=== PATIENT | female | born 1975 | race African-American/Black ===

== ENCOUNTER 2016-04-24 01:30 | Inpatient (IN) | payer MEDICARE, MEDICAID ==
[~2016-04-24] VITALS: Ht 160 cm; Wt 53.8 kg
[~2016-04-24 01:30] MED LIST: 1-ME1LIQ PO; ASPI81TA82 PO; ATOR10TA PO; ELIP667T PO; EPZITAB4 PO; LABE300T PO; LAMI150 PO; LISI-363 PO; METH750T2 PO; PROT40TA PO; RENACAP2 PO; TUMS500C PO; [UNRECOGNIZED DRUG - CODE] PO
[2016-04-24 01:33] VITALS: BP 138/81; PULSE 84; RESP 16; TEMP 99.2; O2SAT 98
[2016-04-24] MEDS ORDERED: SODIUM CHLORIDE 0.9% FLUSH 5 ML FLUSH IVF PRN (09:45)
--- NOTE | 2016-04-24 09:50 | PD ---
HPI Chief Complaint: Abdominal Pain Time Seen by Provider: 09:37 Travel History International Travel<30 days: No Contact w/Intl Traveler<30days: No Traveled to known affect area: No History of Present Illness HPI Patient seen in triage. Is a 40-year-old woman with end-stage renal disease, on peritoneal dialysis at home, as well as HIV, on medications, last viral load undetectable, who presents with 3 days of abdominal pain, copious watery diarrhea, and feeling generally poorly. Her dialysate fluid has been dark in color. She she's been weak and barely able to perform her dialysis which he has been doing it. No blood. No vomiting. No definite fevers. History Past Medical History Narrative Medical HIV End-stage renal disease, on home peritoneal dialysis Hypertension Tetanus Vaccination: < 5 Years Influenza Vaccination: Yes : 1 Para: 1 Social History Alcohol Use: No Tobacco Use: No Allergies-Medications (Allergen,Severity, Reaction): Coded Allergies: Iron Dextran (Verified Allergy, Severe, IRON INJECTIONS, 04/24/16) PT STATES THEY HAVE NOW CHANGED BRANDS OF IRON & SHE IS ABLE TO TAKE THE NEW BRAND OF IRON Reported Meds & Prescriptions Reported Meds & Active Scripts Active Robaxin (Methocarbamol) 750 Mg Tab 750 Mg PO Q8HR Reported Epzicom 600/300 (Abacavir/Lamivudine) Tab 1 Tab PO HS Tums (Calcium Carbonate) 500 Mg Chew 500 Mg PO DAILY Lisinopril 20 mg (Lisinopril) 20 Mg Tab 1 Tab PO BID Atorvastatin 10 mg (Atorvastatin Calcium) 10 Mg Tab 1 Tab PO 3 DAYS/WEEK 30 Days Renal (B-Complex W/ C & Folic Acid) Softgel Cap 1 Cap PO DAILY Protonix (Pantoprazole Sodium) 40 Mg Tabdr 40 Mg PO DAILY Aspir-81 (Aspirin) 81 Mg Tab 81 Mg PO DAILY Amlodipine Besylate 10 mg (Amlodipine Besylate) 10 Mg Tab 10 Mg PO DAILY Labetalol Hcl (Labetalol HCl) 300 Mg Tab 300 Mg PO TID Sustiva (Efavirenz) 200 Mg Cap 600 Mg PO HS Epivir (Lamivudine) 150 Mg Tab 0 PO HS Phoslo (Calcium Acetate) 667 Mg Cap 2,001 Mg PO TID Review of Systems Except as stated in HPI: all other systems reviewed are Neg Physical Exam Narrative GENERAL: Somewhat ill-appearing 40-year-old woman, looks uncomfortable and nontoxic. SKIN: Warm and dry. Decreased skin turgor. HEAD: Atraumatic. Normocephalic. CARDIOVASCULAR: Regular rate and rhythm. No murmur appreciated. RESPIRATORY: No accessory muscle use. Clear to auscultation. Breath sounds equal bilaterally. GASTROINTESTINAL: Abdomen soft, non-tender, nondistended. Hepatic and splenic margins not palpable. MUSCULOSKELETAL: No obvious deformities. No edema. NEUROLOGICAL: Awake and alert. No obvious cranial nerve deficits. Motor grossly within normal limits. Normal speech. PSYCHIATRIC: Appropriate mood and affect; insight and judgment normal. Data Data Last Documented VS Vital Signs Date Time Temp Pulse Resp B/P Pulse Ox O2 Delivery O2 Flow Rate FiO2 04/24/16 01:33 99.2 84 16 138/81 98 Orders Complete Blood Count With Diff (04/24/16 09:43) Comprehensive Metabolic Panel (04/24/16 09:43) Lipase (04/24/16 09:43) Lactic Acid (04/24/16 09:43) Prothrombin Time / Inr (Pt) (04/24/16 09:43) Act Partial Throm Time (Ptt) (04/24/16 09:43) Iv Access Insert/Monitor (04/24/16 09:43) Ecg Monitoring (04/24/16 09:43) Oximetry (04/24/16 09:43) NPO (04/24/16 09:43) Sodium Chloride 0.9% Flush (Ns Flush) (04/24/16 09:45) Blood Culture (04/24/16 09:43) Stool Ova And Parasite Screen (04/24/16 09:43) Stool Culture With E.Coli 0157 (04/24/16 09:43) C Diff Toxin Pcr (04/24/16 09:43) MDM Medical Decision Making Medical Screen Exam Complete: Yes Emergency Medical Condition: Yes Differential Diagnosis Bacterial peritonitis, infectious diarrhea, opportunistic infection, diverticulitis, sepsis, other Narrative Course Medical decision making 40-year-old woman, appears somewhat unwell, presents with abdominal pain and diarrhea feeling poorly in the setting of end-stage renal disease or peritoneal dialysis, dark fluid, as well as HIV. Labs will be sent. Patient may need abdominal imaging. May need further evaluation for bacterial peritonitis. Patient will be sent for medical bed, with care assumed by provider in the back. Luisito Moreno MD Apr 24, 2016 09:50
[2016-04-24 10:19] LABS: AUTOMATED NEUTROPHIL # 10.5 TH/MM3 (1.8-7.7); BASOPHIL % 0.2 % (0.0-2.0); HEMATOCRIT 35.8 % (35.0-46.0); HEMO FLAGS DIFF FINAL; LYMPH % 3.8 % (9.0-44.0); LYMPHOCYTE # 0.4 TH/MM3 (1.0-4.8); MEAN CORPUSCULAR HEMOGLOBIN 33.9 PG (27.0-34.0); MEAN CORPUSCULAR HGB CONC 33.6 % (32.0-36.0); MONO % 4.2 % (0.0-8.0); NEUT % 91.8 % (16.0-70.0); PLATELET COUNT 236 TH/MM3 (150-450); RED BLOOD COUNT 3.54 MIL/MM3 (4.00-5.30); RED CELL DISTRIBUTION WIDTH 14.5 % (11.6-17.2); WHITE BLOOD COUNT 11.4 TH/MM3 (4.0-11.0)
[2016-04-24 10:25] LABS: APTT (PATIENT) 33.6 SEC (24.3-30.1); INTERNATIONAL NORMALIZED RATIO 1.1 RATIO; PROTHROMBIN TIME - PATIENT 11.9 SEC (9.8-11.6)
[2016-04-24 10:35] LABS: ALT (GPT) 36 U/L (10-53); ANION GAP 17 MEQ/L (5-15); AST (GOT) 43 U/L (15-37); BICARBONATE 22.9 MEQ/L (21.0-32.0); BLOOD UREA NITROGEN 77 MG/DL (7-18); CHLORIDE 93 MEQ/L (98-107); GLOMERULAR FILTRATION RATE 3 ML/MIN (>89); POTASSIUM 3.7 MEQ/L (3.5-5.1); SODIUM (NA) 133 MEQ/L (136-145)
[2016-04-24 10:37] LABS: ALKALINE PHOSPHATASE 66 U/L (45-117); TOTAL BILIRUBIN ADULT 0.7 MG/DL (0.2-1.0)
[2016-04-24 15:30] VITALS: BP 154/93; PULSE 89; RESP 18; RESP 20; TEMP 98.9; O2SAT 96
--- NOTE | 2016-04-24 16:06 | RADRPT ---
EXAM DATE/TIME: 04/24/2016 15:39 [facility] COMPARISON: No previous studies available for comparison. INDICATIONS : Abdomen pain with diarrhea for 3 days. Peritoneal dialysis patient ORAL CONTRAST: No oral contrast ingested. RADIATION DOSE: 9.96 CTDIvol (mGy) MEDICAL HISTORY : Renal failure, chronic. Gastroesophageal reflux disease. Hypertension. SURGICAL HISTORY : Hysterectomy. ENCOUNTER: Initial ACUITY: 3 days PAIN SCALE: 10/10 LOCATION: diffuse abdomen TECHNIQUE: Volumetric scanning of the abdomen and pelvis was performed. Using automated exposure control and ad justment of the mA and/or kV according to patient size, radiation dose was kept as low as reasonably achievable to obtain optimal diagnostic quality images. FINDINGS: LOWER LUNGS: The visualized lower lungs are clear. LIVER: Homogeneous density without lesion. There is no dilation of the biliary tree. No calcified gallston es. Large abdominal ascites. SPLEEN: Normal size without lesion. PANCREAS: Within normal limits. KIDNEYS: Small atrophic kidneys containing numerous bilateral calcifications. Bilateral renal cysts. There is a dialysis catheter present with tip in the right upper quadrant. Small cyst involving the right mid kidney is partially calcified. ADRENAL GLANDS: Within normal limits. VASCULAR: There is no aortic aneurysm. BOWEL/MESENTERY: There is no free intraperitoneal air or fluid. Small hiatal hernia. Multiple fluid-filled bowel loops . ABDOMINAL WALL: Within normal limits. RETROPERITONEUM: There is no lymphadenopathy. BLADDER: No wall thickening or mass. REPRODUCTIVE: Within normal limits. INGUINAL: There is no lymphadenopathy or hernia. MUSCULOSKELETAL: Within normal limits for patient age. CONCLUSION: 1. Multiple fluid-filled bowel loops. No obstruction. 2. Large amount of abdominal ascites. 3. Atrophic bilateral kidneys with numerous calcifications and cysts. Brandon Romero MD on April 24, 2016 at 16:02 Board Certified Radiologist. This report was verified electronically.
[2016-04-24] MEDS ORDERED: SODIUM CHLORIDE 0.9% FLUSH 5 ML FLUSH FLUSH PRN (16:45)
[2016-04-24] MEDS ORDERED: ACETAMINOPHEN 325 MG TAB PO PRN (16:45)
[2016-04-24] MEDS ORDERED: ONDANSETRON HCL 4 MG/2 ML VIAL IVP PRN (16:45)
[2016-04-24] MEDS ORDERED: NALOXONE HCL 0.4 MG/ML AMP IV PRN (16:45)
--- NOTE | 2016-04-24 16:50 | HHI.HP ---
[facility] Service Family Medicine Primary Care Physician Jarod Tian MD Admission Diagnosis diarrhea Diagnoses: International Travel<30 Days: No Contact w/Intl Traveler<30days: No Known Affected Area: No History of Present Illness This is a 40-year-old -Central [place] female with past history significant for end-stage renal disease, hypertension, and HIV for over 10 years. She is presenting today [facility] [facility] due to severe abdominal pain and diarrhea. About 3- 4 days ago she had a cold and the cold began to worsen and her abdominal pain started 3 days ago. She started having diarrhea 3 days ago as well. She says the diarrhea occurs every time she coughs. She denies any nausea or vomiting during this timeframe. Abdominal pain progressively worsened throughout the last few days and she's been feeling feverish and chills. She reports getting peritoneal dialysis every day 3 times a day however her last round of dialysis was Friday04/23/16 and she only did it one time that day, because she was feeling too sick to perform the dialysis. Prior to seeing the patient case of been discussed between the ED doctor and the biomass production manager who will be evaluating for possible SBP and need for antibiotics. Patient reports that the abdominal pain is diffuse throughout her entire body, and she feels like her belly is slightly swollen. She thinks the swelling is due to the fact that she has not had her dialysis. (Rj Lovelace MD R2) Review of Systems Constitutional: COMPLAINS OF: Fatigue, Fever, Chills, Change in appetite ( decreased), DENIES: Weight gain, Weight loss, Dizziness Eyes: DENIES: Blurred vision, Vision loss, Double Vision Ears, nose, mouth, throat: COMPLAINS OF: Running Nose, DENIES: Tinnitus, Nasal discharge, Throat pain, Hoarseness, Sinus Pain, Toothache Respiratory: COMPLAINS OF: Cough, Shortness of breath, DENIES: Sputum production Cardiovascular: DENIES: Chest pain, Syncope, Orthopnea Gastrointestinal: COMPLAINS OF: Diarrhea, DENIES: Black stools, Bloody stools , Nausea, Vomiting, Difficulty Swallowing Musculoskeletal: COMPLAINS OF: Joint pain, Muscle aches, DENIES: Joint Swelling, Back pain Integumentary: DENIES: Pruritus, Rash Hematologic/lymphatic: DENIES: Bruising Neurologic: DENIES: Abnormal gait, Headache, Seizures, Tremor, Poor Balance Psychiatric: DENIES: Anxiety, Depression (Rj Lovelace MD R2) Past Family Social History Past Medical History ESRD HIV stable HTN Past Surgical History suprapubic catheter Reported Medications Reported Meds & Active Scripts Active Labetalol 300mg TID Lisinopril 20mg BID Amlodipine 10mg Daily Awaiting friend to bring in medications (Rj Lovelace MD R2) Allergies: Coded Allergies: Iron Dextran (Verified Allergy, Severe, IRON INJECTIONS, 04/24/16) PT STATES THEY HAVE NOW CHANGED BRANDS OF IRON & SHE IS ABLE TO TAKE THE NEW BRAND OF IRON Family History noncontributory Social History Lives with Mom and daughter Going to school for HVAC Denies smoking denies drinking Smokes marijuana on disability (Rj Lovelace MD R2) Physical Exam Vital Signs Vital Signs Date Time Temp Pulse Resp B/P Pulse Ox O2 Delivery O2 Flow Rate FiO2 04/24/16 15:30 98.9 89 20 154/93 96 Room Air 04/24/16 15:30 98.9 89 18 154/93 96 Room Air 04/24/16 01:33 99.2 84 16 138/81 98 Physical Exam CONSTITUTIONAL/GEN: normally nourished, in significant distress with abdominal pain and frequent watery stools. EYES: conjunctiva normal, PERRLA, EOMI. ENT: Mouth and pharynx normal. NECK: No lymphadenopathy LUNGS: clear A-P, respiratory effort is normal. CARDIOVASCULAR: RR without murmur or gallop. No significant edema. GI/ABD: Protuberant, tender to palpation overall, and + bowel sounds.. : no CVA tenderness NEURO: No focal deficits. SKIN: color normal, no rashes noted. HEME/LYMPH: no bruising, petechia or significant adenopathy MUSC: back is normal in appearance. Extremities are normal in appearance. PSYCH/MENTAL STATUS: Alert and oriented x 3. Laboratory Laboratory Tests Test 04/24/16 09:55 White Blood Count 11.4 Red Blood Count 3.54 Hemoglobin 12.0 Hematocrit 35.8 Mean Corpuscular Volume 101.0 Mean Corpuscular Hemoglobin 33.9 Mean Corpuscular Hemoglobin 33.6 Concent Red Cell Distribution Width 14.5 Platelet Count 236 Mean Platelet Volume 9.3 Neutrophils (%) (Auto) 91.8 Lymphocytes (%) (Auto) 3.8 Monocytes (%) (Auto) 4.2 Eosinophils (%) (Auto) 0.0 Basophils (%) (Auto) 0.2 Neutrophils # (Auto) 10.5 Lymphocytes # (Auto) 0.4 Monocytes # (Auto) 0.5 Eosinophils # (Auto) 0.0 Basophils # (Auto) 0.0 CBC Comment DIFF FINAL Differential Comment Prothrombin Time 11.9 Prothromb Time International 1.1 Ratio Activated Partial 33.6 Thromboplast Time Sodium Level 133 Potassium Level 3.7 Chloride Level 93 Carbon Dioxide Level 22.9 Anion Gap 17 Blood Urea Nitrogen 77 Creatinine 18.69 Estimat Glomerular Filtration 3 Rate Random Glucose 93 Lactic Acid Level 1.2 Calcium Level 7.5 Total Bilirubin 0.7 Aspartate Amino Transf 43 (AST/SGOT) Alanine Aminotransferase 36 (ALT/SGPT) Alkaline Phosphatase 66 Total Protein 7.5 Albumin 2.5 Lipase 76 Date/Time Procedure Status Source Growth 04/24/16 09:55 Aerobic Blood Culture Received Blood Peripheral Pending 04/24/16 09:55 Anaerobic Blood Culture Received Blood Peripheral Pending (Rj Lovelace MD R2) Result Diagram: 04/24/16 0955 04/24/16 0955 Imaging Last Impressions Abdomen/Pelvis CT 04/24/16 0000 Signed Impressions: Service Date/Time: Sunday, April 24, 2016 15:39 - CONCLUSION: 1. Multiple fluid-filled bowel loops. No obstruction. 2. Large amount of abdominal ascites. 3. Atrophic bilateral kidneys with numerous calcifications and cysts. Brandon Romero MD (Rj Lovelace MD R2) Assessment and Plan Assessment and Plan 40-year-old -[place] female with past history significant for end-stage renal disease, hypertension, and HIV for over 10 years. Being admitted for diarrhea and abdominal pain, differential includes gastritis versus SBP versus electrolyte imbalance Code Status Full code Discussed Condition With SDW: Dr. Nicole (Rj Lovelace MD R2) Attending Attestation Patient seen and examined. Case reviewed and discussed with the resident team. Agree with plan of care as discussed with me and documented in the resident note. (Mary Alice Nicole MD) Problem List: (1) Abdominal pain Status: Acute Plan: The patient has severe abdominal pain and multiple bouts of diarrhea. Differential gastritis versus SBP versus diverticulitis versus infectious diarrhea. Concern for dehydration, however patient has ascites seen on CT of the abdomen. Also patient is missing peritoneal dialysis. Christianson for patient to obtain dialysis today 04/24/16 with fluid rehydration to be performed during that dialysis, also awaiting nephrology recommendations. We'll start half maintenance and readjust in the morning * Admit to inpatient * Consult to nephrology for dialysis and SBP recommendations (patient biomass production manager does not come to this hospital, working to obtain recs from covering biomass production manager) * Zofran 4 mg IV every 6 hours when necessary nausea or vomiting * Protonix 20 mg by mouth daily * Tylenol 650 mg by mouth every 4 hours * Ceftriaxone 2 g IV every 24 hours * Penn Laird 5/325 mg by mouth every 4 hours when necessary pain scale 1-5 * Penn Laird 10/325 mg by mouth every 4 hours when necessary pain scale 6-10 * Morphine 1 mg IV every 3 hours when necessary breakthrough pain * Plan for patient to receive peritoneal dialysis * Blood cultures pending * Stool cultures pending * Peritoneal cell count ordered: Results pending * CBC, CMP ordered for the a.m. (2) End stage kidney disease Status: Acute Plan: Patient history of end-stage renal disease. She gets dialysis 3 times a day via peritoneal dialysis. Patient has missed several of her doses of dialysis between the last 2 days due to her illness. * Consult the nephrology for dialysis recommendations and SBP recommendations (3) HIV (human immunodeficiency virus infection) Status: Acute Plan: HIV medications recently adjusted. She does not know the medication. Her friend is bringing them up and she will be restarted once the information is obtained. Most recent has nondetectable viral count (4) Hypertension Status: Acute Plan: Patient has a long-standing history of hypertension. * Holding patient's lisinopril * Continue labetalol 30 mg by mouth every 12 hours * Continue amlodipine 10 mg by mouth daily * Hydralazine IV when necessary elevated blood pressure (5) Nutrition, metabolism, and development symptoms Status: Acute Plan: Renal diet as tolerated Monitor electrolytes and replace accordingly Titrate oxygen Vitals every 4 DVT prophylaxis with heparin and SCDs CODE STATUS: Full code Disposition: Pending improvement of abdominal pain and nephrology recommendations (Rj Lovelace MD R2) Physician Certification 2 Midnight Certification Type: Admission for Inpatient Services Order for Inpatient Services The services are ordered in accordance with Medicare regulations or non- Medicare payer requirements, as applicable. In the case of services not specified as inpatient-only, they are appropriately provided as inpatient services in accordance with the 2-midnight benchmark. Estimated LOS (days): 3 days is the estimated time the patient will need to remain in the hospital, assuming treatment plan goals are met and no additional complications. Post-Hospital Plan: Home (Rj Lovelace MD R2) Rj Lovelace MD R2 Apr 24, 2016 16:50 Mary Alice Nicole MD Apr 25, 2016 12:18
--- NOTE | 2016-04-24 17:07 | HHI.FPPN ---
Subjective Remarks Pt. seen, examined and discussed with the medicine team. This is a 40 yo AA female with known ESRD and HIV (undetectable viral load) with 3 day history of cough, fever chills and abdominal pain accompanied by frequent watery stools. No vomiting. She was only able to dialyze peritoneally X1 yesterday, none today, she usually dialyzes 3 times daily for approx. 20 min [address] She sees Dr. Reese for her ESRD and Dr. Sukumar Ojeda for her HIV. Chronic problems include HTN for which she takes labetolol, lisinopril and amlodipine. Has a new HIV med, cannot recall name. Lives with Mom and daughter, takes some classes but unable to work (on disability). Uses occasional weed but no other tobacco, etoh or illicits. See H&P for this hospitalization for additional historical details. ROS only pertinent to HPI, all other systems asked and are negative. Objective Vitals Vital Signs Date Time Temp Pulse Resp B/P Pulse Ox O2 Delivery O2 Flow Rate FiO2 04/24/16 15:30 98.9 89 20 154/93 96 Room Air 04/24/16 15:30 98.9 89 18 154/93 96 Room Air 04/24/16 01:33 99.2 84 16 138/81 98 Result Diagram: 04/24/16 0955 04/24/16 0955 Imaging Last Impressions Abdomen/Pelvis CT 04/24/16 0000 Signed Impressions: Service Date/Time: Sunday, April 24, 2016 15:39 - CONCLUSION: 1. Multiple fluid-filled bowel loops. No obstruction. 2. Large amount of abdominal ascites. 3. Atrophic bilateral kidneys with numerous calcifications and cysts. Brandon Romero MD Objective Remarks O. CONSTITUTIONAL/GEN: normally nourished, in significant distress with abdominal pain and frequent watery stools. EYES: conjunctiva normal, PERRLA, EOMI. ENT: Mouth and pharynx normal. NECK: No lymphadenopathy LUNGS: clear A-P, respiratory effort is normal. CARDIOVASCULAR: RR without murmur or gallop. No significant edema. GI/ABD: Protuberant, tender to palpation overall, and + bowel sounds.. : no CVA tenderness NEURO: No focal deficits. SKIN: color normal, no rashes noted. HEME/LYMPH: no bruising, petechia or significant adenopathy MUSC: back is normal in appearance. Extremities are normal in appearance. PSYCH/MENTAL STATUS: Alert and oriented x 3. A/P Assessment and Plan ESRD with abdominal pain and diarrhea, stable HIV and HTN. Attending Attestation Patient seen and examined. Case reviewed and discussed with the resident team. Agree with plan of care as discussed with me and documented in the resident note. Mary Alice Nicole MD Apr 24, 2016 17:07
[2016-04-24 17:25] VITALS: BP 145/86; PULSE 84; RESP 20; O2SAT 98
[2016-04-24] MEDS ORDERED: AMLO10TA2 PO (18:16)
[2016-04-24] MEDS ORDERED: PANT40TA3 PO (18:16)
[2016-04-24] MEDS ORDERED: PHOS667C5 PO (18:16)
[2016-04-24] MEDS ORDERED: TUMS1000 CHEW (18:16)
[2016-04-24] MEDS ORDERED: LABE300T PO (18:16)
[2016-04-24] MEDS ORDERED: ASPI81TA19 PO (18:16)
[2016-04-24] MEDS ORDERED: RENATAB5 PO (18:16)
[2016-04-24] MEDS ORDERED: LISI-515 PO (18:16)
[2016-04-24] MEDS ORDERED: hydrALAZINE HCL 20 MG/ML VIAL IV PRN (18:30)
[2016-04-24] MEDS: HEPARIN SODIUM - SQ 10,000 UNITS/ML VIAL SQ SCH (18:30)
[2016-04-24] MEDS ORDERED: ACETAMINOPHEN/HYDROcodone 325 MG/5 MG TAB PO PRN (18:30)
[2016-04-24] MEDS ORDERED: ACETAMINOPHEN/HYDROcodone 325 MG/10 MG TAB PO PRN (18:30)
[2016-04-24] MEDS ORDERED: MORPHINE SULFATE 4 MG/ML INJ IV PUSH PRN (18:30)
[2016-04-24 18:38] LABS: C. DIFF EPI 027 PRESUMPTIVE NEGATIVE (NEGATIVE)
[2016-04-24 18:57] LABS: C. DIFF TOXIN PCR POSITIVE (NEGATIVE)
[2016-04-24 20:00] VITALS: BP 137/79; PULSE 88; RESP 18; TEMP 100.5; O2SAT 96
[2016-04-24] MEDS ORDERED: SODIUM CHLORID 0.9% 500 ML INJ 500 ML IV SCH (20:15)
[2016-04-24 20:16] VITALS: PULSE 91
[2016-04-24] MEDS ORDERED: HEPARIN SODIUM - SQ 10,000 UNITS/ML VIAL SQ SCH (22:00)
[2016-04-24] MEDS: cefTRIAXone INJ 2,000 MG in SODIUM CHLORIDE 0.9% INJ 100 ML IV SCH (22:02)
[2016-04-24] MEDS: PANTOPRAZOLE SOD 20 MG DELAYED RELEASE TAB PO SCH (22:03)
[2016-04-24] MEDS: LABETALOL HCL 300 MG TAB PO SCH (22:04)
[2016-04-24] MEDS: SODIUM CHLORIDE 0.9% FLUSH 5 ML FLUSH FLUSH SCH (22:11)
[2016-04-25] VITALS (9 sets, daily range): BP systolic 102–138; BP diastolic 60–85; PULSE 77–89; RESP 16–18; TEMP 96–100.2; O2SAT 94–99
[2016-04-25] MEDS: HEPARIN SODIUM - SQ 10,000 UNITS/ML VIAL SQ SCH ×3 (03:13→17:58)
[2016-04-25 05:19] LABS: AUTOMATED NEUTROPHIL # 10.9 TH/MM3 (1.8-7.7); BASOPHIL % 0.3 % (0.0-2.0); HEMATOCRIT 32.7 % (35.0-46.0); HEMO FLAGS DIFF FINAL; LYMPH % 5.8 % (9.0-44.0); LYMPHOCYTE # 0.7 TH/MM3 (1.0-4.8); MEAN CELL VOLUME 100.7 FL (80.0-100.0); MEAN CORPUSCULAR HEMOGLOBIN 34.2 PG (27.0-34.0); MONO % 4.3 % (0.0-8.0); NEUT % 89.6 % (16.0-70.0); PLATELET COUNT 203 TH/MM3 (150-450); RED BLOOD COUNT 3.25 MIL/MM3 (4.00-5.30); RED CELL DISTRIBUTION WIDTH 14.4 % (11.6-17.2); WHITE BLOOD COUNT 12.2 TH/MM3 (4.0-11.0)
[2016-04-25 05:52] LABS: BICARBONATE 20.5 MEQ/L (21.0-32.0); POTASSIUM 4.1 MEQ/L (3.5-5.1)
[2016-04-25 07:05] LABS: CALCIUM-PROTEIN CORRECTED 6.8 MG/DL (8.5-10.1)
[2016-04-25] MEDS: SODIUM CHLORIDE 0.9% FLUSH 5 ML FLUSH FLUSH SCH ×2 (09:00→21:10)
[2016-04-25] MEDS ORDERED: SODIUM CHLORIDE 0.9% FLUSH 5 ML FLUSH IVF PRN (09:15)
[2016-04-25] MEDS: LABETALOL HCL 300 MG TAB PO SCH ×2 (09:50→21:10)
[2016-04-25] MEDS: PANTOPRAZOLE SOD 20 MG DELAYED RELEASE TAB PO SCH (09:50)
[2016-04-25] MEDS: metroNIDAZOLE 500 MG INJ 100 ML IV SCH ×2 (09:52→17:58)
--- NOTE | 2016-04-25 10:16 | PD.CONS ---
HPI Service Nephrology Consult Requested By Dr. Anderson Reason for Consult ESRD on peritoneal dialysis Primary Care Physician Jarod Tian MD History of Present Illness Patient is a 40-year-old female with history of end-stage renal disease on peritoneal dialysis, HIV disease, hypertension she follows with Dr. Tian who has seen her last month, patient is having abdominal pain and severe diarrhea abdominal distention over past 3 days she denies taking recent antibiotics, her stools are positive for C. difficile and she has been admitted for further treatment. She has not done her peritoneal dialysis for the past 3 days due to her medical condition. Review of Systems Constitutional: COMPLAINS OF: Fatigue Gastrointestinal: COMPLAINS OF: Abdominal pain, Diarrhea, Nausea Musculoskeletal: COMPLAINS OF: Joint pain Past Family Social History Allergies: Coded Allergies: Iron Dextran (Verified Allergy, Severe, IRON INJECTIONS, 04/24/16) PT STATES THEY HAVE NOW CHANGED BRANDS OF IRON & SHE IS ABLE TO TAKE THE NEW BRAND OF IRON Past Medical History HIV disease Hypertension ESRD Peritoneal dialysis Anemia Secondary hyperparathyroidism GI bleed GERD CVA Past Surgical History Tenckhoff catheter placement Cataract surgery History of parathyroidectomy Reported Medications Reported Meds & Active Scripts Active Reported Pantoprazole (Pantoprazole Sodium) 40 Mg Tab 40 Mg PO DAILY Lisinopril 20 Mg Tab 20 Mg PO BID Labetalol (Labetalol HCl) 300 Mg Tab 300 Mg PO TID Tums Ultra 1000 (Calcium Carbonate (Antacid)) 1,000 Mg Chew 4,000 Mg CHEW DAILY Phoslo (Calcium Acetate (Phosphate Binder)) 667 Mg Cap 2,001 Mg PO TID Cynthia-Yaquelin (B-Complex W/ C & Folic Acid) 1 Tab 1 Tab PO DAILY Aspir-Low (Aspirin) 81 Mg Tabdr 81 Mg PO DAILY Amlodipine (Amlodipine Besylate) 10 Mg Tab 10 Mg PO DAILY Active Ordered Medications Current Medications Medications (Trade) Dose Ordered Sig/Chinmay Route Start Time Stop Time Status Last Admin (NS Flush) 2 ml UNSCH PRN FLUSH 04/24/16 16:45 (NS Flush) 2 ml BID FLUSH 04/24/16 21:00 04/25/16 09:00 (Tylenol) 650 mg Q4H PRN PO 04/24/16 16:45 (Zofran Inj) 4 mg Q6H PRN IVP 04/24/16 16:45 (Heparin Inj) 5,000 units Q8H SQ 04/24/16 17:00 04/25/16 09:51 (Narcan Inj) 0.4 mg UNSCH PRN IV 04/24/16 16:45 Pantoprazole Sodium 20 mg 20 mg DAILY PO 04/24/16 18:30 04/25/16 09:50 (Rocephin Inj/NS Inj) 100 ml @ 200 mls/hr Q24H IV 04/24/16 20:00 04/24/16 22:02 ([place] 5-325 Mg) 1 tab Q4H PRN PO 04/24/16 18:30 ([place] 10-325 Mg) 1 tab Q4H PRN PO 04/24/16 18:30 04/24/16 22:04 (Morphine Inj) 1 mg Q3H PRN IV PUSH 04/24/16 18:30 04/25/16 03:17 (Trandate) 300 mg Q12HR PO 04/24/16 21:00 04/25/16 09:50 (Norvasc) 10 mg DAILY PO 04/25/16 09:00 04/25/16 09:51 Hydralazine HCl 10 mg 10 mg Q6H PRN IV 04/24/16 18:30 (Flagyl 500 Mg Inj) 100 ml @ 100 mls/hr Q8H IV 04/25/16 10:00 04/25/16 09:52 (NS Flush) 10 ml UNSCH PRN IVF 04/25/16 09:15 Family History Noncontributory Social History Denies smoking or alcohol use to smoke marijuana Physical Exam Vital Signs Vital Signs Date Time Temp Pulse Resp B/P Pulse Ox O2 Delivery O2 Flow Rate FiO2 04/25/16 08:00 99.5 87 18 126/74 96 04/25/16 04:00 100.2 87 16 129/79 99 04/25/16 00:00 99.5 89 18 138/85 97 04/24/16 20:30 Room Air 04/24/16 20:16 91 04/24/16 20:00 100.5 88 18 137/79 96 04/24/16 17:25 84 20 145/86 98 Room Air 04/24/16 15:30 98.9 89 20 154/93 96 Room Air 04/24/16 15:30 98.9 89 18 154/93 96 Room Air Physical Exam GENERAL: Well-nourished, well-developed patient. SKIN: Warm and dry. HEAD: Normocephalic. EYES: No scleral icterus. No injection or drainage. NECK: Supple, trachea midline. No JVD or lymphadenopathy. CARDIOVASCULAR: Tachycardia RESPIRATORY: Breath sounds equal bilaterally. No accessory muscle use. GASTROINTESTINAL: Abdomen tenderness present distended. EXTREMITIES: No cyanosis, or edema. NEUROLOGICAL: Awake, alert, and oriented x 3. Non-focal. Laboratory Laboratory Tests Test 04/24/16 04/25/16 16:10 04:52 Stool C. difficile Toxin (PCR) POSITIVE Stl C. difficile Toxin PRESUMPTIVE Epiderm 027 NEGATIVE White Blood Count 12.2 Red Blood Count 3.25 Hemoglobin 11.1 Hematocrit 32.7 Mean Corpuscular Volume 100.7 Mean Corpuscular Hemoglobin 34.2 Mean Corpuscular Hemoglobin 34.0 Concent Red Cell Distribution Width 14.4 Platelet Count 203 Mean Platelet Volume 9.5 Neutrophils (%) (Auto) 89.6 Lymphocytes (%) (Auto) 5.8 Monocytes (%) (Auto) 4.3 Eosinophils (%) (Auto) 0.0 Basophils (%) (Auto) 0.3 Neutrophils # (Auto) 10.9 Lymphocytes # (Auto) 0.7 Monocytes # (Auto) 0.5 Eosinophils # (Auto) 0.0 Basophils # (Auto) 0.0 CBC Comment DIFF FINAL Differential Comment Sodium Level 133 Potassium Level 4.1 Chloride Level 94 Carbon Dioxide Level 20.5 Anion Gap 19 Blood Urea Nitrogen 98 Creatinine 20.73 Estimat Glomerular Filtration 2 Rate Random Glucose 83 Calcium Level 6.5 Protein Corrected Calcium 6.8 Total Protein 6.6 Date/Time Procedure Status Source Growth 04/24/16 16:10 Cryptosporidium Exam Received Stool Stool Pending 04/24/16 16:10 Giardia Antigen (JAELYN) Received Stool Stool Pending 04/24/16 09:55 Aerobic Blood Culture Received Blood Peripheral Pending 04/24/16 09:55 Anaerobic Blood Culture Received Blood Peripheral Pending Result Diagram: 04/25/16 0452 04/25/16 0452 Imaging Last Impressions Abdomen/Pelvis CT 04/24/16 0000 Signed Impressions: Service Date/Time: Sunday, April 24, 2016 15:39 - CONCLUSION: 1. Multiple fluid-filled bowel loops. No obstruction. 2. Large amount of abdominal ascites. 3. Atrophic bilateral kidneys with numerous calcifications and cysts. Brandon Romero MD Assessment and Plan Problem List: (1) End stage kidney disease Plan: Patient is positive for C. difficile and is on metronidazole, she will be restarted on peritoneal dialysis level checked the cell count and cultures most likely she has a colitis caused by C. difficile and the level continues to direct antibiotics and minimize other antibiotics, she may need oral vancomycin , she is on metronidazole. (2) Abdominal pain Plan: Likely due to C. difficile colitis (3) Clostridium difficile colitis Plan: Positive PCR (4) H/O parathyroidectomy Plan: Need to give her calcium supplement and continue with phosphorus binders with Victor Manuel Farrar MD Apr 25, 2016 10:16
[2016-04-25] MEDS: CALCIUM ACETATE 667 MG CAP PO SCH ×2 (11:56→18:00)
[2016-04-25] MEDS: CALCIUM CARBONATE 500 MG CHEWABLE TAB CHEW SCH ×3 (11:56→20:00)
--- NOTE | 2016-04-25 12:09 | HHI.FPPN ---
Subjective Remarks Patient seen and examined this morning. Did not receive dialysis overnight. Reports continued diarrhea this morning. C diff positive. Some abdominal pain. Denies any fever/chills, chest pain, SOB, leg pain. (Killian Mckeon MD R1) Objective Vitals Vital Signs Date Time Temp Pulse Resp B/P Pulse Ox O2 Delivery O2 Flow Rate FiO2 04/25/16 11:13 86 04/25/16 08:00 99.5 87 18 126/74 96 04/25/16 08:00 Room Air 04/25/16 04:00 100.2 87 16 129/79 99 04/25/16 00:00 99.5 89 18 138/85 97 04/24/16 20:30 Room Air 04/24/16 20:16 91 04/24/16 20:00 100.5 88 18 137/79 96 04/24/16 17:25 84 20 145/86 98 Room Air 04/24/16 15:30 98.9 89 20 154/93 96 Room Air 04/24/16 15:30 98.9 89 18 154/93 96 Room Air (Killian Mckeon MD R1) Result Diagram: 04/25/16 0452 04/25/16 0452 Objective Remarks O. CONSTITUTIONAL/GEN: normally nourished, laying in bed LUNGS: clear A-P, respiratory effort is normal. CARDIOVASCULAR: RR without murmur or gallop. No significant edema. GI/ABD: Protuberant, tender to palpation overall, and + bowel sounds.. : no CVA tenderness NEURO: No focal deficits. SKIN: color normal, no rashes noted. HEME/LYMPH: no bruising, petechia or significant adenopathy MUSC: back is normal in appearance. Extremities are normal in appearance. PSYCH/MENTAL STATUS: Alert and oriented x 3. (Killian Mckeon MD R1) A/P Assessment and Plan 40-year-old -[place]i female with past history significant for end-stage renal disease, hypertension, and HIV for over 10 years. Being admitted for diarrhea and abdominal pain, differential includes gastritis versus SBP versus electrolyte imbalance Discharge Planning Pending nephrology recs (Killian Mckeon MD R1) Attending Attestation Patient seen and examined. Case reviewed and discussed with the resident team. Agree with plan of care as discussed with me and documented in the resident note. (Mary Alice Nicole MD) Problem List: (1) Clostridium difficile colitis Status: Acute Plan: C diff positive PCR * Flagyl 500mg IV q8H * Zofran 4 mg IV every 6 hours when necessary nausea or vomiting * Protonix 20 mg by mouth daily * Tylenol 650 mg by mouth every 4 hours Pain * [place] 5/325 mg by mouth every 4 hours when necessary pain scale 1-5 * [place] 10/325 mg by mouth every 4 hours when necessary pain scale 6-10 * Morphine 1 mg IV every 3 hours when necessary breakthrough pain (2) End stage kidney disease Status: Chronic Plan: Patient history of end-stage renal disease. She gets dialysis 3 times a day via peritoneal dialysis. Patient has missed several of her doses of dialysis between the last 2 days due to her illness. * Nephrology consulted-appreciate recs * Continue Rocephin 2g daily IV for SBP coverage * Calcium supplementation, per nephro * Peritoneal cell count ordered: Results pending (3) HIV (human immunodeficiency virus infection) Status: Chronic Plan: HIV medications recently adjusted. She does not know the medication. Her friend is bringing them up and she will be restarted once the information is obtained. Most recent has nondetectable viral count (4) Hypertension Status: Chronic Plan: Patient has a long-standing history of hypertension. * Holding patient's lisinopril * Continue labetalol 30 mg by mouth every 12 hours * Continue amlodipine 10 mg by mouth daily * Hydralazine IV when necessary elevated blood pressure (5) Nutrition, metabolism, and development symptoms Status: Acute Plan: Renal diet as tolerated Monitor electrolytes and replace accordingly Titrate oxygen Vitals every 4 DVT prophylaxis with heparin and SCDs CODE STATUS: Full code Disposition: Pending improvement of abdominal pain and nephrology recommendations (Killian Mckeon MD R1) Problem List: (1) Clostridium difficile colitis Status: Acute Plan: C diff positive PCR * Flagyl 500mg IV q8H * Zofran 4 mg IV every 6 hours when necessary nausea or vomiting * Protonix 20 mg by mouth daily * Tylenol 650 mg by mouth every 4 hours Pain * [place] 5/325 mg by mouth every 4 hours when necessary pain scale 1-5 * [place] 10/325 mg by mouth every 4 hours when necessary pain scale 6-10 * Morphine 1 mg IV every 3 hours when necessary breakthrough pain (2) End stage kidney disease Status: Chronic Plan: Patient history of end-stage renal disease. She gets dialysis 3 times a day via peritoneal dialysis. Patient has missed several of her doses of dialysis between the last 2 days due to her illness. * Nephrology consulted-appreciate recs * Continue Rocephin 2g daily IV for SBP coverage * Calcium supplementation, per nephro * Peritoneal cell count ordered: Results pending (3) HIV (human immunodeficiency virus infection) Status: Chronic Plan: HIV medications recently adjusted. She does not know the medication. Her friend is bringing them up and she will be restarted once the information is obtained. Most recent has nondetectable viral count (4) Hypertension Status: Chronic Plan: Patient has a long-standing history of hypertension. * Holding patient's lisinopril * Continue labetalol 30 mg by mouth every 12 hours * Continue amlodipine 10 mg by mouth daily * Hydralazine IV when necessary elevated blood pressure (5) Nutrition, metabolism, and development symptoms Status: Acute Plan: Renal diet as tolerated Monitor electrolytes and replace accordingly Titrate oxygen Vitals every 4 DVT prophylaxis with heparin and SCDs CODE STATUS: Full code Disposition: Pending improvement of abdominal pain and nephrology recommendations (Mary Alice Nicole MD) Problem Qualifiers (1) Hypertension: Qualified Code: I15.1 - Hypertension secondary to other renal disorders Killian Mckeon MD R1 Apr 25, 2016 12:08 Mary Alice Nicole MD Apr 25, 2016 14:14
[2016-04-25 14:26] LABS: PERITONEAL BASO 1 %; PERITONEAL EOS 1 %; PERITONEAL LYMPHS 2 %; PERITONEAL MONOS 3 %; PERITONEAL POLYS(SEGS) 93 %; PERITONEAL WBC 2735 /MM3 (0-10)
[2016-04-25] MEDS: MORPHINE SULFATE 4 MG/ML INJ IV PRN (15:54)
[2016-04-25] MEDS: cefTRIAXone INJ 2,000 MG in SODIUM CHLORIDE 0.9% INJ 100 ML IV SCH (21:10)
[2016-04-26] VITALS (9 sets, daily range): BP systolic 106–124; BP diastolic 66–80; PULSE 70–84; RESP 16–18; TEMP 97.2–98.5; O2SAT 93–95
[2016-04-26] MEDS: HEPARIN SODIUM - SQ 10,000 UNITS/ML VIAL SQ SCH ×3 (01:16→16:17)
[2016-04-26] MEDS: metroNIDAZOLE 500 MG INJ 100 ML IV SCH ×2 (01:16→08:34)
[2016-04-26] MEDS: MORPHINE SULFATE 4 MG/ML INJ IV PRN (01:25)
[2016-04-26] MEDS: CALCIUM CARBONATE 500 MG CHEWABLE TAB CHEW SCH ×6 (03:55→20:00)
[2016-04-26] MEDS: SODIUM CHLORIDE 0.9% FLUSH 5 ML FLUSH FLUSH SCH ×2 (08:34→22:53)
[2016-04-26] MEDS: LABETALOL HCL 300 MG TAB PO SCH ×2 (08:34→22:51)
[2016-04-26] MEDS: PANTOPRAZOLE SOD 20 MG DELAYED RELEASE TAB PO SCH (08:34)
[2016-04-26] MEDS: CALCIUM ACETATE 667 MG CAP PO SCH ×3 (08:41→16:17)
[2016-04-26 08:45] LABS: AUTOMATED NEUTROPHIL # 8.2 TH/MM3 (1.8-7.7); BASOPHIL % 0.5 % (0.0-2.0); HEMATOCRIT 36.1 % (35.0-46.0); HEMO FLAGS DIFF FINAL; LYMPH % 4.1 % (9.0-44.0); LYMPHOCYTE # 0.4 TH/MM3 (1.0-4.8); MEAN CELL VOLUME 101.3 FL (80.0-100.0); MEAN CORPUSCULAR HEMOGLOBIN 33.7 PG (27.0-34.0); MEAN CORPUSCULAR HGB CONC 33.3 % (32.0-36.0); MONO % 6.9 % (0.0-8.0); NEUT % 88.5 % (16.0-70.0); PLATELET COUNT 216 TH/MM3 (150-450); RED BLOOD COUNT 3.57 MIL/MM3 (4.00-5.30); RED CELL DISTRIBUTION WIDTH 14.5 % (11.6-17.2); WHITE BLOOD COUNT 9.3 TH/MM3 (4.0-11.0)
[2016-04-26 09:06] LABS: BICARBONATE 19.8 MEQ/L (21.0-32.0)
[2016-04-26 09:24] LABS: CALCIUM-PROTEIN CORRECTED 6.2 MG/DL (8.5-10.1)
[2016-04-26] MEDS ORDERED: PILL SPLITTER OTHER PRN (10:15)
--- NOTE | 2016-04-26 12:16 | HHI.FPPN ---
Subjective Remarks Pt seen and examined this morning. Pt still having constant abdominal, states she vomited up the norco and the morphine makes her too drowsy. Having fewer bowel movements. Otherwise, no complaints. No chest pain, SOB, leg pain. (Killian Mckeon MD R1) Objective Vitals Vital Signs Date Time Temp Pulse Resp B/P Pulse Ox O2 Delivery O2 Flow Rate FiO2 04/26/16 10:28 70 04/26/16 08:00 Room Air 04/26/16 08:00 97.2 73 16 106/66 93 04/26/16 04:00 98.0 74 18 107/72 94 04/26/16 00:00 98.5 75 16 112/74 94 04/25/16 20:51 81 04/25/16 20:00 95 Room Air 04/25/16 20:00 99.5 81 16 102/60 95 04/25/16 16:00 99.2 77 16 109/63 94 04/25/16 12:47 96 21 I/O 04/25/16 04/25/16 04/25/16 04/26/16 04/26/16 04/26/16 07:00 15:00 23:00 07:00 15:00 23:00 Intake Total 240 ml 120 ml Output Total 0 ml 1866 ml Balance 240 ml 120 ml -1866 ml Intake Oral 240 ml 120 ml Output Urine Total 0 ml Peritoneal Fluid 1866 ml # Voids 0 # Bowel Movements 2 0 (Killian Mckeon MD R1) Result Diagram: 04/26/16 0747 04/26/16 0747 Objective Remarks O. CONSTITUTIONAL/GEN: normally nourished, laying in bed LUNGS: clear A-P, respiratory effort is normal. CARDIOVASCULAR: RR without murmur or gallop. No significant edema. GI/ABD: Protuberant, tender to palpation overall, and + bowel sounds.. : no CVA tenderness NEURO: No focal deficits. SKIN: color normal, no rashes noted. HEME/LYMPH: no bruising, petechia or significant adenopathy MUSC: back is normal in appearance. Extremities are normal in appearance. PSYCH/MENTAL STATUS: Alert and oriented x 3. (Killian Mckeon MD R1) A/P Assessment and Plan 40-year-old -[place] female with past history significant for end-stage renal disease, hypertension, and HIV for over 10 years. Being admitted for diarrhea and abdominal pain, differential includes gastritis versus SBP versus electrolyte imbalance Discharge Planning Pending nephrology recs (Killian Mckeon MD R1) Attending Attestation Patient seen and examined. Case reviewed and discussed with the resident team. Agree with plan of care as discussed with me and documented in the resident note. (Mary Alice Nicole MD) Problem List: (1) Clostridium difficile colitis Status: Acute Plan: C diff positive PCR * Flagyl 500mg IV q8H * Zofran 4 mg IV every 6 hours when necessary nausea or vomiting * Protonix 20 mg by mouth daily * Tylenol 650 mg PO q4H * Dilaudid 1mg q4H pain (2) End stage kidney disease Status: Chronic Plan: Patient history of end-stage renal disease. She gets dialysis 3 times a day via peritoneal dialysis. Patient has missed several of her doses of dialysis between the last 2 days due to her illness. Peritoneal WBC 2735, RBC 163, PMN 93 Fluid culture: GNR * Nephrology consulted-appreciate recs * Continue Rocephin 2g daily IV for SBP coverage * Calcium supplementation, per nephro (3) HIV (human immunodeficiency virus infection) Status: Chronic Plan: HIV medications recently adjusted. She does not know the medication. Her friend is bringing them up and she will be restarted once the information is obtained. Most recent has nondetectable viral count (4) Hypertension Status: Chronic Plan: Patient has a long-standing history of hypertension. * Holding patient's lisinopril * Continue labetalol 30 mg by mouth every 12 hours * Continue amlodipine 10 mg by mouth daily * Hydralazine IV when necessary elevated blood pressure (5) Nutrition, metabolism, and development symptoms Status: Acute Plan: Renal diet as tolerated Monitor electrolytes and replace accordingly Titrate oxygen Vitals every 4 DVT prophylaxis with heparin and SCDs CODE STATUS: Full code (Killian Mckeon MD R1) Problem Qualifiers (1) Hypertension: Qualified Code: I15.1 - Hypertension secondary to other renal disorders Killian Mckeon MD R1 Apr 26, 2016 12:16 Mary Alice Nicole MD Apr 26, 2016 12:46
--- NOTE | 2016-04-26 12:32 | HHI.NPPN ---
Subjective History of Present Illness 40 year old female with ESRD C dif colitis gr neg peritonitis Review of Systems General Constitutional: Fatigue Gastrointestinal Gastrointestinal: Abdominal Pain Objective Data Data 04/25/16 04/26/16 19:00 07:00 Intake Total 240 ml 120 ml Output Total 0 ml Balance 240 ml 120 ml Intake Oral 240 ml 120 ml Output Urine Total 0 ml # Voids 0 # Bowel Movements 2 0 Vital Signs Date Time Temp Pulse Resp B/P Pulse Ox O2 Delivery O2 Flow Rate FiO2 04/26/16 10:28 70 04/26/16 08:00 Room Air 04/26/16 08:00 97.2 73 16 106/66 93 04/26/16 04:00 98.0 74 18 107/72 94 04/26/16 00:00 98.5 75 16 112/74 94 04/25/16 20:51 81 04/25/16 20:00 95 Room Air 04/25/16 20:00 99.5 81 16 102/60 95 04/25/16 16:00 99.2 77 16 109/63 94 04/25/16 12:47 96 21 -: 04/26/16 0747 04/26/16 0747 Microbiology 04/25/16 Gram Stain - Final, Resulted 04/25/16 Body Fluid Culture - Preliminary, Resulted Gram Negative Sergei Physical Exam General Appearance: Well Developed Neck Neck Exam: Neck Supple Pulmonary Resp Exam: Clear Bilaterally Cardiology CV Exam: Regular Gastrointestinal/Abdomen GI Exam: Distended GI Remarks tender Neurologic Neuro Exam: Alert Assessment/Plan Problem List: (1) End stage kidney disease Plan: Patient is positive for C. difficile and is on metronidazole, complex situation now gr Neg in PD fluid need Ceftazidime IP FOLLOW c/s consider ID Consult (2) Abdominal pain Plan: Likely due to C. difficile colitis Peritonitis gram neg (3) Clostridium difficile colitis Plan: Positive PCR (4) H/O parathyroidectomy Plan: Need to give her calcium supplement and continue with phosphorus binders with Victor Manuel Farrar MD Apr 26, 2016 12:31
[2016-04-26] MEDS ORDERED: CALCIUM GLUCONATE INJ 1 GM in DEXTROSE 5% IN WATER 100ML INJ 100 ML IV ONE ×2 (14:00)
--- NOTE | 2016-04-26 15:14 | PD.CONS ---
History of Present Illness Service Infectious disease Consult Requested By Dr Bethel Castelan Reason for Consult Evaluate patient with peritonitis, C. difficile colitis, and HIV Primary Care Physician Jarod Tian MD Diagnoses: History of Present Illness Patient seen and examined. Records reviewed. Patient is a 40-year-old female with end-stage renal disease, on peritoneal dialysis, presented to the hospital complaining of abdominal pain. She also started having some loose stool but she would only go 1-2 times a day. Her pain was worsening so she presented to the hospital for further evaluation and management. Patient states that the diarrhea has worsened since she's been in the hospital. She has some subjective fevers. Patient has been on peritoneal dialysis for the last 10 years. However she has been doing it manually, and does it at least 4 exchanges per day. She has no prior history of PD related peritonitis. Patient has had low-grade fevers. She has not had any bowel movement today, but had to yesterday. She's complaining of significant abdominal pain. Denies any nausea or vomiting. PD fluid analysis shows evidence of peritonitis, and culture is growing gram-negative sergei. Stool for C. difficile also came back positive. Her WBC is normal. Blood cultures are negative. Patient has known HIV, and follows up with Dr. Ojeda. She does not know her exact CD4 count, but she was told it was good. She is on a new regimen of anti-retroviral treatment in the last month. CT of the abdomen and pelvis showed fluid-filled bowel loops with no obstruction, there is no mention of any wall thickening, and there is presence of ascites. Infectious disease consultation has been requested to evaluate the patient. Review of Systems Constitutional: COMPLAINS OF: Fever, Chills Eyes: DENIES: Eye pain Ears, nose, mouth, throat: DENIES: Nasal discharge, Oral lesions, Throat pain, Ear Pain, Sinus Pain, Toothache Respiratory: DENIES: Cough, Shortness of breath Cardiovascular: DENIES: Chest pain, Palpitations Gastrointestinal: COMPLAINS OF: Abdominal pain, Diarrhea, DENIES: Nausea, Vomiting, Difficulty Swallowing Musculoskeletal: DENIES: Joint pain, Muscle aches, Joint Swelling Integumentary: DENIES: Rash Hematologic/lymphatic: DENIES: Lymphadenopathy Immunologic/allergic: DENIES: Urticaria Neurologic: DENIES: Headache Psychiatric: DENIES: Anxiety, Hallucinations Past Family Social History Allergies: Coded Allergies: Iron Dextran (Verified Allergy, Severe, IRON INJECTIONS, 04/24/16) PT STATES THEY HAVE NOW CHANGED BRANDS OF IRON & SHE IS ABLE TO TAKE THE NEW BRAND OF IRON Past Medical History ESRD HIV stable HTN Past Surgical History PD cath placement Active Ordered Medications Tylenol Norvasc PhosLo Tums Fortaz IP Rocephin Flagyl Heparin Hydralazine Dilaudid Labetalol Zofran Protonix Social History Lives with Mom and daughter Denies smoking denies drinking Smokes marijuana Physical Exam Vital Signs Vital Signs Date Time Temp Pulse Resp B/P Pulse Ox O2 Delivery O2 Flow Rate FiO2 04/26/16 10:28 70 04/26/16 08:00 Room Air 04/26/16 08:00 97.2 73 16 106/66 93 04/26/16 04:00 98.0 74 18 107/72 94 04/26/16 00:00 98.5 75 16 112/74 94 04/25/16 20:51 81 04/25/16 20:00 95 Room Air 04/25/16 20:00 99.5 81 16 102/60 95 04/25/16 16:00 99.2 77 16 109/63 94 Physical Exam GENERAL: This is a well-nourished, well-developed female, awake and alert, in no apparent distress. SKIN: Warm and dry. No rashes, ecchymoses or embolic lesions. HEAD: Atraumatic. Normocephalic. No temporal or scalp tenderness. EYES: [place] conjunctivae. Pupils equal round and reactive. Extraocular motions intact. No scleral icterus. No injection or drainage. ENT: Nose without bleeding, or purulent drainage. Moist oral mucosa. Throat without erythema, or exudate. Uvula midline. Airway patent. NECK: Trachea midline. No JVD or lymphadenopathy. Supple, nontender, no meningeal signs. CARDIOVASCULAR: Regular rate and rhythm without murmurs, gallops, or rubs. RESPIRATORY: Clear to auscultation. Breath sounds equal bilaterally. No wheezes , rales, or rhonchi. GASTROINTESTINAL: Abdomen distended, hypoactive bowel sounds, with diffuse tenderness, has some guarding. PD cath site with no evidence of infection MUSCULOSKELETAL: Extremities without clubbing, cyanosis, or edema. No joint tenderness, or effusion. No calf tenderness. Negative Homans sign bilaterally. NEUROLOGICAL: Awake and alert. Cranial nerves II through XII intact. Motor and sensory grossly within normal limits. Five out of 5 muscle strength in all muscle groups. Normal speech. PSYCH: Normal affect, calm and cooperative Laboratory Laboratory Tests Test 04/26/16 07:47 White Blood Count 9.3 Red Blood Count 3.57 Hemoglobin 12.0 Hematocrit 36.1 Mean Corpuscular Volume 101.3 Mean Corpuscular Hemoglobin 33.7 Mean Corpuscular Hemoglobin 33.3 Concent Red Cell Distribution Width 14.5 Platelet Count 216 Mean Platelet Volume 9.9 Neutrophils (%) (Auto) 88.5 Lymphocytes (%) (Auto) 4.1 Monocytes (%) (Auto) 6.9 Eosinophils (%) (Auto) 0.0 Basophils (%) (Auto) 0.5 Neutrophils # (Auto) 8.2 Lymphocytes # (Auto) 0.4 Monocytes # (Auto) 0.6 Eosinophils # (Auto) 0.0 Basophils # (Auto) 0.0 CBC Comment DIFF FINAL Differential Comment Sodium Level 131 Potassium Level 4.0 Chloride Level 91 Carbon Dioxide Level 19.8 Anion Gap 20 Blood Urea Nitrogen 93 Creatinine 18.74 Estimat Glomerular Filtration 2 Rate Random Glucose 105 Calcium Level 6.4 Protein Corrected Calcium 6.2 Total Protein 7.7 Date/Time Procedure Status Source Growth 04/25/16 12:45 Gram Stain - Final Resulted Fluid Peritoneal Fluid 04/25/16 12:45 Body Fluid Culture - Preliminary Resulted Gram Negative Sergei 04/24/16 16:10 Cryptosporidium Exam - Final Complete Stool Stool NEGATIVE - NO CRYPTOSPORIDIUM ANTIGEN... 04/24/16 16:10 Giardia Antigen (JAELYN) - Final Complete Stool Stool NEGATIVE - NO GIARDIA ANTIGEN DETECTE... 04/24/16 09:55 Aerobic Blood Culture - Preliminary Resulted Blood Peripheral NO GROWTH IN 2 DAYS 04/24/16 09:55 Anaerobic Blood Culture - Preliminary Resulted Blood Peripheral NO GROWTH IN 2 DAYS Result Diagram: 04/26/16 0747 04/26/16 0747 Imaging RADIOLOGY STUDIES/FILMS REVIEWED Abdomen/Pelvis CT 04/24/16 0000 Signed Impressions: Service Date/Time: Sunday, April 24, 2016 15:39 - CONCLUSION: 1. Multiple fluid-filled bowel loops. No obstruction. 2. Large amount of abdominal ascites. 3. Atrophic bilateral kidneys with numerous calcifications and cysts. Brandon Romero MD Assessment and Plan Assessment and Plan IMPRESSION Peritonitis with GNR, PD related C difficile colitis, seems mild HIV, on HAART ESRD on PD RECOMMENDATION Give Flagyl po for C diff colitis Continue IP Fortaz Stop other systemic Abx Follow C/S and adjust Abx if needed Get list of HAART and restart in hospital Monitor progress I will follow Thank you for this consultation Discussed Condition With Explained plan to the patient Avani Blackwell MD Apr 26, 2016 15:14
[2016-04-26] MEDS: LACTOBACILLUS ACIDOPHILUS TAB PO SCH (16:17)
[2016-04-26] MEDS: metroNIDAZOLE 500 MG TAB PO SCH ×2 (16:17→22:51)
[2016-04-26] MEDS: HYDROmorphone HCL 2 MG TAB PO PRN ×2 (16:22→23:00)
[2016-04-27] VITALS (9 sets, daily range): BP systolic 100–134; BP diastolic 67–94; PULSE 76–80; RESP 16–20; TEMP 97.3–98.2; O2SAT 93–96
[2016-04-27] MEDS: HEPARIN SODIUM - SQ 10,000 UNITS/ML VIAL SQ SCH ×4 (02:33→23:49)
[2016-04-27] MEDS: CALCIUM CARBONATE 500 MG CHEWABLE TAB CHEW SCH ×8 (03:31→23:50)
[2016-04-27] MEDS: HYDROmorphone HCL 2 MG TAB PO PRN ×4 (05:04→23:49)
[2016-04-27] MEDS: metroNIDAZOLE 500 MG TAB PO SCH ×3 (05:04→21:38)
[2016-04-27 07:37] LABS: BASOPHIL % 0.3 % (0.0-2.0); HEMO FLAGS DIFF FINAL; LYMPHOCYTE # 0.5 TH/MM3 (1.0-4.8); MEAN CELL VOLUME 101.3 FL (80.0-100.0); MEAN CORPUSCULAR HEMOGLOBIN 33.9 PG (27.0-34.0); MEAN CORPUSCULAR HGB CONC 33.5 % (32.0-36.0); MONO % 10.9 % (0.0-8.0); NEUT % 80.8 % (16.0-70.0); PLATELET COUNT 214 TH/MM3 (150-450); RED BLOOD COUNT 3.45 MIL/MM3 (4.00-5.30); RED CELL DISTRIBUTION WIDTH 14.5 % (11.6-17.2); WHITE BLOOD COUNT 6.2 TH/MM3 (4.0-11.0)
[2016-04-27 08:14] LABS: BICARBONATE 24.6 MEQ/L (21.0-32.0); POTASSIUM 3.2 MEQ/L (3.5-5.1)
[2016-04-27 08:50] LABS: CALCIUM-PROTEIN CORRECTED 6.2 MG/DL (8.5-10.1)
[2016-04-27] MEDS: CALCIUM ACETATE 667 MG CAP PO SCH ×3 (09:00→17:19)
--- NOTE | 2016-04-27 09:29 | HHI.FPPN ---
Subjective Remarks Patient seen and examined this morning. Afebrile vital signs stable. Patient is in distress due to abdominal pain. She is due for her next dose of Dilaudid. Have agreed to slightly increase the Dilaudid dose in hopes to help control her pain. Her by mouth medications were recently stopped due to nausea and vomiting. We'll consider restarting them with improvement of her nausea and vomiting. Patient says that her HIV medications were brought to the hospital by a friend, spoke with the nurse she is unaware of this but will work to ensure that patient gets her HIV medications. Endorses: Abdominal pain Denies: Fever, chills, nausea, vomiting, shortness of breath, chest pain, headache, calf pain (Rj Lovelace MD R2) Objective Vitals Vital Signs Date Time Temp Pulse Resp B/P Pulse Ox O2 Delivery O2 Flow Rate FiO2 04/27/16 08:00 98.1 79 20 126/76 95 04/27/16 04:00 97.3 78 16 108/69 93 04/27/16 00:00 97.4 76 16 115/72 96 04/26/16 21:00 Room Air 04/26/16 20:18 84 04/26/16 20:00 98.5 80 18 122/80 95 04/26/16 18:22 95 21 04/26/16 16:00 98.2 80 16 123/78 95 04/26/16 14:00 97.9 81 18 124/74 95 04/26/16 10:28 70 I/O 04/26/16 04/26/16 04/26/16 04/27/16 04/27/16 04/27/16 07:00 15:00 23:00 07:00 15:00 23:00 Intake Total 120 ml 580 ml 75 ml 120 ml Output Total 0 ml 1866 ml 0 ml 221 ml Balance 120 ml -1286 ml 75 ml 120 ml -221 ml Intake Oral 120 ml 480 ml 75 ml 120 ml IV Total 100 ml Output Urine Total 0 ml 0 ml 0 ml Peritoneal Fluid 1866 ml 221 ml # Voids 0 # Bowel Movements 0 0 0 0 (Rj Lovelace MD R2) Result Diagram: 04/27/16 0630 04/27/16 0630 Imaging Last Impressions Abdomen/Pelvis CT 04/24/16 0000 Signed Impressions: Service Date/Time: Sunday, April 24, 2016 15:39 - CONCLUSION: 1. Multiple fluid-filled bowel loops. No obstruction. 2. Large amount of abdominal ascites. 3. Atrophic bilateral kidneys with numerous calcifications and cysts. Brandon Romero MD Objective Remarks O. CONSTITUTIONAL/GEN: normally nourished, laying in bed LUNGS: clear A-P, respiratory effort is normal. CARDIOVASCULAR: RR without murmur or gallop. No significant edema. GI/ABD: Protuberant, tender to palpation overall, and + bowel sounds.. : no CVA tenderness NEURO: No focal deficits. SKIN: color normal, no rashes noted. HEME/LYMPH: no bruising, petechia or significant adenopathy MUSC: back is normal in appearance. Extremities are normal in appearance. PSYCH/MENTAL STATUS: Alert and oriented x 3. Medications and IVs Current Medications Medications (Trade) Dose Ordered Sig/Chinmay Route Start Time Stop Time Status Last Admin (NS Flush) 2 ml UNSCH PRN FLUSH 04/24/16 16:45 (NS Flush) 2 ml BID FLUSH 04/24/16 21:00 04/26/16 22:53 (Tylenol) 650 mg Q4H PRN PO 04/24/16 16:45 (Zofran Inj) 4 mg Q6H PRN IVP 04/24/16 16:45 (Heparin Inj) 5,000 units Q8H SQ 04/24/16 17:00 04/27/16 02:33 (Narcan Inj) 0.4 mg UNSCH PRN IV 04/24/16 16:45 (Protonix) 20 mg DAILY PO 04/24/16 18:30 04/26/16 08:34 (Trandate) 300 mg Q12HR PO 04/24/16 21:00 04/26/16 22:51 (Norvasc) 10 mg DAILY PO 04/25/16 09:00 04/26/16 08:34 (Apresoline Inj) 10 mg Q6H PRN IV 04/24/16 18:30 (NS Flush) 10 ml UNSCH PRN IVF 04/25/16 09:15 (Phoslo) 2,668 mg TID PO 04/25/16 13:00 (Tums Chew) 500 mg Q4HR CHEW 04/25/16 12:00 (Dilaudid) 1 mg Q4H PRN PO 04/26/16 10:00 04/27/16 05:04 (Pill Splitter) 1 ea UNSCH PRN OTHER 04/26/16 10:15 (Fortaz Inj) 1,000 mg DAILY IP 04/26/16 13:30 04/26/16 13:30 (Flagyl) 500 mg Q8HR PO 04/26/16 15:15 04/27/16 05:04 (Lactinex) 1 tab TID PO 04/26/16 18:00 04/26/16 16:17 (Rj Lovelace MD R2) A/P Assessment and Plan 40-year-old -Citizen Of [place] female with past history significant for end-stage renal disease, hypertension, and HIV for over 10 years. Being admitted for diarrhea and abdominal pain, differential includes gastritis versus SBP versus electrolyte imbalance Discharge Planning Pending improvement of clinical condition. (Rj Lovelace MD R2) Attending Attestation Patient seen and examined. Case reviewed and discussed with the resident team. Agree with plan of care as discussed with me and documented in the resident note. (Mary Alice Nicole MD) Problem List: (1) Peritonitis Status: Acute Plan: Patient found to have peritonitis with Enterobacter cloacae sensitive to ceftazidime. * Infectious disease consulted recommendations appreciated * Continue ceftazidime 1 g daily IP (04/26- ) (2) Clostridium difficile colitis Status: Acute Plan: C diff positive PCR * Flagyl 500mg IV q8H * Zofran 4 mg IV every 6 hours when necessary nausea or vomiting * Protonix 20 mg by mouth daily * Tylenol 650 mg PO q4H * Dilaudid 2mg q4H pain (3) End stage kidney disease Status: Chronic Plan: Patient history of end-stage renal disease. Currently receiving dialysis here in the hospital per nephrology recommendations Peritoneal WBC 2735, RBC 163, PMN 93 Fluid culture: Enterobacter cloacae, sensitive to ceftazidime * Nephrology consulted-appreciate recs * See peritonitis plan above * Calcium supplementation, per nephro (4) HIV (human immunodeficiency virus infection) Status: Chronic Plan: HIV medications recently adjusted. She does not know the medication. Her friend is bringing them up and she will be restarted once the information is obtained. Most recent has nondetectable viral count. * Discussed with nurse will work to obtain accurate HAART medications and that she receives them appropriately during this hospitalization (5) Hypertension Status: Chronic Plan: Patient has a long-standing history of hypertension. * Holding patient's lisinopril * Continue labetalol 30 mg by mouth every 12 hours * Continue amlodipine 10 mg by mouth daily * Hydralazine IV when necessary elevated blood pressure (6) Nutrition, metabolism, and development symptoms Status: Acute Plan: Renal diet as tolerated Monitor electrolytes and replace accordingly Titrate oxygen Vitals every 4 DVT prophylaxis with heparin and SCDs CODE STATUS: Full code (Rj Lovelace MD R2) Problem Qualifiers (1) Hypertension: Qualified Code: I15.1 - Hypertension secondary to other renal disorders Rj Lovelace MD R2 Apr 27, 2016 09:29 Mary Alice Nicole MD Apr 27, 2016 13:05
[2016-04-27] MEDS: LACTOBACILLUS ACIDOPHILUS TAB PO SCH ×3 (09:59→17:19)
[2016-04-27] MEDS: SODIUM CHLORIDE 0.9% FLUSH 5 ML FLUSH FLUSH SCH ×2 (09:59→19:44)
[2016-04-27] MEDS: PANTOPRAZOLE SOD 20 MG DELAYED RELEASE TAB PO SCH (10:00)
[2016-04-27] MEDS: LABETALOL HCL 300 MG TAB PO SCH ×2 (10:00→21:38)
[2016-04-27] MEDS: HYDROmorphone HCL PF 1 MG/ML VIAL IV PUSH PRN ×2 (13:10→19:44)
--- NOTE | 2016-04-27 14:35 | HHI.NPPN ---
Subjective History of Present Illness 40 year old female with ESRD C dif colitis gr neg peritonitis Review of Systems General Constitutional: Fatigue Gastrointestinal Gastrointestinal: Abdominal Pain Objective Data Data 04/26/16 04/27/16 19:00 07:00 Intake Total 580 ml 195 ml Output Total 1866 ml 0 ml Balance -1286 ml 195 ml Intake Oral 480 ml 195 ml IV Total 100 ml Output Urine Total 0 ml 0 ml Peritoneal Fluid 1866 ml # Voids 0 # Bowel Movements 0 0 Vital Signs Date Time Temp Pulse Resp B/P Pulse Ox O2 Delivery O2 Flow Rate FiO2 04/27/16 12:00 98.1 78 16 134/94 94 04/27/16 11:24 18 04/27/16 09:05 96 21 04/27/16 08:00 98.1 79 20 126/76 95 04/27/16 04:00 97.3 78 16 108/69 93 04/27/16 00:00 97.4 76 16 115/72 96 04/26/16 21:00 Room Air 04/26/16 20:18 84 04/26/16 20:00 98.5 80 18 122/80 95 04/26/16 18:22 95 21 04/26/16 16:00 98.2 80 16 123/78 95 -: 04/27/16 0630 04/27/16 0630 Physical Exam General Appearance: Well Developed Neck Neck Exam: Neck Supple Pulmonary Resp Exam: Clear Bilaterally Cardiology CV Exam: Regular Gastrointestinal/Abdomen GI Exam: Distended GI Remarks tender Neurologic Neuro Exam: Alert Assessment/Plan Problem List: (1) End stage kidney disease Plan: Patient is positive for C. difficile and is on metronidazole, gr Neg in PD fluid On Ceftazidime IP Enterobacter appreciate ID Consult replace K/Ca (2) Abdominal pain Plan: Likely due to C. difficile colitis Peritonitis gram neg (3) Clostridium difficile colitis Plan: Positive PCR (4) H/O parathyroidectomy Plan: Need to give her calcium supplement and continue with phosphorus binders with Victor Manuel Farrar MD Apr 27, 2016 14:34
[2016-04-27] MEDS: POTASSIUM CHLORIDE 20 MEQ CONTROLLED RELEASE TAB PO SCH ×2 (15:00→21:38)
[2016-04-27] MEDS ORDERED: CALCIUM GLUCONATE INJ 2 GM in DEXTROSE 5% IN WATER 100ML INJ 100 ML IV ONE ×2 (15:00)
[2016-04-27] MEDS: HEPARIN SODIUM - IV 10,000 UNITS/10 ML VIAL XX PRN (15:49)
[2016-04-28] VITALS (9 sets, daily range): BP systolic 98–113; BP diastolic 64–74; PULSE 74–95; RESP 12–20; TEMP 97.7–98.9; O2SAT 90–99
[2016-04-28] MEDS: HYDROmorphone HCL PF 1 MG/ML VIAL IV PUSH PRN ×2 (03:51→22:21)
[2016-04-28] MEDS: CALCIUM CARBONATE 500 MG CHEWABLE TAB CHEW SCH ×6 (03:54→23:40)
[2016-04-28] MEDS: metroNIDAZOLE 500 MG TAB PO SCH ×3 (05:56→22:09)
[2016-04-28] MEDS: HYDROmorphone HCL 2 MG TAB PO PRN (05:56)
--- NOTE | 2016-04-28 08:34 | HHI.FPPN ---
Subjective Remarks No acute events overnight. Vital signs unremarkable. This morning patient reports that she continues to have severe abdominal pain has not changed since admission. She is also complaining of SOB that started yesterday evening and has progressed until this morning. Breathing is improved with sitting up. Continues to have a limited appetite due to pain. Denies chest pain or lower extremity edema. Has not had a bowel movement. Patient reports obtaining HAART medications however they are dated for February. Reports her HIV doctor is Dr. Sukumar Ojeda who she sees every 6 months. (Ariela Regan MD R2) Objective Vitals Vital Signs Date Time Temp Pulse Resp B/P Pulse Ox O2 Delivery O2 Flow Rate FiO2 04/28/16 04:00 98.0 80 20 104/68 94 04/28/16 00:00 98.6 80 20 109/74 96 04/27/16 20:00 98.0 80 20 103/67 93 04/27/16 19:56 80 04/27/16 19:30 Room Air 04/27/16 18:49 20 04/27/16 16:00 98.2 79 16 100/70 94 04/27/16 15:05 79 04/27/16 14:10 18 04/27/16 12:00 98.1 78 16 134/94 94 04/27/16 09:05 96 21 I/O 04/27/16 04/27/16 04/27/16 04/28/16 04/28/16 04/28/16 07:00 15:00 23:00 07:00 15:00 23:00 Intake Total 120 ml 10 ml 220 ml 50 ml Output Total 0 ml 221 ml 324 ml Balance 120 ml -211 ml 220 ml 50 ml -324 ml Intake Oral 120 ml 10 ml 120 ml 50 ml IV Total 100 ml Output Urine Total 0 ml 0 ml Peritoneal Fluid 221 ml 324 ml # Voids 0 # Bowel Movements 0 0 0 (Ariela Regan MD R2) Result Diagram: 04/27/1662904/27/16629 Objective Remarks GEN: Thin female in obvious distress. Sitting up in bed. CV: Regular rate and rhythm without obvious murmurs LUNGS: Clear to auscultation bilaterally with good air movement bilaterally. GI: Protuberant, tender to palpation diffusely. Voluntary guarding. EXT: No edema. No calf tenderness. NEURO/PSYCH: Awake, alert. Appropriate insight and judgment. Normal speech ( Ariela Regan MD R2) A/P Assessment and Plan 40-year-old -[place] female with PMH of ESRD, HTN, HIV. Was admitted for C. difficile and peritonitis. Discharge Planning Timeline unknown at this time. Pending clinical improvement. sdw Dr. Gaines (Ariela Regan MD R2) Attending Attestation Patient seen and examined. Case reviewed and discussed with the resident team. Agree with plan of care as discussed with me and documented in the resident note. (Mary Alice Nicole MD) Problem List: (1) SBP (spontaneous bacterial peritonitis) Status: Acute Plan: Found to have SBP with Enterobacter cloacae sensitive to ceftazidime. Despite treatment patient continues to have severe abdominal pain. Pt also found to have C diff, positive PCR. -Leukocytosis resolved on 04/26, repeat CBC today -Peritoneal fluids diagnostic of SBP with elevated absolute PMN >250 and positive culture -Repeat CT abdomen 04/28 Infectious disease consulted recommendations appreciated * Peritonitis related to peritoneal dialysis * Continue Flagyl by mouth for C. difficile colitis (04/25-, will discuss/ consider need for PO vancomycin due to lack of improvement * Continue ceftazidime 1 g daily IP (04/26- ) Imaging: * CT abdomen/pelvis 04/24: Multiple fluid-filled bowel loops. No obstruction. Large amount of abdominal ascites. Meds: * Flagyl 500mg PO q8H (04/25- * ceftazidime 1 g daily IP (04/26- * Switched Protonix due Zantac 75mg daily due to C.diff * Dilaudid 2mg PO q4H pain, IV 1mg for breakthrough (2) Clostridium difficile colitis Status: Acute Plan: -See above (peritonitis) (3) SOB (shortness of breath) Status: Acute Plan: New-onset SOB that started on the evening of 04/27. Patient denies any cardiac history. Patient high risk for pneumonia. Nurse reports desaturations when off O2 -Incentive spirometry and acapella -Titrate O2 -CXR ordered -If x-rays clear, consider echo (4) End stage kidney disease Status: Chronic Plan: Patient history of end-stage renal disease. Currently receiving peritoneal dialysis daily Nephrology consulted: Appreciate recommendations * Continue to replace potassium, and calcium * Continue with phosphorus binders (5) HIV (human immunodeficiency virus infection) Status: Chronic Plan: HIV medications recently adjusted, medications that she has brought in are dated from February 2016. HIV physician is Dr Sukumar Ojeda ([phone]) . Will attempt to contact office to get most up-to-date medications. -continue with current home HIV medications at this time. (6) Hypertension Status: Chronic Plan: Patient has a long-standing history of hypertension. * Holding patient's lisinopril * Continue labetalol 30 mg by mouth every 12 hours * Continue amlodipine 10 mg by mouth daily * Hydralazine IV when necessary elevated blood pressure (7) Nutrition, metabolism, and development symptoms Status: Acute Plan: Diet: Renal diet as tolerated Fluids: None Electrolytes: KCl 20 daily, Tums, PhosLo DVT PPX: Heparin and SCDs GI PPX: Pepcid (Ariela Regan MD R2) Problem Qualifiers (1) Hypertension: Qualified Code: I15.1 - Hypertension secondary to other renal disorders Ariela Regan MD R2 Apr 28, 2016 08:34 Mary Alice Nicole MD Apr 28, 2016 15:43
--- NOTE | 2016-04-28 08:40 | RADRPT ---
EXAM DATE/TIME: 04/28/2016 08:13 [facility] COMPARISON: No previous studies available for comparison. INDICATIONS : Shortness of breath. MEDICAL HISTORY : Renal failure, chronic. Gastroesophageal reflux disease. Hypertension. SURGICAL HISTORY : Hysterectomy. ENCOUNTER: Subsequent ACUITY: 4 - 6 days PAIN SCORE: 0/10 LOCATION: Bilateral chest FINDINGS: Single AP view of the chest. The lungs are clear. Cardiomediastinal silhouette within normal limits. No evidence of pleural effusion or pneumothorax. CONCLUSION: No acute cardiopulmonary disease identified. Sterling Krishnamurthy MD on April 28, 2016 at 8:39 Board Certified Radiologist. This report was verified electronically.
[2016-04-28] MEDS: LACTOBACILLUS ACIDOPHILUS TAB PO SCH ×3 (09:00→16:48)
[2016-04-28] MEDS: CALCIUM ACETATE 667 MG CAP PO SCH ×3 (09:00→16:48)
[2016-04-28] MEDS: LABETALOL HCL 300 MG TAB PO SCH ×2 (09:00→22:10)
[2016-04-28] MEDS: FAMOTIDINE 20 MG TAB PO SCH (09:00)
[2016-04-28 10:08] LABS: AUTOMATED NEUTROPHIL # 5.8 TH/MM3 (1.8-7.7); BASOPHIL % 0.3 % (0.0-2.0); HEMATOCRIT 35.6 % (35.0-46.0); HEMO FLAGS DIFF FINAL; LYMPHOCYTE # 0.4 TH/MM3 (1.0-4.8); MEAN CELL VOLUME 101.3 FL (80.0-100.0); MEAN CORPUSCULAR HEMOGLOBIN 33.6 PG (27.0-34.0); MEAN CORPUSCULAR HGB CONC 33.2 % (32.0-36.0); MONO % 11.7 % (0.0-8.0); PLATELET COUNT 228 TH/MM3 (150-450); RED BLOOD COUNT 3.52 MIL/MM3 (4.00-5.30); RED CELL DISTRIBUTION WIDTH 14.7 % (11.6-17.2)
[2016-04-28] MEDS: POTASSIUM CHLORIDE 20 MEQ CONTROLLED RELEASE TAB PO SCH ×2 (10:36→22:11)
[2016-04-28] MEDS: SODIUM CHLORIDE 0.9% FLUSH 5 ML FLUSH FLUSH SCH ×2 (10:36→22:13)
[2016-04-28] MEDS: HEPARIN SODIUM - SQ 10,000 UNITS/ML VIAL SQ SCH ×2 (10:37→16:48)
[2016-04-28 10:41] LABS: BICARBONATE 26.3 MEQ/L (21.0-32.0); MAGNESIUM 1.8 MG/DL (1.5-2.5); POTASSIUM 3.6 MEQ/L (3.5-5.1)
[2016-04-28 10:59] LABS: CALCIUM-PROTEIN CORRECTED 6.5 MG/DL (8.5-10.1)
[2016-04-28] MEDS: HEPARIN SODIUM - IV 10,000 UNITS/10 ML VIAL XX PRN (11:04)
--- NOTE | 2016-04-28 16:42 | HHI.NPPN ---
Subjective History of Present Illness 40 year old female with ESRD C dif colitis gr neg peritonitis Review of Systems General Constitutional: Fatigue Gastrointestinal Gastrointestinal: Abdominal Pain Objective Data Data 04/27/16 04/28/16 19:00 07:00 Intake Total 110 ml 170 ml Output Total 221 ml Balance -111 ml 170 ml Intake Oral 10 ml 170 ml IV Total 100 ml Output Urine Total 0 ml Peritoneal Fluid 221 ml # Voids 0 # Bowel Movements 0 0 Vital Signs Date Time Temp Pulse Resp B/P Pulse Ox O2 Delivery O2 Flow Rate FiO2 04/28/16 16:17 95 Nasal Cannula 2.00 04/28/16 13:15 91 Room Air 04/28/16 13:10 74 04/28/16 12:00 98.2 87 12 101/64 92 04/28/16 08:00 97.9 78 16 98/69 91 04/28/16 04:00 98.0 80 20 104/68 94 04/28/16 00:00 98.6 80 20 109/74 96 04/27/16 20:00 98.0 80 20 103/67 93 04/27/16 19:56 80 04/27/16 19:30 Room Air 04/27/16 18:49 20 -: 04/28/16 0835 04/28/16 0900 Physical Exam General Appearance: Well Developed Neck Neck Exam: Neck Supple Pulmonary Resp Exam: Clear Bilaterally Cardiology CV Exam: Regular Gastrointestinal/Abdomen GI Exam: Distended GI Remarks tender Neurologic Neuro Exam: Alert Assessment/Plan Problem List: (1) End stage kidney disease Plan: Patient is positive for C. difficile and is on metronidazole, gr Neg in PD fluid On Ceftazidime IP Enterobacter Ca low replace (2) Abdominal pain Plan: Likely due to C. difficile colitis Peritonitis gram neg (3) Clostridium difficile colitis Plan: Positive PCR (4) H/O parathyroidectomy Plan: on calcium supplement and continue with phosphorus binders with Victor Manuel Farrar MD Apr 28, 2016 16:42
[2016-04-28] MEDS ORDERED: CALCIUM GLUCONATE INJ 2 GM in DEXTROSE 5% IN WATER 100ML INJ 100 ML IV ONE ×2 (17:00)
[2016-04-28] MEDS: ATORVASTATIN 10 MG TAB PO SCH (22:11)
[2016-04-28] MEDS: DOLUTEGRAVIR SODIUM 50 MG TAB PO SCH (22:11)
[2016-04-28] MEDS: RILPIVIRINE 25 MG TAB PO SCH (22:12)
[2016-04-29] VITALS (10 sets, daily range): BP systolic 97–125; BP diastolic 64–78; PULSE 79–107; RESP 17–20; TEMP 97–99; O2SAT 91–99
[2016-04-29] MEDS: HEPARIN SODIUM - SQ 10,000 UNITS/ML VIAL SQ SCH ×3 (00:08→17:51)
[2016-04-29] MEDS: HYDROmorphone HCL 2 MG TAB PO PRN ×4 (00:09→17:51)
[2016-04-29] MEDS: HYDROmorphone HCL PF 1 MG/ML VIAL IV PUSH PRN ×3 (03:52→20:58)
[2016-04-29] MEDS: CALCIUM CARBONATE 500 MG CHEWABLE TAB CHEW SCH ×5 (03:55→20:56)
[2016-04-29] MEDS: metroNIDAZOLE 500 MG TAB PO SCH ×3 (05:40→20:57)
--- NOTE | 2016-04-29 08:04 | RADRPT ---
EXAM DATE/TIME: 04/29/2016 07:48 [facility] COMPARISON: CT ABDOMEN & PELVIS W/O CONTRAST, April 24, 2016, 15:39. INDICATIONS: Diffuse severe abdominal pain for 1 week ORAL CONTRAST: No oral contrast ingested. RADIATION DOSE: 4.57 CTDIvol (mGy) MEDICAL HISTORY: Hypertension. Renal failure, acute. Gastroesophageal reflux disease. SURGICAL HISTORY: Hysterectomy. section. ENCOUNTER: Initial ACUITY: 1 week PAIN SCALE: 10/10 LOCATION: Diffuse abdomen TECHNIQUE: Volumetric scanning of the abdomen and pelvis was performed. Using automated exposure control and ad justment of the mA and/or kV according to patient size, radiation dose was kept as low as reasonably achievable to obtain optimal diagnostic quality images. FINDINGS: There are new parenchymal changes present in the left lung base nonspecific. Fluid is seen in the ab domen. There is no free air. Peritoneal dialysis catheter is in good position. Free fluid identifi ed in the pelvis. Retroperitoneum is unremarkable. Extensive vascular calcifications are noted. Bones are osteoporotic consistent with history of renal failure. CONCLUSION: I do not see an etiology for the patient's diffuse abdominal pain. Fluid is present in the abdomen w ith a peritoneal dialysis catheter. Bert Mejia MD FACR on April 29, 2016 at 7:55 Board Certified Radiologist. This report was verified electronically.
[2016-04-29] MEDS: FAMOTIDINE 20 MG TAB PO SCH (08:47)
[2016-04-29] MEDS: LACTOBACILLUS ACIDOPHILUS TAB PO SCH ×3 (08:47→17:51)
[2016-04-29] MEDS: POTASSIUM CHLORIDE 20 MEQ CONTROLLED RELEASE TAB PO SCH ×2 (08:48→20:56)
[2016-04-29] MEDS: SODIUM CHLORIDE 0.9% FLUSH 5 ML FLUSH FLUSH SCH ×2 (08:48→20:57)
[2016-04-29] MEDS: LABETALOL HCL 300 MG TAB PO SCH ×2 (08:48→20:57)
[2016-04-29] MEDS: CALCIUM ACETATE 667 MG CAP PO SCH ×3 (08:53→17:51)
[2016-04-29 09:20] LABS: BICARBONATE 25.7 MEQ/L (21.0-32.0); POTASSIUM 3.6 MEQ/L (3.5-5.1)
[2016-04-29] MEDS ORDERED: RILP25 PO (11:29)
[2016-04-29] MEDS ORDERED: DOLU1TAB PO (11:29)
[2016-04-29] MEDS ORDERED: LAMI150 PO (11:29)
--- NOTE | 2016-04-29 13:10 | HHI.NPPN ---
Subjective History of Present Illness 40 year old female with ESRD C dif colitis gr neg peritonitis Review of Systems General Constitutional: Fatigue Gastrointestinal Gastrointestinal: Abdominal Pain Objective Data Data 04/28/16 04/29/16 19:00 07:00 Intake Total 50 ml 240 ml Output Total 324 ml Balance -274 ml 240 ml Intake Oral 50 ml 240 ml Peritoneal Fluid 324 ml # Voids 0 # Bowel Movements 0 0 Vital Signs Date Time Temp Pulse Resp B/P Pulse Ox O2 Delivery O2 Flow Rate FiO2 04/29/16 12:00 98.2 92 20 110/68 92 04/29/16 10:38 99 Nasal Cannula 2.00 04/29/16 09:02 Nasal Cannula 3.00 04/29/16 09:02 96 04/29/16 08:00 97.5 79 20 97/64 97 04/29/16 04:00 97.0 82 20 119/78 93 04/29/16 00:00 97.4 87 20 124/75 97 04/28/16 21:00 Room Air 04/28/16 20:31 84 04/28/16 20:00 97.7 95 20 113/71 99 04/28/16 16:17 95 Nasal Cannula 2.00 04/28/16 16:00 98.9 85 20 105/73 90 04/28/16 13:15 91 Room Air 04/28/16 13:10 74 -: 04/28/16 0835 04/29/16 0815 Physical Exam General Appearance: Well Developed Neck Neck Exam: Neck Supple Pulmonary Resp Exam: Clear Bilaterally Cardiology CV Exam: Regular Gastrointestinal/Abdomen GI Exam: Distended GI Remarks tender Neurologic Neuro Exam: Alert Assessment/Plan Problem List: (1) End stage kidney disease Plan: Patient is positive for C. difficile and is on metronidazole, gr Neg in PD fluid On Ceftazidime IP Enterobacter Ca improved (2) Abdominal pain Plan: Likely due to C. difficile colitis Peritonitis gram neg (3) Clostridium difficile colitis Plan: Positive PCR (4) H/O parathyroidectomy Plan: on calcium supplement and continue with phosphorus binders with Victor Manuel Farrar MD Apr 29, 2016 13:10
--- NOTE | 2016-04-29 14:03 | HHI.FPPN ---
Subjective Remarks Patient seen and examined by medical team. No acute events overnight with stable vital signs. Patient's parents currently at the bedside for interview. Medical team thoroughly explain patient's condition with all questions answered. She continues to complain of lower back and abdominal pain with minimal response to current pain management. This a heating pad to assist with her pain. Otherwise she has no complaints and denies any fevers, chills, shortness of breath, chest pain, or calf tenderness. She has not had a solid bowel movement since 04/26/16; team will continue to monitor as she is positive for C. diff. Objective Vitals Vital Signs Date Time Temp Pulse Resp B/P Pulse Ox O2 Delivery O2 Flow Rate FiO2 04/29/16 12:00 98.2 92 20 110/68 92 04/29/16 10:38 99 Nasal Cannula 2.00 04/29/16 09:02 Nasal Cannula 3.00 04/29/16 09:02 96 04/29/16 08:00 97.5 79 20 97/64 97 04/29/16 04:00 97.0 82 20 119/78 93 04/29/16 00:00 97.4 87 20 124/75 97 04/28/16 21:00 Room Air 04/28/16 20:31 84 04/28/16 20:00 97.7 95 20 113/71 99 04/28/16 16:17 95 Nasal Cannula 2.00 04/28/16 16:00 98.9 85 20 105/73 90 I/O 04/28/16 04/28/16 04/28/16 04/29/16 04/29/16 04/29/16 07:00 15:00 23:00 07:00 15:00 23:00 Intake Total 50 ml 50 ml 120 ml 120 ml Output Total 324 ml 771 ml Balance 50 ml -274 ml 120 ml 120 ml -771 ml Intake Oral 50 ml 50 ml 120 ml 120 ml Peritoneal Fluid 324 ml 771 ml # Voids 0 0 0 # Bowel Movements 0 0 0 0 Result Diagram: 04/28/16 0835 04/29/16 0815 Imaging Last 72 hours Impressions Chest X-Ray 04/28/16 0000 Signed Impressions: Service Date/Time: Thursday, April 28, 2016 08:13 - CONCLUSION: No acute cardiopulmonary disease identified. Sterling Krishnamurthy MD Objective Remarks GEN: Thin AAF in obvious distress lying down in bed. CV: Regular rate and rhythm without obvious murmurs LUNGS: Clear to auscultation bilaterally with good air movement bilaterally. GI: Protuberant, tender to palpation diffusely. Voluntary guarding. Positive bowel sounds. EXT: No edema. No calf tenderness. NEURO/PSYCH: Awake, alert. Appropriate insight and judgment. Normal speech A/P Assessment and Plan 40-year-old -Citizen Of [place] female with PMH of ESRD, HTN, HIV. Was admitted for C. difficile and peritonitis. Discharge Planning Timeline unknown at this time. Pending clinical improvement. sdw Dr. Gaines Problem List: (1) SBP (spontaneous bacterial peritonitis) Status: Acute Plan: Found to have SBP with Enterobacter cloacae sensitive to ceftazidime. Despite treatment patient continues to have severe abdominal pain. Pt also found to have C diff, positive PCR. -Leukocytosis resolved on 04/26, repeat CBC today -Peritoneal fluids diagnostic of SBP with elevated absolute PMN >250 and positive culture Infectious disease consulted recommendations appreciated * Peritonitis related to peritoneal dialysis * Continue Flagyl by mouth for C. difficile colitis (04/25-, will discuss/ consider need for PO vancomycin due to lack of improvement) * Continue ceftazidime 1 g daily IP (04/26- ) Imaging: * CT abdomen/pelvis 04/24: Multiple fluid-filled bowel loops. No obstruction. Large amount of abdominal ascites. * CT abdomen/pelvis 04/29:Equal changes and left lung base. Fluid and an abnormal with no free air.Dialysis catheter in good position. Retroperitoneum unremarkable. Extensive vascular calcifications noted. Osteoporotic bone with history of renal failure. No obvious etiology for patient's diffuse abdominal pain. Meds: * Flagyl 500mg PO q8H (04/25- * ceftazidime 1 g daily IP (04/26- * Switched Protonix due Zantac 75mg daily due to C.diff * Dilaudid 2mg PO q4H pain, IV 1mg for breakthrough * K thermia pad ordered for pain relief (2) Clostridium difficile colitis Status: Acute Plan: -See above (peritonitis) (3) SOB (shortness of breath) Status: Acute Plan: New-onset SOB that started on the evening of 04/27. Patient denies any cardiac history. Patient high risk for pneumonia. Nurse reports desaturations when off O2 -Incentive spirometry and acapella -Titrate O2 -CXR ordered -If x-rays clear, consider echo (4) End stage kidney disease Status: Chronic Plan: Patient history of end-stage renal disease. Currently receiving peritoneal dialysis daily Nephrology consulted: Appreciate recommendations * Continue to replace potassium, and calcium * Continue with phosphorus binders (5) HIV (human immunodeficiency virus infection) Status: Chronic Plan: HIV medications recently adjusted, medications that she has brought in are dated from February 2016. HIV physician is Dr Sukumar Ojeda ([phone]) . Will attempt to contact office to get most up-to-date medications. -continue with current home HIV medications at this time. (6) Hypertension Status: Chronic Plan: Patient has a long-standing history of hypertension. * Holding patient's lisinopril * Continue labetalol 30 mg by mouth every 12 hours * Continue amlodipine 10 mg by mouth daily * Hydralazine IV when necessary elevated blood pressure (7) Nutrition, metabolism, and development symptoms Status: Acute Plan: Diet: Renal diet as tolerated Fluids: None Electrolytes: KCl 20 daily, Tums, PhosLo DVT PPX: Heparin and SCDs GI PPX: Pepcid Problem Qualifiers (1) Hypertension: Qualified Code: I15.1 - Hypertension secondary to other renal disorders Candelario Gaines MD R1 Apr 29, 2016 14:03
--- NOTE | 2016-04-29 16:02 | HHI.IDPN ---
Subjective Subjective Remarks Notes reviewed Temps ok Still with abdominal pain Repeat CT A/P no change; no mention of any bowel wall thickening; no oral contrast was given No BM last 2-3 days Fluid C/S Enterobacter Antibiotics IP Fortaz Flagyl Lines PIV Past Medical History ESRD HIV stable HTN Past Surgical History PD cath placement Allergies: Coded Allergies: Iron Dextran (Verified Allergy, Severe, IRON INJECTIONS, 04/24/16) PT STATES THEY HAVE NOW CHANGED BRANDS OF IRON & SHE IS ABLE TO TAKE THE NEW BRAND OF IRON Objective . Vital Signs Date Time Temp Pulse Resp B/P Pulse Ox O2 Delivery O2 Flow Rate FiO2 04/29/16 12:00 98.2 92 20 110/68 92 04/29/16 10:38 99 Nasal Cannula 2.00 04/29/16 09:02 Nasal Cannula 3.00 04/29/16 09:02 96 04/29/16 08:00 97.5 79 20 97/64 97 04/29/16 04:00 97.0 82 20 119/78 93 04/29/16 00:00 97.4 87 20 124/75 97 04/28/16 21:00 Room Air 04/28/16 20:31 84 04/28/16 20:00 97.7 95 20 113/71 99 04/28/16 16:17 95 Nasal Cannula 2.00 04/28/16 16:00 98.9 85 20 105/73 90 04/28/16 04/28/16 04/29/16 15:00 23:00 07:00 Intake Total 50 ml 120 ml 120 ml Output Total 324 ml Balance -274 ml 120 ml 120 ml Intake Oral 50 ml 120 ml 120 ml Peritoneal Fluid 324 ml # Voids 0 0 # Bowel Movements 0 0 0 . Laboratory Tests Test 04/28/16 08:35 White Blood Count 7.0 TH/MM3 Red Blood Count 3.52 MIL/MM3 Hemoglobin 11.8 GM/DL Hematocrit 35.6 % Mean Corpuscular Volume 101.3 FL Mean Corpuscular Hemoglobin 33.6 PG Mean Corpuscular Hemoglobin 33.2 % Concent Red Cell Distribution Width 14.7 % Platelet Count 228 TH/MM3 Mean Platelet Volume 9.3 FL Neutrophils (%) (Auto) 83.0 % Lymphocytes (%) (Auto) 5.0 % Monocytes (%) (Auto) 11.7 % Eosinophils (%) (Auto) 0.0 % Basophils (%) (Auto) 0.3 % Neutrophils # (Auto) 5.8 TH/MM3 Lymphocytes # (Auto) 0.4 TH/MM3 Monocytes # (Auto) 0.8 TH/MM3 Eosinophils # (Auto) 0.0 TH/MM3 Basophils # (Auto) 0.0 TH/MM3 CBC Comment DIFF FINAL Differential Comment Laboratory Tests Test 04/28/16 04/29/16 09:00 08:15 Sodium Level 130 MEQ/L 131 MEQ/L Potassium Level 3.6 MEQ/L 3.6 MEQ/L Chloride Level 90 MEQ/L 91 MEQ/L Carbon Dioxide Level 26.3 MEQ/L 25.7 MEQ/L Anion Gap 14 MEQ/L 14 MEQ/L Blood Urea Nitrogen 70 MG/DL 64 MG/DL Creatinine 15.18 MG/DL 13.35 MG/DL Estimat Glomerular Filtration 3 ML/MIN 4 ML/MIN Rate Random Glucose 129 MG/DL 118 MG/DL Calcium Level 6.8 MG/DL 7.7 MG/DL Protein Corrected Calcium 6.5 MG/DL Magnesium Level 1.8 MG/DL Total Protein 7.9 GM/DL Imaging Chest X-Ray 04/28/16 0000 Signed Impressions: Service Date/Time: Thursday, April 28, 2016 08:13 - CONCLUSION: No acute cardiopulmonary disease identified. Sterling Krishnamurthy MD Abdomen/Pelvis CT 04/24/16 0000 Signed Impressions: Service Date/Time: Sunday, April 24, 2016 15:39 - CONCLUSION: 1. Multiple fluid-filled bowel loops. No obstruction. 2. Large amount of abdominal ascites. 3. Atrophic bilateral kidneys with numerous calcifications and cysts. Brandon Romero MD Physical Exam GENERAL: awake and alert, in no apparent distress. SKIN: Warm and dry. No rashes, ecchymoses or embolic lesions. HEENT: [place] conjunctivae. No scleral icterus. No injection or drainage. Moist oral mucosa. NECK: Trachea midline. No JVD or lymphadenopathy. Supple, nontender, no meningeal signs. CARDIOVASCULAR: Regular rate and rhythm without murmurs, gallops, or rubs. RESPIRATORY: Clear to auscultation. Breath sounds equal bilaterally. No wheezes , rales, or rhonchi. GASTROINTESTINAL: Abdomen distended, hypoactive bowel sounds, with diffuse tenderness, has some guarding. PD cath site with no evidence of infection MUSCULOSKELETAL: Extremities without clubbing, cyanosis, or edema. No joint tenderness, or effusion. No calf tenderness. Negative Homans sign bilaterally. NEUROLOGICAL: Non-focal PSYCH: Normal affect, calm and cooperative LINE: PIV with no evidence of infection Assessment & Plan Remarks IMPRESSION Peritonitis with Enterobacter, PD related C difficile colitis, seems mild Persistent abdominal pain HIV, on HAART ESRD on PD RECOMMENDATION Give Flagyl po for C diff colitis Continue IP Fortaz Consider repeat PD fluid analysis to reevaluate status of her peritonitis Don't think C diff causing abdominal pain, but more her peritonitis Monitor progress Avani Blackwell MD Apr 29, 2016 16:02
[2016-04-29 19:43] LABS: PERITONEAL WBC 8585 /MM3 (0-10)
[2016-04-29 19:44] LABS: PERITONEAL LYMPHS 8 %; PERITONEAL POLYS(SEGS) 92 %
[2016-04-29] MEDS: DOLUTEGRAVIR SODIUM 50 MG TAB PO SCH (20:56)
[2016-04-29] MEDS: ATORVASTATIN 10 MG TAB PO SCH (20:57)
[2016-04-29] MEDS: RILPIVIRINE 25 MG TAB PO SCH (20:57)
[2016-04-30] VITALS (9 sets, daily range): BP systolic 100–121; BP diastolic 64–78; PULSE 76–103; RESP 16–20; TEMP 97.2–98.6; O2SAT 91–95
[2016-04-30] MEDS: HYDROmorphone HCL 2 MG TAB PO PRN ×4 (01:00→21:30)
[2016-04-30] MEDS: HEPARIN SODIUM - SQ 10,000 UNITS/ML VIAL SQ SCH ×2 (01:01→08:37)
[2016-04-30] MEDS: HYDROmorphone HCL PF 1 MG/ML VIAL IV PUSH PRN ×2 (02:50→12:07)
[2016-04-30] MEDS: CALCIUM CARBONATE 500 MG CHEWABLE TAB CHEW SCH ×7 (04:00→23:18)
[2016-04-30] MEDS: metroNIDAZOLE 500 MG TAB PO SCH ×3 (05:38→21:30)
[2016-04-30 07:14] LABS: AUTOMATED NEUTROPHIL # 6.9 TH/MM3 (1.8-7.7); BASOPHIL % 0.3 % (0.0-2.0); EOSINOPHIL % 0.1 % (0.0-4.0); HEMATOCRIT 33.2 % (35.0-46.0); HEMO FLAGS DIFF FINAL; LYMPH % 6.6 % (9.0-44.0); LYMPHOCYTE # 0.6 TH/MM3 (1.0-4.8); MEAN CELL VOLUME 99.9 FL (80.0-100.0); MEAN CORPUSCULAR HEMOGLOBIN 33.1 PG (27.0-34.0); MEAN CORPUSCULAR HGB CONC 33.1 % (32.0-36.0); MONO % 12.8 % (0.0-8.0); NEUT % 80.2 % (16.0-70.0); PLATELET COUNT 290 TH/MM3 (150-450); RED BLOOD COUNT 3.32 MIL/MM3 (4.00-5.30); RED CELL DISTRIBUTION WIDTH 14.1 % (11.6-17.2); WHITE BLOOD COUNT 8.6 TH/MM3 (4.0-11.0)
[2016-04-30 08:01] LABS: BICARBONATE 27.4 MEQ/L (21.0-32.0); POTASSIUM 3.4 MEQ/L (3.5-5.1); TOTAL BILIRUBIN ADULT 0.6 MG/DL (0.2-1.0)
[2016-04-30 08:18] LABS: CALCIUM-PROTEIN CORRECTED 7.1 MG/DL (8.5-10.1)
[2016-04-30] MEDS: FAMOTIDINE 20 MG TAB PO SCH (08:36)
[2016-04-30] MEDS: LACTOBACILLUS ACIDOPHILUS TAB PO SCH ×3 (08:36→16:38)
[2016-04-30] MEDS: POTASSIUM CHLORIDE 20 MEQ CONTROLLED RELEASE TAB PO SCH ×2 (08:37→08:49)
[2016-04-30] MEDS: SODIUM CHLORIDE 0.9% FLUSH 5 ML FLUSH FLUSH SCH ×2 (08:37→21:31)
[2016-04-30] MEDS: CALCIUM ACETATE 667 MG CAP PO SCH ×3 (08:43→16:39)
--- NOTE | 2016-04-30 10:05 | HHI.FPPN ---
Subjective Remarks Patient seen and examined this morning. No acute events overnight with stable vital signs. Her only complaint this morning is continued ABD pain. She states that the K-Thermia pad has helped her pain overall, but it is still causing her great distress. She also had a short episode of SOB when off her nasal cannula, however has returned to saturating 95% while on 3L NC. Nursing staff reports that patient has not urinated in 4 days, however patient states this is her baseline as she is hemodialysis dependent. She refused her Potassium supplement overnight as the tablets were too large to swallow; medical team will order Potassium liquid supplement. Otherwise she has no complaints and denies any fevers, chills, chest pain, or calf tenderness. (Candelario Gaines MD R1) Objective Vitals Vital Signs Date Time Temp Pulse Resp B/P Pulse Ox O2 Delivery O2 Flow Rate FiO2 04/30/16 08:57 95 Nasal Cannula 3.00 04/30/16 08:00 97.7 86 20 109/71 95 04/30/16 04:48 97.2 76 16 100/64 92 04/30/16 00:00 98.0 86 18 108/70 92 04/29/16 23:28 98 04/29/16 23:28 Nasal Cannula 3.00 04/29/16 23:13 95 Nasal Cannula 2.00 04/29/16 20:00 98.3 107 17 125/73 99 04/29/16 16:00 99.0 98 20 120/78 91 04/29/16 12:00 98.2 92 20 110/68 92 04/29/16 10:38 99 Nasal Cannula 2.00 I/O 04/29/16 04/29/16 04/29/16 04/30/16 04/30/16 04/30/16 07:00 15:00 23:00 07:00 15:00 23:00 Intake Total 120 ml 50 ml 240 ml Output Total 771 ml 0 ml Balance 120 ml -721 ml 240 ml Intake Oral 120 ml 50 ml 240 ml Output Urine Total 0 ml 0 ml Peritoneal Fluid 771 ml # Voids 0 # Bowel Movements 0 0 0 (Candelario Gaines MD R1) Result Diagram: 04/30/1615 04/30/16 0615 Objective Remarks GEN: Thin AAF in obvious distress lying down in bed. CV: Regular rate and rhythm without obvious murmurs LUNGS: Clear to auscultation bilaterally with good air movement bilaterally. GI: Protuberant, tender to palpation diffusely. Voluntary guarding. Positive bowel sounds. ABD bandage CDI. EXT: No edema. No calf tenderness. NEURO/PSYCH: Awake, alert. Appropriate insight and judgment. Normal speech ( Candelario Gaines MD R1) A/P Assessment and Plan 40-year-old -English female with PMH of ESRD, HTN, HIV. Was admitted for C. difficile and peritonitis. Discharge Planning Timeline unknown at this time. Pending clinical improvement. (Candelario Gaines MD R1) Attending Attestation Patient seen and examined. Case reviewed and discussed with the resident team. Agree with plan of care as discussed with me and documented in the resident note. (Mary Alice Nicole MD) Problem List: (1) SBP (spontaneous bacterial peritonitis) Status: Acute Plan: Found to have SBP with Enterobacter cloacae sensitive to ceftazidime. Despite treatment patient continues to have severe abdominal pain. Pt also found to have C diff, positive PCR. -Leukocytosis resolved on 04/26, repeat CBC today -Peritoneal fluids diagnostic of SBP with elevated absolute PMN >250 and positive culture Infectious disease consulted recommendations appreciated * Peritonitis related to peritoneal dialysis (Enterobacter - bush sensitive) * Continue Flagyl by mouth for C. difficile colitis (04/25-, will discuss/ consider need for PO vancomycin due to lack of improvement) * Continue ceftazidime 1 g daily IP (04/26- ) * Repeat PD fluid analysis 04/30: WBC 8585 up from 2738, RBC 3824 up from 163, Neutrophils 92, Lymphocytes 8, Culture pending Imaging: * CT abdomen/pelvis 04/24: Multiple fluid-filled bowel loops. No obstruction. Large amount of abdominal ascites. * CT abdomen/pelvis 04/29:Equal changes and left lung base. Fluid and an abnormal with no free air.Dialysis catheter in good position. Retroperitoneum unremarkable. Extensive vascular calcifications noted. Osteoporotic bone with history of renal failure. No obvious etiology for patient's diffuse abdominal pain. Meds: * Flagyl 500mg PO q8H (04/25- * ceftazidime 1 g daily IP (04/26- * Switched Protonix due Zantac 75mg daily due to C.diff * Dilaudid 2mg PO q4H pain, IV 1mg for breakthrough * K thermia pad ordered for pain relief (2) Clostridium difficile colitis Status: Acute Plan: -See above (peritonitis) (3) SOB (shortness of breath) Status: Acute Plan: New-onset SOB that started on the evening of 04/27. Patient denies any cardiac history. Patient high risk for pneumonia. Nurse reports desaturations when off O2. -Incentive spirometry and acapella -Titrate O2 -CXR ordered -If x-rays clear, consider echo with worsening symptoms (4) End stage kidney disease Status: Chronic Plan: Patient history of end-stage renal disease. Currently receiving peritoneal dialysis daily Nephrology consulted: Appreciate recommendations * Continue to replace potassium, and calcium * Continue with phosphorus binders (5) HIV (human immunodeficiency virus infection) Status: Chronic Plan: HIV medications recently adjusted, medications that she has brought in are dated from February 2016. HIV physician is Dr Sukumar Ojeda ([phone]) . Reconciled medications indicated home HIV medication therapy, except for Lamivudine as she takes this daily, not BID. -Continue with current home HIV medications at this time. (6) Hypertension Status: Chronic Plan: Patient has a long-standing history of hypertension. * Holding patient's lisinopril * Continue labetalol 30 mg by mouth every 12 hours * Continue amlodipine 10 mg by mouth daily * Hydralazine IV when necessary elevated blood pressure (7) Nutrition, metabolism, and development symptoms Status: Acute Plan: Diet: Renal diet as tolerated Fluids: None Electrolytes: KCl 20 daily liquid, Tums, PhosLo DVT PPX: Heparin and SCDs GI PPX: Pepcid (Candelario Gaines MD R1) Problem Qualifiers (1) Hypertension: Qualified Code: I15.1 - Hypertension secondary to other renal disorders Candelario Gaines MD R1 Apr 30, 2016 10:05 Mary Alice Nicole MD Apr 30, 2016 15:20
[2016-04-30] MEDS ORDERED: SODIUM CHLOR 0.9% 1000 ML INJ 1,000 ML IV PRN ×3 (10:19)
--- NOTE | 2016-04-30 10:19 | HHI.NPPN ---
Subjective History of Present Illness 40 year old female with ESRD C dif colitis gr neg peritonitis Review of Systems General Constitutional: Fatigue Gastrointestinal Gastrointestinal: Abdominal Pain Objective Data Data 04/29/16 04/30/16 19:00 07:00 Intake Total 50 ml 240 ml Output Total 771 ml 0 ml Balance -721 ml 240 ml Intake Oral 50 ml 240 ml Output Urine Total 0 ml 0 ml Peritoneal Fluid 771 ml # Bowel Movements 0 0 Vital Signs Date Time Temp Pulse Resp B/P Pulse Ox O2 Delivery O2 Flow Rate FiO2 04/30/16 08:57 95 Nasal Cannula 3.00 04/30/16 08:00 97.7 86 20 109/71 95 04/30/16 04:48 97.2 76 16 100/64 92 04/30/16 00:00 98.0 86 18 108/70 92 04/29/16 23:28 98 04/29/16 23:28 Nasal Cannula 3.00 04/29/16 23:13 95 Nasal Cannula 2.00 04/29/16 20:00 98.3 107 17 125/73 99 04/29/16 16:00 99.0 98 20 120/78 91 04/29/16 12:00 98.2 92 20 110/68 92 04/29/16 10:38 99 Nasal Cannula 2.00 -: 04/30/16 0615 04/30/16 0615 Microbiology 04/29/16 Gram Stain - Final, Resulted 04/29/16 Body Fluid Culture, Resulted Pending Physical Exam General Appearance: Well Developed Neck Neck Exam: Neck Supple Pulmonary Resp Exam: Clear Bilaterally Cardiology CV Exam: Regular Gastrointestinal/Abdomen GI Exam: Distended GI Remarks tender Neurologic Neuro Exam: Alert Assessment/Plan Problem List: (1) End stage kidney disease Plan: Patient is positive for C. difficile and is on metronidazole, gr Neg in PD fluid On Ceftazidime IP Enterobacter Repeat Cell count high c/o abdominal pain discussed Peritonitis not improved, need to get Tenkhoff catheter out place PermCath and do Hemodialysis, may have to wait and see if she resolved infection then PD may be re considered later she agreed to proceed will request PermCath consult GS for removal of Tenkhoff (2) Abdominal pain Plan: Likely due to C. difficile colitis Peritonitis gram neg (3) Clostridium difficile colitis Plan: Positive PCR (4) H/O parathyroidectomy Plan: on calcium supplement and continue with phosphorus binders with PhosLo Annelise,Sajid MD Apr 30, 2016 10:19
[2016-04-30] MEDS ORDERED: HEPARIN SODIUM - IV 10,000 UNITS/10 ML VIAL PRN (10:30)
[2016-04-30] MEDS ORDERED: NITROGLYCERIN 0.4 MG SL 25 TABS/BTL SL PRN (10:30)
[2016-04-30] MEDS ORDERED: SODIUM CHLORIDE 0.9% FLUSH 5 ML FLUSH IVF PRN (10:30)
[2016-04-30] MEDS ORDERED: MANNITOL 12.5 GM/50 ML VIAL IV PRN (10:30)
[2016-04-30] MEDS ORDERED: ACETAMINOPHEN 325 MG TAB PO PRN (10:30)
[2016-04-30] MEDS ORDERED: HEPARIN SODIUM - IV 10,000 UNITS/10 ML VIAL IVF PRN (10:30)
[2016-04-30] MEDS ORDERED: GELATIN 12 MM/7 MM FOAM TOP PRN (10:30)
[2016-04-30] MEDS ORDERED: cloNIDine HCL 0.1 MG TAB PO PRN (10:30)
[2016-04-30] MEDS ORDERED: diphenhydrAMINE HCL 25 MG CAP PO PRN (10:30)
[2016-04-30] MEDS ORDERED: ALBUMIN HUMAN 25% 25 GM/100 ML BAGP IV PRN (10:30)
[2016-04-30] MEDS ORDERED: ONDANSETRON HCL 4 MG/2 ML VIAL IV PRN (10:30)
--- NOTE | 2016-04-30 10:36 | HHI.IDPN ---
Subjective Subjective Remarks Notes reviewed Temps ok Still with significant abdominal pain Repeat PD fluid analysis worsening Repeat CT A/P no change; no mention of any bowel wall thickening; no oral contrast was given No BM last 2-3 days Fluid C/S Enterobacter Antibiotics IP Fortaz Flagyl Lines PIV Past Medical History ESRD HIV stable HTN Past Surgical History PD cath placement Allergies: Coded Allergies: Iron Dextran (Verified Allergy, Severe, IRON INJECTIONS, 04/24/16) PT STATES THEY HAVE NOW CHANGED BRANDS OF IRON & SHE IS ABLE TO TAKE THE NEW BRAND OF IRON Objective . Vital Signs Date Time Temp Pulse Resp B/P Pulse Ox O2 Delivery O2 Flow Rate FiO2 04/30/16 08:57 95 Nasal Cannula 3.00 04/30/16 08:00 97.7 86 20 109/71 95 04/30/16 04:48 97.2 76 16 100/64 92 04/30/16 00:00 98.0 86 18 108/70 92 04/29/16 23:28 98 04/29/16 23:28 Nasal Cannula 3.00 04/29/16 23:13 95 Nasal Cannula 2.00 04/29/16 20:00 98.3 107 17 125/73 99 04/29/16 16:00 99.0 98 20 120/78 91 04/29/16 12:00 98.2 92 20 110/68 92 04/29/16 10:38 99 Nasal Cannula 2.00 04/29/16 04/29/16 04/30/16 15:00 23:00 07:00 Intake Total 50 ml 240 ml Output Total 771 ml 0 ml Balance -721 ml 240 ml Intake Oral 50 ml 240 ml Output Urine Total 0 ml 0 ml Peritoneal Fluid 771 ml # Bowel Movements 0 0 . Laboratory Tests Test 04/30/16 06:15 White Blood Count 8.6 TH/MM3 Red Blood Count 3.32 MIL/MM3 Hemoglobin 11.0 GM/DL Hematocrit 33.2 % Mean Corpuscular Volume 99.9 FL Mean Corpuscular Hemoglobin 33.1 PG Mean Corpuscular Hemoglobin 33.1 % Concent Red Cell Distribution Width 14.1 % Platelet Count 290 TH/MM3 Mean Platelet Volume 9.9 FL Neutrophils (%) (Auto) 80.2 % Lymphocytes (%) (Auto) 6.6 % Monocytes (%) (Auto) 12.8 % Eosinophils (%) (Auto) 0.1 % Basophils (%) (Auto) 0.3 % Neutrophils # (Auto) 6.9 TH/MM3 Lymphocytes # (Auto) 0.6 TH/MM3 Monocytes # (Auto) 1.1 TH/MM3 Eosinophils # (Auto) 0.0 TH/MM3 Basophils # (Auto) 0.0 TH/MM3 CBC Comment DIFF FINAL Differential Comment Laboratory Tests Test 04/29/16 04/30/16 08:15 06:15 Sodium Level 131 MEQ/L 131 MEQ/L Potassium Level 3.6 MEQ/L 3.4 MEQ/L Chloride Level 91 MEQ/L 90 MEQ/L Carbon Dioxide Level 25.7 MEQ/L 27.4 MEQ/L Anion Gap 14 MEQ/L 14 MEQ/L Blood Urea Nitrogen 64 MG/DL 56 MG/DL Creatinine 13.35 MG/DL 12.35 MG/DL Estimat Glomerular Filtration 4 ML/MIN 4 ML/MIN Rate Random Glucose 118 MG/DL 138 MG/DL Calcium Level 7.7 MG/DL 7.3 MG/DL Protein Corrected Calcium 7.1 MG/DL Total Bilirubin 0.6 MG/DL Aspartate Amino Transf 17 U/L (AST/SGOT) Alanine Aminotransferase 15 U/L (ALT/SGPT) Alkaline Phosphatase 70 U/L Total Protein 7.7 GM/DL Albumin 1.6 GM/DL Microbiology Date/Time Procedure Status Source Growth 04/29/16 17:00 Gram Stain - Final Resulted Fluid Peritoneal Fluid 04/29/16 17:00 Body Fluid Culture Resulted Fluid Peritoneal Fluid Pending Imaging Chest X-Ray 04/28/16 0000 Signed Impressions: Service Date/Time: Thursday, April 28, 2016 08:13 - CONCLUSION: No acute cardiopulmonary disease identified. Sterling Krishnamurthy MD Abdomen/Pelvis CT 04/24/16 0000 Signed Impressions: Service Date/Time: Sunday, April 24, 2016 15:39 - CONCLUSION: 1. Multiple fluid-filled bowel loops. No obstruction. 2. Large amount of abdominal ascites. 3. Atrophic bilateral kidneys with numerous calcifications and cysts. Brandon Romero MD Physical Exam GENERAL: awake and alert, in no apparent distress. SKIN: Warm and dry. No rashes, ecchymoses or embolic lesions. HEENT: [place] conjunctivae. No scleral icterus. No injection or drainage. Moist oral mucosa. NECK: Supple, nontender, no meningeal signs. CARDIOVASCULAR: Regular rate and rhythm without murmurs, gallops, or rubs. RESPIRATORY: Clear to auscultation. Breath sounds equal bilaterally. No wheezes , rales, or rhonchi. GASTROINTESTINAL: Abdomen distended, hypoactive bowel sounds, with diffuse tenderness, has some guarding. PD cath site with no evidence of infection MUSCULOSKELETAL: Extremities without clubbing, cyanosis, or edema. No joint tenderness, or effusion. No calf tenderness. Negative Homans sign bilaterally. NEUROLOGICAL: Non-focal PSYCH: Normal affect, calm and cooperative LINE: PIV with no evidence of infection Assessment & Plan Remarks IMPRESSION Peritonitis with Enterobacter, PD related - worsening C difficile colitis, seems mild Persistent abdominal pain HIV, on HAART ESRD on PD RECOMMENDATION Give Flagyl po for C diff colitis Continue IP Fortaz Surgery to eval for removal of Tenckhoff cath Give IV Abx - Merem Monitor progress Avani Blackwell MD Apr 30, 2016 10:36
[2016-04-30] MEDS ORDERED: [UNRECOGNIZED DRUG - OTHER] XX PRN (10:45)
[2016-04-30] MEDS ORDERED: MISCELLANEOUS PHARMACY INFORMATION XX PRN (10:45)
[2016-04-30] MEDS: LABETALOL HCL 300 MG TAB PO SCH ×2 (10:58→21:30)
[2016-04-30] MEDS: POTASSIUM CHLORIDE 20 MEQ PWD PACKET PO SCH ×2 (12:03→21:00)
[2016-04-30] MEDS: MEROPENEM INJ 500 MG in SODIUM CHLORIDE 0.9% INJ 100 ML IV SCH (12:08)
[2016-04-30] MEDS: DOLUTEGRAVIR SODIUM 50 MG TAB PO SCH (21:30)
[2016-04-30] MEDS: RILPIVIRINE 25 MG TAB PO SCH (21:30)
[2016-04-30] MEDS: ATORVASTATIN 10 MG TAB PO SCH (21:30)
[2016-05-01] VITALS (8 sets, daily range): BP systolic 113–128; BP diastolic 73–83; PULSE 90–109; RESP 18–20; TEMP 98.8–99.8; O2SAT 92–98
[2016-05-01] MEDS: CALCIUM CARBONATE 500 MG CHEWABLE TAB CHEW SCH ×6 (04:00→23:59)
[2016-05-01] MEDS: metroNIDAZOLE 500 MG TAB PO SCH ×3 (06:26→20:43)
[2016-05-01] MEDS: HYDROmorphone HCL 2 MG TAB PO PRN ×2 (06:26→20:43)
[2016-05-01] MEDS: FAMOTIDINE 20 MG TAB PO SCH (08:55)
[2016-05-01] MEDS: LACTOBACILLUS ACIDOPHILUS TAB PO SCH ×3 (08:56→18:37)
[2016-05-01] MEDS ORDERED: VANCOMYCIN INJ 1,000 MG in SODIUM CHLOR 0.9% 250 ML INJ 250 ML IV SCH (09:00)
[2016-05-01] MEDS ORDERED: ceFAZolin 2 GM PREMIX 50 ML IV SCH (09:00)
[2016-05-01] MEDS: CALCIUM ACETATE 667 MG CAP PO SCH ×3 (09:00→17:39)
[2016-05-01] MEDS: POTASSIUM CHLORIDE 20 MEQ PWD PACKET PO SCH ×2 (09:00→20:43)
[2016-05-01] MEDS: LABETALOL HCL 300 MG TAB PO SCH ×2 (09:00→20:43)
[2016-05-01] MEDS: SODIUM CHLORIDE 0.9% FLUSH 5 ML FLUSH FLUSH SCH ×2 (09:06→20:43)
[2016-05-01 10:02] LABS: BICARBONATE 25.2 MEQ/L (21.0-32.0); POTASSIUM 3.9 MEQ/L (3.5-5.1); TOTAL BILIRUBIN ADULT 0.7 MG/DL (0.2-1.0)
[2016-05-01 10:11] LABS: CALCIUM-PROTEIN CORRECTED 6.7 MG/DL (8.5-10.1)
--- NOTE | 2016-05-01 10:28 | HHI.FPPN ---
Subjective Remarks No acute events overnight. Vital signs show a pulse in the 100s and elevated temp of 99.8. This morning patient was about to get her PermCath placed. She reports that she has had no improvement in her symptoms and continues to have severe abdominal pain that is worsened with deep breaths. Denies any worsening symptoms but just stagnant progress. (Ariela Regan MD R2) Objective Vitals Vital Signs Date Time Temp Pulse Resp B/P Pulse Ox O2 Delivery O2 Flow Rate FiO2 05/01/16 10:05 94 Nasal Cannula 3.00 05/01/16 08:00 98.8 94 18 127/81 95 05/01/16 04:00 99.8 90 20 120/78 95 05/01/16 00:00 99.2 100 20 128/79 98 04/30/16 21:38 Nasal Cannula 2.00 04/30/16 20:07 98 04/30/16 20:00 98.6 103 16 119/78 91 04/30/16 16:00 98.2 100 20 121/76 91 04/30/16 12:00 97.9 95 20 116/77 91 I/O 04/30/16 04/30/16 04/30/16 05/01/16 05/01/16 05/01/16 07:00 15:00 23:00 07:00 15:00 23:00 Intake Total 120 ml 240 ml 240 ml Output Total 0 ml 0 ml Balance 120 ml 240 ml 240 ml Intake Oral 120 ml 240 ml 240 ml Output Urine Total 0 ml 0 ml # Voids 0 # Bowel Movements 0 0 0 (Ariela Regan MD R2) Result Diagram: 04/30/16 0615 05/01/16 0825 Objective Remarks GEN: Thin AAF in obvious distress lying down in bed. CV: Regular rate and rhythm without obvious murmurs LUNGS: Clear to auscultation bilaterally with good air movement bilaterally. GI: Protuberant, tender to palpation diffusely. Voluntary guarding. EXT: No edema. No calf tenderness. NEURO/PSYCH: Awake, alert. Appropriate insight and judgment. Normal speech ( Ariela Regan MD R2) A/P Assessment and Plan 40-year-old -[place] female with PMH of ESRD, HTN, HIV. Was admitted for C. difficile and peritonitis. Discharge Planning Timeline unknown at this time. Pending clinical improvement. Will need PT consult once acute symptoms improve dw Dr. Gaines wdw Dr. Nicole [facility] Attending Attestation Patient seen and examined. Case reviewed and discussed with the resident team. Agree with plan of care as discussed with me and documented in the resident note. (Mary Alice Nicole MD) Problem List: (1) SBP (spontaneous bacterial peritonitis) Status: Acute Plan: Found to have SBP with Enterobacter cloacae sensitive to ceftazidime. Despite treatment patient continues to have severe abdominal pain. Pt also found to have C diff, positive PCR. -Leukocytosis resolved on 04/26 and patient remains afebrile. -Peritoneal fluids diagnostic of SBP with elevated absolute PMN >250 and positive culture. -Repeat peritoneal fluid analysis shows worsening WBC and RBC. Cultures showing gram-negative vcitor hugo, sensitivities and identification to follow. Infectious disease consulted recommendations appreciated * Peritonitis related to peritoneal dialysis (Enterobacter - bush sensitive) * Continue Flagyl and ceftazidime * Started meropenem * Surgery to evaluate for removal of Tenckhoff cath Imaging: * CT abdomen/pelvis 04/24: Multiple fluid-filled bowel loops. No obstruction. Large amount of abdominal ascites. * CT abdomen/pelvis 04/29:Equal changes and left lung base. Fluid and an abnormal with no free air.Dialysis catheter in good position. Retroperitoneum unremarkable. Extensive vascular calcifications noted. Osteoporotic bone with history of renal failure. No obvious etiology for patient's diffuse abdominal pain. Meds: * Flagyl 500mg PO q8H (04/25- * ceftazidime 1 g daily IP (04/26- * Meropenem 500mg daily (04/30- (2) End stage kidney disease Status: Chronic Plan: Patient history of end-stage renal disease. Currently receiving peritoneal dialysis daily Nephrology consulted: Appreciate recommendations * Continue to replace potassium, and calcium * Continue with phosphorus binders * Okay with removal of Tenkhoff cath * Place PermCath and do hemodialysis (3) Clostridium difficile colitis Status: Acute Plan: -See above (peritonitis) (4) SOB (shortness of breath) Status: Acute Plan: New-onset SOB that started on the evening of 04/27. Symptoms persist the likely due to peritonitis. Patient is at high risk of pneumonia antibiotics should also provide coverage. -Incentive spirometry and acapella -Titrate O2 -CXR unremarkable (5) HIV (human immunodeficiency virus infection) Status: Chronic Plan: HIV medications recently adjusted and verified. HIV physician is Dr Sukumar Ojeda ([phone]). -Continue with current home HIV medications at this time. (6) Hypertension Status: Chronic Plan: Patient has a long-standing history of hypertension. * Holding patient's lisinopril * Continue labetalol 30 mg by mouth every 12 hours * Continue amlodipine 10 mg by mouth daily * Hydralazine IV when necessary elevated blood pressure (7) Nutrition, metabolism, and development symptoms Status: Acute Plan: Diet: Renal diet as tolerated Fluids: None Electrolytes: KCl 20 daily liquid, Tums, PhosLo DVT PPX: Heparin and SCDs GI PPX: Pepcid (Ariela Regan MD R2) Problem Qualifiers (1) Hypertension: Qualified Code: I15.1 - Hypertension secondary to other renal disorders Ariela Regan MD R2 May 01, 2016 10:28 Mary Alice Nicole MD May 01, 2016 14:59
[2016-05-01] MEDS ORDERED: MIDAZOLAM HCL 5 MG/5 ML VIAL ONE (11:26)
[2016-05-01] MEDS ORDERED: fentaNYL CITRATE 250 MCG/5 ML AMP ONE (11:27)
[2016-05-01] MEDS ORDERED: LIDOCAINE 1%/EPINEPHrine 1:100,000 SOLN 20 ML VIAL ONE (11:29)
--- NOTE | 2016-05-01 12:07 | PD.RAD ---
Post Procedure Progress Note Pre Procedure Diagnosis: (1) End stage kidney disease (2) Peritonitis Post Procedure Diagnosis: (1) End stage kidney disease (2) Peritonitis Procedure Date: May 01, 2016 Supervising Radiologist: Rod Bojorquez JR Proceduralist/Assist: Peg Acosta, RT(R), Tamy Olson RT(R)(CV) Anesthesia: Conscious Sedation Plan of Activity Patient to Unit: ROPU Patient Condition: Good See PACS Report for procedural detail/treatment Central Venous Access Device Procedure 1 Right Internal Jugular Hemodialysis Catheter Tunneled Placement dual lumen [place]: 15 Findings: Permcath functions well and ready for use. Plan Remove sutures in 2-3 weeks Jr. [place],Rod Mitchell MD May 01, 2016 12:07
[2016-05-01] MEDS ORDERED: SODIUM CHLORIDE 0.9% FLUSH 5 ML FLUSH IVF PRN (12:15)
[2016-05-01] MEDS: GENTAMICIN SULFATE (DIALYSIS USE ONLY) 20 MG/2 ML VIAL IV PRN (12:54)
[2016-05-01] MEDS: EPOETIN ALFA 10,000 UNITS/ML VIAL IV PRN (12:55)
[2016-05-01] MEDS: HEPARIN SODIUM - IV 10,000 UNITS/10 ML VIAL IVF PRN (12:55)
--- NOTE | 2016-05-01 13:43 | RADRPT ---
EXAM DATE/TIME: 05/01/2016 11:20 [place] COMPARISON: No previous studies available for comparison. INDICATIONS : Patient with a history of end stage renal disease. MEDICAL HISTORY : HIV ESRD HTN SURGICAL HISTORY : Suprapubic catheter ENCOUNTER: Initial ACUITY: >1 year PAIN SCORE: 8/10 Abdomen FLUORO TIME: 0.9 minutes SEDATION TIME: 30 minutes ACCESS: Right internal jugular vein SEDATION: 1.) 1 mg midazolam (Versed) IV 2.) 100 mcg fentanyl (Sublimaze) IV Prophylactic antibiotics were administered with appropriate pre-procedure timing. Vancomycin within 2 hours of procedure, Ancef (or alternative) within 1 hour of procedure. DEVICE: 1. 15 [place] dual lumen 19 cm Permacath PROCEDURE : 1. Ultrasound-guided venipuncture. 2. PermaCath placement. 3. Conscious sedation with continuous EKG and oximetry monitoring. The risks, benefits and alternatives to the procedure were explained and verbal and written consent w as obtained. The site was prepped in sterile fashion. Full sterile technique was used, including ca p, mask, sterile gloves and gown and a large sterile sheet. Hand hygiene and 2% chlorhexidine and/or betadine/alcohol prep was utilized per protocol for cutaneous antisepsis. The skin and subcutaneous tissues were infiltrated with local anesthetic solution. With ultrasound and fluoroscopic guidance a dermatotomy was created over the prescribed vein. A micr opuncture set was used to access the targeted vein and serial dilatation was performed to accept the prescribed length catheter. A subcutaneous tunnel was created in a retrograde fashion the catheter w as pulled through the tunnel. The catheter was flushed and assembled and locked with heparin. The c atheter was sutured in place. Conscious sedation was performed with the prescribed dosages and duration as above. The patient tole rated the procedure well and there were no complications. EKG and oximetry remained stable throughou t the procedure. The patient was sent to post anesthesia recovery in stable condition. CONCLUSION: Uncomplicated PermaCath placement as above. Rod Bojorquez Jr., MD on May 01, 2016 at 13:41 Board Certified Radiologist. This report was verified electronically.
--- NOTE | 2016-05-01 14:27 | HHI.NPPN ---
Subjective History of Present Illness 40 year old female with ESRD C dif colitis gr neg peritonitis Review of Systems General Constitutional: Fatigue Gastrointestinal Gastrointestinal: Abdominal Pain Objective Data Data 04/30/16 05/01/16 19:00 07:00 Intake Total 120 ml 480 ml Output Total 0 ml Balance 120 ml 480 ml Intake Oral 120 ml 480 ml Output Urine Total 0 ml # Voids 0 # Bowel Movements 0 0 Vital Signs Date Time Temp Pulse Resp B/P Pulse Ox O2 Delivery O2 Flow Rate FiO2 05/01/16 10:05 94 Nasal Cannula 3.00 05/01/16 08:00 98.8 94 18 127/81 95 05/01/16 04:00 99.8 90 20 120/78 95 05/01/16 00:00 99.2 100 20 128/79 98 04/30/16 21:38 Nasal Cannula 2.00 04/30/16 20:07 98 04/30/16 20:00 98.6 103 16 119/78 91 04/30/16 16:00 98.2 100 20 121/76 91 -: 04/30/16 0615 05/01/16 0825 Physical Exam General Appearance: Well Developed Neck Neck Exam: Neck Supple Pulmonary Resp Exam: Clear Bilaterally Cardiology CV Exam: Regular Gastrointestinal/Abdomen GI Exam: Distended GI Remarks tender Neurologic Neuro Exam: Alert Assessment/Plan Problem List: (1) End stage kidney disease Plan: Patient is positive for C. difficile and is on metronidazole, gr Neg in PD fluid Enterobacter on Meropenem Repeat Cell count high c/o abdominal pain repeat culture going GN rods requested Tenkhoff removal possibly tomorrow seen during hemodialysis 2 L UF 3K bath (2) Abdominal pain Plan: Likely due to C. difficile colitis Peritonitis gram neg (3) Clostridium difficile colitis Plan: Positive PCR (4) H/O parathyroidectomy Plan: on calcium supplement and continue with phosphorus binders with Victor Manuel Farrar MD May 01, 2016 14:26
[2016-05-01] MEDS: MEROPENEM INJ 500 MG in SODIUM CHLORIDE 0.9% INJ 100 ML IV SCH (15:14)
[2016-05-01 17:41] LABS: AUTOMATED NEUTROPHIL # 14.5 TH/MM3 (1.8-7.7); BASOPHIL % 0.3 % (0.0-2.0); EOSINOPHIL % 0.3 % (0.0-4.0); HEMO FLAGS DIFF FINAL; LYMPH % 2.7 % (9.0-44.0); LYMPHOCYTE # 0.5 TH/MM3 (1.0-4.8); MEAN CELL VOLUME 98.3 FL (80.0-100.0); MEAN CORPUSCULAR HEMOGLOBIN 33.5 PG (27.0-34.0); MEAN CORPUSCULAR HGB CONC 34.1 % (32.0-36.0); MONO % 9.9 % (0.0-8.0); NEUT % 86.8 % (16.0-70.0); PLATELET COUNT 366 TH/MM3 (150-450); RED BLOOD COUNT 3.16 MIL/MM3 (4.00-5.30); RED CELL DISTRIBUTION WIDTH 14.5 % (11.6-17.2); WHITE BLOOD COUNT 16.7 TH/MM3 (4.0-11.0)
[2016-05-01] MEDS: RILPIVIRINE 25 MG TAB PO SCH (20:43)
[2016-05-01] MEDS: DOLUTEGRAVIR SODIUM 50 MG TAB PO SCH (20:43)
[2016-05-01] MEDS: ATORVASTATIN 10 MG TAB PO SCH (20:43)
[2016-05-01] MEDS: HYDROmorphone HCL PF 1 MG/ML VIAL IV PUSH PRN (22:56)
[2016-05-02] VITALS: BP 115/77; PULSE 99; RESP 17; TEMP 98.8; O2SAT 93
[2016-05-02] MEDS: HYDROmorphone HCL 2 MG TAB PO PRN ×4 (03:20→23:23)
[2016-05-02 04:00] VITALS: BP 121/71; PULSE 98; RESP 17; TEMP 98.1; O2SAT 97
[2016-05-02] MEDS: CALCIUM CARBONATE 500 MG CHEWABLE TAB CHEW SCH ×6 (04:00→23:22)
[2016-05-02] MEDS: metroNIDAZOLE 500 MG TAB PO SCH ×3 (06:39→21:03)
[2016-05-02] MEDS: HYDROmorphone HCL PF 1 MG/ML VIAL IV PUSH PRN ×3 (06:39→21:03)
--- NOTE | 2016-05-02 07:27 | HHI.FPPN ---
Subjective Remarks No acute events overnight. Vital signs this morning continue show mild tachycardia. Patient had PermCath placed yesterday. This morning she reports improvement in her abdominal pain that she believes is because she is keeping up with her pain medication. Patient does report an improvement in her SOB since hemodialysis. In relation to the removal of the Tenkhoff, she reports that she spoke with Dr. Barrios yesterday. (Ariela Regan MD R2) Objective Vitals Vital Signs Date Time Temp Pulse Resp B/P Pulse Ox O2 Delivery O2 Flow Rate FiO2 05/02/16 04:00 98.1 98 17 121/71 97 05/02/16 00:00 98.8 99 17 115/77 93 05/01/16 20:51 Nasal Cannula 2.00 05/01/16 20:00 99.5 109 18 113/73 94 05/01/16 19:04 102 05/01/16 16:00 99.6 102 20 121/83 92 05/01/16 10:05 94 Nasal Cannula 3.00 05/01/16 08:00 98.8 94 18 127/81 95 05/01/16 08:00 92 05/01/16 08:00 Nasal Cannula 3.00 I/O 05/01/16 05/01/16 05/01/16 05/02/16 05/02/16 05/02/16 07:00 15:00 23:00 07:00 15:00 23:00 Intake Total 240 ml Output Total 0 ml 2000 ml Balance 240 ml -2000 ml Intake Oral 240 ml Output Urine Total 0 ml Hemodialysis 2000 ml # Voids 1 1 # Bowel Movements 0 (Ariela Regan MD R2) Result Diagram: 05/01/16 1724 05/01/16 0825 Objective Remarks GEN: Thin AAF in obvious distress lying down in bed. CV: Regular rate and rhythm without obvious murmurs LUNGS: Clear to auscultation bilaterally with good air movement bilaterally. GI: Protuberant, improved tenderness to palpation. No voluntary guarding today. EXT: No edema. No calf tenderness. NEURO/PSYCH: Awake, alert. Appropriate insight and judgment. Normal speech ( Ariela Regan MD R2) A/P Assessment and Plan 40-year-old -[place] female with PMH of ESRD, HTN, HIV. Was admitted for C. difficile and peritonitis. Discharge Planning Timeline unknown at this time. Pending clinical improvement. Will need PT consult once acute symptoms improve dw Dr. Gaines wdw Dr. [facility] Attending Attestation Patient seen and examined. Case reviewed and discussed with the resident team. Agree with plan of care as discussed with me and documented in the resident note. (Mary Alice Nicole MD) Problem List: (1) SBP (spontaneous bacterial peritonitis) Status: Acute Plan: Found to have SBP with Enterobacter cloacae sensitive to ceftazidime. Despite treatment patient continues to have severe abdominal pain but has begun to slightly improve. Pt also found to have C diff, positive PCR. -Leukocytosis originally resolved on 04/26 but with a recent spike on 05/01, continue to monitor -Peritoneal fluids diagnostic of SBP with elevated absolute PMN >250 and positive culture. -Repeat peritoneal fluid analysis shows worsening WBC and RBC. Cultures showing gram-negative victor hugo, sensitivities and identification to follow. -Per Pt, Dr. Barrios may be removing Tenkhoff cath, with reach out to nephrology for clarification. Infectious disease consulted recommendations appreciated * Peritonitis related to peritoneal dialysis (Enterobacter - bush sensitive) * Continue Flagyl and ceftazidime * Started meropenem Imaging: * CT abdomen/pelvis 04/24: Multiple fluid-filled bowel loops. No obstruction. Large amount of abdominal ascites. * CT abdomen/pelvis 04/29:Equal changes and left lung base. Fluid and an abnormal with no free air.Dialysis catheter in good position. Retroperitoneum unremarkable. Extensive vascular calcifications noted. Osteoporotic bone with history of renal failure. No obvious etiology for patient's diffuse abdominal pain. Meds: * Flagyl 500mg PO q8H (04/25- * Cefazolin and Vanc started by IR, frequency unclear (05/01- * ceftazidime 1 g daily IP (04/26-05/01) * Meropenem 500mg daily (04/30- (2) End stage kidney disease Status: Chronic Plan: Patient history of end-stage renal disease. Now receiving hemodialysis Nephrology consulted: Appreciate recommendations * Continue to replace potassium, and calcium * Continue with phosphorus binders * Okay with removal of Tenkhoff cath * PermCath has been placed * Start hemodialysis (3) Clostridium difficile colitis Status: Acute Plan: -See above (peritonitis) (4) SOB (shortness of breath) Status: Resolved Plan: New-onset SOB that started on the evening of 04/27. Symptoms significantly improved since starting hemodialysis. -Incentive spirometry and acapella -Titrate O2 -CXR unremarkable (5) HIV (human immunodeficiency virus infection) Status: Chronic Plan: HIV medications recently adjusted and verified. HIV physician is Dr Sukumar Ojeda ([phone]). -Continue with current home HIV medications at this time. (6) Hypertension Status: Chronic Plan: Patient has a long-standing history of hypertension. * Holding patient's lisinopril * Continue labetalol 30 mg by mouth every 12 hours * Continue amlodipine 10 mg by mouth daily * Hydralazine IV when necessary elevated blood pressure (7) Nutrition, metabolism, and development symptoms Status: Acute Plan: Diet: Renal diet as tolerated Fluids: None Electrolytes: KCl 20 daily liquid, Tums, PhosLo DVT PPX: Heparin HELD 04/30 and SCDs GI PPX: Pepcid (Ariela Regan MD R2) Problem Qualifiers (1) Hypertension: Qualified Code: I15.1 - Hypertension secondary to other renal disorders Ariela Regan MD R2 May 02, 2016 07:27 Mary Alice Nicole MD May 02, 2016 14:52
[2016-05-02 08:00] VITALS: BP 133/85; PULSE 94; PULSE 98; RESP 18; TEMP 98.4; O2SAT 92
[2016-05-02 08:28] LABS: AUTOMATED NEUTROPHIL # 14.2 TH/MM3 (1.8-7.7); BASOPHIL # 0.1 TH/MM3 (0-0.2); BASOPHIL % 0.3 % (0.0-2.0); EOSINOPHIL # 0.1 TH/MM3 (0-0.4); EOSINOPHIL % 0.4 % (0.0-4.0); HEMATOCRIT 30.2 % (35.0-46.0); HEMO FLAGS DIFF FINAL; LYMPHOCYTE # 0.7 TH/MM3 (1.0-4.8); MEAN CELL VOLUME 99.1 FL (80.0-100.0); MEAN CORPUSCULAR HEMOGLOBIN 33.2 PG (27.0-34.0); MEAN CORPUSCULAR HGB CONC 33.5 % (32.0-36.0); MONO % 11.4 % (0.0-8.0); NEUT % 83.9 % (16.0-70.0); PLATELET COUNT 343 TH/MM3 (150-450); RED BLOOD COUNT 3.05 MIL/MM3 (4.00-5.30); RED CELL DISTRIBUTION WIDTH 14.9 % (11.6-17.2)
[2016-05-02] MEDS: CALCIUM ACETATE 667 MG CAP PO SCH ×3 (09:00→17:24)
[2016-05-02] MEDS: POTASSIUM CHLORIDE 20 MEQ PWD PACKET PO SCH ×2 (09:00→21:04)
[2016-05-02] MEDS: LABETALOL HCL 300 MG TAB PO SCH ×2 (09:00→21:03)
[2016-05-02] MEDS: LACTOBACILLUS ACIDOPHILUS TAB PO SCH ×3 (09:00→17:25)
[2016-05-02 09:15] LABS: BICARBONATE 26.1 MEQ/L (21.0-32.0); POTASSIUM 4.1 MEQ/L (3.5-5.1)
--- NOTE | 2016-05-02 09:26 | HHI.NPPN ---
Subjective History of Present Illness 40 year old female with ESRD C dif colitis gr neg peritonitis Review of Systems General Constitutional: Fatigue Gastrointestinal Gastrointestinal: Abdominal Pain Objective Data Data 05/01/16 05/02/16 19:00 07:00 Output Total 2000 ml Balance -2000 ml Hemodialysis 2000 ml # Voids 2 Vital Signs Date Time Temp Pulse Resp B/P Pulse Ox O2 Delivery O2 Flow Rate FiO2 05/02/16 08:00 98.4 98 18 133/85 92 05/02/16 04:00 98.1 98 17 121/71 97 05/02/16 00:00 98.8 99 17 115/77 93 05/01/16 20:51 Nasal Cannula 2.00 05/01/16 20:00 99.5 109 18 113/73 94 05/01/16 19:04 102 05/01/16 16:00 99.6 102 20 121/83 92 05/01/16 10:05 94 Nasal Cannula 3.00 -: 05/02/16 0702 05/01/16 0825 Physical Exam General Appearance: Well Developed Neck Neck Exam: Neck Supple Pulmonary Resp Exam: Clear Bilaterally Cardiology CV Exam: Regular Gastrointestinal/Abdomen GI Exam: Distended GI Remarks tender Neurologic Neuro Exam: Alert Assessment/Plan Problem List: (1) End stage kidney disease Plan: Patient is positive for C. difficile and is on metronidazole, gr Neg in PD fluid Enterobacter on Meropenem Repeat Cell count high c/o abdominal pain repeat culture going GN rods seen during HD 2 L UF Continue to wait for Tenkhoff removal reconsult Dr. Barrios (2) Abdominal pain Plan: Likely due to C. difficile colitis Peritonitis gram neg (3) Clostridium difficile colitis Plan: Positive PCR (4) H/O parathyroidectomy Plan: on calcium supplement and continue with phosphorus binders with Victor Manuel Farrar MD May 02, 2016 09:26
[2016-05-02 10:35] LABS: CALCIUM-PROTEIN CORRECTED 6.8 MG/DL (8.5-10.1)
[2016-05-02] MEDS: HEPARIN SODIUM - IV 10,000 UNITS/10 ML VIAL IVF PRN (11:54)
[2016-05-02] MEDS: GENTAMICIN SULFATE (DIALYSIS USE ONLY) 20 MG/2 ML VIAL IV PRN (11:54)
[2016-05-02] MEDS: SODIUM CHLORIDE 0.9% FLUSH 5 ML FLUSH FLUSH SCH ×2 (12:35→21:04)
[2016-05-02] MEDS: FAMOTIDINE 20 MG TAB PO SCH (12:35)
[2016-05-02] MEDS: MEROPENEM INJ 500 MG in SODIUM CHLORIDE 0.9% INJ 100 ML IV SCH (12:36)
--- NOTE | 2016-05-02 13:02 | HHI.IDPN ---
Subjective Subjective Remarks Notes reviewed Temps low grade Still with significant abdominal pain Started on HD yesterday Had HD again today PD cath removal for tomorrow PD fluid with Enterobacter again, now more resistant Repeat CT A/P no change; no mention of any bowel wall thickening; no oral contrast was given First Fluid C/S Enterobacter pansensitive No BM Antibiotics IP Fortaz Flagyl Meropenem Lines PIV Past Medical History ESRD HIV stable HTN Past Surgical History PD cath placement Allergies: Coded Allergies: Iron Dextran (Verified Allergy, Severe, IRON INJECTIONS, 04/24/16) PT STATES THEY HAVE NOW CHANGED BRANDS OF IRON & SHE IS ABLE TO TAKE THE NEW BRAND OF IRON Objective . Vital Signs Date Time Temp Pulse Resp B/P Pulse Ox O2 Delivery O2 Flow Rate FiO2 05/02/16 08:00 98.4 98 18 133/85 92 05/02/16 04:00 98.1 98 17 121/71 97 05/02/16 00:00 98.8 99 17 115/77 93 05/01/16 20:51 Nasal Cannula 2.00 05/01/16 20:00 99.5 109 18 113/73 94 05/01/16 19:04 102 05/01/16 16:00 99.6 102 20 121/83 92 05/01/16 05/01/16 05/02/16 15:00 23:00 07:00 Output Total 2000 ml Balance -2000 ml Hemodialysis 2000 ml # Voids 1 1 . Laboratory Tests Test 05/01/16 05/02/16 17:24 07:02 White Blood Count 16.7 TH/MM3 17.0 TH/MM3 Red Blood Count 3.16 MIL/MM3 3.05 MIL/MM3 Hemoglobin 10.6 GM/DL 10.1 GM/DL Hematocrit 31.0 % 30.2 % Mean Corpuscular Volume 98.3 FL 99.1 FL Mean Corpuscular Hemoglobin 33.5 PG 33.2 PG Mean Corpuscular Hemoglobin 34.1 % 33.5 % Concent Red Cell Distribution Width 14.5 % 14.9 % Platelet Count 366 TH/MM3 343 TH/MM3 Mean Platelet Volume 9.4 FL 9.4 FL Neutrophils (%) (Auto) 86.8 % 83.9 % Lymphocytes (%) (Auto) 2.7 % 4.0 % Monocytes (%) (Auto) 9.9 % 11.4 % Eosinophils (%) (Auto) 0.3 % 0.4 % Basophils (%) (Auto) 0.3 % 0.3 % Neutrophils # (Auto) 14.5 TH/MM3 14.2 TH/MM3 Lymphocytes # (Auto) 0.5 TH/MM3 0.7 TH/MM3 Monocytes # (Auto) 1.7 TH/MM3 1.9 TH/MM3 Eosinophils # (Auto) 0.0 TH/MM3 0.1 TH/MM3 Basophils # (Auto) 0.0 TH/MM3 0.1 TH/MM3 CBC Comment DIFF FINAL DIFF FINAL Differential Comment Laboratory Tests Test 05/01/16 05/02/16 08:25 07:02 Sodium Level 131 MEQ/L 134 MEQ/L Potassium Level 3.9 MEQ/L 4.1 MEQ/L Chloride Level 91 MEQ/L 92 MEQ/L Carbon Dioxide Level 25.2 MEQ/L 26.1 MEQ/L Anion Gap 15 MEQ/L 16 MEQ/L Blood Urea Nitrogen 75 MG/DL 77 MG/DL Creatinine 14.77 MG/DL 11.30 MG/DL Estimat Glomerular Filtration 3 ML/MIN 4 ML/MIN Rate Random Glucose 97 MG/DL 93 MG/DL Calcium Level 6.7 MG/DL 7.0 MG/DL Protein Corrected Calcium 6.7 MG/DL 6.8 MG/DL Total Bilirubin 0.7 MG/DL Aspartate Amino Transf 15 U/L (AST/SGOT) Alanine Aminotransferase 11 U/L (ALT/SGPT) Alkaline Phosphatase 75 U/L Total Protein 7.3 GM/DL 7.6 GM/DL Albumin 1.4 GM/DL Parathyroid Hormone (Intact) 137.5 PG/ML Microbiology Date/Time Procedure Status Source Growth 04/29/16 17:00 Gram Stain - Final Resulted Fluid Peritoneal Fluid 04/29/16 17:00 Body Fluid Culture - Preliminary Resulted Enterobacter Cloacae Imaging Chest X-Ray 04/28/16 0000 Signed Impressions: Service Date/Time: Thursday, April 28, 2016 08:13 - CONCLUSION: No acute cardiopulmonary disease identified. Sterling Krishnamurthy MD Abdomen/Pelvis CT 04/24/16 0000 Signed Impressions: Service Date/Time: Sunday, April 24, 2016 15:39 - CONCLUSION: 1. Multiple fluid-filled bowel loops. No obstruction. 2. Large amount of abdominal ascites. 3. Atrophic bilateral kidneys with numerous calcifications and cysts. Brandon Romero MD Physical Exam GENERAL: awake and alert, in no apparent distress. SKIN: Warm and dry. No rashes, ecchymoses or embolic lesions. HEENT: [place] conjunctivae. No scleral icterus. No injection or drainage. Moist oral mucosa. NECK: Supple, nontender, no meningeal signs. CARDIOVASCULAR: Regular rate and rhythm without murmurs, gallops, or rubs. RESPIRATORY: Clear to auscultation. Breath sounds equal bilaterally. No wheezes , rales, or rhonchi. GASTROINTESTINAL: Abdomen distended, hypoactive bowel sounds, with diffuse tenderness, has some guarding. PD cath site with no evidence of infection MUSCULOSKELETAL: Extremities without clubbing, cyanosis, or edema. No joint tenderness, or effusion. No calf tenderness. Negative Homans sign bilaterally. NEUROLOGICAL: Non-focal PSYCH: Normal affect, calm and cooperative LINE: PIV with no evidence of infection Assessment & Plan Remarks IMPRESSION Peritonitis with Enterobacter, PD related - worsening C difficile colitis, seems mild Persistent abdominal pain HIV, on HAART ESRD on PD RECOMMENDATION Continue Flagyl po for C diff colitis Stop IP Fortaz Change Merem to Avycaz - micro working up for possible [facility] Surgery sched tomorrow for removal of Tenckhoff cath Monitor progress D/W Avani Abarca MD May 02, 2016 13:02
[2016-05-02] MEDS: cefTAZidime/AVIBACTAM INJ 0.94 GM in SODIUM CHLORIDE 0.9% INJ 50 ML IV SCH (15:41)
[2016-05-02 16:00] VITALS: BP 115/67; PULSE 103; RESP 18; TEMP 98.4; O2SAT 93
[2016-05-02 20:00] VITALS: BP 103/68; PULSE 92; PULSE 97; RESP 16; TEMP 98.3; O2SAT 93
[2016-05-02] MEDS: DOLUTEGRAVIR SODIUM 50 MG TAB PO SCH (21:03)
[2016-05-02] MEDS: RILPIVIRINE 25 MG TAB PO SCH (21:04)
[2016-05-02] MEDS: ATORVASTATIN 10 MG TAB PO SCH (21:04)
[2016-05-03] VITALS (7 sets, daily range): BP systolic 99–120; BP diastolic 62–80; PULSE 88–103; RESP 16–20; TEMP 98.2–98.8; O2SAT 94–98
[2016-05-03] MEDS: cefTAZidime/AVIBACTAM INJ 0.94 GM in SODIUM CHLORIDE 0.9% INJ 50 ML IV SCH ×2 (02:12→15:36)
[2016-05-03] MEDS: HYDROmorphone HCL PF 1 MG/ML VIAL IV PUSH PRN ×4 (02:12→22:55)
[2016-05-03] MEDS: CALCIUM CARBONATE 500 MG CHEWABLE TAB CHEW SCH ×6 (02:13→22:56)
[2016-05-03] MEDS: HYDROmorphone HCL 2 MG TAB PO PRN ×3 (05:36→20:13)
[2016-05-03] MEDS: metroNIDAZOLE 500 MG TAB PO SCH ×3 (05:36→22:55)
[2016-05-03 07:49] LABS: AUTOMATED NEUTROPHIL # 18.9 TH/MM3 (1.8-7.7); BASOPHIL % 0.2 % (0.0-2.0); EOSINOPHIL # 0.1 TH/MM3 (0-0.4); EOSINOPHIL % 0.6 % (0.0-4.0); HEMATOCRIT 29.7 % (35.0-46.0); LYMPH % 3.1 % (9.0-44.0); LYMPHOCYTE # 0.7 TH/MM3 (1.0-4.8); MEAN CELL VOLUME 99.8 FL (80.0-100.0); MEAN CORPUSCULAR HEMOGLOBIN 32.5 PG (27.0-34.0); MEAN CORPUSCULAR HGB CONC 32.5 % (32.0-36.0); MONO % 11.5 % (0.0-8.0); NEUT % 84.6 % (16.0-70.0); PLATELET COUNT 334 TH/MM3 (150-450); RED BLOOD COUNT 2.98 MIL/MM3 (4.00-5.30); WHITE BLOOD COUNT 22.3 TH/MM3 (4.0-11.0)
[2016-05-03 07:59] LABS: HEMO FLAGS AUTO DIFF
[2016-05-03 08:11] LABS: POTASSIUM 3.9 MEQ/L (3.5-5.1)
[2016-05-03] MEDS: CALCIUM ACETATE 667 MG CAP PO SCH ×3 (08:35→15:36)
[2016-05-03] MEDS: SODIUM CHLORIDE 0.9% FLUSH 5 ML FLUSH FLUSH SCH ×2 (08:37→20:14)
[2016-05-03] MEDS: FAMOTIDINE 20 MG TAB PO SCH (08:37)
[2016-05-03] MEDS: LACTOBACILLUS ACIDOPHILUS TAB PO SCH ×3 (08:37→15:40)
[2016-05-03 08:56] LABS: EOSINOPHILS 1 % (0-4); NEUTROPHIL # MANUAL DIFF 20.1 TH/MM3 (1.8-7.7); POLYS (SEG NEUTROPHILS) 90 % (16-70); WBC DIFF SAMPLE 100
[2016-05-03 08:57] LABS: PLATELET ESTIMATE SMEAR NORMAL (NORMAL); PLATELET MORPHOLOGY NORMAL (NORMAL); SCAN/DIFF FINAL DIFF MANUAL; TARGET CELLS 1+ (NORMAL)
[2016-05-03] MEDS: LABETALOL HCL 300 MG TAB PO SCH ×2 (09:00→20:13)
[2016-05-03] MEDS: POTASSIUM CHLORIDE 20 MEQ PWD PACKET PO SCH ×2 (09:00→21:00)
[2016-05-03 09:17] LABS: CALCIUM-PROTEIN CORRECTED 6.9 MG/DL (8.5-10.1)
[2016-05-03] MEDS ORDERED: PROPOFOL 200 MG/20 ML AMP IV ONE (12:00)
--- NOTE | 2016-05-03 12:17 | HHI.FPPN ---
Subjective Remarks Patient seen and examined this morning. No acute events overnight with mild tachycardia. Patient sitting up in bed and states she is feeling much better today. She was NPO overnight in preparation for her removal of the Tenkhoff catheter. She has no new complaints and denies any fevers, cough, SOB, chest pain, NVD, or calf tenderness. (Candelario Gaines MD R1) Objective Vitals Vital Signs Date Time Temp Pulse Resp B/P Pulse Ox O2 Delivery O2 Flow Rate FiO2 05/03/16 09:10 18 05/03/16 08:00 98.3 88 20 102/65 96 05/03/16 04:00 98.3 92 18 101/65 94 05/03/16 00:00 98.2 96 16 99/62 95 05/02/16 20:00 98.3 92 16 103/68 93 05/02/16 20:00 Nasal Cannula 3.00 05/02/16 20:00 97 05/02/16 16:00 98.4 103 18 115/67 93 I/O 05/02/16 05/02/16 05/02/16 05/03/16 05/03/16 05/03/16 07:00 15:00 23:00 07:00 15:00 23:00 Intake Total 360 ml 120 ml 0 ml Output Total 1500 ml Balance -1140 ml 120 ml 0 ml Intake Oral 360 ml 120 ml 0 ml Hemodialysis 1500 ml # Voids 1 0 1 2 # Bowel Movements 0 0 1 (Candelario Gaines MD R1) Result Diagram: 05/03/16 0629 05/03/16 0629 Objective Remarks GEN: Thin AAF in obvious distress lying down in bed. CV: Regular rate and rhythm without obvious murmurs LUNGS: Clear to auscultation bilaterally with good air movement bilaterally. GI: Protuberant, improved tenderness to palpation. No voluntary guarding today. EXT: No edema. No calf tenderness. NEURO/PSYCH: Awake, alert. Appropriate insight and judgment. Normal speech ( Candelario Gaines MD R1) A/P Assessment and Plan 40-year-old -[place] female with PMH of ESRD, HTN, HIV. Was admitted for C. difficile and peritonitis. Discharge Planning Timeline unknown at this time. Pending clinical improvement. Will need PT consult once acute symptoms improve DW: Dr. Nicole and Dr. Wilson (Candelario Gaines MD R1) Attending Attestation Patient seen and examined. Case reviewed and discussed with the resident team. Agree with plan of care as discussed with me and documented in the resident note. (Mary Alice Nicole MD) Problem List: (1) SBP (spontaneous bacterial peritonitis) Status: Acute Plan: Found to have SBP with Enterobacter cloacae sensitive to ceftazidime. Despite treatment patient continues to have severe abdominal pain but has begun to slightly improve. Pt also found to have C diff, positive PCR. -Leukocytosis originally resolved on 04/26 but with a recent spike on 05/01, continue to monitor -Peritoneal fluids diagnostic of SBP with elevated absolute PMN >250 and positive culture. -Repeat peritoneal fluid analysis shows worsening WBC and RBC. Cultures showing Enterobacter cloacae with resistance to multiple ABX. -Per Pt, Dr. Barrios, removal of Tenkhoff catheter scheduled for today Infectious disease consulted recommendations appreciated * Peritonitis related to peritoneal dialysis (Enterobacter - bush sensitive) * Continue Flagyl and ceftazidime Imaging: * CT abdomen/pelvis 04/24: Multiple fluid-filled bowel loops. No obstruction. Large amount of abdominal ascites. * CT abdomen/pelvis 04/29:Equal changes and left lung base. Fluid and an abnormal with no free air.Dialysis catheter in good position. Retroperitoneum unremarkable. Extensive vascular calcifications noted. Osteoporotic bone with history of renal failure. No obvious etiology for patient's diffuse abdominal pain. Meds: * Flagyl 500mg PO q8H (04/25- * Ceftriaxone 2g (04/24-04/26) * Cefazolin and Vanc (05/01- * ceftazidime 1 g daily IP (04/26-05/01) * Meropenem 500mg daily (04/30-05/02) (2) End stage kidney disease Status: Chronic Plan: Patient history of end-stage renal disease. Now receiving hemodialysis Nephrology consulted: Appreciate recommendations * Continue to replace potassium, and calcium; patient currently refusing * Continue with phosphorus binders * Tenkhoff cath scheduled for today * PermCath has been placed * Start hemodialysis (3) Clostridium difficile colitis Status: Acute Plan: -See above (peritonitis) (4) SOB (shortness of breath) Status: Resolved Plan: New-onset SOB that started on the evening of 04/27. Symptoms significantly improved since starting hemodialysis. -Incentive spirometry and acapella -Titrate O2 -CXR unremarkable (5) HIV (human immunodeficiency virus infection) Status: Chronic Plan: HIV medications recently adjusted and verified. HIV physician is Dr Sukumar Ojeda ([phone]). -Continue with current home HIV medications at this time. (6) Hypertension Status: Chronic Plan: Patient has a long-standing history of hypertension. * Holding patient's lisinopril * Continue labetalol 30 mg by mouth every 12 hours * Continue amlodipine 10 mg by mouth daily * Hydralazine IV when necessary elevated blood pressure (7) Nutrition, metabolism, and development symptoms Status: Acute Plan: Diet: Renal diet as tolerated Fluids: None Electrolytes: KCl 20 daily liquid, Tums, PhosLo DVT PPX: Heparin HELD 04/30 and SCDs GI PPX: Pepcid (Candelario Gaines MD R1) Problem Qualifiers (1) Hypertension: Qualified Code: I15.1 - Hypertension secondary to other renal disorders Candelario Gaines MD R1 May 03, 2016 12:16 Mary Alice Nicole MD May 03, 2016 19:21
[2016-05-03] MEDS ORDERED: BUPIVACAINE/EPINEPHRINE 0.5% PF 30 ML VIAL ONE (12:30)
--- NOTE | 2016-05-03 13:46 | HHI.NPPN ---
Subjective History of Present Illness 40 year old female with ESRD C dif colitis gr neg peritonitis Review of Systems General Constitutional: Fatigue Gastrointestinal Gastrointestinal: Abdominal Pain Objective Data Data 05/02/16 05/03/16 19:00 07:00 Intake Total 360 ml 120 ml Output Total 1500 ml Balance -1140 ml 120 ml Intake Oral 360 ml 120 ml Hemodialysis 1500 ml # Voids 0 3 # Bowel Movements 0 1 Vital Signs Date Time Temp Pulse Resp B/P Pulse Ox O2 Delivery O2 Flow Rate FiO2 05/03/16 09:30 96 21 05/03/16 09:10 18 05/03/16 08:00 98.3 88 20 102/65 96 05/03/16 04:00 98.3 92 18 101/65 94 05/03/16 00:00 98.2 96 16 99/62 95 05/02/16 20:00 98.3 92 16 103/68 93 05/02/16 20:00 Nasal Cannula 3.00 05/02/16 20:00 97 05/02/16 16:00 98.4 103 18 115/67 93 -: 05/03/16 0629 05/03/16 0629 Physical Exam General Appearance: Well Developed Neck Neck Exam: Neck Supple Pulmonary Resp Exam: Clear Bilaterally Cardiology CV Exam: Regular Gastrointestinal/Abdomen GI Exam: Distended GI Remarks tender Neurologic Neuro Exam: Alert Assessment/Plan Problem List: (1) End stage kidney disease Plan: Patient is positive for C. difficile and is on metronidazole, gr Neg in PD fluid Enterobacter on Ceftazidime Repeat Cell count high c/o abdominal pain repeat culture positive Gr neg Enterobacter seen during HD 2 L UF Tenkhoff removal by Dr. Barrios (2) Abdominal pain Plan: Likely due to C. difficile colitis Peritonitis gram neg (3) Clostridium difficile colitis Plan: Positive PCR (4) H/O parathyroidectomy Plan: on calcium supplement and continue with phosphorus binders with Victor Manuel Farrar MD May 03, 2016 13:46
[2016-05-03] MEDS ORDERED: DO NOT ADM ANY ANTICOAGULANT DRUGS XX PRN (14:15)
[2016-05-03] MEDS ORDERED: KETAMINE HCL 500 MG/5 ML VIAL ONE (14:56)
[2016-05-03] MEDS ORDERED: MIDAZOLAM HCL 2 MG/2 ML VIAL ONE (14:56)
[2016-05-03] MEDS ORDERED: ACETAMINOPHEN 325 MG TAB PO PRN (15:15)
--- NOTE | 2016-05-03 15:22 | HHI.IDPN ---
Subjective Subjective Remarks Notes reviewed Temps low grade Had removal of Tenckhoff cath today Cough x 2 days, white phlegm C/O abdominal pain Started on HD yesterday Had HD again today PD cath removal for tomorrow PD fluid with Enterobacter again, now more resistant Repeat CT A/P no change; no mention of any bowel wall thickening; no oral contrast was given First Fluid C/S Enterobacter pansensitive No BM Antibiotics Flagyl Avycaz Lines PIV Past Medical History ESRD HIV stable HTN Past Surgical History PD cath placement Allergies: Coded Allergies: Iron Dextran (Verified Allergy, Severe, IRON INJECTIONS, 04/24/16) PT STATES THEY HAVE NOW CHANGED BRANDS OF IRON & SHE IS ABLE TO TAKE THE NEW BRAND OF IRON Objective . Vital Signs Date Time Temp Pulse Resp B/P Pulse Ox O2 Delivery O2 Flow Rate FiO2 05/03/16 14:45 98.7 88 18 110/73 97 Nasal Cannula 2 05/03/16 14:30 89 18 110/71 97 Nasal Cannula 2 05/03/16 14:15 98.7 92 20 104/72 98 Nasal Cannula 2 05/03/16 12:00 98.2 93 20 110/66 95 05/03/16 09:30 96 21 05/03/16 09:10 18 05/03/16 08:30 Nasal Cannula 3.00 21 05/03/16 08:00 98.3 88 20 102/65 96 05/03/16 04:00 98.3 92 18 101/65 94 05/03/16 00:00 98.2 96 16 99/62 95 05/02/16 20:00 98.3 92 16 103/68 93 05/02/16 20:00 Nasal Cannula 3.00 05/02/16 20:00 97 05/02/16 16:00 98.4 103 18 115/67 93 05/02/16 05/02/16 05/03/16 15:00 23:00 07:00 Intake Total 360 ml 120 ml 0 ml Output Total 1500 ml Balance -1140 ml 120 ml 0 ml Intake Oral 360 ml 120 ml 0 ml Hemodialysis 1500 ml # Voids 0 1 2 # Bowel Movements 0 0 1 . Laboratory Tests Test 05/01/16 05/02/16 05/03/16 17:24 07:02 06:29 White Blood Count 16.7 TH/MM3 17.0 TH/MM3 22.3 TH/MM3 Red Blood Count 3.16 MIL/MM3 3.05 MIL/MM3 2.98 MIL/MM3 Hemoglobin 10.6 GM/DL 10.1 GM/DL 9.7 GM/DL Hematocrit 31.0 % 30.2 % 29.7 % Mean Corpuscular Volume 98.3 FL 99.1 FL 99.8 FL Mean Corpuscular Hemoglobin 33.5 PG 33.2 PG 32.5 PG Mean Corpuscular Hemoglobin 34.1 % 33.5 % 32.5 % Concent Red Cell Distribution Width 14.5 % 14.9 % 15.0 % Platelet Count 366 TH/MM3 343 TH/MM3 334 TH/MM3 Mean Platelet Volume 9.4 FL 9.4 FL 8.9 FL Neutrophils (%) (Auto) 86.8 % 83.9 % 84.6 % Lymphocytes (%) (Auto) 2.7 % 4.0 % 3.1 % Monocytes (%) (Auto) 9.9 % 11.4 % 11.5 % Eosinophils (%) (Auto) 0.3 % 0.4 % 0.6 % Basophils (%) (Auto) 0.3 % 0.3 % 0.2 % Neutrophils # (Auto) 14.5 TH/MM3 14.2 TH/MM3 18.9 TH/MM3 Lymphocytes # (Auto) 0.5 TH/MM3 0.7 TH/MM3 0.7 TH/MM3 Monocytes # (Auto) 1.7 TH/MM3 1.9 TH/MM3 2.6 TH/MM3 Eosinophils # (Auto) 0.0 TH/MM3 0.1 TH/MM3 0.1 TH/MM3 Basophils # (Auto) 0.0 TH/MM3 0.1 TH/MM3 0.0 TH/MM3 CBC Comment DIFF FINAL DIFF FINAL AUTO DIFF Differential Comment FINAL DIFF MANUAL Differential Total Cells 100 Counted Neutrophils % (Manual) 90 % Lymphocytes % 1 % Monocytes % 8 % Eosinophils % 1 % Neutrophils # (Manual) 20.1 TH/MM3 Platelet Estimate NORMAL Platelet Morphology Comment NORMAL Target Cells 1+ Laboratory Tests Test 05/02/16 05/03/16 07:02 06:29 Sodium Level 134 MEQ/L 135 MEQ/L Potassium Level 4.1 MEQ/L 3.9 MEQ/L Chloride Level 92 MEQ/L 94 MEQ/L Carbon Dioxide Level 26.1 MEQ/L 27.0 MEQ/L Anion Gap 16 MEQ/L 14 MEQ/L Blood Urea Nitrogen 77 MG/DL 59 MG/DL Creatinine 11.30 MG/DL 8.57 MG/DL Estimat Glomerular Filtration 4 ML/MIN 6 ML/MIN Rate Random Glucose 93 MG/DL 94 MG/DL Calcium Level 7.0 MG/DL 7.2 MG/DL Protein Corrected Calcium 6.8 MG/DL 6.9 MG/DL Total Protein 7.6 GM/DL 7.9 GM/DL Imaging Chest X-Ray 04/28/16 0000 Signed Impressions: Service Date/Time: Thursday, April 28, 2016 08:13 - CONCLUSION: No acute cardiopulmonary disease identified. Sterling Krishnamurthy MD Abdomen/Pelvis CT 04/24/16 0000 Signed Impressions: Service Date/Time: Sunday, April 24, 2016 15:39 - CONCLUSION: 1. Multiple fluid-filled bowel loops. No obstruction. 2. Large amount of abdominal ascites. 3. Atrophic bilateral kidneys with numerous calcifications and cysts. Brandon Romero MD Physical Exam GENERAL: awake and alert, in no apparent distress. Has weak moist cough SKIN: Warm and dry. No rashes, ecchymoses or embolic lesions. HEENT: [place] conjunctivae. No scleral icterus. No injection or drainage. Moist oral mucosa. NECK: Supple, nontender, no meningeal signs. CARDIOVASCULAR: Regular rate and rhythm without murmurs, gallops, or rubs. RESPIRATORY: Clear to auscultation. Breath sounds equal bilaterally. No wheezes , rales, or rhonchi. GASTROINTESTINAL: Abdomen distended, hypoactive bowel sounds, with diffuse tenderness, has some guarding. Dry dressing in place. MUSCULOSKELETAL: Extremities without clubbing, cyanosis, or edema. No joint tenderness, or effusion. No calf tenderness. NEUROLOGICAL: Non-focal PSYCH: Normal affect, calm and cooperative [facility] Assessment & Plan Remarks IMPRESSION Peritonitis with Enterobacter, PD related - worsening - S/P removal of PD cath - Enterobacter becomng resistant C difficile colitis, seems mild Persistent abdominal pain HIV, on HAART ESRD on PD RECOMMENDATION Continue Flagyl po for C diff colitis Continue Avycaz - micro working up for possible KPC CXR to evaluate cough Monitor progress D/W RN Spoke with micro - they will do sensis on Avycaz Avani Blackwell MD May 03, 2016 15:22
--- NOTE | 2016-05-03 18:00 | RADRPT ---
EXAM DATE/TIME: 05/03/2016 17:40 [facility] COMPARISON: CHEST SINGLE AP, April 28, 2016, 8:13. INDICATIONS : Cough for 3 days MEDICAL HISTORY : Renal failure, chronic. Gastroesophageal reflux disease. Hypertension SURGICAL HISTORY : Hysterectomy. ENCOUNTER: Initial ACUITY: 3 days PAIN SCORE: 0/10 LOCATION: Bilateral chest FINDINGS: Dialysis catheter is present in good position. Lungs are stable in appearance with minimal parenchyma l opacity at the left base. Right lung is clear. No significant effusion. Cardiomediastinal contours are satisfactory. CONCLUSION: Mild left base infiltrate. Chet Chairez MD on May 03, 2016 at 17:57 Board Certified Radiologist. This report was verified electronically.
[2016-05-03] MEDS: ATORVASTATIN 10 MG TAB PO SCH (20:13)
[2016-05-03] MEDS: DOLUTEGRAVIR SODIUM 50 MG TAB PO SCH (20:13)
[2016-05-03] MEDS: RILPIVIRINE 25 MG TAB PO SCH (20:14)
[2016-05-04] VITALS: BP_SYST 102; BP_SYST 120; BP_DIAS 66; BP_DIAS 80; PULSE 105; PULSE 88; RESP 18; TEMP 97.8; TEMP 98.7; O2SAT 95; O2SAT 96
[2016-05-04 04:00] VITALS: BP 107/65; PULSE 87; RESP 18; TEMP 98.8; O2SAT 95
[2016-05-04] MEDS: CALCIUM CARBONATE 500 MG CHEWABLE TAB CHEW SCH ×5 (04:00→20:00)
[2016-05-04] MEDS: metroNIDAZOLE 500 MG TAB PO SCH ×3 (04:01→20:12)
[2016-05-04] MEDS: HYDROmorphone HCL 2 MG TAB PO PRN ×4 (04:01→23:02)
[2016-05-04] MEDS: cefTAZidime/AVIBACTAM INJ 0.94 GM in SODIUM CHLORIDE 0.9% INJ 50 ML IV SCH ×2 (04:02→14:52)
[2016-05-04 07:04] LABS: HEMATOCRIT 26.9 % (35.0-46.0); MEAN CELL VOLUME 98.4 FL (80.0-100.0); MEAN CORPUSCULAR HEMOGLOBIN 33.1 PG (27.0-34.0); MEAN CORPUSCULAR HGB CONC 33.6 % (32.0-36.0); PLATELET COUNT 323 TH/MM3 (150-450); RED BLOOD COUNT 2.74 MIL/MM3 (4.00-5.30); RED CELL DISTRIBUTION WIDTH 15.2 % (11.6-17.2); REVIEW FLAG FINAL; WHITE BLOOD COUNT 23.5 TH/MM3 (4.0-11.0)
[2016-05-04 07:34] LABS: POTASSIUM 4.3 MEQ/L (3.5-5.1)
[2016-05-04 08:00] VITALS: BP 104/69; PULSE 88; RESP 20; TEMP 98; O2SAT 96
[2016-05-04 08:19] LABS: CALCIUM-PROTEIN CORRECTED 6.8 MG/DL (8.5-10.1)
[2016-05-04] MEDS: LACTOBACILLUS ACIDOPHILUS TAB PO SCH ×3 (09:00→17:26)
[2016-05-04] MEDS: POTASSIUM CHLORIDE 20 MEQ PWD PACKET PO SCH ×2 (09:00→20:12)
[2016-05-04] MEDS: CALCIUM ACETATE 667 MG CAP PO SCH ×3 (09:00→17:27)
--- NOTE | 2016-05-04 10:28 | HHI.NPPN ---
Subjective History of Present Illness 40 year old female with ESRD C dif colitis gr neg peritonitis Additional Remarks Patient seen on HD, no SOB, no abd. pain. Review of Systems General Constitutional: Fatigue Gastrointestinal Gastrointestinal: Abdominal Pain Objective Data Data 05/03/16 05/04/16 19:00 07:00 Intake Total 255 ml 460 ml Output Total 20 ml Balance 235 ml 460 ml Intake Oral 0 ml 360 ml IV Total 5 ml 100 ml Other 250 ml Output Urine Total 0 ml Estimated Blood Loss 20 ml # Voids 0 # Bowel Movements 3 Vital Signs Date Time Temp Pulse Resp B/P Pulse Ox O2 Delivery O2 Flow Rate FiO2 05/04/16 04:00 98.8 87 18 107/65 95 05/04/16 00:08 Nasal Cannula 3.00 05/04/16 00:00 97.8 88 18 102/66 96 05/03/16 20:00 98.7 103 18 120/80 95 05/03/16 20:00 Nasal Cannula 3.00 05/03/16 16:14 18 05/03/16 16:00 98.8 94 20 114/73 98 05/03/16 14:45 98.7 88 18 110/73 97 Nasal Cannula 2 05/03/16 14:30 89 18 110/71 97 Nasal Cannula 2 05/03/16 14:15 98.7 92 20 104/72 98 Nasal Cannula 2 05/03/16 12:00 98.2 93 20 110/66 95 -: 05/04/16 0630 05/04/16 0630 Physical Exam General Appearance: No Acute Distress, Comfortable Neck Neck Exam: Neck Supple Pulmonary Resp Exam: Breath Sounds Equal, Decreased Bases Cardiology CV Exam: Regular Gastrointestinal/Abdomen GI Exam: Soft, Non-Tender, Distended Neurologic Neuro Exam: Alert, Awake Assessment/Plan Problem List: (1) End stage kidney disease Plan: Patient is positive for C. difficile and is on metronidazole, gr Neg in PD fluid Enterobacter on Ceftazidime Repeat Cell count high c/o abdominal pain repeat culture positive Gr neg Enterobacter now on HD, PD Catheter removed. Continue antibiotics as per ID. WBC still increasing. (2) Abdominal pain Plan: Likely due to C. difficile colitis Peritonitis gram neg (3) Clostridium difficile colitis Plan: Positive PCR (4) H/O parathyroidectomy Plan: on calcium supplement and continue with phosphorus binders with Christiano Ruiz MD May 04, 2016 10:28
[2016-05-04] MEDS: HEPARIN SODIUM - IV 10,000 UNITS/10 ML VIAL IVF PRN (11:23)
[2016-05-04] MEDS: EPOETIN ALFA 10,000 UNITS/ML VIAL IV PRN (11:23)
[2016-05-04] MEDS: GENTAMICIN SULFATE (DIALYSIS USE ONLY) 20 MG/2 ML VIAL IV PRN (11:23)
[2016-05-04] MEDS: FAMOTIDINE 20 MG TAB PO SCH (12:15)
[2016-05-04] MEDS: LABETALOL HCL 300 MG TAB PO SCH ×2 (12:15→20:12)
[2016-05-04] MEDS: SODIUM CHLORIDE 0.9% FLUSH 5 ML FLUSH FLUSH SCH ×2 (12:17→20:19)
--- NOTE | 2016-05-04 12:26 | HHI.IDPN ---
Subjective Subjective Remarks Notes reviewed Temps ok Had removal of Tenckhoff cath 05/03 Abdominal pain is better Had HD todat Cough same CXR with mild L base infiltrate WBC elevated Antibiotics Flagyl Avycaz Lines PIV Past Medical History ESRD HIV stable HTN Past Surgical History PD cath placement Allergies: Coded Allergies: Iron Dextran (Verified Allergy, Severe, IRON INJECTIONS, 04/24/16) PT STATES THEY HAVE NOW CHANGED BRANDS OF IRON & SHE IS ABLE TO TAKE THE NEW BRAND OF IRON Objective . Vital Signs Date Time Temp Pulse Resp B/P Pulse Ox O2 Delivery O2 Flow Rate FiO2 05/04/16 04:00 98.8 87 18 107/65 95 05/04/16 00:08 Nasal Cannula 3.00 05/04/16 00:00 97.8 88 18 102/66 96 05/03/16 20:00 98.7 103 18 120/80 95 05/03/16 20:00 Nasal Cannula 3.00 05/03/16 16:14 18 05/03/16 16:00 98.8 94 20 114/73 98 05/03/16 14:45 98.7 88 18 110/73 97 Nasal Cannula 2 05/03/16 14:30 89 18 110/71 97 Nasal Cannula 2 05/03/16 14:15 98.7 92 20 104/72 98 Nasal Cannula 2 05/03/16 05/03/16 05/04/16 15:00 23:00 07:00 Intake Total 255 ml 410 ml 50 ml Output Total 20 ml Balance 235 ml 410 ml 50 ml Intake Oral 0 ml 360 ml IV Total 5 ml 50 ml 50 ml Other 250 ml Output Urine Total 0 ml Estimated Blood Loss 20 ml # Voids 0 # Bowel Movements 3 . Laboratory Tests Test 05/03/16 05/04/16 06:29 06:30 White Blood Count 22.3 TH/MM3 23.5 TH/MM3 Red Blood Count 2.98 MIL/MM3 2.74 MIL/MM3 Hemoglobin 9.7 GM/DL 9.1 GM/DL Hematocrit 29.7 % 26.9 % Mean Corpuscular Volume 99.8 FL 98.4 FL Mean Corpuscular Hemoglobin 32.5 PG 33.1 PG Mean Corpuscular Hemoglobin 32.5 % 33.6 % Concent Red Cell Distribution Width 15.0 % 15.2 % Platelet Count 334 TH/MM3 323 TH/MM3 Mean Platelet Volume 8.9 FL 9.0 FL Neutrophils (%) (Auto) 84.6 % Lymphocytes (%) (Auto) 3.1 % Monocytes (%) (Auto) 11.5 % Eosinophils (%) (Auto) 0.6 % Basophils (%) (Auto) 0.2 % Neutrophils # (Auto) 18.9 TH/MM3 Lymphocytes # (Auto) 0.7 TH/MM3 Monocytes # (Auto) 2.6 TH/MM3 Eosinophils # (Auto) 0.1 TH/MM3 Basophils # (Auto) 0.0 TH/MM3 CBC Comment AUTO DIFF Differential Total Cells 100 Counted Neutrophils % (Manual) 90 % Lymphocytes % 1 % Monocytes % 8 % Eosinophils % 1 % Neutrophils # (Manual) 20.1 TH/MM3 Differential Comment FINAL DIFF MANUAL Platelet Estimate NORMAL Platelet Morphology Comment NORMAL Target Cells 1+ Laboratory Tests Test 05/03/16 05/04/16 06:29 06:30 Sodium Level 135 MEQ/L 137 MEQ/L Potassium Level 3.9 MEQ/L 4.3 MEQ/L Chloride Level 94 MEQ/L 97 MEQ/L Carbon Dioxide Level 27.0 MEQ/L 24.0 MEQ/L Anion Gap 14 MEQ/L 16 MEQ/L Blood Urea Nitrogen 59 MG/DL 89 MG/DL Creatinine 8.57 MG/DL 11.59 MG/DL Estimat Glomerular Filtration 6 ML/MIN 4 ML/MIN Rate Random Glucose 94 MG/DL 101 MG/DL Calcium Level 7.2 MG/DL 6.9 MG/DL Protein Corrected Calcium 6.9 MG/DL 6.8 MG/DL Total Protein 7.9 GM/DL 7.5 GM/DL Imaging Chest X-Ray 04/28/16 0000 Signed Impressions: Service Date/Time: Thursday, April 28, 2016 08:13 - CONCLUSION: No acute cardiopulmonary disease identified. Sterling Krishnamurthy MD Abdomen/Pelvis CT 04/24/16 0000 Signed Impressions: Service Date/Time: Sunday, April 24, 2016 15:39 - CONCLUSION: 1. Multiple fluid-filled bowel loops. No obstruction. 2. Large amount of abdominal ascites. 3. Atrophic bilateral kidneys with numerous calcifications and cysts. Brandon Romero MD Physical Exam GENERAL: awake and alert, NAD. Has weak moist cough SKIN: Warm and dry. No rashes, ecchymoses or embolic lesions. HEENT: [place] conjunctivae. No scleral icterus. No injection or drainage. Moist oral mucosa. NECK: Supple, nontender, no meningeal signs. CARDIOVASCULAR: Regular rate and rhythm without murmurs, gallops, or rubs. RESPIRATORY: Clear to auscultation. Breath sounds equal bilaterally. No wheezes , rales, or rhonchi. GASTROINTESTINAL: Abdomen distended, hypoactive bowel sounds, with mild tenderness. Dry dressing in place. MUSCULOSKELETAL: Extremities without clubbing, cyanosis, or edema. No calf tenderness. NEUROLOGICAL: Non-focal PSYCH: Normal affect, calm and cooperative LINE: Permacath site ok Assessment & Plan Remarks IMPRESSION Peritonitis with Enterobacter, PD related - worsening - S/P removal of PD cath - Enterobacter becomng resistant C difficile colitis, seems mild Leukocytosis Cough, has mild L base infiltrate HIV, on HAART ESRD on PD RECOMMENDATION Continue Flagyl po for C diff colitis Continue Avycaz - micro working up for possible KPC Add levaquin Sputum G/S C/S Follow CBC Monitor progress Avani Blackwell MD May 04, 2016 12:26
--- NOTE | 2016-05-04 12:28 | HHI.FPPN ---
Subjective Remarks `Saw Ms Wynn in dialysis. She reports feeling improved overall and has less pain and weakness. She reports eating a bit better as well and per Dr Guerrero Wilson she is clinically improving. Objective Vitals Vital Signs Date Time Temp Pulse Resp B/P Pulse Ox O2 Delivery O2 Flow Rate FiO2 05/04/16 04:00 98.8 87 18 107/65 95 05/04/16 00:08 Nasal Cannula 3.00 05/04/16 00:00 97.8 88 18 102/66 96 05/03/16 20:00 98.7 103 18 120/80 95 05/03/16 20:00 Nasal Cannula 3.00 05/03/16 16:14 18 05/03/16 16:00 98.8 94 20 114/73 98 05/03/16 14:45 98.7 88 18 110/73 97 Nasal Cannula 2 05/03/16 14:30 89 18 110/71 97 Nasal Cannula 2 05/03/16 14:15 98.7 92 20 104/72 98 Nasal Cannula 2 I/O 05/03/16 05/03/16 05/03/16 05/04/16 05/04/16 05/04/16 07:00 15:00 23:00 07:00 15:00 23:00 Intake Total 0 ml 255 ml 410 ml 50 ml Output Total 20 ml 2000 ml Balance 0 ml 235 ml 410 ml 50 ml -2000 ml Intake Oral 0 ml 0 ml 360 ml IV Total 5 ml 50 ml 50 ml Other 250 ml Output Urine Total 0 ml Hemodialysis 2000 ml Estimated Blood Loss 20 ml # Voids 2 0 # Bowel Movements 1 3 Result Diagram: 05/04/1630 05/04/1630 Objective Remarks GEN: Thin AAF in no obvious distress lying down in bed getting hemodialysis during her exam. CV: Regular rate and rhythm without obvious murmurs LUNGS: Clear to auscultation bilaterally with good air movement bilaterally. not able to listen posteriorly with her dialysis catheter in her right chest but no signs of respiratory distress. GI: Protuberant, no tenderness to palpation. No voluntary guarding today. soft EXT: No edema. No calf tenderness. NEURO/PSYCH: Awake, alert. Appropriate insight and judgment. Normal speech A/P Assessment and Plan 40-year-old -[place]er female with PMH of ESRD, HTN, HIV. Was admitted for C. difficile and peritonitis. Discharge Planning Timeline unknown at this time. Pending clinical improvement. Will need PT consult once acute symptoms improve. Problem List: (1) SBP (spontaneous bacterial peritonitis) Status: Acute Plan: Found to have SBP with Enterobacter cloacae sensitive to ceftazidime. Despite treatment patient continued to have severe abdominal pain but has begun to improve and has no big complaint today of abdominal pain. Pt also found to have C diff, positive PCR. -Leukocytosis originally resolved on 04/26 but with a recent spike on 05/01, continue to monitor. Unsure if elevated WBC possibly due to C diff as that can increase the WBC. Per Dr Wilson, she is clinically much improved and has no fevers today and less to no pain. -Peritoneal fluids diagnostic of SBP with elevated absolute PMN >250 and positive culture. -Repeat peritoneal fluid analysis shows worsening WBC and RBC. Cultures showing Enterobacter cloacae with resistance to multiple ABX. -Per Pt, Dr. Barrios, removal of Tenkhoff catheter done Infectious disease consulted recommendations appreciated * Peritonitis related to peritoneal dialysis (Enterobacter - bush sensitive) * Continue Flagyl and ceftazidime Imaging: * CT abdomen/pelvis 04/24: Multiple fluid-filled bowel loops. No obstruction. Large amount of abdominal ascites. * CT abdomen/pelvis 04/29:Equal changes and left lung base. Fluid with no free air.Dialysis catheter in good position. Retroperitoneum unremarkable. Extensive vascular calcifications noted. Osteoporotic bone with history of renal failure. No obvious etiology for patient's diffuse abdominal pain. Meds: * Flagyl 500mg PO q8H (04/25- * Ceftriaxone 2g (04/24-04/26) * Cefazolin and Vanc (05/01- * ceftazidime 1 g daily IP (04/26-05/01) * Meropenem 500mg daily (04/30-05/02) (2) End stage kidney disease Status: Chronic Plan: Patient history of end-stage renal disease. Now receiving hemodialysis Nephrology consulted: Appreciate recommendations * Continue to replace potassium, and calcium; patient currently refusing * Continue with phosphorus binders * Tenkhoff cath done * PermCath has been placed * Started hemodialysis (3) Clostridium difficile colitis Status: Acute Plan: -See above (peritonitis) (4) SOB (shortness of breath) Status: Resolved Plan: New-onset SOB that started on the evening of 04/27. Symptoms significantly improved since starting hemodialysis. likely related to fluid overload -Incentive spirometry and acapella -Titrate O2 -CXR unremarkable (5) HIV (human immunodeficiency virus infection) Status: Chronic Plan: HIV medications recently adjusted and verified. HIV physician is Dr Sukumar Ojeda ([phone]). -Continue with current home HIV medications at this time. (6) Hypertension Status: Chronic Plan: Patient has a long-standing history of hypertension. * Holding patient's lisinopril * Continue labetalol 30 mg by mouth every 12 hours * Continue amlodipine 10 mg by mouth daily * Hydralazine IV when necessary elevated blood pressure * appreciate help of Nephrology (7) Nutrition, metabolism, and development symptoms Status: Acute Plan: Diet: Renal diet as tolerated, eating better today per pt Fluids: None Electrolytes: KCl 20 daily liquid, Tums, PhosLo DVT PPX: Heparin HELD 04/30 and SCDs. she gets heparin with dialysis. unsure if she needs heparin sq to prevent clots. She never took heparin preventatively during this hospitalization. she just had her perma cath placed but will strongly consider restarting heparin sq tomorrow GI PPX: Pepcid Problem Qualifiers (1) Hypertension: Qualified Code: I15.1 - Hypertension secondary to other renal disorders Vero Paulson MD May 04, 2016 12:28
[2016-05-04] MEDS ORDERED: CALCIUM GLUCONATE INJ 1 GM in SODIUM CHLORIDE 0.9% INJ 100 ML IV ONE (13:15)
[2016-05-04] MEDS: HYDROmorphone HCL PF 1 MG/ML VIAL IV PUSH PRN ×2 (14:49→20:12)
[2016-05-04] MEDS: LEVOFLOXACIN 250 MG TAB PO SCH (14:55)
[2016-05-04 16:00] VITALS: BP 94/68; PULSE 97; RESP 20; TEMP 97.8; O2SAT 92
[2016-05-04 20:00] VITALS: BP 102/62; PULSE 88; RESP 18; TEMP 98.2; O2SAT 97
[2016-05-04] MEDS: DOLUTEGRAVIR SODIUM 50 MG TAB PO SCH (20:12)
[2016-05-04] MEDS: RILPIVIRINE 25 MG TAB PO SCH (20:12)
[2016-05-04] MEDS: ATORVASTATIN 10 MG TAB PO SCH (20:12)
[2016-05-05] VITALS (10 sets, daily range): BP systolic 72–125; BP diastolic 40–83; PULSE 77–91; RESP 18–20; TEMP 97.5–98.4; O2SAT 96–99
[2016-05-05] MEDS ORDERED: SODIUM CHLOR 0.9% IV ONE (02:15)
[2016-05-05] MEDS: cefTAZidime/AVIBACTAM INJ 0.94 GM in SODIUM CHLORIDE 0.9% INJ 50 ML IV SCH ×2 (03:00→14:03)
[2016-05-05] MEDS: CALCIUM CARBONATE 500 MG CHEWABLE TAB CHEW SCH ×7 (04:00→23:58)
[2016-05-05 04:06] LABS: BICARBONATE 25.5 MEQ/L (21.0-32.0); MAGNESIUM 2.1 MG/DL (1.5-2.5); POTASSIUM 4.2 MEQ/L (3.5-5.1); TOTAL BILIRUBIN ADULT 0.8 MG/DL (0.2-1.0)
[2016-05-05 04:09] LABS: AUTOMATED NEUTROPHIL # 18.8 TH/MM3 (1.8-7.7); BASOPHIL # 0.1 TH/MM3 (0-0.2); BASOPHIL % 0.3 % (0.0-2.0); EOSINOPHIL % 0.2 % (0.0-4.0); HEMATOCRIT 25.7 % (35.0-46.0); LYMPH % 3.2 % (9.0-44.0); LYMPHOCYTE # 0.7 TH/MM3 (1.0-4.8); MEAN CELL VOLUME 99.2 FL (80.0-100.0); MEAN CORPUSCULAR HEMOGLOBIN 32.7 PG (27.0-34.0); NEUT % 85.3 % (16.0-70.0); PLATELET COUNT 324 TH/MM3 (150-450); RED BLOOD COUNT 2.59 MIL/MM3 (4.00-5.30); RED CELL DISTRIBUTION WIDTH 15.2 % (11.6-17.2)
[2016-05-05 04:12] LABS: HEMO FLAGS AUTO DIFF
[2016-05-05 04:17] LABS: APTT (PATIENT) 29.9 SEC (24.3-30.1); INTERNATIONAL NORMALIZED RATIO 1.3 RATIO; PROTHROMBIN TIME - PATIENT 14.1 SEC (9.8-11.6)
[2016-05-05 04:28] LABS: CALCIUM-PROTEIN CORRECTED 7.2 MG/DL (8.5-10.1)
[2016-05-05] MEDS: metroNIDAZOLE 500 MG TAB PO SCH ×3 (05:08→23:58)
[2016-05-05] MEDS: HYDROmorphone HCL 2 MG TAB PO PRN ×4 (05:08→23:58)
[2016-05-05 05:21] LABS: SCAN/DIFF AUTO DIFF CONFIRMED; TARGET CELLS 1+ (NORMAL)
[2016-05-05] MEDS: LABETALOL HCL 300 MG TAB PO SCH ×2 (09:00→19:51)
[2016-05-05] MEDS: POTASSIUM CHLORIDE 20 MEQ PWD PACKET PO SCH ×2 (09:00→19:50)
[2016-05-05] MEDS: CALCIUM ACETATE 667 MG CAP PO SCH ×3 (09:00→17:52)
[2016-05-05] MEDS: LACTOBACILLUS ACIDOPHILUS TAB PO SCH ×3 (09:57→17:52)
[2016-05-05] MEDS: LEVOFLOXACIN 250 MG TAB PO SCH (09:57)
[2016-05-05] MEDS: FAMOTIDINE 20 MG TAB PO SCH (09:57)
[2016-05-05] MEDS: SODIUM CHLORIDE 0.9% FLUSH 5 ML FLUSH FLUSH SCH ×2 (09:58→19:52)
[2016-05-05] MEDS ORDERED: LABETALOL HCL 100 MG TAB PO PRN (11:00)
--- NOTE | 2016-05-05 11:17 | HHI.NPPN ---
Subjective History of Present Illness 40 year old female with ESRD C dif colitis gr neg peritonitis Additional Remarks Patient is alert, still has abd. pain, not in distress. Review of Systems General Constitutional: Fatigue Gastrointestinal Gastrointestinal: Abdominal Pain Objective Data Data 05/04/16 05/05/16 19:00 07:00 Intake Total 0 ml 340 ml Output Total 2000 ml Balance -2000 ml 340 ml Intake Oral 0 ml 340 ml IV Total 0 ml Hemodialysis 2000 ml # Voids 1 # Bowel Movements 3 1 Vital Signs Date Time Temp Pulse Resp B/P Pulse Ox O2 Delivery O2 Flow Rate FiO2 05/05/16 10:13 97 21 05/05/16 09:50 3.00 05/05/16 08:00 97.5 89 20 97/54 98 05/05/16 04:09 98.4 84 20 107/57 98 05/05/16 03:09 97/54 05/05/16 02:23 85/54 05/05/16 01:15 72/40 05/05/16 00:00 98.1 77 18 87/53 98 05/04/16 20:00 98.2 88 18 102/62 97 05/04/16 19:30 Room Air 05/04/16 16:00 97.8 97 20 94/68 92 -: 05/05/16 0300 05/05/16 0300 Microbiology 05/05/16 Aerobic Blood Culture, Received Pending 05/05/16 Anaerobic Blood Culture, Received Pending 05/05/16 Aerobic Blood Culture, Received Pending 05/05/16 Anaerobic Blood Culture, Received Pending Physical Exam General Appearance: No Acute Distress, Comfortable Neck Neck Exam: Neck Supple Pulmonary Resp Exam: Breath Sounds Equal, Decreased Bases Cardiology CV Exam: Regular Gastrointestinal/Abdomen GI Exam: Soft, Non-Tender, Distended Neurologic Neuro Exam: Alert, Awake Assessment/Plan Problem List: (1) End stage kidney disease Plan: Patient is positive for C. difficile and is on metronidazole, gr Neg in PD fluid Enterobacter on Ceftazidime Repeat Cell count high c/o abdominal pain repeat culture positive Gr neg Enterobacter now on HD, PD Catheter removed. Continue antibiotics as per ID. WBC slightly better. On Ceftazidime, Levaquin and Flagyl. Continue HD, TTS. (2) Abdominal pain Plan: Likely due to C. difficile colitis Peritonitis gram neg (3) Clostridium difficile colitis Plan: Positive PCR (4) H/O parathyroidectomy Plan: on calcium supplement and continue with phosphorus binders with Christiano Ruiz MD May 05, 2016 11:17
--- NOTE | 2016-05-05 13:27 | HHI.IDPN ---
Subjective Subjective Remarks Notes reviewed Temps ok Abdominal pain mild Had removal of Tenckhoff cath 05/03 CXR with mild L base infiltrate WBC still elevated Enterobacter KPC in fluid Antibiotics Flagyl Avycaz Levaquin Lines PIV Past Medical History ESRD HIV stable HTN Past Surgical History PD cath placement Allergies: Coded Allergies: Iron Dextran (Verified Allergy, Severe, IRON INJECTIONS, 04/24/16) PT STATES THEY HAVE NOW CHANGED BRANDS OF IRON & SHE IS ABLE TO TAKE THE NEW BRAND OF IRON Objective . Vital Signs Date Time Temp Pulse Resp B/P Pulse Ox O2 Delivery O2 Flow Rate FiO2 05/05/16 10:13 97 21 05/05/16 09:50 3.00 05/05/16 08:00 97.5 89 20 97/54 98 05/05/16 04:09 98.4 84 20 107/57 98 05/05/16 03:09 97/54 05/05/16 02:23 85/54 05/05/16 01:15 72/40 05/05/16 00:00 98.1 77 18 87/53 98 05/04/16 20:00 98.2 88 18 102/62 97 05/04/16 19:30 Room Air 05/04/16 16:00 97.8 97 20 94/68 92 05/04/16 05/04/16 05/05/16 15:00 23:00 07:00 Intake Total 0 ml 240 ml 100 ml Output Total 2000 ml Balance -2000 ml 240 ml 100 ml Intake Oral 0 ml 240 ml 100 ml IV Total 0 ml Hemodialysis 2000 ml # Voids 0 1 # Bowel Movements 3 0 1 . Laboratory Tests Test 05/04/16 05/05/16 06:30 03:00 White Blood Count 23.5 TH/MM3 22.0 TH/MM3 Red Blood Count 2.74 MIL/MM3 2.59 MIL/MM3 Hemoglobin 9.1 GM/DL 8.5 GM/DL Hematocrit 26.9 % 25.7 % Mean Corpuscular Volume 98.4 FL 99.2 FL Mean Corpuscular Hemoglobin 33.1 PG 32.7 PG Mean Corpuscular Hemoglobin 33.6 % 33.0 % Concent Red Cell Distribution Width 15.2 % 15.2 % Platelet Count 323 TH/MM3 324 TH/MM3 Mean Platelet Volume 9.0 FL 9.1 FL Neutrophils (%) (Auto) 85.3 % Lymphocytes (%) (Auto) 3.2 % Monocytes (%) (Auto) 11.0 % Eosinophils (%) (Auto) 0.2 % Basophils (%) (Auto) 0.3 % Neutrophils # (Auto) 18.8 TH/MM3 Lymphocytes # (Auto) 0.7 TH/MM3 Monocytes # (Auto) 2.4 TH/MM3 Eosinophils # (Auto) 0.0 TH/MM3 Basophils # (Auto) 0.1 TH/MM3 CBC Comment AUTO DIFF Differential Comment AUTO DIFF CONFIRMED Target Cells 1+ Laboratory Tests Test 05/04/16 05/05/16 06:30 03:00 Sodium Level 137 MEQ/L 139 MEQ/L Potassium Level 4.3 MEQ/L 4.2 MEQ/L Chloride Level 97 MEQ/L 99 MEQ/L Carbon Dioxide Level 24.0 MEQ/L 25.5 MEQ/L Anion Gap 16 MEQ/L 15 MEQ/L Blood Urea Nitrogen 89 MG/DL 54 MG/DL Creatinine 11.59 MG/DL 7.32 MG/DL Estimat Glomerular Filtration 4 ML/MIN 7 ML/MIN Rate Random Glucose 101 MG/DL 85 MG/DL Calcium Level 6.9 MG/DL 7.2 MG/DL Protein Corrected Calcium 6.8 MG/DL 7.2 MG/DL Total Protein 7.5 GM/DL 7.2 GM/DL Lactic Acid Level 0.9 mmol/L Magnesium Level 2.1 MG/DL Total Bilirubin 0.8 MG/DL Microbiology Date/Time Procedure Status Source Growth 05/05/16 03:00 Aerobic Blood Culture Received Blood Peripheral Pending 05/05/16 03:00 Anaerobic Blood Culture Received Blood Peripheral Pending 05/05/16 03:06 Aerobic Blood Culture Received Blood Peripheral Pending 05/05/16 03:06 Anaerobic Blood Culture Received Blood Peripheral Pending Imaging Chest X-Ray 04/28/16 0000 Signed Impressions: Service Date/Time: Thursday, April 28, 2016 08:13 - CONCLUSION: No acute cardiopulmonary disease identified. Sterling Krishnamurthy MD Abdomen/Pelvis CT 04/24/16 0000 Signed Impressions: Service Date/Time: Sunday, April 24, 2016 15:39 - CONCLUSION: 1. Multiple fluid-filled bowel loops. No obstruction. 2. Large amount of abdominal ascites. 3. Atrophic bilateral kidneys with numerous calcifications and cysts. Brandon Romero MD Physical Exam GENERAL: awake and alert, NAD. SKIN: Warm and dry. No rashes, ecchymoses or embolic lesions. HEENT: Elizabeth conjunctivae. No scleral icterus. No injection or drainage. Moist oral mucosa. NECK: Supple, nontender, no meningeal signs. CARDIOVASCULAR: Regular rate and rhythm without murmurs, gallops, or rubs. RESPIRATORY: Clear to auscultation. Breath sounds equal bilaterally. No wheezes , rales, or rhonchi. GASTROINTESTINAL: Abdomen distended, hypoactive bowel sounds, with mild tenderness. Dry dressing in place. MUSCULOSKELETAL: Extremities without clubbing, cyanosis, or edema. No calf tenderness. NEUROLOGICAL: Non-focal PSYCH: Normal affect, calm and cooperative LINE: Permacath site ok Assessment & Plan Remarks IMPRESSION Peritonitis with Enterobacter, PD related - worsening - S/P removal of PD cath - Enterobacter becoming resistant, now KPC C difficile colitis, seems mild Leukocytosis Cough, has mild L base infiltrate HIV, on HAART ESRD on PD RECOMMENDATION Continue Flagyl po for C diff colitis Continue Avycaz Continue levaquin Follow new C/S Follow CBC Monitor progress Avani Blackwell MD May 05, 2016 13:27
--- NOTE | 2016-05-05 15:06 | HHI.FPPN ---
Subjective Remarks Patient seen and examined by medical team this morning. No acute events overnight. Patient with multiple episodes of asymptomatic hypotension overnight and given normal saline bolus. We discussed her by mouth fluid intake and her diet early this morning. She is agreeable to start consuming protein enhanced liquid supplements as she cannot tolerate many solid foods. She has no complaints this morning and denies any fevers, chills, shortness of breath, chest pain, NVD, or calf tenderness. (Candelario Gaines MD R1) Objective Vitals Vital Signs Date Time Temp Pulse Resp B/P Pulse Ox O2 Delivery O2 Flow Rate FiO2 05/05/16 12:00 98.3 89 20 108/67 97 05/05/16 10:13 97 21 05/05/16 09:50 3.00 05/05/16 08:00 97.5 89 20 97/54 98 05/05/16 04:09 98.4 84 20 107/57 98 05/05/16 03:09 97/54 05/05/16 02:23 85/54 05/05/16 01:15 72/40 05/05/16 00:00 98.1 77 18 87/53 98 05/04/16 20:00 98.2 88 18 102/62 97 05/04/16 19:30 Room Air 05/04/16 16:00 97.8 97 20 94/68 92 I/O 05/04/16 05/04/16 05/04/16 05/05/16 05/05/16 05/05/16 07:00 15:00 23:00 07:00 15:00 23:00 Intake Total 50 ml 0 ml 240 ml 100 ml 0 ml Output Total 2000 ml Balance 50 ml -2000 ml 240 ml 100 ml 0 ml Intake Oral 0 ml 240 ml 100 ml IV Total 50 ml 0 ml 0 ml Hemodialysis 2000 ml # Voids 0 1 # Bowel Movements 3 0 1 (Candelario Gaines MD R1) Result Diagram: 05/05/16 0300 05/05/16 0300 Objective Remarks GEN: Thin AAF in no obvious distress lying down in bed. CV: Regular rate and rhythm without obvious murmurs LUNGS: Clear to auscultation bilaterally with good air movement bilaterally. No increased WOB. GI: Protuberant, no tenderness to palpation with +BS. No voluntary guarding today. +BS. EXT: No edema. No calf tenderness. NEURO/PSYCH: Awake, alert. Appropriate insight and judgment. Normal speech ( Candelario Gaines MD R1) A/P Assessment and Plan 40-year-old -German female with PMH of ESRD, HTN, HIV. Was admitted for C. difficile and peritonitis. Discharge Planning Timeline unknown at this time. Pending clinical improvement. Will need PT consult once acute symptoms improve. DW: Dr. Paulson (Candelario Gaines MD R1) Attending Attestation Patient seen and examined. Case reviewed and discussed with the resident team. Agree with plan of care as discussed with me and documented in the resident note. agree with decreasing BP meds if she is hypotensive, on hemodialysis the fluid shifts are much greater than peritoneal and BP can be lower (Vero Paulson MD) Problem List: (1) SBP (spontaneous bacterial peritonitis) Status: Acute Plan: Found to have SBP with Enterobacter cloacae sensitive to ceftazidime. Despite treatment patient continued to have severe abdominal pain but has begun to improve and has no big complaint today of abdominal pain. Pt also found to have C diff, positive PCR. -Leukocytosis originally resolved on 04/26 but with a recent spike on 05/01, continue to monitor. Unsure if elevated WBC possibly due to C diff as that can increase the WBC. Per Dr Wilson, she is clinically much improved and has no fevers today and less to no pain. -Peritoneal fluids diagnostic of SBP with elevated absolute PMN >250 and positive culture. -Repeat peritoneal fluid analysis shows worsening WBC and RBC. Cultures showing Enterobacter cloacae with resistance to multiple ABX. -Per Pt, Dr. Barrios, removal of Tenkhoff catheter done Infectious disease consulted recommendations appreciated * Peritonitis related to peritoneal dialysis (Enterobacter - bush sensitive) * Continue Flagyl and Ceftazidime/Avibactam * Added Levaquin for possible PNA coverage Imaging: * CT abdomen/pelvis 04/24: Multiple fluid-filled bowel loops. No obstruction. Large amount of abdominal ascites. * CT abdomen/pelvis 04/29:Equal changes and left lung base. Fluid with no free air.Dialysis catheter in good position. Retroperitoneum unremarkable. Extensive vascular calcifications noted. Osteoporotic bone with history of renal failure. No obvious etiology for patient's diffuse abdominal pain. Meds: * Flagyl 500mg PO q8H (04/25- ) * Ceftriaxone 2g (04/24-04/26) * Cefazolin and Vanc (05/01- 05/05) * ceftazidime 1 g daily IP (04/26-05/01) * Ceftazidime/Avibactam (05/02- ) * Meropenem 500mg daily (04/30-05/02) * Levaquin (05/04- ) (2) End stage kidney disease Status: Chronic Plan: Patient history of end-stage renal disease. Now receiving hemodialysis Nephrology consulted: Appreciate recommendations * Continue to replace potassium, and calcium; patient currently refusing * Continue with phosphorus binders * Tenkhoff cath done * PermCath has been placed * Started hemodialysis (3) Clostridium difficile colitis Status: Acute Plan: -See above (peritonitis) (4) SOB (shortness of breath) Status: Resolved Plan: New-onset SOB that started on the evening of 04/27. Symptoms significantly improved since starting hemodialysis. likely related to fluid overload -Incentive spirometry and acapella -Titrate O2 -CXR unremarkable (5) HIV (human immunodeficiency virus infection) Status: Chronic Plan: HIV medications recently adjusted and verified. HIV physician is Dr Sukumar Ojeda ([phone]). -Continue with current home HIV medications at this time. (6) Hypertension Status: Chronic Plan: Patient has a long-standing history of hypertension currently with multiple episodes of asymptomatic hypotension * Holding patient's lisinopril * Decreased labetalol to 150mg BID * Decreased amlodipine to 5mg daily * Labetalol 150mg when necessary BID to be used before hydralazine * Hydralazine IV when necessary elevated blood pressure * Appreciate nephrology recommendations (7) Nutrition, metabolism, and development symptoms Status: Acute Plan: Diet: Renal diet as tolerated, eating better today per pt, patient agrees to enhance diet with protein added liquid supplements Fluids: None Electrolytes: KCl 20 daily liquid, Tums, PhosLo DVT PPX: Heparin 5000 units BID GI PPX: Pepcid (Candelario Gaines MD R1) Problem Qualifiers (1) Hypertension: Qualified Code: I15.1 - Hypertension secondary to other renal disorders Candelario Gaines MD R1 May 05, 2016 15:06 Vero Paulson MD May 08, 2016 10:04
[2016-05-05] MEDS: DOLUTEGRAVIR SODIUM 50 MG TAB PO SCH (19:50)
[2016-05-05] MEDS: RILPIVIRINE 25 MG TAB PO SCH (19:50)
[2016-05-05] MEDS: ATORVASTATIN 10 MG TAB PO SCH (19:50)
[2016-05-05] MEDS: HYDROmorphone HCL PF 1 MG/ML VIAL IV PUSH PRN (19:51)
[2016-05-05] MEDS: HEPARIN SODIUM - SQ 10,000 UNITS/ML VIAL SQ SCH (19:51)
[2016-05-05] MEDS ORDERED: HEPARIN SODIUM - SQ 10,000 UNITS/ML VIAL SQ SCH (21:00)
[2016-05-06] VITALS (8 sets, daily range): BP systolic 107–136; BP diastolic 69–76; PULSE 85–94; RESP 18; TEMP 97.7–98.3; O2SAT 96–99
[2016-05-06] MEDS: cefTAZidime/AVIBACTAM INJ 0.94 GM in SODIUM CHLORIDE 0.9% INJ 50 ML IV SCH ×2 (03:36→15:00)
[2016-05-06] MEDS: CALCIUM CARBONATE 500 MG CHEWABLE TAB CHEW SCH ×5 (03:38→20:00)
[2016-05-06] MEDS: metroNIDAZOLE 500 MG TAB PO SCH ×3 (06:28→22:01)
[2016-05-06] MEDS: HYDROmorphone HCL PF 1 MG/ML VIAL IV PUSH PRN ×2 (06:28→19:33)
[2016-05-06 07:34] LABS: HEMATOCRIT 26.1 % (35.0-46.0); MEAN CELL VOLUME 100.4 FL (80.0-100.0); MEAN CORPUSCULAR HEMOGLOBIN 32.7 PG (27.0-34.0); MEAN CORPUSCULAR HGB CONC 32.5 % (32.0-36.0); PLATELET COUNT 325 TH/MM3 (150-450); RED CELL DISTRIBUTION WIDTH 15.4 % (11.6-17.2); REVIEW FLAG FINAL; WHITE BLOOD COUNT 19.3 TH/MM3 (4.0-11.0)
[2016-05-06 08:07] LABS: BICARBONATE 20.2 MEQ/L (21.0-32.0); POTASSIUM 4.1 MEQ/L (3.5-5.1)
[2016-05-06 08:30] LABS: CALCIUM-PROTEIN CORRECTED 6.8 MG/DL (8.5-10.1)
[2016-05-06] MEDS: LABETALOL HCL 300 MG TAB PO SCH ×2 (08:47→08:59)
[2016-05-06] MEDS: LEVOFLOXACIN 250 MG TAB PO SCH (08:48)
[2016-05-06] MEDS: LACTOBACILLUS ACIDOPHILUS TAB PO SCH ×3 (08:48→18:00)
[2016-05-06] MEDS: FAMOTIDINE 20 MG TAB PO SCH (08:48)
[2016-05-06] MEDS: POTASSIUM CHLORIDE 20 MEQ PWD PACKET PO SCH ×2 (08:50→22:06)
[2016-05-06] MEDS: CALCIUM ACETATE 667 MG CAP PO SCH ×3 (08:51→18:00)
[2016-05-06] MEDS: HEPARIN SODIUM - SQ 10,000 UNITS/ML VIAL SQ SCH ×2 (08:58→22:02)
[2016-05-06] MEDS: SODIUM CHLORIDE 0.9% FLUSH 5 ML FLUSH FLUSH SCH ×2 (09:00→22:05)
[2016-05-06] MEDS ORDERED: amLODIPine BESYLATE 5 MG TAB PO SCH (09:00)
--- NOTE | 2016-05-06 09:14 | HHI.FPPN ---
Subjective Remarks No acute events overnight. Blood pressures have improved this morning. This morning she states that her abdominal pain continues to improve but is slightly worse today as she did not take her pain medication. She does not want to take her pain medication as it decreases her appetite. She also complains of abdominal pressure that she feels is due to constipation but she was able to have a small bowel movement yesterday. Patient otherwise feels well. (Ariela Galaviz MD R2) Objective Vitals Vital Signs Date Time Temp Pulse Resp B/P Pulse Ox O2 Delivery O2 Flow Rate FiO2 05/06/16 08:25 98 21 05/06/16 04:00 98.3 86 18 107/69 98 05/06/16 00:00 98.2 89 18 107/76 98 05/05/16 20:02 Room Air 05/05/16 20:00 98.3 89 18 125/83 99 05/05/16 16:00 98.3 91 20 107/71 96 05/05/16 12:00 98.3 89 20 108/67 97 05/05/16 10:13 97 21 05/05/16 09:50 3.00 I/O 05/05/16 05/05/16 05/05/16 05/06/16 05/06/16 05/06/16 07:00 15:00 23:00 07:00 15:00 23:00 Intake Total 100 ml 60 ml 360 ml 240 ml Balance 100 ml 60 ml 360 ml 240 ml Intake Oral 100 ml 60 ml 360 ml 240 ml IV Total 0 ml # Voids 1 0 0 1 # Bowel Movements 1 1 0 0 (Ariela Regan MD R2) Result Diagram: 05/06/16 0620 05/06/16 0620 Objective Remarks GEN: Thin AAF in no obvious distress lying down in bed. CV: Regular rate and rhythm without obvious murmurs LUNGS: Clear to auscultation bilaterally with good air movement bilaterally. No increased WOB. EXT: No edema. No calf tenderness. NEURO/PSYCH: Awake, alert. Appropriate insight and judgment. Normal speech ( Ariela Regan MD R2) A/P Assessment and Plan 40-year-old -English female with PMH of ESRD, HTN, HIV. Was admitted for C. difficile and peritonitis. Discharge Planning Timeline unknown at this time. Pending clinical improvement. PT: will need rehab upon discharge DW: Dr. Paulson and Dr. Gaines ([facility] R[facility]) Attending Attestation Patient seen and examined. Case reviewed and discussed with the resident team. Agree with plan of care as discussed with me and documented in the resident note. slow but steady improvement (Vero Paulson MD) Problem List: (1) SBP (spontaneous bacterial peritonitis) Status: Acute Plan: Found to have SBP with Enterobacter cloacae sensitive to ceftazidime. Despite treatment patient continued to have severe abdominal pain but has begun to improve after removal of Tenkhoff on 05/03/16 and discontinuation of peritoneal dialysis. Pt also found to have C diff, positive PCR. -Leukocytosis now improving slightly -Peritoneal fluids diagnostic of SBP with elevated absolute PMN >250 and positive culture. Repeat fluid analysis continued to show elevated PMN. Infectious disease consulted recommendations appreciated * Peritonitis related to peritoneal dialysis * Continue Flagyl and ceftazidime/avibactam Imaging: * CT abdomen/pelvis 04/24: Multiple fluid-filled bowel loops. No obstruction. Large amount of abdominal ascites. * CT abdomen/pelvis 04/29:Equal changes and left lung base. Fluid with no free air.Dialysis catheter in good position. Retroperitoneum unremarkable. Extensive vascular calcifications noted. Osteoporotic bone with history of renal failure. No obvious etiology for patient's diffuse abdominal pain. Meds: * Ceftazidime/Avibactam (05/02- * Levaquin (05/04- * Flagyl 500mg PO q8H (04/25- * Ceftriaxone 2g (04/24-04/26) * ceftazidime 1 g daily IP (04/26-05/01) * Meropenem 500mg daily (04/30-05/02) (2) End stage kidney disease Status: Chronic Plan: Patient history of end-stage renal disease. Now receiving hemodialysis Nephrology consulted: Appreciate recommendations * Continue to replace potassium, and calcium; patient currently refusing * Continue with phosphorus binders * Started hemodialysis (3) Clostridium difficile colitis Status: Acute Plan: -See above (peritonitis) (4) HIV (human immunodeficiency virus infection) Status: Chronic Plan: HIV medications recently adjusted and verified. HIV physician is Dr Sukumar Ojeda ([phone]). -Continue with current home HIV medications at this time. (5) Hypertension Status: Chronic Plan: Patient has a long-standing history of hypertension currently with multiple episodes of asymptomatic hypotension * Holding patient's lisinopril * Decreased labetalol to 150mg BID * Decreased and now HOLDING amlodipine to 5mg daily * Labetalol 150mg when necessary BID to be used before hydralazine * Hydralazine IV when necessary elevated blood pressure (6) Nutrition, metabolism, and development symptoms Status: Acute Plan: Diet: Renal diet as tolerated, eating better today per pt, patient agrees to enhance diet with protein added liquid supplements Fluids: None Electrolytes: KCl 20 daily liquid, Tums, PhosLo DVT PPX: Heparin 5000 units Q12HR GI PPX: Pepcid Constipation: * lactulose 15ml daily (Ariela Regan MD R2) Problem Qualifiers (1) Hypertension: Qualified Code: I15.1 - Hypertension secondary to other renal disorders Ariela Regan MD R2 May 06, 2016 09:14 Vero Paulson MD May 08, 2016 10:05
[2016-05-06] MEDS: LACTULOSE SYRUP 20 GM/30 ML CUP PO SCH (10:00)
--- NOTE | 2016-05-06 13:15 | HHI.NPPN ---
Subjective History of Present Illness 40 year old female with ESRD C dif colitis gr neg peritonitis Additional Remarks Patient is alert, still has abd. pain, not in distress. Review of Systems General Constitutional: Fatigue Gastrointestinal Gastrointestinal: Abdominal Pain Objective Data Data 05/05/16 05/06/16 19:00 07:00 Intake Total 60 ml 600 ml Balance 60 ml 600 ml Intake Oral 60 ml 600 ml IV Total 0 ml # Voids 0 1 # Bowel Movements 1 0 Vital Signs Date Time Temp Pulse Resp B/P Pulse Ox O2 Delivery O2 Flow Rate FiO2 05/06/16 08:25 98 21 05/06/16 08:00 98 Room Air 05/06/16 08:00 97.9 87 18 136/74 97 05/06/16 04:00 98.3 86 18 107/69 98 05/06/16 00:00 98.2 89 18 107/76 98 05/05/16 20:02 Room Air 05/05/16 20:00 98.3 89 18 125/83 99 05/05/16 16:00 98.3 91 20 107/71 96 -: 05/06/16 0620 05/06/16 0620 Physical Exam General Appearance: No Acute Distress, Comfortable Neck Neck Exam: Neck Supple Pulmonary Resp Exam: Breath Sounds Equal, Decreased Bases Cardiology CV Exam: Regular Gastrointestinal/Abdomen GI Exam: Soft, Non-Tender, Distended GI Remarks tender Neurologic Neuro Exam: Alert, Awake Assessment/Plan Problem List: (1) End stage kidney disease Plan: Patient is positive for C. difficile and is on metronidazole, gr Neg in PD fluid Enterobacter on Ceftazidime Repeat Cell count high c/o abdominal pain repeat culture positive Gr neg Enterobacter now on HD, PD Catheter removed. Continue antibiotics as per ID. On Ceftazidime, Levaquin and Flagyl. Continue HD, TTS. (2) Abdominal pain Plan: Likely due to C. difficile colitis Peritonitis gram neg (3) Clostridium difficile colitis Plan: Positive PCR (4) H/O parathyroidectomy Plan: on calcium supplement and continue with phosphorus binders with Victor Manuel Farrar MD May 06, 2016 13:15
[2016-05-06] MEDS: ACETAMINOPHEN/HYDROcodone 325 MG/5 MG TAB PO PRN (19:32)
[2016-05-06] MEDS: DOLUTEGRAVIR SODIUM 50 MG TAB PO SCH (22:02)
[2016-05-06] MEDS: ATORVASTATIN 10 MG TAB PO SCH (22:02)
[2016-05-06] MEDS: RILPIVIRINE 25 MG TAB PO SCH (22:02)
[2016-05-07] VITALS (7 sets, daily range): BP systolic 106–126; BP diastolic 65–85; PULSE 81–97; RESP 16–20; TEMP 97.8–98.8; O2SAT 95–100
[2016-05-07] MEDS: CALCIUM CARBONATE 500 MG CHEWABLE TAB CHEW SCH ×7 (00:34→23:04)
[2016-05-07] MEDS: ACETAMINOPHEN/HYDROcodone 325 MG/5 MG TAB PO PRN ×3 (02:08→22:03)
[2016-05-07] MEDS: cefTAZidime/AVIBACTAM INJ 0.94 GM in SODIUM CHLORIDE 0.9% INJ 50 ML IV SCH ×2 (02:10→14:36)
[2016-05-07] MEDS: metroNIDAZOLE 500 MG TAB PO SCH ×3 (06:02→22:00)
[2016-05-07] MEDS: LABETALOL HCL 300 MG TAB PO SCH ×2 (09:00→22:00)
[2016-05-07] MEDS: SODIUM CHLORIDE 0.9% FLUSH 5 ML FLUSH FLUSH SCH ×2 (09:00→21:00)
[2016-05-07] MEDS: LACTOBACILLUS ACIDOPHILUS TAB PO SCH ×3 (09:00→18:00)
[2016-05-07] MEDS: POTASSIUM CHLORIDE 20 MEQ PWD PACKET PO SCH ×2 (09:00→21:00)
[2016-05-07 09:50] LABS: AUTOMATED NEUTROPHIL # 14.9 TH/MM3 (1.8-7.7); BASOPHIL # 0.1 TH/MM3 (0-0.2); BASOPHIL % 0.4 % (0.0-2.0); EOSINOPHIL # 0.1 TH/MM3 (0-0.4); EOSINOPHIL % 0.6 % (0.0-4.0); HEMATOCRIT 26.5 % (35.0-46.0); HEMO FLAGS DIFF FINAL; LYMPH % 2.5 % (9.0-44.0); LYMPHOCYTE # 0.4 TH/MM3 (1.0-4.8); MEAN CELL VOLUME 99.2 FL (80.0-100.0); MEAN CORPUSCULAR HEMOGLOBIN 32.9 PG (27.0-34.0); MEAN CORPUSCULAR HGB CONC 33.1 % (32.0-36.0); MONO % 6.7 % (0.0-8.0); NEUT % 89.8 % (16.0-70.0); PLATELET COUNT 376 TH/MM3 (150-450); RED BLOOD COUNT 2.67 MIL/MM3 (4.00-5.30); RED CELL DISTRIBUTION WIDTH 16.1 % (11.6-17.2); WHITE BLOOD COUNT 16.5 TH/MM3 (4.0-11.0)
[2016-05-07 10:24] LABS: BICARBONATE 26.2 MEQ/L (21.0-32.0); POTASSIUM 3.2 MEQ/L (3.5-5.1)
--- NOTE | 2016-05-07 11:09 | HHI.NPPN ---
Subjective History of Present Illness 40 year old female with ESRD C dif colitis gr neg peritonitis Additional Remarks Patient is alert, still has abd. pain, not in distress. Review of Systems General Constitutional: Fatigue Gastrointestinal Gastrointestinal: Abdominal Pain Objective Data Data 05/06/16 05/07/16 19:00 07:00 Intake Total 360 ml 240 ml Balance 360 ml 240 ml Intake Oral 360 ml 240 ml # Voids 0 2 # Bowel Movements 3 1 Vital Signs Date Time Temp Pulse Resp B/P Pulse Ox O2 Delivery O2 Flow Rate FiO2 05/07/16 08:00 97.8 84 20 106/65 98 05/07/16 07:22 98 21 05/07/16 04:00 98.0 81 18 108/68 98 05/07/16 00:00 97.9 94 18 125/71 95 05/06/16 22:09 97 21 05/06/16 20:00 Room Air 05/06/16 20:00 98.0 89 18 109/72 96 05/06/16 16:00 98.1 94 18 116/72 99 05/06/16 12:00 97.7 85 18 108/72 97 -: 05/07/16 0900 05/07/16 0900 Physical Exam General Appearance: No Acute Distress, Comfortable Neck Neck Exam: Neck Supple Pulmonary Resp Exam: Breath Sounds Equal, Decreased Bases Cardiology CV Exam: Regular Gastrointestinal/Abdomen GI Exam: Soft, Non-Tender, Distended GI Remarks tender Neurologic Neuro Exam: Alert, Awake Assessment/Plan Problem List: (1) End stage kidney disease Plan: Patient is positive for C. difficile and is on metronidazole, gr Neg in PD fluid Enterobacter on Ceftazidime seen during HD 2 L off need out pt HD in [place] orders given for out pt placement (2) Abdominal pain Plan: Likely due to C. difficile colitis Peritonitis gram neg (3) Clostridium difficile colitis Plan: Positive PCR (4) H/O parathyroidectomy Plan: on calcium supplement and continue with phosphorus binders with Victor Manuel Farrar MD May 07, 2016 11:09
[2016-05-07] MEDS: EPOETIN ALFA 10,000 UNITS/ML VIAL IV PRN (11:19)
[2016-05-07] MEDS: GENTAMICIN SULFATE (DIALYSIS USE ONLY) 20 MG/2 ML VIAL IV PRN (11:19)
[2016-05-07] MEDS: HEPARIN SODIUM - IV 10,000 UNITS/10 ML VIAL IVF PRN (11:19)
--- NOTE | 2016-05-07 11:19 | HHI.FPPN ---
Subjective Remarks No acute events overnight. Afebrile, vital signs stable. Patient states she is feeling well this morning. Continues to complain of abdominal pain. She is trying to eat more and is currently drinking boost. (Arlene Smith MD R3) Objective Vitals Vital Signs Date Time Temp Pulse Resp B/P Pulse Ox O2 Delivery O2 Flow Rate FiO2 05/07/16 08:00 97.8 84 20 106/65 98 05/07/16 07:22 98 21 05/07/16 04:00 98.0 81 18 108/68 98 05/07/16 00:00 97.9 94 18 125/71 95 05/06/16 22:09 97 21 05/06/16 20:00 Room Air 05/06/16 20:00 98.0 89 18 109/72 96 05/06/16 16:00 98.1 94 18 116/72 99 05/06/16 12:00 97.7 85 18 108/72 97 I/O 05/06/16 05/06/16 05/06/16 05/07/16 05/07/16 05/07/16 07:00 15:00 23:00 07:00 15:00 23:00 Intake Total 240 ml 360 ml 120 ml 120 ml Balance 240 ml 360 ml 120 ml 120 ml Intake Oral 240 ml 360 ml 120 ml 120 ml # Voids 1 0 1 1 # Bowel Movements 0 3 1 0 (Arlene Smith MD R3) Result Diagram: 05/07/16 0900 05/07/16 0900 Objective Remarks Gen.: No acute distress Head: Normocephalic. Atraumatic. EENT: Pupils equal round and reactive to light. Nose without drainage. Airway intact. Throat without injection. Cardiovascular: Regular rate and rhythm. No murmurs, rubs or gallops. Respiratory: Lungs clear to auscultation bilaterally. No wheezes or rhonchi. Abdomen: Soft, tender to palpation diffusely, nondistended. No peritoneal signs. Musculoskeletal: No gross deformities. No edema. Skin: No obvious rashes or erythema. Neuro: Sensory and motor grossly intact. Cranial nerves II through XII grossly intact. Psych: Appropriate mood and affect (Arlene Smith MD R3) A/P Assessment and Plan 40-year-old -[place]ux[place]bour[place] female with PMH of ESRD, HTN, HIV. Was admitted for C. difficile and peritonitis. Discharge Planning Timeline unknown at this time. Pending clinical improvement. PT: will need rehab upon discharge (Arlene Smith MD R3) Attending Attestation Patient seen and examined. Case reviewed and discussed with the resident team. Agree with plan of care as discussed with me and documented in the resident note. pt seen in dialysis and tolerating it well (Vero Paulson MD) Problem List: (1) SBP (spontaneous bacterial peritonitis) Status: Acute Plan: Found to have SBP with Enterobacter cloacae sensitive to ceftazidime. Despite treatment patient continued to have severe abdominal pain but has begun to improve after removal of Tenkhoff on 05/03/16 and discontinuation of peritoneal dialysis. Pt also found to have C diff, positive PCR. -Leukocytosis now improving slightly -Peritoneal fluids diagnostic of SBP with elevated absolute PMN >250 and positive culture. Repeat fluid analysis continued to show elevated PMN. Infectious disease consulted recommendations appreciated * Peritonitis related to peritoneal dialysis * Continue Flagyl and ceftazidime/avibactam Imaging: * CT abdomen/pelvis 04/24: Multiple fluid-filled bowel loops. No obstruction. Large amount of abdominal ascites. * CT abdomen/pelvis 04/29:Equal changes and left lung base. Fluid with no free air.Dialysis catheter in good position. Retroperitoneum unremarkable. Extensive vascular calcifications noted. Osteoporotic bone with history of renal failure. No obvious etiology for patient's diffuse abdominal pain. Meds: * Ceftazidime/Avibactam (05/02- * Levaquin (05/04- * Flagyl 500mg PO q8H (04/25- * Ceftriaxone 2g (04/24-04/26) * ceftazidime 1 g daily IP (04/26-05/01) * Meropenem 500mg daily (04/30-05/02) (2) End stage kidney disease Status: Chronic Plan: Patient history of end-stage renal disease. Now receiving hemodialysis Nephrology consulted: Appreciate recommendations * Continue to replace and calcium; patient currently refusing * Continue with phosphorus binders * Started hemodialysis (3) Clostridium difficile colitis Status: Acute Plan: -See above (peritonitis) (4) HIV (human immunodeficiency virus infection) Status: Chronic Plan: HIV medications recently adjusted and verified. HIV physician is Dr Sukumar Ojeda ([phone]). -Continue with current home HIV medications at this time. (5) Hypertension Status: Chronic Plan: Patient has a long-standing history of hypertension currently with multiple episodes of asymptomatic hypotension * Holding patient's lisinopril * Decreased labetalol to 150mg BID * Decreased and now HOLDING amlodipine to 5mg daily * Labetalol 150mg when necessary BID to be used before hydralazine * Hydralazine IV when necessary elevated blood pressure (6) Nutrition, metabolism, and development symptoms Status: Acute Plan: Diet: Renal diet as tolerated, patient agrees to enhance diet with protein added liquid supplements Fluids: None Electrolytes: KCl 20 daily liquid, Tums, PhosLo DVT PPX: Heparin 5000 units Q12HR GI PPX: Pepcid Constipation: * lactulose 15ml daily (Arlene Smith MD R3) Problem Qualifiers (1) Hypertension: Qualified Code: I15.1 - Hypertension secondary to other renal disorders Arlene Smith MD R3 May 07, 2016 11:19 Vero Paulson MD May 08, 2016 10:05
--- NOTE | 2016-05-07 12:37 | HHI.IDPN ---
Subjective Subjective Remarks Notes reviewed Temps ok Abdominal pain better Most painful part is where she had her cath Had removal of Tenckhoff cath 05/03 WBC down to 16 Enterobacter KPC in fluid Had HD today Antibiotics Flagyl Avycaz Levaquin Lines PIV Permacath Past Medical History ESRD HIV stable HTN Past Surgical History PD cath placement Allergies: Coded Allergies: Iron Dextran (Verified Allergy, Severe, IRON INJECTIONS, 04/24/16) PT STATES THEY HAVE NOW CHANGED BRANDS OF IRON & SHE IS ABLE TO TAKE THE NEW BRAND OF IRON *MDRO Multi-Drug Resistant Organism (Verified Adverse Reaction, Unknown, ) KPC - E. cloacae (peritoneal fluid) - 05/04/16 Objective . Vital Signs Date Time Temp Pulse Resp B/P Pulse Ox O2 Delivery O2 Flow Rate FiO2 05/07/16 08:00 97.8 84 20 106/65 98 05/07/16 08:00 94 Room Air 05/07/16 07:22 98 21 05/07/16 04:00 98.0 81 18 108/68 98 05/07/16 00:00 97.9 94 18 125/71 95 05/06/16 22:09 97 21 05/06/16 20:00 Room Air 05/06/16 20:00 98.0 89 18 109/72 96 05/06/16 16:00 98.1 94 18 116/72 99 05/06/16 05/06/16 05/07/16 15:00 23:00 07:00 Intake Total 360 ml 120 ml 120 ml Balance 360 ml 120 ml 120 ml Intake Oral 360 ml 120 ml 120 ml # Voids 0 1 1 # Bowel Movements 3 1 0 . Laboratory Tests Test 05/06/16 05/07/16 06:20 09:00 White Blood Count 19.3 TH/MM3 16.5 TH/MM3 Red Blood Count 2.60 MIL/MM3 2.67 MIL/MM3 Hemoglobin 8.5 GM/DL 8.8 GM/DL Hematocrit 26.1 % 26.5 % Mean Corpuscular Volume 100.4 FL 99.2 FL Mean Corpuscular Hemoglobin 32.7 PG 32.9 PG Mean Corpuscular Hemoglobin 32.5 % 33.1 % Concent Red Cell Distribution Width 15.4 % 16.1 % Platelet Count 325 TH/MM3 376 TH/MM3 Mean Platelet Volume 9.1 FL 9.0 FL Neutrophils (%) (Auto) 89.8 % Lymphocytes (%) (Auto) 2.5 % Monocytes (%) (Auto) 6.7 % Eosinophils (%) (Auto) 0.6 % Basophils (%) (Auto) 0.4 % Neutrophils # (Auto) 14.9 TH/MM3 Lymphocytes # (Auto) 0.4 TH/MM3 Monocytes # (Auto) 1.1 TH/MM3 Eosinophils # (Auto) 0.1 TH/MM3 Basophils # (Auto) 0.1 TH/MM3 CBC Comment DIFF FINAL Differential Comment Laboratory Tests Test 05/06/16 05/07/16 06:20 09:00 Sodium Level 136 MEQ/L 138 MEQ/L Potassium Level 4.1 MEQ/L 3.2 MEQ/L Chloride Level 98 MEQ/L 96 MEQ/L Carbon Dioxide Level 20.2 MEQ/L 26.2 MEQ/L Anion Gap 18 MEQ/L 16 MEQ/L Blood Urea Nitrogen 80 MG/DL 58 MG/DL Creatinine 10.17 MG/DL 7.56 MG/DL Estimat Glomerular Filtration 5 ML/MIN 7 ML/MIN Rate Random Glucose 88 MG/DL 97 MG/DL Calcium Level 6.9 MG/DL 7.6 MG/DL Protein Corrected Calcium 6.8 MG/DL Total Protein 7.4 GM/DL Microbiology Date/Time Procedure Status Source Growth 05/05/16 03:00 Aerobic Blood Culture - Preliminary Resulted Blood Peripheral NO GROWTH IN 2 DAYS 05/05/16 03:00 Anaerobic Blood Culture - Preliminary Resulted Blood Peripheral NO GROWTH IN 2 DAYS 05/05/16 03:06 Aerobic Blood Culture - Preliminary Resulted Blood Peripheral NO GROWTH IN 2 DAYS 05/05/16 03:06 Anaerobic Blood Culture - Preliminary Resulted Blood Peripheral NO GROWTH IN 2 DAYS Imaging Chest X-Ray 04/28/16 0000 Signed Impressions: Service Date/Time: Thursday, April 28, 2016 08:13 - CONCLUSION: No acute cardiopulmonary disease identified. Sterling Krishnamurthy MD Abdomen/Pelvis CT 04/24/16 0000 Signed Impressions: Service Date/Time: Sunday, April 24, 2016 15:39 - CONCLUSION: 1. Multiple fluid-filled bowel loops. No obstruction. 2. Large amount of abdominal ascites. 3. Atrophic bilateral kidneys with numerous calcifications and cysts. Brandon Romero MD Physical Exam GENERAL: awake and alert, NAD. SKIN: Warm and dry. No rashes, ecchymoses or embolic lesions. HEENT: [place] conjunctivae. No scleral icterus. No injection or drainage. Moist oral mucosa. NECK: Supple, nontender, no meningeal signs. CARDIOVASCULAR: Regular rate and rhythm without murmurs, gallops, or rubs. RESPIRATORY: Clear to auscultation. Breath sounds equal bilaterally. No wheezes , rales, or rhonchi. GASTROINTESTINAL: Abdomen less distended, softer, has tender induration where she had her previous cath. Has dry dressing in midline. EXTREMITIES: No pedal edema. NO calf tenderness NEUROLOGICAL: Non-focal PSYCH: Normal affect, calm and cooperative LINE: Permacath site ok Assessment & Plan Remarks IMPRESSION Peritonitis with Enterobacter, PD related - S/P removal of PD cath - Enterobacter becoming resistant, now KPC - S/P removal of PD cath C difficile colitis, seems mild Leukocytosis, better Cough, has mild L base infiltrate, symptoms better HIV, on HAART ESRD on PD RECOMMENDATION Continue Flagyl po for C diff colitis Continue Avycaz Continue levaquin If stable, possibly D/C Avycaz tomorrow Follow CBC Monitor progress Explained plan to patient Avani Blackwell MD May 07, 2016 12:37
[2016-05-07] MEDS: CALCIUM ACETATE 667 MG CAP PO SCH ×3 (13:00→18:00)
[2016-05-07] MEDS: LEVOFLOXACIN 250 MG TAB PO SCH (14:00)
[2016-05-07] MEDS: FAMOTIDINE 20 MG TAB PO SCH (14:00)
[2016-05-07] MEDS: LACTULOSE SYRUP 20 GM/30 ML CUP PO SCH (14:00)
[2016-05-07] MEDS: HEPARIN SODIUM - SQ 10,000 UNITS/ML VIAL SQ SCH ×2 (14:00→22:01)
[2016-05-07] MEDS: DOLUTEGRAVIR SODIUM 50 MG TAB PO SCH (22:00)
[2016-05-07] MEDS: RILPIVIRINE 25 MG TAB PO SCH (22:00)
[2016-05-07] MEDS: ATORVASTATIN 10 MG TAB PO SCH (22:00)
[2016-05-08] VITALS (7 sets, daily range): BP systolic 113–144; BP diastolic 78–90; PULSE 86–96; RESP 16–18; TEMP 97.9–99.2; O2SAT 98–100
[2016-05-08] MEDS: CALCIUM CARBONATE 500 MG CHEWABLE TAB CHEW SCH ×6 (04:00→23:35)
[2016-05-08] MEDS: cefTAZidime/AVIBACTAM INJ 0.94 GM in SODIUM CHLORIDE 0.9% INJ 50 ML IV SCH ×2 (04:08→14:05)
[2016-05-08] MEDS: ACETAMINOPHEN/HYDROcodone 325 MG/5 MG TAB PO PRN ×2 (04:08→23:34)
[2016-05-08] MEDS: metroNIDAZOLE 500 MG TAB PO SCH ×3 (05:37→21:15)
[2016-05-08 07:47] LABS: AUTOMATED NEUTROPHIL # 11.9 TH/MM3 (1.8-7.7); BASOPHIL # 0.1 TH/MM3 (0-0.2); BASOPHIL % 0.4 % (0.0-2.0); EOSINOPHIL # 0.1 TH/MM3 (0-0.4); EOSINOPHIL % 0.4 % (0.0-4.0); HEMATOCRIT 24.3 % (35.0-46.0); HEMO FLAGS DIFF FINAL; LYMPH % 6.1 % (9.0-44.0); LYMPHOCYTE # 0.9 TH/MM3 (1.0-4.8); MEAN CORPUSCULAR HGB CONC 32.9 % (32.0-36.0); MONO % 11.4 % (0.0-8.0); NEUT % 81.7 % (16.0-70.0); PLATELET COUNT 322 TH/MM3 (150-450); RED BLOOD COUNT 2.43 MIL/MM3 (4.00-5.30); RED CELL DISTRIBUTION WIDTH 16.1 % (11.6-17.2); WHITE BLOOD COUNT 14.5 TH/MM3 (4.0-11.0)
[2016-05-08 08:12] LABS: BICARBONATE 27.6 MEQ/L (21.0-32.0); POTASSIUM 4.2 MEQ/L (3.5-5.1)
[2016-05-08] MEDS: CALCIUM ACETATE 667 MG CAP PO SCH ×3 (08:42→17:33)
[2016-05-08] MEDS: LACTULOSE SYRUP 20 GM/30 ML CUP PO SCH (08:43)
[2016-05-08] MEDS: LACTOBACILLUS ACIDOPHILUS TAB PO SCH ×3 (08:44→17:33)
[2016-05-08] MEDS: LEVOFLOXACIN 250 MG TAB PO SCH (08:44)
[2016-05-08] MEDS: LABETALOL HCL 300 MG TAB PO SCH ×2 (08:44→21:14)
[2016-05-08] MEDS: HEPARIN SODIUM - SQ 10,000 UNITS/ML VIAL SQ SCH ×2 (08:44→21:17)
[2016-05-08] MEDS: FAMOTIDINE 20 MG TAB PO SCH (08:44)
[2016-05-08] MEDS: SODIUM CHLORIDE 0.9% FLUSH 5 ML FLUSH FLUSH SCH ×2 (08:44→21:17)
[2016-05-08] MEDS: POTASSIUM CHLORIDE 20 MEQ PWD PACKET PO SCH ×2 (08:49→21:00)
[2016-05-08] MEDS: POLYETHYLENE GLYCOL 17 GM PKG PO SCH ×2 (09:45→14:05)
--- NOTE | 2016-05-08 10:02 | HHI.NPPN ---
Subjective History of Present Illness 40 year old female with ESRD C dif colitis gr neg peritonitis Additional Remarks Patient is alert, still has abd. pain, not in distress. Review of Systems General Constitutional: Fatigue Gastrointestinal Gastrointestinal: Abdominal Pain Objective Data Data 05/07/16 05/08/16 19:00 07:00 Intake Total 440 ml 720 ml Output Total 2000 ml Balance -1560 ml 720 ml Intake Oral 440 ml 720 ml Hemodialysis 2000 ml # Voids 3 # Bowel Movements 0 1 Vital Signs Date Time Temp Pulse Resp B/P Pulse Ox O2 Delivery O2 Flow Rate FiO2 05/08/16 08:00 98.0 88 16 120/82 100 05/08/16 04:00 97.9 92 18 125/82 98 05/08/16 00:00 98.4 94 18 118/79 98 05/07/16 20:00 98.8 97 18 126/85 96 05/07/16 20:00 Room Air 05/07/16 16:00 98.6 88 16 117/77 100 05/07/16 12:00 97.8 88 18 109/76 98 -: 05/08/16 0730 05/08/16 0625 Physical Exam General Appearance: No Acute Distress, Comfortable Neck Neck Exam: Neck Supple Pulmonary Resp Exam: Breath Sounds Equal, Decreased Bases Cardiology CV Exam: Regular Gastrointestinal/Abdomen GI Exam: Soft, Non-Tender, Distended GI Remarks tender Neurologic Neuro Exam: Alert, Awake Assessment/Plan Problem List: (1) End stage kidney disease Plan: Patient is positive for C. difficile and is on metronidazole, gr Neg in PD fluid Enterobacter on Ceftazidime await out patient placement OK to discharge from Nephrology point of view Ceftazidime to be given with HD (2) Abdominal pain Plan: Likely due to C. difficile colitis Peritonitis gram neg (3) Clostridium difficile colitis Plan: Positive PCR (4) H/O parathyroidectomy Plan: on calcium supplement and continue with phosphorus binders with Victor Manuel Farrar MD May 08, 2016 10:02
[2016-05-08] MEDS ORDERED: POLYETHYLENE GLYCOL 17 GM PKG PO ONE (10:15)
--- NOTE | 2016-05-08 10:51 | HHI.IDPN ---
Subjective Subjective Remarks Notes reviewed Temps ok Abdominal pain continues to improve Had removal of Tenckhoff cath 05/03 WBC down to 16 Enterobacter KPC in fluid Had HD today Antibiotics Flagyl Avycaz Levaquin Lines PIV Permacath Past Medical History ESRD HIV stable HTN Past Surgical History PD cath placement Allergies: Coded Allergies: Iron Dextran (Verified Allergy, Severe, IRON INJECTIONS, 04/24/16) PT STATES THEY HAVE NOW CHANGED BRANDS OF IRON & SHE IS ABLE TO TAKE THE NEW BRAND OF IRON *MDRO Multi-Drug Resistant Organism (Verified Adverse Reaction, Unknown, ) KPC - E. cloacae (peritoneal fluid) - 05/04/16 Objective . Vital Signs Date Time Temp Pulse Resp B/P Pulse Ox O2 Delivery O2 Flow Rate FiO2 05/08/16 08:15 Room Air 05/08/16 08:00 98.0 88 16 120/82 100 05/08/16 04:00 97.9 92 18 125/82 98 05/08/16 00:00 98.4 94 18 118/79 98 05/07/16 20:00 98.8 97 18 126/85 96 05/07/16 20:00 Room Air 05/07/16 16:00 98.6 88 16 117/77 100 05/07/16 12:00 97.8 88 18 109/76 98 05/07/16 05/07/16 05/08/16 15:00 23:00 07:00 Intake Total 440 ml 480 ml 240 ml Output Total 2000 ml Balance -1560 ml 480 ml 240 ml Intake Oral 440 ml 480 ml 240 ml Hemodialysis 2000 ml # Voids 2 1 # Bowel Movements 0 0 1 . Laboratory Tests Test 05/07/16 05/08/16 09:00 07:30 White Blood Count 16.5 TH/MM3 14.5 TH/MM3 Red Blood Count 2.67 MIL/MM3 2.43 MIL/MM3 Hemoglobin 8.8 GM/DL 8.0 GM/DL Hematocrit 26.5 % 24.3 % Mean Corpuscular Volume 99.2 FL 100.0 FL Mean Corpuscular Hemoglobin 32.9 PG 33.0 PG Mean Corpuscular Hemoglobin 33.1 % 32.9 % Concent Red Cell Distribution Width 16.1 % 16.1 % Platelet Count 376 TH/MM3 322 TH/MM3 Mean Platelet Volume 9.0 FL 9.1 FL Neutrophils (%) (Auto) 89.8 % 81.7 % Lymphocytes (%) (Auto) 2.5 % 6.1 % Monocytes (%) (Auto) 6.7 % 11.4 % Eosinophils (%) (Auto) 0.6 % 0.4 % Basophils (%) (Auto) 0.4 % 0.4 % Neutrophils # (Auto) 14.9 TH/MM3 11.9 TH/MM3 Lymphocytes # (Auto) 0.4 TH/MM3 0.9 TH/MM3 Monocytes # (Auto) 1.1 TH/MM3 1.7 TH/MM3 Eosinophils # (Auto) 0.1 TH/MM3 0.1 TH/MM3 Basophils # (Auto) 0.1 TH/MM3 0.1 TH/MM3 CBC Comment DIFF FINAL DIFF FINAL Differential Comment Laboratory Tests Test 05/07/16 05/08/16 09:00 06:25 Sodium Level 138 MEQ/L 138 MEQ/L Potassium Level 3.2 MEQ/L 4.2 MEQ/L Chloride Level 96 MEQ/L 97 MEQ/L Carbon Dioxide Level 26.2 MEQ/L 27.6 MEQ/L Anion Gap 16 MEQ/L 13 MEQ/L Blood Urea Nitrogen 58 MG/DL 53 MG/DL Creatinine 7.56 MG/DL 8.47 MG/DL Estimat Glomerular Filtration 7 ML/MIN 6 ML/MIN Rate Random Glucose 97 MG/DL 86 MG/DL Calcium Level 7.6 MG/DL 7.5 MG/DL Imaging Chest X-Ray 04/28/16 0000 Signed Impressions: Service Date/Time: Thursday, April 28, 2016 08:13 - CONCLUSION: No acute cardiopulmonary disease identified. Sterling Krishnamurthy MD Abdomen/Pelvis CT 04/24/16 0000 Signed Impressions: Service Date/Time: Sunday, April 24, 2016 15:39 - CONCLUSION: 1. Multiple fluid-filled bowel loops. No obstruction. 2. Large amount of abdominal ascites. 3. Atrophic bilateral kidneys with numerous calcifications and cysts. Brandon Romero MD Physical Exam GENERAL: awake and alert, NAD. SKIN: Warm and dry. No rashes, ecchymoses or embolic lesions. HEENT: [place] conjunctivae. No scleral icterus. No injection or drainage. Moist oral mucosa. NECK: Supple, nontender, no meningeal signs. CARDIOVASCULAR: Regular rate and rhythm without murmurs, gallops, or rubs. RESPIRATORY: Clear to auscultation. Breath sounds equal bilaterally. No wheezes , rales, or rhonchi. GASTROINTESTINAL: Abdomen less distended, softer, has tender induration where she had her previous cath, this is stable. Has dry dressing in midline. EXTREMITIES: No pedal edema. NO calf tenderness NEUROLOGICAL: Non-focal PSYCH: Normal affect, calm and cooperative LINE: Permacath site ok Assessment & Plan Remarks IMPRESSION Peritonitis with Enterobacter, PD related - S/P removal of PD cath - Enterobacter becoming resistant, now KPC - S/P removal of PD cath C difficile colitis, seems mild Leukocytosis, better Cough, has mild L base infiltrate, symptoms better HIV, on HAART ESRD on PD RECOMMENDATION Continue Flagyl po for C diff colitis Continue Avycaz while in the hospital Continue levaquin When she gets D/C - give Levaquin and Flagyl x 14 more days Monitor progress Explained plan to patient Avani Blackwell MD May 08, 2016 10:51
--- NOTE | 2016-05-08 11:43 | HHI.FPPN ---
Subjective Remarks No acute events overnight. Vital signs grossly unremarkable. This morning she states that she continues to do better. Only has abdominal pain after excessive exertion but quickly recovers after resting and pain medication. She feels that she can go very soon. Of note she is complaining of continued constipation and does not want to take lactulose as this take did cause loose stools. (Ariela Regan MD R2) Objective Vitals Vital Signs Date Time Temp Pulse Resp B/P Pulse Ox O2 Delivery O2 Flow Rate FiO2 05/08/16 08:15 Room Air 05/08/16 08:00 98.0 88 16 120/82 100 05/08/16 04:00 97.9 92 18 125/82 98 05/08/16 00:00 98.4 94 18 118/79 98 05/07/16 20:00 98.8 97 18 126/85 96 05/07/16 20:00 Room Air 05/07/16 16:00 98.6 88 16 117/77 100 05/07/16 12:00 97.8 88 18 109/76 98 I/O 05/07/16 05/07/16 05/07/16 05/08/16 05/08/16 05/08/16 07:00 15:00 23:00 07:00 15:00 23:00 Intake Total 120 ml 440 ml 480 ml 240 ml Output Total 2000 ml Balance 120 ml -1560 ml 480 ml 240 ml Intake Oral 120 ml 440 ml 480 ml 240 ml Hemodialysis 2000 ml # Voids 1 2 1 # Bowel Movements 0 0 0 1 (Ariela Regan MD R2) Result Diagram: 05/08/16 0730 05/08/16 0625 Objective Remarks Gen.: No acute distress walking around in the room. Cardiovascular: Regular rate and rhythm. No murmurs, rubs or gallops. Respiratory: Lungs clear to auscultation bilaterally. No wheezes or rhonchi. Abdomen: Soft, minimally tender to palpation in the epigastric region. Nondistended. No peritoneal signs. Musculoskeletal: No gross deformities. No edema. Normal gait Psych: Appropriate mood and affect (Ariela Regan MD R2) A/P Assessment and Plan 40-year-old -Maldivian female with PMH of ESRD, HTN, HIV. Was admitted for C. difficile and peritonitis. Discharge Planning Likely tomorrow PT: Wheeled walker, home with no PT recommendations dw Dr. Paulson and Dr[facility]aines [facility] Attending Attestation Patient seen and examined. Case reviewed and discussed with the resident team. Agree with plan of care as discussed with me and documented in the resident note. she continues to improve clinically and is visiting with her daughter and sitting up and able to walk around her room very well. hope she can go home soon (Vero Paulson MD) Problem List: (1) SBP (spontaneous bacterial peritonitis) Status: Acute Plan: Found to have SBP with Enterobacter cloacae sensitive to ceftazidime. After initial failed treatment with antibiotics, patient has not had significant improvement in abdominal pain after removal of Tenkhoff on 05/03/16 and discontinuation of peritoneal dialysis. Pt also found to have C diff, positive PCR. -Leukocytosis continues to improve -Peritoneal fluids diagnostic of SBP with elevated absolute PMN >250 and positive culture. Repeat fluid analysis continued to show elevated PMN. Infectious disease consulted recommendations appreciated * Peritonitis related to peritoneal dialysis * Continue Flagyl, Levaquin and ceftazidime/avibactam while in hospital * When she gets discharged, we'll need Levaquin and Flagyl 14 more days Imaging: * CT abdomen/pelvis 04/24: Multiple fluid-filled bowel loops. No obstruction. Large amount of abdominal ascites. * CT abdomen/pelvis 04/29:Equal changes and left lung base. Fluid with no free air.Dialysis catheter in good position. Retroperitoneum unremarkable. Extensive vascular calcifications noted. Osteoporotic bone with history of renal failure. No obvious etiology for patient's diffuse abdominal pain. Meds: * Ceftazidime/Avibactam (05/02- * Levaquin (05/04- * Flagyl 500mg PO q8H (04/25- * Ceftriaxone 2g (04/24-04/26) * ceftazidime 1 g daily IP (04/26-05/01) * Meropenem 500mg daily (04/30-05/02) (2) End stage kidney disease Status: Chronic Plan: Patient history of end-stage renal disease. Now receiving hemodialysis Nephrology consulted: Appreciate recommendations * Continue to replace and calcium; patient currently refusing * Continue with phosphorus binders * hemodialysis * Okay to discharge (3) Clostridium difficile colitis Status: Acute Plan: -See above (peritonitis) (4) HIV (human immunodeficiency virus infection) Status: Chronic Plan: HIV medications recently adjusted and verified. HIV physician is Dr Sukumar Ojeda ([phone]). -Continue with current home HIV medications at this time. (5) Hypertension Status: Chronic Plan: Patient has a long-standing history of hypertension currently with multiple episodes of asymptomatic hypotension * Holding patient's lisinopril * labetalol to 150mg BID * HOLDING amlodipine 5mg daily * Labetalol 150mg when necessary BID to be used before hydralazine * Hydralazine when necessary elevated blood pressure (6) Nutrition, metabolism, and development symptoms Status: Acute Plan: Diet: Renal diet as tolerated, patient agrees to enhance diet with protein added liquid supplements Fluids: None Electrolytes: KCl 20 daily liquid, Tums, PhosLo DVT PPX: Heparin 5000 units Q12HR GI PPX: Pepcid Constipation: * Miralax daily (Ariela Regan MD R2) Problem Qualifiers (1) Hypertension: Qualified Code: I15.1 - Hypertension secondary to other renal disorders rAiela Reagn MD R2 May 08, 2016 11:43 Vero Paulson MD May 08, 2016 14:09
--- NOTE | 2016-05-08 13:14 | HHI.DCPOC ---
Discharge Care Plan Diagnosis: (1) SBP (spontaneous bacterial peritonitis) (2) Peritonitis (3) End stage kidney disease Goals to Promote Your Health * To prevent worsening of your condition and complications * To maintain your health at the optimal level Directions to Meet Your Goals Take your medications as prescribed Follow your dietary instruction Follow activity as directed Keep your appointments as scheduled Take your immunizations and boosters as scheduled If your symptoms worsen call your PCP, if no PCP go to Urgent Care Center or Emergency Room Smoking is Dangerous to Your Health. Avoid second hand smoke Call the 24-hour hour crisis hotline for domestic abuse at Ariela Regan MD R2 May 08, 2016 13:14
[2016-05-08] MEDS: ATORVASTATIN 10 MG TAB PO SCH (21:13)
[2016-05-08] MEDS: RILPIVIRINE 25 MG TAB PO SCH (21:14)
[2016-05-08] MEDS: DOLUTEGRAVIR SODIUM 50 MG TAB PO SCH (21:16)
[2016-05-09] VITALS: BP 109/65; PULSE 95; RESP 18; TEMP 98.6; O2SAT 99
[2016-05-09] MEDS: CALCIUM CARBONATE 500 MG CHEWABLE TAB CHEW SCH ×3 (04:00→12:00)
[2016-05-09] MEDS: cefTAZidime/AVIBACTAM INJ 0.94 GM in SODIUM CHLORIDE 0.9% INJ 50 ML IV SCH ×2 (04:02→14:59)
[2016-05-09 04:57] VITALS: BP 119/84; PULSE 88; RESP 20; TEMP 98; O2SAT 100
[2016-05-09] MEDS: metroNIDAZOLE 500 MG TAB PO SCH ×2 (05:44→15:03)
[2016-05-09 08:00] VITALS: BP 122/84; PULSE 88; RESP 20; TEMP 98.6; O2SAT 100
[2016-05-09 08:11] LABS: AUTOMATED NEUTROPHIL # 10.7 TH/MM3 (1.8-7.7); BASOPHIL # 0.1 TH/MM3 (0-0.2); BASOPHIL % 0.5 % (0.0-2.0); EOSINOPHIL # 0.1 TH/MM3 (0-0.4); EOSINOPHIL % 0.4 % (0.0-4.0); HEMO FLAGS DIFF FINAL; LYMPH % 5.1 % (9.0-44.0); LYMPHOCYTE # 0.7 TH/MM3 (1.0-4.8); MEAN CELL VOLUME 100.4 FL (80.0-100.0); MEAN CORPUSCULAR HGB CONC 33.8 % (32.0-36.0); MONO % 10.5 % (0.0-8.0); NEUT % 83.5 % (16.0-70.0); PLATELET COUNT 323 TH/MM3 (150-450); RED BLOOD COUNT 2.69 MIL/MM3 (4.00-5.30); RED CELL DISTRIBUTION WIDTH 17.7 % (11.6-17.2); WHITE BLOOD COUNT 12.8 TH/MM3 (4.0-11.0)
[2016-05-09 08:35] LABS: BICARBONATE 25.4 MEQ/L (21.0-32.0); POTASSIUM 4.3 MEQ/L (3.5-5.1)
[2016-05-09] MEDS: LABETALOL HCL 300 MG TAB PO SCH (09:00)
[2016-05-09] MEDS: POLYETHYLENE GLYCOL 17 GM PKG PO SCH (09:00)
[2016-05-09] MEDS: LACTOBACILLUS ACIDOPHILUS TAB PO SCH ×2 (09:00→15:03)
[2016-05-09] MEDS: CALCIUM ACETATE 667 MG CAP PO SCH ×2 (09:00→13:00)
[2016-05-09] MEDS ORDERED: LEVA250T PO ×2 (09:28→17:24)
[2016-05-09] MEDS ORDERED: LABE100T2 PO ×2 (09:28→17:24)
[2016-05-09] MEDS ORDERED: POTA10PO PO ×2 (09:28→17:24)
[2016-05-09] MEDS ORDERED: HYDR-3516 PO ×2 (09:28→17:23)
[2016-05-09] MEDS ORDERED: FAMO1TAB30 PO ×2 (09:28→17:24)
[2016-05-09] MEDS ORDERED: POLY17S PO ×2 (09:28→17:24)
[2016-05-09] MEDS ORDERED: METR-1 PO ×2 (09:28→17:24)
[2016-05-09] MEDS ORDERED: LIPI10TA PO (09:28)
[2016-05-09] MEDS ORDERED: BISACODYL 10 MG SUPP RECTAL ONE (09:30)
[2016-05-09 10:07] LABS: CALCIUM-PROTEIN CORRECTED 7.2 MG/DL (8.5-10.1)
--- NOTE | 2016-05-09 10:17 | HHI.NPPN ---
Subjective History of Present Illness 40 year old female with ESRD C dif colitis gr neg peritonitis Additional Remarks Patient is alert, still has abd. pain, not in distress. Review of Systems General Constitutional: Fatigue Gastrointestinal Gastrointestinal: Abdominal Pain Objective Data Data 05/08/16 05/09/16 19:00 07:00 Intake Total 772 ml 1400 ml Output Total 0 ml Balance 772 ml 1400 ml Intake Oral 720 ml 1400 ml IV Total 52 ml Output Urine Total 0 ml # Voids 1 # Bowel Movements 1 1 Vital Signs Date Time Temp Pulse Resp B/P Pulse Ox O2 Delivery O2 Flow Rate FiO2 05/09/16 08:00 98.6 88 20 122/84 100 05/09/16 04:57 98.0 88 20 119/84 100 05/09/16 00:00 98.6 95 18 109/65 99 05/08/16 23:30 Room Air 05/08/16 20:00 98.7 96 18 127/78 98 05/08/16 20:00 Room Air 05/08/16 16:00 99.2 86 18 144/90 100 05/08/16 12:00 98.0 92 16 113/83 98 05/08/16 10:26 100 21 -: 05/09/16 0655 05/09/16 0655 Physical Exam General Appearance: No Acute Distress, Comfortable Neck Neck Exam: Neck Supple Pulmonary Resp Exam: Breath Sounds Equal, Decreased Bases Cardiology CV Exam: Regular Gastrointestinal/Abdomen GI Exam: Soft, Non-Tender, Distended GI Remarks tender Neurologic Neuro Exam: Alert, Awake Assessment/Plan Problem List: (1) End stage kidney disease Plan: Patient is positive for C. difficile and is on metronidazole, gr Neg in PD fluid constipation Sorbitol ordered Enterobacter on Ceftazidime await out patient placement OK to discharge from Nephrology point of view Ceftazidime to be given with HD next HD today [id number] seen during HD 2 L UF tolerating it well (2) Abdominal pain Plan: Likely due to C. difficile colitis Peritonitis gram neg (3) Clostridium difficile colitis Plan: Positive PCR (4) H/O parathyroidectomy Plan: on calcium supplement and continue with phosphorus binders with Victor Manuel Farrar MD May 09, 2016 10:17
--- NOTE | 2016-05-09 10:55 | HHI.FPPN ---
Subjective Remarks Patient seen and examined this morning. No acute events overnight with VSS. Patient states that she feels much better and is ready to go home once her hemodialysis is set up. Her only complaint today is constipation. She last had a BM on 05/06 per patient (yesterday per chart review). She cannot remember the medications she takes daily, but was reminded that she received a suppository and started on Miralax to assist her BMs. Otherwise she has no complaints and denies any fevers, SOB, chest pain, NVD, or calf tenderness. (Candelario Gaines MD R1) Objective Vitals Vital Signs Date Time Temp Pulse Resp B/P Pulse Ox O2 Delivery O2 Flow Rate FiO2 05/09/16 08:00 98.6 88 20 122/84 100 05/09/16 04:57 98.0 88 20 119/84 100 05/09/16 00:00 98.6 95 18 109/65 99 05/08/16 23:30 Room Air 05/08/16 20:00 98.7 96 18 127/78 98 05/08/16 20:00 Room Air 05/08/16 16:00 99.2 86 18 144/90 100 05/08/16 12:00 98.0 92 16 113/83 98 I/O 05/08/16 05/08/16 05/08/16 05/09/16 05/09/16 05/09/16 07:00 15:00 23:00 07:00 15:00 23:00 Intake Total 240 ml 772 ml 800 ml 600 ml Output Total 0 ml Balance 240 ml 772 ml 800 ml 600 ml Intake Oral 240 ml 720 ml 800 ml 600 ml IV Total 52 ml Output Urine Total 0 ml # Voids 1 1 # Bowel Movements 1 1 1 0 (Candelario Gaines MD R1) Result Diagram: 05/09/16 0655 05/09/16 0655 Objective Remarks Gen.: Thin AAF lying in bed in NAD. Cardiovascular: Regular rate and rhythm. No murmurs, rubs or gallops. Respiratory: Lungs clear to auscultation bilaterally. No wheezes or rhonchi. Abdomen: Soft, minimally tender to palpation in the epigastric region. Nondistended. No peritoneal signs.+BS. Musculoskeletal: No gross deformities. No edema. Normal gait Psych: Appropriate mood and affect (Candelario Gaines MD R1) A/P Assessment and Plan Ms. Wynn is a 40-year-old -Dominican female with PMH of ESRD, HTN, HIV admitted for C. difficile and peritonitis. Discharge Planning Likely tomorrow pending outpatient hemodialysis orders/schedule for TTS PT: Wheeled walker, home with no PT recommendations DW: Dr. Wilson WDW: Dr. Paulson (Candelario Gaines MD R1) Attending Attestation Patient seen and examined. Case reviewed and discussed with the resident team. Agree with plan of care as discussed with me and documented in the resident note. she feels very well and is eager to go home (Vero Paulson MD) Problem List: (1) SBP (spontaneous bacterial peritonitis) Status: Acute Plan: Found to have SBP with Enterobacter cloacae sensitive to ceftazidime. After initial failed treatment with antibiotics, patient has not had significant improvement in abdominal pain after removal of Tenkhoff on 05/03/16 and discontinuation of peritoneal dialysis. Pt also found to have C diff, positive PCR. -Leukocytosis continues to improve -Peritoneal fluids diagnostic of SBP with elevated absolute PMN >250 and positive culture. Repeat fluid analysis continued to show elevated PMN. Infectious disease consulted recommendations appreciated * Peritonitis related to peritoneal dialysis * Continue Flagyl, Levaquin and ceftazidime/avibactam while in hospital * When she gets discharged, she will need Levaquin and Flagyl 14 more days Imaging: * CT abdomen/pelvis 04/24: Multiple fluid-filled bowel loops. No obstruction. Large amount of abdominal ascites. * CT abdomen/pelvis 04/29:Equal changes and left lung base. Fluid with no free air.Dialysis catheter in good position. Retroperitoneum unremarkable. Extensive vascular calcifications noted. Osteoporotic bone with history of renal failure. No obvious etiology for patient's diffuse abdominal pain. Meds: * Ceftazidime/Avibactam (05/02- * Levaquin (05/04- * Flagyl 500mg PO q8H (04/25- * Ceftriaxone 2g (04/24-04/26) * ceftazidime 1 g daily IP (04/26-05/01) * Meropenem 500mg daily (04/30-05/02) (2) End stage kidney disease Status: Chronic Plan: Patient history of end-stage renal disease. Now receiving hemodialysis Nephrology consulted: Appreciate recommendations * Continue to replace and calcium; patient currently refusing * Continue with phosphorus binders * Hemodialysis * Okay to discharge (3) Clostridium difficile colitis Status: Acute Plan: -See above (peritonitis) (4) HIV (human immunodeficiency virus infection) Status: Chronic Plan: HIV medications recently adjusted and verified. HIV physician is Dr Sukumar Ojeda ([phone]). -Continue with current home HIV medications at this time. (5) Hypertension Status: Chronic Plan: Patient has a long-standing history of hypertension currently with multiple episodes of asymptomatic hypotension * Holding patient's lisinopril * labetalol to 150mg BID * HOLDING amlodipine 5mg daily * Labetalol 150mg when necessary BID to be used before hydralazine * Hydralazine when necessary elevated blood pressure (6) Nutrition, metabolism, and development symptoms Status: Acute Plan: Diet: Renal diet as tolerated, patient agrees to enhance diet with protein added liquid supplements Fluids: None Electrolytes: KCl 20 daily liquid, Tums, PhosLo DVT PPX: Heparin 5000 units Q12HR GI PPX: Pepcid Constipation: * Miralax daily * Ducolax suppository x1 today * Sorbitol daily per Nephrology (Candelario Gaines MD R1) Problem Qualifiers (1) Hypertension: Qualified Code: I15.1 - Hypertension secondary to other renal disorders Candelario Gaines MD R1 May 09, 2016 10:54 Vero Paulson MD May 16, 2016 15:35
--- NOTE | 2016-05-09 13:11 | HHI.IDPN ---
Subjective Subjective Remarks Notes reviewed D/W RN Having HD Temps ok Abdominal pain continues to improve Had removal of Tenckhoff cath 05/03 WBC down to 12 Enterobacter KPC in fluid Antibiotics Flagyl Avycaz Levaquin Lines PIV Permacath Past Medical History ESRD HIV stable HTN Past Surgical History PD cath placement Allergies: Coded Allergies: Iron Dextran (Verified Allergy, Severe, IRON INJECTIONS, 04/24/16) PT STATES THEY HAVE NOW CHANGED BRANDS OF IRON & SHE IS ABLE TO TAKE THE NEW BRAND OF IRON *MDRO Multi-Drug Resistant Organism (Verified Adverse Reaction, Unknown, ) KPC - E. cloacae (peritoneal fluid) - 05/04/16 Objective . Vital Signs Date Time Temp Pulse Resp B/P Pulse Ox O2 Delivery O2 Flow Rate FiO2 05/09/16 08:00 98.6 88 20 122/84 100 05/09/16 07:15 Room Air 05/09/16 04:57 98.0 88 20 119/84 100 05/09/16 00:00 98.6 95 18 109/65 99 05/08/16 23:30 Room Air 05/08/16 20:00 98.7 96 18 127/78 98 05/08/16 20:00 Room Air 05/08/16 16:00 99.2 86 18 144/90 100 05/08/16 05/08/16 05/09/16 15:00 23:00 07:00 Intake Total 772 ml 800 ml 600 ml Output Total 0 ml Balance 772 ml 800 ml 600 ml Intake Oral 720 ml 800 ml 600 ml IV Total 52 ml Output Urine Total 0 ml # Voids 1 # Bowel Movements 1 1 0 . Laboratory Tests Test 05/08/16 05/09/16 07:30 06:55 White Blood Count 14.5 TH/MM3 12.8 TH/MM3 Red Blood Count 2.43 MIL/MM3 2.69 MIL/MM3 Hemoglobin 8.0 GM/DL 9.2 GM/DL Hematocrit 24.3 % 27.0 % Mean Corpuscular Volume 100.0 FL 100.4 FL Mean Corpuscular Hemoglobin 33.0 PG 34.0 PG Mean Corpuscular Hemoglobin 32.9 % 33.8 % Concent Red Cell Distribution Width 16.1 % 17.7 % Platelet Count 322 TH/MM3 323 TH/MM3 Mean Platelet Volume 9.1 FL 9.2 FL Neutrophils (%) (Auto) 81.7 % 83.5 % Lymphocytes (%) (Auto) 6.1 % 5.1 % Monocytes (%) (Auto) 11.4 % 10.5 % Eosinophils (%) (Auto) 0.4 % 0.4 % Basophils (%) (Auto) 0.4 % 0.5 % Neutrophils # (Auto) 11.9 TH/MM3 10.7 TH/MM3 Lymphocytes # (Auto) 0.9 TH/MM3 0.7 TH/MM3 Monocytes # (Auto) 1.7 TH/MM3 1.3 TH/MM3 Eosinophils # (Auto) 0.1 TH/MM3 0.1 TH/MM3 Basophils # (Auto) 0.1 TH/MM3 0.1 TH/MM3 CBC Comment DIFF FINAL DIFF FINAL Differential Comment Laboratory Tests Test 05/08/16 05/09/16 06:25 06:55 Sodium Level 138 MEQ/L 134 MEQ/L Potassium Level 4.2 MEQ/L 4.3 MEQ/L Chloride Level 97 MEQ/L 95 MEQ/L Carbon Dioxide Level 27.6 MEQ/L 25.4 MEQ/L Anion Gap 13 MEQ/L 14 MEQ/L Blood Urea Nitrogen 53 MG/DL 65 MG/DL Creatinine 8.47 MG/DL 11.23 MG/DL Estimat Glomerular Filtration 6 ML/MIN 5 ML/MIN Rate Random Glucose 86 MG/DL 107 MG/DL Calcium Level 7.5 MG/DL 7.4 MG/DL Protein Corrected Calcium 7.2 MG/DL Total Protein 7.7 GM/DL Imaging Chest X-Ray 04/28/16 0000 Signed Impressions: Service Date/Time: Thursday, April 28, 2016 08:13 - CONCLUSION: No acute cardiopulmonary disease identified. Sterling Krishnamurthy MD Abdomen/Pelvis CT 04/24/16 0000 Signed Impressions: Service Date/Time: Sunday, April 24, 2016 15:39 - CONCLUSION: 1. Multiple fluid-filled bowel loops. No obstruction. 2. Large amount of abdominal ascites. 3. Atrophic bilateral kidneys with numerous calcifications and cysts. Brandon Romero MD Physical Exam GENERAL: awake and alert, NAD. SKIN: Warm and dry. No rashes, ecchymoses or embolic lesions. HEENT: [place] conjunctivae. No scleral icterus. No injection or drainage. Moist oral mucosa. NECK: Supple, nontender, no meningeal signs. CARDIOVASCULAR: Regular rate and rhythm without murmurs, gallops, or rubs. RESPIRATORY: Clear to auscultation. Breath sounds equal bilaterally. No wheezes , rales, or rhonchi. GASTROINTESTINAL: Abdomen less distended, softer, has tender induration where she had her previous cath, this is stable. Has dry dressing in midline. EXTREMITIES: No pedal edema. NO calf tenderness NEUROLOGICAL: Non-focal PSYCH: Normal affect, calm and cooperative LINE: Permacath site ok Assessment & Plan Remarks IMPRESSION Peritonitis with Enterobacter, PD related - S/P removal of PD cath - Enterobacter becoming resistant, now KPC - S/P removal of PD cath C difficile colitis, seems mild Leukocytosis, better Cough, has mild L base infiltrate, symptoms better HIV, on HAART ESRD on PD RECOMMENDATION Continue Flagyl po for C diff colitis Continue Avycaz while in the hospital Continue levaquin When she gets D/C - give Levaquin and Flagyl x 14 more days D/C plans soon D/W Avani Abarca MD May 09, 2016 13:11
[2016-05-09] MEDS ORDERED: SORBITOL 70% SOLN 30 ML CUP PO ONE (14:30)
[2016-05-09] MEDS: POTASSIUM CHLORIDE 20 MEQ PWD PACKET PO SCH (14:59)
[2016-05-09] MEDS: FAMOTIDINE 20 MG TAB PO SCH (15:02)
[2016-05-09] MEDS: HEPARIN SODIUM - SQ 10,000 UNITS/ML VIAL SQ SCH (15:02)
[2016-05-09] MEDS: LEVOFLOXACIN 250 MG TAB PO SCH (15:04)
[2016-05-09] MEDS: ACETAMINOPHEN/HYDROcodone 325 MG/5 MG TAB PO PRN (15:11)
[2016-05-09] MEDS ORDERED: School Note (15:34)
[2016-05-09 16:00] VITALS: BP 109/74; PULSE 97; RESP 20; TEMP 98.3; O2SAT 100
[2016-05-10] MEDS ORDERED: SORBITOL 70% SOLN 30 ML CUP PO SCH (09:00)
--- NOTE | 2016-06-03 07:47 | MP ---
cc: JORI BARRIOS DATE OF SURGERY: 05/06/2016 PREOPERATIVE DIAGNOSIS Infected peritoneal dialysis catheter. POSTOPERATIVE DIAGNOSIS Infected peritoneal dialysis catheter. OPERATIVE PROCEDURE Removal of peritoneal dialysis catheter. SURGEON Trell Barrios ANESTHESIA Local MAC. DESCRIPTION OF OPERATIVE PROCEDURE With the patient in the supine position and under IV sedation the abdomen was prepped with Betadine and draped in a sterile fashion. Skin and subcutaneous tissue surrounding the peritoneal dialysis catheter placement scar was infiltrated with 0.5% Marcaine with epinephrine. The old scar was re-incised, dissection continued sharply through the underlying sclerotic tissue. The intramuscular and subcutaneous catheter cuffs were completely mobilized free. The intraperitoneal and subcutaneous portions of the catheter were removed entirely. The wound was irrigated with saline and the incision was secured with continuous subcuticular 5-0 Monocryl, reinforced with Steri-Strips and covered with sterile gauze. Instrument, needle, sponge count correct x2. There were no operative complications. The patient returned to the recovery room in stable condition having tolerated the procedure well. Jori Barrios MD JDIRK/MARY /3:29 PM /7:44 AM
--- NOTE | 2016-06-20 18:45 | HHI.DS ---
Discharge Summary Admission Date Apr 24, 2016 at 16:44 Discharge Date: May 09, 2016 Admitting Diagnosis diarrhea (1) SBP (spontaneous bacterial peritonitis) Diagnosis: Principal Plan: Found to have SBP with Enterobacter cloacae sensitive to ceftazidime. After initial failed treatment with antibiotics, patient has not had significant improvement in abdominal pain after removal of Tenkhoff on 05/03/16 and discontinuation of peritoneal dialysis. Pt also found to have C diff, positive PCR. -Leukocytosis continues to improve -Peritoneal fluids diagnostic of SBP with elevated absolute PMN >250 and positive culture. Repeat fluid analysis continued to show elevated PMN. Infectious disease consulted recommendations appreciated * Peritonitis related to peritoneal dialysis * Continue Flagyl, Levaquin and ceftazidime/avibactam while in hospital * When she gets discharged, she will need Levaquin and Flagyl 14 more days Imaging: * CT abdomen/pelvis 04/24: Multiple fluid-filled bowel loops. No obstruction. Large amount of abdominal ascites. * CT abdomen/pelvis 04/29:Equal changes and left lung base. Fluid with no free air.Dialysis catheter in good position. Retroperitoneum unremarkable. Extensive vascular calcifications noted. Osteoporotic bone with history of renal failure. No obvious etiology for patient's diffuse abdominal pain. Meds: * Ceftazidime/Avibactam (05/02- * Levaquin (05/04- * Flagyl 500mg PO q8H (04/25- * Ceftriaxone 2g (04/24-04/26) * ceftazidime 1 g daily IP (04/26-05/01) * Meropenem 500mg daily (04/30-05/02) (2) End stage kidney disease Diagnosis: Secondary Plan: Patient history of end-stage renal disease. Now receiving hemodialysis Nephrology consulted: Appreciate recommendations * Continue to replace and calcium; patient currently refusing * Continue with phosphorus binders * Hemodialysis * Okay to discharge (3) Clostridium difficile colitis Diagnosis: Principal Plan: -See above (peritonitis) (4) HIV (human immunodeficiency virus infection) Diagnosis: Secondary Plan: HIV medications recently adjusted and verified. HIV physician is Dr Sukumar Ojeda ([phone]). -Continue with current home HIV medications at this time. (5) Hypertension Diagnosis: Secondary Plan: Patient has a long-standing history of hypertension currently with multiple episodes of asymptomatic hypotension * Holding patient's lisinopril * labetalol to 150mg BID * HOLDING amlodipine 5mg daily * Labetalol 150mg when necessary BID to be used before hydralazine * Hydralazine when necessary elevated blood pressure (6) Nutrition, metabolism, and development symptoms Diagnosis: Principal Plan: Diet: Renal diet as tolerated, patient agrees to enhance diet with protein added liquid supplements Fluids: None Electrolytes: KCl 20 daily liquid, Tums, PhosLo DVT PPX: Heparin 5000 units Q12HR GI PPX: Pepcid Constipation: * Miralax daily * Ducolax suppository x1 today * Sorbitol daily per Nephrology Brief History This is a 40-year-old -Thai female with past history significant for end-stage renal disease, hypertension, and HIV for over 10 years. She is presenting today [facility] due to severe abdominal pain and diarrhea. About 3- 4 days ago she had a cold and the cold began to worsen and her abdominal pain started 3 days ago. She started having diarrhea 3 days ago as well. She says the diarrhea occurs every time she coughs. She denies any nausea or vomiting during this timeframe. Abdominal pain progressively worsened throughout the last few days and she's been feeling feverish and chills. She reports getting peritoneal dialysis every day 3 times a day however her last round of dialysis was Friday04/23/16 and she only did it one time that day, because she was feeling too sick to perform the dialysis. Prior to seeing the patient case of been discussed between the ED doctor and the director china who will be evaluating for possible SBP and need for antibiotics. Patient reports that the abdominal pain is diffuse throughout her entire body, and she feels like her belly is slightly swollen. She thinks the swelling is due to the fact that she has not had her dialysis. PE at Discharge Gen.: Thin AAF lying in bed in NAD. Cardiovascular: Regular rate and rhythm. No murmurs, rubs or gallops. Respiratory: Lungs clear to auscultation bilaterally. No wheezes or rhonchi. Abdomen: Soft, minimally tender to palpation in the epigastric region. Nondistended. No peritoneal signs.+BS. Musculoskeletal: No gross deformities. No edema. Normal gait Psych: Appropriate mood and affect Hospital Course Patient admitted to medicine service for C. difficile colitis. She was then started on Flagyl and Dilaudid for abdominal pain. Nephrology was consulted for peritoneal dialysis. Peritoneal fluid collection showed Enterobacter on culture sensitive to ceftazidime. Infectious disease was consulted continue the ceftazidime and transitioned her to by mouth Flagyl for C. difficile colitis. Her peritoneal dialysis catheter was removed and a Tenckhoff catheter was placed as this was likely infectious source for her peritonitis. She then developed a mild cough with a left lung base infiltrate on x-ray. She was started on Levaquin for possible pneumonia per infectious disease. She was then discharged home on 05/09/16 with Levaquin and Flagyl for 14 more days to cover for her pneumonia and C. difficile colitis respectively. At the time of her discharge, her blood pressure medications were changed to labetalol 150 mg twice a day and her amlodipine as well as lisinopril were canceled. Her HAART medications were continued throughout the hospitalization. She was then instructed to follow-up with her PCP in 1 week as well as nephrology. Pt Condition on Discharge: Stable Discharge Disposition: Discharge Home Discharge Instructions DIET: Follow Instructions for: Renal Failure Diet Activities you can perform: Regular-No Restrictions Follow up Referrals: Appointment for Follow Up - 1 Week Nephrology - 1 Week New Medications: Famotidine (Famotidine) 10 Mg Tab 10 MG PO DAILY #30 TAB Labetalol (Labetalol) 100 Mg Tab 150 MG PO BID Blood Pressure Management #90 TAB ([School Note]) Hydrocodone-Acetaminophen (Hydrocodone-Acetaminophen) 5-325 mg Tab 1 TAB PO Q4H PRN PAIN SCALE 4 TO 10 #21 Ref 0 TAB Levofloxacin (Levaquin) 250 Mg Tab 250 MG PO DAILY #14 Ref 0 TAB Metronidazole (Flagyl) 500 Mg Tab 500 MG PO Q8HR #42 Ref 0 TAB Polyethylene Glycol 3350 Powder (Polyethylene Glycol 3350 Powder) 17 Gm Pow 17 GM PO DAILY #1 Ref 0 BOTTLE Potassium Chloride Powder (Potassium Chloride Powder) 20 Meq Powderpack 20 MEQ PO DAILY #30 Ref 0 UNITS Continued Medications: Atorvastatin (Lipitor) 10 Mg Tab 10 MG PO HS Cholesterol Management #30 Ref 0 TAB B-Complex W/ C & Folic Acid (Cynthia-Yaquelin) 1 Tab 1 TAB PO DAILY TAB Calcium Acetate (Phosphate Binder) (Phoslo) 667 Mg Cap 2001 MG PO TID Hyperphosphatemia #270 Ref 0 CAP Calcium Carbonate (Antacid) (Tums Ultra 1000) 1,000 Mg Chew 4000 MG CHEW DAILY TAB Dolutegravir (Tivicay) 50 Mg Tab 50 MG PO DAILY Mgmt Viral Infection #30 Ref 0 TAB Lamivudine (Epivir) 150 Mg Tab 150 MG PO BID Mgmt Viral Infection #60 Ref 0 TAB Rilpivirine (Edurant) 25 Mg Tab 25 MG PO DAILY Mgmt Viral Infection #30 Ref 0 TAB Discontinued Medications: Amlodipine (Amlodipine) 10 Mg Tab 10 MG PO DAILY Blood Pressure Management #[address] Ref [address] (Aspir-Low) 81 Mg Tabdr 81 MG PO DAILY Labetalol (Labetalol) 300 Mg Tab 300 MG PO TID Blood Pressure Management Ref 0 TAB Lisinopril (Lisinopril) 20 Mg Tab 20 MG PO BID #30 Ref 0 TAB Pantoprazole (Pantoprazole) 40 Mg Tab 40 MG PO DAILY Reflux #30 Ref 0 TAB Candelario Gaines MD R1 Jun 20, 2016 18:45
== END 2016-05-09 18:03 | disposition home or self-care (01) | DRG 981 ==
LOC: NEPE 01:30 → NEDA 16:44 → N04A 18:53
PROVIDERS: ADMIT Family Medicine; ATTEND Family Medicine
PROC: 3E1M39Z Irrigation of Peritoneal Cavity using Dialysate, Percutaneous Approach (ICD-10-PCS; 2016-04-25)
PROC: 5A1D60Z (ICD-10-PCS; 2016-05-01)
PROC: 05HM33Z Insertion of Infusion Device into Right Internal Jugular Vein, Percutaneous Approach (ICD-10-PCS; 2016-05-01)
PROC: 0WPG33Z Removal of Infusion Device from Peritoneal Cavity, Percutaneous Approach (ICD-10-PCS; principal; 2016-05-03 13:06)
DX: T85.71XA Infection and inflammatory reaction due to peritoneal dialysis catheter, initial encounter (principal); K65.2 Spontaneous bacterial peritonitis; B20 Human immunodeficiency virus [HIV] disease; N18.6 End stage renal disease; A04.7 Enterocolitis due to Clostridium difficile; N25.81 Secondary hyperparathyroidism of renal origin; I12.0 Hypertensive chronic kidney disease with stage 5 chronic kidney disease or end stage renal disease; E87.70 Fluid overload, unspecified; R18.8 Other ascites; K21.9 Gastro-esophageal reflux disease without esophagitis; K59.00 Constipation, unspecified; B96.89 Other specified bacterial agents as the cause of diseases classified elsewhere; Z99.2 Dependence on renal dialysis; Z79.899 Other long term (current) drug therapy; Z86.73 Personal history of transient ischemic attack (TIA), and cerebral infarction without residual deficits
CPT/HCPCS: 36558; 71010; 71020; 74176; 76937; 77001; 80048; 80053; 80074; 82247; 83605; 83690; 83735; 83970; 84100; 84155; 85007; 85025; 85027; 85610; 85730; 87040; 87070; 87077; 87186; 87205; 87328; 87329; 87493; 89051; 90935; 94150; 94667; 94668; 96374; 96375; C1750; C1769; J0610; J0690; J0696; J0713; J0714; J1170; J1580; J1644; J2185; J2250; J2270; J3010; J3370; J7030; J7040; J7050; Q4081

== ENCOUNTER 2016-09-07 07:42 | Inpatient (IN) | payer MEDICARE, MEDICAID ==
[~2016-09-07] VITALS: Ht 160 cm; Wt 61.9 kg
[~2016-09-07 07:42] MED LIST changes: -1-ME1LIQ PO; -ASPI81TA82 PO; -ATOR10TA PO; +DOLU1TAB PO; -ELIP667T PO; -EPZITAB4 PO; +FAMO1TAB30 PO; +HYDR-3516 PO; +LABE100T2 PO; -LABE300T PO; +LEVA250T PO; +LIPI10TA PO; -LISI-363 PO; -METH750T2 PO; +METR-1 PO; +PHOS667C5 PO; +POLY17S PO; +POTA10PO PO; -PROT40TA PO; -RENACAP2 PO; +RENATAB5 PO; +RILP25 PO; +School Note; +TUMS1000 CHEW; -TUMS500C PO; -[UNRECOGNIZED DRUG - CODE] PO
[2016-09-07 07:45] VITALS: BP 166/85; PULSE 80; RESP 28; TEMP 98.3; O2SAT 95
[2016-09-07 08:13] VITALS: O2SAT 96
[2016-09-07] MEDS ORDERED: RESP: ALBUTEROL 2.5 MG/3 ML NEB (SCH) INH ONE (08:15)
[2016-09-07] MEDS ORDERED: SODIUM CHLORIDE 0.9% FLUSH 10 ML FLUSH IVF PRN (08:15)
--- NOTE | 2016-09-07 08:28 | PD ---
HPI Chief Complaint: Respiratory Symptoms Time Seen by Provider: 07:55 Travel History International Travel<30 days: No Contact w/Intl Traveler<30days: No Traveled to known affect area: No History of Present Illness HPI The patient's 41 years old and arrives due to shortness of breath. She has ESRD and is dialyzed through a right anterior chest wall to catheter. She follows with Dr. Rangel and she was dialyzed yesterday as she is every Friday. Evidently she was volume overloaded yesterday however dialysis was completed as normal. She went home however in the middle of last night she woke up with severe dyspnea. She has no chest pain. She has a chronic cough. She denies fever. PFSH Past Medical History Hx Anticoagulant Therapy: No Anemia: Yes Arthritis: No Asthma: Yes Autoimmune Disease: Yes (HIV) Blood Disorders: No Anxiety: No Depression: No Heart Rhythm Problems: No Cancer: No Cardiovascular Problems: Yes (HTN ) High Cholesterol: No Chemotherapy: No Chest Pain: No Congestive Heart Failure: No COPD: No Cerebrovascular Accident: Yes Diabetes: No Dialysis: Yes Diminished Hearing: No Endocrine: No Gastrointestinal Disorders: Yes (HX GI BLEED; ACID REFLUX) GERD: No Glaucoma: No Genitourinary: Yes (KIDNEY FAILURE) Headaches: No Hepatitis: No Hiatal Hernia: Yes Hypertension: Yes Immune Disorder: No Kidney Stones: No Medical other: Yes (HIV+) Musculoskeletal: Yes (JOINTS ACHE - ESPECIALLY LOWER EXTREMITIES ) Neurologic: Yes (STROKE 2010 NO RESIDUAL EFFECTS) Psychiatric: No Reproductive: No Respiratory: No Immunizations Current: Yes Migraines: No Myocardial Infarction: No Radiation Therapy: No Renal Failure: Yes Seizures: No Sickle Cell Disease: No Sleep Apnea: No Thyroid Disease: Yes (PARATHYROID) Ulcer: No Tetanus Vaccination: < 5 Years ?: Not LMP: 08/31/16 : 1 Para: 1 Past Surgical History Abdominal Surgery: No AICD: No Appendectomy: No Body Medical Devices: TENCKHOFF TUBE FOR PERITONEAL DIALYSIS Cardiac Surgery: No Section: Yes Cholecystectomy: No Ear Surgery: No Endocrine Surgery: No Eye Surgery: Yes (CATARACTS OSCAR FROM BOTH EYES IN 1999) Genitourinary Surgery: Yes (TENKOFF CATHETER IN 2004 FOR PERITONEAL DIAYLSIS) Gynecologic Surgery: No Hysterectomy: Yes Joint Replacement: No Neurologic Surgery: No Oral Surgery: No Pacemaker: No Thoracic Surgery: No Other Surgery: Yes Social History Alcohol Use: No Tobacco Use: No Substance Use: No Allergies-Medications (Allergen,Severity, Reaction): Coded Allergies: Iron Dextran (Verified Allergy, Severe, IRON INJECTIONS, 09/07/16) PT STATES THEY HAVE NOW CHANGED BRANDS OF IRON & SHE IS ABLE TO TAKE THE NEW BRAND OF IRON *MDRO Multi-Drug Resistant Organism (Verified Adverse Reaction, Unknown, ) [facility] - E. cloacae (peritoneal fluid) - 05/04/16 Reported Meds & Prescriptions Reported Meds & Active Scripts Active Labetalol (Labetalol HCl) 100 Mg Tab 150 Mg PO BID Famotidine 10 Mg Tab 10 Mg PO DAILY Hydrocodone-Acetaminophen 5-325 mg Tab 1 Tab PO Q4H PRN [School Note] Reported Lipitor (Atorvastatin Calcium) 10 Mg Tab 10 Mg PO HS Tivicay (Dolutegravir Sodium) 50 Mg Tab 50 Mg PO DAILY Epivir (Lamivudine) 150 Mg Tab 150 Mg PO BID Edurant (Rilpivirine) 25 Mg Tab 25 Mg PO DAILY Tums Ultra 1000 (Calcium Carbonate (Antacid)) 1,000 Mg Chew 4,000 Mg CHEW DAILY Cynthia-Yaquelin (B-Complex W/ C & Folic Acid) 1 Tab 1 Tab PO DAILY Review of Systems Except as stated in HPI: all other systems reviewed are Neg Physical Exam Narrative GENERAL: 41 yo F, WNWD, mild to moderate distress 2/2 dyspnea SKIN: Warm and dry. HEAD: Atraumatic. Normocephalic. EYES: Pupils equal and round. No scleral icterus. No injection or drainage. ENT: No nasal bleeding or discharge. Mucous membranes pink and moist. NECK: Trachea midline. No JVD. CARDIOVASCULAR: Regular rate and rhythm. RESPIRATORY: Tachypnea. Increased breath sounds at the bases. GASTROINTESTINAL: Abdomen soft, non-tender, nondistended. Hepatic and splenic margins not palpable. MUSCULOSKELETAL: Extremities without clubbing, cyanosis, or edema. No obvious deformities. NEUROLOGICAL: Awake and alert. No obvious cranial nerve deficits. Motor grossly within normal limits. Five out of 5 muscle strength in the arms and legs. Normal speech. PSYCHIATRIC: Appropriate mood and affect; insight and judgment normal. Data Data Last Documented VS Vital Signs Date Time Temp Pulse Resp B/P Pulse Ox O2 Delivery O2 Flow Rate FiO2 09/07/16 09:04 23 93 Nasal Cannula 2 09/07/16 07:45 98.3 80 166/85 Vital signs reviewed Orders Complete Blood Count With Diff (09/07/16 08:06) Basic Metabolic Panel (Bmp) (09/07/16 08:06) Magnesium (Mg) (09/07/16 08:06) Iv Access Insert/Monitor (09/07/16 08:06) Electrocardiogram (09/07/16 08:06) Ecg Monitoring (09/07/16 08:06) Oximetry (09/07/16 08:06) Oxygen Administration (09/07/16 08:06) Chest, Single Ap (09/07/16 08:06) Sodium Chloride 0.9% Flush (Ns Flush) (09/07/16 08:15) Albuterol Neb (Albuterol Neb) (09/07/16 08:15) Phosphorus (Po4) (09/07/16 08:17) Blood Culture (09/07/16 08:59) Ceftriaxone Inj (Rocephin Inj) (09/07/16 09:00) Azithromycin Inj (Zithromax Inj) (09/07/16 09:00) Albuterol-Ipratropium Neb (Duoneb Neb) (09/07/16 09:00) Calcium Gluconate Inj (Calcium Gluconate (09/07/16 09:15) Insulin Human Regular Inj (Novolin R Inj (09/07/16 09:30) Dextrose 50% In Timothy (Vial) Inj (D50w (Vi (09/07/16 09:15) Sodium Bicarbonate 8.4% Inj (Sodium Bica (09/07/16 09:15) Sodium Polysty Sulfate Liq (Kayexalate L (09/07/16 09:15) Dextrose 50% In Timothy (Syr) Inj (D50w (Syr (09/07/16 10:00) Labs Laboratory Tests Test 09/07/16 08:17 White Blood Count 7.7 TH/MM3 Red Blood Count 3.22 MIL/MM3 Hemoglobin 10.8 GM/DL Hematocrit 32.7 % Mean Corpuscular Volume 101.8 FL Mean Corpuscular Hemoglobin 33.4 PG Mean Corpuscular Hemoglobin 32.9 % Concent Red Cell Distribution Width 16.9 % Platelet Count 175 TH/MM3 Mean Platelet Volume 9.4 FL Neutrophils (%) (Auto) 59.8 % Lymphocytes (%) (Auto) 21.6 % Monocytes (%) (Auto) 8.4 % Eosinophils (%) (Auto) 9.4 % Basophils (%) (Auto) 0.8 % Neutrophils # (Auto) 4.6 TH/MM3 Lymphocytes # (Auto) 1.7 TH/MM3 Monocytes # (Auto) 0.7 TH/MM3 Eosinophils # (Auto) 0.7 TH/MM3 Basophils # (Auto) 0.1 TH/MM3 CBC Comment DIFF FINAL Differential Comment Sodium Level 137 MEQ/L Potassium Level 6.8 MEQ/L Chloride Level 104 MEQ/L Carbon Dioxide Level 25.2 MEQ/L Anion Gap 8 MEQ/L Blood Urea Nitrogen 59 MG/DL Creatinine 7.49 MG/DL Estimat Glomerular Filtration 7 ML/MIN Rate Random Glucose 76 MG/DL Calcium Level 7.9 MG/DL Phosphorus Level 5.6 MG/DL Magnesium Level 2.0 MG/DL MDM Medical Decision Making Medical Screen Exam Complete: Yes Emergency Medical Condition: Yes Differential Diagnosis Electrolyte imbalance, volume overload, infection, arrhythmia Narrative Course EKG reveals sinus rhythm with T wave morphology concerning for hyperkalemia, rate 78 CBC & BMP Diagram 09/07/16 08:17 Last 24 hours Impressions Chest X-Ray 09/07/16 0806 Signed Impressions: Service Date/Time: Wednesday, September 07, 2016 08:24 - CONCLUSION: Patchy basilar airspace disease. Mu Dan MD Patient has pneumonia. Rocephin and blood cultures started. She also has a potassium of 6.8 with slight hemolysis. Calcium insulin dextrose and bicarbonate albuterol given. Patient also received Kayexalate. Her rhythm has remained stable. There is no gross volume overload on plain film of the chest. She'll be admitted for continuous monitoring and treatment of hyperkalemia. Case discussed with Dr. Pryor for FMR. Case d/w Dr Link Michelle for nephrology who will arrange for HD today. [facility] admission for now considered most appropriate. Critical Care Narrative Aggregate critical care time was 35 minutes. Time to perform other separately billable procedures was not included in the critical care time. My time did not include minutes spent treating any other patients simultaneously or on activities that did not directly contribute to the patient's treatment. The services I provided to this patient were to treat and/or prevent clinically significant deterioration that could result in: Arrhythmia, cardiac pulmonary arrest, hypoxia I provided critical care services requiring my management, as noted below: Chart data review, documentation time, medication orders and management, vital sign assessments/reviewing monitor data, ordering and reviewing lab tests, ordering and interpreting/reviewing x-rays and diagnostic studies, care of the patient and discussion of the patient with the admitting physicians. Diagnosis Primary Impression: Pneumonia Qualified Code: J18.1 - Pneumonia of right lower lobe due to infectious organism Additional Impressions: Hyperkalemia Shortness of breath Renal failure Qualified Code: N18.6 - Stage 5 chronic kidney disease on chronic dialysis Admitting Information Admitting Physician Requests: Observation Sukumar Laughlin MD Sep 07, 2016 08:28
[2016-09-07 08:39] LABS: AUTOMATED NEUTROPHIL # 4.6 TH/MM3 (1.8-7.7); BASOPHIL # 0.1 TH/MM3 (0-0.2); BASOPHIL % 0.8 % (0.0-2.0); EOSINOPHIL # 0.7 TH/MM3 (0-0.4); EOSINOPHIL % 9.4 % (0.0-4.0); HEMATOCRIT 32.7 % (35.0-46.0); HEMO FLAGS DIFF FINAL; LYMPH % 21.6 % (9.0-44.0); LYMPHOCYTE # 1.7 TH/MM3 (1.0-4.8); MEAN CELL VOLUME 101.8 FL (80.0-100.0); MEAN CORPUSCULAR HEMOGLOBIN 33.4 PG (27.0-34.0); MEAN CORPUSCULAR HGB CONC 32.9 % (32.0-36.0); MONO % 8.4 % (0.0-8.0); NEUT % 59.8 % (16.0-70.0); PLATELET COUNT 175 TH/MM3 (150-450); RED BLOOD COUNT 3.22 MIL/MM3 (4.00-5.30); RED CELL DISTRIBUTION WIDTH 16.9 % (11.6-17.2); WHITE BLOOD COUNT 7.7 TH/MM3 (4.0-11.0)
--- NOTE | 2016-09-07 08:39 | RADRPT ---
EXAM DATE/TIME: 09/07/2016 08:24 [facility] COMPARISON: CHEST SINGLE AP, April 28, 2016, 8:13. INDICATIONS : Shortness of breath. MEDICAL HISTORY : Renal failure, chronic. Gastroesophageal reflux disease. Hypertension SURGICAL HISTORY : Hysterectomy. Vas-cath. ENCOUNTER: Initial ACUITY: 1 day PAIN SCORE: 0/10 LOCATION: Bilateral chest FINDINGS: A vas catheter is noted from a right sided approach with distal tip overlying expected location of th e right atrium. There is patchy basilar airspace disease. Cardiac silhouette mildly enlarged. Osseous structures are intact. CONCLUSION: Patchy basilar airspace disease. Mu Dan MD on September 07, 2016 at 8:35 Board Certified Radiologist. This report was verified electronically.
[2016-09-07] MEDS ORDERED: RESP: ALBUTEROL 2.5 MG/IPRATROPIUM 0.5 MG NEB (SCH) INH ONE (09:00)
[2016-09-07] MEDS ORDERED: AZITHROMYCIN INJ 500 MG in SODIUM CHLOR 0.9% 250 ML INJ 250 ML IV ONE (09:00)
[2016-09-07] MEDS ORDERED: cefTRIAXone INJ 1,000 MG in SODIUM CHLORIDE 0.9% INJ 100 ML IV ONE (09:00)
[2016-09-07 09:03] LABS: BICARBONATE 25.2 MEQ/L (21.0-32.0)
[2016-09-07 09:04] VITALS: RESP 23; O2SAT 93
[2016-09-07 09:13] LABS: POTASSIUM 6.8 MEQ/L (3.5-5.1)
[2016-09-07] MEDS ORDERED: DEXTROSE 50% IN WATER 50 ML VIAL(D50) IV PUSH ONE (09:15)
[2016-09-07] MEDS ORDERED: CALCIUM GLUCONATE 10% 1 GM/10 ML VIAL SLOW IVP ONE (09:15)
[2016-09-07] MEDS ORDERED: SODIUM POLYSTYRENE SULFONATE SUSP 15 GM/60 ML CUP PO ONE (09:15)
[2016-09-07] MEDS ORDERED: SODIUM BICARBONATE 8.4% SOLN 50 MEQ/50 ML VIAL SLOW IVP ONE (09:15)
[2016-09-07] MEDS ORDERED: INSULIN HUMAN REGULAR 1,000 UNITS/10 ML VIAL IV PUSH ONE (09:30)
[2016-09-07] MEDS ORDERED: SODIUM CHLOR 0.9% 1000 ML INJ 1,000 ML IV PRN ×3 (09:55)
[2016-09-07] MEDS ORDERED: GENTAMICIN SULFATE (DIALYSIS USE ONLY) 20 MG/2 ML VIAL IV PRN (10:00)
[2016-09-07] MEDS ORDERED: MANNITOL 12.5 GM/50 ML VIAL IV PRN (10:00)
[2016-09-07] MEDS ORDERED: HEPARIN SODIUM - IV 10,000 UNITS/10 ML VIAL PRN (10:00)
[2016-09-07] MEDS ORDERED: ONDANSETRON HCL 4 MG/2 ML VIAL IV PRN (10:00)
[2016-09-07] MEDS ORDERED: DEXTROSE 50% IN WATER 50 ML SYRINGE IV PUSH ONE (10:00)
[2016-09-07] MEDS ORDERED: HEPARIN SODIUM - IV 10,000 UNITS/10 ML VIAL IVF PRN (10:00)
[2016-09-07] MEDS ORDERED: SODIUM CHLORIDE 0.9% FLUSH 10 ML FLUSH IV FLUSH PRN ×2 (10:00→10:15)
[2016-09-07] MEDS ORDERED: ALBUMIN HUMAN 25% 25 GM/100 ML BAGP IV PRN (10:00)
[2016-09-07] MEDS ORDERED: NITROGLYCERIN 0.4 MG SL 25 TABS/BTL SL PRN (10:00)
[2016-09-07] MEDS ORDERED: GELATIN 12 MM/7 MM FOAM TOP PRN (10:00)
[2016-09-07] MEDS ORDERED: diphenhydrAMINE HCL 25 MG CAP PO PRN (10:00)
--- NOTE | 2016-09-07 10:13 | HHI.HP ---
[facility] Service Family Medicine Primary Care Physician Jarod Tian MD Admission Diagnosis Dyspnea, ESRD, HyperK, Bibasilar Densities Diagnoses: Chief Complaint: Shortness of Breath International Travel<30 Days: No Contact w/Intl Traveler<30days: No Known Affected Area: No History of Present Illness 41 y/o F w/PMH of HIV, ESRD, and HTN who presents with shortness of breath that suddenly started last night after dialysis. She has a right anterior chest wall catheter in place, receives dialysis MWF. She follows with Dr. Rangel. She states that she felt volume overloaded yesterday after dialysis, weighing herself and noticing that she was 56 kg (from 58 kg) after dialysis when she usually is down to 51 kg. Has a dry cough that began 3 days ago. Denies chest pain, sore throat, N/V, diarrhea, palpitations, abdominal pain, dizziness, or fever. Has had contact with her children who have had colds in the last week and live at home. Patient states that she drank alot of fluids yesterday, over the 32 oz threshold required for her to remain below for her ESRD. Last viral load was undetectable. (Chiquis Griffin MD R1) Review of Systems Constitutional: COMPLAINS OF: Weight gain, Change in appetite, DENIES: Fever Endocrine: DENIES: Heat/cold intolerance, Polydipsia, Polyuria, Polyphagia Eyes: DENIES: Blurred vision, Eye pain, Vision loss Ears, nose, mouth, throat: DENIES: Hearing loss, Vertigo, Nasal discharge, Oral lesions, Throat pain, Epistaxis, Sinus Pain Respiratory: DENIES: Cough, Sputum production Cardiovascular: DENIES: Chest pain, Palpitations, Syncope, Dyspnea on Exertion Gastrointestinal: DENIES: Abdominal pain, Diarrhea, Nausea, Vomiting Musculoskeletal: DENIES: Joint pain, Muscle aches, Stiffness Integumentary: DENIES: Abnormal pigmentation, Pruritus, Rash Hematologic/lymphatic: DENIES: Bruising, Lymphadenopathy Neurologic: DENIES: Headache, Paresthesias, Seizures Psychiatric: DENIES: Anxiety, Confusion, Mood changes, Depression (Chiquis Griffin MD R1) Past Family Social History Past Medical History ESRD HIV stable HTN Past Surgical History 08/2016 AV fistula placed 07/2016 removal of PD catheter due to infection 05/2016 placement of right anterior chest catheter (Chiquis Griffin MD R1) Allergies: Coded Allergies: Iron Dextran (Verified Allergy, Severe, IRON INJECTIONS, 09/07/16) PT STATES THEY HAVE NOW CHANGED BRANDS OF IRON & SHE IS ABLE TO TAKE THE NEW BRAND OF IRON *MDRO Multi-Drug Resistant Organism (Verified Adverse Reaction, Unknown, ) [facility] - E. cloacae (peritoneal fluid) - 05/04/16 Family History Dad: HTN Mom: glaucoma Social History Does not smoke or drink. Last used marijuana 6 months ago. (Chiquis Griffin MD R1 ) Physical Exam Vital Signs Vital Signs Date Time Temp Pulse Resp B/P Pulse Ox O2 Delivery O2 Flow Rate FiO2 09/07/16 09:04 23 93 Nasal Cannula 2 09/07/16 09:04 93 Nasal Cannula 2 09/07/16 08:13 96 Room Air 09/07/16 08:13 96 Room Air 09/07/16 07:45 98.3 80 28 166/85 95 Room Air Physical Exam GENERAL: This is a well-nourished, well-developed patient, in no apparent distress. SKIN: No rashes, ecchymoses or lesions. Cool and dry. HEAD: Atraumatic. Normocephalic. EYES: Pupils equal round and reactive. Extraocular motions intact. No scleral icterus. Clear eye drainage visible. ENT: Nose without bleeding, purulent drainage. Throat without erythema, tonsillar hypertrophy or exudate. Uvula midline. Airway patent. NECK: Trachea midline. No JVD or lymphadenopathy. Supple, nontender, no meningeal signs. CARDIOVASCULAR: Regular rate and rhythm without murmurs, gallops, or rubs. RESPIRATORY: Coarse lung sounds bilaterally. Breath sounds equal bilaterally. GASTROINTESTINAL: Abdomen soft, non-tender, distension noted in the upper quadrants. No hepato-splenomegaly, or palpable masses. No guarding. MUSCULOSKELETAL: Extremities without clubbing, cyanosis, or edema. No joint tenderness, effusion, or edema noted. No calf tenderness. NEUROLOGICAL: Awake and alert. Normal speech. Laboratory Laboratory Tests Test 09/07/16 08:17 White Blood Count 7.7 Red Blood Count 3.22 Hemoglobin 10.8 Hematocrit 32.7 Mean Corpuscular Volume 101.8 Mean Corpuscular Hemoglobin 33.4 Mean Corpuscular Hemoglobin 32.9 Concent Red Cell Distribution Width 16.9 Platelet Count 175 Mean Platelet Volume 9.4 Neutrophils (%) (Auto) 59.8 Lymphocytes (%) (Auto) 21.6 Monocytes (%) (Auto) 8.4 Eosinophils (%) (Auto) 9.4 Basophils (%) (Auto) 0.8 Neutrophils # (Auto) 4.6 Lymphocytes # (Auto) 1.7 Monocytes # (Auto) 0.7 Eosinophils # (Auto) 0.7 Basophils # (Auto) 0.1 CBC Comment DIFF FINAL Differential Comment Sodium Level 137 Potassium Level 6.8 Chloride Level 104 Carbon Dioxide Level 25.2 Anion Gap 8 Blood Urea Nitrogen 59 Creatinine 7.49 Estimat Glomerular Filtration 7 Rate Random Glucose 76 Calcium Level 7.9 Phosphorus Level 5.6 Magnesium Level 2.0 (Chiquis Griffin MD R1) Result Diagram: 09/07/1681609/07/16816 Imaging Last Impressions Chest X-Ray 09/07/16805 Signed Impressions: Service Date/Time: Wednesday, September 07, 2016 08:24 - CONCLUSION: Patchy basilar airspace disease. Mu Dan MD (Chiquis Griffin MD R1) Assessment and Plan Assessment and Plan 41 y/o F w/HTN, HIV, and ESRD admitted for dyspnea. //Dyspnea - Diff: likely fluid overload in the context of patient non-compliant with fluid restriction - RR>20, Sattting well. CXR shows patchy basilar airspace. Concerning for pneumonia, will repeat tomorrow. - Received Rocephin in the ED, will avoid Abx for now due to recent hx of C.diff - Consulted Nephro. Patient to receive dialysis today - Will order blood CXR - Duonebs PRN - Will monitor for improvement after dialysis //Hyperkalemia - 6.8 on admission, some hemolysis noted - Received duonebs in the ED - Repeat K+ 5.8 - Plan to correct with dialysis - Repeat BMP in the morning //Macrocytic Anemia in the setting of ESRD - Hgb 10.8 (baseline 10-11) - Will monitor //HTN - 166/85 in the ED, did not take meds this morning - Labetalol 150 mg PO BID - Will resume home meds after dialysis //HIV - more than 10 yr hx, last viral load undetectable - follows with infectious disease - will continue HIV meds and daily CBC //FEN: Renal diet w/1L fluid restriction //Code status: FULL //Dispo: Overnight for monitoring, d/c likely tomorrow Chiquis Griffin MD R1 Code Status FULL (Chiquis Griffin MD R1) Attending Attestation Patient seen and examined. Case reviewed and discussed with the resident team. Agree with plan of care as discussed with me and documented in the resident note. participated in her history and physical exam with the admitting residents ( Vero Paulson MD) Problem List: (1) HIV (human immunodeficiency virus infection) Status: Chronic (Chiquis Griffin MD R1) Physician Certification 2 Midnight Certification Type: Admission for Inpatient Services Order for Inpatient Services The services are ordered in accordance with Medicare regulations or non- Medicare payer requirements, as applicable. In the case of services not specified as inpatient-only, they are appropriately provided as inpatient services in accordance with the 2-midnight benchmark. Estimated LOS (days): 2 2 days is the estimated time the patient will need to remain in the hospital, assuming treatment plan goals are met and no additional complications. Post-Hospital Plan: Home (Chiquis Griffin MD R1) Chiquis Griffin MD R1 Sep 07, 2016 10:13 Vero Paulson MD Sep 08, 2016 14:54
[2016-09-07] MEDS ORDERED: SENNOSIDES 8.6 MG TAB PO PRN (10:15)
[2016-09-07] MEDS ORDERED: MAGNESIUM HYDROXIDE SUSP 30 ML CUP PO PRN (10:15)
[2016-09-07] MEDS ORDERED: LACTULOSE SYRUP 20 GM/30 ML CUP PO PRN (10:15)
[2016-09-07] MEDS ORDERED: ACETAMINOPHEN 325 MG TAB PO PRN (10:15)
[2016-09-07] MEDS ORDERED: NALOXONE HCL 0.4 MG/ML AMP IV PRN (10:15)
[2016-09-07] MEDS ORDERED: BISACODYL 10 MG SUPP RECTAL PRN (10:15)
[2016-09-07] MEDS ORDERED: ACETAMINOPHEN/HYDROcodone 325 MG/5 MG TAB PO PRN (10:15)
[2016-09-07] MEDS ORDERED: ONDANSETRON HCL 4 MG/2 ML VIAL IVP PRN (10:15)
[2016-09-07] MEDS ORDERED: RESP: ALBUTEROL 2.5 MG/3 ML NEB (PRN) NEB (10:45)
[2016-09-07] MEDS ORDERED: RESP: ALBUTEROL 2.5 MG/IPRATROPIUM 0.5 MG NEB (PRN) NEB (10:45)
[2016-09-07] MEDS ORDERED: PILL SPLITTER OTHER PRN (10:45)
[2016-09-07] MEDS: HEPARIN SODIUM - SQ 10,000 UNITS/ML VIAL SQ SCH ×2 (11:15→20:26)
[2016-09-07 11:21] LABS: BICARBONATE 27.5 MEQ/L (21.0-32.0); POTASSIUM 5.8 MEQ/L (3.5-5.1)
--- NOTE | 2016-09-07 11:50 | EKG ---
Date Performed: 09/07/2016 Time Performed: 08:15:42 PTAGE: 41 years EKG: Sinus rhythm PROLONGED QT INTERVAL ABNORMAL ECG No significant change from prior electrocardiogram. PREVIOUS TRACING : 06/23/2013 08.18 DOCTOR: Asaf Marcum Interpretating Date/Time 09/07/2016 11:49:04
[2016-09-07 11:55] VITALS: BP 150/64; PULSE 78; RESP 30; TEMP 98.3; O2SAT 97
[2016-09-07] MEDS ORDERED: cloNIDine HCL 0.1 MG TAB PO PRN (12:30)
[2016-09-07] MEDS ORDERED: hydrALAZINE HCL 10 MG TAB PO PRN (12:30)
[2016-09-07] MEDS: cloNIDine HCL 0.1 MG TAB PO PRN ×2 (14:37→18:05)
--- NOTE | 2016-09-07 14:44 | MB ---
cc: SUKUMAR MICHELLE MD DATE OF CONSULTATION: 09/07/2016 DICTATING PHYSICIAN: Sukumar Michelle MD. REASON FOR CONSULTATION His end-stage renal disease management. HISTORY OF PRESENT ILLNESS This is a 41-year-old female with a history of HIV as well as ESRD on hemodialysis Friday, Friday and Friday. The patient is followed up as an outpatient with Dr. Tian. The patient presented with shortness of breath which started after her dialysis treatment on Friday. The patient apparently was noncompliant with fluid intake and she reports drinking a lot of water. Her dry weight is apparently 51 kg and she went to dialysis with a weight of 58 kg. Apparently there were only able to take 2-3 liters of fluid off at dialysis and the patient had ongoing dyspnea and shortness of breath. She came here for further evaluation. Her respiratory status is stable on room air at this point. However, the patient was found to have a potassium level of 6.8. Nephrology was consulted and dialysis was initiated. At this point the patient is being observed while on dialysis. She is tolerating dialysis well via a right IJ tunnel catheter. She reports that she was feeling hot and was admittedly noncompliant with her fluid intake and diet intake and this likely contributed to her volume overload symptoms. She reports she is feeling better at this time and dialysis being performed without any issues at this time. The patient denies any fevers or chills. However, she did feel somewhat warm yesterday. The patient was admitted with a primary team. A chest x-ray reveals possible bibasilar opacities, she has received Rocephin in the ER x1, given a recent history of C diff further antibiotic treatment has been avoided. REVIEW OF SYSTEMS The patient denies any fevers or chills. Did feel somewhat warm the other day. No cough, no sputum. No nausea, no vomiting, no diarrhea. No chest pains. No dizziness or loss of consciousness otherwise review of systems negative. PAST MEDICAL HISTORY: Past medical history includes ESRD on hemodialysis Friday, Friday, Friday followed up with Dr. Armstrong. Also history of HIV and hypertension. PAST SURGICAL HISTORY Includes left upper arm AV fistula first. First stage Basilic vein fistula treated with Dr. Barrios August 08. Plan is for second stage surgery later in October. Previous PD catheter removed for infection. The patient has a right anterior chest catheter for dialysis access. ALLERGIES Include Iron Dextran, however is able to tolerate other forms of iron. FAMILY HISTORY: Father with hypertension. Mother with glaucoma. SOCIAL HISTORY No alcohol, tobacco use. The patient used marijuana 6 months ago. PHYSICAL EXAMINATION VITAL SIGNS: At time of evaluation temperature 98.3, pulse 78, respiratory 30, blood pressure 150/64, pulse ox 97%. IN GENERAL: Awake, alert, oriented, no apparent distress. HEAD, EYES, EARS, NOSE, AND THROAT/NECK: Neck soft supple. No lymphadenopathy. CARDIOVASCULAR SYSTEM: Regular rate and rhythm. No murmurs, rubs, gallops. PULMONARY: Lungs clear auscultation bilaterally. ABDOMEN: The abdomen is soft, nontender, nondistended. EXTREMITIES: No edema. LABORATORY FINDINGS White count 7.7, hemoglobin 10.8, hematocrit 32.7 with platelet count of 175, sodium 140, potassium 5.8, chloride 103, bicarb 27, BUN 61, creatinine 7.69 with glucose of 83. BMP was 2325. ASSESSMENT/PLAN 1. ESRD. The patient had a is on dialysis Friday, Friday and Friday and is followed up as an outpatient with Dr. Tian. Apparently she had presented to dialysis yesterday with 7 kg over her dry weight and had been noncompliant with fluid restriction, apparently they were only able to take off two to three liters of fluid. The patient had ongoing dyspnea and shortness of breath subsequently. The patient was advised to maintain strict compliance with fluid as well as potassium intake. She admittedly has been taking any more fluids as she was feeling hot yesterday. At this point she is on dialysis and is tolerating well via her right IJ tunneled catheter. The goals for over 5 liters of fluid removal today with dialysis. She also presented with hyperkalemia with potassium 6.8, this should improve after dialysis. Continue monitor electrolytes in the morning. Should her electrolytes and volume status be stable tomorrow as she may be considered for discharge and continue with her regular outpatient dialysis on Friday. I suspect this is all secondary to noncompliance with fluid and diet restriction. The patient was counseled on the maintaining a strict renal diet. 3. Hyperkalemia. The patient had potassium of 6.8 on presentation, which was slightly hemolyzed. A repeat potassium was 5.8. She is on a one K bath for the first hour and then a two K bath here with dialysis. This should improve potassium and she can conitinue with further dialysis on Friday if she is inpatient. Otherwise she can get outpatient dialysis on Friday. The patient was advised to maintain strict dietary compliance and potassium intake. 4. Questionable pneumonia, questionable infiltrate seen on x-ray. The patient is afebrile at this point. Was given one dose of Rocephin in the ER, however, further antibiotics were held. To continue to monitor her symptoms in the morning. Appears stable without any signs of infection at this stage. Continue to monitor. 5. Anemia, the patients hemoglobin is stable at 10.8, continue to monitor, and treat with dialysis. 6. Hypertension, blood pressure is stable at this point. Continue to monitor. 7. HIV apparently nondetectable levels in the past. Continue with antiretrovirals. MD ROMULO Lemus/helene /2:20 PM /2:31 PM PB
[2016-09-07] MEDS: ACETAMINOPHEN 325 MG TAB PO PRN ×2 (17:55→21:30)
[2016-09-07 20:00] VITALS: BP 165/75; PULSE 78; RESP 23; TEMP 100.4; O2SAT 94
[2016-09-07] MEDS: DOCUSATE SODIUM 50 MG/SENNA 8.6 MG TAB PO SCH (20:27)
[2016-09-07] MEDS: LABETALOL HCL 100 MG TAB PO SCH (20:27)
[2016-09-07] MEDS: SODIUM CHLORIDE 0.9% FLUSH 10 ML FLUSH IV FLUSH SCH (20:27)
[2016-09-07] MEDS ORDERED: ATORVASTATIN 10 MG TAB PO SCH (21:00)
[2016-09-07] MEDS ORDERED: DOLUTEGRAVIR SODIUM 50 MG TAB PO SCH (21:00)
[2016-09-07] MEDS ORDERED: ZOLPIDEM TARTRATE 5 MG TAB PO PRN (21:00)
[2016-09-07] MEDS ORDERED: RILPIVIRINE 25 MG TAB PO SCH (21:00)
[2016-09-08] VITALS (7 sets, daily range): BP systolic 145–169; BP diastolic 64–85; PULSE 70–74; RESP 21–25; TEMP 99–99.5; O2SAT 98–100
[2016-09-08] MEDS: HEPARIN SODIUM - SQ 10,000 UNITS/ML VIAL SQ SCH ×2 (03:09→10:39)
--- NOTE | 2016-09-08 05:39 | RADRPT ---
EXAM DATE/TIME: 09/08/2016 04:24 [facility] COMPARISON: CHEST SINGLE AP, September 07, 2016, 8:24. INDICATIONS : Shortness of breath MEDICAL HISTORY : Renal failure, chronic. Gastroesophageal reflux disease. Hypertension SURGICAL HISTORY : Hysterectomy. Vas-cath. ENCOUNTER: Subsequent ACUITY: 2 days PAIN SCORE: 7/10 LOCATION: Bilateral chest FINDINGS: A single view of the chest demonstrates interval opacification behind the heart could be developing i nfiltrate. Better aeration the right lung base The cardiomediastinal contours are unremarkable. Osse ous structures are intact. Multilumen central catheter in stable position CONCLUSION: Questionable developing infiltrate in the left lower lobe with now opacification left hemidiaphragm a nd some increased density behind the heart Luisito Myers MD on September 08, 2016 at 5:37 Board Certified Radiologist. This report was verified electronically.
[2016-09-08 05:58] LABS: AUTOMATED NEUTROPHIL # 2.5 TH/MM3 (1.8-7.7); BASOPHIL % 0.8 % (0.0-2.0); EOSINOPHIL # 0.7 TH/MM3 (0-0.4); HEMO FLAGS DIFF FINAL; LYMPHOCYTE # 1.9 TH/MM3 (1.0-4.8); MEAN CELL VOLUME 100.7 FL (80.0-100.0); MEAN CORPUSCULAR HEMOGLOBIN 34.1 PG (27.0-34.0); MEAN CORPUSCULAR HGB CONC 33.9 % (32.0-36.0); MONO % 10.7 % (0.0-8.0); NEUT % 43.5 % (16.0-70.0); PLATELET COUNT 153 TH/MM3 (150-450); RED BLOOD COUNT 2.88 MIL/MM3 (4.00-5.30); RED CELL DISTRIBUTION WIDTH 16.7 % (11.6-17.2); WHITE BLOOD COUNT 5.8 TH/MM3 (4.0-11.0)
[2016-09-08 06:28] LABS: BICARBONATE 26.9 MEQ/L (21.0-32.0); POTASSIUM 4.5 MEQ/L (3.5-5.1)
[2016-09-08] MEDS: LABETALOL HCL 100 MG TAB PO SCH (07:58)
[2016-09-08] MEDS: DOCUSATE SODIUM 50 MG/SENNA 8.6 MG TAB PO SCH (07:58)
[2016-09-08] MEDS: SODIUM CHLORIDE 0.9% FLUSH 10 ML FLUSH IV FLUSH SCH (08:06)
--- NOTE | 2016-09-08 08:07 | HHI.DCPOC ---
Discharge Care Plan Diagnosis: (1) HIV (human immunodeficiency virus infection) (2) HTN (hypertension) (3) Shortness of breath Goals to Promote Your Health * To prevent worsening of your condition and complications * To maintain your health at the optimal level Directions to Meet Your Goals Take your medications as prescribed Follow your dietary instruction Follow activity as directed Keep your appointments as scheduled Take your immunizations and boosters as scheduled If your symptoms worsen call your PCP, if no PCP go to Urgent Care Center or Emergency Room Smoking is Dangerous to Your Health. Avoid second hand smoke Call the 24-hour hour crisis hotline for domestic abuse at Ariela Regan MD R2 Sep 08, 2016 08:07
[2016-09-08] MEDS ORDERED: FAMOTIDINE 20 MG TAB PO SCH (09:00)
[2016-09-08] MEDS ORDERED: MULTIVITAMIN HEMATINIC THERAPEUTIC TAB PO SCH (09:00)
[2016-09-08] MEDS: cloNIDine HCL 0.1 MG TAB PO PRN (09:05)
[2016-09-08] MEDS ORDERED: amLODIPine BESYLATE 5 MG TAB PO SCH (09:15)
[2016-09-08] MEDS ORDERED: amLODIPine BESYLATE 5 MG TAB PO ONE (09:30)
[2016-09-08] MEDS ORDERED: LISINOPRIL 20 MG TAB PO SCH (09:30)
[2016-09-08] MEDS: ACETAMINOPHEN 325 MG TAB PO PRN (09:41)
[2016-09-08] MEDS ORDERED: LABETALOL HCL 100 MG TAB PO ONE (09:45)
[2016-09-08] MEDS ORDERED: PILL SPLITTER OTHER PRN (10:15)
--- NOTE | 2016-09-08 10:18 | RADRPT ---
EXAM DATE/TIME: 09/08/2016 10:06 [facility] COMPARISON: No previous studies available for comparison. INDICATIONS : Shortness of breath. MEDICAL HISTORY : Renal failure, chronic. Gastroesophageal reflux disease. Hypertension. SURGICAL HISTORY : Vas-cath ENCOUNTER: Subsequent ACUITY: 2 days PAIN SCORE: 0/10 LOCATION: Bilateral chest FINDINGS: PA and lateral views of the chest demonstrate the lungs to be symmetrically aerated without evidence of mass, infiltrate or effusion. The cardiomediastinal contours are unremarkable. Osseous structure s are intact. Dialysis catheter right subclavian approach. The tips overlie the expected location of the right atri um. CONCLUSION: No acute disease. Mu Dan MD on September 08, 2016 at 10:14 Board Certified Radiologist. This report was verified electronically.
[2016-09-08] MEDS ORDERED: LISI-515 PO (10:50)
[2016-09-08] MEDS ORDERED: LABE300T PO (10:50)
[2016-09-08] MEDS ORDERED: AMLO10TA2 PO (10:50)
--- NOTE | 2016-09-08 11:31 | HHI.HP ---
[facility] Service Family Medicine Primary Care Physician Jarod Tian MD Admission Diagnosis Dyspnea, ESRD, HyperK, Bibasilar Densities Diagnoses: (1) ESRD (end stage renal disease) on dialysis (2) Dyspnea Diagnosis: Principal (3) Hypertension Diagnosis: Principal (4) HIV (human immunodeficiency virus infection) Diagnosis: Principal International Travel<30 Days: No Contact w/Intl Traveler<30days: No Known Affected Area: No History of Present Illness Ms Wynn is a 41 y/o F w/PMH of HIV, ESRD, and HTN who presented with shortness of breath that suddenly started last night after dialysis. She has a right anterior chest wall catheter in place, receives dialysis MWF. She follows with Dr. Rangel. She states that she felt volume overloaded yesterday after dialysis, weighing herself and noticing that she was 56 kg (from 58 kg) after dialysis when she usually is down to 51 kg. Has a dry cough that began 3 days ago. Denies chest pain, sore throat, N/V, diarrhea, palpitations, abdominal pain , dizziness, or fever. Has had contact with children who have had colds in the last week. Patient states that she drank a lot of fluids yesterday, over the 32 oz threshold required for her to remain below for her ESRD. Last viral load was undetectable for HIV. Her initial SOB all resolved after dialysis plus her K which was as high as 6.8 is back to normal today. She wants to go home today. Her only new complaint was pain in her right arm where she had blood draws and iv insertion attempted. She complained of pain there. She normally walks miles per day and wants to go back to that now. Her BPs are elevated and she states she normally takes 300 mg of labetolol TID plus Norvasc 10 mg a day plus 20 mg of lisinopril. She stated she gets some abx twice a week with dialysis and will have this tomorrow. She was not sure which abx this was but it is being given because of infection with her line in the past. Review of Systems Other Constitutional: COMPLAINS OF: Weight gain, Change in appetite, DENIES: Fever Endocrine: DENIES: Heat/cold intolerance, Polydipsia, Polyuria, Polyphagia Eyes: DENIES: Blurred vision, Eye pain, Vision loss Ears, nose, mouth, throat: DENIES: Hearing loss, Vertigo, Nasal discharge, Oral lesions, Throat pain, Epistaxis, Sinus Pain Respiratory: DENIES: Cough, Sputum production Cardiovascular: DENIES: Chest pain, Palpitations, Syncope, Dyspnea on Exertion Gastrointestinal: DENIES: Abdominal pain, Diarrhea, Nausea, Vomiting Musculoskeletal: DENIES: Joint pain, Muscle aches, Stiffness Integumentary: DENIES: Abnormal pigmentation, Pruritus, Rash Hematologic/lymphatic: DENIES: Bruising, Lymphadenopathy Neurologic: DENIES: Headache, Paresthesias, Seizures Psychiatric: DENIES: Anxiety, Confusion, Mood changes, Depression Past Family Social History Past Medical History ESRD HIV stable HTN Past Surgical History 08/2016 AV fistula placed 07/2016 removal of PD catheter due to infection 05/2016 placement of right anterior chest catheter Allergies: Coded Allergies: Iron Dextran (Verified Allergy, Severe, IRON INJECTIONS, 09/07/16) PT STATES THEY HAVE NOW CHANGED BRANDS OF IRON & SHE IS ABLE TO TAKE THE NEW BRAND OF IRON *MDRO Multi-Drug Resistant Organism (Verified Adverse Reaction, Unknown, ) KPC - E. cloacae (peritoneal fluid) - 05/04/16 Family History Dad: HTN Mom: glaucoma Social History Does not smoke or drink. Last used marijuana 6 months ago. Physical Exam Vital Signs Vital Signs Date Time Temp Pulse Resp B/P Pulse Ox O2 Delivery O2 Flow Rate FiO2 09/08/16 09:14 100 09/08/16 09:00 99.0 71 23 169/66 100 09/08/16 07:00 99 Room Air 09/08/16 06:00 70 09/08/16 04:00 73 09/08/16 04:00 99.0 73 25 165/85 100 09/08/16 02:00 74 09/08/16 00:00 74 09/08/16 00:00 99.4 74 21 145/64 98 09/07/16 20:00 100.4 78 23 165/75 94 09/07/16 20:00 94 Room Air 09/07/16 11:55 98.3 78 30 150/64 97 Physical Exam GENERAL: This is a well-nourished, well-developed patient, in some respiratory distress on admission with retractions and tachypnea. 09/08 she has clear lungs and is breathing comfortably SKIN: No rashes, ecchymoses or lesions. Cool and dry. HEAD: Atraumatic. Normocephalic. EYES: Pupils equal round and reactive. Extraocular motions intact. No scleral icterus. Clear eye drainage visible. ENT: Nose without bleeding, purulent drainage. Airway patent. NECK: Trachea midline. No JVD or lymphadenopathy. Supple, nontender, no meningeal signs. CARDIOVASCULAR: Regular rate and rhythm without murmurs, gallops, or rubs. RESPIRATORY: Coarse lung sounds bilaterally. Breath sounds equal bilaterally. GASTROINTESTINAL: Abdomen soft, non-tender, distension noted in the upper quadrants. No hepato-splenomegaly, or palpable masses. No guarding. well healed scars with some palpable areas where her procedures were done MUSCULOSKELETAL: Extremities without clubbing, cyanosis, or edema. No joint tenderness, effusion, or edema noted. No calf tenderness. NEUROLOGICAL: Awake and alert. Normal speech. Laboratory Laboratory Tests Test 09/07/16 09/07/16 09/08/16 16:50 19:08 05:20 Nasal Screen MRSA (PCR) MRSA DETECTED Potassium Level 4.4 4.5 White Blood Count 5.8 Red Blood Count 2.88 Hemoglobin 9.8 Hematocrit 29.0 Mean Corpuscular Volume 100.7 Mean Corpuscular Hemoglobin 34.1 Mean Corpuscular Hemoglobin 33.9 Concent Red Cell Distribution Width 16.7 Platelet Count 153 Mean Platelet Volume 9.8 Neutrophils (%) (Auto) 43.5 Lymphocytes (%) (Auto) 33.0 Monocytes (%) (Auto) 10.7 Eosinophils (%) (Auto) 12.0 Basophils (%) (Auto) 0.8 Neutrophils # (Auto) 2.5 Lymphocytes # (Auto) 1.9 Monocytes # (Auto) 0.6 Eosinophils # (Auto) 0.7 Basophils # (Auto) 0.0 CBC Comment DIFF FINAL Differential Comment Sodium Level 136 Chloride Level 98 Carbon Dioxide Level 26.9 Anion Gap 11 Blood Urea Nitrogen 55 Creatinine 6.48 Estimat Glomerular Filtration 8 Rate Random Glucose 94 Calcium Level 7.9 B-Type Natriuretic Peptide 2689 Date/Time Procedure Status Source Growth 09/07/16 09:50 Aerobic Blood Culture - Preliminary Resulted Blood Peripheral NO GROWTH IN 1 DAY 09/07/16 09:50 Anaerobic Blood Culture - Preliminary Resulted Blood Peripheral NO GROWTH IN 1 DAY Result Diagram: 09/08/16 0509/08/16 0520 Imaging Last Impressions Chest X-Ray 09/07/16 0806 Signed Impressions: Service Date/Time: Wednesday, September 07, 2016 08:24 - CONCLUSION: Patchy basilar airspace disease. Mu Dan MD Assessment and Plan Assessment and Plan 41 y/o F w/HTN, HIV, and ESRD admitted for dyspnea. //Dyspnea - fluid overload in the context of patient non-compliant with fluid restriction. high BNP - RR>20, Satting well. CXR shows patchy basilar airspace. Concerning for pneumonia, had PA and lateral and does not have pneumonia - Received Rocephin in the ED, will avoid Abx for now due to recent hx of C.diff - Consulted Nephro. Patient had dialysis yesterday with resolution of her SOB - Will order blood CXR - Duonebs PRN - great improvement after dialysis, ready for D/C home today //Hyperkalemia - 6.8 on admission, some hemolysis noted - Received duonebs in the ED plus Kayexalate - Repeat K+ 5.8 - Plan to correct with dialysis - Repeated BMP in the morning and it's fine //Macrocytic Anemia in the setting of ESRD probably anemia of chronic disease - Hgb 10.8 (baseline 10-11) - Will monitor //HTN - 166/85 in the ED, did not take meds this morning - Labetalol 150 mg PO BID given initially however she gave revised doses of meds including labetolol 300 mg TID Norvasc 10 mg daily lisinopril 20 mg daily - she will take her meds as directed by Nephrology as she is well enough to go home today //HIV - more than 10 yr hx, last viral load undetectable - follows with Dr Ojeda - will continue HIV meds and daily CBC //FEN: Renal diet w/1L fluid restriction //Code status: FULL //Dispo: Overnight for monitoring, d/c today she will follow up with Nephrology and has dialysis tomorrow. she knows she needs to restrict her fluids and states she will do better in future she has no DVT with her right arm and no pneumonia fortunately she improved very quickly and is able to leave today Problem List: (1) HIV (human immunodeficiency virus infection) Status: Chronic Physician Certification 2 Midnight Certification Type: Admission for Inpatient Services Order for Inpatient Services The services are ordered in accordance with Medicare regulations or non- Medicare payer requirements, as applicable. In the case of services not specified as inpatient-only, they are appropriately provided as inpatient services in accordance with the 2-midnight benchmark. Estimated LOS (days): 2 2 days is the estimated time the patient will need to remain in the hospital, assuming treatment plan goals are met and no additional complications. Post-Hospital Plan: Home Problem Qualifiers (1) Dyspnea: Qualified Code: R06.02 - Shortness of breath (2) Hypertension: Qualified Code: I15.1 - Hypertension secondary to other renal disorders Vero Paulson MD Sep 08, 2016 11:30
--- NOTE | 2016-09-08 11:36 | RADRPT ---
EXAM DATE/TIME: 09/08/2016 11:04 [facility] COMPARISON: No previous studies available for comparison. INDICATIONS : Right arm swelling. MEDICAL HISTORY : Hernia, hiatal. Hyperparathyroidism HIV. Parathyroid disease. Stroke. Numbness. HTN. Asthma. Dyspnea. GI Bleed. GERD. Renal disease and failure. Anemia. Cdiff. MRSA. SURGICAL HISTORY : Hysterectomy. section. Bilateral cataract extraction wiht lens implants. Periotneal dialys is. Thyroid surgery. Blood transfusions. ENCOUNTER: Initial ACUITY: 2 day PAIN SCORE: 6/10 LOCATION: Right arm. FINDINGS: There is spontaneous flow documented in the brachial, basilic, cephalic, axillary, and subclavian vei ns. The vessels are compressible and augmentation response is documented. No filling defects are se en. The flow is phasic with respiration. Direction of flow in the jugular vein is caudal. CONCLUSION: Normal examination. Mu Dan MD on September 08, 2016 at 11:33 Board Certified Radiologist. This report was verified electronically.
[2016-09-08] MEDS ORDERED: CHLORHEXIDINE GLUCONATE 2 % 1 PACK (2 CLOTHS)(extra cloths) TOPICAL PRN (12:00)
[2016-09-08] MEDS ORDERED: CALCIUM CARBONATE 500 MG CHEWABLE TAB CHEW SCH (12:00)
[2016-09-08] MEDS ORDERED: LABETALOL HCL 300 MG TAB PO SCH (14:00)
[2016-09-08] MEDS ORDERED: MUPIROCIN 2% OINT 1 APPLIC/GM SYR NASAL SCH (21:00)
[2016-09-09] MEDS ORDERED: CHLORHEXIDINE GLUCONATE 2 % 1 PACK (2 CLOTHS)(taper/protocol) TOPICAL SCH (04:00)
--- NOTE | 2016-09-09 14:58 | EKG ---
Date Performed: 09/08/2016 Time Performed: 11:37:16 PTAGE: 41 years EKG: Sinus rhythm POSSIBLE LEFT ATRIAL ENLARGEMENT PROLONGED QT INTERVAL Since previous tracing, no significant change noted ABNORMAL ECG PREVIOUS TRACING : 09/07/2016 08.15 DOCTOR: Dean Boyle Interpretating Date/Time 09/09/2016 14:57:26
== END 2016-09-08 12:35 | disposition home or self-care (01) | DRG 640 ==
LOC: NEPC 07:42 → NEDA 09:34 → N03A 11:45
PROVIDERS: ADMIT Family Medicine; ATTEND Family Medicine
PROC: 5A1D00Z (ICD-10-PCS; principal; 2016-09-07)
DX: E87.70 Fluid overload, unspecified (principal); B20 Human immunodeficiency virus [HIV] disease; I12.0 Hypertensive chronic kidney disease with stage 5 chronic kidney disease or end stage renal disease; N18.6 End stage renal disease; Z91.19 Patient's noncompliance with other medical treatment and regimen; E87.5 Hyperkalemia; D63.1 Anemia in chronic kidney disease; Z99.2 Dependence on renal dialysis
CPT/HCPCS: 71010; 71020; 76937; 80048; 83735; 83880; 84100; 84132; 85025; 87040; 87641; 93005; 93971; 94150; 94640; 94664; J0610; J0696; J1580; J1644; J1815; J7030; J7613

== ENCOUNTER 2016-09-22 02:27 | Emergency (ER) | payer MEDICARE, MEDICAID ==
[~2016-09-22 02:27] MED LIST changes: +AMLO10TA2 PO; -LABE100T2 PO; +LABE300T PO; -LEVA250T PO; +LISI-515 PO; -METR-1 PO; -PHOS667C5 PO; -POLY17S PO; -POTA10PO PO; -School Note
[2016-09-22 02:29] VITALS: BP 170/85; PULSE 78; RESP 18; TEMP 98.7; O2SAT 96
[2016-09-22] MEDS ORDERED: ACETAMINOPHEN/HYDROcodone 325 MG/5 MG TAB PO ONE (03:30)
[2016-09-22] MEDS ORDERED: DEXAMETHASONE SOD PHOS 4 MG/ML VIAL IM ONE (03:30)
--- NOTE | 2016-09-22 03:30 | PD ---
HPI Chief Complaint: Pain: Acute or Chronic Time Seen by Provider: 03:28 Travel History International Travel<30 days: No Contact w/Intl Traveler<30days: No Traveled to known affect area: No History of Present Illness HPI Patient comes in complaining of left hip pain that she awoke with yesterday. Patient denies any known injury. Patient describes pain is throbbing like in nature is progressively gotten worse. Pain is worse with movement. Pain improves with rest. Denies any numbness or tingling. Denies any loss or change in bowel or bladder or fevers. PFSH Past Medical History Hx Anticoagulant Therapy: No Anemia: Yes Arthritis: No Asthma: Yes Autoimmune Disease: Yes (HIV) Blood Disorders: No Anxiety: No Depression: No Heart Rhythm Problems: No Cancer: No High Cholesterol: No Chemotherapy: No Chest Pain: No Congestive Heart Failure: No COPD: No Cerebrovascular Accident: Yes Diabetes: No Dialysis: Yes (Fri ) Diminished Hearing: No Endocrine: No Gastrointestinal Disorders: Yes (HX GI BLEED) GERD: Yes Glaucoma: No Headaches: No Hepatitis: No Hiatal Hernia: Yes Hypertension: Yes Immune Disorder: No Kidney Stones: No Medical other: Yes (AV FISTULA LEFT ARM/VASCATH RIGHT CHEST) Musculoskeletal: Yes (JOINTS ACHE - ESPECIALLY LOWER EXTREMITIES ) Psychiatric: No Reproductive: No Respiratory: No Immunizations Current: Yes Migraines: No Myocardial Infarction: No Radiation Therapy: No Renal Failure: Yes Seizures: No Sickle Cell Disease: No Sleep Apnea: No Thyroid Disease: Yes (PARATHYROID) Ulcer: No Tetanus Vaccination: < 5 Years Influenza Vaccination: Yes ?: Not : 1 Para: 1 Past Surgical History Abdominal Surgery: No AICD: No Appendectomy: No Cardiac Surgery: No Section: Yes Cholecystectomy: No Ear Surgery: No Endocrine Surgery: No Eye Surgery: Yes (CATARACTS OSCAR FROM BOTH EYES IN 1999) Gynecologic Surgery: No Hysterectomy: Yes Joint Replacement: No Neurologic Surgery: No Oral Surgery: No Pacemaker: No Thoracic Surgery: No Other Surgery: Yes Social History Alcohol Use: No Tobacco Use: No Substance Use: No Allergies-Medications (Allergen,Severity, Reaction): Coded Allergies: Iron Dextran (Verified Allergy, Severe, IRON INJECTIONS, 09/22/16) PT STATES THEY HAVE NOW CHANGED BRANDS OF IRON & SHE IS ABLE TO TAKE THE NEW BRAND OF IRON *MDRO Multi-Drug Resistant Organism (Verified Adverse Reaction, Unknown, ) MRSA PCR 09/07/16 Positive KPC - E. cloacae (peritoneal fluid) - 05/04/16 Reported Meds & Prescriptions Reported Meds & Active Scripts Active Famotidine 10 Mg Tab 10 Mg PO DAILY Hydrocodone-Acetaminophen 5-325 mg Tab 1 Tab PO Q4H PRN Reported Lisinopril 20 Mg Tab 20 Mg PO DAILY Amlodipine (Amlodipine Besylate) 10 Mg Tab 10 Mg PO DAILY Labetalol (Labetalol HCl) 300 Mg Tab 300 Mg PO Q8HR Lipitor (Atorvastatin Calcium) 10 Mg Tab 10 Mg PO HS Tivicay (Dolutegravir Sodium) 50 Mg Tab 50 Mg PO DAILY Epivir (Lamivudine) 150 Mg Tab 150 Mg PO BID Edurant (Rilpivirine) 25 Mg Tab 25 Mg PO DAILY Tums Ultra 1000 (Calcium Carbonate (Antacid)) 1,000 Mg Chew 4,000 Mg CHEW DAILY Cynthia-Yaquelin (B-Complex W/ C & Folic Acid) 1 Tab 1 Tab PO DAILY Review of Systems Except as stated in HPI: all other systems reviewed are Neg Physical Exam Narrative GENERAL: Well-developed, well nourished, in no acute distress, and non-ill appearing. SKIN: Focused skin assessment warm and dry. HEAD: Atraumatic. Normocephalic. EYES: Pupils equal and round. EOMI. No scleral icterus. No injection or drainage. ENT: No nasal bleeding or discharge. Mucous membranes pink and moist. NECK: Trachea midline. Supple. No nuclear rigidity. CARDIOVASCULAR: Dorsal pulses 2+, intact, and equal bilaterally. RESPIRATORY: No accessory muscle use. No respiratory distress. MUSCULOSKELETAL: No obvious deformities. No clubbing. No cyanosis. No edema. Decreased range of motion left hip secondary to pain. Hip: FROM and equal BL with passive flexion, extension, Abduction, Adduction, and internal/external rotation. Pulses equal BL distal to injury. Capillary refill less than 2 seconds distal to injury and equal BL. FROM distal to injury and equal BL. Strength distal to injury equal BL. NV intact distal to injury and equal BL. Plantar flexion and dorsal flexion equal BL. Dorsal pulses equal BL. Sensation equal BL 1st web space. Patient reports pain over lateral aspect of left hip is worse with passive internal/external rotation. NEUROLOGICAL: Awake and alert. No obvious cranial nerve deficits. Motor grossly within normal limits. Normal speech. PSYCHIATRIC: Appropriate mood and affect; insight and judgment normal. Data Data Last Documented VS Vital Signs Date Time Temp Pulse Resp B/P Pulse Ox O2 Delivery O2 Flow Rate FiO2 09/22/16 02:29 98.7 78 18 170/85 96 Room Air Orders Hip, Uni(Ap&Lat) W Ap Pelvis (09/22/16 ) Dexamethasone Inj (Decadron Inj) (09/22/16 03:30) Acetamin-Hydrocod 325-5 Mg ([place] 5-325 (09/22/16 03:30) MDM Medical Decision Making Medical Screen Exam Complete: Yes Emergency Medical Condition: Yes Interpretation(s) Hip x-ray read by the radiologist shows: Vascular calcifications are noted. Differential Diagnosis Fracture, strain, contusion, arthritis, avascular necrosis, other Narrative Course There is no clinical evidence for fracture. There is no clinical evidence to suspect bony injury by exam. Radiographic examination revealed no fracture seen at this time. No obvious ligamental injury or internal derangement is noted at this time. The distal extremity appears neurovascularly intact, without evidence of neurovascular injury nor compartment syndrome. Tendon exam also was intact. The patient was discharged and given warnings for vascular compromise. The patient is to follow up with Orthopedics. The patient agrees with plan. Patient in no obvious distress upon re-evaluation. All pertinent Radiology result(s) discussed with patient. Any questions/concerns in reference to patient diagnosis/condition discussed and clarified prior to patient's discharge. Reinforced sheer importance of close follow up with patient's primary physician or primary care clinic and/or orthopedics. Instructed patient to return to ED immediately, if symptoms return/worsen. Pt showed understanding of above instructions. Further instructions and recommendations were detailed in discharge paperwork. Pt ambulated without difficulty out of ED at discharge. Diagnosis Primary Impression: Left hip pain Patient Instructions: General Instructions, Hip Pain (ED) Additional Instructions: Follow-up with your primary care physician and/or orthopedics in 3-5 days for reevaluation. Return to the emergency department if symptoms get worse. Disposition: 01 DISCHARGE HOME Condition: Stable Mark Shaw Sep 22, 2016 03:30
--- NOTE | 2016-09-22 03:49 | RADRPT ---
EXAM DATE/TIME: 09/22/2016 03:46 [facility] COMPARISON: No previous studies available for comparison. INDICATIONS : Increasing nontraumatic hip for two days. MEDICAL HISTORY : HIV Hiatal hernia. Stroke. Asthma GERD Renal failure SURGICAL HISTORY : Hysterectomy. section. ENCOUNTER: Initial ACUITY: 2 days PAIN SCORE: 10/10 LOCATION: Left hip FINDINGS: RR iliac artery calcifications identified. Examination of the left hip was performed with AP Pelvis. The primary and secondary trabecular patte rn of the femoral neck is intact. The hip joint is of normal width without significant sclerosis or bony hypertrophy. The acetabulum is grossly intact. CONCLUSION: Vascular calcifications are noted. Mu Dan MD on September 22, 2016 at 3:47 Board Certified Radiologist. This report was verified electronically.
== END 2016-09-22 04:59 | disposition home or self-care (01) ==
LOC: NEPD 02:27
DX: M25.552 Pain in left hip (principal); D64.9 Anemia, unspecified; J45.909 Unspecified asthma, uncomplicated; K21.9 Gastro-esophageal reflux disease without esophagitis; I10 Essential (primary) hypertension; Z21 Asymptomatic human immunodeficiency virus [HIV] infection status; Z79.899 Other long term (current) drug therapy; Z86.73 Personal history of transient ischemic attack (TIA), and cerebral infarction without residual deficits
CPT/HCPCS: 73502; 96372; 99284; J1100

== ENCOUNTER 2016-10-12 15:57 | Inpatient (IN) | payer MEDICARE, MEDICAID ==
[2016-10-12] VITALS (7 sets, daily range): BP systolic 104–122; BP diastolic 65–75; PULSE 100–116; RESP 14–20; TEMP 99.3–101.6; O2SAT 98–100
[~2016-10-12] VITALS: Ht 160 cm; Wt 49.0 kg
--- NOTE | 2016-10-12 16:08 | PD ---
Physical Exam Date Seen by Provider: Oct 12, 2016 Time Seen by Provider: 16:04 Data Data Last Documented VS Vital Signs Date Time Temp Pulse Resp B/P Pulse Ox O2 Delivery O2 Flow Rate FiO2 10/12/16 15:59 101.6 116 17 115/66 98 MDM Supervised Visit with KEYANNA: No Narrative Course 41 YO F with complaint of chills, left sided chest pain with inspiration, malaise, cold symptoms x 3 days. Endorses decreased appetite, nonproductive cough. History of ESRD, right sided vasc cath, on dialysis M, W,F. Followed by Dr. Tian. Vitals reviewed. Patient seen in triage, awaiting priority bed placement. Osiris Bolden Oct 12, 2016 16:08
--- NOTE | 2016-10-12 16:47 | RADRPT ---
EXAM DATE/TIME: 10/12/2016 16:14 [facility] COMPARISON: CHEST PA & LAT, September 08, 2016, 10:06. INDICATIONS : Chest pain. MEDICAL HISTORY : Renal failure, chronic. Gastroesophageal reflux disease. Hypertension. SURGICAL HISTORY : Vas-cath ENCOUNTER: Initial ACUITY: 1 week PAIN SCORE: 8/10 LOCATION: Left chest FINDINGS: No infiltrate, effusion or pneumothorax. Heart size normal. There is a tunneled right internal jugular double lumen dialysis catheter with distal tip in the rig ht atrium. CONCLUSION: No evidence of acute cardiopulmonary disease. Chet Pang MD on October 12, 2016 at 16:42 Board Certified Radiologist. This report was verified electronically.
[2016-10-12] MEDS ORDERED: ACETAMINOPHEN 500 MG CPLT PO ONE (17:00)
--- NOTE | 2016-10-12 17:13 | PD ---
HPI Chief Complaint: Fever Time Seen by Provider: 16:18 Travel History International Travel<30 days: No Contact w/Intl Traveler<30days: No Traveled to known affect area: No History of Present Illness HPI Is a 40 year-old woman presents emergency department complaining of chills and sweats for the past 3 days. Said decreased appetite. She also had pain on the left side of her chest. She's had a little bit a dry cough and a lot of myalgias and body aches. She is a history of HIV with an undetectable viral load, end-stage renal disease on hemodialysis, and hypertension. She does have a Vas-Cath in the right chest that she's had for several months. She has a left AV fistula but still maturing. She had dialysis on Friday without incident. Patient came in today because she was feeling worse. History Past Medical History Narrative Medical HIV, follows with Dr. Ojeda, on meds, last viral load was reportedly undetectable End-stage renal disease, follows with Dr. Tian, on Friday hemodialysis Hypertension Tetanus Vaccination: < 5 Years Influenza Vaccination: Yes : 1 Para: 1 Social History Alcohol Use: No Tobacco Use: No Allergies-Medications (Allergen,Severity, Reaction): Coded Allergies: Iron Dextran (Verified Allergy, Severe, IRON INJECTIONS, 09/22/16) PT STATES THEY HAVE NOW CHANGED BRANDS OF IRON & SHE IS ABLE TO TAKE THE NEW BRAND OF IRON *MDRO Multi-Drug Resistant Organism (Verified Adverse Reaction, Unknown, ) MRSA PCR 09/07/16 Positive KPC - E. cloacae (peritoneal fluid) - 05/04/16 Reported Meds & Prescriptions Reported Meds & Active Scripts Active Famotidine 10 Mg Tab 10 Mg PO DAILY Hydrocodone-Acetaminophen 5-325 mg Tab 1 Tab PO Q4H PRN Reported Lisinopril 20 Mg Tab 20 Mg PO DAILY Amlodipine (Amlodipine Besylate) 10 Mg Tab 10 Mg PO DAILY Labetalol (Labetalol HCl) 300 Mg Tab 300 Mg PO Q8HR Lipitor (Atorvastatin Calcium) 10 Mg Tab 10 Mg PO HS Tivicay (Dolutegravir Sodium) 50 Mg Tab 50 Mg PO DAILY Epivir (Lamivudine) 150 Mg Tab 150 Mg PO BID Edurant (Rilpivirine) 25 Mg Tab 25 Mg PO DAILY Tums Ultra 1000 (Calcium Carbonate (Antacid)) 1,000 Mg Chew 4,000 Mg CHEW DAILY Cynthia-Yaquelin (B-Complex W/ C & Folic Acid) 1 Tab 1 Tab PO DAILY Review of Systems Except as stated in HPI: all other systems reviewed are Neg Physical Exam Narrative GENERAL: 40 year-old woman, little bit tachypneic, nontoxic. SKIN: Focused skin assessment warm/dry. She has a Vas-Cath in the right chest. There is no drainage erythema redness or tenderness. NECK: Trachea midline. No JVD. CARDIOVASCULAR: Regular rate and rhythm. No murmur appreciated. RESPIRATORY: No accessory muscle use. Clear to auscultation. Breath sounds equal bilaterally. GASTROINTESTINAL: Abdomen soft, non-tender, nondistended. Hepatic and splenic margins not palpable. MUSCULOSKELETAL: No obvious deformities. No clubbing. No cyanosis. No edema. NEUROLOGICAL: Awake and alert. No obvious cranial nerve deficits. Motor grossly within normal limits. Normal speech. PSYCHIATRIC: Appropriate mood and affect; insight and judgment normal. Data Data Last Documented VS Vital Signs Date Time Temp Pulse Resp B/P Pulse Ox O2 Delivery O2 Flow Rate FiO2 10/12/16 16:35 20 99 Room Air 10/12/16 15:59 101.6 116 115/66 Orders Complete Blood Count With Diff (10/12/16 16:18) Comprehensive Metabolic Panel (10/12/16 16:18) Lactic Acid Sepsis Protocol (10/12/16 16:18) Magnesium (Mg) (10/12/16 16:18) Troponin I (10/12/16 16:18) Urinalysis - C+S If Indicated (10/12/16 16:18) Influenzae A/B Antigen (10/12/16 16:18) Blood Culture (10/12/16 16:18) Chest, Single Ap (10/12/16 16:18) Blood Glucose (10/12/16 16:18) Ecg Monitoring (10/12/16 16:18) Iv Access Insert/Monitor (10/12/16 16:18) Oximetry (10/12/16 16:18) Oxygen Administration (10/12/16 16:18) Acetaminophen (Tylenol) (10/12/16 17:00) Labs Laboratory Tests Test 10/12/16 16:30 Lactic Acid Level 1.2 mmol/L MDM Medical Decision Making Medical Screen Exam Complete: Yes Emergency Medical Condition: Yes Differential Diagnosis Sepsis, influenza, URI, pneumonia, other Narrative Course Medical decision-making 40 year-old woman presents to the emergency department complaining of fevers chills left-sided chest pain myalgias and decreased appetite suggestive of sepsis or infection. She looks generally well. She does of wood. She will manage HIV, as well as end-stage renal disease. She has a Vas-Cath. She be high risk for bacteremia and sepsis. We'll check labs, x-ray, cultures, IV fluid bolus, she had C. difficile in April would like to avoid broad- spectrum antibiotics for possible. If she develops severe sepsis or and oriented dysfunction will need empiric antibiotics. Luisito Moreno MD Oct 12, 2016 17:13
[2016-10-12] MEDS ORDERED: CHOL1CAP34 PO (18:18)
[2016-10-12] MEDS ORDERED: ASPI1TAB91 PO (18:18)
[2016-10-12] MEDS ORDERED: VALA1TAB PO (18:18)
[2016-10-12] MEDS ORDERED: RANI150T PO (18:18)
[2016-10-12] MEDS ORDERED: RENACAP2 PO (18:20)
[2016-10-12 18:26] LABS: AUTOMATED NEUTROPHIL # 14.7 TH/MM3 (1.8-7.7); BASOPHIL # 0.1 TH/MM3 (0-0.2); BASOPHIL % 0.4 % (0.0-2.0); EOSINOPHIL # 0.1 TH/MM3 (0-0.4); EOSINOPHIL % 0.7 % (0.0-4.0); HEMATOCRIT 33.6 % (35.0-46.0); LYMPH % 3.9 % (9.0-44.0); LYMPHOCYTE # 0.6 TH/MM3 (1.0-4.8); MEAN CELL VOLUME 101.5 FL (80.0-100.0); MEAN CORPUSCULAR HEMOGLOBIN 34.1 PG (27.0-34.0); MEAN CORPUSCULAR HGB CONC 33.6 % (32.0-36.0); MONO % 5.9 % (0.0-8.0); NEUT % 89.1 % (16.0-70.0); PLATELET COUNT 116 TH/MM3 (150-450); RED BLOOD COUNT 3.31 MIL/MM3 (4.00-5.30); RED CELL DISTRIBUTION WIDTH 15.6 % (11.6-17.2); WHITE BLOOD COUNT 16.5 TH/MM3 (4.0-11.0)
[2016-10-12 18:28] LABS: ALKALINE PHOSPHATASE 158 U/L (45-117); TOTAL BILIRUBIN ADULT 1.5 MG/DL (0.2-1.0)
[2016-10-12 18:29] LABS: ALT (GPT) 45 U/L (10-53); ANION GAP 17 MEQ/L (5-15); AST (GOT) 46 U/L (15-37); BICARBONATE 22.3 MEQ/L (21.0-32.0); BLOOD UREA NITROGEN 53 MG/DL (7-18); CHLORIDE 92 MEQ/L (98-107); GLOMERULAR FILTRATION RATE 5 ML/MIN (>89); MAGNESIUM 1.6 MG/DL (1.5-2.5); POTASSIUM 4.8 MEQ/L (3.5-5.1); SODIUM (NA) 131 MEQ/L (136-145)
[2016-10-12 18:34] LABS: HEMO FLAGS AUTO DIFF
[2016-10-12] MEDS ORDERED: CEFEPIME INJ 1,000 MG in SODIUM CHLORIDE 0.9% INJ 100 ML IV ONE (18:45)
[2016-10-12] MEDS ORDERED: VANCOMYCIN INJ 1,000 MG in SODIUM CHLOR 0.9% 250 ML INJ 250 ML IV ONE (18:45)
[2016-10-12] MEDS ORDERED: SODIUM CHLOR 0.9% 1000 ML INJ 1,000 ML IV ONE (19:15)
[2016-10-12 19:20] LABS: BANDS 15 % (0-6); EOSINOPHILS 2 % (0-4); POLYS (SEG NEUTROPHILS) 76 % (16-70); TOXIC VACUOLATION PRESENT (NONE SEEN); WBC DIFF SAMPLE 100
[2016-10-12 19:21] LABS: PLATELET ESTIMATE SMEAR LOW (NORMAL); PLATELET MORPHOLOGY ENLARGED (NORMAL); SCAN/DIFF FINAL DIFF MANUAL
[2016-10-12 19:22] LABS: KERATOCYTES OCC (NORMAL)
--- NOTE | 2016-10-12 19:25 | HHI.HP ---
HPI Service [facility] Primary Care Physician Jarod Tian MD Admission Diagnosis sepsis Diagnoses: (1) Sepsis Diagnosis: Principal (2) ESRD (end stage renal disease) on dialysis Diagnosis: Principal (3) HIV (human immunodeficiency virus infection) Diagnosis: Principal (4) HTN (hypertension) Diagnosis: Principal (5) Thrombocytopenia Diagnosis: Principal Travel History International Travel<30 Days: No Contact w/Intl Traveler <30 Da: No Traveled to Known Affected Are: No History of Present Illness This is a 41-year-old female with a PMH of HTN, ESRD on HD M/W/F and HIV (CD4 35 on 06/24/13, HIV RNA undetectable) on HAART who presented to the ER w/ complaints of generalized malaise, fever and chills x3 days. Denies cough, SOB , nausea, vomiting, diarrhea or sick contacts. +Right Chest Vas-Cath for HD, had HD on Friday w/ no complications. On arrival, BP 150/66, HR 116, O2 sat 98 % on RA, Temp 101.6. WBC 16.5. Platelets 116, previously 153 on 09/08/16, + bandemia. Creatinine 9.77, previously 6.48 on 09/08/16. Lactic Acid 1.2. CXR with no acute findings. S/p Blood Cultures, Vanc/Cefepime in ER. Review of Systems Except as stated in HPI: all other systems reviewed are Neg ROS: 14 point review of systems otherwise negative. Past Family Social History Past Medical History PMH: HTN, ESRD on HD /W/ and HIV (CD4 35 on 06/24/13, HIV RNA undetectable) on HAART Past Surgical History PAST SURGICAL HISTORY: Vas-Cath, AV Fistula, Bilateral Cataracts Allergies: Coded Allergies: Iron Dextran (Verified Allergy, Severe, IRON INJECTIONS, 09/22/16) PT STATES THEY HAVE NOW CHANGED BRANDS OF IRON & SHE IS ABLE TO TAKE THE NEW BRAND OF IRON *MDRO Multi-Drug Resistant Organism (Verified Adverse Reaction, Unknown, ) MRSA PCR 09/07/16 Positive [facility] - E. cloacae (peritoneal fluid) - 05/04/16 Family History PAST FAMILY HISTORY: Reviewed. No h/o DM or CAD Social History PAST SOCIAL HISTORY: Negative for alcohol, tobacco or drugs. Physical Exam Vital Signs Vital Signs Date Time Temp Pulse Resp B/P Pulse Ox O2 Delivery O2 Flow Rate FiO2 10/12/16 18:39 100.3 108 14 115/65 99 Room Air 10/12/16 17:00 101.4 102 16 122/75 99 Room Air 10/12/16 16:35 20 99 Room Air 10/12/16 15:59 101.6 116 17 115/66 98 Physical Exam PE: GENERAL: Middle-aged white female in no acute distress. HEENT: PERRLA, EOMI. No scleral icterus or conjunctival pallor. No lid lag or facial droop. CARDIOVASCULAR: Regular rate and rhythm. No obvious murmurs to auscultation. No chest tenderness to palpation. Right chest HD Cath, no signs of infection RESPIRATORY: No obvious rhonchi or wheezing. Clear to auscultation. Breath sounds equal bilaterally. GASTROINTESTINAL: Abdomen soft, non-tender, nondistended. BS normal. MUSCULOSKELETAL: Extremities without clubbing, cyanosis, or edema. No obvious deformities. NEUROLOGICAL: Awake, alert and oriented x4. No focal neurologic deficits. Moving both upper and lower extremities spontaneously. Laboratory Laboratory Tests Test 10/12/16 16:30 White Blood Count 16.5 Red Blood Count 3.31 Hemoglobin 11.3 Hematocrit 33.6 Mean Corpuscular Volume 101.5 Mean Corpuscular Hemoglobin 34.1 Mean Corpuscular Hemoglobin 33.6 Concent Red Cell Distribution Width 15.6 Platelet Count 116 Mean Platelet Volume 11.7 Neutrophils (%) (Auto) 89.1 Lymphocytes (%) (Auto) 3.9 Monocytes (%) (Auto) 5.9 Eosinophils (%) (Auto) 0.7 Basophils (%) (Auto) 0.4 Neutrophils # (Auto) 14.7 Lymphocytes # (Auto) 0.6 Monocytes # (Auto) 1.0 Eosinophils # (Auto) 0.1 Basophils # (Auto) 0.1 CBC Comment AUTO DIFF Differential Total Cells 100 Counted Neutrophils % (Manual) 76 Band Neutrophils % 15 Lymphocytes % 2 Monocytes % 5 Eosinophils % 2 Neutrophils # (Manual) 15.0 Differential Comment FINAL DIFF MANUAL Toxic Vacuolation PRESENT Platelet Estimate LOW Platelet Morphology Comment ENLARGED Keratocytes OCC Sodium Level 131 Potassium Level 4.8 Chloride Level 92 Carbon Dioxide Level 22.3 Anion Gap 17 Blood Urea Nitrogen 53 Creatinine 9.77 Estimat Glomerular Filtration 5 Rate Random Glucose 84 Lactic Acid Level 1.2 Calcium Level 8.9 Magnesium Level 1.6 Total Bilirubin 1.5 Aspartate Amino Transf 46 (AST/SGOT) Alanine Aminotransferase 45 (ALT/SGPT) Alkaline Phosphatase 158 Troponin I LESS THAN 0.02 Total Protein 9.5 Albumin 2.9 Date/Time Procedure Status Source Growth 10/12/16 17:35 Influenza Types A,B Antigen (JAELYN) - Final Complete Nasal Washing NEGATIVE FOR FLU A AND B ANTIGEN.... 10/12/16 16:30 Aerobic Blood Culture Received Blood Peripheral Pending 10/12/16 16:30 Anaerobic Blood Culture Received Blood Peripheral Pending Result Diagram: 10/12/16 1630 10/12/16 1630 Assessment and Plan Problem List: (1) Sepsis ICD Code: A41.9 Status: Acute (2) HIV (human immunodeficiency virus infection) ICD Code: Z21 Status: Chronic (3) ESRD (end stage renal disease) on dialysis ICD Code: N18.6 Status: Acute (4) Thrombocytopenia ICD Code: D69.6 Status: Acute (5) HTN (hypertension) ICD Code: I10 Status: Acute Assessment and Plan A/P: 1. Sepsis: Temp 101.6, HR 116, WBC 16.5, Source-Unclear. +Immunocompromised, h/o HIV on HAART. +Right Chest HD Cath. S/p Blood Cultures, Vanc/Cefepime in ER. Will follow up cultures, continue IV Abx, s/p IVF in ER, hold further IVF in light of ESRD. 2. HIV: Undetectable. Currently on HAART, resume home medications. 3. ESRD on HD: M/W/F. Follows w/ Dr. Rangel. Last HD on Friday with no complications. Consult Nephrology to resume HD. 4. HTN: Controlled. Resume home medications, monitor BP in light of sepsis 5. Thrombocytopenia: Platelets 116, previously 153 on 09/08/16, no active bleeding. Monitor. Repeat labs in am. 6. DVT Prophylaxis: Heparin sq 7. Social work for d/c planning as needed. 8. Case discussed w/ ER physician at length. Physician Certification 2 Midnight Certification Type: Admission for Inpatient Services Order for Inpatient Services The services are ordered in accordance with Medicare regulations or non- Medicare payer requirements, as applicable. In the case of services not specified as inpatient-only, they are appropriately provided as inpatient services in accordance with the 2-midnight benchmark. Estimated LOS (days): 2 days is the estimated time the patient will need to remain in the hospital, assuming treatment plan goals are met and no additional complications. Post-Hospital Plan: Not yet determined Ange Sinha MD Oct 12, 2016 19:25
[2016-10-12] MEDS ORDERED: SENNOSIDES 8.6 MG TAB PO PRN (19:30)
[2016-10-12] MEDS ORDERED: LACTULOSE SYRUP 20 GM/30 ML CUP PO PRN (19:30)
[2016-10-12] MEDS ORDERED: ONDANSETRON HCL 4 MG/2 ML VIAL IVP PRN (19:30)
[2016-10-12] MEDS ORDERED: BISACODYL 10 MG SUPP RECTAL PRN (19:30)
[2016-10-12] MEDS ORDERED: ACETAMINOPHEN/HYDROcodone 325 MG/5 MG TAB PO PRN (19:30)
[2016-10-12] MEDS ORDERED: MAGNESIUM HYDROXIDE SUSP 30 ML CUP PO PRN (19:30)
[2016-10-12] MEDS: LISINOPRIL 20 MG TAB PO SCH (21:00)
[2016-10-12] MEDS: DOCUSATE SODIUM 50 MG/SENNA 8.6 MG TAB PO SCH (23:03)
[2016-10-12] MEDS: SODIUM CHLORIDE 0.9% FLUSH 10 ML FLUSH IV FLUSH SCH (23:04)
[2016-10-12] MEDS: MORPHINE SULFATE 4 MG/ML INJ IV PRN (23:30)
[2016-10-13] VITALS (7 sets, daily range): BP systolic 93–109; BP diastolic 52–62; PULSE 88–102; RESP 16–18; TEMP 98.3–99.6; O2SAT 96–100
[2016-10-13] MEDS: CEFEPIME INJ 1,000 MG in SODIUM CHLORIDE 0.9% INJ 100 ML IV SCH (08:43)
[2016-10-13] MEDS: HEPARIN SODIUM - SQ 10,000 UNITS/ML VIAL SQ SCH ×2 (08:43→20:11)
[2016-10-13] MEDS: SODIUM CHLORIDE 0.9% FLUSH 10 ML FLUSH IV FLUSH SCH ×2 (08:45→20:11)
[2016-10-13] MEDS: MORPHINE SULFATE 4 MG/ML INJ IV PRN (08:45)
[2016-10-13] MEDS: VITAMIN B CMPLX/VITC/FOLIC AC CAP PO SCH (08:46)
[2016-10-13] MEDS: DOCUSATE SODIUM 50 MG/SENNA 8.6 MG TAB PO SCH ×2 (08:46→20:10)
[2016-10-13] MEDS: valACYclovir HCL 500 MG TAB PO SCH (08:48)
[2016-10-13] MEDS: ASPIRIN EC 81 MG TABEC PO SCH (08:48)
[2016-10-13] MEDS ORDERED: RILPIVIRINE 25 MG TAB PO SCH (09:00)
[2016-10-13] MEDS ORDERED: DOLUTEGRAVIR SODIUM 50 MG TAB PO SCH (09:00)
[2016-10-13] MEDS ORDERED: CEFEPIME INJ 1,000 MG in SODIUM CHLORIDE 0.9% INJ 100 ML IV SCH (09:00)
[2016-10-13] MEDS: LISINOPRIL 20 MG TAB PO SCH (09:00)
[2016-10-13] MEDS: LABETALOL HCL 300 MG TAB PO SCH (09:00)
--- NOTE | 2016-10-13 09:43 | PD.CONS ---
HPI Service Nephrology Consult Requested By Reason for Consult ESRD Primary Care Physician Jarod Tian MD History of Present Illness This is a 41 year old lady with history of ESRD on hemodialysis MWF. Underwent dialysis on Friday. Admitted with fever, temperature was as high as 101.4. Received Vancomycin and Cefepime in the ER. Cefepime being continued. Low grade fevers continue. Has right sided PermCath for dialysis. History of HIV, apparently viral load is undetectable. Review of Systems Constitutional: COMPLAINS OF: Fatigue, Fever, Chills Eyes: DENIES: Diplopia Cardiovascular: DENIES: Chest pain, Palpitations Gastrointestinal: DENIES: Abdominal pain, Black stools Genitourinary: DENIES: Abnormal vaginal bleeding Musculoskeletal: COMPLAINS OF: Muscle aches, DENIES: Joint pain Hematologic/lymphatic: DENIES: Bruising, Lymphadenopathy Neurologic: DENIES: Abnormal gait, Headache Past Family Social History Allergies: Coded Allergies: Iron Dextran (Verified Allergy, Severe, IRON INJECTIONS, 09/22/16) PT STATES THEY HAVE NOW CHANGED BRANDS OF IRON & SHE IS ABLE TO TAKE THE NEW BRAND OF IRON *MDRO Multi-Drug Resistant Organism (Verified Adverse Reaction, Unknown, ) MRSA PCR 09/07/16 Positive [facility] - E. cloacae (peritoneal fluid) - 05/04/16 Past Medical History HIV ESRD Anemia Hypertension Reported Medications Reported Meds & Active Scripts Active Famotidine 10 Mg Tab 10 Mg PO DAILY Hydrocodone-Acetaminophen 5-325 mg Tab 1 Tab PO Q4H PRN Reported Lisinopril 20 Mg Tab 20 Mg PO DAILY Amlodipine (Amlodipine Besylate) 10 Mg Tab 10 Mg PO DAILY Labetalol (Labetalol HCl) 300 Mg Tab 300 Mg PO Q8HR Lipitor (Atorvastatin Calcium) 10 Mg Tab 10 Mg PO HS Tivicay (Dolutegravir Sodium) 50 Mg Tab 50 Mg PO DAILY Epivir (Lamivudine) 150 Mg Tab 150 Mg PO BID Edurant (Rilpivirine) 25 Mg Tab 25 Mg PO DAILY Tums Ultra 1000 (Calcium Carbonate (Antacid)) 1,000 Mg Chew 4,000 Mg CHEW DAILY Cynthia-Yaquelin (B-Complex W/ C & Folic Acid) 1 Tab 1 Tab PO DAILY Active Ordered Medications Current Medications Medications (Trade) Dose Ordered Sig/Chinmay Route Start Time Stop Time Status Last Admin (NS Flush) 2 ml UNSCH PRN IV FLUSH 10/12/16 19:30 (NS Flush) 2 ml BID IV FLUSH 10/12/16 21:00 10/12/16 23:04 (Zofran Inj) 4 mg Q6H PRN IVP 10/12/16 19:30 10/12/16 23:31 (Heparin Inj) 5,000 units Q12H SQ 10/13/16 09:00 10/13/16 08:43 (Tylenol) 650 mg Q6H PRN PO 10/12/16 19:30 ([place]brook 5-325 Mg) 1 tab Q4H PRN PO 10/12/16 19:30 (Morphine Inj) 2 mg Q3H PRN IV 10/12/16 19:30 10/13/16 08:45 (Cass-Colace) 1 tab BID PO 10/12/16 21:00 10/13/16 08:46 (Milk Of Magnesia Liq) 30 ml Q12H PRN PO 10/12/16 19:30 (Senokot) 17.2 mg Q12H PRN PO 10/12/16 19:30 (Dulcolax Supp) 10 mg DAILY PRN RECTAL 10/12/16 19:30 (Lactulose Liq) 30 ml DAILY PRN PO 10/12/16 19:30 (Norvasc) 10 mg DAILY PO 10/13/16 09:00 (Ecotrin Ec) 81 mg DAILY PO 10/13/16 09:00 10/13/16 08:48 (Lipitor) 10 mg MOWEFR PO 10/14/16 20:00 (Nephrocaps) 1 cap DAILY PO 10/13/16 09:00 10/13/16 08:46 (Trandate) 300 mg TID PO 10/13/16 09:00 (Epivir) 150 mg DAILY PO 10/13/16 09:00 10/13/16 08:47 (Prinivil) 20 mg BID PO 10/12/16 21:00 (Edurant) 25 mg DAILY PO 10/13/16 09:00 Valacyclovir HCl 1000 mg 1,000 mg DAILY PO 10/13/16 09:00 10/13/16 08:48 (Maxipime Inj/NS Inj) 100 ml @ 200 mls/hr Q24H IV 10/13/16 09:00 10/13/16 08:43 Family History reviewed, non contributory Social History no tobacco, no ETOH Physical Exam Vital Signs Vital Signs Date Time Temp Pulse Resp B/P Pulse Ox O2 Delivery O2 Flow Rate FiO2 10/13/16 08:01 99.0 92 17 103/59 96 10/13/16 05:03 99.6 102 16 93/52 100 10/13/16 05:03 Room Air 10/12/16 23:35 20 10/12/16 23:10 99.3 116 16 117/67 100 10/12/16 22:30 114 10/12/16 21:10 99.5 100 16 104/65 100 10/12/16 18:39 100.3 108 14 115/65 99 Room Air 10/12/16 17:00 101.4 102 16 122/75 99 Room Air 10/12/16 16:35 20 99 Room Air 10/12/16 15:59 101.6 116 17 115/66 98 Laboratory Laboratory Tests Test 10/12/16 16:30 White Blood Count 16.5 Red Blood Count 3.31 Hemoglobin 11.3 Hematocrit 33.6 Mean Corpuscular Volume 101.5 Mean Corpuscular Hemoglobin 34.1 Mean Corpuscular Hemoglobin 33.6 Concent Red Cell Distribution Width 15.6 Platelet Count 116 Mean Platelet Volume 11.7 Neutrophils (%) (Auto) 89.1 Lymphocytes (%) (Auto) 3.9 Monocytes (%) (Auto) 5.9 Eosinophils (%) (Auto) 0.7 Basophils (%) (Auto) 0.4 Neutrophils # (Auto) 14.7 Lymphocytes # (Auto) 0.6 Monocytes # (Auto) 1.0 Eosinophils # (Auto) 0.1 Basophils # (Auto) 0.1 CBC Comment AUTO DIFF Differential Total Cells 100 Counted Neutrophils % (Manual) 76 Band Neutrophils % 15 Lymphocytes % 2 Monocytes % 5 Eosinophils % 2 Neutrophils # (Manual) 15.0 Differential Comment FINAL DIFF MANUAL Toxic Vacuolation PRESENT Platelet Estimate LOW Platelet Morphology Comment ENLARGED Keratocytes OCC Sodium Level 131 Potassium Level 4.8 Chloride Level 92 Carbon Dioxide Level 22.3 Anion Gap 17 Blood Urea Nitrogen 53 Creatinine 9.77 Estimat Glomerular Filtration 5 Rate Random Glucose 84 Lactic Acid Level 1.2 Calcium Level 8.9 Magnesium Level 1.6 Total Bilirubin 1.5 Aspartate Amino Transf 46 (AST/SGOT) Alanine Aminotransferase 45 (ALT/SGPT) Alkaline Phosphatase 158 Troponin I LESS THAN 0.02 Total Protein 9.5 Albumin 2.9 Date/Time Procedure Status Source Growth 10/12/16 17:35 Influenza Types A,B Antigen (JAELYN) - Final Complete Nasal Washing NEGATIVE FOR FLU A AND B ANTIGEN.... 10/12/16 16:30 Aerobic Blood Culture Received Blood Peripheral Pending 10/12/16 16:30 Anaerobic Blood Culture Received Blood Peripheral Pending Result Diagram: 10/12/16 1630 10/12/16 1630 Assessment and Plan Problem List: (1) ESRD (end stage renal disease) on dialysis Plan: continue dialysis MWF. Orders entered. Monitor fluid and electrolytes. Avoid IVF. (2) Sepsis Plan: May have catheter related sepsis. Agree with antibiotics. May need removal and exchange of dialysis catheter. Await culture results. (3) Anemia Plan: Hemoglobin is acceptable. Epogen with dialysis. (4) HIV (human immunodeficiency virus infection) Plan: Continue HAART therapy. (5) Hypertension Plan: BP is low to low normal. Suspend Amlodipine and Lisinopril for the time being. Assessment and Plan Thanks for the consult. Diego Paige MD Oct 13, 2016 09:43
[2016-10-13] MEDS ORDERED: SODIUM CHLOR 0.9% 1000 ML INJ 1,000 ML IV PRN ×2 (10:04)
[2016-10-13] MEDS ORDERED: cloNIDine HCL 0.1 MG TAB PO PRN (10:15)
[2016-10-13] MEDS ORDERED: MANNITOL 12.5 GM/50 ML VIAL IV PRN (10:15)
[2016-10-13] MEDS ORDERED: NITROGLYCERIN 0.4 MG SL 25 TABS/BTL SL PRN (10:15)
[2016-10-13] MEDS ORDERED: ACETAMINOPHEN 325 MG TAB PO PRN (10:15)
[2016-10-13] MEDS ORDERED: ONDANSETRON HCL 4 MG/2 ML VIAL IV PRN (10:15)
[2016-10-13] MEDS ORDERED: SODIUM CHLORIDE 0.9% FLUSH 10 ML FLUSH IV FLUSH PRN (10:15)
[2016-10-13] MEDS ORDERED: ALBUMIN HUMAN 25% 25 GM/100 ML BAGP IV PRN (10:15)
[2016-10-13] MEDS ORDERED: GELATIN 12 MM/7 MM FOAM TOP PRN (10:15)
[2016-10-13] MEDS ORDERED: HEPARIN SODIUM - IV 10,000 UNITS/10 ML VIAL IVF PRN (10:15)
--- NOTE | 2016-10-13 11:59 | HHI.PR ---
Subjective Remarks Patient tachycardic overnight to 116. Hypotensive this morning to 93/52. Endorses subjective fever/chills this morning, since resolved. States she is feeling better than she did yesterday. Objective Vitals Vital Signs Date Time Temp Pulse Resp B/P Pulse Ox O2 Delivery O2 Flow Rate FiO2 10/13/16 08:01 99.0 92 17 103/59 96 10/13/16 05:03 99.6 102 16 93/52 100 10/13/16 05:03 Room Air 10/12/16 23:35 20 10/12/16 23:10 99.3 116 16 117/67 100 10/12/16 22:30 114 10/12/16 21:10 99.5 100 16 104/65 100 10/12/16 18:39 100.3 108 14 115/65 99 Room Air 10/12/16 17:00 101.4 102 16 122/75 99 Room Air 10/12/16 16:35 20 99 Room Air 10/12/16 15:59 101.6 116 17 115/66 98 I/O 10/12/16 10/12/16 10/12/16 10/13/16 10/13/16 10/13/16 07:00 15:00 23:00 07:00 15:00 23:00 Intake Total 407 ml Balance 407 ml Intake IV Total 407 ml Result Diagram: 10/12/16 1630 10/12/16 1630 Objective Remarks GENERAL: no acute distress. HEENT: PERRLA, EOMI. No scleral icterus or conjunctival pallor. No lid lag or facial droop. CARDIOVASCULAR: Regular rate and rhythm. No obvious murmurs to auscultation. No chest tenderness to palpation. Right chest HD Cath, no signs of infection RESPIRATORY: No obvious rhonchi or wheezing. Clear to auscultation. Breath sounds equal bilaterally. GASTROINTESTINAL: Abdomen soft, non-tender, nondistended. BS normal. MUSCULOSKELETAL: Extremities without clubbing, cyanosis, or edema. No obvious deformities. NEUROLOGICAL: Awake, alert and oriented x4. No focal neurologic deficits. Moving both upper and lower extremities spontaneously. A/P Problem List: (1) Sepsis ICD Code: A41.9 Status: Acute (2) HIV (human immunodeficiency virus infection) ICD Code: Z21 Status: Chronic (3) ESRD (end stage renal disease) on dialysis ICD Code: N18.6 Status: Acute (4) Thrombocytopenia ICD Code: D69.6 Status: Acute (5) HTN (hypertension) ICD Code: I10 Status: Acute Assessment and Plan 1. Sepsis: Remains tachycardic and hypotensive. +Immunocompromised, h/o HIV on HAART. +Right Chest HD Cath. S/p Blood Cultures positive for gram + cocci in pairs and clusters, Vanc/Cefepime in ER. Continue IV Abx - will need Vanc with dialysis, s/p IVF in ER, hold further IVF in light of ESRD. ID consulted, appreciate recommendations. 2. HIV: Undetectable. Currently on HAART, resume home medications. 3. ESRD on HD: M/W/F. Follows w/ Dr. Rangel. Last HD on Friday with no complications. Consult Nephrology to resume HD. 4. HTN: Holding BP meds 2/2 hypotension in setting of sepsis 5. Thrombocytopenia: Platelets 116, previously 153 on 09/08/16, no active bleeding. Monitor. Repeat labs in am. 6. DVT Prophylaxis: Heparin sq 7. Social work for d/c planning as needed. Arlene Smith MD R3 Oct 13, 2016 11:59
--- NOTE | 2016-10-13 15:43 | MB ---
cc: VALERIE RIGGINS MD DATE OF CONSULTATION: 10/13/2016. REASON FOR CONSULTATION: Positive blood cultures in an HIV positive patient with end-stage renal disease. The patient is on hemodialysis. REQUESTING PHYSICIAN: Dr. Smith. HISTORY OF PRESENT ILLNESS: This is a 41-year-old black female who presented to the emergency department on 10/12 with fever. The patient also developed chills and sweats. She notes that this began on the day after she received hemodialysis two days ago. She also noted having pain in the left lateral chest wall area and also a dry cough. On presentation, she had temperature of 101.6 degrees and heart rate of 116. Chest x-ray was performed and did not show any evidence of pneumonia. The patient had blood cultures taken and she was started on antibiotics. Blood culture has gram-positive cocci in all four bottles obtained on 10/12. The patient currently is in no acute distress. She has itching of the skin. She notes that she had some vomiting earlier today, it was mostly bilious liquid. She states that she has not eaten any food in the past couple of days. The dialysis catheter has been present for six months. Prior to that, she had infection of her prior catheter which was removed and a new one inserted. PAST MEDICAL HISTORY: 1. End-stage renal disease. 2. HIV disease managed by the outpatient physician and the patient noted undetectable viral load. 3. Hypertension. 4. AV fistula for hemodialysis placed in August of 2016 (not yet ready for use). 5. Bilateral cataracts. ALLERGIES: IRON DEXTRAN. MEDICATIONS: 1. Lipitor. 2. Epivir. 3. Edurant. 4. Vancomycin intravenous with dialysis. 5. Aspirin. 6. Nephrocaps. 7. Valtrex. 8. Cefepime. 9. Cass-Colace. 10. Milk of magnesia. 11. Vancomycin 1 gram IV dose was given yesterday evening. SOCIAL HISTORY: No tobacco, no alcohol. No illicit drug FAMILY HISTORY: Noncontributory. REVIEW OF SYSTEMS: Positives include fever, chills and generalized weakness, nausea, decreased appetite and itching of the skin. Otherwise negative. PHYSICAL EXAMINATION: GENERAL: On physical exam, this is a well-developed slender female in no acute distress. She is awake and alert and oriented. VITAL SIGNS Include temperature 98.3, blood pressure 93/52, respirations 16, heart rate 88. HEAD, EYES, EARS, NOSE, THROAT: The head is atraumatic. Extraocular movements grossly intact, pupils reactive to light. No icterus. Oropharynx moist mucosa. No lesions. Dentition is fair. NECK: The neck is supple without adenopathy. No swelling. LUNGS: Clear breath sounds which are diminished at the left base. HEART: Regular S1 and S2 without murmurs, rubs or gallops. ABDOMEN: Bowel sounds present, soft, no tenderness appreciated. RECTAL: Not performed. EXTREMITIES: No clubbing, cyanosis or edema. SKIN: No rash. NEUROLOGIC: Nonfocal. PSYCHIATRIC: The patient is calm and cooperative. LABORATORY DATA: WBCs 16.5, platelets 116,000, hemoglobin 11.3, 15% bands, 76% neutrophils. Creatinine 9.77, BUN 53, sodium 131. IMPRESSION: 1. Sepsis in a patient with fever, tachycardia and positive blood cultures with gram-positive cocci in four bottles. The patient on hemodialysis and has vascular catheter being used for hemodialysis. 2. Catheter-related sepsis. 3. End-stage renal disease. 4. HIV disease, which appears stable on current HAART therapy. RECOMMENDATIONS: 1. Continue to give the vancomycin with dialysis. 2. Remove the current vascular catheter. 3. Placement of new vascular catheter prior to the next dialysis. 4. Monitor blood cultures. Thank you for this consultation. The patient's progress will be monitored and her cultures will be followed and further recommendations will be given upon follow up. Valerie Riggins MD FD/SHANNAN /2:22 PM /3:28 PM PB
[2016-10-13] MEDS: RILPIVIRINE 25 MG TAB PO SCH (20:11)
[2016-10-13] MEDS: DOLUTEGRAVIR SODIUM 50 MG TAB PO SCH (20:11)
[2016-10-13 21:51] LABS: AUTOMATED NEUTROPHIL # 10.8 TH/MM3 (1.8-7.7); BASOPHIL % 0.3 % (0.0-2.0); EOSINOPHIL # 0.7 TH/MM3 (0-0.4); EOSINOPHIL % 5.2 % (0.0-4.0); HEMATOCRIT 28.8 % (35.0-46.0); HEMO FLAGS DIFF FINAL; LYMPH % 6.8 % (9.0-44.0); LYMPHOCYTE # 0.9 TH/MM3 (1.0-4.8); MEAN CELL VOLUME 101.7 FL (80.0-100.0); MEAN CORPUSCULAR HEMOGLOBIN 33.6 PG (27.0-34.0); MONO % 7.5 % (0.0-8.0); NEUT % 80.2 % (16.0-70.0); PLATELET COUNT 143 TH/MM3 (150-450); RED BLOOD COUNT 2.83 MIL/MM3 (4.00-5.30); RED CELL DISTRIBUTION WIDTH 15.7 % (11.6-17.2); WHITE BLOOD COUNT 13.4 TH/MM3 (4.0-11.0)
[2016-10-13 22:12] LABS: ALKALINE PHOSPHATASE 169 U/L (45-117); ALT (GPT) 45 U/L (10-53); ANION GAP 17 MEQ/L (5-15); AST (GOT) 60 U/L (15-37); BICARBONATE 19.5 MEQ/L (21.0-32.0); BLOOD UREA NITROGEN 88 MG/DL (7-18); CHLORIDE 93 MEQ/L (98-107); GLOMERULAR FILTRATION RATE 4 ML/MIN (>89); POTASSIUM 5.3 MEQ/L (3.5-5.1); SODIUM (NA) 129 MEQ/L (136-145); TOTAL BILIRUBIN ADULT 1.9 MG/DL (0.2-1.0)
[2016-10-13] MEDS: diphenhydrAMINE HCL 25 MG CAP PO PRN (22:50)
[2016-10-14] VITALS (8 sets, daily range): BP systolic 101–129; BP diastolic 57–79; PULSE 84–111; RESP 16–20; TEMP 98.4–99.4; O2SAT 93–100
[2016-10-14] MEDS: MORPHINE SULFATE 4 MG/ML INJ IV PRN (06:22)
[2016-10-14] MEDS: CEFEPIME INJ 1,000 MG in SODIUM CHLORIDE 0.9% INJ 100 ML IV SCH (07:53)
[2016-10-14] MEDS: ASPIRIN EC 81 MG TABEC PO SCH (07:57)
[2016-10-14] MEDS: valACYclovir HCL 500 MG TAB PO SCH (07:57)
[2016-10-14] MEDS: VITAMIN B CMPLX/VITC/FOLIC AC CAP PO SCH (07:57)
[2016-10-14] MEDS: DOCUSATE SODIUM 50 MG/SENNA 8.6 MG TAB PO SCH ×2 (07:57→21:08)
[2016-10-14] MEDS: SODIUM CHLORIDE 0.9% FLUSH 10 ML FLUSH IV FLUSH SCH ×2 (07:58→22:46)
[2016-10-14] MEDS: HEPARIN SODIUM - SQ 10,000 UNITS/ML VIAL SQ SCH ×2 (07:58→21:11)
--- NOTE | 2016-10-14 10:50 | HHI.NPPN ---
Subjective Renal Failure: Chronic, End Stage Renal Disease Interval History Awaiting Permcath removal/vascath placement. Coag studies in progress. She has low grade fevers overnight. (Vero Ocampo) Review of Systems General Constitutional: Fever, Chills, Fatigue (Vero Ocampo) Objective Data Data 10/13/16 10/14/16 19:00 07:00 Intake Total 480 ml 724 ml Output Total 0 ml Balance 480 ml 724 ml Intake Oral 480 ml 720 ml IV Total 4 ml Output Urine Total 0 ml # Voids 0 1 # Bowel Movements 0 0 Vital Signs Date Time Temp Pulse Resp B/P Pulse Ox O2 Delivery O2 Flow Rate FiO2 10/14/16 08:00 99.0 90 18 112/63 99 10/14/16 08:00 Room Air 10/14/16 04:00 Room Air 10/14/16 04:00 98.6 87 18 101/62 98 10/14/16 00:00 98.4 84 17 101/57 97 10/14/16 00:00 Room Air 10/13/16 21:26 18 10/13/16 20:15 Room Air 10/13/16 20:00 99.2 93 17 109/62 98 10/13/16 20:00 94 10/13/16 17:41 99 21 10/13/16 16:01 99.1 90 18 101/56 99 10/13/16 16:00 Room Air 10/13/16 12:22 98.3 88 17 93/52 97 10/13/16 12:00 Room Air (Vero Ocampo) -: 10/13/16202310/13/162023 Imaging Last 72 hours Impressions Chest X-Ray 10/12/16 1618 Signed Impressions: Service Date/Time: Wednesday, October 12, 2016 16:14 - CONCLUSION: No evidence of acute cardiopulmonary disease. Chet Pang MD Tubes & Lines: Perma-Cath (Vero Ocampo) Physical Exam General Appearance: Well Developed, No Acute Distress, Comfortable (Vero Ocampo) Ears & Nose Ears & Nose Exam: Nasal Mucosa [place] (Vero Ocampo) Throat Throat Exam: Oral Mucosa [place] & Moist (Vero Ocampo) Neck Neck Exam: Neck Supple (Vero Ocampo) Pulmonary Resp Exam: Clear Bilaterally, Breath Sounds Equal (Vero Ocampo) Cardiology CV Exam: Regular, Normal Sinus Rhythm (Vero Ocampo) Gastrointestinal/Abdomen GI Exam: Soft, Non-Tender (Vero Ocampo) Musculoskeletal MS Exam: Joints Intact, Normal Gait, Normal Tone, Good Strength (Vero Ocampo) Integumentary Skin Exam: Clear, Warm, Dry, Intact (Vero Ocampo) Extremeties Extremities Exam: No Edema, Pedal Pulses Palpable (Vero Ocampo) Neurologic Neuro Exam: Alert, Awake, Oriented, Speech Clear, Moving All Extremities ( Vero Ocampo) Psychiatric Psych Exam: Appropriate Responses (Vero Ocampo) Assessment/Plan Discussed Condition With: Patient Assessment Summary: Anemia of CKD, End Stage Renal Disease Problem List: (1) ESRD (end stage renal disease) on dialysis Plan: continue dialysis MWF. She is due today Monitor fluid and electrolytes status renal panel has been ordered Avoid IVF. Gadolinium is contraindicated no dietary protein restriction required; supplement added for nutritional support (2) Sepsis Plan: suspected catheter related sepsis. She is to have catheter exchanged today once coagulation studies have resulted ID following, on vancomycin with HD and cefepime Await dinal culture results. (3) Anemia Plan: Hemoglobin is acceptable. continue Epogen with dialysis. (4) HIV (human immunodeficiency virus infection) Plan: Continue HAART therapy. (5) Hypertension Plan: BP is low to low normal. Antihypertensives have been temporarily Suspended; this includes Amlodipine and Lisinopril follow blood pressure, resume when appropriate with hold parameters (Vero Ocampo) Plan patient was seen and examined. Agree with above assessment and plan. (Diego Paige MD) Vero Ocampo Oct 14, 2016 10:50 Diego Paige MD Oct 15, 2016 12:18
[2016-10-14] MEDS ORDERED: MAGNESIUM HYDROXIDE SUSP 30 ML CUP PO ONE (11:00)
--- NOTE | 2016-10-14 11:04 | HHI.PR ---
Subjective Remarks Follow up for sepsis, bacteremia. The patient reports overall feeling much better compared to yesterday. She reports pain at the right upper chest and neck at site of vascath. She reports subjective fevers and sweats overnight. She reports nonproductive cough overnight but improved today. She also complains of diffuse pruritus secondary to dry skin, denies noticing any specific rash. Denies any headache, shortness of breath, abdominal pain, nausea /vomiting. She has not had a BM since Wednesday 10/11. She has been taking Cass- Colace in the hospital with no relief. Objective Vitals Vital Signs Date Time Temp Pulse Resp B/P Pulse Ox O2 Delivery O2 Flow Rate FiO2 10/14/16 08:00 99.0 90 18 112/63 99 10/14/16 08:00 Room Air 10/14/16 04:00 Room Air 10/14/16 04:00 98.6 87 18 101/62 98 10/14/16 00:00 98.4 84 17 101/57 97 10/14/16 00:00 Room Air 10/13/16 21:26 18 10/13/16 20:15 Room Air 10/13/16 20:00 99.2 93 17 109/62 98 10/13/16 20:00 94 10/13/16 17:41 99 21 10/13/16 16:01 99.1 90 18 101/56 99 10/13/16 16:00 Room Air 10/13/16 12:22 98.3 88 17 93/52 97 10/13/16 12:00 Room Air I/O 10/13/16 10/13/16 10/13/16 10/14/16 10/14/16 10/14/16 07:00 15:00 23:00 07:00 15:00 23:00 Intake Total 407 ml 480 ml 480 ml 244 ml Output Total 0 ml Balance 407 ml 480 ml 480 ml 244 ml Intake Oral 480 ml 480 ml 240 ml IV Total 407 ml 4 ml Output Urine Total 0 ml # Voids 0 1 # Bowel Movements 0 0 0 Result Diagram: 10/13/16202310/13/162023 Imaging Last Impressions Chest X-Ray 10/12/16 1618 Signed Impressions: Service Date/Time: Wednesday, October 12, 2016 16:14 - CONCLUSION: No evidence of acute cardiopulmonary disease. Chet Pang MD Objective Remarks GENERAL: Well-nourished, well-developed pleasant middle aged AA female patient in NAD. SKIN: Warm and dry. Diffuse dry eczematous skin throughout extremities. HEENT: Normocephalic. Atraumatic.Pupils equal and round. Mucous membranes pink and moist. NECK: Supple. Trachea midline. CARDIOVASCULAR: Regular rate and rhythm. S1, S2 noted. No murmur appreciated. Vas cath at right upper chest. RESPIRATORY: No accessory muscle use. Clear to auscultation. Breath sounds equal bilaterally. GASTROINTESTINAL: Abdomen soft, non-tender, mildly distended. Normoactive bowel sounds x4. MUSCULOSKELETAL: No obvious deformities. Extremities without clubbing, cyanosis , or edema. NEUROLOGICAL: Awake and alert. No obvious cranial nerve deficits. Motor grossly within normal limits. Normal speech. PSYCHIATRIC: Appropriate mood and affect; insight and judgment normal. Medications and IVs Current Medications Medications (Trade) Dose Ordered Sig/Chinmay Route Start Time Stop Time Status Last Admin (NS Flush) 2 ml UNSCH PRN IV FLUSH 10/12/16 19:30 (NS Flush) 2 ml BID IV FLUSH 10/12/16 21:00 10/14/16 07:58 (Zofran Inj) 4 mg Q6H PRN IVP 10/12/16 19:30 10/12/16 23:31 (Heparin Inj) 5,000 units Q12H SQ 10/13/16 09:00 10/14/16 07:58 (Tylenol) 650 mg Q6H PRN PO 10/12/16 19:30 ([place] 5-325 Mg) 1 tab Q4H PRN PO 10/12/16 19:30 10/13/16 20:10 (Morphine Inj) 2 mg Q3H PRN IV 10/12/16 19:30 10/14/16 06:22 (Cass-Colace) 1 tab BID PO 10/12/16 21:00 10/14/16 07:57 (Milk Of Magnesia Liq) 30 ml Q12H PRN PO 10/12/16 19:30 (Senokot) 17.2 mg Q12H PRN PO 10/12/16 19:30 (Dulcolax Supp) 10 mg DAILY PRN RECTAL 10/12/16 19:30 (Lactulose Liq) 30 ml DAILY PRN PO 10/12/16 19:30 (Norvasc) 10 mg DAILY PO 10/13/16 09:00 Hold (Ecotrin Ec) 81 mg DAILY PO 10/13/16 09:00 10/14/16 07:57 (Lipitor) 10 mg MOWEFR PO 10/14/16 20:00 (Nephrocaps) 1 cap DAILY PO 10/13/16 09:00 10/14/16 07:57 (Trandate) 300 mg TID PO 10/13/16 09:00 Hold (Prinivil) 20 mg BID PO 10/12/16 21:00 Hold Valacyclovir HCl 1000 mg 1,000 mg DAILY PO 10/13/16 09:00 10/14/16 07:57 Cefepime HCl 1000 mg/Sodium Chloride 100 ml @ 200 mls/hr Q24H IV 10/13/16 09:00 10/14/16 07:53 (NS 1000 ml Inj) 1,000 ml @ 0 mls/hr Q0M PRN IV 10/13/16 10:04 Heparin Sodium (Porcine) 8000 units 8,000 units UNSCH PRN IVF 10/13/16 10:15 Sodium Chloride 1,000 ml @ 200 mls/hr Q5H PRN IV 10/13/16 10:04 (NS 1000 ml Inj) 1,000 ml @ 0 mls/hr Q0M PRN IV 10/13/16 10:04 (Mannitol Inj) 12.5 gm UNSCH PRN IV 10/13/16 10:15 (Albumin 25% Inj) 25 gm UNSCH PRN IV 10/13/16 10:15 (NS Flush) 5 ml UNSCH PRN IV FLUSH 10/13/16 10:15 (Heparin Inj) UNSCH PRN .XX 10/13/16 10:15 (Gentamicin (Dialysis) Inj) 20 mg UNSCH PRN IV 10/13/16 10:15 (Zofran Inj) 4 mg UNSCH PRN IV 10/13/16 10:15 (Tylenol) 650 mg UNSCH PRN PO 10/13/16 10:15 (Benadryl) 25 mg UNSCH PRN PO 10/13/16 10:15 10/13/16 22:50 (Nitrostat Sl) 0.4 mg UNSCH PRN SL 10/13/16 10:15 (Catapres) 0.1 mg UNSCH PRN PO 10/13/16 10:15 (Epogen Inj) 5,000 units UNSCH PRN IV 10/13/16 10:15 (Gelfoam 12 Mm/7 Mm Top) 1 foam UNSCH PRN TOP 10/13/16 10:15 (Epivir) 150 mg HS PO 10/13/16 21:00 10/13/16 20:11 (Edurant) 25 mg HS PO 10/13/16 21:00 10/13/16 20:11 A/P Problem List: (1) Sepsis ICD Code: A41.9 Status: Acute (2) HIV (human immunodeficiency virus infection) ICD Code: Z21 Status: Chronic (3) ESRD (end stage renal disease) on dialysis ICD Code: N18.6 Status: Acute (4) Thrombocytopenia ICD Code: D69.6 Status: Acute (5) HTN (hypertension) ICD Code: I10 Status: Acute Assessment and Plan 41-year-old female with a PMH of HTN, ESRD on HD M/W/ and HIV (CD4 35 on , HIV RNA undetectable) on HAART who presented to the ER w/ complaints of generalized malaise, fever and chills x3 days. Sepsis secondary to Catheter Associated Bacteremia with MRSA: Meets sepsis criteria with Tmax 101.6, tachycardia HR 116, source-bacteremia. + Immunocompromised, h/o HIV on HAART. +Right Chest HD Cath. -Given IVF for episodes of hypotension, however hold for now in light of ESRD. -Blood Cultures 10/12 positive for MRSA -Continue IV antibiotics with Cefepime and IV Vanco with dialysis -Consult infectious disease, appreciate recommendations -Need right chest Vas Cath replaced, IR consulted -Pain control with Calumet prn and IV morphine prn HIV: Undetectable. Currently on HAART, resume home medications. Continue outpatient f/up with ID. ESRD on HD: //. Follows w/ Dr. Rangel. Last HD on Friday with no complications. Consult Nephrology to resume HD. HTN: Holding BP meds secondary to hypotension in setting of sepsis. Restart meds if BP improves. Continue to monitor. Thrombocytopenia: Platelets 116, previously 153 on 09/08/16, no active bleeding. Monitor. Repeat labs show improvement, PLT 143K. DVT Prophylaxis: Heparin sq Discharge Planning Not yet ready for discharge. Pending further clinical improvement. Will likely need to arrange IV Vanco with dialysis as outpatient. Leigh Turner PA-C Oct 14, 2016 11:04 am
[2016-10-14 11:05] LABS: APTT (PATIENT) 43.9 SEC (24.3-30.1); PROTHROMBIN TIME - PATIENT 10.7 SEC (9.8-11.6)
--- NOTE | 2016-10-14 12:27 | HHI.IDPN ---
Note Infectious Disease Note Patient is about to go down for removal of the dialysis catheter. Continues to have itching of the skin. No chills. No vomiting. Blood culture identified as MRSA. PAST MEDICAL HISTORY: 1. End-stage renal disease. 2. HIV disease managed by the outpatient physician and the patient noted undetectable viral load. 3. Hypertension. 4. AV fistula for hemodialysis placed in August of 2016 (not yet ready for use). 5. Bilateral cataracts. ALLERGIES: IRON DEXTRAN. Current Medications Medications (Trade) Dose Ordered Sig/Chinmay Route PRN Reason Start Time Stop Time Status Last Admin Dose Admin Sodium Chloride (NS Flush) 2 ml UNSCH PRN IV FLUSH FLUSH AFTER USING IV ACCESS 10/12/16 19:30 Sodium Chloride (NS Flush) 2 ml BID IV FLUSH 10/12/16 21:00 10/14/16 07:58 Ondansetron HCl (Zofran Inj) 4 mg Q6H PRN IVP NAUSEA OR VOMITING 10/12/16 19:30 10/12/16 23:31 Heparin Sodium (Porcine) (Heparin Inj) 5,000 units Q12H SQ 10/13/16 09:00 10/14/16 07:58 Acetaminophen (Tylenol) 650 mg Q6H PRN PO FEVER/PAIN SCALE 1 TO 2 10/12/16 19:30 Acetaminophen/ Hydrocodone Bitart ([place] 5-325 Mg) 1 tab Q4H PRN PO PAIN SCALE 3 TO 5 10/12/16 19:30 10/13/16 20:10 Morphine Sulfate (Morphine Inj) 2 mg Q3H PRN IV breakthrough pain 10/12/16 19:30 10/14/16 06:22 Senna/Docusate Sodium (Cass-Colace) 1 tab BID PO 10/12/16 21:00 10/14/16 07:57 Magnesium Hydroxide (Milk Of Magnesia Liq) 30 ml Q12H PRN PO SEE LABEL COMMENTS 10/12/16 19:30 Sennosides (Senokot) 17.2 mg Q12H PRN PO SEE LABEL COMMENTS 10/12/16 19:30 Bisacodyl (Dulcolax Supp) 10 mg DAILY PRN RECTAL SEE 10/12/16 19:30 Lactulose (Lactulose Liq) 30 ml DAILY PRN PO SEE LABEL COMMENTS 10/12/16 19:30 Amlodipine Besylate (Norvasc) 10 mg DAILY PO 10/13/16 09:00 Hold Aspirin (Ecotrin Ec) 81 mg DAILY PO 10/13/16 09:00 10/14/16 07:57 Atorvastatin Calcium (Lipitor) 10 mg MOWEFR PO 10/14/16 20:00 Vitamin B Complex/ Vit C/Folic Acid (Nephrocaps) 1 cap DAILY PO 10/13/16 09:00 10/14/16 07:57 Labetalol HCl (Trandate) 300 mg TID PO 10/13/16 09:00 Hold Lisinopril (Prinivil) 20 mg BID PO 10/12/16 21:00 Hold Valacyclovir HCl 1000 mg 1,000 mg DAILY PO 10/13/16 09:00 10/14/16 07:57 Cefepime HCl 1000 mg/Sodium Chloride 100 ml @ 200 mls/hr Q24H IV 10/13/16 09:00 10/14/16 07:53 Sodium Chloride (NS 1000 ml Inj) 1,000 ml @ 0 mls/hr Q0M PRN IV For Prime & Rinse Back 10/13/16 10:04 Heparin Sodium (Porcine) 8000 units 8,000 units UNSCH PRN IVF WITH DIALYSIS 10/13/16 10:15 Sodium Chloride 1,000 ml @ 200 mls/hr Q5H PRN IV WITH DIALYSIS 10/13/16 10:04 Sodium Chloride (NS 1000 ml Inj) 1,000 ml @ 0 mls/hr Q0M PRN IV WITH DIALYSIS 10/13/16 10:04 Mannitol (Mannitol Inj) 12.5 gm UNSCH PRN IV WITH DIALYSIS 10/13/16 10:15 Albumin Human (Albumin 25% Inj) 25 gm UNSCH PRN IV WITH DIALYSIS 10/13/16 10:15 Sodium Chloride (NS Flush) 5 ml UNSCH PRN IV FLUSH WITH DIALYSIS 10/13/16 10:15 Heparin Sodium (Porcine) (Heparin Inj) UNSCH PRN .XX WITH DIALYSIS 10/13/16 10:15 Gentamicin Sulfate (Gentamicin (Dialysis) Inj) 20 mg UNSCH PRN IV WITH DIALYSIS 10/13/16 10:15 Ondansetron HCl (Zofran Inj) 4 mg UNSCH PRN IV WITH DIALYSIS 10/13/16 10:15 Acetaminophen (Tylenol) 650 mg UNSCH PRN PO for headach, pain, temp > 101F 10/13/16 10:15 Diphenhydramine HCl (Benadryl) 25 mg UNSCH PRN PO for hives/itching/anaphylaxis 10/13/16 10:15 10/13/16 22:50 Nitroglycerin (Nitrostat Sl) 0.4 mg UNSCH PRN SL CHEST PAIN 10/13/16 10:15 Clonidine (Catapres) 0.1 mg UNSCH PRN PO for BP > 180/100 X 2 readings 10/13/16 10:15 Epoetin Gilberto (Epogen Inj) 5,000 units UNSCH PRN IV WITH DIALYSIS 10/13/16 10:15 Gelatin (Gelfoam 12 Mm/7 Mm Top) 1 foam UNSCH PRN TOP SEE LABEL COMMENTS 10/13/16 10:15 Lamivudine (Epivir) 150 mg HS PO 10/13/16 21:00 10/13/16 20:11 Rilpivirine (Edurant) 25 mg HS PO 10/13/16 21:00 10/13/16 20:11 Lactic Acid (Lac-Hydrin 12% Lotion) 1 applic BID TOPICAL 10/14/16 12:00 Acetaminophen/ Hydrocodone Bitart ([place] 10-325 Mg) 1 tab Q4H PRN PO pain scale 6-10 10/14/16 11:00 OBJECTIVE: Vital Signs Date Time Temp Pulse Resp B/P Pulse Ox O2 Delivery O2 Flow Rate FiO2 10/14/16 08:00 99.0 90 18 112/63 99 10/14/16 08:00 Room Air 10/14/16 04:00 Room Air 10/14/16 04:00 98.6 87 18 101/62 98 10/14/16 00:00 98.4 84 17 101/57 97 10/14/16 00:00 Room Air 10/13/16 21:26 18 10/13/16 20:15 Room Air 10/13/16 20:00 99.2 93 17 109/62 98 10/13/16 20:00 94 10/13/16 17:41 99 21 10/13/16 16:01 99.1 90 18 101/56 99 10/13/16 16:00 Room Air Laboratory Tests Test 10/12/16 10/13/16 16:30 20:24 White Blood Count 16.5 TH/MM3 13.4 TH/MM3 Red Blood Count 3.31 MIL/MM3 2.83 MIL/MM3 Hemoglobin 11.3 GM/DL 9.5 GM/DL Hematocrit 33.6 % 28.8 % Mean Corpuscular Volume 101.5 FL 101.7 FL Mean Corpuscular Hemoglobin 34.1 PG 33.6 PG Mean Corpuscular Hemoglobin 33.6 % 33.0 % Concent Red Cell Distribution Width 15.6 % 15.7 % Platelet Count 116 TH/MM3 143 TH/MM3 Mean Platelet Volume 11.7 FL 11.4 FL Neutrophils (%) (Auto) 89.1 % 80.2 % Lymphocytes (%) (Auto) 3.9 % 6.8 % Monocytes (%) (Auto) 5.9 % 7.5 % Eosinophils (%) (Auto) 0.7 % 5.2 % Basophils (%) (Auto) 0.4 % 0.3 % Neutrophils # (Auto) 14.7 TH/MM3 10.8 TH/MM3 Lymphocytes # (Auto) 0.6 TH/MM3 0.9 TH/MM3 Monocytes # (Auto) 1.0 TH/MM3 1.0 TH/MM3 Eosinophils # (Auto) 0.1 TH/MM3 0.7 TH/MM3 Basophils # (Auto) 0.1 TH/MM3 0.0 TH/MM3 CBC Comment AUTO DIFF DIFF FINAL Differential Total Cells 100 Counted Neutrophils % (Manual) 76 % Band Neutrophils % 15 % Lymphocytes % 2 % Monocytes % 5 % Eosinophils % 2 % Neutrophils # (Manual) 15.0 TH/MM3 Differential Comment FINAL DIFF MANUAL Toxic Vacuolation PRESENT Platelet Estimate LOW Platelet Morphology Comment ENLARGED Keratocytes OCC Laboratory Tests Test 10/12/16 10/13/16 16:30 20:24 Sodium Level 131 MEQ/L 129 MEQ/L Potassium Level 4.8 MEQ/L 5.3 MEQ/L Chloride Level 92 MEQ/L 93 MEQ/L Carbon Dioxide Level 22.3 MEQ/L 19.5 MEQ/L Anion Gap 17 MEQ/L 17 MEQ/L Blood Urea Nitrogen 53 MG/DL 88 MG/DL Creatinine 9.77 MG/DL 11.84 MG/DL Estimat Glomerular Filtration 5 ML/MIN 4 ML/MIN Rate Random Glucose 84 MG/DL 95 MG/DL Lactic Acid Level 1.2 mmol/L Calcium Level 8.9 MG/DL 7.7 MG/DL Magnesium Level 1.6 MG/DL Total Bilirubin 1.5 MG/DL 1.9 MG/DL Aspartate Amino Transf 46 U/L 60 U/L (AST/SGOT) Alanine Aminotransferase 45 U/L 45 U/L (ALT/SGPT) Alkaline Phosphatase 158 U/L 169 U/L Troponin I LESS THAN 0.02 NG/ML Total Protein 9.5 GM/DL 8.1 GM/DL Albumin 2.9 GM/DL 2.5 GM/DL Microbiology Date/Time Procedure Status Source Growth 10/12/16 16:20 Aerobic Blood Culture - Preliminary Resulted Blood Peripheral S. Aureus Mrsa Group D Enterococcus 10/12/16 16:20 Anaerobic Blood Culture - Preliminary Resulted S. Aureus Mrsa 10/12/16 16:30 Aerobic Blood Culture - Preliminary Resulted Blood Peripheral S. Aureus Mrsa 10/12/16 16:30 Anaerobic Blood Culture - Preliminary Resulted S. Aureus Mrsa Group D Enterococcus 10/12/16 17:35 Influenza Types A,B Antigen (JAELYN) - Final Complete Nasal Washing NEGATIVE FOR FLU A AND B ANTIGEN.... PHYSICAL EXAMINATION: GENERAL: No acute distress. She is awake and alert and oriented. HEAD, EYES, EARS, NOSE, THROAT: Pupils reactive to light. No icterus. Oropharynx moist mucosa. No lesions. NECK: Supple without adenopathy. No swelling. LUNGS: Clear breath sounds. HEART: Regular S1 and S2 without murmurs, rubs or gallops. ABDOMEN: Bowel sounds present, soft, no tenderness appreciated. EXTREMITIES: No clubbing, cyanosis or edema. SKIN: No rash. NEUROLOGIC: Nonfocal. PSYCHIATRIC: Calm and cooperative. IMPRESSION: 1. Sepsis due to MRSA. 2. Catheter-related sepsis. 3. End-stage renal disease. 4. HIV disease, which appears stable on current HAART therapy. RECOMMENDATIONS: 1. Continue to give the vancomycin with dialysis. 2. Dialysis catheter removal. 3. D/C cefepime. Could be causing the itching. 4. Monitor clinical status. Red Gayle MD Oct 14, 2016 12:27
[2016-10-14] MEDS ORDERED: HEPARIN SODIUM - IV 2,000 UNITS/2 ML VIAL IV FLUSH PRN (14:15)
[2016-10-14] MEDS ORDERED: SODIUM CHLORIDE 0.9% FLUSH 10 ML FLUSH IVF PRN (14:15)
--- NOTE | 2016-10-14 14:15 | PD.RAD ---
Post Procedure Progress Note Pre Procedure Diagnosis: (1) ESRD (end stage renal disease) on dialysis (2) Sepsis Post Procedure Diagnosis: (1) ESRD (end stage renal disease) on dialysis (2) Sepsis Procedure Date: Oct 14, 2016 Supervising Radiologist: Mason Moore Proceduralist/Assist: Leigh Carlton, RT(R), Stu Hernandez RT(R)() Anesthesia: Local Plan of Activity Patient to Unit: Nursing Unit Patient Condition: Good See PACS Report for procedural detail/treatment Central Venous Access Device Procedure 1 Right Internal Jugular Hemodialysis Catheter Tunneled Removal dual lumen Croatian: 14 Procedure 2 Right Internal Jugular Hemodialysis Catheter Non-Tunneled Placement dual lumen Croatian: 14 Mason Moore MD Oct 14, 2016 14:15
[2016-10-14] MEDS: VANCOMYCIN INJ 1,000 MG in SODIUM CHLOR 0.9% 250 ML INJ 250 ML IV SCH (16:50)
[2016-10-14] MEDS: HEPARIN SODIUM - IV 10,000 UNITS/10 ML VIAL PRN (16:51)
[2016-10-14] MEDS: EPOETIN ALFA 10,000 UNITS/ML VIAL IV PRN (16:51)
[2016-10-14] MEDS: SODIUM CHLOR 0.9% 1000 ML INJ 1,000 ML IV PRN (16:51)
[2016-10-14] MEDS: GENTAMICIN SULFATE (DIALYSIS USE ONLY) 20 MG/2 ML VIAL IV PRN (16:51)
[2016-10-14] MEDS: LACTIC ACID (AMMONIUM LACTATE) 12% LOTION 225 GM BTL TOPICAL SCH (21:00)
[2016-10-14] MEDS: DOLUTEGRAVIR SODIUM 50 MG TAB PO SCH (21:07)
[2016-10-14] MEDS: ATORVASTATIN 10 MG TAB PO SCH (21:08)
[2016-10-14] MEDS: RILPIVIRINE 25 MG TAB PO SCH (21:08)
[2016-10-14] MEDS: ACETAMINOPHEN/HYDROcodone 325 MG/10 MG TAB PO PRN (22:46)
[2016-10-15 05:50] VITALS: BP 108/65; PULSE 87; RESP 16; TEMP 97.8; O2SAT 98
[2016-10-15] MEDS: diphenhydrAMINE HCL 25 MG CAP PO PRN (06:08)
[2016-10-15 07:25] LABS: AUTOMATED NEUTROPHIL # 5.7 TH/MM3 (1.8-7.7); BASOPHIL % 0.5 % (0.0-2.0); EOSINOPHIL # 0.7 TH/MM3 (0-0.4); EOSINOPHIL % 8.3 % (0.0-4.0); HEMO FLAGS DIFF FINAL; LYMPH % 14.1 % (9.0-44.0); LYMPHOCYTE # 1.3 TH/MM3 (1.0-4.8); MEAN CELL VOLUME 100.6 FL (80.0-100.0); MEAN CORPUSCULAR HEMOGLOBIN 34.2 PG (27.0-34.0); MEAN CORPUSCULAR HGB CONC 33.9 % (32.0-36.0); MONO % 13.5 % (0.0-8.0); NEUT % 63.6 % (16.0-70.0); PLATELET COUNT 151 TH/MM3 (150-450); RED BLOOD COUNT 2.78 MIL/MM3 (4.00-5.30); RED CELL DISTRIBUTION WIDTH 15.9 % (11.6-17.2); WHITE BLOOD COUNT 8.9 TH/MM3 (4.0-11.0)
[2016-10-15 07:48] LABS: BICARBONATE 29.2 MEQ/L (21.0-32.0); POTASSIUM 4.6 MEQ/L (3.5-5.1)
[2016-10-15 08:00] VITALS: BP 109/61; PULSE 90; RESP 18; TEMP 98.2; O2SAT 97
[2016-10-15] MEDS: ASPIRIN EC 81 MG TABEC PO SCH (09:07)
[2016-10-15] MEDS: VITAMIN B CMPLX/VITC/FOLIC AC CAP PO SCH (09:07)
[2016-10-15] MEDS: DOCUSATE SODIUM 50 MG/SENNA 8.6 MG TAB PO SCH ×2 (09:07→22:45)
[2016-10-15] MEDS: valACYclovir HCL 500 MG TAB PO SCH (09:07)
[2016-10-15] MEDS: SODIUM CHLORIDE 0.9% FLUSH 10 ML FLUSH IV FLUSH SCH ×2 (09:08→22:50)
[2016-10-15] MEDS: HEPARIN SODIUM - SQ 10,000 UNITS/ML VIAL SQ SCH ×2 (09:08→22:45)
[2016-10-15] MEDS: LACTIC ACID (AMMONIUM LACTATE) 12% LOTION 225 GM BTL TOPICAL SCH ×2 (09:08→22:47)
--- NOTE | 2016-10-15 09:29 | RADRPT ---
EXAM DATE/TIME: 10/14/2016 00:00 [facility] COMPARISON: No previous studies available for comparison. INDICATIONS : Patient with history of end stage renal disease in need of permcath removal. MEDICAL HISTORY : HTN ESRD HIV SURGICAL HISTORY : Vas-Cath AV Fistula Bilateral Cataracts ENCOUNTER: Initial ACUITY: > 1 year PAIN SCORE: 0/10 IMAGE SERIES: None TECH NOTE: Permcath catheter tip sent to laboratory.ROXANNE ALVARADO MR#:[id number] Exam Dt/Desc: A ugust 2016CENTRAL VENOUS CATHETER REMOVAL, TUNNELED RIGHT PROCEDURE : 1. PermaCath removal. The risks, benefits and alternatives to the procedure were explained and verbal and written consent w as obtained. The site was prepped in sterile fashion. Full sterile technique was used, including ca p, mask, sterile gloves and gown and a large sterile sheet. Hand hygiene and 2% chlorhexidine and/or betadine/alcohol prep was utilized per protocol for cutaneous antisepsis. The skin and subcutaneous tissues were infiltrated with local anesthetic solution. The tract was anesthetized with 1% Lidocaine using. The Permcath was dissected from the subcutaneous tissues and easily removed in one piece. Manual pressure was applied to the venotomy site until hem ostasis was obtained. Sterile dressing was applied. The patient tolerated the procedure well and there were no complications. CONCLUSION: Uncomplicated Permcath removal. Mason Moore MD on October 15, 2016 at 9:27 Board Certified Radiologist. This report was verified electronically.
--- NOTE | 2016-10-15 09:30 | RADRPT ---
EXAM DATE/TIME: 10/14/2016 13:51 [facility] COMPARISON: No previous studies available for comparison. INDICATIONS : Patient with history of end stage renal disease in need of vascath placemnet for dialysis. MEDICAL HISTORY : HTN ESRD HIV SURGICAL HISTORY : Vas-Cath AV Fistula Bilateral Cataracts ENCOUNTER: Initial ACUITY: > 1 year PAIN SCORE: 0/10 FLUORO TIME: minutes IMAGE SERIES: ACCESS: Right internal jugular vein MEDICATION(S): 1.) 2200 units Heparin IV DEVICE(S): 1.) 14 Mong[place]ian dual lumen 15 cm Schon catheter PROCEDURE : 1. Ultrasound guided venipuncture. 2. Fluoroscopic guidance. 3. Central line placement. The risks, benefits and alternatives to the procedure were explained and verbal and written consent w as obtained. The site was prepped in sterile fashion. Full sterile technique was used, including ca p, mask, sterile gloves and gown and a large sterile sheet. Hand hygiene and 2% chlorhexidine prep w as utilized per protocol for cutaneous antisepsis with appropriate dry time for site. The skin and subcutaneous tissues were infiltrated with local anesthetic solution. A suitable site a nelida the vein was selected with ultrasound and fluoroscopic guidance. A small incision was made. Th e vein was accessed under direct ultrasound visualization using the micropuncture technique. The chastity ropuncture set was exchanged for a 0.035 wire. The tract was dilated. The catheter was advanced int o position under direct fluoroscopic visualization. The catheter was fixed in place with suture and a sterile dressing was applied. The patient tolerated the procedure well and there were no complications. CONCLUSION: Uncomplicated line placement as above. Mason Moore MD on October 15, 2016 at 9:28 Board Certified Radiologist. This report was verified electronically.
--- NOTE | 2016-10-15 11:10 | HHI.NPPN ---
Subjective Renal Failure: Chronic, End Stage Renal Disease Interval History Successful catheter exchange yesterday. Dialysis went well. (Vero Ocampo) Review of Systems General Constitutional: Fever, Chills, Fatigue (Vero Ocampo) Objective Data Data 10/14/16 10/15/16 19:00 07:00 Intake Total 960 ml Output Total 3000 ml 0 ml Balance -3000 ml 960 ml Intake Oral 960 ml Output Urine Total 0 ml Hemodialysis 3000 ml # Bowel Movements 0 Vital Signs Date Time Temp Pulse Resp B/P Pulse Ox O2 Delivery O2 Flow Rate FiO2 10/15/16 08:00 98.2 90 18 109/61 97 10/15/16 07:00 Room Air 10/15/16 05:50 97.8 87 16 108/65 98 10/14/16 23:40 99.4 98 16 107/60 100 10/14/16 23:40 Room Air 10/14/16 21:46 99.2 111 16 129/79 97 10/14/16 21:46 Room Air 10/14/16 21:00 Room Air 10/14/16 20:26 100 10/14/16 12:00 98.6 95 20 119/72 93 (Vero Ocampo) -: 10/15/16 0642 10/15/16 0642 Microbiology 10/14/16 Wound Culture, Received Pending Imaging Last 72 hours Impressions Catheter Placement X-Ray 10/14/16 1029 Signed Impressions: Service Date/Time: Friday, October 14, 2016 13:51 - CONCLUSION: Uncomplicated line placement as above. Mason Moore MD Central Venous Line 10/14/16 0000 Signed Impressions: Service Date/Time: Friday, October 14, 2016 00:00 - CONCLUSION: Uncomplicated Permcath removal. Mason Moore MD Chest X-Ray 10/12/16 1618 Signed Impressions: Service Date/Time: Wednesday, October 12, 2016 16:14 - CONCLUSION: No evidence of acute cardiopulmonary disease. Chet Pang MD Tubes & Lines: Perma-Cath (Vero Ocampo) Physical Exam General Appearance: Well Developed, No Acute Distress, Comfortable (Vero Ocampo) Ears & Nose Ears & Nose Exam: Nasal Mucosa [place] (Vero OcampoP) Throat Throat Exam: Oral Mucosa [place] & Moist (Vero Ocampo) Neck Neck Exam: Neck Supple (Vero Ocampo) Pulmonary Resp Exam: Clear Bilaterally, Breath Sounds Equal (Vero Ocampo) Cardiology CV Exam: Regular, Normal Sinus Rhythm (Vero Ocampo) Gastrointestinal/Abdomen GI Exam: Soft, Non-Tender (Vero Ocampo) Musculoskeletal MS Exam: Joints Intact, Normal Gait, Normal Tone, Good Strength (Vero Ocampo) Integumentary Skin Exam: Clear, Warm, Dry, Intact (Vero Ocampo) Extremeties Extremities Exam: No Edema, Pedal Pulses Palpable (Vero Ocampo) Neurologic Neuro Exam: Alert, Awake, Oriented, Speech Clear, Moving All Extremities ( Vero Ocampo) Psychiatric Psych Exam: Appropriate Responses (Vero Ocampo) Assessment/Plan Discussed Condition With: Patient Assessment Summary: Anemia of CKD, End Stage Renal Disease Problem List: (1) ESRD (end stage renal disease) on dialysis Plan: continue dialysis MWF. 3L UF yesterday Monitor fluid and electrolytes status vascath placed left IJ yesterday, functions well has immature AVF in left arm Avoid IVF. Gadolinium is contraindicated no dietary protein restriction required; supplement added for nutritional support check phosphorus level, start binder therapy if needed (2) Sepsis Plan: suspected catheter related sepsis. permcath removed yesterday ID following, on vancomycin with HD cefepime stopped due to itching Await final culture results. (3) Anemia Plan: Hemoglobin is acceptable. continue Epogen with dialysis. (4) HIV (human immunodeficiency virus infection) Plan: Continue HAART therapy. (5) Hypertension Plan: BP is low to low normal. Antihypertensives have been temporarily Suspended; this includes Amlodipine and Lisinopril follow blood pressure, resume when appropriate with hold parameters (Vero Ocampo) Problem List: (1) ESRD (end stage renal disease) on dialysis Plan: continue dialysis MWF. 3L UF yesterday Monitor fluid and electrolytes status vascath placed left IJ yesterday, functions well has immature AVF in left arm Avoid IVF. Gadolinium is contraindicated no dietary protein restriction required; supplement added for nutritional support check phosphorus level, start binder therapy if needed (2) Sepsis Plan: suspected catheter related sepsis. permcath removed yesterday ID following, on vancomycin with HD cefepime stopped due to itching Await final culture results. (3) Anemia Plan: Hemoglobin is acceptable. continue Epogen with dialysis. (4) HIV (human immunodeficiency virus infection) Plan: Continue HAART therapy. (5) Hypertension Plan: BP is low to low normal. Antihypertensives have been temporarily Suspended; this includes Amlodipine and Lisinopril follow blood pressure, resume when appropriate with hold parameters Plan patient was seen and examined. Agree with above assessment and plan. (Diego Paige MD) Vero Ocampo [employer] Oct 15, 2016 11:10 Diego Paige MD Oct 15, 2016 12:19
[2016-10-15 12:00] VITALS: BP 126/80; PULSE 89; RESP 20; TEMP 98.2; O2SAT 96
--- NOTE | 2016-10-15 14:00 | HHI.PR ---
Subjective Remarks Follow up visit sepsis, bacteremia catheter associated, end-stage renal disease on hemodialysis. Patient seen and examined today. Reports her catheter has been changed and is doing fine. States that she is doing well. Reports constipation. Denies pain and discomfort. Denies SOB/ dyspnea. Denies chest pain, palpitations, headaches, dizziness. Denies fevers, chills, n/v/d. Objective Vitals Vital Signs Date Time Temp Pulse Resp B/P Pulse Ox O2 Delivery O2 Flow Rate FiO2 10/15/16 08:00 98.2 90 18 109/61 97 10/15/16 07:00 Room Air 10/15/16 05:50 97.8 87 16 108/65 98 10/14/16 23:40 99.4 98 16 107/60 100 10/14/16 23:40 Room Air 10/14/16 21:46 99.2 111 16 129/79 97 10/14/16 21:46 Room Air 10/14/16 21:00 Room Air 10/14/16 20:26 100 I/O 10/14/16 10/14/16 10/14/16 10/15/16 10/15/16 10/15/16 07:00 15:00 23:00 07:00 15:00 23:00 Intake Total 244 ml 480 ml 480 ml Output Total 3000 ml 0 ml 0 ml Balance 244 ml -2520 ml 480 ml 0 ml Intake Oral 240 ml 480 ml 480 ml IV Total 4 ml Output Urine Total 0 ml 0 ml 0 ml Hemodialysis 3000 ml # Voids 1 # Bowel Movements 0 0 0 0 Result Diagram: 10/15/16 0642 10/15/16 0642 Imaging Last Impressions Catheter Placement X-Ray 10/14/16 1029 Signed Impressions: Service Date/Time: Friday, October 14, 2016 13:51 - CONCLUSION: Uncomplicated line placement as above. Mason Moore MD Central Venous Line 10/14/16 0000 Signed Impressions: Service Date/Time: Friday, October 14, 2016 00:00 - CONCLUSION: Uncomplicated Permcath removal. Mason Moore MD Chest X-Ray 10/12/16 1618 Signed Impressions: Service Date/Time: Wednesday, October 12, 2016 16:14 - CONCLUSION: No evidence of acute cardiopulmonary disease. Chet Pang MD Objective Remarks GENERAL: This is a thinly appearing, well-developed patient, in no apparent distress. SKIN: Warm and dry. HEENT: Normocephalic. Pupils equal round and reactive. Nose without bleeding. Airway patent. NECK: Trachea midline. No JVD. Supple. Vascular catheter in the right IJ. CARDIOVASCULAR: Regular rate and rhythm without murmurs, gallops, or rubs. RESPIRATORY: Clear to auscultation. Breath sounds equal bilaterally. No wheezes , rales, or rhonchi. GASTROINTESTINAL: Abdomen soft, non-tender, nondistended. Bowel Sounds hypoactive. MUSCULOSKELETAL: Extremities without clubbing, cyanosis, or edema. NEUROLOGICAL: Awake and alert. No focal neuro deficit. Moves all extremities. Normal speech. A/P Problem List: (1) Sepsis ICD Code: A41.9 Status: Acute (2) HIV (human immunodeficiency virus infection) ICD Code: Z21 Status: Chronic (3) ESRD (end stage renal disease) on dialysis ICD Code: N18.6 Status: Acute (4) Thrombocytopenia ICD Code: D69.6 Status: Acute (5) HTN (hypertension) ICD Code: I10 Status: Acute Assessment and Plan Patient is a 41-year-old female with a PMH of HTN, ESRD on HD M/W/ and HIV ( CD4 35 on 06/24/13, HIV RNA undetectable) on HAART who presented to the ER w/ complaints of generalized malaise, fever and chills x3 days. Sepsis secondary to Catheter Associated Bacteremia with MRSA: Meets sepsis criteria with Tmax 101.6, tachycardia HR 116, source-bacteremia. + Immunocompromised, h/o HIV on HAART. +Right Chest HD Cath. - Given IVF for episodes of hypotension, however hold for now in light of ESRD. - Blood Cultures 10/12 positive for MRSA - Continue IV Vanco with dialysis. Cefepime discontinued secondary to pruritus. - Consult infectious disease, appreciate recommendations - Pain control with Ulen prn and IV morphine prn - Successful vas catheter placement 10/14/16 - Catheter tip culture MRSA - Improved leukocytosis WBC 8.9 HIV: Undetectable. Currently on HAART, resume home medications. Continue outpatient f/up with ID. ESRD on HD: M/W/F. Follows w/ Dr. Rangel. Last HD on Friday with no complications. - Nephrology following to resume HD. - AV fistula placed in August 2016. Not yet ready for use. HTN: Holding BP meds secondary to hypotension in setting of sepsis. - Restart meds if BP improves. - Continue to monitor. Thrombocytopenia: Platelets 116, previously 153 on 09/08/16, no active bleeding. - Monitor. Repeat labs show improvement, PLT 143K. Anemia, macrocytic - Possibly related to chronic disease, end-stage renal disease. - Monitor trend Constipation - Miralax daily - MOM PRN DVT Prophylaxis: Heparin sq Full code. Discussed with patient, nursing, Dr. Fermin Discharge Planning Plan for discharge tomorrow or the next day pending ID approval and recommendation as to management of bacteremia. We will need to arrange IV vancomycin with dialysis as an outpatient. Krishan Guerra [facility] Oct 15, 2016 13:59
[2016-10-15] MEDS: POLYETHYLENE GLYCOL 17 GM PKG PO SCH (15:30)
[2016-10-15 16:00] VITALS: BP 125/67; PULSE 94; RESP 18; TEMP 99.9; O2SAT 98
[2016-10-15 20:00] VITALS: BP 134/81; PULSE 95; RESP 16; TEMP 99.1; O2SAT 100
[2016-10-15 20:08] VITALS: PULSE 90
[2016-10-15] MEDS: RILPIVIRINE 25 MG TAB PO SCH (22:45)
[2016-10-15] MEDS: DOLUTEGRAVIR SODIUM 50 MG TAB PO SCH (22:45)
[2016-10-15] MEDS: ACETAMINOPHEN/HYDROcodone 325 MG/10 MG TAB PO PRN (22:46)
[2016-10-16] VITALS (7 sets, daily range): BP systolic 116–137; BP diastolic 68–92; PULSE 84–104; RESP 16–18; TEMP 98.3–102; O2SAT 96–99
--- NOTE | 2016-10-16 08:51 | HHI.PR ---
Subjective Remarks The patient was resting comfortably in bed. She said she would like to use an incentive spirometer. She says she was constipated. She said she has some pain at the catheter site. She also mentions some back pain. Discussed with nursing. Objective Vitals Vital Signs Date Time Temp Pulse Resp B/P Pulse Ox O2 Delivery O2 Flow Rate FiO2 10/16/16 04:00 99.0 87 16 137/92 98 10/16/16 00:00 Room Air 10/16/16 00:00 98.3 88 16 125/69 98 10/15/16 20:08 90 10/15/16 20:00 99.1 95 16 134/81 100 10/15/16 20:00 Room Air 10/15/16 16:00 99.9 94 18 125/67 98 10/15/16 12:00 98.2 89 20 126/80 96 I/O 10/15/16 10/15/16 10/15/16 10/16/16 10/16/16 10/16/16 06:59 14:59 22:59 06:59 14:59 22:59 Intake Total 480 ml 480 ml 240 ml 240 ml Output Total 0 ml 0 ml 0 ml Balance 480 ml 480 ml 240 ml 240 ml Intake Oral 480 ml 480 ml 240 ml 240 ml Output Urine Total 0 ml 0 ml 0 ml # Voids 0 # Bowel Movements 0 0 0 0 Result Diagram: 10/15/16 0642 10/15/16 0642 Imaging Last Impressions Catheter Placement X-Ray 10/14/16 1029 Signed Impressions: Service Date/Time: Friday, October 14, 2016 13:51 - CONCLUSION: Uncomplicated line placement as above. Mason Moore MD Central Venous Line 10/14/16 0000 Signed Impressions: Service Date/Time: Friday, October 14, 2016 00:00 - CONCLUSION: Uncomplicated Permcath removal. Mason Moore MD Chest X-Ray 10/12/16 1618 Signed Impressions: Service Date/Time: Wednesday, October 12, 2016 16:14 - CONCLUSION: No evidence of acute cardiopulmonary disease. Chet Pang MD Objective Remarks GENERAL: This is a thinly appearing, well-developed patient, in no apparent distress. SKIN: Warm and dry. HEENT: Normocephalic. Pupils equal round and reactive. Nose without bleeding. Airway patent. NECK: Trachea midline. No JVD. Supple. Vascular catheter in the right IJ. CARDIOVASCULAR: Regular rate and rhythm without murmurs, gallops, or rubs. RESPIRATORY: Clear to auscultation. Breath sounds equal bilaterally. No wheezes , rales, or rhonchi. GASTROINTESTINAL: Abdomen soft, non-tender, nondistended. Bowel Sounds hypoactive. MUSCULOSKELETAL: Extremities without clubbing, cyanosis, or edema. NEUROLOGICAL: Awake and alert. No focal neuro deficit. Moves all extremities. Normal speech. PSYCH: Mood and affect appropriate. Medications and IVs Current Medications Medications (Trade) Dose Ordered Sig/Chinmay Route Start Time Stop Time Status Last Admin (NS Flush) 2 ml UNSCH PRN IV FLUSH 10/12/16 19:30 (NS Flush) 2 ml BID IV FLUSH 10/12/16 21:00 10/15/16 22:50 (Zofran Inj) 4 mg Q6H PRN IVP 10/12/16 19:30 10/12/16 23:31 (Heparin Inj) 5,000 units Q12H SQ 10/13/16 09:00 10/15/16 22:45 (Tylenol) 650 mg Q6H PRN PO 10/12/16 19:30 ([place]enix 5-325 Mg) 1 tab Q4H PRN PO 10/12/16 19:30 10/13/16 20:10 (Morphine Inj) 2 mg Q3H PRN IV 10/12/16 19:30 10/14/16 06:22 (Cass-Colace) 1 tab BID PO 10/12/16 21:00 10/15/16 22:45 (Milk Of Magnesia Liq) 30 ml Q12H PRN PO 10/12/16 19:30 10/14/16 21:08 (Senokot) 17.2 mg Q12H PRN PO 10/12/16 19:30 (Dulcolax Supp) 10 mg DAILY PRN RECTAL 10/12/16 19:30 (Lactulose Liq) 30 ml DAILY PRN PO 10/12/16 19:30 (Norvasc) 10 mg DAILY PO 10/13/16 09:00 Hold (Ecotrin Ec) 81 mg DAILY PO 10/13/16 09:00 10/15/16 09:07 (Lipitor) 10 mg MOWEFR PO 10/14/16 20:00 10/14/16 21:08 (Nephrocaps) 1 cap DAILY PO 10/13/16 09:00 10/15/16 09:07 (Trandate) 300 mg TID PO 10/13/16 09:00 Hold (Prinivil) 20 mg BID PO 10/12/16 21:00 Hold Valacyclovir HCl 1000 mg 1,000 mg DAILY PO 10/13/16 09:00 10/15/16 09:07 (NS 1000 ml Inj) 1,000 ml @ 0 mls/hr Q0M PRN IV 10/13/16 10:04 10/14/16 16:51 Heparin Sodium (Porcine) 8000 units 8,000 units UNSCH PRN IVF 10/13/16 10:15 Sodium Chloride 1,000 ml @ 200 mls/hr Q5H PRN IV 10/13/16 10:04 (NS 1000 ml Inj) 1,000 ml @ 0 mls/hr Q0M PRN IV 10/13/16 10:04 (Mannitol Inj) 12.5 gm UNSCH PRN IV 10/13/16 10:15 (Albumin 25% Inj) 25 gm UNSCH PRN IV 10/13/16 10:15 (NS Flush) 5 ml UNSCH PRN IV FLUSH 10/13/16 10:15 (Heparin Inj) UNSCH PRN .XX 10/13/16 10:15 10/14/16 16:51 (Gentamicin (Dialysis) Inj) 20 mg UNSCH PRN IV 10/13/16 10:15 10/14/16 16:51 (Zofran Inj) 4 mg UNSCH PRN IV 10/13/16 10:15 (Tylenol) 650 mg UNSCH PRN PO 10/13/16 10:15 (Benadryl) 25 mg UNSCH PRN PO 10/13/16 10:15 10/15/16 06:08 (Nitrostat Sl) 0.4 mg UNSCH PRN SL 10/13/16 10:15 (Catapres) 0.1 mg UNSCH PRN PO 10/13/16 10:15 (Epogen Inj) 5,000 units UNSCH PRN IV 10/13/16 10:15 10/14/16 16:51 (Gelfoam 12 Mm/7 Mm Top) 1 foam UNSCH PRN TOP 10/13/16 10:15 (Epivir) 150 mg HS PO 10/13/16 21:00 10/15/16 22:45 (Edurant) 25 mg HS PO 10/13/16 21:00 10/15/16 22:45 (Lac-Hydrin 12% Lotion) 1 applic BID TOPICAL 10/14/16 12:00 10/15/16 22:47 (P[place]enix 10-325 Mg) 1 tab Q4H PRN PO 10/14/16 11:00 10/15/16 22:46 (NS Flush) UNSCH PRN IVF 10/14/16 14:15 (Heparin Inj) UNSCH PRN IV FLUSH 10/14/16 14:15 (Miralax) 17 gm DAILY PO 10/15/16 15:30 10/15/16 15:30 A/P Problem List: (1) Sepsis ICD Code: A41.9 Status: Acute (2) HIV (human immunodeficiency virus infection) ICD Code: Z21 Status: Chronic (3) ESRD (end stage renal disease) on dialysis ICD Code: N18.6 Status: Acute (4) Thrombocytopenia ICD Code: D69.6 Status: Acute (5) HTN (hypertension) ICD Code: I10 Status: Acute Assessment and Plan Patient is a 41-year-old female with a PMH of HTN, ESRD on HD M/W/ and HIV ( CD4 35 on 06/24/13, HIV RNA undetectable) on HAART who presented to the ER w/ complaints of generalized malaise, fever and chills x3 days. Sepsis secondary to Catheter Associated Bacteremia with MRSA: Met sepsis criteria with Tmax 101.6, tachycardia HR 116, source-bacteremia. + Immunocompromised, h/o HIV on HAART. +Right Chest HD Cath. S/p IVFs. - Blood Cultures 10/12 positive for MRSA - Continue IV Vanco with dialysis. Cefepime discontinued secondary to pruritus. - Consulted infectious disease, appreciate recommendations - Pain control with [place] prn and IV morphine prn - Successful vas catheter placement 10/14/16 - Catheter tip culture MRSA - incentive spirometry HIV: Undetectable. Currently on HAART, resume home medications. Continue outpatient f/up with ID. ESRD on HD: M/W/F. Follows w/ Dr. Rangel. - Nephrology following to resume HD. - AV fistula placed in August 2016. Not yet ready for use. - Vancomycin with dialysis per ID. HTN: Held BP meds secondary to hypotension in setting of sepsis. - Restart meds if BP elevated. Currently normotensive. - Continue to monitor. Anemia, macrocytic - Possibly related to chronic disease, end-stage renal disease. - Monitor trend Constipation - Miralax daily - MOM PRN - add lactulose. DVT Prophylaxis: Heparin sq Discharge Planning Awaiting ID and nephrology clearance Cristóbal Fermin DO Oct 16, 2016 08:51
[2016-10-16] MEDS: POLYETHYLENE GLYCOL 17 GM PKG PO SCH (09:23)
[2016-10-16] MEDS: LACTULOSE SYRUP 20 GM/30 ML CUP PO SCH (09:24)
[2016-10-16] MEDS: VITAMIN B CMPLX/VITC/FOLIC AC CAP PO SCH (09:26)
[2016-10-16] MEDS: LISINOPRIL 20 MG TAB PO SCH ×2 (09:27→20:04)
[2016-10-16] MEDS: ASPIRIN EC 81 MG TABEC PO SCH (09:28)
[2016-10-16] MEDS: valACYclovir HCL 500 MG TAB PO SCH (09:28)
[2016-10-16] MEDS: HEPARIN SODIUM - SQ 10,000 UNITS/ML VIAL SQ SCH ×2 (09:33→20:04)
[2016-10-16] MEDS: LACTIC ACID (AMMONIUM LACTATE) 12% LOTION 225 GM BTL TOPICAL SCH ×2 (09:33→20:08)
[2016-10-16] MEDS: DOCUSATE SODIUM 50 MG/SENNA 8.6 MG TAB PO SCH ×2 (09:36→20:04)
[2016-10-16] MEDS: SODIUM CHLORIDE 0.9% FLUSH 10 ML FLUSH IV FLUSH SCH ×2 (09:36→20:05)
--- NOTE | 2016-10-16 10:09 | HHI.NPPN ---
Subjective Renal Failure: Chronic, End Stage Renal Disease Interval History Intermittent low grade fevers. Dialysis due today. (Vero Ocampo) Review of Systems General Constitutional: Fever, Chills, Fatigue (Vero Ocampo) Objective Data Data 10/15/16 10/16/16 18:59 06:59 Intake Total 480 ml 480 ml Output Total 0 ml 0 ml Balance 480 ml 480 ml Intake Oral 480 ml 480 ml Output Urine Total 0 ml 0 ml # Voids 0 # Bowel Movements 0 0 Vital Signs Date Time Temp Pulse Resp B/P Pulse Ox O2 Delivery O2 Flow Rate FiO2 10/16/16 08:00 98.5 88 18 134/88 99 10/16/16 04:00 99.0 87 16 137/92 98 10/16/16 00:00 Room Air 10/16/16 00:00 98.3 88 16 125/69 98 10/15/16 20:08 90 10/15/16 20:00 99.1 95 16 134/81 100 10/15/16 20:00 Room Air 10/15/16 16:00 99.9 94 18 125/67 98 10/15/16 12:00 98.2 89 20 126/80 96 (Vero Ocampo) -: 10/15/16 0642 10/15/16 0642 Imaging Last 72 hours Impressions Catheter Placement X-Ray 10/14/16 1029 Signed Impressions: Service Date/Time: Friday, October 14, 2016 13:51 - CONCLUSION: Uncomplicated line placement as above. Mason Moore MD Central Venous Line 10/14/16 0000 Signed Impressions: Service Date/Time: Friday, October 14, 2016 00:00 - CONCLUSION: Uncomplicated Permcath removal. Mason Moore MD Tubes & Lines: Perma-Cath (Vero Ocampo) Physical Exam General Appearance: Well Developed, No Acute Distress, Comfortable (Vero Ocampo) Ears & Nose Ears & Nose Exam: Nasal Mucosa [place] (Vero Ocampo) Throat Throat Exam: Oral Mucosa [place] & Moist (Vero Ocampo) Neck Neck Exam: Neck Supple (Vero Ocampo) Pulmonary Resp Exam: Clear Bilaterally, Breath Sounds Equal (Vero Ocampo) Cardiology CV Exam: Regular, Normal Sinus Rhythm (Vero Ocampo) Gastrointestinal/Abdomen GI Exam: Soft, Non-Tender (Vero Ocampo) Musculoskeletal MS Exam: Joints Intact, Normal Gait, Normal Tone, Good Strength (Vero Ocampo) Integumentary Skin Exam: Clear, Warm, Dry, Intact (Vero Ocampo) Extremeties Extremities Exam: No Edema, Pedal Pulses Palpable (Vero Ocampo) Neurologic Neuro Exam: Alert, Awake, Oriented, Speech Clear, Moving All Extremities ( Vero Ocampo) Psychiatric Psych Exam: Appropriate Responses (Vero Ocampo) Assessment/Plan Discussed Condition With: Patient Assessment Summary: Anemia of CKD, End Stage Renal Disease Problem List: (1) ESRD (end stage renal disease) on dialysis Plan: continue dialysis MWF., she is due today Monitor fluid and electrolytes status vascath placed left IJ , , functions well has immature AVF in left arm Avoid IVF. Gadolinium is contraindicated no dietary protein restriction required; supplement added for nutritional support phosphorus level is acceptable not on binder therapy (2) Sepsis Plan: suspected catheter related sepsis. permcath has been removed; cultures positive ID following, on vancomycin with HD will need PermCath placed prior to discharge once negative blood cultures are obtained (3) Anemia Plan: Hemoglobin is acceptable. continue Epogen with dialysis. (4) HIV (human immunodeficiency virus infection) Plan: Continue HAART therapy. (5) Hypertension Plan: BP improved Antihypertensives have been resumed (Vero Ocampo) Plan patient was seen and examined. Repeat blood culture is pending. Continue Vancomycin. Preferable to place PermCath before discharge. (Diego Paige MD) Vero Ocampo Oct 16, 2016 10:09 Diego Paige MD Oct 17, 2016 09:10
[2016-10-16] MEDS: ACETAMINOPHEN 325 MG TAB PO PRN (12:20)
[2016-10-16] MEDS: VANCOMYCIN INJ 1,000 MG in SODIUM CHLOR 0.9% 250 ML INJ 250 ML IV SCH (16:13)
[2016-10-16] MEDS: EPOETIN ALFA 10,000 UNITS/ML VIAL IV PRN (16:14)
[2016-10-16] MEDS: GENTAMICIN SULFATE (DIALYSIS USE ONLY) 20 MG/2 ML VIAL IV PRN (16:14)
[2016-10-16] MEDS: HEPARIN SODIUM - IV 10,000 UNITS/10 ML VIAL PRN (16:14)
[2016-10-16] MEDS: DOLUTEGRAVIR SODIUM 50 MG TAB PO SCH (20:04)
[2016-10-16] MEDS: RILPIVIRINE 25 MG TAB PO SCH (20:04)
[2016-10-16] MEDS: ATORVASTATIN 10 MG TAB PO SCH (20:07)
[2016-10-17] VITALS: BP 123/70; PULSE 99; RESP 16; TEMP 98.9; O2SAT 98
[2016-10-17 04:00] VITALS: BP 130/74; PULSE 95; RESP 16; TEMP 99.2; O2SAT 98
[2016-10-17] MEDS: ACETAMINOPHEN 325 MG TAB PO PRN (05:58)
[2016-10-17 08:00] VITALS: BP 135/76; PULSE 100; RESP 20; TEMP 98.4; O2SAT 97
[2016-10-17] MEDS: ASPIRIN EC 81 MG TABEC PO SCH (10:27)
[2016-10-17] MEDS: LACTULOSE SYRUP 20 GM/30 ML CUP PO SCH (10:27)
--- NOTE | 2016-10-17 10:27 | HHI.NPPN ---
Subjective Renal Failure: Chronic, End Stage Renal Disease Interval History Had dialysis yesterday. No new concerns. Low grade fevers overnight. (Vero Ocampo) Review of Systems General Constitutional: Fever, Chills, Fatigue (Vero Ocampo) Objective Data Data 10/16/16 10/17/16 18:59 06:59 Intake Total 240 ml 480 ml Output Total 2500 ml Balance -2260 ml 480 ml Intake Oral 240 ml 480 ml Hemodialysis 2500 ml # Voids 0 0 # Bowel Movements 0 2 Vital Signs Date Time Temp Pulse Resp B/P Pulse Ox O2 Delivery O2 Flow Rate FiO2 10/17/16 08:00 98.4 100 20 135/76 97 10/17/16 04:00 99.2 95 16 130/74 98 10/17/16 00:00 98.9 99 16 123/70 98 10/16/16 20:00 99.6 97 16 129/68 98 10/16/16 18:28 84 10/16/16 16:20 99.5 104 18 116/71 96 10/16/16 16:00 Room Air 10/16/16 12:00 102.0 100 16 135/81 97 10/16/16 12:00 Room Air (Vero Ocampo) -: 10/15/16 0642 10/15/16 0642 Microbiology 10/16/16 Aerobic Blood Culture, Received Pending 10/16/16 Anaerobic Blood Culture, Received Pending 10/16/16 Aerobic Blood Culture, Received Pending 10/16/16 Anaerobic Blood Culture, Received Pending Tubes & Lines: Perma-Cath (Vero Ocampo) Physical Exam General Appearance: Well Developed, No Acute Distress, Comfortable (Vero Ocampo) Ears & Nose Ears & Nose Exam: Nasal Mucosa [place] (Vero Ocampo) Throat Throat Exam: Oral Mucosa [place] & Moist (Vero Ocampo) Neck Neck Exam: Neck Supple (Vero Ocampo) Pulmonary Resp Exam: Clear Bilaterally, Breath Sounds Equal (Vero Ocampo) Cardiology CV Exam: Regular, Normal Sinus Rhythm (Vero Ocampo) Gastrointestinal/Abdomen GI Exam: Soft, Non-Tender (Vero Ocampo) Musculoskeletal MS Exam: Joints Intact, Normal Gait, Normal Tone, Good Strength (Vero Ocampo) Integumentary Skin Exam: Clear, Warm, Dry, Intact (Vero Ocampo) Extremeties Extremities Exam: No Edema, Pedal Pulses Palpable (Vero Ocampo) Neurologic Neuro Exam: Alert, Awake, Oriented, Speech Clear, Moving All Extremities ( Vero Ocampo) Psychiatric Psych Exam: Appropriate Responses (Vero Ocampo) Assessment/Plan Discussed Condition With: Patient Assessment Summary: Anemia of CKD, Proteinuria, Hypertension, End Stage Renal Disease Problem List: (1) ESRD (end stage renal disease) on dialysis Plan: continue dialysis MWF, 2500 ml UF yesterday Monitor fluid and electrolytes status vascath in left IJ , functions well has immature AVF in left arm Avoid IVF. Gadolinium is contraindicated no dietary protein restriction required; supplement added for nutritional support phosphorus level has been acceptable not on binder therapy (2) Sepsis Plan: suspected catheter related sepsis. PermCath has been removed; cultures positive ID following, on vancomycin with HD will need PermCath placed for outpatient dialysis; one option is to keep her admitted over the weekend to monitor blood culture results, have HD friday with catheter exchange and then discharge the other option is to remove vascath after HD tomorrow; potential discharge with catheter holiday over the weekend; she could go to vascular center Friday AM for PermCath placement and to HD center Friday afternoon; someone would then be required to follow the culture results over the weekend and advise the patient of how to proceed on Friday if the culture came back positive D/W ID, he will be OOT over the weekend until Friday (3) Anemia Plan: Hemoglobin is acceptable. continue Epogen with dialysis. (4) HIV (human immunodeficiency virus infection) Plan: Continue HAART therapy. (5) Hypertension Plan: BP improved continue Antihypertensive medications as ordered; labetalol resumed today (Vero Ocampo) Plan patient was seen and examined. Repeat blood cultures pending. On Vancomycin. If negative, will get PermCath before discharge. (Diego Paige MD) Vero Ocampo Oct 17, 2016 10:27 Diego Paige MD Oct 18, 2016 15:28
[2016-10-17] MEDS: SODIUM CHLORIDE 0.9% FLUSH 10 ML FLUSH IV FLUSH SCH ×2 (10:29→19:52)
[2016-10-17] MEDS: DOCUSATE SODIUM 50 MG/SENNA 8.6 MG TAB PO SCH ×2 (10:29→19:52)
[2016-10-17] MEDS: HEPARIN SODIUM - SQ 10,000 UNITS/ML VIAL SQ SCH ×2 (10:30→19:52)
[2016-10-17] MEDS: LISINOPRIL 20 MG TAB PO SCH ×2 (10:30→19:52)
[2016-10-17] MEDS: valACYclovir HCL 500 MG TAB PO SCH (10:30)
[2016-10-17] MEDS: VITAMIN B CMPLX/VITC/FOLIC AC CAP PO SCH (10:31)
[2016-10-17] MEDS: POLYETHYLENE GLYCOL 17 GM PKG PO SCH (10:31)
[2016-10-17] MEDS: LACTIC ACID (AMMONIUM LACTATE) 12% LOTION 225 GM BTL TOPICAL SCH ×2 (10:31→19:56)
--- NOTE | 2016-10-17 11:08 | HHI.PR ---
Subjective Remarks The patient had no acute complaints. She was resting in bed comfortably. She said she was having her menstrual cramps so she wasn't eating that much. She said she was planning on resting in bed and watching TV. Objective Vitals Vital Signs Date Time Temp Pulse Resp B/P Pulse Ox O2 Delivery O2 Flow Rate FiO2 10/17/16 08:00 98.4 100 20 135/76 97 10/17/16 04:00 99.2 95 16 130/74 98 10/17/16 00:00 98.9 99 16 123/70 98 10/16/16 20:00 99.6 97 16 129/68 98 10/16/16 18:28 84 10/16/16 16:20 99.5 104 18 116/71 96 10/16/16 16:00 Room Air 10/16/16 12:00 102.0 100 16 135/81 97 10/16/16 12:00 Room Air I/O 10/16/16 10/16/16 10/16/16 10/17/16 10/17/16 10/17/16 06:59 14:59 22:59 06:59 14:59 22:59 Intake Total 240 ml 240 ml 240 ml 240 ml Output Total 2500 ml Balance 240 ml 240 ml -2260 ml 240 ml Intake Oral 240 ml 240 ml 240 ml 240 ml Hemodialysis 2500 ml # Voids 0 0 0 0 # Bowel Movements 0 0 0 2 Result Diagram: 10/15/16 0642 10/15/16 0642 Imaging Last Impressions Catheter Placement X-Ray 10/14/16 1029 Signed Impressions: Service Date/Time: Friday, October 14, 2016 13:51 - CONCLUSION: Uncomplicated line placement as above. Mason Moore MD Central Venous Line 10/14/16 0000 Signed Impressions: Service Date/Time: Friday, October 14, 2016 00:00 - CONCLUSION: Uncomplicated Permcath removal. Mason Moore MD Chest X-Ray 10/12/16 1618 Signed Impressions: Service Date/Time: Wednesday, October 12, 2016 16:14 - CONCLUSION: No evidence of acute cardiopulmonary disease. Chet Pnag MD Objective Remarks GENERAL: This is a thinly appearing, well-developed patient, in no apparent distress. SKIN: Warm and dry. HEENT: Normocephalic. Pupils equal round and reactive. Nose without bleeding. Airway patent. NECK: Trachea midline. No JVD. Supple. Vascular catheter in the right IJ. CARDIOVASCULAR: Regular rate and rhythm without murmurs, gallops, or rubs. RESPIRATORY: Clear to auscultation. Breath sounds equal bilaterally. No wheezes , rales, or rhonchi. GASTROINTESTINAL: Abdomen soft, non-tender, nondistended. Bowel Sounds hypoactive. MUSCULOSKELETAL: Extremities without clubbing, cyanosis, or edema. NEUROLOGICAL: Awake and alert. No focal neuro deficit. Moves all extremities. Normal speech. PSYCH: Mood and affect appropriate. Medications and IVs Current Medications Medications (Trade) Dose Ordered Sig/Chinmay Route Start Time Stop Time Status Last Admin (NS Flush) 2 ml UNSCH PRN IV FLUSH 10/12/16 19:30 (NS Flush) 2 ml BID IV FLUSH 10/12/16 21:00 10/17/16 10:29 (Zofran Inj) 4 mg Q6H PRN IVP 10/12/16 19:30 10/12/16 23:31 (Heparin Inj) 5,000 units Q12H SQ 10/13/16 09:00 10/17/16 10:30 (Tylenol) 650 mg Q6H PRN PO 10/12/16 19:30 10/17/16 05:58 ([place] 5-325 Mg) 1 tab Q4H PRN PO 10/12/16 19:30 10/13/16 20:10 (Morphine Inj) 2 mg Q3H PRN IV 10/12/16 19:30 10/14/16 06:22 (Cass-Colace) 1 tab BID PO 10/12/16 21:00 10/17/16 10:29 (Milk Of Magnesia Liq) 30 ml Q12H PRN PO 10/12/16 19:30 10/14/16 21:08 (Senokot) 17.2 mg Q12H PRN PO 10/12/16 19:30 (Dulcolax Supp) 10 mg DAILY PRN RECTAL 10/12/16 19:30 (Lactulose Liq) 30 ml DAILY PRN PO 10/12/16 19:30 (Norvasc) 10 mg DAILY PO 10/13/16 09:00 10/17/16 10:31 (Ecotrin Ec) 81 mg DAILY PO 10/13/16 09:00 10/17/16 10:27 (Lipitor) 10 mg MOWEFR PO 10/14/16 20:00 10/16/16 20:07 (Nephrocaps) 1 cap DAILY PO 10/13/16 09:00 10/17/16 10:31 (Trandate) 300 mg TID PO 10/13/16 09:00 (Prinivil) 20 mg BID PO 10/12/16 21:00 10/17/16 10:30 Valacyclovir HCl 1000 mg 1,000 mg DAILY PO 10/13/16 09:00 10/17/16 10:30 (NS 1000 ml Inj) 1,000 ml @ 0 mls/hr Q0M PRN IV 10/13/16 10:04 10/14/16 16:51 Heparin Sodium (Porcine) 8000 units 8,000 units UNSCH PRN IVF 10/13/16 10:15 Sodium Chloride 1,000 ml @ 200 mls/hr Q5H PRN IV 10/13/16 10:04 (NS 1000 ml Inj) 1,000 ml @ 0 mls/hr Q0M PRN IV 10/13/16 10:04 (Mannitol Inj) 12.5 gm UNSCH PRN IV 10/13/16 10:15 (Albumin 25% Inj) 25 gm UNSCH PRN IV 10/13/16 10:15 (NS Flush) 5 ml UNSCH PRN IV FLUSH 10/13/16 10:15 (Heparin Inj) UNSCH PRN .XX 10/13/16 10:15 10/16/16 16:14 (Gentamicin (Dialysis) Inj) 20 mg UNSCH PRN IV 10/13/16 10:15 10/16/16 16:14 (Zofran Inj) 4 mg UNSCH PRN IV 10/13/16 10:15 (Tylenol) 650 mg UNSCH PRN PO 10/13/16 10:15 (Benadryl) 25 mg UNSCH PRN PO 10/13/16 10:15 10/15/16 06:08 (Nitrostat Sl) 0.4 mg UNSCH PRN SL 10/13/16 10:15 (Catapres) 0.1 mg UNSCH PRN PO 10/13/16 10:15 (Epogen Inj) 5,000 units UNSCH PRN IV 10/13/16 10:15 10/16/16 16:14 (Gelfoam 12 Mm/7 Mm Top) 1 foam UNSCH PRN TOP 10/13/16 10:15 (Epivir) 150 mg HS PO 10/13/16 21:00 10/16/16 20:04 ([place]ant) 25 mg HS PO 10/13/16 21:00 10/16/16 20:04 (Lac-Hydrin 12% Lotion) 1 applic BID TOPICAL 10/14/16 12:00 10/17/16 10:31 ([place] 10-325 Mg) 1 tab Q4H PRN PO 10/14/16 11:00 10/15/16 22:46 (NS Flush) UNSCH PRN IVF 10/14/16 14:15 (Heparin Inj) UNSCH PRN IV FLUSH 10/14/16 14:15 (Miralax) 17 gm DAILY PO 10/15/16 15:30 10/17/16 10:31 (Lactulose Liq) 30 ml DAILY PO 10/16/16 09:15 10/17/16 10:27 A/P Problem List: (1) Sepsis ICD Code: A41.9 Status: Acute (2) HIV (human immunodeficiency virus infection) ICD Code: Z21 Status: Chronic (3) ESRD (end stage renal disease) on dialysis ICD Code: N18.6 Status: Acute (4) Thrombocytopenia ICD Code: D69.6 Status: Acute (5) HTN (hypertension) ICD Code: I10 Status: Acute Assessment and Plan Patient is a 41-year-old female with a PMH of HTN, ESRD on HD M/W/F and HIV ( CD4 35 on 06/24/13, HIV RNA undetectable) on HAART who presented to the ER w/ complaints of generalized malaise, fever and chills x3 days. Sepsis secondary to Catheter Associated Bacteremia with MRSA: Met sepsis criteria with Tmax 101.6, tachycardia HR 116, source-bacteremia. + Immunocompromised, h/o HIV on HAART. +Right Chest HD Cath. S/p IVFs. - Blood Cultures 10/12 positive for MRSA - Continue IV Vanco with dialysis. Cefepime discontinued secondary to pruritus. - Consulted infectious disease, appreciate recommendations - Pain control with [place] prn and IV morphine prn - Successful vas catheter placement 10/14/16 - Catheter tip culture MRSA - incentive spirometry HIV: Undetectable. Currently on HAART, resume home medications. Continue outpatient f/up with ID. ESRD on HD: M/W/F. Follows w/ Dr. Rangel. - Nephrology following to resume HD. Will need PermCath placed for outpatient dialysis. Awaiting negative cultures. Possibly on Friday. - AV fistula placed in August 2016. Not yet ready for use. - Vancomycin with dialysis per ID. HTN: Held BP meds secondary to hypotension in setting of sepsis. - Restart meds if BP elevated. Currently normotensive. - Continue to monitor. Anemia, macrocytic - Possibly related to chronic disease, end-stage renal disease. - Monitor trend - Epo as needed per nephrology. Constipation - Miralax daily - MOM PRN - add lactulose. DVT Prophylaxis: Heparin sq Discharge Planning Awaiting ID and nephrology clearance Cristóbal Fermin DO Oct 17, 2016 11:08
[2016-10-17 12:00] VITALS: BP 137/84; PULSE 92; RESP 20; TEMP 97.6; O2SAT 98
[2016-10-17] MEDS: LABETALOL HCL 300 MG TAB PO SCH ×2 (13:40→17:53)
[2016-10-17 16:00] VITALS: BP 104/63; PULSE 77; RESP 20; TEMP 98.5; O2SAT 98
--- NOTE | 2016-10-17 16:33 | HHI.IDPN ---
Note Infectious Disease Note Patient had temp of 102 yesterday. No chills. No nausea or vomiting. Repeat blood culture has gram positive cocci. PAST MEDICAL HISTORY: 1. End-stage renal disease. 2. HIV disease managed by the outpatient physician and the patient noted undetectable viral load. 3. Hypertension. 4. AV fistula for hemodialysis placed in August of 2016 (not yet ready for use). 5. Bilateral cataracts. ALLERGIES: IRON DEXTRAN. OBJECTIVE: Vital Signs Date Time Temp Pulse Resp B/P Pulse Ox O2 Delivery O2 Flow Rate FiO2 10/17/16 12:00 97.6 92 20 137/84 98 10/17/16 08:00 98.4 100 20 135/76 97 10/17/16 04:00 99.2 95 16 130/74 98 10/17/16 00:00 98.9 99 16 123/70 98 10/16/16 20:00 99.6 97 16 129/68 98 10/16/16 18:28 84 10/16/16 16:20 99.5 104 18 116/71 96 Microbiology Date/Time Procedure Status Source Growth 10/12/16 16:20 Aerobic Blood Culture - Preliminary Resulted Blood Peripheral S. Aureus Mrsa Group D Enterococcus 10/12/16 16:20 Anaerobic Blood Culture - Preliminary Resulted S. Aureus Mrsa 10/12/16 16:30 Aerobic Blood Culture - Preliminary Resulted Blood Peripheral S. Aureus Mrsa 10/12/16 16:30 Anaerobic Blood Culture - Preliminary Resulted S. Aureus Mrsa Group D Enterococcus 10/12/16 17:35 Influenza Types A,B Antigen (JAELYN) - Final Complete Nasal Washing NEGATIVE FOR FLU A AND B ANTIGEN.... PHYSICAL EXAMINATION: GENERAL: No acute distress. HEAD, EYES, EARS, NOSE, THROAT: Pupils reactive to light. No icterus. Oropharynx moist mucosa. No lesions. NECK: Supple without adenopathy. No swelling. LUNGS: Clear to auscultation. HEART: Regular S1 and S2 without murmurs, rubs or gallops. ABDOMEN: Bowel sounds present, soft, no tenderness appreciated. EXTREMITIES: No clubbing, cyanosis or edema. SKIN: No rash. NEUROLOGIC: Nonfocal. PSYCHIATRIC: Calm and cooperative. IMPRESSION: 1. Sepsis due to MRSA. Enterococcus. 2. Catheter-related sepsis. Catheter culture had MRSA and enterococcus. Dialysis catheter removed. 3. End-stage renal disease. 4. HIV disease, which appears stable on current HAART therapy. 5. Repeat blood culture has gram positive cocci. RECOMMENDATIONS: 1. Continue to give the vancomycin with dialysis. 2. Add Ampicillin. 3. Monitor clinical status. 4. Repeat blood culture again with dialysis tomorrow. 5. No permacath until blood culture is clear. I will be off 10/18 - 10/21. Other ID MD covering. Red Gayle MD Oct 17, 2016 16:33
[2016-10-17] MEDS: AMPICILLIN INJ 2,000 MG in SODIUM CHLORIDE 0.9% INJ 100 ML IV SCH (17:54)
[2016-10-17] MEDS: SODIUM CHLORIDE 0.9% FLUSH 10 ML FLUSH IV FLUSH PRN (17:55)
[2016-10-17] MEDS: DOLUTEGRAVIR SODIUM 50 MG TAB PO SCH (19:51)
[2016-10-17] MEDS: RILPIVIRINE 25 MG TAB PO SCH (19:51)
[2016-10-17 20:00] VITALS: BP 106/67; PULSE 71; RESP 20; TEMP 98.4; O2SAT 98
[2016-10-18] VITALS: BP 95/55; PULSE 70; RESP 20; TEMP 98; O2SAT 99
[2016-10-18 04:00] VITALS: BP 118/70; PULSE 77; RESP 20; TEMP 98.2; O2SAT 100
[2016-10-18] MEDS: AMPICILLIN INJ 2,000 MG in SODIUM CHLORIDE 0.9% INJ 100 ML IV SCH ×2 (04:32→18:40)
[2016-10-18 08:00] VITALS: BP 130/73; PULSE 77; RESP 18; TEMP 98; O2SAT 99
[2016-10-18] MEDS: POLYETHYLENE GLYCOL 17 GM PKG PO SCH (08:23)
[2016-10-18] MEDS: LACTULOSE SYRUP 20 GM/30 ML CUP PO SCH (08:23)
[2016-10-18] MEDS: HEPARIN SODIUM - SQ 10,000 UNITS/ML VIAL SQ SCH ×2 (08:24→20:27)
[2016-10-18] MEDS: SODIUM CHLORIDE 0.9% FLUSH 10 ML FLUSH IV FLUSH SCH ×2 (08:24→20:26)
[2016-10-18] MEDS: ASPIRIN EC 81 MG TABEC PO SCH (08:24)
[2016-10-18] MEDS: LABETALOL HCL 300 MG TAB PO SCH ×3 (08:24→18:45)
[2016-10-18] MEDS: LISINOPRIL 20 MG TAB PO SCH ×2 (08:24→20:34)
[2016-10-18] MEDS: VITAMIN B CMPLX/VITC/FOLIC AC CAP PO SCH (08:24)
[2016-10-18] MEDS: valACYclovir HCL 500 MG TAB PO SCH (08:24)
[2016-10-18] MEDS: DOCUSATE SODIUM 50 MG/SENNA 8.6 MG TAB PO SCH ×2 (08:24→20:26)
[2016-10-18] MEDS: LACTIC ACID (AMMONIUM LACTATE) 12% LOTION 225 GM BTL TOPICAL SCH ×2 (08:25→20:28)
[2016-10-18 09:55] LABS: AUTOMATED NEUTROPHIL # 11.2 TH/MM3 (1.8-7.7); BASOPHIL # 0.1 TH/MM3 (0-0.2); BASOPHIL % 0.6 % (0.0-2.0); EOSINOPHIL # 0.5 TH/MM3 (0-0.4); EOSINOPHIL % 3.3 % (0.0-4.0); HEMATOCRIT 26.3 % (35.0-46.0); HEMO FLAGS DIFF FINAL; LYMPH % 17.7 % (9.0-44.0); LYMPHOCYTE # 2.8 TH/MM3 (1.0-4.8); MEAN CELL VOLUME 99.6 FL (80.0-100.0); MEAN CORPUSCULAR HGB CONC 34.2 % (32.0-36.0); MONO % 7.7 % (0.0-8.0); NEUT % 70.7 % (16.0-70.0); PLATELET COUNT 266 TH/MM3 (150-450); RED BLOOD COUNT 2.64 MIL/MM3 (4.00-5.30); RED CELL DISTRIBUTION WIDTH 15.9 % (11.6-17.2); WHITE BLOOD COUNT 15.9 TH/MM3 (4.0-11.0)
--- NOTE | 2016-10-18 10:19 | HHI.NPPN ---
Subjective Renal Failure: Chronic, End Stage Renal Disease Interval History Seen during dialysis. Her blood cultures drawn yesterday are positive. ( Vero Ocampo) Review of Systems General Constitutional: Fever, Chills, Fatigue (Vero Ocampo) Objective Data Data 10/17/16 10/18/16 19:00 07:00 Intake Total 480 ml 720 ml Balance 480 ml 720 ml Intake Oral 480 ml 720 ml # Voids 0 # Bowel Movements 0 Vital Signs Date Time Temp Pulse Resp B/P Pulse Ox O2 Delivery O2 Flow Rate FiO2 10/18/16 10:01 Room Air 21 10/18/16 08:00 98.0 77 18 130/73 99 10/18/16 04:00 98.2 77 20 118/70 100 10/18/16 00:00 98.0 70 20 95/55 99 10/17/16 20:00 98.4 71 20 106/67 98 10/17/16 16:00 98.5 77 20 104/63 98 10/17/16 12:00 97.6 92 20 137/84 98 (Vero Ocampo) -: 10/18/16 0805 10/15/16 0642 Tubes & Lines: Perma-Cath (Vero Ocampo) Physical Exam General Appearance: Well Developed, No Acute Distress, Comfortable (Vero Ocampo) Ears & Nose Ears & Nose Exam: Nasal Mucosa [place] (Vero Ocampo) Throat Throat Exam: Oral Mucosa [place] & Moist (Vero Ocampo) Neck Neck Exam: Neck Supple (Vero Ocampo) Pulmonary Resp Exam: Clear Bilaterally, Breath Sounds Equal, No Distress (Vero Ocampo) Cardiology CV Exam: Regular, Normal Sinus Rhythm (Vero Ocampo) Gastrointestinal/Abdomen GI Exam: Soft, Non-Tender, Bowel Sounds Present (Vero Ocampo) Musculoskeletal MS Exam: Joints Intact, Normal Gait, Normal Tone, Good Strength (Vero Ocampo) Integumentary Skin Exam: Clear, Warm, Dry, Intact (Vero Ocampo) Extremeties Extremities Exam: No Edema, Pedal Pulses Palpable (Vero Ocampo) Neurologic Neuro Exam: Alert, Awake, Oriented, Speech Clear, Moving All Extremities ( Vero Ocampo) Psychiatric Psych Exam: Appropriate Responses (Vero Ocampo) Assessment/Plan Discussed Condition With: Patient Assessment Summary: Anemia of CKD, Proteinuria, Hypertension, End Stage Renal Disease Problem List: (1) ESRD (end stage renal disease) on dialysis Plan: seen during dialysis today on a a 2K, 400 BFR, goal 2L continue dialysis MWF Monitor fluid and electrolytes status vascath in left IJ , functions well, has immature AVF in left arm Avoid IVF. Gadolinium is contraindicated no dietary protein restriction required; supplement added for nutritional support phosphorus level has been acceptable not on binder therapy (2) Sepsis Plan: catheter related sepsis. PermCath has been removed; cultures from 10/16 were positive ID following, on vancomycin with HD ; ampicillin added will need PermCath placed for outpatient dialysis after negative blood cultures have resulted (3) Anemia Plan: Hemoglobin is acceptable. continue Epogen with dialysis. (4) HIV (human immunodeficiency virus infection) Plan: Continue HAART therapy. (5) Hypertension Plan: BP improved continue Antihypertensive as ordered (Vero Ocampo) Plan patient was seen and examined. Repeat blood cultures positive for MRSA. Now on Vancomycin and Ampicillin. Consider echocardiogram to rule out vegetations. PermCath placement postponed. (Diego Paige MD) Vero Ocampo Oct 18, 2016 10:19 Diego Paige MD Oct 18, 2016 15:42
[2016-10-18 10:27] LABS: BICARBONATE 25.6 MEQ/L (21.0-32.0); POTASSIUM 4.9 MEQ/L (3.5-5.1)
[2016-10-18] MEDS: SODIUM CHLOR 0.9% 1000 ML INJ 1,000 ML IV PRN (12:49)
[2016-10-18] MEDS: EPOETIN ALFA 10,000 UNITS/ML VIAL IV PRN (12:50)
[2016-10-18] MEDS: VANCOMYCIN INJ 1,000 MG in SODIUM CHLOR 0.9% 250 ML INJ 250 ML IV SCH (12:50)
[2016-10-18] MEDS: HEPARIN SODIUM - IV 10,000 UNITS/10 ML VIAL PRN (12:50)
[2016-10-18] MEDS: GENTAMICIN SULFATE (DIALYSIS USE ONLY) 20 MG/2 ML VIAL IV PRN (12:50)
--- NOTE | 2016-10-18 15:42 | HHI.PR ---
Subjective Remarks The patient was on the phone. She had dialysis earlier. She had no acute complaints or concerns. Objective Vitals Vital Signs Date Time Temp Pulse Resp B/P Pulse Ox O2 Delivery O2 Flow Rate FiO2 10/18/16 10:01 Room Air 21 10/18/16 08:00 98.0 77 18 130/73 99 10/18/16 04:00 98.2 77 20 118/70 100 10/18/16 00:00 98.0 70 20 95/55 99 10/17/16 20:00 98.4 71 20 106/67 98 10/17/16 16:00 98.5 77 20 104/63 98 I/O 10/17/16 10/17/16 10/17/16 10/18/16 10/18/16 10/18/16 06:59 14:59 22:59 06:59 14:59 22:59 Intake Total 240 ml 480 ml 600 ml 120 ml Output Total 2000 ml Balance 240 ml 480 ml 600 ml 120 ml -2000 ml Intake Oral 240 ml 480 ml 600 ml 120 ml Hemodialysis 2000 ml # Voids 0 0 0 # Bowel Movements 2 0 0 Result Diagram: 10/18/16 0805 10/18/16 0805 Imaging Last Impressions Catheter Placement X-Ray 10/14/16 1029 Signed Impressions: Service Date/Time: Friday, October 14, 2016 13:51 - CONCLUSION: Uncomplicated line placement as above. Mason Moore MD Central Venous Line 10/14/16 0000 Signed Impressions: Service Date/Time: Friday, October 14, 2016 00:00 - CONCLUSION: Uncomplicated Permcath removal. Mason Moore MD Chest X-Ray 10/12/16 1618 Signed Impressions: Service Date/Time: Wednesday, October 12, 2016 16:14 - CONCLUSION: No evidence of acute cardiopulmonary disease. Chet Pang MD Objective Remarks GENERAL: This is a thinly appearing, well-developed patient, in no apparent distress. SKIN: Warm and dry. HEENT: Normocephalic. Pupils equal round and reactive. Nose without bleeding. Airway patent. NECK: Trachea midline. No JVD. Supple. Vascular catheter in the right IJ. CARDIOVASCULAR: Regular rate and rhythm without murmurs, gallops, or rubs. RESPIRATORY: Clear to auscultation. Breath sounds equal bilaterally. No wheezes , rales, or rhonchi. GASTROINTESTINAL: Abdomen soft, non-tender, nondistended. Bowel Sounds hypoactive. MUSCULOSKELETAL: Extremities without clubbing, cyanosis, or edema. NEUROLOGICAL: Awake and alert. No focal neuro deficit. Moves all extremities. Normal speech. PSYCH: Mood and affect appropriate. Medications and IVs Current Medications Medications (Trade) Dose Ordered Sig/Chinmay Route Start Time Stop Time Status Last Admin (NS Flush) 2 ml UNSCH PRN IV FLUSH 10/12/16 19:30 10/17/16 17:55 (NS Flush) 2 ml BID IV FLUSH 10/12/16 21:00 10/18/16 08:24 (Zofran Inj) 4 mg Q6H PRN IVP 10/12/16 19:30 10/12/16 23:31 (Heparin Inj) 5,000 units Q12H SQ 10/13/16 09:00 10/18/16 08:24 (Tylenol) 650 mg Q6H PRN PO 10/12/16 19:30 10/17/16 05:58 ([place] 5-325 Mg) 1 tab Q4H PRN PO 10/12/16 19:30 10/13/16 20:10 (Morphine Inj) 2 mg Q3H PRN IV 10/12/16 19:30 10/14/16 06:22 (Cass-Colace) 1 tab BID PO 10/12/16 21:00 10/18/16 08:24 (Milk Of Magnesia Liq) 30 ml Q12H PRN PO 10/12/16 19:30 10/14/16 21:08 (Senokot) 17.2 mg Q12H PRN PO 10/12/16 19:30 (Dulcolax Supp) 10 mg DAILY PRN RECTAL 10/12/16 19:30 (Lactulose Liq) 30 ml DAILY PRN PO 10/12/16 19:30 (Norvasc) 10 mg DAILY PO 10/13/16 09:00 10/18/16 08:24 (Ecotrin Ec) 81 mg DAILY PO 10/13/16 09:00 10/18/16 08:24 (Lipitor) 10 mg MOWEFR PO 10/14/16 20:00 10/16/16 20:07 (Nephrocaps) 1 cap DAILY PO 10/13/16 09:00 10/18/16 08:24 (Trandate) 300 mg TID PO 10/13/16 09:00 10/18/16 08:24 (Prinivil) 20 mg BID PO 10/12/16 21:00 10/18/16 08:24 Valacyclovir HCl 1000 mg 1,000 mg DAILY PO 10/13/16 09:00 10/18/16 08:24 (NS 1000 ml Inj) 1,000 ml @ 0 mls/hr Q0M PRN IV 10/13/16 10:04 10/18/16 12:49 Heparin Sodium (Porcine) 8000 units 8,000 units UNSCH PRN IVF 10/13/16 10:15 Sodium Chloride 1,000 ml @ 200 mls/hr Q5H PRN IV 10/13/16 10:04 (NS 1000 ml Inj) 1,000 ml @ 0 mls/hr Q0M PRN IV 10/13/16 10:04 (Mannitol Inj) 12.5 gm UNSCH PRN IV 10/13/16 10:15 (Albumin 25% Inj) 25 gm UNSCH PRN IV 10/13/16 10:15 (NS Flush) 5 ml UNSCH PRN IV FLUSH 10/13/16 10:15 (Heparin Inj) UNSCH PRN .XX 10/13/16 10:15 10/18/16 12:50 (Gentamicin (Dialysis) Inj) 20 mg UNSCH PRN IV 10/13/16 10:15 10/18/16 12:50 (Zofran Inj) 4 mg UNSCH PRN IV 10/13/16 10:15 (Tylenol) 650 mg UNSCH PRN PO 10/13/16 10:15 (Benadryl) 25 mg UNSCH PRN PO 10/13/16 10:15 10/15/16 06:08 (Nitrostat Sl) 0.4 mg UNSCH PRN SL 10/13/16 10:15 (Catapres) 0.1 mg UNSCH PRN PO 10/13/16 10:15 (Epogen Inj) 5,000 units UNSCH PRN IV 10/13/16 10:15 10/18/16 12:50 (Gelfoam 12 Mm/7 Mm Top) 1 foam UNSCH PRN TOP 10/13/16 10:15 (Epivir) 150 mg HS PO 10/13/16 21:00 10/17/16 19:51 ([place]) 25 mg HS PO 10/13/16 21:00 10/17/16 19:51 (Lac-Hydrin 12% Lotion) 1 applic BID TOPICAL 10/14/16 12:00 10/18/16 08:25 ([place] 10-325 Mg) 1 tab Q4H PRN PO 10/14/16 11:00 10/15/16 22:46 (NS Flush) UNSCH PRN IVF 10/14/16 14:15 (Heparin Inj) UNSCH PRN IV FLUSH 10/14/16 14:15 (Miralax) 17 gm DAILY PO 10/15/16 15:30 10/18/16 08:23 Lactulose 30 ml 30 ml DAILY PO 10/16/16 09:15 10/18/16 08:23 (Ampicillin Inj/ NS Inj) 100 ml @ 400 mls/hr Q12H IV 10/17/16 18:00 10/18/16 04:32 A/P Problem List: (1) Sepsis ICD Code: A41.9 Status: Acute (2) HIV (human immunodeficiency virus infection) ICD Code: Z21 Status: Chronic (3) ESRD (end stage renal disease) on dialysis ICD Code: N18.6 Status: Acute (4) Thrombocytopenia ICD Code: D69.6 Status: Acute (5) HTN (hypertension) ICD Code: I10 Status: Acute Assessment and Plan Patient is a 41-year-old female with a PMH of HTN, ESRD on HD M/W/F and HIV ( CD4 35 on 06/24/13, HIV RNA undetectable) on HAART who presented to the ER w/ complaints of generalized malaise, fever and chills x3 days. Sepsis secondary to Catheter Associated Bacteremia with MRSA: Met sepsis criteria with Tmax 101.6, tachycardia HR 116, source-bacteremia. + Immunocompromised, h/o HIV on HAART. +Right Chest HD Cath. S/p IVFs. - Blood Cultures 10/12 positive for MRSA. Review blood cultures from 10/16 also growing MRSA. - Consulted infectious disease, appreciate recommendations. Continue IV Vanco with dialysis. Ampicillin added 10/18/16. - Pain control with [place] prn and IV morphine prn - Successful vas catheter placement 10/14/16 - Catheter tip culture MRSA - incentive spirometry HIV: Undetectable. Currently on HAART, resume home medications. Continue outpatient f/up with ID. ESRD on HD: M/W/F. Follows w/ Dr. Rangel. - Nephrology following to resume HD. Will need PermCath placed for outpatient dialysis. Awaiting negative cultures. - AV fistula placed in August 2016. Not yet ready for use. - Vancomycin with dialysis per ID. HTN: Held BP meds secondary to hypotension in setting of sepsis. - Restart meds if BP elevated. Currently normotensive. - Continue to monitor. Anemia, macrocytic - Possibly related to chronic disease, end-stage renal disease. - Monitor trend - Epo as needed per nephrology. Constipation - Miralax daily - MOM PRN - add lactulose. DVT Prophylaxis: Heparin sq Discharge Planning Awaiting ID and nephrology clearance Cristóbal Fermin DO Oct 18, 2016 15:41
[2016-10-18 16:00] VITALS: BP 130/76; PULSE 102; RESP 18; TEMP 102.1; O2SAT 98
[2016-10-18] MEDS ORDERED: Custom Consult Pharmacy 1 EA OTHER SCH (16:30)
--- NOTE | 2016-10-18 16:45 | HHI.IDPN ---
Note Infectious Disease Note ID Xcover for . Ms Tianna is a 41 y/o AAF with PMHx of HIV on HAART, ESRD on HD using Right permacath (now removed), s/p line replacement using ? same tunnel. Also has a Left UE AV fistula site which is not mature. Persistent bacteremia despite cath removal and adjustment of antibiotics. Concern for endocarditis or septic thrombophlebitis. Overnight events reviewed. Tcurrent per RN 100.8 Repeat BCX positive No rash No diarrhea No chest pain or SOB. No N/V tolerating HIV meds. HD Mon, Wed, Fri. Recd vanco in HD. PAST MEDICAL HISTORY: 1. End-stage renal disease. 2. HIV disease managed by the outpatient physician and the patient noted undetectable viral load. 3. Hypertension. 4. AV fistula for hemodialysis placed in August of 2016 (not yet ready for use). 5. Bilateral cataracts. ALLERGIES: IRON DEXTRAN. OBJECTIVE: Vital Signs Date Time Temp Pulse Resp B/P Pulse Ox O2 Delivery O2 Flow Rate FiO2 10/18/16 10:01 Room Air 21 10/18/16 08:00 98.0 77 18 130/73 99 10/18/16 04:00 98.2 77 20 118/70 100 10/18/16 00:00 98.0 70 20 95/55 99 10/17/16 20:00 98.4 71 20 106/67 98 Microbiology Date/Time Procedure Status Source Growth 10/18/16 12:00 Aerobic Blood Culture Received Blood Other Pending 10/18/16 12:00 Anaerobic Blood Culture Received Blood Other Pending 10/16/16 13:30 Aerobic Blood Culture - Final Resulted Blood Other S. Aureus Mrsa 10/16/16 13:30 Anaerobic Blood Culture - Preliminary Resulted Blood Other NO GROWTH IN 2 DAYS 10/14/16 13:23 Wound Culture - Final Complete Catheter Tip Other S. Aureus Mrsa Enterococcus Faecalis Date/Time Procedure Status Source Growth 10/12/16 16:20 Aerobic Blood Culture - Preliminary Resulted Blood Peripheral S. Aureus Mrsa Group D Enterococcus 10/12/16 16:20 Anaerobic Blood Culture - Preliminary Resulted S. Aureus Mrsa 10/12/16 16:30 Aerobic Blood Culture - Preliminary Resulted Blood Peripheral S. Aureus Mrsa 10/12/16 16:30 Anaerobic Blood Culture - Preliminary Resulted S. Aureus Mrsa Group D Enterococcus 10/12/16 17:35 Influenza Types A,B Antigen (JAELYN) - Final Complete Nasal Washing NEGATIVE FOR FLU A AND B ANTIGEN.... PHYSICAL EXAMINATION: GENERAL: No acute distress. Thin built, cachectic appearing female with temporal wasting. HEAD, EYES, EARS, NOSE, THROAT: Pupils reactive to light. No icterus. Oropharynx moist mucosa. No lesions. NECK: Supple without adenopathy. No swelling. LUNGS: Clear to auscultation. HEART: Regular S1 and S2 without murmurs, rubs or gallops. ABDOMEN: Bowel sounds present, soft, no tenderness appreciated. EXTREMITIES: No clubbing, cyanosis or edema. SKIN: No rash. NEUROLOGIC: Nonfocal. PSYCHIATRIC: Calm and cooperative. Right HD cath with no e.o infection. Left UE AV fistula site with no e.o infection IMPRESSION: 1. Sepsis due to MRSA. Enterococcus bacteremia. Appears persistent despite cath removal. ? Septic thrombophlebitis, ? Endocarditis ? seeding of AV fistula. 2. Catheter-related sepsis. Catheter culture had MRSA and enterococcus. Dialysis catheter removed. 3. End-stage renal disease on HD Fri,Fri, Fri. 4. HIV disease, which appears stable on current HAART therapy. (Sees ) RECOMMENDATIONS: Continue to give vancomycin IV with dialysis. Random vanco level. Continue Ampicillin IV. Start Rifampin oral for synergy given concern for fistula site infection ? Foreign body. Follow repeat blood cultures. Follow clinically. Doppler UE bilaterally r/o septic thrombophlebitis. 2D ECHO r/o endocarditis. No permacath until blood culture is clear. Case dw pt, RN and . If bacteremia persists and also prior to new Permacath insertion recommend catheter holiday. Pharmacy custom consult: HIV meds and Rifampin drug interactions and dosing to be adjusted. Time > 40 mins. Critical thinking and decision making. covers this weekend. Please call her if persistent fevers or change in clinical condition. Gabrielle Green MD Oct 18, 2016 16:45
--- NOTE | 2016-10-18 18:50 | RADRPT ---
EXAM DATE/TIME: 10/18/2016 16:53 [place] COMPARISON: No previous studies available for comparison. INDICATIONS : Bilateral arm swelling. MEDICAL HISTORY : Stroke. Hypertension. Gastroesophageal reflux disease. Parathyroid disease. Numbness. Asthma. Dyspnea . Renal failure. Dialysis. Fractures. Hyperthyroidism. Claustrophobia. HIV. Anemia. Eczema. SURGICAL HISTORY : Hysterectomy. section. Bilateral cataract surgery. ENCOUNTER: Initial ACUITY: 1 day PAIN SCORE: 0/10 LOCATION: Bilateral arms. FINDINGS: RIGHT UPPER EXTREMITY: There is spontaneous flow documented in the brachial, basilic, cephalic, axillary, and subclavian vei ns. The vessels are compressible and augmentation response is documented. No filling defects are se en. The flow is phasic with respiration. Direction of flow in the jugular vein is caudal. LEFT UPPER EXTREMITY: There is spontaneous flow documented in the brachial, basilic, axillary, and subclavian veins. The v essels are compressible and augmentation response is documented. No filling defects are seen. The f low is phasic with respiration. Direction of flow in the jugular vein is caudal. CONCLUSION: 1. No deep venous thrombosis identified. Left cephalic vein not clearly visualized. Fistula at the le ft between basilic vein and brachial artery. Doc Langley MD on October 18, 2016 at 18:47 Board Certified Radiologist. This report was verified electronically.
[2016-10-18 20:00] VITALS: BP 99/57; PULSE 80; PULSE 81; RESP 20; TEMP 99.6; O2SAT 97
[2016-10-18] MEDS: RILPIVIRINE 25 MG TAB PO SCH (20:26)
[2016-10-18] MEDS: DOLUTEGRAVIR SODIUM 50 MG TAB PO SCH (20:27)
[2016-10-18] MEDS: ATORVASTATIN 10 MG TAB PO SCH (20:34)
[2016-10-18] MEDS: RIFAMPIN 150 MG CAP PO SCH (20:34)
[2016-10-19] VITALS: BP 94/57; PULSE 76; RESP 20; TEMP 98.3; O2SAT 100
[2016-10-19] MEDS: AMPICILLIN INJ 2,000 MG in SODIUM CHLORIDE 0.9% INJ 100 ML IV SCH ×2 (05:47→17:44)
[2016-10-19 07:09] LABS: HEMATOCRIT 25.6 % (35.0-46.0); MEAN CELL VOLUME 99.4 FL (80.0-100.0); MEAN CORPUSCULAR HEMOGLOBIN 34.3 PG (27.0-34.0); MEAN CORPUSCULAR HGB CONC 34.5 % (32.0-36.0); PLATELET COUNT 275 TH/MM3 (150-450); RED BLOOD COUNT 2.58 MIL/MM3 (4.00-5.30); REVIEW FLAG FINAL; WHITE BLOOD COUNT 15.5 TH/MM3 (4.0-11.0)
[2016-10-19 07:32] LABS: BICARBONATE 28.3 MEQ/L (21.0-32.0); MAGNESIUM 2.6 MG/DL (1.5-2.5); POTASSIUM 4.2 MEQ/L (3.5-5.1)
[2016-10-19 08:00] VITALS: BP 111/70; PULSE 79; RESP 16; TEMP 98.5; O2SAT 99
[2016-10-19] MEDS: SODIUM CHLORIDE 0.9% FLUSH 10 ML FLUSH IV FLUSH SCH ×2 (08:24→19:57)
[2016-10-19] MEDS: valACYclovir HCL 500 MG TAB PO SCH (08:48)
[2016-10-19] MEDS: ASPIRIN EC 81 MG TABEC PO SCH (08:49)
[2016-10-19] MEDS: HEPARIN SODIUM - SQ 10,000 UNITS/ML VIAL SQ SCH ×2 (08:49→19:55)
[2016-10-19] MEDS: LISINOPRIL 20 MG TAB PO SCH ×2 (08:49→19:57)
[2016-10-19] MEDS: POLYETHYLENE GLYCOL 17 GM PKG PO SCH (08:50)
[2016-10-19] MEDS: VITAMIN B CMPLX/VITC/FOLIC AC CAP PO SCH (08:50)
[2016-10-19] MEDS: DOCUSATE SODIUM 50 MG/SENNA 8.6 MG TAB PO SCH ×2 (08:50→19:56)
[2016-10-19] MEDS: LACTULOSE SYRUP 20 GM/30 ML CUP PO SCH (08:50)
[2016-10-19] MEDS: LACTIC ACID (AMMONIUM LACTATE) 12% LOTION 225 GM BTL TOPICAL SCH ×2 (08:51→19:56)
[2016-10-19] MEDS: LABETALOL HCL 300 MG TAB PO SCH ×3 (08:51→17:45)
--- NOTE | 2016-10-19 08:56 | HHI.PR ---
Subjective Remarks This is a pleasant 41 y/o who came to ER 10/12 with fever, as per patient started after receiving Hemodialysis, having pain in the left lateral chest wall area and also dry cough , cultured Gram Positive cocci on four bottles, as we know she has ESRD on HD, has Right Permanent Catheter now removed, status post line replacement, Left UE AV fistula, HD on M/W/F, MRSA Enterococcus Bacteremia, Persistent despite cath removal, septic thrombophlebitis ? by ID specialist, Endocarditis? Cath related Sepsis, recommended to continue Vancomycin, Ampicillin, [id number] on Rifampin oral for synergy Doppler UE bilaterally r/o septic thrombophlebitis, echocardiogram, Seen in her bedroom no nausea, vomit or diarrhea. Objective Vital Signs Date Time Temp Pulse Resp B/P Pulse Ox O2 Delivery O2 Flow Rate FiO2 10/19/16 00:00 Room Air 10/19/16 00:00 98.3 76 20 94/57 100 10/18/16 20:00 80 10/18/16 20:00 Room Air 10/18/16 20:00 99.6 81 20 99/57 97 10/18/16 16:00 102.1 102 18 130/76 98 10/18/16 10:01 Room Air 21 I/O 10/18/16 10/18/16 10/18/16 10/19/16 10/19/16 10/19/16 07:00 15:00 23:00 07:00 15:00 23:00 Intake Total 120 ml 480 ml 720 ml 720 ml Output Total 2000 ml Balance 120 ml -1520 ml 720 ml 720 ml Intake Oral 120 ml 480 ml 720 ml 720 ml Hemodialysis 2000 ml # Voids 0 0 0 0 # Bowel Movements 0 0 0 0 Result Diagram: 10/19/16 0500 10/19/16 0500 Imaging Last Impressions Upper Extremity Ultrasound 10/18/16 0000 Signed Impressions: Service Date/Time: Tuesday, October 18, 2016 16:53 - CONCLUSION: 1. No deep venous thrombosis identified. Left cephalic vein not clearly visualized. Fistula at the left between basilic vein and brachial artery. Doc Langley MD Catheter Placement X-Ray 10/14/16 1029 Signed Impressions: Service Date/Time: Friday, October 14, 2016 13:51 - CONCLUSION: Uncomplicated line placement as above. Mason Moore MD Central Venous Line 10/14/16 0000 Signed Impressions: Service Date/Time: Friday, October 14, 2016 00:00 - CONCLUSION: Uncomplicated Permcath removal. Mason Moore MD Chest X-Ray 10/12/16 1618 Signed Impressions: Service Date/Time: Wednesday, October 12, 2016 16:14 - CONCLUSION: No evidence of acute cardiopulmonary disease. Chet Pang MD Other Results Laboratory Tests Test 10/18/16 10/18/16 10/19/16 08:05 18:44 05:00 Neutrophils (%) (Auto) 70.7 % Lymphocytes (%) (Auto) 17.7 % Monocytes (%) (Auto) 7.7 % Eosinophils (%) (Auto) 3.3 % Basophils (%) (Auto) 0.6 % Neutrophils # (Auto) 11.2 TH/MM3 Lymphocytes # (Auto) 2.8 TH/MM3 Monocytes # (Auto) 1.2 TH/MM3 Eosinophils # (Auto) 0.5 TH/MM3 Basophils # (Auto) 0.1 TH/MM3 CBC Comment DIFF FINAL Differential Comment Phosphorus Level 7.4 MG/DL Albumin 2.2 GM/DL Random Vancomycin Level 37.7 COMMENT White Blood Count 15.5 TH/MM3 Red Blood Count 2.58 MIL/MM3 Hemoglobin 8.8 GM/DL Hematocrit 25.6 % Mean Corpuscular Volume 99.4 FL Mean Corpuscular Hemoglobin 34.3 PG Mean Corpuscular Hemoglobin 34.5 % Concent Red Cell Distribution Width 16.0 % Platelet Count 275 TH/MM3 Mean Platelet Volume 9.5 FL Sodium Level 133 MEQ/L Potassium Level 4.2 MEQ/L Chloride Level 90 MEQ/L Carbon Dioxide Level 28.3 MEQ/L Anion Gap 15 MEQ/L Blood Urea Nitrogen 41 MG/DL Creatinine 6.54 MG/DL Estimat Glomerular Filtration 8 ML/MIN Rate Random Glucose 87 MG/DL Calcium Level 8.9 MG/DL Magnesium Level 2.6 MG/DL Objective Remarks GENERAL: This is a thinly appearing, well-developed patient, in no apparent distress. SKIN: Warm and dry. HEENT: Normocephalic. Pupils equal round and reactive. Nose without bleeding. Airway patent. NECK: Trachea midline. No JVD. Supple. Vascular catheter in the right IJ. CARDIOVASCULAR: Regular rate and rhythm without murmurs, gallops, or rubs. RESPIRATORY: Clear to auscultation. Breath sounds equal bilaterally. No wheezes , rales, or rhonchi. GASTROINTESTINAL: Abdomen soft, non-tender, nondistended. Bowel Sounds hypoactive. MUSCULOSKELETAL: Extremities without clubbing, cyanosis, or edema. NEUROLOGICAL: Awake and alert. No focal neuro deficit. Moves all extremities. Normal speech. PSYCH: Mood and affect appropriate. Medications and IVs Current Medications Medications (Trade) Dose Ordered Sig/Chin[place] Route Start Time Stop Time Status Last Admin (NS Flush) 2 ml UNSCH PRN IV FLUSH 10/12/16 19:30 10/17/16 17:55 (NS Flush) 2 ml BID IV FLUSH 10/12/16 21:00 10/19/16 08:24 (Zofran Inj) 4 mg Q6H PRN IVP 10/12/16 19:30 10/12/16 23:31 (Heparin Inj) 5,000 units Q12H SQ 10/13/16 09:00 10/19/16 08:49 (Tylenol) 650 mg Q6H PRN PO 10/12/16 19:30 10/17/16 05:58 ([place] 5-325 Mg) 1 tab Q4H PRN PO 10/12/16 19:30 10/13/16 20:10 (Morphine Inj) 2 mg Q3H PRN IV 10/12/16 19:30 10/14/16 06:22 (Cass-Colace) 1 tab BID PO 10/12/16 21:00 10/19/16 08:50 (Milk Of Magnesia Liq) 30 ml Q12H PRN PO 10/12/16 19:30 10/14/16 21:08 (Senokot) 17.2 mg Q12H PRN PO 10/12/16 19:30 (Dulcolax Supp) 10 mg DAILY PRN RECTAL 10/12/16 19:30 (Lactulose Liq) 30 ml DAILY PRN PO 10/12/16 19:30 (Norvasc) 10 mg DAILY PO 10/13/16 09:00 10/19/16 08:49 (Ecotrin Ec) 81 mg DAILY PO 10/13/16 09:00 10/19/16 08:49 (Lipitor) 10 mg MOWEFR PO 10/14/16 20:00 10/18/16 20:34 (Nephrocaps) 1 cap DAILY PO 10/13/16 09:00 10/19/16 08:50 (Trandate) 300 mg TID PO 10/13/16 09:00 10/19/16 08:51 (Prinivil) 20 mg BID PO 10/12/16 21:00 10/19/16 08:49 Valacyclovir HCl 1000 mg 1,000 mg DAILY PO 10/13/16 09:00 10/19/16 08:48 (NS 1000 ml Inj) 1,000 ml @ 0 mls/hr Q0M PRN IV 10/13/16 10:04 10/18/16 12:49 Heparin Sodium (Porcine) 8000 units 8,000 units UNSCH PRN IVF 10/13/16 10:15 Sodium Chloride 1,000 ml @ 200 mls/hr Q5H PRN IV 10/13/16 10:04 (NS 1000 ml Inj) 1,000 ml @ 0 mls/hr Q0M PRN IV 10/13/16 10:04 (Mannitol Inj) 12.5 gm UNSCH PRN IV 10/13/16 10:15 (Albumin 25% Inj) 25 gm UNSCH PRN IV 10/13/16 10:15 (NS Flush) 5 ml UNSCH PRN IV FLUSH 10/13/16 10:15 (Heparin Inj) UNSCH PRN .XX 10/13/16 10:15 10/18/16 12:50 (Gentamicin (Dialysis) Inj) 20 mg UNSCH PRN IV 10/13/16 10:15 10/18/16 12:50 (Zofran Inj) 4 mg UNSCH PRN IV 10/13/16 10:15 (Tylenol) 650 mg UNSCH PRN PO 10/13/16 10:15 10/18/16 16:13 (Benadryl) 25 mg UNSCH PRN PO 10/13/16 10:15 10/15/16 06:08 (Nitrostat Sl) 0.4 mg UNSCH PRN SL 10/13/16 10:15 (Catapres) 0.1 mg UNSCH PRN PO 10/13/16 10:15 (Epogen Inj) 5,000 units UNSCH PRN IV 10/13/16 10:15 10/18/16 12:50 (Gelfoam 12 Mm/7 Mm Top) 1 foam UNSCH PRN TOP 10/13/16 10:15 (Epivir) 150 mg HS PO 10/13/16 21:00 10/18/16 20:26 (Edurant) 25 mg HS PO 10/13/16 21:00 10/18/16 20:26 (Lac-Hydrin 12% Lotion) 1 applic BID TOPICAL 10/14/16 12:00 10/19/16 08:51 ([place] 10-325 Mg) 1 tab Q4H PRN PO 10/14/16 11:00 10/15/16 22:46 (NS Flush) UNSCH PRN IVF 10/14/16 14:15 (Heparin Inj) UNSCH PRN IV FLUSH 10/14/16 14:15 (Miralax) 17 gm DAILY PO 10/15/16 15:30 10/19/16 08:50 Lactulose 30 ml 30 ml DAILY PO 10/16/16 09:15 10/18/16 08:23 (Ampicillin Inj/ NS Inj) 100 ml @ 400 mls/hr Q12H IV 10/17/16 18:00 10/19/16 05:47 Rifampin 600 mg 600 mg HS PO 10/18/16 21:00 10/18/16 20:34 ([facility]) 0 ml @ 0 mls/hr UNSCH OTHER 10/18/16 16:30 A/P Assessment and Plan Patient is a 41-year-old female with a PMH of HTN, ESRD on HD M/W/F and HIV ( CD4 35 on 06/24/13, HIV RNA undetectable) on HAART who presented to the ER w/ complaints of generalized malaise, fever and chills x3 days. Sepsis secondary to Catheter Associated Bacteremia with MRSA: Met sepsis criteria with Tmax 101.6, tachycardia HR 116, source-bacteremia. + Immunocompromised, h/o HIV on HAART. +Right Chest HD Cath. S/p IVFs. - Blood Cultures 10/12 positive for MRSA, Enterococcus Bacteremia. Review blood cultures from 10/16 also growing MRSA. - Consulted infectious disease, appreciate recommendations. Continue IV Vanco with dialysis. Ampicillin added 10/18/16. - Pain control with [place] prn and IV morphine prn - Successful vas catheter placement 10/14/16 - Catheter tip culture MRSA, as per ID specialist Persistent MRSA, Enterococcus Bacteremia Persistent despite cath removal, septic thrombophlebitis ? by ID specialist, Endocarditis Cath related Sepsis, recommended to continue Vancomycin, Ampicillin, Started on Rifampin oral for synergy Doppler UE bilaterally r/o septic thrombophlebitis, echocardiogram, HIV: Undetectable. Currently on HAART, resume home medications. Continue outpatient f/up with ID. ESRD on HD: M/W/F. Follows w/ Dr. Rangel. - Nephrology following to resume HD. Will need PermCath placed for outpatient dialysis. Awaiting negative cultures. - AV fistula placed in August 2016. Not yet ready for use. - Vancomycin with dialysis per ID. HTN: Held BP meds secondary to hypotension in setting of sepsis. - Restart meds if BP elevated. Currently normotensive. - Continue to monitor. Anemia, macrocytic - Possibly related to chronic disease, end-stage renal disease. - Monitor trend - Epo as needed per nephrology. Constipation - Miralax daily - MOM PRN - add lactulose. DVT Prophylaxis: Heparin sq Discussed with Patient and nurse Miss Mark. Discharge Planning Awaiting ID and nephrology clearance Papo Dunham MD Oct 19, 2016 08:55
[2016-10-19 12:00] VITALS: BP 92/57; PULSE 71; RESP 16; TEMP 97.4; O2SAT 100
--- NOTE | 2016-10-19 13:23 | HHI.NPPN ---
Subjective Renal Failure: Chronic, End Stage Renal Disease Additional Remarks Patient is alert, not eating well, no nausea. Review of Systems General Constitutional: Fever, Chills, Fatigue Objective Data Data 10/18/16 10/19/16 19:00 07:00 Intake Total 480 ml 1440 ml Output Total 2000 ml Balance -1520 ml 1440 ml Intake Oral 480 ml 1440 ml Hemodialysis 2000 ml # Voids 0 0 # Bowel Movements 0 0 Vital Signs Date Time Temp Pulse Resp B/P Pulse Ox O2 Delivery O2 Flow Rate FiO2 10/19/16 12:00 97.4 71 16 92/57 100 10/19/16 09:31 Room Air 21 10/19/16 08:00 98.5 79 16 111/70 99 10/19/16 00:00 Room Air 10/19/16 00:00 98.3 76 20 94/57 100 10/18/16 20:00 80 10/18/16 20:00 Room Air 10/18/16 20:00 99.6 81 20 99/57 97 10/18/16 16:00 102.1 102 18 130/76 98 -: 10/19/16 0500 10/19/16 0500 Tubes & Lines: Perma-Cath Physical Exam General Appearance: No Acute Distress, Comfortable, Malnourished Ears & Nose Ears & Nose Exam: Nasal Mucosa [place] Throat Throat Exam: Oral Mucosa [place] & Moist Neck Neck Exam: Neck Supple Pulmonary Resp Exam: Clear Bilaterally, Breath Sounds Equal, No Distress Cardiology CV Exam: Regular, Normal Sinus Rhythm Gastrointestinal/Abdomen GI Exam: Soft, Non-Tender, Bowel Sounds Present Musculoskeletal MS Exam: Joints Intact, Normal Gait, Normal Tone, Good Strength Integumentary Skin Exam: Clear, Warm, Dry, Intact Extremeties Extremities Exam: Trace Edema Neurologic Neuro Exam: Alert, Awake, Oriented Psychiatric Psych Exam: Appropriate Responses Assessment/Plan Discussed Condition With: Patient Assessment Summary: Anemia of CKD, Proteinuria, Hypertension, End Stage Renal Disease Problem List: (1) ESRD (end stage renal disease) on dialysis Plan: continue dialysis MWF Monitor fluid and electrolytes status vascath in left IJ , functions well, has immature AVF in left arm Avoid IVF. Gadolinium is contraindicated no dietary protein restriction required; supplement added for nutritional support phosphorus level has been acceptable not on binder therapy. HD done yesterday. (2) Sepsis Plan: catheter related sepsis. PermCath has been removed; cultures from 10/16 were positive ID following, on vancomycin with HD ; ampicillin added will need PermCath placed for outpatient dialysis after negative blood cultures have resulted (3) Anemia Plan: Hemoglobin is acceptable. continue Epogen with dialysis. (4) HIV (human immunodeficiency virus infection) Plan: Continue HAART therapy. (5) Hypertension Plan: BP improved continue Antihypertensive as ordered Plan Repeat blood cultures 10/18 are PND. Now on Vancomycin and Ampicillin. Consider echocardiogram to rule out vegetations. PermCath placement postponed. Christiano Denise MD Oct 19, 2016 13:23
[2016-10-19 16:00] VITALS: BP 106/63; PULSE 75; RESP 16; TEMP 98.5; O2SAT 100
[2016-10-19] MEDS: RIFAMPIN 150 MG CAP PO SCH (19:55)
[2016-10-19] MEDS: DOLUTEGRAVIR SODIUM 50 MG TAB PO SCH (19:56)
[2016-10-19] MEDS: RILPIVIRINE 25 MG TAB PO SCH (19:56)
[2016-10-19 20:00] VITALS: BP 84/51; PULSE 77; PULSE 84; RESP 18; TEMP 98.6; O2SAT 98
[2016-10-20] VITALS: BP 88/55; PULSE 73; RESP 16; TEMP 98.3; O2SAT 100
[2016-10-20 04:00] VITALS: BP 118/57; PULSE 82; RESP 18; TEMP 97.9; O2SAT 99
[2016-10-20] MEDS: AMPICILLIN INJ 2,000 MG in SODIUM CHLORIDE 0.9% INJ 100 ML IV SCH ×2 (06:08→18:00)
[2016-10-20 08:00] VITALS: BP 109/62; PULSE 77; RESP 18; TEMP 98.3; O2SAT 96
[2016-10-20] MEDS: LACTULOSE SYRUP 20 GM/30 ML CUP PO SCH (09:00)
[2016-10-20] MEDS: VITAMIN B CMPLX/VITC/FOLIC AC CAP PO SCH (09:00)
[2016-10-20] MEDS: SODIUM CHLORIDE 0.9% FLUSH 10 ML FLUSH IV FLUSH SCH ×2 (09:00→20:37)
[2016-10-20] MEDS: LACTIC ACID (AMMONIUM LACTATE) 12% LOTION 225 GM BTL TOPICAL SCH ×2 (09:00→20:38)
[2016-10-20] MEDS: LISINOPRIL 20 MG TAB PO SCH ×2 (09:00→20:35)
[2016-10-20] MEDS: POLYETHYLENE GLYCOL 17 GM PKG PO SCH (09:00)
[2016-10-20] MEDS: LABETALOL HCL 300 MG TAB PO SCH ×3 (09:00→18:00)
[2016-10-20] MEDS: valACYclovir HCL 500 MG TAB PO SCH (09:21)
[2016-10-20] MEDS: DOCUSATE SODIUM 50 MG/SENNA 8.6 MG TAB PO SCH ×2 (09:22→20:36)
[2016-10-20] MEDS: HEPARIN SODIUM - SQ 10,000 UNITS/ML VIAL SQ SCH ×2 (09:23→20:37)
[2016-10-20] MEDS: ASPIRIN EC 81 MG TABEC PO SCH (09:23)
--- NOTE | 2016-10-20 11:19 | HHI.NPPN ---
Subjective Renal Failure: Chronic, End Stage Renal Disease Additional Remarks Patient is alert, not eating well, no nausea, no abd. pain, has decrease appetite. Review of Systems General Constitutional: Fever, Chills, Fatigue Objective Data Data 10/19/16 10/20/16 19:00 07:00 Intake Total 320 ml 690 ml Output Total 0 ml Balance 320 ml 690 ml Intake Oral 320 ml 480 ml IV Total 210 ml Output Urine Total 0 ml # Bowel Movements 0 Vital Signs Date Time Temp Pulse Resp B/P Pulse Ox O2 Delivery O2 Flow Rate FiO2 10/20/16 08:00 98.3 77 18 109/62 96 10/20/16 04:00 97.9 82 18 118/57 99 10/20/16 04:00 Room Air 10/20/16 00:00 98.3 73 16 88/55 100 10/20/16 00:00 Room Air 10/19/16 20:00 84 10/19/16 20:00 Room Air 10/19/16 20:00 98.6 77 18 84/51 98 10/19/16 16:00 98.5 75 16 106/63 100 10/19/16 12:00 97.4 71 16 92/57 100 -: 10/19/16 0500 10/19/16 0500 Tubes & Lines: Perma-Cath Physical Exam General Appearance: No Acute Distress, Comfortable, Malnourished Ears & Nose Ears & Nose Exam: Nasal Mucosa [place] Throat Throat Exam: Oral Mucosa [place] & Moist Neck Neck Exam: Neck Supple Pulmonary Resp Exam: Clear Bilaterally, Breath Sounds Equal, No Distress Cardiology CV Exam: Regular, Normal Sinus Rhythm Gastrointestinal/Abdomen GI Exam: Soft, Non-Tender, Bowel Sounds Present Musculoskeletal MS Exam: Joints Intact, Normal Gait, Normal Tone, Good Strength Integumentary Skin Exam: Clear, Warm, Dry, Intact Extremeties Extremities Exam: Trace Edema Neurologic Neuro Exam: Alert, Awake, Oriented Psychiatric Psych Exam: Appropriate Responses Assessment/Plan Discussed Condition With: Patient Assessment Summary: Anemia of CKD, Proteinuria, Hypertension, End Stage Renal Disease Problem List: (1) ESRD (end stage renal disease) on dialysis Plan: continue dialysis MWF Monitor fluid and electrolytes status vascath in left IJ , functions well, has immature AVF in left arm Avoid IVF. Gadolinium is contraindicated no dietary protein restriction required; phosphorus level has been acceptable not on binder therapy. Add Nepro with diet. HD to continue MWF. (2) Sepsis Plan: catheter related sepsis. PermCath has been removed; cultures from 10/16 were positive ID following, on vancomycin with HD ; ampicillin added will need PermCath placed for outpatient dialysis after negative blood cultures have resulted. BC from 10/18 negative. (3) Anemia Plan: Hemoglobin is acceptable. continue Epogen with dialysis. (4) HIV (human immunodeficiency virus infection) Plan: Continue HAART therapy. (5) Hypertension Plan: BP improved continue Antihypertensive as ordered Plan Now on Vancomycin and Ampicillin. Consider echocardiogram to rule out vegetations. PermCath placement postponed. Christiano Denise MD Oct 20, 2016 11:19
[2016-10-20 12:00] VITALS: BP 146/91; PULSE 98; RESP 18; TEMP 98; O2SAT 96
--- NOTE | 2016-10-20 12:19 | HHI.PR ---
Subjective Remarks This is a pleasant 41 y/o who came to ER 10/12 with fever, as per patient started after receiving Hemodialysis, having pain in the left lateral chest wall area and also dry cough , cultured Gram Positive cocci on four bottles, as we know she has ESRD on HD, has Right Permanent Catheter now removed, status post line replacement, Left UE AV fistula, HD on M/W/F, MRSA Enterococcus Bacteremia, Persistent despite cath removal, septic thrombophlebitis ? by ID specialist, Endocarditis? Cath related Sepsis, recommended to continue Vancomycin, Ampicillin, [id number] on Rifampin oral for synergy Doppler UE bilaterally r/o septic thrombophlebitis, echocardiogram, 10/20: Seen in her bedroom no nausea, vomit or diarrhea continue present care. Objective Vital Signs Date Time Temp Pulse Resp B/P Pulse Ox O2 Delivery O2 Flow Rate FiO2 10/20/16 12:00 98.0 98 18 146/91 96 10/20/16 08:00 77 10/20/16 08:00 98.3 77 18 109/62 96 10/20/16 07:15 Room Air 10/20/16 04:00 97.9 82 18 118/57 99 10/20/16 04:00 Room Air 10/20/16 00:00 98.3 73 16 88/55 100 10/20/16 00:00 Room Air 10/19/16 20:00 84 10/19/16 20:00 Room Air 10/19/16 20:00 98.6 77 18 84/51 98 10/19/16 16:00 98.5 75 16 106/63 100 I/O 10/19/16 10/19/16 10/19/16 10/20/16 10/20/16 10/20/16 07:00 15:00 23:00 07:00 15:00 23:00 Intake Total 720 ml 320 ml 345 ml 345 ml Output Total 0 ml 0 ml Balance 720 ml 320 ml 345 ml 345 ml Intake Oral 720 ml 320 ml 240 ml 240 ml IV Total 105 ml 105 ml Output Urine Total 0 ml 0 ml # Voids 0 # Bowel Movements 0 0 0 Result Diagram: 10/19/16 0500 10/19/16 0500 Imaging Last Impressions Upper Extremity Ultrasound 10/18/16 0000 Signed Impressions: Service Date/Time: Tuesday, October 18, 2016 16:53 - CONCLUSION: 1. No deep venous thrombosis identified. Left cephalic vein not clearly visualized. Fistula at the left between basilic vein and brachial artery. Doc Langley MD Catheter Placement X-Ray 10/14/16 1029 Signed Impressions: Service Date/Time: Friday, October 14, 2016 13:51 - CONCLUSION: Uncomplicated line placement as above. Mason Moore MD Central Venous Line 10/14/16 0000 Signed Impressions: Service Date/Time: Friday, October 14, 2016 00:00 - CONCLUSION: Uncomplicated Permcath removal. Mason Moore MD Chest X-Ray 10/12/16 1618 Signed Impressions: Service Date/Time: Wednesday, October 12, 2016 16:14 - CONCLUSION: No evidence of acute cardiopulmonary disease. Chet Pang MD Procedures None Other Results Laboratory Tests Test 10/18/16 10/18/16 10/19/16 08:05 18:44 05:00 Neutrophils (%) (Auto) 70.7 % Lymphocytes (%) (Auto) 17.7 % Monocytes (%) (Auto) 7.7 % Eosinophils (%) (Auto) 3.3 % Basophils (%) (Auto) 0.6 % Neutrophils # (Auto) 11.2 TH/MM3 Lymphocytes # (Auto) 2.8 TH/MM3 Monocytes # (Auto) 1.2 TH/MM3 Eosinophils # (Auto) 0.5 TH/MM3 Basophils # (Auto) 0.1 TH/MM3 CBC Comment DIFF FINAL Differential Comment Phosphorus Level 7.4 MG/DL Albumin 2.2 GM/DL Random Vancomycin Level 37.7 COMMENT White Blood Count 15.5 TH/MM3 Red Blood Count 2.58 MIL/MM3 Hemoglobin 8.8 GM/DL Hematocrit 25.6 % Mean Corpuscular Volume 99.4 FL Mean Corpuscular Hemoglobin 34.3 PG Mean Corpuscular Hemoglobin 34.5 % Concent Red Cell Distribution Width 16.0 % Platelet Count 275 TH/MM3 Mean Platelet Volume 9.5 FL Sodium Level 133 MEQ/L Potassium Level 4.2 MEQ/L Chloride Level 90 MEQ/L Carbon Dioxide Level 28.3 MEQ/L Anion Gap 15 MEQ/L Blood Urea Nitrogen 41 MG/DL Creatinine 6.54 MG/DL Estimat Glomerular Filtration 8 ML/MIN Rate Random Glucose 87 MG/DL Calcium Level 8.9 MG/DL Magnesium Level 2.6 MG/DL Objective Remarks GENERAL: This is a thinly appearing, well-developed patient, in no apparent distress. SKIN: Warm and dry. HEENT: Normocephalic. Pupils equal round and reactive. Nose without bleeding. Airway patent. NECK: Trachea midline. No JVD. Supple. Vascular catheter in the right IJ. CARDIOVASCULAR: Regular rate and rhythm without murmurs, gallops, or rubs. RESPIRATORY: Clear to auscultation. Breath sounds equal bilaterally. No wheezes , rales, or rhonchi. GASTROINTESTINAL: Abdomen soft, non-tender, nondistended. Bowel Sounds hypoactive. MUSCULOSKELETAL: Extremities without clubbing, cyanosis, or edema. NEUROLOGICAL: Awake and alert. No focal neuro deficit. Moves all extremities. Normal speech. PSYCH: Mood and affect appropriate. Medications and IVs Current Medications Medications (Trade) Dose Ordered Sig/Chinmay Route Start Time Stop Time Status Last Admin (NS Flush) 2 ml UNSCH PRN IV FLUSH 10/12/16 19:30 10/17/16 17:55 (NS Flush) 2 ml BID IV FLUSH 10/12/16 21:00 10/20/16 09:00 (Zofran Inj) 4 mg Q6H PRN IVP 10/12/16 19:30 10/12/16 23:31 (Heparin Inj) 5,000 units Q12H SQ 10/13/16 09:00 10/20/16 09:23 (Tylenol) 650 mg Q6H PRN PO 10/12/16 19:30 10/17/16 05:58 ([place] 5-325 Mg) 1 tab Q4H PRN PO 10/12/16 19:30 10/13/16 20:10 (Morphine Inj) 2 mg Q3H PRN IV 10/12/16 19:30 10/14/16 06:22 (Cass-Colace) 1 tab BID PO 10/12/16 21:00 10/20/16 09:22 (Milk Of Magnesia Liq) 30 ml Q12H PRN PO 10/12/16 19:30 10/14/16 21:08 (Senokot) 17.2 mg Q12H PRN PO 10/12/16 19:30 (Dulcolax Supp) 10 mg DAILY PRN RECTAL 10/12/16 19:30 (Lactulose Liq) 30 ml DAILY PRN PO 10/12/16 19:30 (Norvasc) 10 mg DAILY PO 10/13/16 09:00 10/19/16 08:49 (Ecotrin Ec) 81 mg DAILY PO 10/13/16 09:00 10/20/16 09:23 (Lipitor) 10 mg MOWEFR PO 10/14/16 20:00 10/18/16 20:34 (Nephrocaps) 1 cap DAILY PO 10/13/16 09:00 10/20/16 09:00 (Trandate) 300 mg TID PO 10/13/16 09:00 10/19/16 17:45 (Prinivil) 20 mg BID PO 10/12/16 21:00 10/19/16 08:49 Valacyclovir HCl 1000 mg 1,000 mg DAILY PO 10/13/16 09:00 10/20/16 09:21 (NS 1000 ml Inj) 1,000 ml @ 0 mls/hr Q0M PRN IV 10/13/16 10:04 10/18/16 12:49 Heparin Sodium (Porcine) 8000 units 8,000 units UNSCH PRN IVF 10/13/16 10:15 Sodium Chloride 1,000 ml @ 200 mls/hr Q5H PRN IV 10/13/16 10:04 (NS 1000 ml Inj) 1,000 ml @ 0 mls/hr Q0M PRN IV 10/13/16 10:04 (Mannitol Inj) 12.5 gm UNSCH PRN IV 10/13/16 10:15 (Albumin 25% Inj) 25 gm UNSCH PRN IV 10/13/16 10:15 (NS Flush) 5 ml UNSCH PRN IV FLUSH 10/13/16 10:15 (Heparin Inj) UNSCH PRN .XX 10/13/16 10:15 10/18/16 12:50 (Gentamicin (Dialysis) Inj) 20 mg UNSCH PRN IV 10/13/16 10:15 10/18/16 12:50 (Zofran Inj) 4 mg UNSCH PRN IV 10/13/16 10:15 (Tylenol) 650 mg UNSCH PRN PO 10/13/16 10:15 10/18/16 16:13 (Benadryl) 25 mg UNSCH PRN PO 10/13/16 10:15 10/15/16 06:08 (Nitrostat Sl) 0.4 mg UNSCH PRN SL 10/13/16 10:15 (Catapres) 0.1 mg UNSCH PRN PO 10/13/16 10:15 (Epogen Inj) 5,000 units UNSCH PRN IV 10/13/16 10:15 10/18/16 12:50 (Gelfoam 12 Mm/7 Mm Top) 1 foam UNSCH PRN TOP 10/13/16 10:15 (Epivir) 150 mg HS PO 10/13/16 21:00 10/19/16 19:55 (Edurant) 25 mg HS PO 10/13/16 21:00 10/19/16 19:56 (Lac-Hydrin 12% Lotion) 1 applic BID TOPICAL 10/14/16 12:00 10/20/16 09:00 ([place] 10-325 Mg) 1 tab Q4H PRN PO 10/14/16 11:00 10/15/16 22:46 (NS Flush) UNSCH PRN IVF 10/14/16 14:15 (Heparin Inj) UNSCH PRN IV FLUSH 10/14/16 14:15 (Miralax) 17 gm DAILY PO 10/15/16 15:30 10/19/16 08:50 Lactulose 30 ml 30 ml DAILY PO 10/16/16 09:15 10/18/16 08:23 (Ampicillin Inj/ NS Inj) 100 ml @ 400 mls/hr Q12H IV 10/17/16 18:00 10/20/16 06:08 Rifampin 600 mg 600 mg HS PO 10/18/16 21:00 10/19/16 19:55 (Custom Consult Pharmacy) 0 ml @ 0 mls/hr UNSCH OTHER 10/18/16 16:30 A/P Assessment and Plan Patient is a 41-year-old female with a PMH of HTN, ESRD on HD M/W/F and HIV ( CD4 35 on 06/24/13, HIV RNA undetectable) on HAART who presented to the ER w/ complaints of generalized malaise, fever and chills x3 days. Sepsis secondary to Catheter Associated Bacteremia with MRSA: Met sepsis criteria with Tmax 101.6, tachycardia HR 116, source-bacteremia. + Immunocompromised, h/o HIV on HAART. +Right Chest HD Cath. S/p IVFs. - Blood Cultures 10/12 positive for MRSA, Enterococcus Bacteremia. Review blood cultures from 10/16 also growing MRSA. - Consulted infectious disease, appreciate recommendations. Continue IV Vanco with dialysis. Ampicillin added 10/18/16. - Pain control with Mathews prn and IV morphine prn - Successful vas catheter placement 10/14/16 - Catheter tip culture MRSA, as per ID specialist Persistent MRSA, Enterococcus Bacteremia Persistent despite cath removal, septic thrombophlebitis ? by ID specialist, Endocarditis Cath related Sepsis, recommended to continue Vancomycin, Ampicillin, Started on Rifampin oral for synergy Doppler UE bilaterally r/o septic thrombophlebitis, echocardiogram, HIV: Undetectable. Currently on HAART, resume home medications. Continue outpatient f/up with ID. ESRD on HD: M/W/F. Follows w/ Dr. Rangel. - Nephrology following to resume HD. Will need PermCath placed for outpatient dialysis. Awaiting negative cultures. - AV fistula placed in August 2016. Not yet ready for use. - Vancomycin with dialysis per ID. HTN: Held BP meds secondary to hypotension in setting of sepsis. - Restart meds if BP elevated. Currently normotensive. - Continue to monitor. Anemia, macrocytic - Possibly related to chronic disease, end-stage renal disease. - Monitor trend - Epo as needed per nephrology. Constipation - Miralax daily - MOM PRN - add lactulose. DVT Prophylaxis: Heparin sq Discussed with Patient No changes to anterior assessment. Discharge Planning Awaiting ID and nephrology clearance Papo Dunham MD Oct 20, 2016 12:18
[2016-10-20 16:00] VITALS: BP 106/67; PULSE 81; RESP 18; TEMP 98.9; O2SAT 96
[2016-10-20 20:00] VITALS: BP 116/58; PULSE 70; PULSE 73; RESP 18; TEMP 97.5; O2SAT 100
[2016-10-20] MEDS: DOLUTEGRAVIR SODIUM 50 MG TAB PO SCH (20:34)
[2016-10-20] MEDS: RIFAMPIN 150 MG CAP PO SCH (20:34)
[2016-10-20] MEDS: RILPIVIRINE 25 MG TAB PO SCH (20:34)
[2016-10-21] VITALS: BP 115/63; PULSE 75; RESP 16; TEMP 97.7; O2SAT 99
[2016-10-21 04:00] VITALS: BP 113/62; PULSE 78; RESP 16; TEMP 97.6; O2SAT 99
[2016-10-21] MEDS: AMPICILLIN INJ 2,000 MG in SODIUM CHLORIDE 0.9% INJ 100 ML IV SCH ×2 (05:06→18:06)
[2016-10-21 08:00] VITALS: BP 148/70; PULSE 78; PULSE 85; RESP 18; TEMP 98.7; O2SAT 98
[2016-10-21] MEDS: LABETALOL HCL 300 MG TAB PO SCH ×3 (09:00→18:12)
[2016-10-21] MEDS: LACTIC ACID (AMMONIUM LACTATE) 12% LOTION 225 GM BTL TOPICAL SCH ×2 (09:00→20:08)
[2016-10-21] MEDS: LISINOPRIL 20 MG TAB PO SCH ×2 (09:00→20:08)
[2016-10-21] MEDS: HEPARIN SODIUM - SQ 10,000 UNITS/ML VIAL SQ SCH ×2 (09:00→20:08)
[2016-10-21] MEDS: POLYETHYLENE GLYCOL 17 GM PKG PO SCH (09:00)
[2016-10-21] MEDS: VITAMIN B CMPLX/VITC/FOLIC AC CAP PO SCH (09:00)
--- NOTE | 2016-10-21 09:54 | HHI.NPPN ---
Subjective Renal Failure: Chronic, End Stage Renal Disease Interval History Seen during dialysis. She is afebrile. Most recent blood cultures are negative. (Vero Ocampo) Review of Systems Gastrointestinal Gastrointestinal: Constipation GI Remarks resolving constipation (Vero Ocampo) Objective Data Data 10/20/16 10/21/16 19:00 07:00 Intake Total 480 ml 720 ml Output Total 0 ml Balance 480 ml 720 ml Intake Oral 480 ml 720 ml Output Urine Total 0 ml # Voids 3 # Bowel Movements 1 0 Vital Signs Date Time Temp Pulse Resp B/P Pulse Ox O2 Delivery O2 Flow Rate FiO2 10/21/16 08:00 98.7 78 18 148/70 98 10/21/16 04:00 97.6 78 16 113/62 99 10/21/16 00:00 97.7 75 16 115/63 99 10/20/16 20:00 97.5 73 18 116/58 100 10/20/16 20:00 70 10/20/16 19:00 Room Air 10/20/16 16:00 98.9 81 18 106/67 96 10/20/16 12:00 98.0 98 18 146/91 96 (Vero Ocampo) -: 10/19/16 0500 10/19/16 0500 Tubes & Lines: Perma-Cath (Vero Ocampo) Physical Exam General Appearance: No Acute Distress, Comfortable, Malnourished (Vero Ocampo) Ears & Nose Ears & Nose Exam: Nasal Mucosa [place]den (Vero Ocampo) Throat Throat Exam: Oral Mucosa [place] & Moist (Vero Ocampo) Neck Neck Exam: Neck Supple (Vero Ocampo) Pulmonary Resp Exam: Clear Bilaterally, Breath Sounds Equal, No Distress (Vero Ocampo) Cardiology CV Exam: Regular, Normal Sinus Rhythm (Vero Ocampo) Gastrointestinal/Abdomen GI Exam: Soft, Non-Tender, Bowel Sounds Present, Positive Bowel Movement ( Vero Ocampo) Musculoskeletal MS Exam: Joints Intact, Normal Gait, Normal Tone, Good Strength (Vero Ocampo) Integumentary Skin Exam: Clear, Warm, Dry, Intact (Vero Ocampo) Extremeties Extremities Exam: No Edema, Pedal Pulses Palpable (Vero Ocampo) Neurologic Neuro Exam: Alert, Awake, Oriented, Speech Clear, Moving All Extremities ( Vero Ocampo) Psychiatric Psych Exam: Appropriate Responses (Vero Ocampo) Assessment/Plan Discussed Condition With: Patient Assessment Summary: Anemia of CKD, Proteinuria, Hypertension, End Stage Renal Disease Problem List: (1) ESRD (end stage renal disease) on dialysis Plan: seen during dialysis today on a 2K, 300 BFR, goal 3L UF continue dialysis MWF Monitor fluid and electrolytes status vascath in left IJ , functions well, has immature AVF in left arm Avoid IVF. Gadolinium is contraindicated no dietary protein restriction required; oral supplement started phosphorus level now elevated, Renvela started (2) Sepsis Plan: catheter related sepsis. s/p PermCath removal on admission; most recent cultures from 10/18 are negative to date ID following, on vancomycin with HD ; also ampicillin and now rifampin will need PermCath placed for outpatient dialysis after negative blood cultures x 72 hrs 2D echo ordered to rule out endocarditis (3) Anemia Plan: increase epogen to 10,000 units with dialysis Hb is lower (4) HIV (human immunodeficiency virus infection) Plan: Continue HAART therapy. (5) Hypertension Plan: BP improved continue Antihypertensive as ordered (Vero Ocampo) Problem List: (1) ESRD (end stage renal disease) on dialysis Plan: seen during dialysis today on a 2K, 300 BFR, goal 3L UF continue dialysis MWF Monitor fluid and electrolytes status vascath in left IJ , functions well, has immature AVF in left arm Avoid IVF. Gadolinium is contraindicated no dietary protein restriction required; oral supplement started phosphorus level now elevated, Renvela started (2) Sepsis Plan: catheter related sepsis. s/p PermCath removal on admission; most recent cultures from 10/18 are negative to date ID following, on vancomycin with HD ; also ampicillin and now rifampin will need PermCath placed for outpatient dialysis after negative blood cultures x 72 hrs 2D echo ordered to rule out endocarditis (3) Anemia Plan: increase epogen to 10,000 units with dialysis Hb is lower (4) HIV (human immunodeficiency virus infection) Plan: Continue HAART therapy. (5) Hypertension Plan: BP improved continue Antihypertensive as ordered Plan Patient was seen and examined during dialysis. Afebrile, blood culture from negative. If ID clears, get PermCath placed before discharge. (Diego Paige MD) Vero Ocampo Oct 21, 2016 09:54 Diego Paige MD Oct 21, 2016 11:38
[2016-10-21] MEDS: VANCOMYCIN INJ 1,000 MG in SODIUM CHLOR 0.9% 250 ML INJ 250 ML IV SCH (10:34)
[2016-10-21] MEDS: EPOETIN ALFA 10,000 UNITS/ML VIAL IV PRN (11:50)
[2016-10-21] MEDS: HEPARIN SODIUM - IV 10,000 UNITS/10 ML VIAL PRN (11:50)
[2016-10-21] MEDS: GENTAMICIN SULFATE (DIALYSIS USE ONLY) 20 MG/2 ML VIAL IV PRN (11:50)
[2016-10-21] MEDS: SODIUM CHLOR 0.9% 1000 ML INJ 1,000 ML IV PRN (11:50)
--- NOTE | 2016-10-21 12:49 | HHI.PR ---
Subjective Remarks This is a pleasant 41 y/o who came to ER 10/12 with fever, as per patient started after receiving Hemodialysis, having pain in the left lateral chest wall area and also dry cough , cultured Gram Positive cocci on four bottles, as we know she has ESRD on HD, has Right Permanent Catheter now removed, status post line replacement, Left UE AV fistula, HD on M/W/F, MRSA Enterococcus Bacteremia, Persistent despite cath removal, septic thrombophlebitis ? by ID specialist, Endocarditis? Cath related Sepsis, recommended to continue Vancomycin, Ampicillin, [id number] on Rifampin oral for synergy Doppler UE bilaterally r/o septic thrombophlebitis, echocardiogram, 10/21: Seen in her bedroom, discussed with nurse miss Rucker and with ID specialist Doctor Gabrielle Green recommended today to continue Vancomycin with Dialysis, continue Ampicillin, Discontinued Rifampin due to multiple drug interactions with HIV medicines, no Perm-cath until blood culture is clear for five days, No nausea, vomit or diarrhea, talking through the phone when I came in. Objective Vital Signs Date Time Temp Pulse Resp B/P Pulse Ox O2 Delivery O2 Flow Rate FiO2 10/21/16 08:00 85 10/21/16 08:00 98.7 78 18 148/70 98 10/21/16 08:00 96 Room Air 21 10/21/16 04:00 97.6 78 16 113/62 99 10/21/16 00:00 97.7 75 16 115/63 99 10/20/16 20:00 97.5 73 18 116/58 100 10/20/16 20:00 70 10/20/16 19:00 Room Air 10/20/16 16:00 98.9 81 18 106/67 96 I/O 10/20/16 10/20/16 10/20/16 10/21/16 10/21/16 10/21/16 07:00 15:00 23:00 07:00 15:00 23:00 Intake Total 345 ml 480 ml 480 ml 240 ml Output Total 0 ml 0 ml 0 ml 3500 ml Balance 345 ml 480 ml 480 ml 240 ml -3500 ml Intake Oral 240 ml 480 ml 480 ml 240 ml IV Total 105 ml Output Urine Total 0 ml 0 ml 0 ml Hemodialysis 3500 ml # Voids 3 # Bowel Movements 0 1 0 0 Result Diagram: 10/19/16 0500 10/19/16 0500 Imaging Last Impressions Upper Extremity Ultrasound 10/18/16 0000 Signed Impressions: Service Date/Time: Tuesday, October 18, 2016 16:53 - CONCLUSION: 1. No deep venous thrombosis identified. Left cephalic vein not clearly visualized. Fistula at the left between basilic vein and brachial artery. Doc Langley MD Catheter Placement X-Ray 10/14/16 1029 Signed Impressions: Service Date/Time: Friday, October 14, 2016 13:51 - CONCLUSION: Uncomplicated line placement as above. Mason Moore MD Central Venous Line 10/14/16 0000 Signed Impressions: Service Date/Time: Friday, October 14, 2016 00:00 - CONCLUSION: Uncomplicated Permcath removal. Mason Moore MD Chest X-Ray 10/12/16 1618 Signed Impressions: Service Date/Time: Wednesday, October 12, 2016 16:14 - CONCLUSION: No evidence of acute cardiopulmonary disease. Chet Pang MD Procedures None Other Results Laboratory Tests Test 10/18/16 10/18/16 10/19/16 08:05 18:44 05:00 Neutrophils (%) (Auto) 70.7 % Lymphocytes (%) (Auto) 17.7 % Monocytes (%) (Auto) 7.7 % Eosinophils (%) (Auto) 3.3 % Basophils (%) (Auto) 0.6 % Neutrophils # (Auto) 11.2 TH/MM3 Lymphocytes # (Auto) 2.8 TH/MM3 Monocytes # (Auto) 1.2 TH/MM3 Eosinophils # (Auto) 0.5 TH/MM3 Basophils # (Auto) 0.1 TH/MM3 CBC Comment DIFF FINAL Differential Comment Phosphorus Level 7.4 MG/DL Albumin 2.2 GM/DL Random Vancomycin Level 37.7 COMMENT White Blood Count 15.5 TH/MM3 Red Blood Count 2.58 MIL/MM3 Hemoglobin 8.8 GM/DL Hematocrit 25.6 % Mean Corpuscular Volume 99.4 FL Mean Corpuscular Hemoglobin 34.3 PG Mean Corpuscular Hemoglobin 34.5 % Concent Red Cell Distribution Width 16.0 % Platelet Count 275 TH/MM3 Mean Platelet Volume 9.5 FL Sodium Level 133 MEQ/L Potassium Level 4.2 MEQ/L Chloride Level 90 MEQ/L Carbon Dioxide Level 28.3 MEQ/L Anion Gap 15 MEQ/L Blood Urea Nitrogen 41 MG/DL Creatinine 6.54 MG/DL Estimat Glomerular Filtration 8 ML/MIN Rate Random Glucose 87 MG/DL Calcium Level 8.9 MG/DL Magnesium Level 2.6 MG/DL Objective Remarks GENERAL: This is a thinly appearing, well-developed patient, in no apparent distress. SKIN: Warm and dry. HEENT: Normocephalic. Pupils equal round and reactive. Nose without bleeding. Airway patent. NECK: Trachea midline. No JVD. Supple. Vascular catheter in the right IJ. CARDIOVASCULAR: Regular rate and rhythm without murmurs, gallops, or rubs. RESPIRATORY: Clear to auscultation. Breath sounds equal bilaterally. No wheezes , rales, or rhonchi. GASTROINTESTINAL: Abdomen soft, non-tender, nondistended. Bowel Sounds hypoactive. MUSCULOSKELETAL: Extremities without clubbing, cyanosis, or edema. NEUROLOGICAL: Awake and alert. No focal neuro deficit. Moves all extremities. Normal speech. PSYCH: Mood and affect appropriate. Medications and IVs Current Medications Medications (Trade) Dose Ordered Sig/Chinmay Route Start Time Stop Time Status Last Admin (NS Flush) 2 ml UNSCH PRN IV FLUSH 10/12/16 19:30 10/17/16 17:55 (NS Flush) 2 ml BID IV FLUSH 10/12/16 21:00 10/20/16 20:37 (Zofran Inj) 4 mg Q6H PRN IVP 10/12/16 19:30 10/12/16 23:31 (Heparin Inj) 5,000 units Q12H SQ 10/13/16 09:00 10/20/16 20:37 (Tylenol) 650 mg Q6H PRN PO 10/12/16 19:30 10/17/16 05:58 ([place] 5-325 Mg) 1 tab Q4H PRN PO 10/12/16 19:30 10/13/16 20:10 (Morphine Inj) 2 mg Q3H PRN IV 10/12/16 19:30 10/14/16 06:22 (Cass-Colace) 1 tab BID PO 10/12/16 21:00 10/20/16 09:22 (Milk Of Magnesia Liq) 30 ml Q12H PRN PO 10/12/16 19:30 10/14/16 21:08 (Senokot) 17.2 mg Q12H PRN PO 10/12/16 19:30 (Dulcolax Supp) 10 mg DAILY PRN RECTAL 10/12/16 19:30 (Lactulose Liq) 30 ml DAILY PRN PO 10/12/16 19:30 (Norvasc) 10 mg DAILY PO 10/13/16 09:00 10/19/16 08:49 (Ecotrin Ec) 81 mg DAILY PO 10/13/16 09:00 10/20/16 09:23 (Lipitor) 10 mg MOWEFR PO 10/14/16 20:00 10/18/16 20:34 (Nephrocaps) 1 cap DAILY PO 10/13/16 09:00 10/20/16 09:00 (Trandate) 300 mg TID PO 10/13/16 09:00 10/20/16 15:44 (Prinivil) 20 mg BID PO 10/12/16 21:00 10/20/16 20:35 Valacyclovir HCl 1000 mg 1,000 mg DAILY PO 10/13/16 09:00 10/20/16 09:21 (NS 1000 ml Inj) 1,000 ml @ 0 mls/hr Q0M PRN IV 10/13/16 10:04 10/21/16 11:50 Heparin Sodium (Porcine) 8000 units 8,000 units UNSCH PRN IVF 10/13/16 10:15 Sodium Chloride 1,000 ml @ 200 mls/hr Q5H PRN IV 10/13/16 10:04 (NS 1000 ml Inj) 1,000 ml @ 0 mls/hr Q0M PRN IV 10/13/16 10:04 (Mannitol Inj) 12.5 gm UNSCH PRN IV 10/13/16 10:15 (Albumin 25% Inj) 25 gm UNSCH PRN IV 10/13/16 10:15 (NS Flush) 5 ml UNSCH PRN IV FLUSH 10/13/16 10:15 (Heparin Inj) UNSCH PRN .XX 10/13/16 10:15 10/21/16 11:50 (Gentamicin (Dialysis) Inj) 20 mg UNSCH PRN IV 10/13/16 10:15 10/21/16 11:50 (Zofran Inj) 4 mg UNSCH PRN IV 10/13/16 10:15 (Tylenol) 650 mg UNSCH PRN PO 10/13/16 10:15 10/18/16 16:13 (Benadryl) 25 mg UNSCH PRN PO 10/13/16 10:15 10/15/16 06:08 (Nitrostat Sl) 0.4 mg UNSCH PRN SL 10/13/16 10:15 (Catapres) 0.1 mg UNSCH PRN PO 10/13/16 10:15 (Gelfoam 12 Mm/7 Mm Top) 1 foam UNSCH PRN TOP 10/13/16 10:15 (Epivir) 150 mg HS PO 10/13/16 21:00 10/20/16 20:35 (Edurant) 25 mg HS PO 10/13/16 21:00 10/20/16 20:34 (Lac-Hydrin 12% Lotion) 1 applic BID TOPICAL 10/14/16 12:00 10/20/16 20:38 ([place] 10-325 Mg) 1 tab Q4H PRN PO 10/14/16 11:00 10/15/16 22:46 (NS Flush) UNSCH PRN IVF 10/14/16 14:15 (Heparin Inj) UNSCH PRN IV FLUSH 10/14/16 14:15 (Miralax) 17 gm DAILY PO 10/15/16 15:30 10/19/16 08:50 Lactulose 30 ml 30 ml DAILY PO 10/16/16 09:15 10/18/16 08:23 (Ampicillin Inj/ NS Inj) 100 ml @ 400 mls/hr Q12H IV 10/17/16 18:00 10/21/16 05:06 Rifampin 600 mg 600 mg HS PO 10/18/16 21:00 10/20/16 20:34 (Custom Consult Pharmacy) 0 ml @ 0 mls/hr UNSCH OTHER 10/18/16 16:30 (Epogen Inj) 10,000 units UNSCH PRN IV 10/21/16 09:15 10/21/16 11:50 (Renvela) 800 mg TIDAC PO 10/21/16 12:00 A/P Assessment and Plan Patient is a 41-year-old female with a PMH of HTN, ESRD on HD M/W/F and HIV ( CD4 35 on 06/24/13, HIV RNA undetectable) on HAART who presented to the ER w/ complaints of generalized malaise, fever and chills x3 days. Sepsis secondary to Catheter Associated Bacteremia with MRSA: Met sepsis criteria with Tmax 101.6, tachycardia HR 116, source-bacteremia. + Immunocompromised, h/o HIV on HAART. +Right Chest HD Cath. S/p IVFs. - Blood Cultures 10/12 positive for MRSA, Enterococcus Bacteremia. Review blood cultures from 10/16 also growing MRSA. - Consulted infectious disease, appreciate recommendations. Continue IV Vanco with dialysis. Ampicillin added 10/18/16. Discontinued Rifampin - Successful vas catheter placement 10/14/16 - Catheter tip culture MRSA, as per ID specialist Persistent MRSA, Enterococcus Bacteremia Persistent despite cath removal, septic thrombophlebitis ? by ID specialist, Endocarditis Cath related Sepsis, recommended to continue Vancomycin, Ampicillin, Started on Rifampin oral for synergy Doppler UE bilaterally r/o septic thrombophlebitis, echocardiogram, HIV: Undetectable. Currently on HAART, resume home medications. Continue outpatient f/up with ID. ESRD on HD: M/W/F. Follows w/ Dr. Rangel. - Nephrology following to resume HD. Will need PermCath placed for outpatient dialysis. Awaiting negative cultures. - AV fistula placed in August 2016. Not yet ready for use. - Vancomycin with dialysis per ID. and No Perm cath until blood cultures negative for five days. HTN: Held BP meds secondary to hypotension in setting of sepsis. - Controlled. Anemia, macrocytic - Possibly related to chronic disease, end-stage renal disease. - Monitor trend - Epo as needed per nephrology. Constipation Improved. DVT Prophylaxis: Heparin sq Discussed with Patient, all questions answered to the best of my abilities. Discussed with Doctor Gabrielle Green ID specialist appreciated input and recommendations. Discharge Planning Awaiting ID and nephrology clearance Papo Dunham MD Oct 21, 2016 12:48
[2016-10-21] MEDS: LACTULOSE SYRUP 20 GM/30 ML CUP PO SCH (13:43)
[2016-10-21] MEDS: SEVELAMER CARBONATE 800 MG TAB PO SCH ×2 (13:45→18:12)
[2016-10-21] MEDS: ASPIRIN EC 81 MG TABEC PO SCH (13:45)
[2016-10-21] MEDS: DOCUSATE SODIUM 50 MG/SENNA 8.6 MG TAB PO SCH ×2 (13:45→20:07)
[2016-10-21] MEDS: SODIUM CHLORIDE 0.9% FLUSH 10 ML FLUSH IV FLUSH SCH ×3 (13:47→20:16)
--- NOTE | 2016-10-21 14:47 | HHI.IDPN ---
Subjective Subjective Remarks Ms Wynn is a 41 y/o AAF with PMHx of HIV on HAART, ESRD on HD using Right permacath (now removed), s/p line replacement using ? same tunnel. Also has a Left UE AV fistula site which is not mature. Persistent bacteremia despite cath removal and adjustment of antibiotics. Concern for endocarditis or septic thrombophlebitis. Overnight events reviewed. Repeat BCX positive No rash No diarrhea No chest pain or SOB. No N/V tolerating HIV meds. HD Mon, Wed, Fri. Recd vanco in HD. PAST MEDICAL HISTORY: 1. End-stage renal disease. 2. HIV disease managed by the outpatient physician and the patient noted undetectable viral load. 3. Hypertension. 4. AV fistula for hemodialysis placed in August of 2016 (not yet ready for use). 5. Bilateral cataracts. Antibiotics Vanco IV in HD Rifampin oral HAART Lines Line sites with no e.o infection. Past Medical History reviewed. Allergies: Coded Allergies: Iron Dextran (Verified Allergy, Severe, IRON INJECTIONS, 09/22/16) PT STATES THEY HAVE NOW CHANGED BRANDS OF IRON & SHE IS ABLE TO TAKE THE NEW BRAND OF IRON *MDRO Multi-Drug Resistant Organism (Verified Adverse Reaction, Unknown, ) MRSA PCR 09/07/16 Positive [facility] - E. cloacae (peritoneal fluid) - 05/04/16 MRSA (blood) 10/12/16, (cath tip) 10/14/16 Objective . Vital Signs Date Time Temp Pulse Resp B/P Pulse Ox O2 Delivery O2 Flow Rate FiO2 10/21/16 08:00 85 10/21/16 08:00 98.7 78 18 148/70 98 10/21/16 08:00 96 Room Air 21 10/21/16 04:00 97.6 78 16 113/62 99 10/21/16 00:00 97.7 75 16 115/63 99 10/20/16 20:00 97.5 73 18 116/58 100 10/20/16 20:00 70 10/20/16 19:00 Room Air 10/20/16 16:00 98.9 81 18 106/67 96 10/20/16 10/20/16 10/21/16 14:59 22:59 06:59 Intake Total 480 ml 480 ml 240 ml Output Total 0 ml 0 ml Balance 480 ml 480 ml 240 ml Intake Oral 480 ml 480 ml 240 ml Output Urine Total 0 ml 0 ml # Voids 3 # Bowel Movements 1 0 0 Imaging Last Impressions Upper Extremity Ultrasound 10/18/16 0000 Signed Impressions: Service Date/Time: Tuesday, October 18, 2016 16:53 - CONCLUSION: 1. No deep venous thrombosis identified. Left cephalic vein not clearly visualized. Fistula at the left between basilic vein and brachial artery. Doc Langley MD Catheter Placement X-Ray 10/14/16 1029 Signed Impressions: Service Date/Time: Friday, October 14, 2016 13:51 - CONCLUSION: Uncomplicated line placement as above. Mason Moore MD Central Venous Line 10/14/16 0000 Signed Impressions: Service Date/Time: Friday, October 14, 2016 00:00 - CONCLUSION: Uncomplicated Permcath removal. Mason Moore MD Chest X-Ray 10/12/16 1618 Signed Impressions: Service Date/Time: Wednesday, October 12, 2016 16:14 - CONCLUSION: No evidence of acute cardiopulmonary disease. Chet Pang MD Physical Exam GENERAL: No acute distress. Thin built, cachectic appearing female with temporal wasting. HEAD, EYES, EARS, NOSE, THROAT: Pupils reactive to light. No icterus. Oropharynx moist mucosa. No lesions. NECK: Supple without adenopathy. No swelling. LUNGS: Clear to auscultation. HEART: Regular S1 and S2 without murmurs, rubs or gallops. ABDOMEN: Bowel sounds present, soft, no tenderness appreciated. EXTREMITIES: No clubbing, cyanosis or edema. SKIN: No rash. NEUROLOGIC: Nonfocal. PSYCHIATRIC: Calm and cooperative. Right HD cath with no e.o infection. Left UE AV fistula site with no e.o infection Assessment & Plan Remarks 1. Sepsis due to MRSA. Enterococcus bacteremia. Appears persistent despite cath removal. ? Septic thrombophlebitis, ? Endocarditis ? seeding of AV fistula. 2. Catheter-related sepsis. Catheter culture had MRSA and enterococcus. Dialysis catheter removed. 3. End-stage renal disease on HD Fri,Fri, Fri. 4. HIV disease, which appears stable on current HAART therapy. (Sees ) RECOMMENDATIONS: Continue to give vancomycin IV with dialysis. Continue Ampicillin IV. Discontinue Rifampin due to multiple drug interactions with HIV medications. Follow repeat blood cultures. Follow clinically. Doppler UE bilaterally r/o septic thrombophlebitis. 2D ECHO r/o endocarditis. No permacath until blood culture is clear for 5 days. May have delayed positive cultures at this point as is partially treated. will resume care in am. Gabrielle Green MD Oct 21, 2016 14:47
[2016-10-21 16:00] VITALS: BP 138/80; PULSE 92; RESP 18; TEMP 98.9; O2SAT 99
[2016-10-21] MEDS: valACYclovir HCL 500 MG TAB PO SCH (18:06)
[2016-10-21 20:00] VITALS: BP 138/69; PULSE 95; PULSE 97; RESP 20; TEMP 98.8; O2SAT 94
[2016-10-21] MEDS: DOLUTEGRAVIR SODIUM 50 MG TAB PO SCH (20:07)
[2016-10-21] MEDS: RILPIVIRINE 25 MG TAB PO SCH (20:07)
[2016-10-22 04:00] VITALS: BP 141/72; PULSE 97; RESP 18; TEMP 98.3; O2SAT 99
[2016-10-22] MEDS: AMPICILLIN INJ 2,000 MG in SODIUM CHLORIDE 0.9% INJ 100 ML IV SCH ×2 (05:55→18:38)
[2016-10-22 08:00] VITALS: BP 134/77; PULSE 86; PULSE 93; RESP 18; TEMP 98.9; O2SAT 99
[2016-10-22] MEDS: HEPARIN SODIUM - SQ 10,000 UNITS/ML VIAL SQ SCH ×2 (09:00→20:57)
[2016-10-22] MEDS: LACTULOSE SYRUP 20 GM/30 ML CUP PO SCH (09:00)
[2016-10-22] MEDS: POLYETHYLENE GLYCOL 17 GM PKG PO SCH (09:00)
[2016-10-22] MEDS: LABETALOL HCL 300 MG TAB PO SCH ×3 (09:00→18:38)
[2016-10-22] MEDS: LACTIC ACID (AMMONIUM LACTATE) 12% LOTION 225 GM BTL TOPICAL SCH ×2 (09:00→20:57)
[2016-10-22] MEDS: DOCUSATE SODIUM 50 MG/SENNA 8.6 MG TAB PO SCH ×2 (09:00→20:57)
[2016-10-22] MEDS: VITAMIN B CMPLX/VITC/FOLIC AC CAP PO SCH (09:00)
[2016-10-22] MEDS ORDERED: DEXT 5%-NACL 0.9% 1000 ML INJ 1,000 ML IV SCH (11:45)
[2016-10-22 12:00] VITALS: BP 134/82; PULSE 89; RESP 18; TEMP 98.2; O2SAT 100
[2016-10-22] MEDS: SEVELAMER CARBONATE 800 MG TAB PO SCH ×3 (12:00→18:38)
--- NOTE | 2016-10-22 12:07 | HHI.NPPN ---
Subjective Renal Failure: Chronic, End Stage Renal Disease Interval History She is afebrile. Recent blood cultures are still negative. dialyzed yesterday. (Vero Ocampo) Review of Systems Gastrointestinal Gastrointestinal: Constipation GI Remarks resolving constipation (Vero Ocampo) Objective Data Data 10/21/16 10/22/16 19:00 07:00 Intake Total 240 ml 480 ml Output Total 3500 ml Balance -3260 ml 480 ml Intake Oral 240 ml 480 ml Stool Total 0 ml Hemodialysis 3500 ml # Voids 0 2 # Bowel Movements 0 Vital Signs Date Time Temp Pulse Resp B/P Pulse Ox O2 Delivery O2 Flow Rate FiO2 10/22/16 08:00 98.9 93 18 134/77 99 10/22/16 04:00 98.3 97 18 141/72 99 10/22/16 04:00 Room Air 10/22/16 00:00 Room Air 10/21/16 20:00 98.8 97 20 138/69 94 10/21/16 20:00 95 10/21/16 20:00 Room Air 10/21/16 16:00 98.9 92 18 138/80 99 (Vero Ocampo) -: 10/19/16 0500 10/19/16 0500 Imaging Last Impressions Upper Extremity Ultrasound 10/18/16 0000 Signed Impressions: Service Date/Time: Tuesday, October 18, 2016 16:53 - CONCLUSION: 1. No deep venous thrombosis identified. Left cephalic vein not clearly visualized. Fistula at the left between basilic vein and brachial artery. Doc Langley MD Catheter Placement X-Ray 10/14/16 1029 Signed Impressions: Service Date/Time: Friday, October 14, 2016 13:51 - CONCLUSION: Uncomplicated line placement as above. Mason Moore MD Central Venous Line 10/14/16 0000 Signed Impressions: Service Date/Time: Friday, October 14, 2016 00:00 - CONCLUSION: Uncomplicated Permcath removal. Mason Moore MD Chest X-Ray 10/12/16 1618 Signed Impressions: Service Date/Time: Wednesday, October 12, 2016 16:14 - CONCLUSION: No evidence of acute cardiopulmonary disease. Chet Pang MD Tubes & Lines: Perma-Cath (Vero cOampo) Physical Exam General Appearance: No Acute Distress, Comfortable, Malnourished (Vero Ocampo) Ears & Nose Ears & Nose Exam: Nasal Mucosa Talty (Vero Ocampo) Throat Throat Exam: Oral Mucosa Talty & Moist (Vero Ocampo) Neck Neck Exam: Neck Supple (Vero Ocampo) Pulmonary Resp Exam: Clear Bilaterally, Breath Sounds Equal, No Distress (Vero Ocampo) Cardiology CV Exam: Regular, Normal Sinus Rhythm (Vero Ocampo) Gastrointestinal/Abdomen GI Exam: Soft, Non-Tender, Bowel Sounds Present, Positive Bowel Movement ( Vero Ocampo) Musculoskeletal MS Exam: Joints Intact, Normal Gait, Normal Tone, Good Strength (Vero Ocampo) Integumentary Skin Exam: Clear, Warm, Dry, Intact (Vero Ocampo) Extremeties Extremities Exam: No Edema, Pedal Pulses Palpable (Vero Ocampo) Neurologic Neuro Exam: Alert, Awake, Oriented, Speech Clear, Moving All Extremities ( Vero Ocampo) Psychiatric Psych Exam: Appropriate Responses (Vero Ocampo) Assessment/Plan Discussed Condition With: Patient Assessment Summary: Anemia of CKD, Proteinuria, Hypertension, End Stage Renal Disease Problem List: (1) ESRD (end stage renal disease) on dialysis Plan: Continue dialysis MWF, 3500 ml UF Monitor fluid and electrolytes status check renal panel tomorrow vascath in left IJ , functions well, has immature AVF in left arm Avoid IVF. Gadolinium is contraindicated no dietary protein restriction required; oral supplement started phosphorus level was elevated, continue Renvela (2) Sepsis Plan: catheter related sepsis. s/p PermCath removal on admission; most recent cultures from 10/18 are negative to date; exchange catheter on (with potential discharge) if cultures continue to be negative ID following, on vancomycin with HD ; also ampicillin ; rifampin was stopped 2D echo ordered to rule out endocarditis (3) Anemia Plan: continue epogen (4) HIV (human immunodeficiency virus infection) Plan: Continue HAART therapy. (5) Hypertension Plan: BP improved continue Antihypertensive as ordered (Vero Ocampo) Plan patient was seen and examined. Discussed with ID. Repeat culture results are so far negative. PermCath placement when cleared by ID. Had echo. (Diego Paige MD) Vero Ocampo Oct 22, 2016 12:07 Diego Paige MD Oct 22, 2016 17:35
--- NOTE | 2016-10-22 13:18 | HHI.IDPN ---
Note Infectious Disease Note Notes reviewed. Patient feel okay. Denies chills, sweats, nausea or vomiting. Blood culture 10/18 - no growth 4 days. PAST MEDICAL HISTORY: 1. End-stage renal disease. 2. HIV disease managed by the outpatient physician and the patient noted undetectable viral load. 3. Hypertension. 4. AV fistula for hemodialysis placed in August of 2016 (not yet ready for use). 5. Bilateral cataracts. ALLERGIES: IRON DEXTRAN. OBJECTIVE: Vital Signs Date Time Temp Pulse Resp B/P Pulse Ox O2 Delivery O2 Flow Rate FiO2 10/22/16 12:00 98.2 89 18 134/82 100 10/22/16 08:00 98.9 93 18 134/77 99 10/22/16 04:00 98.3 97 18 141/72 99 10/22/16 04:00 Room Air 10/22/16 00:00 Room Air 10/21/16 20:00 98.8 97 20 138/69 94 10/21/16 20:00 95 10/21/16 20:00 Room Air 10/21/16 16:00 98.9 92 18 138/80 99 10/21/16 10/21/16 10/22/16 14:59 22:59 06:59 Intake Total 240 ml 120 ml 360 ml Output Total 3500 ml Balance -3260 ml 120 ml 360 ml Intake Oral 240 ml 120 ml 360 ml Stool Total 0 ml Hemodialysis 3500 ml # Voids 0 1 1 # Bowel Movements 0 0 Microbiology Date/Time Procedure Status Source Growth 10/12/16 16:20 Aerobic Blood Culture - Preliminary Resulted Blood Peripheral S. Aureus Mrsa Group D Enterococcus 10/12/16 16:20 Anaerobic Blood Culture - Preliminary Resulted S. Aureus Mrsa 10/12/16 16:30 Aerobic Blood Culture - Preliminary Resulted Blood Peripheral S. Aureus Mrsa 10/12/16 16:30 Anaerobic Blood Culture - Preliminary Resulted S. Aureus Mrsa Group D Enterococcus 10/12/16 17:35 Influenza Types A,B Antigen (JAELYN) - Final Complete Nasal Washing NEGATIVE FOR FLU A AND B ANTIGEN.... PHYSICAL EXAMINATION: GENERAL: No acute distress. HEENT: Pupils reactive to light. No icterus. Oropharynx moist mucosa. No lesions. NECK: Supple without adenopathy. LUNGS: Clear to auscultation. HEART: Regular S1 and S2 without murmurs, rubs or gallops. ABDOMEN: Bowel sounds present, soft, no tenderness. EXTREMITIES: No clubbing, cyanosis or edema. SKIN: No rash. Warm and dry. NEUROLOGIC: Nonfocal. PSYCHIATRIC: Calm and cooperative. IMPRESSION: 1. Sepsis due to MRSA. Enterococcus. Persistent positive culture. R?O endocarditis. 2D ECHO result pending. 2. Catheter-related sepsis. Catheter culture had MRSA and enterococcus. Dialysis catheter removed. Repeat culture in progress. 3. End-stage renal disease. 4. HIV disease, which appears stable on current HAART therapy. RECOMMENDATIONS: 1. Continue to give the vancomycin with dialysis. 2. Continue Ampicillin. 3. Monitor clinical status. 4. Follow repeat blood culture until completion. 5. No permacath until blood culture is negative 5 days and echo negative. Discussed with DR. Paige. Red Gayle MD Oct 22, 2016 13:17
[2016-10-22] MEDS: valACYclovir HCL 500 MG TAB PO SCH (13:37)
[2016-10-22] MEDS: ASPIRIN EC 81 MG TABEC PO SCH (13:38)
[2016-10-22] MEDS: LISINOPRIL 20 MG TAB PO SCH ×2 (13:38→20:57)
[2016-10-22] MEDS: SODIUM CHLORIDE 0.9% FLUSH 10 ML FLUSH IV FLUSH SCH ×2 (13:41→20:57)
[2016-10-22 16:00] VITALS: BP 134/80; PULSE 94; RESP 18; TEMP 98.8; O2SAT 98
--- NOTE | 2016-10-22 16:15 | HHI.PR ---
Subjective Remarks This is a pleasant 41 y/o who came to ER 10/12 with fever, as per patient started after receiving Hemodialysis, having pain in the left lateral chest wall area and also dry cough , cultured Gram Positive cocci on four bottles, as we know she has ESRD on HD, has Right Permanent Catheter now removed, status post line replacement, Left UE AV fistula, HD on M/W/F, MRSA Enterococcus Bacteremia, Persistent despite cath removal, septic thrombophlebitis ? by ID specialist, Endocarditis? Cath related Sepsis, recommended to continue Vancomycin, Ampicillin, [id number] on Rifampin oral for synergy Doppler UE bilaterally r/o septic thrombophlebitis, echocardiogram, 10/21: Seen in her bedroom, discussed with nurse miss Rucker and with ID specialist Doctor Gabrielle Green recommended today to continue Vancomycin with Dialysis, continue Ampicillin, Discontinued Rifampin due to multiple drug interactions with HIV medicines, no Perm-cath until blood culture is clear for five days, 10/22: Stable in her bedroom again today talking through her phone when I came in but smiling no complaint, no nausea, vomit or diarrhea Nephrology specialist saw her today. Echocardiogram to rule out Endocarditis asked by ID specialist yesterday, Objective Vital Signs Date Time Temp Pulse Resp B/P Pulse Ox O2 Delivery O2 Flow Rate FiO2 10/22/16 12:00 98.2 89 18 134/82 100 10/22/16 08:00 96 Room Air 21 10/22/16 08:00 98.9 93 18 134/77 99 10/22/16 08:00 86 10/22/16 04:00 98.3 97 18 141/72 99 10/22/16 04:00 Room Air 10/22/16 00:00 Room Air 10/21/16 20:00 98.8 97 20 138/69 94 10/21/16 20:00 95 10/21/16 20:00 Room Air I/O 10/21/16 10/21/16 10/21/16 10/22/16 10/22/16 10/22/16 07:00 15:00 23:00 07:00 15:00 23:00 Intake Total 240 ml 240 ml 120 ml 360 ml Output Total 0 ml 3500 ml Balance 240 ml -3260 ml 120 ml 360 ml Intake Oral 240 ml 240 ml 120 ml 360 ml Output Urine Total 0 ml Stool Total 0 ml Hemodialysis 3500 ml # Voids 0 1 1 # Bowel Movements 0 0 0 Result Diagram: 10/19/16 0500 10/19/16 0500 Imaging Last Impressions Upper Extremity Ultrasound 10/18/16 0000 Signed Impressions: Service Date/Time: Tuesday, October 18, 2016 16:53 - CONCLUSION: 1. No deep venous thrombosis identified. Left cephalic vein not clearly visualized. Fistula at the left between basilic vein and brachial artery. Doc Langley MD Catheter Placement X-Ray 10/14/16 1029 Signed Impressions: Service Date/Time: Friday, October 14, 2016 13:51 - CONCLUSION: Uncomplicated line placement as above. Mason Moore MD Central Venous Line 10/14/16 0000 Signed Impressions: Service Date/Time: Friday, October 14, 2016 00:00 - CONCLUSION: Uncomplicated Permcath removal. Mason Moore MD Chest X-Ray 10/12/16 1618 Signed Impressions: Service Date/Time: Wednesday, October 12, 2016 16:14 - CONCLUSION: No evidence of acute cardiopulmonary disease. Chet Pang MD Procedures None Other Results Laboratory Tests Test 10/18/16 10/18/16 10/19/16 08:05 18:44 05:00 Neutrophils (%) (Auto) 70.7 % Lymphocytes (%) (Auto) 17.7 % Monocytes (%) (Auto) 7.7 % Eosinophils (%) (Auto) 3.3 % Basophils (%) (Auto) 0.6 % Neutrophils # (Auto) 11.2 TH/MM3 Lymphocytes # (Auto) 2.8 TH/MM3 Monocytes # (Auto) 1.2 TH/MM3 Eosinophils # (Auto) 0.5 TH/MM3 Basophils # (Auto) 0.1 TH/MM3 CBC Comment DIFF FINAL Differential Comment Phosphorus Level 7.4 MG/DL Albumin 2.2 GM/DL Random Vancomycin Level 37.7 COMMENT White Blood Count 15.5 TH/MM3 Red Blood Count 2.58 MIL/MM3 Hemoglobin 8.8 GM/DL Hematocrit 25.6 % Mean Corpuscular Volume 99.4 FL Mean Corpuscular Hemoglobin 34.3 PG Mean Corpuscular Hemoglobin 34.5 % Concent Red Cell Distribution Width 16.0 % Platelet Count 275 TH/MM3 Mean Platelet Volume 9.5 FL Sodium Level 133 MEQ/L Potassium Level 4.2 MEQ/L Chloride Level 90 MEQ/L Carbon Dioxide Level 28.3 MEQ/L Anion Gap 15 MEQ/L Blood Urea Nitrogen 41 MG/DL Creatinine 6.54 MG/DL Estimat Glomerular Filtration 8 ML/MIN Rate Random Glucose 87 MG/DL Calcium Level 8.9 MG/DL Magnesium Level 2.6 MG/DL Objective Remarks GENERAL: This is a thinly appearing, well-developed patient, in no apparent distress. SKIN: Warm and dry. HEENT: Normocephalic. Pupils equal round and reactive. Nose without bleeding. Airway patent. NECK: Trachea midline. No JVD. Supple. Vascular catheter in the right IJ. CARDIOVASCULAR: Regular rate and rhythm without murmurs, gallops, or rubs. RESPIRATORY: Clear to auscultation. Breath sounds equal bilaterally. No wheezes , rales, or rhonchi. GASTROINTESTINAL: Abdomen soft, non-tender, nondistended. Bowel Sounds hypoactive. MUSCULOSKELETAL: Extremities without clubbing, cyanosis, or edema. NEUROLOGICAL: Awake and alert. No focal neuro deficit. Moves all extremities. Normal speech. PSYCH: Mood and affect appropriate. Medications and IVs Current Medications Medications (Trade) Dose Ordered Sig/Chinmay Route Start Time Stop Time Status Last Admin (NS Flush) 2 ml UNSCH PRN IV FLUSH 10/12/16 19:30 10/17/16 17:55 (NS Flush) 2 ml BID IV FLUSH 10/12/16 21:00 10/22/16 13:41 (Zofran Inj) 4 mg Q6H PRN IVP 10/12/16 19:30 10/12/16 23:31 (Heparin Inj) 5,000 units Q12H SQ 10/13/16 09:00 10/22/16 09:00 (Tylenol) 650 mg Q6H PRN PO 10/12/16 19:30 10/17/16 05:58 ([place] 5-325 Mg) 1 tab Q4H PRN PO 10/12/16 19:30 10/13/16 20:10 (Morphine Inj) 2 mg Q3H PRN IV 10/12/16 19:30 10/14/16 06:22 (Cass-Colace) 1 tab BID PO 10/12/16 21:00 10/21/16 20:07 (Milk Of Magnesia Liq) 30 ml Q12H PRN PO 10/12/16 19:30 10/14/16 21:08 (Senokot) 17.2 mg Q12H PRN PO 10/12/16 19:30 (Dulcolax Supp) 10 mg DAILY PRN RECTAL 10/12/16 19:30 (Lactulose Liq) 30 ml DAILY PRN PO 10/12/16 19:30 (Norvasc) 10 mg DAILY PO 10/13/16 09:00 10/22/16 13:37 (Ecotrin Ec) 81 mg DAILY PO 10/13/16 09:00 10/22/16 13:38 (Lipitor) 10 mg MOWEFR PO 10/14/16 20:00 10/18/16 20:34 (Nephrocaps) 1 cap DAILY PO 10/13/16 09:00 10/22/16 09:00 (Trandate) 300 mg TID PO 10/13/16 09:00 10/22/16 13:37 (Prinivil) 20 mg BID PO 10/12/16 21:00 10/22/16 13:38 (Valtrex) 1,000 mg DAILY PO 10/13/16 09:00 10/22/16 13:37 (Heparin Inj) 8,000 units UNSCH PRN IVF 10/13/16 10:15 (Mannitol Inj) 12.5 gm UNSCH PRN IV 10/13/16 10:15 (Albumin 25% Inj) 25 gm UNSCH PRN IV 10/13/16 10:15 (NS Flush) 5 ml UNSCH PRN IV FLUSH 10/13/16 10:15 (Heparin Inj) UNSCH PRN .XX 10/13/16 10:15 10/21/16 11:50 (Gentamicin (Dialysis) Inj) 20 mg UNSCH PRN IV 10/13/16 10:15 10/21/16 11:50 (Zofran Inj) 4 mg UNSCH PRN IV 10/13/16 10:15 (Tylenol) 650 mg UNSCH PRN PO 10/13/16 10:15 10/18/16 16:13 (Benadryl) 25 mg UNSCH PRN PO 10/13/16 10:15 10/15/16 06:08 (Nitrostat Sl) 0.4 mg UNSCH PRN SL 10/13/16 10:15 (Catapres) 0.1 mg UNSCH PRN PO 10/13/16 10:15 (Gelfoam 12 Mm/7 Mm Top) 1 foam UNSCH PRN TOP 10/13/16 10:15 (Epivir) 150 mg HS PO 10/13/16 21:00 10/21/16 20:07 ([place]) 25 mg HS PO 10/13/16 21:00 10/21/16 20:07 (Lac-Hydrin 12% Lotion) 1 applic BID TOPICAL 10/14/16 12:00 10/22/16 09:00 ([place] 10-325 Mg) 1 tab Q4H PRN PO 10/14/16 11:00 10/15/16 22:46 (NS Flush) UNSCH PRN IVF 10/14/16 14:15 (Heparin Inj) UNSCH PRN IV FLUSH 10/14/16 14:15 (Miralax) 17 gm DAILY PO 10/15/16 15:30 10/19/16 08:50 Lactulose 30 ml 30 ml DAILY PO 10/16/16 09:15 10/21/16 13:43 Ampicillin Sodium 2000 mg/Sodium Chloride 100 ml @ 400 mls/hr Q12H IV 10/17/16 18:00 10/22/16 05:55 ([facility]) 0 ml @ 0 mls/hr UNSCH OTHER 10/18/16 16:30 (Epogen Inj) 10,000 units UNSCH PRN IV 10/21/16 09:15 10/21/16 11:50 (Renvela) 800 mg TIDAC PO 10/21/16 12:00 10/22/16 13:41 A/P Assessment and Plan Patient is a 41-year-old female with a PMH of HTN, ESRD on HD M/W/F and HIV ( CD4 35 on 06/24/13, HIV RNA undetectable) on HAART who presented to the ER w/ complaints of generalized malaise, fever and chills x3 days. Sepsis secondary to Catheter Associated Bacteremia with MRSA: Met sepsis criteria with Tmax 101.6, tachycardia HR 116, source-bacteremia. + Immunocompromised, h/o HIV on HAART. +Right Chest HD Cath. S/p IVFs. - Blood Cultures 10/12 positive for MRSA, Enterococcus Bacteremia. Review blood cultures from 10/16 also growing MRSA. - Consulted infectious disease, appreciate recommendations. Continue IV Vanco with dialysis. Ampicillin added 10/18/16. Discontinued Rifampin - Successful vas catheter placement 10/14/16 - Catheter tip culture MRSA, as per ID specialist Persistent MRSA, Enterococcus Bacteremia Persistent despite cath removal, septic thrombophlebitis ? by ID specialist, Endocarditis Cath related Sepsis, recommended to continue Vancomycin, Ampicillin, Doppler UE bilaterally r/o septic thrombophlebitis, echocardiogram pending. HIV: Undetectable. Currently on HAART, resume home medications. Continue outpatient f/up with ID. ESRD on HD: M/W/F. Follows w/ Dr. Rangel. - Nephrology following to resume HD. Will need PermCath placed for outpatient dialysis. Awaiting negative cultures. - AV fistula placed in August 2016. Not yet ready for use. - Vancomycin with dialysis per ID. and No Perm cath until blood cultures negative for five days. HTN: - Controlled. Anemia, macrocytic - Possibly related to chronic disease, end-stage renal disease. - Monitor trend - Epo as needed per nephrology. Constipation Improved. DVT Prophylaxis: Heparin sq Discussed with Patient, all questions answered to the best of my abilities. Discharge Planning Awaiting ID and nephrology clearance Papo Dunham MD Oct 22, 2016 16:15
--- NOTE | 2016-10-22 18:12 | ECHRPT ---
Indication: SEPSIS , R/O ENDOCARDITIS CONCLUSIONS The left ventricular systolic function is low normal with an estimated ejection fraction in the rang e of 50- 55%. Mild mitral valve regurgitation. Anterior leaflet appears to have a vegetation on it, possible portion of the leaflet may be flail. There is a moderate anterior jet of tricuspid regurgitation. BP: 146 / 91 HR: 98 Rhythm: Sinus MEASUREMENTS (Male / Female) Normal Values Technical Quality:Good 2D ECHO LV Diastolic Diameter PLAX 4.4 cm 4.2 - 5.9 / 3.9 - 5.3 cm LV Systolic Diameter PLAX 3.5 cm IVS Diastolic Thickness 0.9 cm 0.6 - 1.0 / 0.6 - 0.9 cm LVPW Diastolic Thickness 0.9 cm 0.6 - 1.0 / 0.6 - 0.9 cm LV Relative Wall Thickness 0.4 LVOT Diameter 2.0 cm Aortic Root Diameter 2.8 cm LA Systolic Diameter LX 3.7 cm 3.0 - 4.0 / 2.7 - 3.8 cm M-MODE AV Cusp Separation MM 1.9 cm DOPPLER AV Peak Velocity 199.0 cm/s AV Peak Gradient 15.8 mmHg AV Mean Gradient 7.0 mmHg AV Velocity Time Integral 26.7 cm LVOT Peak Velocity 111.0 cm/s LVOT Peak Gradient 4.9 mmHg LVOT Velocity Time Integral 16.8 cm LVOT Cardiac Index 3464.6 cm/minm AV Area Cont Eq vti 2.0 cm AV Area Cont Eq pk 1.8 cm Mitral E Point Velocity 80.0 cm/s Mitral A Point Velocity 86.4 cm/s Mitral E to A Ratio 0.9 LV E' Lateral Velocity 8.0 cm/s Mitral E to LV E' Lateral Ratio 10.0 LV E' Septal Velocity 5.4 cm/s Mitral E to LV E' Septal Ratio 14.9 TR Peak Velocity 242.0 cm/s TR Peak Gradient 23.4 mmHg PV Peak Velocity 70.7 cm/s PV Peak Gradient 2.0 mmHg FINDINGS LEFT VENTRICLE Normal left ventricular size. Wall thickness is normal. The left ventricular systolic function is low normal with an estimated ejection fraction in the rang e of 50- 55%. No regional wall motion abnormalities are present. Left ventricular diastolic function parameters are normal. RIGHT VENTRICLE Normal right ventricular size and systolic function. LEFT ATRIUM The left atrial size is moderately dilated. RIGHT ATRIUM The right atrial size is moderately dilated. ATRIAL SEPTUM The interatrial septum not well visualized. AORTA The aortic root and proximal ascending aorta are normal in size on limited imaging. MITRAL VALVE Mild thickening of the mitral valve leaflets. Mild mitral valve regurgitation. No mitral valve stenosis. AORTIC VALVE Trileaflet aortic valve. No aortic valve regurgitation. No aortic valve stenosis. TRICUSPID VALVE Anterior leaflet appears to have a vegetation on it, possible portion of the leaflet may be flail. There is a moderate anterior jet of tricuspid regurgitation. Normal estimated pulmonary pressures. PULMONARY VALVE Normal pulmonary valve without insufficiency or stenosis. VESSELS The inferior vena cava (IVC) is normal in size. There is greater than 50% respiratory change in dimension of the inferior vena cava (normal). PERICARDIUM No pericardial effusion. Rubens Laughlin DO (Electronically Signed) Final Date:22 October 2016 18:11
[2016-10-22 20:00] VITALS: BP 96/58; PULSE 77; RESP 16; TEMP 98.7; O2SAT 99
[2016-10-22] MEDS: DOLUTEGRAVIR SODIUM 50 MG TAB PO SCH (20:56)
[2016-10-22] MEDS: RILPIVIRINE 25 MG TAB PO SCH (20:56)
[2016-10-23] VITALS (7 sets, daily range): BP systolic 86–134; BP diastolic 54–75; PULSE 79–100; RESP 14–20; TEMP 98.1–98.9; O2SAT 98–100
[2016-10-23] MEDS: AMPICILLIN INJ 2,000 MG in SODIUM CHLORIDE 0.9% INJ 100 ML IV SCH ×2 (05:11→17:34)
[2016-10-23] MEDS: SEVELAMER CARBONATE 800 MG TAB PO SCH ×3 (08:00→15:49)
[2016-10-23] MEDS: LACTIC ACID (AMMONIUM LACTATE) 12% LOTION 225 GM BTL TOPICAL SCH ×2 (09:00→21:00)
[2016-10-23] MEDS: POLYETHYLENE GLYCOL 17 GM PKG PO SCH (09:00)
[2016-10-23] MEDS: LACTULOSE SYRUP 20 GM/30 ML CUP PO SCH (09:00)
[2016-10-23] MEDS: DOCUSATE SODIUM 50 MG/SENNA 8.6 MG TAB PO SCH ×2 (09:00→21:00)
[2016-10-23] MEDS: LABETALOL HCL 300 MG TAB PO SCH ×3 (09:00→16:11)
[2016-10-23] MEDS: GENTAMICIN SULFATE (DIALYSIS USE ONLY) 20 MG/2 ML VIAL IV PRN (10:51)
[2016-10-23] MEDS: VANCOMYCIN INJ 1,000 MG in SODIUM CHLOR 0.9% 250 ML INJ 250 ML IV SCH (10:51)
[2016-10-23] MEDS: EPOETIN ALFA 10,000 UNITS/ML VIAL IV PRN (10:52)
--- NOTE | 2016-10-23 12:49 | HHI.PR ---
Subjective Remarks This is a pleasant 41 y/o who came to ER 10/12 with fever, as per patient started after receiving Hemodialysis, having pain in the left lateral chest wall area and also dry cough , cultured Gram Positive cocci on four bottles, as we know she has ESRD on HD, has Right Permanent Catheter now removed, status post line replacement, Left UE AV fistula, HD on M/W/F, MRSA Enterococcus Bacteremia, Persistent despite cath removal, septic thrombophlebitis ? by ID specialist, Endocarditis? Cath related Sepsis, recommended to continue Vancomycin, Ampicillin, [id number] on Rifampin oral for synergy Doppler UE bilaterally r/o septic thrombophlebitis, echocardiogram, 10/21: Seen in her bedroom, discussed with nurse miss Rucker and with ID specialist Doctor Gabrielle Green recommended today to continue Vancomycin with Dialysis, continue Ampicillin, Discontinued Rifampin due to multiple drug interactions with HIV medicines, no Perm-cath until blood culture is clear for five days, 10/22: Echocardiogram to rule out Endocarditis asked by ID specialist yesterday , 10/23: Seen in her bedroom, as per ID specialist recommended to continue Vancomycin with Dialysis, Continue Ampicillin REN requested to further evaluate the Tricuspid vegetation and valve function, Echo with TV lesion, will likely need antibiotics for six weeks, if REN shows compromised valve she will need CV Surgery eval, her blood culture negative in five days. No nausea, vomit or diarrhea. Objective Vital Signs Date Time Temp Pulse Resp B/P Pulse Ox O2 Delivery O2 Flow Rate FiO2 10/23/16 08:00 Room Air 10/23/16 08:00 98.5 79 20 133/75 98 10/23/16 08:00 79 10/23/16 04:00 Room Air 10/23/16 04:00 98.1 83 18 134/72 100 10/23/16 00:00 Room Air 10/23/16 00:00 98.3 81 14 122/75 100 10/22/16 20:00 98.7 77 16 96/58 99 10/22/16 20:00 Room Air 10/22/16 16:00 98.8 94 18 134/80 98 I/O 10/22/16 10/22/16 10/22/16 10/23/16 10/23/16 10/23/16 07:00 15:00 23:00 07:00 15:00 23:00 Intake Total 360 ml 480 ml 240 ml 240 ml Output Total 0 ml 0 ml 3000 ml Balance 360 ml 480 ml 240 ml 240 ml -3000 ml Intake Oral 360 ml 480 ml 240 ml 240 ml Output Urine Total 0 ml 0 ml Hemodialysis 3000 ml # Voids 1 0 # Bowel Movements 0 0 0 0 Result Diagram: 10/19/16 0500 10/19/16 0500 Imaging Last Impressions Upper Extremity Ultrasound 10/18/16 0000 Signed Impressions: Service Date/Time: Tuesday, October 18, 2016 16:53 - CONCLUSION: 1. No deep venous thrombosis identified. Left cephalic vein not clearly visualized. Fistula at the left between basilic vein and brachial artery. Doc Langley MD Catheter Placement X-Ray 10/14/16 1029 Signed Impressions: Service Date/Time: Friday, October 14, 2016 13:51 - CONCLUSION: Uncomplicated line placement as above. Mason Moore MD Central Venous Line 10/14/16 0000 Signed Impressions: Service Date/Time: Friday, October 14, 2016 00:00 - CONCLUSION: Uncomplicated Permcath removal. Mason Moore MD Chest X-Ray 10/12/16 1618 Signed Impressions: Service Date/Time: Wednesday, October 12, 2016 16:14 - CONCLUSION: No evidence of acute cardiopulmonary disease. Chet Pang MD Procedures None Other Results Laboratory Tests Test 10/19/16 05:00 White Blood Count 15.5 TH/MM3 Red Blood Count 2.58 MIL/MM3 Hemoglobin 8.8 GM/DL Hematocrit 25.6 % Mean Corpuscular Volume 99.4 FL Mean Corpuscular Hemoglobin 34.3 PG Mean Corpuscular Hemoglobin 34.5 % Concent Red Cell Distribution Width 16.0 % Platelet Count 275 TH/MM3 Mean Platelet Volume 9.5 FL Sodium Level 133 MEQ/L Potassium Level 4.2 MEQ/L Chloride Level 90 MEQ/L Carbon Dioxide Level 28.3 MEQ/L Anion Gap 15 MEQ/L Blood Urea Nitrogen 41 MG/DL Creatinine 6.54 MG/DL Estimat Glomerular Filtration 8 ML/MIN Rate Random Glucose 87 MG/DL Calcium Level 8.9 MG/DL Magnesium Level 2.6 MG/DL Objective Remarks GENERAL: This is a thinly appearing, well-developed patient, in no apparent distress. SKIN: Warm and dry. HEENT: Normocephalic. Pupils equal round and reactive. Nose without bleeding. Airway patent. NECK: Trachea midline. No JVD. Supple. Vascular catheter in the right IJ. CARDIOVASCULAR: Regular rate and rhythm without murmurs, gallops, or rubs. RESPIRATORY: Clear to auscultation. Breath sounds equal bilaterally. No wheezes , rales, or rhonchi. GASTROINTESTINAL: Abdomen soft, non-tender, nondistended. Bowel Sounds hypoactive. MUSCULOSKELETAL: Extremities without clubbing, cyanosis, or edema. NEUROLOGICAL: Awake and alert. No focal neuro deficit. Moves all extremities. Normal speech. PSYCH: Mood and affect appropriate. Medications and IVs Current Medications Medications (Trade) Dose Ordered Sig/Chinmay Route Start Time Stop Time Status Last Admin (NS Flush) 2 ml UNSCH PRN IV FLUSH 10/12/16 19:30 10/17/16 17:55 (NS Flush) 2 ml BID IV FLUSH 10/12/16 21:00 10/22/16 20:57 (Zofran Inj) 4 mg Q6H PRN IVP 10/12/16 19:30 10/12/16 23:31 (Heparin Inj) 5,000 units Q12H SQ 10/13/16 09:00 10/22/16 20:57 (Tylenol) 650 mg Q6H PRN PO 10/12/16 19:30 10/17/16 05:58 ([place] 5-325 Mg) 1 tab Q4H PRN PO 10/12/16 19:30 10/13/16 20:10 (Morphine Inj) 2 mg Q3H PRN IV 10/12/16 19:30 10/14/16 06:22 (Cass-Colace) 1 tab BID PO 10/12/16 21:00 10/21/16 20:07 (Milk Of Magnesia Liq) 30 ml Q12H PRN PO 10/12/16 19:30 10/14/16 21:08 (Senokot) 17.2 mg Q12H PRN PO 10/12/16 19:30 (Dulcolax Supp) 10 mg DAILY PRN RECTAL 10/12/16 19:30 (Lactulose Liq) 30 ml DAILY PRN PO 10/12/16 19:30 (Norvasc) 10 mg DAILY PO 10/13/16 09:00 10/22/16 13:37 (Ecotrin Ec) 81 mg DAILY PO 10/13/16 09:00 10/22/16 13:38 (Lipitor) 10 mg MOWEFR PO 10/14/16 20:00 10/18/16 20:34 (Nephrocaps) 1 cap DAILY PO 10/13/16 09:00 10/22/16 09:00 (Trandate) 300 mg TID PO 10/13/16 09:00 10/22/16 18:38 (Prinivil) 20 mg BID PO 10/12/16 21:00 10/22/16 20:57 (Valtrex) 1,000 mg DAILY PO 10/13/16 09:00 10/22/16 13:37 (Heparin Inj) 8,000 units UNSCH PRN IVF 10/13/16 10:15 (Mannitol Inj) 12.5 gm UNSCH PRN IV 10/13/16 10:15 (Albumin 25% Inj) 25 gm UNSCH PRN IV 10/13/16 10:15 (NS Flush) 5 ml UNSCH PRN IV FLUSH 10/13/16 10:15 (Heparin Inj) UNSCH PRN .XX 10/13/16 10:15 10/21/16 11:50 (Gentamicin (Dialysis) Inj) 20 mg UNSCH PRN IV 10/13/16 10:15 10/23/16 10:51 (Zofran Inj) 4 mg UNSCH PRN IV 10/13/16 10:15 (Tylenol) 650 mg UNSCH PRN PO 10/13/16 10:15 10/18/16 16:13 (Benadryl) 25 mg UNSCH PRN PO 10/13/16 10:15 10/15/16 06:08 (Nitrostat Sl) 0.4 mg UNSCH PRN SL 10/13/16 10:15 (Catapres) 0.1 mg UNSCH PRN PO 10/13/16 10:15 (Gelfoam 12 Mm/7 Mm Top) 1 foam UNSCH PRN TOP 10/13/16 10:15 (Epivir) 150 mg HS PO 10/13/16 21:00 10/22/16 20:57 (Edurant) 25 mg HS PO 10/13/16 21:00 10/22/16 20:56 (Lac-Hydrin 12% Lotion) 1 applic BID TOPICAL 10/14/16 12:00 10/22/16 09:00 ([place] 10-325 Mg) 1 tab Q4H PRN PO 10/14/16 11:00 10/15/16 22:46 (NS Flush) UNSCH PRN IVF 10/14/16 14:15 (Heparin Inj) UNSCH PRN IV FLUSH 10/14/16 14:15 (Miralax) 17 gm DAILY PO 10/15/16 15:30 10/19/16 08:50 Lactulose 30 ml 30 ml DAILY PO 10/16/16 09:15 10/21/16 13:43 Ampicillin Sodium 2000 mg/Sodium Chloride 100 ml @ 400 mls/hr Q12H IV 10/17/16 18:00 10/23/16 05:11 ([facility]) 0 ml @ 0 mls/hr UNSCH OTHER 10/18/16 16:30 (Epogen Inj) 10,000 units UNSCH PRN IV 10/21/16 09:15 10/23/16 10:52 (Renvela) 800 mg TIDAC PO 10/21/16 12:00 10/22/16 18:38 A/P Assessment and Plan Patient is a 41-year-old female with a PMH of HTN, ESRD on HD M/W/F and HIV ( CD4 35 on 06/24/13, HIV RNA undetectable) on HAART who presented to the ER w/ complaints of generalized malaise, fever and chills x3 days. Sepsis secondary to Catheter Associated Bacteremia with MRSA: Met sepsis criteria with Tmax 101.6, tachycardia HR 116, source-bacteremia. + Immunocompromised, h/o HIV on HAART. +Right Chest HD Cath. S/p IVFs. - Blood Cultures 10/12 positive for MRSA, Enterococcus Bacteremia. Review blood cultures from 10/16 also growing MRSA. - Consulted infectious disease, appreciate recommendations. Continue IV Vanco with dialysis. Ampicillin added 10/18/16. Discontinued Rifampin - Successful vas catheter placement 10/14/16 - Catheter tip culture MRSA, as per ID specialist Persistent MRSA, Enterococcus Bacteremia Persistent despite cath removal, septic thrombophlebitis ? by ID specialist, Endocarditis Cath related Sepsis, recommended to continue Vancomycin, Ampicillin, Doppler UE bilaterally r/o septic thrombophlebitis, echocardiogram showed EF 50-55%, Tricuspid anterior leaflet vegetation asked for REN HIV: Undetectable. Currently on HAART, resume home medications. Continue outpatient f/up with ID. ESRD on HD: M/W/F. Follows w/ Dr. Rangel. - Nephrology following to resume HD. Will need PermCath placed for outpatient dialysis. Awaiting negative cultures. - AV fistula placed in August 2016. Not yet ready for use. - Vancomycin with dialysis per ID. and No Perm cath until blood cultures negative for five days. HTN: - Controlled. Anemia, macrocytic - Possibly related to chronic disease, end-stage renal disease. - Monitor trend - Epo as needed per nephrology. Constipation Improved. DVT Prophylaxis: Heparin sq Discussed with Patient, all questions answered to the best of my abilities. REN asked by ID specialist. Discharge Planning Awaiting ID and nephrology clearance Papo Dunham MD Oct 23, 2016 12:49
--- NOTE | 2016-10-23 14:25 | HHI.NPPN ---
Subjective Renal Failure: Chronic, End Stage Renal Disease Interval History Seen during dialysis. She is afebrile. No new concerns. (Vero Ocampo) Review of Systems Gastrointestinal Gastrointestinal: Constipation GI Remarks resolving constipation (Vero Ocampo) Objective Data Data 10/22/16 10/23/16 19:00 07:00 Intake Total 480 ml 480 ml Output Total 0 ml Balance 480 ml 480 ml Intake Oral 480 ml 480 ml Output Urine Total 0 ml # Voids 0 # Bowel Movements 0 0 Vital Signs Date Time Temp Pulse Resp B/P Pulse Ox O2 Delivery O2 Flow Rate FiO2 10/23/16 08:00 Room Air 10/23/16 08:00 98.5 79 20 133/75 98 10/23/16 08:00 79 10/23/16 04:00 Room Air 10/23/16 04:00 98.1 83 18 134/72 100 10/23/16 00:00 Room Air 10/23/16 00:00 98.3 81 14 122/75 100 10/22/16 20:00 98.7 77 16 96/58 99 10/22/16 20:00 Room Air 10/22/16 16:00 98.8 94 18 134/80 98 (Vero Ocampo) -: 10/19/16 0500 10/19/16 0500 Tubes & Lines: Perma-Cath (Vero Ocampo) Physical Exam General Appearance: No Acute Distress, Comfortable, Malnourished (Vero Ocampo) Ears & Nose Ears & Nose Exam: Nasal Mucosa [place] (Vero Ocampo) Throat Throat Exam: Oral Mucosa [place] & Moist (Vero Ocampo) Neck Neck Exam: Neck Supple (Vero Ocampo) Pulmonary Resp Exam: Clear Bilaterally, Breath Sounds Equal, No Distress (Vero Ocampo) Cardiology CV Exam: Regular, Normal Sinus Rhythm (Vero Ocampo) Gastrointestinal/Abdomen GI Exam: Soft, Non-Tender, Bowel Sounds Present, Positive Bowel Movement ( Vero Ocampo) Musculoskeletal MS Exam: Joints Intact, Normal Gait, Normal Tone, Good Strength (Vero Ocampo) Integumentary Skin Exam: Clear, Warm, Dry, Intact (Vero Ocampo) Extremeties Extremities Exam: No Edema, Pedal Pulses Palpable (Vero Ocampo) Neurologic Neuro Exam: Alert, Awake, Oriented, Speech Clear, Moving All Extremities ( Vero Ocampo) Psychiatric Psych Exam: Appropriate Responses (Vero Ocampo) Assessment/Plan Discussed Condition With: Patient Assessment Summary: Anemia of CKD, Proteinuria, Hypertension, End Stage Renal Disease Problem List: (1) ESRD (end stage renal disease) on dialysis Plan: Seen during dialysis today on a 2K, 330 BFR, goal 1L Continue dialysis MWF a renal panel has been ordered vascath in left IJ , functions well, has immature AVF in left arm Avoid IVF. Gadolinium is contraindicated no dietary protein restriction required; on oral supplement continue Renvela (2) Sepsis Plan: catheter related sepsis. s/p PermCath removal on admission; most recent cultures from 10/18 are negative to date; exchange catheter on (with potential discharge) if cultures continue to be negative ID following, on vancomycin with HD ; also ampicillin 2D echo ordered showing possible vegetation , consider REN (3) Anemia Plan: continue epogen (4) HIV (human immunodeficiency virus infection) Plan: Continue HAART therapy. (5) Hypertension Plan: BP improved continue Antihypertensive as ordered (Vero Ocampo) Plan patient was seen and examined. 2D echo was suggestive of vegetation. REN requested by ID. All the notes were reviewed. Patient was seen during dialysis earlier today. (Diego Paige MD) Vero Ocampo Oct 23, 2016 14:25 Diego Paige MD Oct 23, 2016 20:07
[2016-10-23] MEDS: valACYclovir HCL 500 MG TAB PO SCH (15:47)
[2016-10-23] MEDS: ASPIRIN EC 81 MG TABEC PO SCH (15:48)
[2016-10-23] MEDS: VITAMIN B CMPLX/VITC/FOLIC AC CAP PO SCH (15:48)
[2016-10-23] MEDS: LISINOPRIL 20 MG TAB PO SCH ×2 (15:49→21:00)
[2016-10-23] MEDS: HEPARIN SODIUM - SQ 10,000 UNITS/ML VIAL SQ SCH ×2 (15:49→21:00)
[2016-10-23] MEDS: SODIUM CHLORIDE 0.9% FLUSH 10 ML FLUSH IV FLUSH SCH ×2 (15:52→21:00)
--- NOTE | 2016-10-23 17:39 | HHI.IDPN ---
Note Infectious Disease Note Patient feel okay. Afebrile. 2D ECHO showed lesion on the tricuspid valve, ? flail leaflet. Blood culture 10/18 - no growth. PAST MEDICAL HISTORY: 1. End-stage renal disease. 2. HIV disease managed by the outpatient physician and the patient noted undetectable viral load. 3. Hypertension. 4. AV fistula for hemodialysis placed in August of 2016 (not yet ready for use). 5. Bilateral cataracts. ALLERGIES: IRON DEXTRAN. OBJECTIVE: Vital Signs Date Time Temp Pulse Resp B/P Pulse Ox O2 Delivery O2 Flow Rate FiO2 10/23/16 08:00 Room Air 10/23/16 08:00 98.5 79 20 133/75 98 10/23/16 08:00 79 10/23/16 04:00 Room Air 10/23/16 04:00 98.1 83 18 134/72 100 10/23/16 00:00 Room Air 10/23/16 00:00 98.3 81 14 122/75 100 10/22/16 20:00 98.7 77 16 96/58 99 10/22/16 20:00 Room Air 10/22/16 10/22/16 10/23/16 15:00 23:00 07:00 Intake Total 480 ml 240 ml 240 ml Output Total 0 ml 0 ml Balance 480 ml 240 ml 240 ml Intake Oral 480 ml 240 ml 240 ml Output Urine Total 0 ml 0 ml # Voids 0 # Bowel Movements 0 0 0 Microbiology Date/Time Procedure Status Source Growth 10/12/16 16:20 Aerobic Blood Culture - Preliminary Resulted Blood Peripheral S. Aureus [place] Group D Enterococcus 10/12/16 16:20 Anaerobic Blood Culture - Preliminary Resulted S. Aureus Mrsa 10/12/16 16:30 Aerobic Blood Culture - Preliminary Resulted Blood Peripheral S. Aureus Mrsa 10/12/16 16:30 Anaerobic Blood Culture - Preliminary Resulted S. Aureus [place] Group D Enterococcus 10/12/16 17:35 Influenza Types A,B Antigen (JAELYN) - Final Complete Nasal Washing NEGATIVE FOR FLU A AND B ANTIGEN.... PHYSICAL EXAMINATION: GENERAL: No acute distress. HEENT: Pupils reactive to light. No icterus. Oropharynx moist mucosa. No lesions. NECK: Supple without adenopathy. LUNGS: Clear. HEART: Regular S1 and S2 without murmurs, rubs or gallops. ABDOMEN: Bowel sounds present, soft, no tenderness. EXTREMITIES: No clubbing, cyanosis or edema. SKIN: No rash. Warm and dry. NEUROLOGIC: Nonfocal. PSYCHIATRIC: Calm and cooperative. IMPRESSION: 1. Sepsis due to MRSA. Enterococcus. Persistent positive culture. 2D ECHO with TV lesion. 2. Catheter-related sepsis. Catheter culture had MRSA and enterococcus. Dialysis catheter removed. 3. End-stage renal disease. 4. HIV disease, which appears stable on current HAART therapy. RECOMMENDATIONS: 1. Continue to give the vancomycin with dialysis. 2. Continue Ampicillin. 3. REN requested to further evaluate the Tricuspid vegetation and valve function. 4. Will likely need IV antibiotics for 6 weeks. If the REN shows compromised valve she will need CV surgery eval. Monitor clinical status. 5. Follow repeat blood culture until completion. 6. No permacath at this time. Red Gayle MD Oct 23, 2016 17:39
[2016-10-23] MEDS: ATORVASTATIN 10 MG TAB PO SCH ×2 (20:00→21:08)
[2016-10-23] MEDS: DOLUTEGRAVIR SODIUM 50 MG TAB PO SCH (21:08)
[2016-10-23] MEDS: RILPIVIRINE 25 MG TAB PO SCH (21:08)
[2016-10-24] VITALS (7 sets, daily range): BP systolic 102–138; BP diastolic 64–80; PULSE 78–87; RESP 18–20; TEMP 98.1–99.7; O2SAT 98
[2016-10-24] MEDS: AMPICILLIN INJ 2,000 MG in SODIUM CHLORIDE 0.9% INJ 100 ML IV SCH ×2 (05:17→17:28)
--- NOTE | 2016-10-24 06:58 | HHI.PR ---
Addendum to Inpatient Note Addendum Reason: Additional Documentation Additional Information I obtained informed consent for REN to be done later this AM Ace Green MD Oct 24, 2016 06:58
[2016-10-24] MEDS: SEVELAMER CARBONATE 800 MG TAB PO SCH ×3 (08:00→17:48)
[2016-10-24] MEDS: SODIUM CHLORIDE 0.9% FLUSH 10 ML FLUSH IV FLUSH SCH ×2 (08:55→21:00)
[2016-10-24] MEDS: LACTULOSE SYRUP 20 GM/30 ML CUP PO SCH (08:56)
[2016-10-24] MEDS: POLYETHYLENE GLYCOL 17 GM PKG PO SCH (08:56)
[2016-10-24] MEDS: LABETALOL HCL 300 MG TAB PO SCH ×3 (08:56→17:28)
[2016-10-24] MEDS: LISINOPRIL 20 MG TAB PO SCH ×2 (08:56→21:00)
[2016-10-24] MEDS: valACYclovir HCL 500 MG TAB PO SCH (08:56)
[2016-10-24] MEDS: ASPIRIN EC 81 MG TABEC PO SCH (08:56)
[2016-10-24] MEDS: DOCUSATE SODIUM 50 MG/SENNA 8.6 MG TAB PO SCH ×2 (08:56→21:00)
[2016-10-24] MEDS: VITAMIN B CMPLX/VITC/FOLIC AC CAP PO SCH (08:56)
[2016-10-24] MEDS: HEPARIN SODIUM - SQ 10,000 UNITS/ML VIAL SQ SCH ×2 (08:57→21:00)
[2016-10-24] MEDS: LACTIC ACID (AMMONIUM LACTATE) 12% LOTION 225 GM BTL TOPICAL SCH ×2 (08:57→21:00)
[2016-10-24 10:00] LABS: BICARBONATE 27.4 MEQ/L (21.0-32.0)
[2016-10-24 10:03] LABS: POTASSIUM 5.1 MEQ/L (3.5-5.1)
--- NOTE | 2016-10-24 10:04 | HHI.PR ---
Subjective Remarks This is a pleasant 41 y/o who came to ER 10/12 with fever, as per patient started after receiving Hemodialysis, having pain in the left lateral chest wall area and also dry cough , cultured Gram Positive cocci on four bottles, as we know she has ESRD on HD, has Right Permanent Catheter now removed, status post line replacement, Left UE AV fistula, HD on M/W/F, MRSA Enterococcus Bacteremia, Persistent despite cath removal, septic thrombophlebitis ? by ID specialist, Endocarditis? Cath related Sepsis, recommended to continue Vancomycin, Ampicillin, [id number] on Rifampin oral for synergy Doppler UE bilaterally r/o septic thrombophlebitis, echocardiogram, 10/21: Seen in her bedroom, discussed with nurse miss Rucker and with ID specialist Doctor Gabrielle Green recommended today to continue Vancomycin with Dialysis, continue Ampicillin, Discontinued Rifampin due to multiple drug interactions with HIV medicines, no Perm-cath until blood culture is clear for five days, 10/22: Echocardiogram to rule out Endocarditis asked by ID specialist yesterday , 10/23: Seen in her bedroom, as per ID specialist recommended to continue Vancomycin with Dialysis, Continue Ampicillin REN requested to further evaluate the Tricuspid vegetation and valve function, Echo with TV lesion, will likely need antibiotics for six weeks, if REN shows compromised valve she will need CV Surgery eval, her blood culture negative in five days. 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 Objective Vital Signs Date Time Temp Pulse Resp B/P Pulse Ox O2 Delivery O2 Flow Rate FiO2 10/24/16 08:50 98 Room Air 10/24/16 07:59 86 10/24/16 04:00 98.7 84 18 109/69 98 10/24/16 00:00 98.7 87 18 102/64 98 10/23/16 20:07 88 10/23/16 20:00 98.8 88 18 86/54 98 10/23/16 19:32 Room Air 10/23/16 16:00 98.9 87 20 98/66 99 10/23/16 12:00 98.8 100 20 112/73 98 I/O 10/23/16 10/23/16 10/23/16 10/24/16 10/24/16 10/24/16 06:59 14:59 22:59 06:59 14:59 22:59 Intake Total 240 ml 360 ml 240 ml 0 ml Output Total 0 ml 3000 ml Balance 240 ml -2640 ml 240 ml 0 ml Intake Oral 240 ml 360 ml 240 ml 0 ml Output Urine Total 0 ml Hemodialysis 3000 ml # Voids 0 0 0 # Bowel Movements 0 1 Imaging Last Impressions Upper Extremity Ultrasound 10/18/16 0000 Signed Impressions: Service Date/Time: Tuesday, October 18, 2016 16:53 - CONCLUSION: 1. No deep venous thrombosis identified. Left cephalic vein not clearly visualized. Fistula at the left between basilic vein and brachial artery. Doc Langley MD Catheter Placement X-Ray 10/14/16 1029 Signed Impressions: Service Date/Time: Friday, October 14, 2016 13:51 - CONCLUSION: Uncomplicated line placement as above. Mason Moore MD Central Venous Line 10/14/16 0000 Signed Impressions: Service Date/Time: Friday, October 14, 2016 00:00 - CONCLUSION: Uncomplicated Permcath removal. Mason Moore MD Chest X-Ray 10/12/16 1618 Signed Impressions: Service Date/Time: Wednesday, October 12, 2016 16:14 - CONCLUSION: No evidence of acute cardiopulmonary disease. Chet Pang MD Procedures REN 10/24/16 Other Results No new laboratory Objective Remarks GENERAL: This is a thinly appearing, well-developed patient, in no apparent distress. SKIN: Warm and dry. HEENT: Normocephalic. Pupils equal round and reactive. Nose without bleeding. Airway patent. NECK: Trachea midline. No JVD. Supple. Vascular catheter in the right IJ. CARDIOVASCULAR: Regular rate and rhythm, tachycardia and systolic murmur 2/6 intensity. RESPIRATORY: Clear to auscultation. Breath sounds equal bilaterally. No wheezes , rales, or rhonchi. GASTROINTESTINAL: Abdomen soft, non-tender, nondistended. Bowel Sounds hypoactive. MUSCULOSKELETAL: Extremities without clubbing, cyanosis, or edema. NEUROLOGICAL: Awake and alert. No focal neuro deficit. Moves all extremities. Normal speech. PSYCH: Mood and affect appropriate. Medications and IVs Current Medications Medications (Trade) Dose Ordered Sig/Chinmay Route Start Time Stop Time Status Last Admin (NS Flush) 2 ml UNSCH PRN IV FLUSH 10/12/16 19:30 10/17/16 17:55 (NS Flush) 2 ml BID IV FLUSH 10/12/16 21:00 10/24/16 08:55 (Zofran Inj) 4 mg Q6H PRN IVP 10/12/16 19:30 10/12/16 23:31 (Heparin Inj) 5,000 units Q12H SQ 10/13/16 09:00 10/23/16 21:00 (Tylenol) 650 mg Q6H PRN PO 10/12/16 19:30 10/17/16 05:58 ([place] 5-325 Mg) 1 tab Q4H PRN PO 10/12/16 19:30 10/13/16 20:10 (Morphine Inj) 2 mg Q3H PRN IV 10/12/16 19:30 10/14/16 06:22 (Cass-Colace) 1 tab BID PO 10/12/16 21:00 10/21/16 20:07 (Milk Of Magnesia Liq) 30 ml Q12H PRN PO 10/12/16 19:30 10/14/16 21:08 (Senokot) 17.2 mg Q12H PRN PO 10/12/16 19:30 (Dulcolax Supp) 10 mg DAILY PRN RECTAL 10/12/16 19:30 (Lactulose Liq) 30 ml DAILY PRN PO 10/12/16 19:30 (Norvasc) 10 mg DAILY PO 10/13/16 09:00 10/23/16 15:47 (Ecotrin Ec) 81 mg DAILY PO 10/13/16 09:00 10/23/16 15:48 (Lipitor) 10 mg MOWEFR PO 10/14/16 20:00 10/23/16 20:00 (Nephrocaps) 1 cap DAILY PO 10/13/16 09:00 10/23/16 15:48 (Trandate) 300 mg TID PO 10/13/16 09:00 10/23/16 15:48 (Prinivil) 20 mg BID PO 10/12/16 21:00 10/23/16 15:49 (Valtrex) 1,000 mg DAILY PO 10/13/16 09:00 10/23/16 15:47 (Heparin Inj) 8,000 units UNSCH PRN IVF 10/13/16 10:15 (Mannitol Inj) 12.5 gm UNSCH PRN IV 10/13/16 10:15 (Albumin 25% Inj) 25 gm UNSCH PRN IV 10/13/16 10:15 (NS Flush) 5 ml UNSCH PRN IV FLUSH 10/13/16 10:15 (Heparin Inj) UNSCH PRN .XX 10/13/16 10:15 10/21/16 11:50 (Gentamicin (Dialysis) Inj) 20 mg UNSCH PRN IV 10/13/16 10:15 10/23/16 10:51 (Zofran Inj) 4 mg UNSCH PRN IV 10/13/16 10:15 (Tylenol) 650 mg UNSCH PRN PO 10/13/16 10:15 10/18/16 16:13 (Benadryl) 25 mg UNSCH PRN PO 10/13/16 10:15 10/15/16 06:08 (Nitrostat Sl) 0.4 mg UNSCH PRN SL 10/13/16 10:15 (Catapres) 0.1 mg UNSCH PRN PO 10/13/16 10:15 (Gelfoam 12 Mm/7 Mm Top) 1 foam UNSCH PRN TOP 10/13/16 10:15 (Epivir) 150 mg HS PO 10/13/16 21:00 10/23/16 21:08 (Edurant) 25 mg HS PO 10/13/16 21:00 10/23/16 21:08 (Lac-Hydrin 12% Lotion) 1 applic BID TOPICAL 10/14/16 12:00 10/23/16 21:00 ([place] 10-325 Mg) 1 tab Q4H PRN PO 10/14/16 11:00 10/15/16 22:46 (NS Flush) UNSCH PRN IVF 10/14/16 14:15 (Heparin Inj) UNSCH PRN IV FLUSH 10/14/16 14:15 (Miralax) 17 gm DAILY PO 10/15/16 15:30 10/19/16 08:50 Lactulose 30 ml 30 ml DAILY PO 10/16/16 09:15 10/21/16 13:43 (Ampicillin Inj/ NS Inj) 100 ml @ 400 mls/hr Q12H IV 10/17/16 18:00 10/24/16 05:17 (Epogen Inj) 10,000 units UNSCH PRN IV 10/21/16 09:15 10/23/16 10:52 (Renvela) 800 mg TIDAC PO 10/21/16 12:00 10/23/16 15:49 A/P Assessment and Plan Patient is a 41-year-old female with a PMH of HTN, ESRD on HD M/W/ and HIV ( CD4 35 on 06/24/13, HIV RNA undetectable) on HAART who presented to the ER w/ complaints of generalized malaise, fever and chills x3 days. Sepsis secondary to Catheter Associated Bacteremia with MRSA: Met sepsis criteria with Tmax 101.6, tachycardia HR 116, source-bacteremia. + Immunocompromised, h/o HIV on HAART. +Right Chest HD Cath. S/p IVFs. - Blood Cultures 10/12 positive for MRSA, Enterococcus Bacteremia. Review blood cultures from 10/16 also growing MRSA. - Consulted infectious disease, appreciate recommendations. Continue IV Vanco with dialysis. Ampicillin added 10/18/16. Discontinued Rifampin - Successful vas catheter placement 10/14/16 - Catheter tip culture MRSA, as per ID specialist Persistent MRSA, Enterococcus Bacteremia Persistent despite cath removal, septic thrombophlebitis ? by ID specialist, Endocarditis Cath related Sepsis, recommended to continue Vancomycin, Ampicillin, Doppler UE bilaterally r/o septic thrombophlebitis, echocardiogram showed EF 50-55%, Tricuspid anterior leaflet vegetation Status post REN performed today by aquatics specialist Doctor Rubens Laughlin REN showed Tricuspid valve Endocarditis with Mild TR, Post Procedure patient with Hypotension, nausea and vomit. HIV: Undetectable. Currently on HAART, resume home medications. Continue outpatient f/up with ID. ESRD on HD: //. Follows w/ Dr. Rangel. - Nephrology following to resume HD. Will need PermCath placed for outpatient dialysis. Awaiting negative cultures. - AV fistula placed in August 2016. Not yet ready for use. - Vancomycin with dialysis per ID. and No Perm cath until blood cultures negative for five days. HTN: - Controlled. Anemia, macrocytic - Possibly related to chronic disease, end-stage renal disease. - Monitor trend - Epo as needed per nephrology. Constipation Improved. DVT Prophylaxis: Heparin sq Discussed with Patient, all questions answered to the best of my abilities. Her Father and Mother in the room. Nurse Miss Nolasco I had the pleasure to talk about this case Receive input and Recommendations by Float Remover Doctor Rubens Laughlin Appreciated. Discharge Planning Not yet cleared for discharge. will need prolonged antibiotic management. Papo Dunham MD Oct 24, 2016 10:04
[2016-10-24] MEDS ORDERED: DO NOT ADM ANY ANTICOAGULANT DRUGS PRN (11:46)
[2016-10-24] MEDS ORDERED: PROPOFOL 200 MG/20 ML AMP IV ONE (12:19)
[2016-10-24] MEDS ORDERED: ONDANSETRON HCL 4 MG/2 ML VIAL IV PUSH ONE (12:19)
--- NOTE | 2016-10-24 12:39 | PD.CARD.PN ---
Subjective Subjective Remarks Post-REN Mild abdominal pain, which the patient has had for 2-3 days Nauseated, emesis with old blood Cough with lots of mucus and secretions Objective Medications Current Medications Medications (Trade) Dose Ordered Sig/Chinmay Route Start Time Stop Time Status Last Admin (NS Flush) 2 ml UNSCH PRN IV FLUSH 10/12/16 19:30 10/17/16 17:55 (NS Flush) 2 ml BID IV FLUSH 10/12/16 21:00 10/24/16 08:55 (Zofran Inj) 4 mg Q6H PRN IVP 10/12/16 19:30 10/12/16 23:31 (Heparin Inj) 5,000 units Q12H SQ 10/13/16 09:00 10/23/16 21:00 (Tylenol) 650 mg Q6H PRN PO 10/12/16 19:30 10/17/16 05:58 ([place] 5-325 Mg) 1 tab Q4H PRN PO 10/12/16 19:30 10/13/16 20:10 (Morphine Inj) 2 mg Q3H PRN IV 10/12/16 19:30 10/14/16 06:22 (Cass-Colace) 1 tab BID PO 10/12/16 21:00 10/21/16 20:07 (Milk Of Magnesia Liq) 30 ml Q12H PRN PO 10/12/16 19:30 10/14/16 21:08 (Senokot) 17.2 mg Q12H PRN PO 10/12/16 19:30 (Dulcolax Supp) 10 mg DAILY PRN RECTAL 10/12/16 19:30 (Lactulose Liq) 30 ml DAILY PRN PO 10/12/16 19:30 (Norvasc) 10 mg DAILY PO 10/13/16 09:00 10/23/16 15:47 (Ecotrin Ec) 81 mg DAILY PO 10/13/16 09:00 10/23/16 15:48 (Lipitor) 10 mg MOWEFR PO 10/14/16 20:00 10/23/16 20:00 (Nephrocaps) 1 cap DAILY PO 10/13/16 09:00 10/23/16 15:48 (Trandate) 300 mg TID PO 10/13/16 09:00 10/23/16 15:48 (Prinivil) 20 mg BID PO 10/12/16 21:00 10/23/16 15:49 (Valtrex) 1,000 mg DAILY PO 10/13/16 09:00 10/23/16 15:47 (Heparin Inj) 8,000 units UNSCH PRN IVF 10/13/16 10:15 (Mannitol Inj) 12.5 gm UNSCH PRN IV 10/13/16 10:15 (Albumin 25% Inj) 25 gm UNSCH PRN IV 10/13/16 10:15 (NS Flush) 5 ml UNSCH PRN IV FLUSH 10/13/16 10:15 (Heparin Inj) UNSCH PRN .XX 10/13/16 10:15 10/21/16 11:50 (Gentamicin (Dialysis) Inj) 20 mg UNSCH PRN IV 10/13/16 10:15 10/23/16 10:51 (Zofran Inj) 4 mg UNSCH PRN IV 10/13/16 10:15 (Tylenol) 650 mg UNSCH PRN PO 10/13/16 10:15 10/18/16 16:13 (Benadryl) 25 mg UNSCH PRN PO 10/13/16 10:15 10/15/16 06:08 (Nitrostat Sl) 0.4 mg UNSCH PRN SL 10/13/16 10:15 (Catapres) 0.1 mg UNSCH PRN PO 10/13/16 10:15 (Gelfoam 12 Mm/7 Mm Top) 1 foam UNSCH PRN TOP 10/13/16 10:15 (Epivir) 150 mg HS PO 10/13/16 21:00 10/23/16 21:08 (Edurant) 25 mg HS PO 10/13/16 21:00 10/23/16 21:08 (Lac-Hydrin 12% Lotion) 1 applic BID TOPICAL 10/14/16 12:00 10/23/16 21:00 ([place] 10-325 Mg) 1 tab Q4H PRN PO 10/14/16 11:00 10/15/16 22:46 (NS Flush) UNSCH PRN IVF 10/14/16 14:15 (Heparin Inj) UNSCH PRN IV FLUSH 10/14/16 14:15 (Miralax) 17 gm DAILY PO 10/15/16 15:30 10/19/16 08:50 Lactulose 30 ml 30 ml DAILY PO 10/16/16 09:15 10/21/16 13:43 (Ampicillin Inj/ NS Inj) 100 ml @ 400 mls/hr Q12H IV 10/17/16 18:00 10/24/16 05:17 (Epogen Inj) 10,000 units UNSCH PRN IV 10/21/16 09:15 10/23/16 10:52 (Renvela) 800 mg TIDAC PO 10/21/16 12:00 10/23/16 15:49 Vital Signs / I&O Vital Signs Date Time Temp Pulse Resp B/P Pulse Ox O2 Delivery O2 Flow Rate FiO2 10/24/16 12:00 78 18 99/71 96 Room Air 10/24/16 11:45 98.0 77 18 103/73 99 Nasal Cannula 2 10/24/16 08:50 98 Room Air 10/24/16 07:59 86 10/24/16 04:00 98.7 84 18 109/69 98 10/24/16 00:00 98.7 87 18 102/64 98 10/23/16 20:07 88 10/23/16 20:00 98.8 88 18 86/54 98 10/23/16 19:32 Room Air 10/23/16 16:00 98.9 87 20 98/66 99 I/O 10/23/16 10/23/16 10/23/16 10/24/16 10/24/16 10/24/16 07:00 15:00 23:00 07:00 15:00 23:00 Intake Total 240 ml 360 ml 240 ml 0 ml 1000 ml Output Total 0 ml 3000 ml Balance 240 ml -2640 ml 240 ml 0 ml 1000 ml Intake Oral 240 ml 360 ml 240 ml 0 ml Other 1000 ml Output Urine Total 0 ml Hemodialysis 3000 ml # Voids 0 0 0 # Bowel Movements 0 1 Physical Exam GENERAL: NAD, AAOx3 SKIN: Warm and dry. HEAD: Atraumatic. Normocephalic. EYES: Pupils equal and round. No scleral icterus. No injection or drainage. ENT: No nasal bleeding or discharge. Mucous membranes pink and moist. NECK: Trachea midline. No JVD. CARDIOVASCULAR: Regular rate and rhythm. RESPIRATORY: No accessory muscle use. Clear to auscultation. Breath sounds equal bilaterally. GASTROINTESTINAL: Abdomen soft, non-tender, nondistended. Hepatic and splenic margins not palpable. MUSCULOSKELETAL: Extremities without clubbing, cyanosis, or edema. No obvious deformities. NEUROLOGICAL: Awake and alert. No obvious cranial nerve deficits. Motor grossly within normal limits. Five out of 5 muscle strength in the arms and legs. Normal speech. PSYCHIATRIC: Appropriate mood and affect; insight and judgment normal. Laboratory Laboratory Tests Test 10/24/16 06:02 Sodium Level 129 MEQ/L Potassium Level 5.1 MEQ/L Chloride Level 89 MEQ/L Carbon Dioxide Level 27.4 MEQ/L Anion Gap 13 MEQ/L Blood Urea Nitrogen 41 MG/DL Creatinine 7.76 MG/DL Estimat Glomerular Filtration 7 ML/MIN Rate Random Glucose 75 MG/DL Calcium Level 9.2 MG/DL Phosphorus Level 7.4 MG/DL Albumin 2.3 GM/DL Assessment and Plan Problem List: (1) Endocarditis (2) HIV (human immunodeficiency virus infection) (3) Hypertension (4) ESRD (end stage renal disease) on dialysis (5) Sepsis Assessment and Plan 1) REN showing tricuspid valve endocarditis with mild TR Please see full report 2) Post-anesthesia with nausea/emesis and cough with mucus Mild abdominal pain, chronic over past few days BP/HR stable Abdomen soft, mildly sore Will watch in the PACU post-REN for stability Discussed with sunny and Rubens Underwood DO Oct 24, 2016 12:39
--- NOTE | 2016-10-24 15:57 | HHI.NPPN ---
Subjective Renal Failure: Chronic, End Stage Renal Disease Interval History She is tearful about lack of appetite related to antibiotics. REN positive. Due for dialysis tomorrow. (Vero Ocampo) Review of Systems Gastrointestinal Gastrointestinal: Constipation GI Remarks loss of appetite (Vero Ocampo) Psych Psych: Depression (Vero Ocampo) Objective Data Data 10/23/16 10/24/16 19:00 07:00 Intake Total 360 ml 240 ml Output Total 3000 ml Balance -2640 ml 240 ml Intake Oral 360 ml 240 ml Hemodialysis 3000 ml # Voids 0 0 # Bowel Movements 1 Vital Signs Date Time Temp Pulse Resp B/P Pulse Ox O2 Delivery O2 Flow Rate FiO2 10/24/16 12:15 98.0 79 18 94/61 96 Room Air 10/24/16 12:00 78 18 99/71 96 Room Air 10/24/16 12:00 98.2 87 20 125/80 98 10/24/16 11:45 98.0 77 18 103/73 99 Nasal Cannula 2 10/24/16 08:50 98 Room Air 10/24/16 08:00 98.1 81 20 105/65 98 10/24/16 07:59 86 10/24/16 04:00 98.7 84 18 109/69 98 10/24/16 00:00 98.7 87 18 102/64 98 10/23/16 20:07 88 10/23/16 20:00 98.8 88 18 86/54 98 10/23/16 19:32 Room Air 10/23/16 16:00 98.9 87 20 98/66 99 (Vero Ocampo) -: 10/24/16 0602 Tubes & Lines: Perma-Cath (Vero Ocampo) Physical Exam General Appearance: No Acute Distress, Comfortable, Anxious, Malnourished (Vero Ocampo) Ears & Nose Ears & Nose Exam: Nasal Mucosa [place] (Vero Ocampo) Throat Throat Exam: Oral Mucosa [place] & Moist (Vero Ocampo) Neck Neck Exam: Neck Supple (Vero Ocampo) Pulmonary Resp Exam: Clear Bilaterally, Breath Sounds Equal, No Distress (Vero Ocampo) Cardiology CV Exam: Regular, Normal Sinus Rhythm (Vero Ocampo) Gastrointestinal/Abdomen GI Exam: Soft, Non-Tender, Bowel Sounds Present, Positive Bowel Movement ( Vero Ocampo) Musculoskeletal MS Exam: Joints Intact, Normal Gait, Normal Tone, Good Strength (Vero Ocampo) Integumentary Skin Exam: Clear, Warm, Dry, Intact (Vero Ocampo) Extremeties Extremities Exam: No Edema, Pedal Pulses Palpable (Vero Ocampo) Neurologic Neuro Exam: Alert, Awake, Oriented, Speech Clear, Moving All Extremities ( Vero Ocampo) Psychiatric Psych Exam: Appropriate Responses (Vero Ocampo) Assessment/Plan Discussed Condition With: Patient Assessment Summary: Anemia of CKD, Proteinuria, Hypertension, End Stage Renal Disease Problem List: (1) ESRD (end stage renal disease) on dialysis Plan: Continue dialysis MWF, due tomorrow vascath in left IJ , functions well, has immature AVF in left arm Avoid IVF. Gadolinium is contraindicated no dietary protein restriction required; on oral supplement continue Renvela , dosage increased (2) Sepsis Plan: catheter related sepsis. s/p PermCath removal on admission; most recent cultures from 10/18 are negative to date ID following, on vancomycin with HD ; also ampicillin REN showing TV endocarditis, CTS to be consulted for their opinion will need 6 weeks of antibiotics (3) Anemia Plan: continue epogen (4) HIV (human immunodeficiency virus infection) Plan: Continue HAART therapy. start Megace for appetite stimulation (5) Hypertension Plan: BP improved continue Antihypertensive as ordered (Vero Ocampo) Problem List: (1) ESRD (end stage renal disease) on dialysis Plan: Continue dialysis MWF, due tomorrow vascath in left IJ , functions well, has immature AVF in left arm Avoid IVF. Gadolinium is contraindicated no dietary protein restriction required; on oral supplement continue Renvela , dosage increased (2) Sepsis Plan: catheter related sepsis. s/p PermCath removal on admission; most recent cultures from 10/18 are negative to date ID following, on vancomycin with HD ; also ampicillin REN showing TV endocarditis, CTS to be consulted for their opinion will need 6 weeks of antibiotics (3) Anemia Plan: continue epogen (4) HIV (human immunodeficiency virus infection) Plan: Continue HAART therapy. start Megace for appetite stimulation (5) Hypertension Plan: BP improved continue Antihypertensive as ordered Plan patient was seen and examined. Agree with above assessment and plan. Notes were reviewed. Tricuspid valve vegetation is noted on REN. On Ampicillin and Vancomycin currently. (Diego Paige MD) Vero Ocampo Oct 24, 2016 15:57 Diego Paige MD Oct 25, 2016 20:30
[2016-10-24] MEDS: DOLUTEGRAVIR SODIUM 50 MG TAB PO SCH (21:26)
[2016-10-24] MEDS: RILPIVIRINE 25 MG TAB PO SCH (21:27)
[2016-10-24] MEDS: MEGESTROL ACETATE 40 MG TAB PO SCH (21:30)
--- NOTE | 2016-10-24 23:06 | ECHRPT ---
Indication: endocarditis CONCLUSIONS The left ventricular systolic function is normal with an estimated ejection fraction in the range of 55-60%. There is mild tricuspid valve regurgitation. Mobile echodensity on the anterior leaflet consistent with endocarditis, measuring 1.4cm x 0.5cm. BP: / HR: Rhythm: Technical Quality:Good Medications Complications None Proc. Components Anesthesia at bedside for sedation. FINDINGS LEFT VENTRICLE Normal left ventricular size. Wall thickness is normal. The left ventricular systolic function is normal with an estimated ejection fraction in the range of 55-60%. RIGHT VENTRICLE Normal right ventricular size and systolic function. LEFT ATRIUM The left atrial size is normal. RIGHT ATRIUM The right atrium is not well visualized. ATRIAL APPENDAGES Normal left atrial appendage size with no evidence of thrombus formation. ATRIAL SEPTUM Normal atrial septal thickness without atrial level shunting by limited color doppler interrogation. No atrial level shunt is observed with agitated saline contrast administration. AORTA The aortic root and proximal ascending aorta are normal in size on limited imaging. MITRAL VALVE Structurally normal mitral valve. Trace mitral valve regurgitation. No mitral valve stenosis. AORTIC VALVE Trileaflet aortic valve. No aortic valve regurgitation. No aortic valve stenosis. TRICUSPID VALVE Structurally normal tricuspid valve. There is mild tricuspid valve regurgitation. No tricuspid valve stenosis. Mobile echodensity on the anterior leaflet consistent with endocarditis, measuring 1.4cm x 0.5cm VESSELS The pulmonary valve is not well visualized. No pulmonary valve regurgitation. Rubens Laughlin DO (Electronically Signed) Final Date:24 October 2016 23:05
[2016-10-25] VITALS (7 sets, daily range): BP systolic 84–153; BP diastolic 52–84; PULSE 78–94; RESP 16–20; TEMP 97.6–100.1; O2SAT 97–98
[2016-10-25] MEDS: AMPICILLIN INJ 2,000 MG in SODIUM CHLORIDE 0.9% INJ 100 ML IV SCH ×2 (06:24→15:23)
[2016-10-25] MEDS: HEPARIN SODIUM - IV 10,000 UNITS/10 ML VIAL PRN (08:32)
[2016-10-25] MEDS: EPOETIN ALFA 10,000 UNITS/ML VIAL IV PRN (08:32)
[2016-10-25] MEDS: VANCOMYCIN INJ 1,000 MG in SODIUM CHLOR 0.9% 250 ML INJ 250 ML IV SCH (08:32)
[2016-10-25] MEDS: GENTAMICIN SULFATE (DIALYSIS USE ONLY) 20 MG/2 ML VIAL IV PRN (08:32)
[2016-10-25] MEDS: SODIUM CHLORIDE 0.9% FLUSH 10 ML FLUSH IV FLUSH SCH ×2 (09:00→21:41)
[2016-10-25] MEDS: LACTIC ACID (AMMONIUM LACTATE) 12% LOTION 225 GM BTL TOPICAL SCH ×2 (09:00→21:42)
[2016-10-25] MEDS: LISINOPRIL 20 MG TAB PO SCH ×2 (09:00→21:00)
--- NOTE | 2016-10-25 09:18 | HHI.NPPN ---
Subjective Renal Failure: Chronic, End Stage Renal Disease Interval History Seen during dialysis today. No new developments. (Vero Ocampo) Review of Systems Gastrointestinal Gastrointestinal: Constipation GI Remarks loss of appetite (Vero Ocampo) Psych Psych: Depression (Vero Ocampo) Objective Data Data 10/24/16 10/25/16 19:00 07:00 Intake Total 1240 ml 240 ml Output Total 0 ml 0 ml Balance 1240 ml 240 ml Intake Oral 240 ml 240 ml Other 1000 ml Output Urine Total 0 ml 0 ml # Voids 0 # Bowel Movements 0 0 Vital Signs Date Time Temp Pulse Resp B/P Pulse Ox O2 Delivery O2 Flow Rate FiO2 10/25/16 08:00 97.6 84 20 153/84 97 10/25/16 04:00 98.4 90 18 139/81 98 10/25/16 00:00 98.3 78 20 112/74 98 10/24/16 20:00 78 10/24/16 20:00 99.7 86 19 106/68 98 10/24/16 19:41 Room Air 10/24/16 16:00 98.5 85 20 138/74 98 10/24/16 12:15 98.0 79 18 94/61 96 Room Air 10/24/16 12:00 78 18 99/71 96 Room Air 10/24/16 12:00 98.2 87 20 125/80 98 10/24/16 11:45 98.0 77 18 103/73 99 Nasal Cannula 2 (Vero Ocampo) -: 10/24/16 0602 Tubes & Lines: Perma-Cath (Vero Ocampo) Physical Exam General Appearance: No Acute Distress, Comfortable, Anxious, Malnourished (Vero Ocampo) Ears & Nose Ears & Nose Exam: Nasal Mucosa [place] (Vero Ocampo) Throat Throat Exam: Oral Mucosa [place] & Moist (Vero Ocampo) Neck Neck Exam: Neck Supple (Vero Ocampo) Pulmonary Resp Exam: Clear Bilaterally, Breath Sounds Equal, No Distress (Vero Ocampo) Cardiology CV Exam: Regular, Normal Sinus Rhythm (Vero Ocampo) Gastrointestinal/Abdomen GI Exam: Soft, Non-Tender, Bowel Sounds Present, Positive Bowel Movement ( Vero Ocampo) Musculoskeletal MS Exam: Joints Intact, Normal Gait, Normal Tone, Good Strength (Vero Ocampo) Integumentary Skin Exam: Clear, Warm, Dry, Intact (Vero Ocampo) Extremeties Extremities Exam: No Edema, Pedal Pulses Palpable (Vero Ocampo) Neurologic Neuro Exam: Alert, Awake, Oriented, Speech Clear, Moving All Extremities ( Vero Ocampo) Psychiatric Psych Exam: Appropriate Responses (Vero Ocampo) Assessment/Plan Discussed Condition With: Patient Assessment Summary: Anemia of CKD, Proteinuria, Hypertension, End Stage Renal Disease Problem List: (1) ESRD (end stage renal disease) on dialysis Plan: Seen during dialysis today on a 2K, 350 BFR, goal of 3200 ml. Continue dialysis MWF vascath in left IJ , functions well, has immature AVF in left arm will eventually need PermCath placement Avoid IVF. Gadolinium is contraindicated no dietary protein restriction required; on oral supplement continue Renvela , dosage increased (2) Sepsis Plan: catheter related sepsis. s/p PermCath removal on admission and vascath exchange most recent cultures from 10/18 are negative to date ID following, on vancomycin with HD ; also ampicillin REN showing TV endocarditis, CTS to be consulted for their opinion will need 6 weeks of antibiotics she can have a tunneled cervantes catheter for antibiotics (3) Anemia Plan: continue epogen (4) HIV (human immunodeficiency virus infection) Plan: Continue HAART therapy. On Megace for appetite stimulation (5) Hypertension Plan: BP improved continue Antihypertensive as ordered (Vero Ocampo) Plan patient was seen and examined. Agree with above assessment and plan. ID note reviewed, Vancomycin and Ampicillin recommended. CT surgery evaluation is pending. (Diego Paige MD) Veor Ocampo Oct 25, 2016 09:17 Diego Paige MD Oct 25, 2016 20:34
--- NOTE | 2016-10-25 10:59 | HHI.PR ---
Subjective Remarks This is a pleasant 41 y/o who came to ER 10/12 with fever, as per patient started after receiving Hemodialysis, having pain in the left lateral chest wall area and also dry cough , cultured Gram Positive cocci on four bottles, as we know she has ESRD on HD, has Right Permanent Catheter now removed, status post line replacement, Left UE AV fistula, HD on M/W/F, MRSA Enterococcus Bacteremia, Persistent despite cath removal, septic thrombophlebitis ? by ID specialist, Endocarditis? Cath related Sepsis, recommended to continue Vancomycin, Ampicillin, [id number] on Rifampin oral for synergy Doppler UE bilaterally r/o septic thrombophlebitis, echocardiogram, 10/21: Seen in her bedroom, discussed with nurse miss Rucker and with ID specialist Doctor Gabrielle Green recommended today to continue Vancomycin with Dialysis, continue Ampicillin, Discontinued Rifampin due to multiple drug interactions with HIV medicines, no Perm-cath until blood culture is clear for five days, 10/22: Echocardiogram to rule out Endocarditis asked by ID specialist yesterday , 10/23: Seen in her bedroom, as per ID specialist recommended to continue Vancomycin with Dialysis, Continue Ampicillin REN requested to further evaluate the Tricuspid vegetation and valve function, Echo with TV lesion, will likely need antibiotics for six weeks, if REN shows compromised valve she will need CV Surgery eval, her blood culture negative in five days. 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 10/25: Stable no complaint discussed with nurse Miss Em no new issues, status post follow up by ID specialist, recommended to continue Vancomycin with Dialysis 3 times per week until 11/29/16. continue Ampicillin 2 gram IV every 12 hours until 11/29/16 Cardiothoracic Valve surgery, Need to determine what IV access to use for daily IV antibiotics, no perm cath until completion of IV antibiotics. Objective Vital Signs Date Time Temp Pulse Resp B/P Pulse Ox O2 Delivery O2 Flow Rate FiO2 10/25/16 08:00 97.6 84 20 153/84 97 10/25/16 04:00 98.4 90 18 139/81 98 10/25/16 00:00 98.3 78 20 112/74 98 10/24/16 20:00 78 10/24/16 20:00 99.7 86 19 106/68 98 10/24/16 19:41 Room Air 10/24/16 16:00 98.5 85 20 138/74 98 10/24/16 12:15 98.0 79 18 94/61 96 Room Air 10/24/16 12:00 78 18 99/71 96 Room Air 10/24/16 12:00 98.2 87 20 125/80 98 10/24/16 11:45 98.0 77 18 103/73 99 Nasal Cannula 2 I/O 10/24/16 10/24/16 10/24/16 10/25/16 10/25/16 10/25/16 07:00 15:00 23:00 07:00 15:00 23:00 Intake Total 0 ml 1240 ml 240 ml 0 ml Output Total 0 ml 0 ml 3000 ml Balance 0 ml 1240 ml 240 ml 0 ml -3000 ml Intake Oral 0 ml 240 ml 240 ml 0 ml Other 1000 ml Output Urine Total 0 ml 0 ml Hemodialysis 3000 ml # Voids 0 0 # Bowel Movements 0 0 Result Diagram: 10/24/16 0602 Imaging Last Impressions Upper Extremity Ultrasound 10/18/16 0000 Signed Impressions: Service Date/Time: Tuesday, October 18, 2016 16:53 - CONCLUSION: 1. No deep venous thrombosis identified. Left cephalic vein not clearly visualized. Fistula at the left between basilic vein and brachial artery. Doc Langley MD Catheter Placement X-Ray 10/14/16 1029 Signed Impressions: Service Date/Time: Friday, October 14, 2016 13:51 - CONCLUSION: Uncomplicated line placement as above. Mason Moore MD Central Venous Line 10/14/16 0000 Signed Impressions: Service Date/Time: Friday, October 14, 2016 00:00 - CONCLUSION: Uncomplicated Permcath removal. Mason Moore MD Chest X-Ray 10/12/16 1618 Signed Impressions: Service Date/Time: Wednesday, October 12, 2016 16:14 - CONCLUSION: No evidence of acute cardiopulmonary disease. Chet Pang MD Procedures REN 10/24/16 Other Results Laboratory Tests Test 10/24/16 06:02 Sodium Level 129 MEQ/L Potassium Level 5.1 MEQ/L Chloride Level 89 MEQ/L Carbon Dioxide Level 27.4 MEQ/L Anion Gap 13 MEQ/L Blood Urea Nitrogen 41 MG/DL Creatinine 7.76 MG/DL Estimat Glomerular Filtration 7 ML/MIN Rate Random Glucose 75 MG/DL Calcium Level 9.2 MG/DL Phosphorus Level 7.4 MG/DL Albumin 2.3 GM/DL Objective Remarks GENERAL: This is a thinly appearing, well-developed patient, in no apparent distress. SKIN: Warm and dry. HEENT: Normocephalic. Pupils equal round and reactive. Nose without bleeding. Airway patent. NECK: Trachea midline. No JVD. Supple. Vascular catheter in the right IJ. CARDIOVASCULAR: Regular rate and rhythm, tachycardia and systolic murmur 2/6 intensity. RESPIRATORY: Clear to auscultation. Breath sounds equal bilaterally. No wheezes , rales, or rhonchi. GASTROINTESTINAL: Abdomen soft, non-tender, nondistended. Bowel Sounds hypoactive. MUSCULOSKELETAL: Extremities without clubbing, cyanosis, or edema. NEUROLOGICAL: Awake and alert. No focal neuro deficit. Moves all extremities. Normal speech. PSYCH: Mood and affect appropriate. Medications and IVs Current Medications Medications (Trade) Dose Ordered Sig/Chinmay Route Start Time Stop Time Status Last Admin (NS Flush) 2 ml UNSCH PRN IV FLUSH 10/12/16 19:30 10/17/16 17:55 (NS Flush) 2 ml BID IV FLUSH 10/12/16 21:00 10/24/16 21:00 (Zofran Inj) 4 mg Q6H PRN IVP 10/12/16 19:30 10/12/16 23:31 (Heparin Inj) 5,000 units Q12H SQ 10/13/16 09:00 10/23/16 21:00 (Tylenol) 650 mg Q6H PRN PO 10/12/16 19:30 10/17/16 05:58 (Reno 5-325 Mg) 1 tab Q4H PRN PO 10/12/16 19:30 10/13/16 20:10 (Morphine Inj) 2 mg Q3H PRN IV 10/12/16 19:30 10/14/16 06:22 (Cass-Colace) 1 tab BID PO 10/12/16 21:00 10/21/16 20:07 (Milk Of Magnesia Liq) 30 ml Q12H PRN PO 10/12/16 19:30 10/14/16 21:08 (Senokot) 17.2 mg Q12H PRN PO 10/12/16 19:30 (Dulcolax Supp) 10 mg DAILY PRN RECTAL 10/12/16 19:30 (Lactulose Liq) 30 ml DAILY PRN PO 10/12/16 19:30 (Norvasc) 10 mg DAILY PO 10/13/16 09:00 10/23/16 15:47 (Ecotrin Ec) 81 mg DAILY PO 10/13/16 09:00 10/23/16 15:48 (Lipitor) 10 mg MOWEFR PO 10/14/16 20:00 10/23/16 20:00 (Nephrocaps) 1 cap DAILY PO 10/13/16 09:00 10/23/16 15:48 (Trandate) 300 mg TID PO 10/13/16 09:00 10/24/16 17:28 (Prinivil) 20 mg BID PO 10/12/16 21:00 10/23/16 15:49 (Valtrex) 1,000 mg DAILY PO 10/13/16 09:00 10/23/16 15:47 (Heparin Inj) 8,000 units UNSCH PRN IVF 10/13/16 10:15 (Mannitol Inj) 12.5 gm UNSCH PRN IV 10/13/16 10:15 (Albumin 25% Inj) 25 gm UNSCH PRN IV 10/13/16 10:15 (NS Flush) 5 ml UNSCH PRN IV FLUSH 10/13/16 10:15 (Heparin Inj) UNSCH PRN .XX 10/13/16 10:15 10/25/16 08:32 (Gentamicin (Dialysis) Inj) 20 mg UNSCH PRN IV 10/13/16 10:15 10/25/16 08:32 (Zofran Inj) 4 mg UNSCH PRN IV 10/13/16 10:15 (Tylenol) 650 mg UNSCH PRN PO 10/13/16 10:15 10/18/16 16:13 (Benadryl) 25 mg UNSCH PRN PO 10/13/16 10:15 10/15/16 06:08 (Nitrostat Sl) 0.4 mg UNSCH PRN SL 10/13/16 10:15 (Catapres) 0.1 mg UNSCH PRN PO 10/13/16 10:15 (Gelfoam 12 Mm/7 Mm Top) 1 foam UNSCH PRN TOP 10/13/16 10:15 (Epivir) 150 mg HS PO 10/13/16 21:00 10/24/16 21:26 (Edurant) 25 mg HS PO 10/13/16 21:00 10/24/16 21:27 (Lac-Hydrin 12% Lotion) 1 applic BID TOPICAL 10/14/16 12:00 10/24/16 21:00 (Reno 10-325 Mg) 1 tab Q4H PRN PO 10/14/16 11:00 10/15/16 22:46 (NS Flush) UNSCH PRN IVF 10/14/16 14:15 (Heparin Inj) UNSCH PRN IV FLUSH 10/14/16 14:15 (Miralax) 17 gm DAILY PO 10/15/16 15:30 10/19/16 08:50 Lactulose 30 ml 30 ml DAILY PO 10/16/16 09:15 10/21/16 13:43 (Ampicillin Inj/ NS Inj) 100 ml @ 400 mls/hr Q12H IV 10/17/16 18:00 10/25/16 06:24 (Epogen Inj) 10,000 units UNSCH PRN IV 10/21/16 09:15 10/25/16 08:32 Miscellaneous Information ALL NURSING DEPARTME... UNSCH PRN .XX 10/24/16 11:46 10/25/16 11:45 (Renvela) 1,600 mg TIDAC PO 10/24/16 17:00 10/24/16 17:48 (Megace) 40 mg Q12HR PO 10/24/16 21:00 10/24/16 21:30 A/P Assessment and Plan Patient is a 41-year-old female with a PMH of HTN, ESRD on HD M/W/F and HIV ( CD4 35 on 06/24/13, HIV RNA undetectable) on HAART who presented to the ER w/ complaints of generalized malaise, fever and chills x3 days. Sepsis secondary to Catheter Associated Bacteremia with MRSA: Met sepsis criteria with Tmax 101.6, tachycardia HR 116, source-bacteremia. + Immunocompromised, h/o HIV on HAART. +Right Chest HD Cath. S/p IVFs. - Blood Cultures 10/12 positive for MRSA, Enterococcus Bacteremia. Review blood cultures from 10/16 also growing MRSA. - Consulted infectious disease, appreciate recommendations. Continue IV Vanco with dialysis. Ampicillin added 10/18/16. Discontinued Rifampin - Successful vas catheter placement 10/14/16 - Catheter tip culture MRSA, as per ID specialist Persistent MRSA, Enterococcus Bacteremia Persistent despite cath removal, septic thrombophlebitis ? by ID specialist, Endocarditis Cath related Sepsis, recommended to continue Vancomycin, Ampicillin, Doppler UE bilaterally r/o septic thrombophlebitis, echocardiogram showed EF 50-55%, Tricuspid anterior leaflet vegetation Status post REN performed today by irrigation installation specialist Doctor Rubens Laughlin REN showed Tricuspid valve Endocarditis with Mild TR, Post Procedure patient with Hypotension, nausea and vomit. today stable no complaint, as per ID specialist to continue Vancomycin with Dialysis 3 times per week until 11/29/16, continue Ampicillin 2 gram IV every 12 hours until 11/29/16, Cardiothoracic surgery for Valve Surgery. no perm Cath until complete full antibiotic management. HIV: Undetectable. Currently on HAART, resume home medications. Continue outpatient f/up with ID. ESRD on HD: M/W/F. Follows w/ Dr. Rangel. had HD today. - Nephrology following to resume HD. Perm Cath once antibiotics finished. - AV fistula placed in August 2016. Not yet ready for use. - Vancomycin with dialysis per ID. and No Perm cath until blood cultures negative for five days. HTN: - Controlled. Anemia, macrocytic - Possibly related to chronic disease, end-stage renal disease. - Monitor trend - Epo as needed per nephrology. Constipation Improved. DVT Prophylaxis: Heparin sq Discussed with Patient, all questions answered to the best of my abilities. Discharge Planning Not yet cleared for discharge. will need prolonged antibiotic management. Papo Dunham MD Oct 25, 2016 10:59
[2016-10-25] MEDS: SEVELAMER CARBONATE 800 MG TAB PO SCH ×3 (12:00→15:23)
[2016-10-25] MEDS: DOCUSATE SODIUM 50 MG/SENNA 8.6 MG TAB PO SCH ×2 (12:25→21:40)
[2016-10-25] MEDS: VITAMIN B CMPLX/VITC/FOLIC AC CAP PO SCH (12:26)
[2016-10-25] MEDS: MEGESTROL ACETATE 40 MG TAB PO SCH ×2 (12:26→21:40)
[2016-10-25] MEDS: LACTULOSE SYRUP 20 GM/30 ML CUP PO SCH (12:26)
[2016-10-25] MEDS: LABETALOL HCL 300 MG TAB PO SCH ×3 (12:26→15:24)
[2016-10-25] MEDS: HEPARIN SODIUM - SQ 10,000 UNITS/ML VIAL SQ SCH ×2 (12:26→21:41)
[2016-10-25] MEDS: POLYETHYLENE GLYCOL 17 GM PKG PO SCH (12:27)
[2016-10-25] MEDS: valACYclovir HCL 500 MG TAB PO SCH (12:27)
[2016-10-25] MEDS: ATORVASTATIN 10 MG TAB PO SCH (12:27)
[2016-10-25] MEDS: ASPIRIN EC 81 MG TABEC PO SCH (12:27)
--- NOTE | 2016-10-25 14:57 | HHI.IDPN ---
Note Infectious Disease Note Patient feel okay. No complaints. Afebrile. REN showed lesion on the tricuspid valve. 1.4cm x .5 cm. Mild regurg. Blood culture 10/18 - no growth. Last positive Blood culture 10/16. PAST MEDICAL HISTORY: 1. End-stage renal disease. 2. HIV disease managed by the outpatient physician and the patient noted undetectable viral load. 3. Hypertension. 4. AV fistula for hemodialysis placed in August of 2016 (not yet ready for use). 5. Bilateral cataracts. ALLERGIES: IRON DEXTRAN. OBJECTIVE: Vital Signs Date Time Temp Pulse Resp B/P Pulse Ox O2 Delivery O2 Flow Rate FiO2 10/25/16 12:00 98.2 94 18 100/65 97 10/25/16 09:00 87 10/25/16 08:00 97.6 84 20 153/84 97 10/25/16 04:00 98.4 90 18 139/81 98 10/25/16 00:00 98.3 78 20 112/74 98 10/24/16 20:00 78 10/24/16 20:00 99.7 86 19 106/68 98 10/24/16 19:41 Room Air 10/24/16 16:00 98.5 85 20 138/74 98 Laboratory Tests Test 10/24/16 06:02 Sodium Level 129 MEQ/L Potassium Level 5.1 MEQ/L Chloride Level 89 MEQ/L Carbon Dioxide Level 27.4 MEQ/L Anion Gap 13 MEQ/L Blood Urea Nitrogen 41 MG/DL Creatinine 7.76 MG/DL Estimat Glomerular Filtration 7 ML/MIN Rate Random Glucose 75 MG/DL Calcium Level 9.2 MG/DL Phosphorus Level 7.4 MG/DL Albumin 2.3 GM/DL Microbiology Date/Time Procedure Status Source Growth 10/12/16 16:20 Aerobic Blood Culture - Preliminary Resulted Blood Peripheral S. Aureus Mrsa Group D Enterococcus 10/12/16 16:20 Anaerobic Blood Culture - Preliminary Resulted S. Aureus Mrsa 10/12/16 16:30 Aerobic Blood Culture - Preliminary Resulted Blood Peripheral S. Aureus Mrsa 10/12/16 16:30 Anaerobic Blood Culture - Preliminary Resulted S. Aureus Mrsa Group D Enterococcus 10/12/16 17:35 Influenza Types A,B Antigen (JAELYN) - Final Complete Nasal Washing NEGATIVE FOR FLU A AND B ANTIGEN.... PHYSICAL EXAMINATION: GENERAL: No acute distress. HEENT: Pupils reactive to light. No icterus. Oropharynx moist mucosa. No lesions. NECK: Supple without adenopathy. LUNGS: Clear breath sounds. HEART: Regular S1 and S2 without murmurs, rubs or gallops. ABDOMEN: Bowel sounds present, soft, no tenderness. EXTREMITIES: No clubbing, cyanosis or edema. SKIN: No rash. Warm and dry. NEUROLOGIC: Nonfocal. PSYCHIATRIC: Calm and cooperative. IMPRESSION: 1. 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 Enterococcus. 2. Catheter-related sepsis. Catheter culture had MRSA and enterococcus. Dialysis catheter removed. 3. End-stage renal disease. 4. HIV disease, which appears stable on current HAART therapy. RECOMMENDATIONS: 1. Continue to give the vancomycin with dialysis 3 times week until 11/29/16. 2. Continue Ampicillin 2 gram IV Q12H until 11/29/16. 3. Cardiothoracic evaluation regarding valve surgery. 4. Need to ask renal to determine what IV access to use for daily IV antibiotics. 5. Follow repeat blood culture until completion of treatment. 6. No permacath until completion of IV antibiotics. Once need for surgery and IV access and arrangements are made for outpatient antibiotics are made She can then be discharged. Red Gayle MD Oct 25, 2016 14:57
--- NOTE | 2016-10-25 15:01 | HHI.FF ---
Infusion Therapy Location of Infusion Therapy: Home [facility] Care IV Infusion Order Patient Information Patient Weight 48.8 kg Diagnosis: (1) Sepsis Diagnosis Endocarditis Coded Allergies: ferumoxytol (Unverified Allergy, Severe, IRON INJECTIONS, 10/22/16) PT STATES THEY HAVE NOW CHANGED BRANDS OF IRON & SHE IS ABLE TO TAKE THE NEW BRAND OF IRON *MDRO Multi-Drug Resistant Organism (Verified Adverse Reaction, Unknown, ) MRSA PCR 09/07/16 Positive [facility] - E. cloacae (peritoneal fluid) - 05/04/16 MRSA (blood) 10/12/16, (cath tip) 10/14/16 Administer Medication Ampicillin 2 grams IV q 12 hours Please give the dialysis days am dose after dialysis. Stop Treatment: Nov 29, 2016 Administer Medication Vancomycin 1 gram IV q 48 hours w/Hemodialysis M,W,F Stop Treatment: Nov 29, 2016 Additional Information Venous access: Other Additional Instructions [x] Peripheral flush and dressing changes per protocol [x] Implanted port and central field pipe lines supervisor: * Implanted port: 10 ml Normal Saline followed by 5 ml Heparin 100 units/ml Heparin flush after each use and monthly to maintain. [] May leave port accessed during therapy. [] May leave peripheral site accessed for duration of therapy. [x] If patient has SOB or respiratory distress, check oxygen saturation. If less than 90% or clinical signs of respiratory distress, administer oxygen at 2 L/min. via nasal cannula and notify physician. [x] Anaphylaxis/Reaction orders: * Stop infusion. * Keep IV line open with saline flush. * Notify physician. * Monitor vital signs every 15 minutes until symptoms resolve. * Check Oxygen saturation; Oxygen at 2 L/min. via nasal cannula if less than 90% or clinical signs of respiratory distress. * Administer diphenhydramine (Benadryl) 25 mg IV STAT, (unless patient has received as pre-med). May repeat once, if necessary. * Solu-Cortef 250 mg IVP over 30-60 seconds, use 100 mg vials for each dissolution. * Epinephrine (1mg/1 ml) 0.3 mg subcutaneously or IVP now with any signs of respiratory distress. * Check with physician for new additional pre-med orders if patient is re- challenged or re-treated. [x] May remove PICC line when treatment complete, after confirming with Physician. [x] If the patient is admitted to the hospital, the ED, or transferred via [facility] , complete transfer form including medication reconciliation order sheet. Laboratory Tests Weekly Labs: BMP, CBC w/diff Additional Information Follow up with Red Platt MD Oct 25, 2016 15:01
[2016-10-25] MEDS: RILPIVIRINE 25 MG TAB PO SCH (21:39)
[2016-10-25] MEDS: DOLUTEGRAVIR SODIUM 50 MG TAB PO SCH (21:40)
[2016-10-26] VITALS (7 sets, daily range): BP systolic 92–123; BP diastolic 57–70; PULSE 80–89; RESP 16–20; TEMP 97.8–98.9; O2SAT 98–100
[2016-10-26] MEDS: AMPICILLIN INJ 2,000 MG in SODIUM CHLORIDE 0.9% INJ 100 ML IV SCH ×2 (06:22→18:29)
[2016-10-26] MEDS: SEVELAMER CARBONATE 800 MG TAB PO SCH ×3 (08:00→17:00)
[2016-10-26] MEDS: HEPARIN SODIUM - SQ 10,000 UNITS/ML VIAL SQ SCH ×2 (09:00→21:04)
[2016-10-26] MEDS: LISINOPRIL 20 MG TAB PO SCH ×2 (09:00→21:00)
[2016-10-26] MEDS: LACTULOSE SYRUP 20 GM/30 ML CUP PO SCH (09:00)
[2016-10-26] MEDS: DOCUSATE SODIUM 50 MG/SENNA 8.6 MG TAB PO SCH ×2 (09:00→21:03)
[2016-10-26] MEDS: LABETALOL HCL 300 MG TAB PO SCH ×3 (09:00→18:00)
[2016-10-26] MEDS: POLYETHYLENE GLYCOL 17 GM PKG PO SCH (09:00)
[2016-10-26] MEDS: MEGESTROL ACETATE 40 MG TAB PO SCH ×2 (09:15→21:03)
[2016-10-26] MEDS: valACYclovir HCL 500 MG TAB PO SCH (09:15)
[2016-10-26] MEDS: VITAMIN B CMPLX/VITC/FOLIC AC CAP PO SCH (09:15)
[2016-10-26] MEDS: ASPIRIN EC 81 MG TABEC PO SCH (09:15)
[2016-10-26] MEDS: SODIUM CHLORIDE 0.9% FLUSH 10 ML FLUSH IV FLUSH SCH ×2 (09:16→21:03)
[2016-10-26] MEDS: LACTIC ACID (AMMONIUM LACTATE) 12% LOTION 225 GM BTL TOPICAL SCH ×2 (09:19→21:04)
--- NOTE | 2016-10-26 10:38 | PD.CAR.PN ---
CVT Progress Note Subjective/Hospital Course: Pt examined and chart reviewed. At this point, I agree with continued IV antibiotic treatment for 6-8 weeks with repeat ECHO at that time to determine if surgical therapy is indicated. Given her underlying comorbidities, surgical intervention will carry a significant risk for operative and perioperative morbidity and mortality. Thank you for allowing me to participate in the care of this patient. Objective: Vital Signs Date Time Temp Pulse Resp B/P Pulse Ox O2 Delivery O2 Flow Rate FiO2 10/26/16 08:00 98.8 83 20 116/67 99 10/26/16 08:00 80 10/26/16 08:00 Room Air 10/26/16 05:50 97.8 84 16 121/70 99 10/26/16 00:08 98.6 84 16 101/61 98 10/25/16 20:00 Room Air 10/25/16 19:33 98.4 83 16 89/52 98 92/54 10/25/16 16:00 100.1 84 18 84/52 98 10/25/16 12:00 98.2 94 18 100/65 97 Result Diagram: 10/24/16 0602 (1) Endocarditis (2) HIV (human immunodeficiency virus infection) (3) Hypertension (4) ESRD (end stage renal disease) on dialysis (5) Sepsis Armando Cantor MD Oct 26, 2016 10:38
--- NOTE | 2016-10-26 11:55 | HHI.PR ---
Subjective Remarks This is a pleasant 41 y/o who came to ER 10/12 with fever, as per patient started after receiving Hemodialysis, having pain in the left lateral chest wall area and also dry cough , cultured Gram Positive cocci on four bottles, as we know she has ESRD on HD, has Right Permanent Catheter now removed, status post line replacement, Left UE AV fistula, HD on M/W/F, MRSA Enterococcus Bacteremia, Persistent despite cath removal, septic thrombophlebitis ? by ID specialist, Endocarditis? Cath related Sepsis, recommended to continue Vancomycin, Ampicillin, [id number] on Rifampin oral for synergy Doppler UE bilaterally r/o septic thrombophlebitis, echocardiogram, 10/21: Seen in her bedroom, discussed with nurse miss Rucker and with ID specialist Doctor Gabrielle Green recommended today to continue Vancomycin with Dialysis, continue Ampicillin, Discontinued Rifampin due to multiple drug interactions with HIV medicines, no Perm-cath until blood culture is clear for five days, 10/22: Echocardiogram to rule out Endocarditis asked by ID specialist yesterday , 10/23: Seen in her bedroom, as per ID specialist recommended to continue Vancomycin with Dialysis, Continue Ampicillin REN requested to further evaluate the Tricuspid vegetation and valve function, Echo with TV lesion, will likely need antibiotics for six weeks, if REN shows compromised valve she will need CV Surgery eval, her blood culture negative in five days. 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 10/25: Stable no complaint discussed with nurse Miss Em no new issues, status post follow up by ID specialist, recommended to continue Vancomycin with Dialysis 3 times per week until 11/29/16. continue Ampicillin 2 gram IV every 12 hours until 11/29/16 Cardiothoracic Valve surgery, Need to determine what IV access to use for daily IV antibiotics, no perm cath until completion of IV antibiotics. 10/26: No changes o anterior assessment no Nausea, vomit or diarrhea. Objective Vital Signs Date Time Temp Pulse Resp B/P Pulse Ox O2 Delivery O2 Flow Rate FiO2 10/26/16 08:00 98.8 83 20 116/67 99 8/19/17 08:00 80 10/26/16 08:00 Room Air 10/26/16 05:50 97.8 84 16 121/70 99 10/26/16 00:08 98.6 84 16 101/61 98 10/25/16 20:00 Room Air 10/25/16 19:33 98.4 83 16 89/52 98 92/54 10/25/16 16:00 100.1 84 18 84/52 98 10/25/16 12:00 98.2 94 18 100/65 97 I/O 10/25/16 10/25/16 10/25/16 10/26/16 10/26/16 10/26/16 07:00 15:00 23:00 07:00 15:00 23:00 Intake Total 0 ml 580 ml 1200 ml 0 ml Output Total 0 ml 3000 ml 0 ml 0 ml Balance 0 ml -2420 ml 1200 ml 0 ml Intake Oral 0 ml 480 ml 1200 ml 0 ml IV Total 100 ml Output Urine Total 0 ml 0 ml 0 ml 0 ml Hemodialysis 3000 ml # Bowel Movements 0 0 0 Result Diagram: 10/24/16 0602 Imaging Last Impressions Upper Extremity Ultrasound 10/18/16 0000 Signed Impressions: Service Date/Time: Tuesday, October 18, 2016 16:53 - CONCLUSION: 1. No deep venous thrombosis identified. Left cephalic vein not clearly visualized. Fistula at the left between basilic vein and brachial artery. Doc Langley MD Catheter Placement X-Ray 10/14/16 1029 Signed Impressions: Service Date/Time: Friday, October 14, 2016 13:51 - CONCLUSION: Uncomplicated line placement as above. Mason Moore MD Central Venous Line 10/14/16 0000 Signed Impressions: Service Date/Time: Friday, October 14, 2016 00:00 - CONCLUSION: Uncomplicated Permcath removal. Mason Moore MD Chest X-Ray 10/12/16 1618 Signed Impressions: Service Date/Time: Wednesday, October 12, 2016 16:14 - CONCLUSION: No evidence of acute cardiopulmonary disease. Chet Pang MD Procedures REN 10/24/16 Other Results Laboratory Tests Test 10/24/16 06:02 Sodium Level 129 MEQ/L Potassium Level 5.1 MEQ/L Chloride Level 89 MEQ/L Carbon Dioxide Level 27.4 MEQ/L Anion Gap 13 MEQ/L Blood Urea Nitrogen 41 MG/DL Creatinine 7.76 MG/DL Estimat Glomerular Filtration 7 ML/MIN Rate Random Glucose 75 MG/DL Calcium Level 9.2 MG/DL Phosphorus Level 7.4 MG/DL Albumin 2.3 GM/DL Objective Remarks GENERAL: This is a thinly appearing, well-developed patient, in no apparent distress. SKIN: Warm and dry. HEENT: Normocephalic. Pupils equal round and reactive. Nose without bleeding. Airway patent. NECK: Trachea midline. No JVD. Supple. Vascular catheter in the right IJ. CARDIOVASCULAR: Regular rate and rhythm, tachycardia and systolic murmur 2/6 intensity. RESPIRATORY: Clear to auscultation. Breath sounds equal bilaterally. No wheezes , rales, or rhonchi. GASTROINTESTINAL: Abdomen soft, non-tender, nondistended. Bowel Sounds hypoactive. MUSCULOSKELETAL: Extremities without clubbing, cyanosis, or edema. NEUROLOGICAL: Awake and alert. No focal neuro deficit. Moves all extremities. Normal speech. PSYCH: Mood and affect appropriate. Medications and IVs Current Medications Medications (Trade) Dose Ordered Sig/Chinmay Route Start Time Stop Time Status Last Admin (NS Flush) 2 ml UNSCH PRN IV FLUSH 10/12/16 19:30 10/17/16 17:55 (NS Flush) 2 ml BID IV FLUSH 10/12/16 21:00 10/26/16 09:16 (Zofran Inj) 4 mg Q6H PRN IVP 10/12/16 19:30 10/12/16 23:31 (Heparin Inj) 5,000 units Q12H SQ 10/13/16 09:00 10/25/16 21:41 (Tylenol) 650 mg Q6H PRN PO 10/12/16 19:30 10/17/16 05:58 ([place] 5-325 Mg) 1 tab Q4H PRN PO 10/12/16 19:30 10/13/16 20:10 (Morphine Inj) 2 mg Q3H PRN IV 10/12/16 19:30 10/14/16 06:22 (Cass-Colace) 1 tab BID PO 10/12/16 21:00 10/25/16 21:40 (Milk Of Magnesia Liq) 30 ml Q12H PRN PO 10/12/16 19:30 10/14/16 21:08 (Senokot) 17.2 mg Q12H PRN PO 10/12/16 19:30 (Dulcolax Supp) 10 mg DAILY PRN RECTAL 10/12/16 19:30 (Lactulose Liq) 30 ml DAILY PRN PO 10/12/16 19:30 (Norvasc) 10 mg DAILY PO 10/13/16 09:00 10/25/16 12:27 (Ecotrin Ec) 81 mg DAILY PO 10/13/16 09:00 10/26/16 09:15 (Lipitor) 10 mg MOWEFR PO 10/14/16 20:00 10/25/16 12:27 (Nephrocaps) 1 cap DAILY PO 10/13/16 09:00 10/26/16 09:15 (Trandate) 300 mg TID PO 10/13/16 09:00 10/25/16 12:30 (Prinivil) 20 mg BID PO 10/12/16 21:00 10/23/16 15:49 (Valtrex) 1,000 mg DAILY PO 10/13/16 09:00 10/26/16 09:15 (Heparin Inj) 8,000 units UNSCH PRN IVF 10/13/16 10:15 (Mannitol Inj) 12.5 gm UNSCH PRN IV 10/13/16 10:15 (Albumin 25% Inj) 25 gm UNSCH PRN IV 10/13/16 10:15 (NS Flush) 5 ml UNSCH PRN IV FLUSH 10/13/16 10:15 (Heparin Inj) UNSCH PRN .XX 10/13/16 10:15 10/25/16 08:32 (Gentamicin (Dialysis) Inj) 20 mg UNSCH PRN IV 10/13/16 10:15 10/25/16 08:32 (Zofran Inj) 4 mg UNSCH PRN IV 10/13/16 10:15 (Tylenol) 650 mg UNSCH PRN PO 10/13/16 10:15 10/18/16 16:13 (Benadryl) 25 mg UNSCH PRN PO 10/13/16 10:15 10/15/16 06:08 (Nitrostat Sl) 0.4 mg UNSCH PRN SL 10/13/16 10:15 (Catapres) 0.1 mg UNSCH PRN PO 10/13/16 10:15 (Gelfoam 12 Mm/7 Mm Top) 1 foam UNSCH PRN TOP 10/13/16 10:15 (Epivir) 150 mg HS PO 10/13/16 21:00 10/25/16 21:40 ([place]) 25 mg HS PO 10/13/16 21:00 10/25/16 21:39 (Lac-Hydrin 12% Lotion) 1 applic BID TOPICAL 10/14/16 12:00 10/26/16 09:19 ([place] 10-325 Mg) 1 tab Q4H PRN PO 10/14/16 11:00 10/15/16 22:46 (NS Flush) UNSCH PRN IVF 10/14/16 14:15 (Heparin Inj) UNSCH PRN IV FLUSH 10/14/16 14:15 (Miralax) 17 gm DAILY PO 10/15/16 15:30 10/25/16 12:27 Lactulose 30 ml 30 ml DAILY PO 10/16/16 09:15 10/25/16 12:26 (Ampicillin Inj/ NS Inj) 100 ml @ 400 mls/hr Q12H IV 10/17/16 18:00 10/26/16 06:22 (Epogen Inj) 10,000 units UNSCH PRN IV 10/21/16 09:15 10/25/16 08:32 (Renvela) 1,600 mg TIDAC PO 10/24/16 17:00 10/25/16 15:23 (Megace) 40 mg Q12HR PO 10/24/16 21:00 10/26/16 09:15 A/P Assessment and Plan Patient is a 41-year-old female with a PMH of HTN, ESRD on HD M/W/F and HIV ( CD4 35 on 06/24/13, HIV RNA undetectable) on HAART who presented to the ER w/ complaints of generalized malaise, fever and chills x3 days. Sepsis secondary to Catheter Associated Bacteremia with MRSA: Met sepsis criteria with Tmax 101.6, tachycardia HR 116, source-bacteremia. + Immunocompromised, h/o HIV on HAART. +Right Chest HD Cath. S/p IVFs. - Blood Cultures 10/12 positive for MRSA, Enterococcus Bacteremia. Review blood cultures from 10/16 also growing MRSA. - Successful vas catheter placement 10/14/16 - Catheter tip culture MRSA, as per ID specialist Persistent MRSA, Enterococcus Bacteremia Persistent despite cath removal, septic thrombophlebitis ? by ID specialist, Endocarditis Cath related Sepsis, recommended to continue Vancomycin, Ampicillin, Doppler UE bilaterally r/o septic thrombophlebitis, echocardiogram showed EF 50-55%, Tricuspid anterior leaflet vegetation Status post REN performed today by prescription benefit specialist Doctor Rubens Laughlin REN showed Tricuspid valve Endocarditis with Mild TR, Post Procedure patient with Hypotension, nausea and vomit. today stable no complaint, as per ID specialist to continue Vancomycin with Dialysis 3 times per week until 11/29/16, continue Ampicillin 2 gram IV every 12 hours until 11/29/16, Cardiothoracic surgery for Valve Surgery. no perm Cath until complete full antibiotic management. HIV: Undetectable. Currently on HAART, resume home medications. Continue outpatient f/up with ID. ESRD on HD: M/W/F. Follows w/ Dr. Rangel. had HD today. - Nephrology following to resume HD. Perm Cath once antibiotics finished. - AV fistula placed in August 2016. Not yet ready for use. - Vancomycin with dialysis per ID. and No Perm cath until blood cultures negative for five days. HTN: - Controlled. Anemia, macrocytic - Possibly related to chronic disease, end-stage renal disease. - Monitor trend - Epo as needed per nephrology. Constipation Improved. DVT Prophylaxis: Heparin sq Discussed with Patient, all questions answered to the best of my abilities. No changes to anterior assessment. Discharge Planning Not yet cleared for discharge. will need prolonged antibiotic management. Papo Dunham MD Oct 26, 2016 11:55
--- NOTE | 2016-10-26 12:46 | MB ---
cc: OUMAR OLIVERA MD DATE OF CONSULTATION: 10/26/2016 REASON FOR CONSULTATION: Tricuspid endocarditis. HISTORY Miss Wynn is a 41-year-old young lady with a known history of HIV and end-stage renal disease on hemodialysis, who now presents with a presenting complaint of fever, cough, night sweats and chills. The patient was admitted and has undergone further workup including blood cultures which is positive for gram-positive cocci on the 5th as well as an echocardiogram which revealed tricuspid vegetation. Repeat REN confirms the presence of a vegetation on tricuspid valve with preserved ventricular function and mild tricuspid regurgitation. I am now consulted for surgical opinion of her echographic findings. At present time she is hemodynamically stable and comfortable on room air. Denies any chest pressure or chest pain. PAST MEDICAL HISTORY 1. Significant for HIV as described above. 2. End-stage renal disease on hemodialysis. 3. Hypertension. 4. Thrombocytopenia. PAST SURGICAL HISTORY 1. Remarkable for bilateral cataracts 2. AV fistula 3. Vas catheter. ALLERGIES FERUMOXYTOL MULTIDRUG RESISTANT ORGANISMS SOCIAL HISTORY Denies any history smoking, alcohol use or illicit drug use. FAMILY HISTORY: Family history is noncontributory. REVIEW OF SYSTEMS As above. All other parameters are negative. PHYSICAL EXAMINATION: VITAL SIGNS: She is 160 cm tall, weighs 47 kg, blood pressure is 116/67 with a heart rate of 83, respiratory rate is 20 and she is afebrile. HEAD, EYES, EARS, NOSE, AND THROAT: Normocephalic, atraumatic. Pupils are reactive. Extraocular muscles intact. NECK: No cervical lymphadenopathy, carotid bruits or JVD. CARDIOVASCULAR SYSTEM: Cardiovascular is regular rate rhythm. Normal S1-S2 without gallops, rubs or murmurs. LUNGS: Relatively clear to auscultation with good air exchange. ABDOMEN: The abdomen is soft, nontender, nondistended, normal active bowel sounds, no hepatosplenomegaly. EXTREMITIES: Bilateral lower extremity pulses are intact without cyanosis, clubbing or edema. No venous varicosities. NEUROLOGIC: Intact with no focal deficits. IMPRESSION 1. Tricuspid endocarditis. 2. Bacteremia. 3. HIV 4. End-stage renal disease. 5. Sepsis 6. hypertension. PLAN The clinical and echo findings were discussed in detail with the patient. Treatment and therapeutic options available including surgical intervention was also detailed. My impression at this point is that she is to continue with the 6 to 8-week course of IV antibiotic therapy and repeat the echo at that time. Should there be a persistent vegetation or associated tricuspid insufficiency, then surgical intervention may be discussed at that time. Given her underlying medical comorbidities, frailty, as well as cachexia, surgical intervention will carry a significant risk for operative and perioperative morbidity mortality. This was relayed to the patient and all questions answered. She agrees with the plan and will get a repeat echo in 6-8 weeks. Thank you for allowing me to see the patient. Oumar Cho /10:43 AM /12:09 PM PB
--- NOTE | 2016-10-26 19:19 | HHI.NPPN ---
Subjective Renal Failure: Chronic, End Stage Renal Disease Additional Remarks eating dinner, no acute complaints Review of Systems Gastrointestinal Gastrointestinal: Constipation GI Remarks loss of appetite Psych Psych: Depression Objective Data Data 10/25/16 10/26/16 19:00 07:00 Intake Total 580 ml 1200 ml Output Total 3000 ml 0 ml Balance -2420 ml 1200 ml Intake Oral 480 ml 1200 ml IV Total 100 ml Output Urine Total 0 ml 0 ml Hemodialysis 3000 ml # Bowel Movements 0 0 Vital Signs Date Time Temp Pulse Resp B/P Pulse Ox O2 Delivery O2 Flow Rate FiO2 10/26/16 16:00 98.4 81 20 123/66 99 10/26/16 12:00 98.3 89 20 92/57 100 10/26/16 08:00 98.8 83 20 116/67 99 10/26/16 08:00 80 10/26/16 08:00 Room Air 10/26/16 05:50 97.8 84 16 121/70 99 10/26/16 00:08 98.6 84 16 101/61 98 10/25/16 20:00 Room Air 10/25/16 19:33 98.4 83 16 89/52 98 92/54 -: 10/24/16 0602 Tubes & Lines: Perma-Cath Physical Exam General Appearance: No Acute Distress, Comfortable, Anxious, Malnourished Ears & Nose Ears & Nose Exam: Nasal Mucosa [place] Throat Throat Exam: Oral Mucosa [place] & Moist Neck Neck Exam: Neck Supple Pulmonary Resp Exam: Clear Bilaterally, Breath Sounds Equal, No Distress Cardiology CV Exam: Regular, Normal Sinus Rhythm Gastrointestinal/Abdomen GI Exam: Soft, Non-Tender, Bowel Sounds Present, Positive Bowel Movement Musculoskeletal MS Exam: Joints Intact, Normal Gait, Normal Tone, Good Strength Integumentary Skin Exam: Clear, Warm, Dry, Intact Extremeties Extremities Exam: No Edema, Pedal Pulses Palpable Neurologic Neuro Exam: Alert, Awake, Oriented, Speech Clear, Moving All Extremities Psychiatric Psych Exam: Appropriate Responses Assessment/Plan Discussed Condition With: Patient Assessment Summary: Anemia of CKD, Proteinuria, Hypertension, End Stage Renal Disease Problem List: (1) ESRD (end stage renal disease) on dialysis Plan: Continue dialysis MWF, next HD Friday vascath in left IJ , functions well. Has 1st stage left brachiobasilic AVF in left arm, will need eventual 2nd stage transposition with Dr. Barrios. Avoid IVF. Gadolinium is contraindicated no dietary protein restriction required; on oral supplement continue Renvela , dosage increased (2) Sepsis Plan: catheter related sepsis. s/p PermCath removal on admission; most recent cultures from 10/18 are negative to date ID following, on vancomycin with HD ; also ampicillin REN showing TV endocarditis - 6 weeks of antibiotics, then further evaluation with CT surgery. For discharge planning, it is ok to place tunneled dialysis catheter this week and continue outpatient antibiotics with dialysis (current blood cultures are negative). Vancomycin may be given at dialysis. For ampicillin, a tunneled IJ catheter may be considered in addition to an IJ tunneled dialysis catheter. AV fistula is maturing well, but likely will require 2nd stage superficialization in a month or so, then several weeks until eventual catheter removal.. (3) Anemia Plan: continue epogen (4) HIV (human immunodeficiency virus infection) Plan: Continue HAART therapy. start Megace for appetite stimulation (5) Hypertension Plan: BP improved continue Antihypertensive as ordered Plan Sukumar Michelle MD Oct 26, 2016 19:19
[2016-10-26] MEDS: DOLUTEGRAVIR SODIUM 50 MG TAB PO SCH (21:03)
[2016-10-26] MEDS: RILPIVIRINE 25 MG TAB PO SCH (21:04)
[2016-10-27] VITALS: BP 120/71; PULSE 80; RESP 16; TEMP 99.2; O2SAT 99
[2016-10-27 04:00] VITALS: BP 133/77; PULSE 83; RESP 18; TEMP 98.3; O2SAT 100
[2016-10-27] MEDS: AMPICILLIN INJ 2,000 MG in SODIUM CHLORIDE 0.9% INJ 100 ML IV SCH ×2 (05:38→17:54)
--- NOTE | 2016-10-27 06:10 | HHI.PR ---
Subjective Remarks This is a pleasant 41 y/o who came to ER 10/12 with fever, as per patient started after receiving Hemodialysis, having pain in the left lateral chest wall area and also dry cough , cultured Gram Positive cocci on four bottles, as we know she has ESRD on HD, has Right Permanent Catheter now removed, status post line replacement, Left UE AV fistula, HD on M/W/F, MRSA Enterococcus Bacteremia, Persistent despite cath removal, septic thrombophlebitis ? by ID specialist, Endocarditis? Cath related Sepsis, recommended to continue Vancomycin, Ampicillin, [id number] on Rifampin oral for synergy Doppler UE bilaterally r/o septic thrombophlebitis, echocardiogram, 10/21: Seen in her bedroom, discussed with nurse miss Rucker and with ID specialist Doctor Gabrielle Green recommended today to continue Vancomycin with Dialysis, continue Ampicillin, Discontinued Rifampin due to multiple drug interactions with HIV medicines, no Perm-cath until blood culture is clear for five days, 10/22: Echocardiogram to rule out Endocarditis asked by ID specialist yesterday , 10/23: Seen in her bedroom, as per ID specialist recommended to continue Vancomycin with Dialysis, Continue Ampicillin REN requested to further evaluate the Tricuspid vegetation and valve function, Echo with TV lesion, will likely need antibiotics for six weeks, if REN shows compromised valve she will need CV Surgery eval, her blood culture negative in five days. 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 10/25: Stable no complaint discussed with nurse Miss Em no new issues, status post follow up by ID specialist, recommended to continue Vancomycin with Dialysis 3 times per week until 11/29/16. continue Ampicillin 2 gram IV every 12 hours until 11/29/16 Cardiothoracic Valve surgery, Need to determine what IV access to use for daily IV antibiotics, no perm cath until completion of IV antibiotics. 10/26: No changes o anterior assessment 10/27: Stable in her bedroom eating her brother by her side, no complaint, awaiting for final disposition in am tomorrow by Video Production Engineer for discharge on antibiotics. Objective Vital Signs Date Time Temp Pulse Resp B/P Pulse Ox O2 Delivery O2 Flow Rate FiO2 10/27/16 04:00 98.3 83 18 133/77 100 10/27/16 04:00 Room Air 10/27/16 00:00 Room Air 10/27/16 00:00 99.2 80 16 120/71 99 10/26/16 20:06 83 10/26/16 20:00 Room Air 10/26/16 20:00 98.9 86 16 102/58 100 10/26/16 16:00 98.4 81 20 123/66 99 10/26/16 12:00 98.3 89 20 92/57 100 10/26/16 08:00 98.8 83 20 116/67 99 10/26/16 08:00 80 10/26/16 08:00 Room Air I/O 10/26/16 10/26/16 10/26/16 10/27/16 10/27/16 10/27/16 07:00 15:00 23:00 07:00 15:00 23:00 Intake Total 0 ml 720 ml 340 ml 100 ml Output Total 0 ml 0 ml Balance 0 ml 720 ml 340 ml 100 ml Intake Oral 0 ml 720 ml 240 ml IV Total 100 ml 100 ml Output Urine Total 0 ml 0 ml # Voids 0 # Bowel Movements 0 1 1 Result Diagram: 10/24/16 0602 Imaging Last Impressions Upper Extremity Ultrasound 10/18/16 0000 Signed Impressions: Service Date/Time: Tuesday, October 18, 2016 16:53 - CONCLUSION: 1. No deep venous thrombosis identified. Left cephalic vein not clearly visualized. Fistula at the left between basilic vein and brachial artery. Doc Langley MD Catheter Placement X-Ray 10/14/16 1029 Signed Impressions: Service Date/Time: Friday, October 14, 2016 13:51 - CONCLUSION: Uncomplicated line placement as above. Mason Moore MD Central Venous Line 10/14/16 0000 Signed Impressions: Service Date/Time: Friday, October 14, 2016 00:00 - CONCLUSION: Uncomplicated Permcath removal. Mason Moore MD Chest X-Ray 10/12/16 1618 Signed Impressions: Service Date/Time: Wednesday, October 12, 2016 16:14 - CONCLUSION: No evidence of acute cardiopulmonary disease. Chet Pang MD Procedures REN 08/17/17 Other Results Laboratory Tests Test 10/24/16 06:02 Sodium Level 129 MEQ/L Potassium Level 5.1 MEQ/L Chloride Level 89 MEQ/L Carbon Dioxide Level 27.4 MEQ/L Anion Gap 13 MEQ/L Blood Urea Nitrogen 41 MG/DL Creatinine 7.76 MG/DL Estimat Glomerular Filtration 7 ML/MIN Rate Random Glucose 75 MG/DL Calcium Level 9.2 MG/DL Phosphorus Level 7.4 MG/DL Albumin 2.3 GM/DL Objective Remarks GENERAL: This is a thinly appearing, well-developed patient, in no apparent distress. SKIN: Warm and dry. HEENT: Normocephalic. Pupils equal round and reactive. Nose without bleeding. Airway patent. NECK: Trachea midline. No JVD. Supple. Vascular catheter in the right IJ. CARDIOVASCULAR: Regular rate and rhythm, tachycardia and systolic murmur 2/6 intensity. RESPIRATORY: Clear to auscultation. Breath sounds equal bilaterally. No wheezes , rales, or rhonchi. GASTROINTESTINAL: Abdomen soft, non-tender, nondistended. Bowel Sounds hypoactive. MUSCULOSKELETAL: Extremities without clubbing, cyanosis, or edema. NEUROLOGICAL: Awake and alert. No focal neuro deficit. Moves all extremities. Normal speech. PSYCH: Mood and affect appropriate. Medications and IVs Current Medications Medications (Trade) Dose Ordered Sig/Chinmay Route Start Time Stop Time Status Last Admin (NS Flush) 2 ml UNSCH PRN IV FLUSH 10/12/16 19:30 10/17/16 17:55 (NS Flush) 2 ml BID IV FLUSH 10/12/16 21:00 10/26/16 21:03 (Zofran Inj) 4 mg Q6H PRN IVP 10/12/16 19:30 10/12/16 23:31 (Heparin Inj) 5,000 units Q12H SQ 10/13/16 09:00 10/26/16 21:04 (Tylenol) 650 mg Q6H PRN PO 10/12/16 19:30 10/17/16 05:58 ([place] 5-325 Mg) 1 tab Q4H PRN PO 10/12/16 19:30 10/13/16 20:10 (Morphine Inj) 2 mg Q3H PRN IV 10/12/16 19:30 10/14/16 06:22 (Cass-Colace) 1 tab BID PO 10/12/16 21:00 10/26/16 21:03 (Milk Of Magnesia Liq) 30 ml Q12H PRN PO 10/12/16 19:30 10/14/16 21:08 (Senokot) 17.2 mg Q12H PRN PO 10/12/16 19:30 (Dulcolax Supp) 10 mg DAILY PRN RECTAL 10/12/16 19:30 (Lactulose Liq) 30 ml DAILY PRN PO 10/12/16 19:30 (Norvasc) 10 mg DAILY PO 10/13/16 09:00 10/25/16 12:27 (Ecotrin Ec) 81 mg DAILY PO 10/13/16 09:00 10/26/16 09:15 (Lipitor) 10 mg MOWEFR PO 10/14/16 20:00 10/25/16 12:27 (Nephrocaps) 1 cap DAILY PO 10/13/16 09:00 10/26/16 09:15 (Trandate) 300 mg TID PO 10/13/16 09:00 10/25/16 12:30 (Prinivil) 20 mg BID PO 10/12/16 21:00 10/23/16 15:49 (Valtrex) 1,000 mg DAILY PO 10/13/16 09:00 10/26/16 09:15 (Heparin Inj) 8,000 units UNSCH PRN IVF 10/13/16 10:15 (Mannitol Inj) 12.5 gm UNSCH PRN IV 10/13/16 10:15 (Albumin 25% Inj) 25 gm UNSCH PRN IV 10/13/16 10:15 (NS Flush) 5 ml UNSCH PRN IV FLUSH 10/13/16 10:15 (Heparin Inj) UNSCH PRN .XX 10/13/16 10:15 10/25/16 08:32 (Gentamicin (Dialysis) Inj) 20 mg UNSCH PRN IV 10/13/16 10:15 10/25/16 08:32 (Zofran Inj) 4 mg UNSCH PRN IV 10/13/16 10:15 (Tylenol) 650 mg UNSCH PRN PO 10/13/16 10:15 10/18/16 16:13 (Benadryl) 25 mg UNSCH PRN PO 10/13/16 10:15 10/15/16 06:08 (Nitrostat Sl) 0.4 mg UNSCH PRN SL 10/13/16 10:15 (Catapres) 0.1 mg UNSCH PRN PO 10/13/16 10:15 (Gelfoam 12 Mm/7 Mm Top) 1 foam UNSCH PRN TOP 10/13/16 10:15 (Epivir) 150 mg HS PO 10/13/16 21:00 10/26/16 21:03 (Edurant) 25 mg HS PO 10/13/16 21:00 10/26/16 21:04 (Lac-Hydrin 12% Lotion) 1 applic BID TOPICAL 10/14/16 12:00 10/26/16 21:04 ([place] 10-325 Mg) 1 tab Q4H PRN PO 10/14/16 11:00 10/15/16 22:46 (NS Flush) UNSCH PRN IVF 10/14/16 14:15 (Heparin Inj) UNSCH PRN IV FLUSH 10/14/16 14:15 (Miralax) 17 gm DAILY PO 10/15/16 15:30 10/25/16 12:27 Lactulose 30 ml 30 ml DAILY PO 10/16/16 09:15 10/25/16 12:26 (Ampicillin Inj/ NS Inj) 100 ml @ 400 mls/hr Q12H IV 10/17/16 18:00 10/27/16 05:38 (Epogen Inj) 10,000 units UNSCH PRN IV 10/21/16 09:15 10/25/16 08:32 (Renvela) 1,600 mg TIDAC PO 10/24/16 17:00 10/25/16 15:23 (Megace) 40 mg Q12HR PO 10/24/16 21:00 10/26/16 21:03 A/P Assessment and Plan Patient is a 41-year-old female with a PMH of HTN, ESRD on HD M/W/F and HIV ( CD4 35 on 06/24/13, HIV RNA undetectable) on HAART who presented to the ER w/ complaints of generalized malaise, fever and chills x3 days. Sepsis secondary to Catheter Associated Bacteremia with MRSA: Met sepsis criteria with Tmax 101.6, tachycardia HR 116, source-bacteremia. + Immunocompromised, h/o HIV on HAART. +Right Chest HD Cath. S/p IVFs. - Blood Cultures 10/12 positive for MRSA, Enterococcus Bacteremia. Review blood cultures from 10/16 also growing MRSA. - Successful vas catheter placement 10/14/16 - Catheter tip culture MRSA, as per ID specialist Persistent MRSA, Enterococcus Bacteremia Persistent despite cath removal, septic thrombophlebitis ? by ID specialist, Endocarditis Cath related Sepsis, recommended to continue Vancomycin, Ampicillin, Doppler UE bilaterally r/o septic thrombophlebitis, echocardiogram showed EF 50-55%, Tricuspid anterior leaflet vegetation Status post REN performed today by instructional systems specialist Doctor Rubens Laughlin REN showed Tricuspid valve Endocarditis with Mild TR, Post Procedure patient with Hypotension, nausea and vomit. today stable no complaint, as per ID specialist to continue Vancomycin with Dialysis 3 times per week until 11/29/16, continue Ampicillin 2 gram IV every 12 hours until 11/29/16, Cardiothoracic surgery for Valve Surgery. no perm Cath until complete full antibiotic management. HIV: Undetectable. Currently on HAART, resume home medications. Continue outpatient f/up with ID. ESRD on HD: M/W/F. Follows w/ Dr. Rangel. had HD today. - Nephrology following to resume HD. Perm Cath once antibiotics finished. - AV fistula placed in August 2016. Not yet ready for use. - Vancomycin with dialysis per ID. and No Perm cath until blood cultures negative for five days. HTN: - Controlled. Anemia, macrocytic - Possibly related to chronic disease, end-stage renal disease. - Monitor trend - Epo as needed per nephrology. Constipation Improved. DVT Prophylaxis: Heparin sq Discussed with Patient, all questions answered to the best of my abilities. No changes to anterior assessment. Discharge Planning Not yet cleared for discharge. will need prolonged antibiotic management. Papo Dunham MD Oct 27, 2016 06:10
[2016-10-27 08:00] VITALS: BP 141/81; PULSE 75; PULSE 79; RESP 18; TEMP 98.5; O2SAT 98
[2016-10-27] MEDS: SEVELAMER CARBONATE 800 MG TAB PO SCH ×3 (08:00→16:10)
[2016-10-27] MEDS: LISINOPRIL 20 MG TAB PO SCH ×2 (08:45→23:03)
[2016-10-27] MEDS: LABETALOL HCL 300 MG TAB PO SCH ×3 (08:45→17:57)
[2016-10-27] MEDS: MEGESTROL ACETATE 40 MG TAB PO SCH ×2 (08:45→23:03)
[2016-10-27] MEDS: LACTIC ACID (AMMONIUM LACTATE) 12% LOTION 225 GM BTL TOPICAL SCH ×2 (08:45→23:04)
[2016-10-27] MEDS: VITAMIN B CMPLX/VITC/FOLIC AC CAP PO SCH (08:45)
[2016-10-27] MEDS: ASPIRIN EC 81 MG TABEC PO SCH (08:45)
[2016-10-27] MEDS: valACYclovir HCL 500 MG TAB PO SCH (08:45)
[2016-10-27] MEDS: DOCUSATE SODIUM 50 MG/SENNA 8.6 MG TAB PO SCH ×2 (09:00→23:02)
[2016-10-27] MEDS: HEPARIN SODIUM - SQ 10,000 UNITS/ML VIAL SQ SCH ×2 (09:00→23:01)
[2016-10-27] MEDS: LACTULOSE SYRUP 20 GM/30 ML CUP PO SCH (09:00)
[2016-10-27] MEDS: POLYETHYLENE GLYCOL 17 GM PKG PO SCH (09:00)
[2016-10-27] MEDS: SODIUM CHLORIDE 0.9% FLUSH 10 ML FLUSH IV FLUSH SCH ×2 (09:00→23:01)
[2016-10-27 12:00] VITALS: BP 101/55; PULSE 77; RESP 18; TEMP 99; O2SAT 98
[2016-10-27 16:01] VITALS: BP 111/69; PULSE 80; RESP 18; TEMP 97.3; O2SAT 100
--- NOTE | 2016-10-27 16:38 | HHI.NPPN ---
Subjective Renal Failure: Chronic, End Stage Renal Disease Additional Remarks Sitting in bed, no acute complaints Review of Systems Gastrointestinal Gastrointestinal: Constipation GI Remarks loss of appetite Psych Psych: Depression Objective Data Data Vital Signs Date Time Temp Pulse Resp B/P (MAP) Pulse Ox O2 Delivery O2 Flow Rate FiO2 10/27/16 12:00 99.0 77 18 101/55 (70) 98 Manual Cuff/Palpation 10/27/16 08:00 98.5 79 18 141/81 (101) 98 Manual Cuff/Palpation 10/27/16 07:15 Room Air 10/27/16 04:00 98.3 83 18 133/77 (95) 100 10/27/16 04:00 Room Air 10/27/16 00:00 Room Air 10/27/16 00:00 99.2 80 16 120/71 (87) 99 10/26/16 20:06 83 10/26/16 20:00 Room Air 10/26/16 20:00 98.9 86 16 102/58 (73) 100 -: 10/24/16 0602 Tubes & Lines: Perma-Cath Physical Exam General Appearance: No Acute Distress, Comfortable, Anxious, Malnourished Ears & Nose Ears & Nose Exam: Nasal Mucosa [place] Throat Throat Exam: Oral Mucosa [place] & Moist Neck Neck Exam: Neck Supple Pulmonary Resp Exam: Clear Bilaterally, Breath Sounds Equal, No Distress Cardiology CV Exam: Regular, Normal Sinus Rhythm Gastrointestinal/Abdomen GI Exam: Soft, Non-Tender, Bowel Sounds Present, Positive Bowel Movement Musculoskeletal MS Exam: Joints Intact, Normal Gait, Normal Tone, Good Strength Integumentary Skin Exam: Clear, Warm, Dry, Intact Extremeties Extremities Exam: No Edema, Pedal Pulses Palpable Neurologic Neuro Exam: Alert, Awake, Oriented, Speech Clear, Moving All Extremities Psychiatric Psych Exam: Appropriate Responses Assessment/Plan Discussed Condition With: Patient Assessment Summary: Anemia of CKD, Proteinuria, Hypertension, End Stage Renal Disease Problem List: (1) ESRD (end stage renal disease) on dialysis ICD Codes: N18.6 - End stage renal disease; Z99.2 - Dependence on renal dialysis Status: Acute Plan: Continue dialysis MWF, next HD tomorrow. Vascath in left IJ , functions well. Has 1st stage left brachiobasilic AVF in left arm, will need eventual 2nd stage transposition with Dr. Barrios. Avoid IVF. Gadolinium is contraindicated no dietary protein restriction required; on oral supplement continue Renvela , dosage increased (2) Sepsis ICD Codes: A41.9 - Sepsis, unspecified organism Status: Acute Plan: Catheter related sepsis. s/p PermCath removal on admission; most recent cultures from 10/18 are negative to date ID following, on vancomycin with HD ; also ampicillin REN showing TV endocarditis - 6 weeks of antibiotics, then further evaluation with CT surgery. For discharge planning, plan to place tunneled dialysis catheter this week and continue outpatient antibiotics with dialysis (current blood cultures are negative). Vancomycin may be given at dialysis. For ampicillin, a tunneled IJ catheter may be considered in addition to an IJ tunneled dialysis catheter. Can evaluate with IR this week. AV fistula is maturing well, but likely will require 2nd stage superficialization in a month or so, then several weeks until eventual catheter removal.. (3) Anemia ICD Codes: D64.9 - Anemia Status: Acute Plan: continue epogen (4) HIV (human immunodeficiency virus infection) ICD Codes: Z21 - Human immunodeficiency virus (HIV) infection Status: Chronic Plan: Continue HAART therapy. start Megace for appetite stimulation (5) Hypertension ICD Codes: I10 - Hypertension Status: Chronic Plan: BP improved continue Antihypertensive as ordered Plan Sukumar Michelle MD Oct 27, 2016 16:38
[2016-10-27 20:00] VITALS: BP 109/70; PULSE 77; PULSE 79; RESP 16; TEMP 98.5; O2SAT 95
[2016-10-27] MEDS: DOLUTEGRAVIR SODIUM 50 MG TAB PO SCH (23:02)
[2016-10-27] MEDS: RILPIVIRINE 25 MG TAB PO SCH (23:02)
[2016-10-28] VITALS (8 sets, daily range): BP systolic 119–145; BP diastolic 64–82; PULSE 75–95; RESP 17–20; TEMP 97.6–99.4; O2SAT 94–100
[2016-10-28] MEDS: AMPICILLIN INJ 2,000 MG in SODIUM CHLORIDE 0.9% INJ 100 ML IV SCH ×2 (06:36→17:18)
[2016-10-28] MEDS: SEVELAMER CARBONATE 800 MG TAB PO SCH ×4 (08:00→16:30)
[2016-10-28] MEDS: POLYETHYLENE GLYCOL 17 GM PKG PO SCH ×2 (09:00→13:59)
[2016-10-28] MEDS: LACTULOSE SYRUP 20 GM/30 ML CUP PO SCH ×2 (09:00→13:57)
[2016-10-28] MEDS: DOCUSATE SODIUM 50 MG/SENNA 8.6 MG TAB PO SCH ×3 (09:00→22:34)
[2016-10-28 09:57] LABS: BICARBONATE 20.6 MEQ/L (21.0-32.0); POTASSIUM 5.3 MEQ/L (3.5-5.1)
[2016-10-28 10:17] LABS: BASOPHIL # 0.1 TH/MM3 (0-0.2); BASOPHIL % 0.9 % (0.0-2.0); EOSINOPHIL # 0.4 TH/MM3 (0-0.4); HEMATOCRIT 29.8 % (35.0-46.0); LYMPH % 12.2 % (9.0-44.0); LYMPHOCYTE # 1.4 TH/MM3 (1.0-4.8); MEAN CELL VOLUME 102.8 FL (80.0-100.0); MEAN CORPUSCULAR HEMOGLOBIN 33.5 PG (27.0-34.0); MEAN CORPUSCULAR HGB CONC 32.6 % (32.0-36.0); MONO % 6.6 % (0.0-8.0); NEUT % 77.3 % (16.0-70.0); PLATELET COUNT 492 TH/MM3 (150-450); RED CELL DISTRIBUTION WIDTH 17.9 % (11.6-17.2); WHITE BLOOD COUNT 11.7 TH/MM3 (4.0-11.0)
[2016-10-28 10:19] LABS: HEMO FLAGS AUTO DIFF
--- NOTE | 2016-10-28 11:06 | HHI.PR ---
Subjective Remarks This is a pleasant 41 y/o who came to ER 10/12 with fever, as per patient started after receiving Hemodialysis, having pain in the left lateral chest wall area and also dry cough , cultured Gram Positive cocci on four bottles, as we know she has ESRD on HD, has Right Permanent Catheter now removed, status post line replacement, Left UE AV fistula, HD on M/W/F, MRSA Enterococcus Bacteremia, Persistent despite cath removal, septic thrombophlebitis ? by ID specialist, Endocarditis? Cath related Sepsis, recommended to continue Vancomycin, Ampicillin, [id number] on Rifampin oral for synergy Doppler UE bilaterally r/o septic thrombophlebitis, echocardiogram, 10/21: Seen in her bedroom, discussed with nurse miss Rucker and with ID specialist Doctor Gabrielle Green recommended today to continue Vancomycin with Dialysis, continue Ampicillin, Discontinued Rifampin due to multiple drug interactions with HIV medicines, no Perm-cath until blood culture is clear for five days, 10/22: Echocardiogram to rule out Endocarditis asked by ID specialist yesterday , 10/23: ID specialist recommended to continue Vancomycin with Dialysis, Continue Ampicillin REN requested to further evaluate the Tricuspid vegetation and valve function, Echo with TV lesion, will likely need antibiotics for six weeks, if REN shows compromised valve she will need CV Surgery eval, her blood culture negative in five days. 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 10/25: continue Vancomycin with Dialysis 3 times per week until 11/29/16. continue Ampicillin 2 gram IV every 12 hours until 11/29/16 Cardiothoracic Valve surgery, Need to determine what IV access to use for daily IV antibiotics, no perm cath until completion of IV antibiotics. 10/26: No changes o anterior assessment 10/27: No changes. seen in the presence of her Brother. 10/28: Stable in her bedroom, discussed with Doctor Irwin here to follow the patient recommended to continue with Vancomycin three times a week while on HD, continue Ampicillin 2 grams IV every 12 hours both until 11/29/16, follow new blood culture if negative in [address] a Perm cath no complaint by patient. Objective Vital Signs Date Time Temp Pulse Resp B/P (MAP) Pulse Ox O2 Delivery O2 Flow Rate FiO2 10/28/16 08:00 97.6 75 17 137/78 (97) 100 10/28/16 07:50 80 10/28/16 04:00 98.2 80 18 119/64 (82) 99 10/28/16 00:00 98.2 80 20 128/79 (95) 94 10/27/16 20:00 98.5 77 16 109/70 (83) 95 10/27/16 20:00 79 10/27/16 20:00 Room Air 10/27/16 16:01 97.3 80 18 111/69 (83) 100 10/27/16 12:00 99.0 77 18 101/55 (70) 98 Manual Cuff/Palpation I/O 10/27/16 10/27/16 10/27/16 10/28/16 10/28/16 10/28/16 07:00 15:00 23:00 07:00 15:00 23:00 Intake Total 340 ml 1060 ml 260 ml Output Total 0 ml Balance 340 ml 1060 ml 260 ml Intake Oral 240 ml 960 ml 260 ml IV Total 100 ml 100 ml Output Urine Total 0 ml # Voids 0 # Bowel Movements 0 1 0 Result Diagram: 10/28/16 0911 10/28/16 0811 Imaging Last Impressions Upper Extremity Ultrasound 10/18/16 0000 Signed Impressions: Service Date/Time: Tuesday, October 18, 2016 16:53 - CONCLUSION: 1. No deep venous thrombosis identified. Left cephalic vein not clearly visualized. Fistula at the left between basilic vein and brachial artery. Doc Langley MD Catheter Placement X-Ray 10/14/16 1029 Signed Impressions: Service Date/Time: Friday, October 14, 2016 13:51 - CONCLUSION: Uncomplicated line placement as above. Mason Moore MD Central Venous Line 10/14/16 0000 Signed Impressions: Service Date/Time: Friday, October 14, 2016 00:00 - CONCLUSION: Uncomplicated Permcath removal. Mason Moore MD Chest X-Ray 10/12/16 1618 Signed Impressions: Service Date/Time: Wednesday, October 12, 2016 16:14 - CONCLUSION: No evidence of acute cardiopulmonary disease. Chet Pang MD Procedures REN 10/24/16 Other Results Laboratory Tests Test 10/12/16 16:30 10/13/16 20:24 10/14/16 09:34 10/18/16 18:44 Differential Total Cells Counted 100 Neutrophils % (Manual) 76 % Band Neutrophils % 15 % Lymphocytes % 2 % Monocytes % 5 % Eosinophils % 2 % Neutrophils # (Manual) 15.0 TH/MM3 Toxic Vacuolation PRESENT Platelet Estimate LOW Platelet Morphology Comment ENLARGED Keratocytes OCC Lactic Acid Level 1.2 mmol/L Troponin I LESS THAN 0.02 NG/ML Blood Urea Nitrogen 88 MG/DL Creatinine 11.84 MG/DL Random Glucose 95 MG/DL Total Protein 8.1 GM/DL Albumin 2.5 GM/DL Calcium Level 7.7 MG/DL Alkaline Phosphatase 169 U/L Aspartate Amino Transf (AST/SGOT) 60 U/L Alanine Aminotransferase (ALT/SGPT) 45 U/L Total Bilirubin 1.9 MG/DL Sodium Level 129 MEQ/L Potassium Level 5.3 MEQ/L Chloride Level 93 MEQ/L Carbon Dioxide Level 19.5 MEQ/L Prothrombin Time 10.7 SEC Prothromb Time International Ratio 1.0 RATIO Activated Partial Thromboplast Time 43.9 SEC Random Vancomycin Level 37.7 COMMENT Test 10/19/16 05:00 10/24/16 06:02 10/28/16 08:11 10/28/16 09:11 Blood Urea Nitrogen 41 MG/DL 41 MG/DL 82 MG/DL Creatinine 6.54 MG/DL 7.76 MG/DL 12.52 MG/DL Random Glucose 87 MG/DL 75 MG/DL 118 MG/DL Calcium Level 8.9 MG/DL 9.2 MG/DL 7.8 MG/DL Magnesium Level 2.6 MG/DL Sodium Level 133 MEQ/L 129 MEQ/L 129 MEQ/L Potassium Level 4.2 MEQ/L 5.1 MEQ/L 5.3 MEQ/L Chloride Level 90 MEQ/L 89 MEQ/L 91 MEQ/L Carbon Dioxide Level 28.3 MEQ/L 27.4 MEQ/L 20.6 MEQ/L Albumin 2.3 GM/DL Phosphorus Level 7.4 MG/DL Anion Gap 17 MEQ/L Estimat Glomerular Filtration Rate 4 ML/MIN White Blood Count 11.7 TH/MM3 Red Blood Count 2.90 MIL/MM3 Hemoglobin 9.7 GM/DL Hematocrit 29.8 % Mean Corpuscular Volume 102.8 FL Mean Corpuscular Hemoglobin 33.5 PG Mean Corpuscular Hemoglobin Concent 32.6 % Red Cell Distribution Width 17.9 % Platelet Count 492 TH/MM3 Mean Platelet Volume 7.7 FL Neutrophils (%) (Auto) 77.3 % Lymphocytes (%) (Auto) 12.2 % Monocytes (%) (Auto) 6.6 % Eosinophils (%) (Auto) 3.0 % Basophils (%) (Auto) 0.9 % Neutrophils # (Auto) 9.0 TH/MM3 Lymphocytes # (Auto) 1.4 TH/MM3 Monocytes # (Auto) 0.8 TH/MM3 Eosinophils # (Auto) 0.4 TH/MM3 Basophils # (Auto) 0.1 TH/MM3 CBC Comment AUTO DIFF Objective Remarks GENERAL: This is a thinly appearing, well-developed patient, in no apparent distress. SKIN: Warm and dry. HEENT: Normocephalic. Pupils equal round and reactive. Nose without bleeding. Airway patent. NECK: Trachea midline. No JVD. Supple. Vascular catheter in the right IJ. CARDIOVASCULAR: Regular rate and rhythm, tachycardia and systolic murmur 2/6 intensity. RESPIRATORY: Clear to auscultation. Breath sounds equal bilaterally. No wheezes , rales, or rhonchi. GASTROINTESTINAL: Abdomen soft, non-tender, nondistended. Bowel Sounds hypoactive. MUSCULOSKELETAL: Extremities without clubbing, cyanosis, or edema. NEUROLOGICAL: Awake and alert. No focal neuro deficit. Moves all extremities. Normal speech. PSYCH: Mood and affect appropriate. Medications and IVs Current Medications Medications (Trade) Dose Ordered Sig/Chinmay Route Start Time Stop Time Status Last Admin (NS Flush) 2 ml UNSCH PRN IV FLUSH 10/12/16 19:30 10/17/16 17:55 (NS Flush) 2 ml BID IV FLUSH 10/12/16 21:00 10/27/16 23:01 (Zofran Inj) 4 mg Q6H PRN IVP 10/12/16 19:30 10/12/16 23:31 (Heparin Inj) 5,000 units Q12H SQ 10/13/16 09:00 10/27/16 23:01 (Tylenol) 650 mg Q6H PRN PO 10/12/16 19:30 10/17/16 05:58 ([place] 5-325 Mg) 1 tab Q4H PRN PO 10/12/16 19:30 10/13/16 20:10 (Morphine Inj) 2 mg Q3H PRN IV 10/12/16 19:30 10/14/16 06:22 (Cass-Colace) 1 tab BID PO 10/12/16 21:00 10/27/16 23:02 (Milk Of Magnesia Liq) 30 ml Q12H PRN PO 10/12/16 19:30 10/14/16 21:08 (Senokot) 17.2 mg Q12H PRN PO 10/12/16 19:30 (Dulcolax Supp) 10 mg DAILY PRN RECTAL 10/12/16 19:30 (Lactulose Liq) 30 ml DAILY PRN PO 10/12/16 19:30 (Norvasc) 10 mg DAILY PO 10/13/16 09:00 Future hold 10/27/16 08:45 (Ecotrin Ec) 81 mg DAILY PO 10/13/16 09:00 10/27/16 08:45 (Lipitor) 10 mg MOWEFR PO 10/14/16 20:00 10/25/16 12:27 (Nephrocaps) 1 cap DAILY PO 10/13/16 09:00 10/27/16 08:45 (Trandate) 300 mg TID PO 10/13/16 09:00 Future hold 10/27/16 08:45 (Prinivil) 20 mg BID PO 10/12/16 21:00 Future hold 10/27/16 23:03 (Valtrex) 1,000 mg DAILY PO 10/13/16 09:00 10/27/16 08:45 (Heparin Inj) 8,000 units UNSCH PRN IVF 10/13/16 10:15 (Mannitol Inj) 12.5 gm UNSCH PRN IV 10/13/16 10:15 (Albumin 25% Inj) 25 gm UNSCH PRN IV 10/13/16 10:15 (NS Flush) 5 ml UNSCH PRN IV FLUSH 10/13/16 10:15 (Heparin Inj) UNSCH PRN .XX 10/13/16 10:15 10/25/16 08:32 (Gentamicin (Dialysis) Inj) 20 mg UNSCH PRN IV 10/13/16 10:15 10/25/16 08:32 (Zofran Inj) 4 mg UNSCH PRN IV 10/13/16 10:15 (Tylenol) 650 mg UNSCH PRN PO 10/13/16 10:15 10/18/16 16:13 (Benadryl) 25 mg UNSCH PRN PO 10/13/16 10:15 10/15/16 06:08 (Nitrostat Sl) 0.4 mg UNSCH PRN SL 10/13/16 10:15 (Catapres) 0.1 mg UNSCH PRN PO 10/13/16 10:15 (Gelfoam 12 Mm/7 Mm Top) 1 foam UNSCH PRN TOP 10/13/16 10:15 Vancomycin HCl 1000 mg/Sodium Chloride 250 ml @ 250 mls/hr WITH DIALYSIS IV 10/13/16 10:15 10/25/16 08:32 (Epivir) 150 mg HS PO 10/13/16 21:00 10/27/16 23:02 (Edurant) 25 mg HS PO 10/13/16 21:00 10/27/16 23:02 (Lac-Hydrin 12% Lotion) 1 applic BID TOPICAL 10/14/16 12:00 10/27/16 23:04 ([place] 10-325 Mg) 1 tab Q4H PRN PO 10/14/16 11:00 10/15/16 22:46 (NS Flush) UNSCH PRN IVF 10/14/16 14:15 (Heparin Inj) UNSCH PRN IV FLUSH 10/14/16 14:15 (Miralax) 17 gm DAILY PO 10/15/16 15:30 10/25/16 12:27 (Lactulose Liq) 30 ml DAILY PO 10/16/16 09:15 10/25/16 12:26 Ampicillin Sodium 2000 mg/Sodium Chloride 100 ml @ 400 mls/hr Q12H IV 10/17/16 18:00 10/28/16 06:36 (Epogen Inj) 10,000 units UNSCH PRN IV 10/21/16 09:15 10/25/16 08:32 (Renvela) 1,600 mg TIDAC PO 10/24/16 17:00 10/25/16 15:23 (Megace) 40 mg Q12HR PO 10/24/16 21:00 10/27/16 23:03 A/P Assessment and Plan Patient is a 41-year-old female with a PMH of HTN, ESRD on HD M/W/F and HIV ( CD4 35 on 06/24/13, HIV RNA undetectable) on HAART who presented to the ER w/ complaints of generalized malaise, fever and chills x3 days. Sepsis secondary to Catheter Associated Bacteremia with MRSA: Met sepsis criteria with Tmax 101.6, tachycardia HR 116, source-bacteremia. + Immunocompromised, h/o HIV on HAART. +Right Chest HD Cath. S/p IVFs. - Blood Cultures 10/12 positive for MRSA, Enterococcus Bacteremia. Review blood cultures from 10/16 also growing MRSA. - Successful vas catheter placement 10/14/16 - Catheter tip culture MRSA, as per ID specialist Persistent MRSA, Enterococcus Bacteremia Persistent despite cath removal, septic thrombophlebitis ? 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 Currently on HAART, resume home medications. Continue outpatient f/up with ID. ESRD on HD: M/W/F. Follows w/ Dr. Rangel. had HD today. - Nephrology following to resume HD. Perm Cath once antibiotics finished. - AV fistula placed in August 2016. Not yet ready for use. - Vancomycin with dialysis per ID. if blood culture negative in [address] a new Perm cath. HTN: - Controlled. Anemia, macrocytic - Possibly related to chronic disease, end-stage renal disease. - Monitor trend - Epo as needed per nephrology. Constipation Improved. DVT Prophylaxis: Heparin sq Discussed with Patient, all questions answered to the best of my abilities. Discussed with ID specialist doctor Red Gayle. Discharge Planning Not yet cleared for discharge. will need prolonged antibiotic management. Papo Dunham MD Oct 28, 2016 11:06
--- NOTE | 2016-10-28 11:16 | HHI.NPPN ---
Subjective Renal Failure: Chronic, End Stage Renal Disease Interval History Seen during dialysis. She is afebrile. (Vero Ocampo) Review of Systems Gastrointestinal Gastrointestinal: Constipation GI Remarks loss of appetite (Vero Ocampo) Psych Psych: Depression (Vero Ocampo) Objective Data Data Vital Signs Date Time Temp Pulse Resp B/P (MAP) Pulse Ox O2 Delivery O2 Flow Rate FiO2 10/28/16 08:00 97.6 75 17 137/78 (97) 100 10/28/16 07:50 80 10/28/16 04:00 98.2 80 18 119/64 (82) 99 10/28/16 00:00 98.2 80 20 128/79 (95) 94 10/27/16 20:00 98.5 77 16 109/70 (83) 95 10/27/16 20:00 79 10/27/16 20:00 Room Air 10/27/16 16:01 97.3 80 18 111/69 (83) 100 10/27/16 12:00 99.0 77 18 101/55 (70) 98 Manual Cuff/Palpation (Vero Ocampo) -: 10/28/16 0911 10/28/16 0811 Tubes & Lines: Perma-Cath (Vero Ocampo) Physical Exam General Appearance: No Acute Distress, Comfortable, Anxious, Malnourished (Vero Ocampo) Ears & Nose Ears & Nose Exam: Nasal Mucosa [place] (Vero Ocampo) Throat Throat Exam: Oral Mucosa [place] & Moist (Vero Ocampo) Neck Neck Exam: Neck Supple (Vero Ocampo) Pulmonary Resp Exam: Clear Bilaterally, Breath Sounds Equal, No Distress (Vero Ocampo) Cardiology CV Exam: Regular, Normal Sinus Rhythm (Vero Ocampo) Gastrointestinal/Abdomen GI Exam: Soft, Non-Tender, Bowel Sounds Present, Positive Bowel Movement (Vero Ocampo) Musculoskeletal MS Exam: Joints Intact, Normal Gait, Normal Tone, Good Strength (Vero Ocampo) Integumentary Skin Exam: Clear, Warm, Dry, Intact (Vero Ocampo) Extremeties Extremities Exam: No Edema, Pedal Pulses Palpable (Vero Ocampo) Neurologic Neuro Exam: Alert, Awake, Oriented, Speech Clear, Moving All Extremities (Vero Ocampo) Psychiatric Psych Exam: Appropriate Responses (Vero Ocampo) Assessment/Plan Discussed Condition With: Patient Assessment Summary: Anemia of CKD, Proteinuria, Hypertension, End Stage Renal Disease Problem List: (1) ESRD (end stage renal disease) on dialysis ICD Codes: N18.6 - End stage renal disease; Z99.2 - Dependence on renal dialysis Status: Acute Plan: Seen during dialysis today on a 2K, 350 BFR, goal of 3L Continue dialysis MWF Vascath in left IJ , functions well. Has had 1st stage left brachiobasilic AVF in left arm, will need eventual 2nd stage transposition with Dr. Barrios. Plan is for permcath placement, but may need to wait until blood cultures clear or possibly after antibiotics have completed ; defer to ID Avoid IVF. Gadolinium is contraindicated no dietary protein restriction required; on oral supplement continue Renvela , dosage increased (2) Sepsis ICD Codes: A41.9 - Sepsis, unspecified organism Status: Acute Plan: Catheter related sepsis; PermCath was removed on admission; melinda has TV endocarditis; ID and CTS have evaluated will need 6 weeks of antibiotics: vanc to be given with HD; also on most recent cultures from 10/18 are negative to date ID following, on vancomycin with HD ; also ampicillin daily okay for tunneled Rodriguez catheter placement for antibiotics; D/W ID .. (3) Anemia ICD Codes: D64.9 - Anemia Status: Acute Plan: continue epogen (4) HIV (human immunodeficiency virus infection) ICD Codes: Z21 - Human immunodeficiency virus (HIV) infection Status: Chronic Plan: Continue HAART therapy. on Megace for appetite stimulation (5) Hypertension ICD Codes: I10 - Hypertension Status: Chronic Plan: BP improved continue Antihypertensive as ordered Plan (Vero Ocampo) Plan patient was seen and examined. Seen during dialysis. Discussed with ID, they want another set of blood cultures before PermCath placement. (Diego Paige MD) Vero Ocampo Oct 28, 2016 11:16 Diego Paige MD Oct 29, 2016 11:02
[2016-10-28 11:23] LABS: PLATELET ESTIMATE SMEAR HIGH (NORMAL); PLATELET MORPHOLOGY ENLARGED (NORMAL); SCAN/DIFF AUTO DIFF CONFIRMED
[2016-10-28] MEDS: MEGESTROL ACETATE 40 MG TAB PO SCH ×2 (13:57→22:33)
[2016-10-28] MEDS: LISINOPRIL 20 MG TAB PO SCH ×2 (13:57→22:34)
[2016-10-28] MEDS: VITAMIN B CMPLX/VITC/FOLIC AC CAP PO SCH (13:57)
[2016-10-28] MEDS: valACYclovir HCL 500 MG TAB PO SCH (13:57)
[2016-10-28] MEDS: LACTIC ACID (AMMONIUM LACTATE) 12% LOTION 225 GM BTL TOPICAL SCH ×2 (13:58→22:35)
[2016-10-28] MEDS: ATORVASTATIN 10 MG TAB PO SCH (13:58)
[2016-10-28] MEDS: LABETALOL HCL 300 MG TAB PO SCH ×3 (13:58→17:18)
[2016-10-28] MEDS: ASPIRIN EC 81 MG TABEC PO SCH (13:58)
[2016-10-28] MEDS: HEPARIN SODIUM - SQ 10,000 UNITS/ML VIAL SQ SCH ×3 (13:58→22:35)
[2016-10-28] MEDS: SODIUM CHLORIDE 0.9% FLUSH 10 ML FLUSH IV FLUSH SCH ×2 (13:59→21:00)
--- NOTE | 2016-10-28 17:26 | HHI.IDPN ---
Note Infectious Disease Note Patient feel okay. No complaints. Afebrile. REN showed lesion on the tricuspid valve. 1.4cm x .5 cm. Mild regurg. Blood culture 10/18 - no growth. Last positive Blood culture 10/16. PAST MEDICAL HISTORY: 1. End-stage renal disease. 2. HIV disease managed by the outpatient physician and the patient noted undetectable viral load. 3. Hypertension. 4. AV fistula for hemodialysis placed in August of 2016 (not yet ready for use). 5. Bilateral cataracts. ALLERGIES: IRON DEXTRAN. OBJECTIVE: Vital Signs Date Time Temp Pulse Resp B/P Pulse Ox O2 Delivery O2 Flow Rate FiO2 10/25/16 12:00 98.2 94 18 100/65 97 10/25/16 09:00 87 10/25/16 08:00 97.6 84 20 153/84 97 10/25/16 04:00 98.4 90 18 139/81 98 10/25/16 00:00 98.3 78 20 112/74 98 10/24/16 20:00 78 10/24/16 20:00 99.7 86 19 106/68 98 10/24/16 19:41 Room Air 10/24/16 16:00 98.5 85 20 138/74 98 Laboratory Tests Test 10/24/16 06:02 Sodium Level 129 MEQ/L Potassium Level 5.1 MEQ/L Chloride Level 89 MEQ/L Carbon Dioxide Level 27.4 MEQ/L Anion Gap 13 MEQ/L Blood Urea Nitrogen 41 MG/DL Creatinine 7.76 MG/DL Estimat Glomerular Filtration 7 ML/MIN Rate Random Glucose 75 MG/DL Calcium Level 9.2 MG/DL Phosphorus Level 7.4 MG/DL Albumin 2.3 GM/DL Microbiology Date/Time Procedure Status Source Growth 10/12/16 16:20 Aerobic Blood Culture - Preliminary Resulted Blood Peripheral S. Aureus Mrsa Group D Enterococcus 10/12/16 16:20 Anaerobic Blood Culture - Preliminary Resulted S. Aureus Mrsa 10/12/16 16:30 Aerobic Blood Culture - Preliminary Resulted Blood Peripheral S. Aureus Mrsa 10/12/16 16:30 Anaerobic Blood Culture - Preliminary Resulted S. Aureus Mrsa Group D Enterococcus 10/12/16 17:35 Influenza Types A,B Antigen (JAELYN) - Final Complete Nasal Washing NEGATIVE FOR FLU A AND B ANTIGEN.... PHYSICAL EXAMINATION: GENERAL: No acute distress. HEENT: Pupils reactive to light. No icterus. Oropharynx moist mucosa. No lesions. NECK: Supple without adenopathy. LUNGS: Clear breath sounds. HEART: Regular S1 and S2 without murmurs, rubs or gallops. ABDOMEN: Bowel sounds present, soft, no tenderness. EXTREMITIES: No clubbing, cyanosis or edema. SKIN: No rash. Warm and dry. NEUROLOGIC: Nonfocal. PSYCHIATRIC: Calm and cooperative. IMPRESSION: 1. 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 Enterococcus. CV surgery recommend treatment with antibiotics. Then repeat ECHO. 2. Catheter-related sepsis. Catheter culture had MRSA and enterococcus. Dialysis catheter removed. 3. End-stage renal disease. 4. HIV disease, which appears stable on current HAART therapy. RECOMMENDATIONS: 1. Continue to give the vancomycin with dialysis 3 times week until 11/29/16. 2. Continue Ampicillin 2 gram IV Q12H until 11/29/16. 3. Follow blood culture. Due to access issues blood cultures repeated today. If negative at 72 hours a permacath will be placed. Renal notes that patient cannot be sent home to be given outpatient dialysis via vas cath. 4. Placement of a Rodriguez catheter also for IV Ampicillin outpatient. Plan for discharge after access issue are resolved. Patient states that she is being considered for renal transplant by [facility]. Prudent to resolve all infection before she goes for [place] appt. Red Gayle MD Oct 28, 2016 17:26
[2016-10-28] MEDS: ACETAMINOPHEN 325 MG TAB PO PRN (17:59)
[2016-10-28] MEDS: RILPIVIRINE 25 MG TAB PO SCH (22:33)
[2016-10-28] MEDS: DOLUTEGRAVIR SODIUM 50 MG TAB PO SCH (22:33)
[2016-10-29] VITALS (7 sets, daily range): BP systolic 95–132; BP diastolic 54–75; PULSE 72–81; RESP 16–20; TEMP 97.6–98.9; O2SAT 99–100
[2016-10-29] MEDS: AMPICILLIN INJ 2,000 MG in SODIUM CHLORIDE 0.9% INJ 100 ML IV SCH ×2 (05:23→18:04)
[2016-10-29] MEDS: SODIUM CHLORIDE 0.9% FLUSH 10 ML FLUSH IV FLUSH SCH ×2 (07:54→20:56)
[2016-10-29] MEDS: SEVELAMER CARBONATE 800 MG TAB PO SCH ×3 (08:00→17:00)
[2016-10-29] MEDS: LACTULOSE SYRUP 20 GM/30 ML CUP PO SCH (09:00)
[2016-10-29] MEDS: POLYETHYLENE GLYCOL 17 GM PKG PO SCH (09:00)
[2016-10-29] MEDS: DOCUSATE SODIUM 50 MG/SENNA 8.6 MG TAB PO SCH ×2 (09:00→20:56)
[2016-10-29] MEDS: LACTIC ACID (AMMONIUM LACTATE) 12% LOTION 225 GM BTL TOPICAL SCH ×2 (09:00→20:55)
[2016-10-29] MEDS: LISINOPRIL 20 MG TAB PO SCH ×2 (09:17→20:56)
[2016-10-29] MEDS: valACYclovir HCL 500 MG TAB PO SCH (09:17)
[2016-10-29] MEDS: VITAMIN B CMPLX/VITC/FOLIC AC CAP PO SCH (09:17)
[2016-10-29] MEDS: MEGESTROL ACETATE 40 MG TAB PO SCH ×2 (09:17→20:55)
[2016-10-29] MEDS: HEPARIN SODIUM - SQ 10,000 UNITS/ML VIAL SQ SCH ×2 (09:18→20:55)
[2016-10-29] MEDS: ASPIRIN EC 81 MG TABEC PO SCH (09:18)
[2016-10-29] MEDS: LABETALOL HCL 300 MG TAB PO SCH ×3 (09:18→18:00)
--- NOTE | 2016-10-29 13:26 | HHI.NPPN ---
Subjective Renal Failure: Chronic, End Stage Renal Disease Interval History Dialyzed yesterday. Repeat blood cultures drawn yesterday. (Vero Ocampo) Review of Systems Gastrointestinal Gastrointestinal: Constipation GI Remarks loss of appetite (Vero Ocampo) Psych Psych: Depression (Vero Ocampo) Objective Data Data Vital Signs Date Time Temp Pulse Resp B/P (MAP) Pulse Ox O2 Delivery O2 Flow Rate FiO2 10/29/16 11:51 98.9 81 18 115/71 (86) 100 10/29/16 08:00 98.4 75 18 132/72 (92) 99 10/29/16 07:52 Room Air 21 10/29/16 04:00 98.5 74 20 109/64 (79) 99 10/29/16 01:00 Room Air 10/29/16 00:00 97.6 74 20 119/75 (90) 99 10/28/16 20:00 82 10/28/16 20:00 99.4 85 20 126/81 (96) 100 10/28/16 18:00 120/68 (85) 10/28/16 16:00 99.2 95 17 145/82 (103) 96 10/28/16 14:00 98.7 84 17 124/75 (91) 99 (Vero Ocampo) -: 10/28/16 0911 10/28/16 0811 Imaging Last Impressions Upper Extremity Ultrasound 10/18/16 0000 Signed Impressions: Service Date/Time: Tuesday, October 18, 2016 16:53 - CONCLUSION: 1. No deep venous thrombosis identified. Left cephalic vein not clearly visualized. Fistula at the left between basilic vein and brachial artery. Doc Langley MD Catheter Placement X-Ray 10/14/16 1029 Signed Impressions: Service Date/Time: Friday, October 14, 2016 13:51 - CONCLUSION: Uncomplicated line placement as above. Mason Moore MD Central Venous Line 10/14/16 0000 Signed Impressions: Service Date/Time: Friday, October 14, 2016 00:00 - CONCLUSION: Uncomplicated Permcath removal. Mason Moore MD Chest X-Ray 10/12/16 1618 Signed Impressions: Service Date/Time: Wednesday, October 12, 2016 16:14 - CONCLUSION: No evidence of acute cardiopulmonary disease. Chet Pang MD Tubes & Lines: Perma-Cath (Vero Ocampo B. BUSINESS MANAGER) Physical Exam General Appearance: Well Developed, No Acute Distress, Comfortable, Malnourished (TerrenceVero B. BUSINESS MANAGER) Ears & Nose Ears & Nose Exam: Nasal Mucosa [place] (TerrenceVero B. BUSINESS MANAGER) Throat Throat Exam: Oral Mucosa [place] & Moist (TerrenceVero B. BUSINESS MANAGER) Neck Neck Exam: Neck Supple, Trachea Midline (Terrence,Vero B. BUSINESS MANAGER) Pulmonary Resp Exam: Clear Bilaterally, Breath Sounds Equal, No Distress (Terrence,Vero B. BUSINESS MANAGER) Cardiology CV Exam: Regular, Normal Sinus Rhythm (Hermann Ocampoon B. BUSINESS MANAGER) Gastrointestinal/Abdomen GI Exam: Soft, Non-Tender, Bowel Sounds Present, Positive Bowel Movement (Hermann Ocampoon B. BUSINESS MANAGER) Musculoskeletal MS Exam: Joints Intact, Normal Gait, Normal Tone, Good Strength (Hermann Ocampoon B. BUSINESS MANAGER) Integumentary Skin Exam: Clear, Warm, Dry, Intact (Hermann Ocampoon B. BUSINESS MANAGER) Extremeties Extremities Exam: No Edema, Pedal Pulses Palpable (Hermann Ocampoon B. BUSINESS MANAGER) Neurologic Neuro Exam: Alert, Awake, Oriented, Speech Clear, Moving All Extremities (Hermann Ocampoon B. BUSINESS MANAGER) Psychiatric Psych Exam: Appropriate Responses (Vero Ocampo B. BUSINESS MANAGER) Assessment/Plan Discussed Condition With: Patient Assessment Summary: Anemia of CKD, Proteinuria, Hypertension, End Stage Renal Disease Problem List: (1) ESRD (end stage renal disease) on dialysis ICD Codes: N18.6 - End stage renal disease; Z99.2 - Dependence on renal dialysis Status: Acute Plan: 3L UF yesterday, continue dialysis support MWF Vascath in left IJ , functions well. Has had 1st stage left brachiobasilic AVF in left arm, will need eventual 2nd stage transposition with Dr. Barrios. Plan is for permcath placement, if blood cultures from 10/28 are negative x 72 hrs, can proceed with Permcath exchange Avoid IVF. Gadolinium is contraindicated no dietary protein restriction required; on oral supplement continue Renvela , check phosphorus level intermittently (2) Sepsis ICD Codes: A41.9 - Sepsis, unspecified organism Status: Acute Plan: Catheter related sepsis; PermCath was removed on admission; also has TV endocarditis; ID and CTS have evaluated will need 6 weeks of antibiotics: vancomycin to be given with HD until 11/29 ; also on ampicillin BID until 11/29 most recent cultures from 10/18 are negative to date ID following, managing antibiotics okay for tunneled Rodriguez catheter placement for antibiotics; D/W ID .. (3) Anemia ICD Codes: D64.9 - Anemia Status: Acute Plan: continue epogen (4) HIV (human immunodeficiency virus infection) ICD Codes: Z21 - Human immunodeficiency virus (HIV) infection Status: Chronic Plan: Continue HAART therapy. on Megace for appetite stimulation (5) Hypertension ICD Codes: I10 - Hypertension Status: Chronic Plan: BP improved continue Antihypertensive as ordered (Vero Ocapmo) Plan patient was seen and examined. Agree with above assessment and plan. (Diego Paige MD) Vero Ocampo Oct 29, 2016 13:26 Diego Paige MD Oct 29, 2016 16:31
--- NOTE | 2016-10-29 14:30 | HHI.PR ---
Subjective Remarks Patient reports she is doing okay. No fever or chills. No shortness of breath. Objective Vitals Vital Signs Date Time Temp Pulse Resp B/P (MAP) Pulse Ox O2 Delivery O2 Flow Rate FiO2 10/29/16 11:51 98.9 81 18 115/71 (86) 100 10/29/16 08:00 98.4 75 18 132/72 (92) 99 10/29/16 07:52 Room Air 21 10/29/16 04:00 98.5 74 20 109/64 (79) 99 10/29/16 01:00 Room Air 10/29/16 00:00 97.6 74 20 119/75 (90) 99 10/28/16 20:00 82 10/28/16 20:00 99.4 85 20 126/81 (96) 100 10/28/16 18:00 120/68 (85) 10/28/16 16:00 99.2 95 17 145/82 (103) 96 I/O 10/28/16 10/28/16 10/28/16 10/29/16 10/29/16 10/29/16 07:00 15:00 23:00 07:00 15:00 23:00 Intake Total 260 ml 840 ml 100 ml Output Total 0 ml 3000 ml Balance 260 ml -3000 ml 840 ml 100 ml Intake Oral 260 ml 840 ml IV Total 100 ml Output Urine Total 0 ml Hemodialysis 3000 ml # Voids 3 # Bowel Movements 0 Result Diagram: 10/28/16 0911 10/28/16 0811 Objective Remarks GENERAL: This is a well-nourished, well-developed patient, in no apparent distress. CARDIOVASCULAR: Normal rate and regular rhythm. 2/6 JAYNE murmur best heard in the tricuspid area. RESPIRATORY: Good respiratory efforts. Breath sounds equal and clear to auscultation bilaterally. GASTROINTESTINAL: Abdomen soft, non-tender, non-distended. Normal active bowel sounds MUSCULOSKELETAL: Extremities without cyanosis, or edema. NEURO: Alert & Oriented x4 to person, place, time, situation. Moves all ext x4 PSYCH: Appropriate mood and affect. A/P Problem List: (1) Sepsis ICD Code: A41.9 - Sepsis, unspecified organism Status: Acute (2) HIV (human immunodeficiency virus infection) ICD Code: Z21 - Human immunodeficiency virus (HIV) infection Status: Chronic (3) ESRD (end stage renal disease) on dialysis ICD Code: N18.6 - End stage renal disease; Z99.2 - Dependence on renal dialysis Status: Acute (4) Thrombocytopenia ICD Code: D69.6 - Thrombocytopenia, unspecified Status: Acute (5) HTN (hypertension) ICD Code: I10 - Essential (primary) hypertension Status: Acute Assessment and Plan 41-year-old female with a PMH of HTN, ESRD on HD M/W/F and HIV (CD4 35 on , HIV RNA undetectable) on HAART who presented to the ER w/ complaints of generalized malaise, fever and chills x3 days. Sepsis secondary to Catheter Associated Bacteremia with MRSA: Met sepsis criteria with Tmax 101.6, tachycardia HR 116, source-bacteremia. + Immunocompromised, h/o HIV on HAART. +Right Chest HD Cath. S/p IVFs. - Blood Cultures 10/12 positive for MRSA, Enterococcus Bacteremia. Review blood cultures from 10/16 also growing MRSA. - Successful vas catheter placement 10/14/16 - Catheter tip culture MRSA, as per ID specialist Persistent MRSA, Enterococcus Bacteremia Persistent despite cath removal, septic thrombophlebitis ? 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 HIV: Undetectable. Currently on HAART, resume home medications. Continue outpatient f/up with ID. ESRD on HD: M/W/F. Follows w/ Dr. Rangel. - Nephrology following for dialysis - AV fistula placed in August 2016. Not yet ready for use. - Vancomycin with dialysis per ID. per nephrology discussion with ID, okay to place a Rodriguez catheter. HTN: - Controlled. Anemia, macrocytic - Possibly related to chronic disease, end-stage renal disease. - Monitor trend - Epo as needed per nephrology. Constipation Improved. DVT Prophylaxis: Heparin sq Dru Wolfe MD Oct 29, 2016 14:30
[2016-10-29] MEDS: RILPIVIRINE 25 MG TAB PO SCH (20:54)
[2016-10-29] MEDS: DOLUTEGRAVIR SODIUM 50 MG TAB PO SCH (20:54)
[2016-10-30] VITALS (7 sets, daily range): BP systolic 107–135; BP diastolic 59–84; PULSE 69–94; RESP 16–18; TEMP 97.2–99; O2SAT 98–100
[2016-10-30 04:52] LABS: HEMATOCRIT 25.9 % (35.0-46.0); MEAN CORPUSCULAR HEMOGLOBIN 34.7 PG (27.0-34.0); PLATELET COUNT 401 TH/MM3 (150-450); RED BLOOD COUNT 2.47 MIL/MM3 (4.00-5.30); REVIEW FLAG FINAL; WHITE BLOOD COUNT 8.5 TH/MM3 (4.0-11.0)
[2016-10-30 05:22] LABS: BICARBONATE 24.1 MEQ/L (21.0-32.0); POTASSIUM 5.4 MEQ/L (3.5-5.1)
[2016-10-30] MEDS: AMPICILLIN INJ 2,000 MG in SODIUM CHLORIDE 0.9% INJ 100 ML IV SCH ×2 (05:52→18:47)
[2016-10-30] MEDS: SODIUM CHLORIDE 0.9% FLUSH 10 ML FLUSH IV FLUSH SCH ×2 (07:14→19:59)
[2016-10-30] MEDS: SEVELAMER CARBONATE 800 MG TAB PO SCH ×3 (08:00→17:00)
[2016-10-30] MEDS: POLYETHYLENE GLYCOL 17 GM PKG PO SCH (09:00)
[2016-10-30] MEDS: LACTULOSE SYRUP 20 GM/30 ML CUP PO SCH (09:00)
[2016-10-30] MEDS: DOCUSATE SODIUM 50 MG/SENNA 8.6 MG TAB PO SCH ×2 (09:00→20:00)
[2016-10-30] MEDS: LACTIC ACID (AMMONIUM LACTATE) 12% LOTION 225 GM BTL TOPICAL SCH ×2 (09:00→20:01)
[2016-10-30] MEDS: VITAMIN B CMPLX/VITC/FOLIC AC CAP PO SCH (09:49)
[2016-10-30] MEDS: LABETALOL HCL 300 MG TAB PO SCH ×3 (09:49→18:00)
[2016-10-30] MEDS: ASPIRIN EC 81 MG TABEC PO SCH (09:49)
[2016-10-30] MEDS: valACYclovir HCL 500 MG TAB PO SCH (09:49)
[2016-10-30] MEDS: LISINOPRIL 20 MG TAB PO SCH ×2 (09:50→20:00)
[2016-10-30] MEDS: HEPARIN SODIUM - SQ 10,000 UNITS/ML VIAL SQ SCH ×2 (09:50→20:00)
[2016-10-30] MEDS: MEGESTROL ACETATE 40 MG TAB PO SCH ×2 (09:50→19:59)
--- NOTE | 2016-10-30 12:47 | HHI.PR ---
Subjective Remarks Patient reports she is feeling okay. No chest pain or shortness of breath. No fevers. Objective Vitals Vital Signs Date Time Temp Pulse Resp B/P (MAP) Pulse Ox O2 Delivery O2 Flow Rate FiO2 10/30/16 10:16 Room Air 21 10/30/16 08:00 97.2 69 17 129/72 (91) 100 10/30/16 04:00 98.0 71 16 135/84 (101) 100 10/30/16 00:00 98.4 77 16 110/59 (76) 100 10/29/16 20:30 Room Air 10/29/16 20:00 72 10/29/16 20:00 98.5 73 16 95/54 (68) 100 10/29/16 16:00 98.2 74 18 104/59 (74) 100 I/O 10/29/16 10/29/16 10/29/16 10/30/16 10/30/16 10/30/16 07:00 15:00 23:00 07:00 15:00 23:00 Intake Total 100 ml 1060 ml 100 ml Balance 100 ml 1060 ml 100 ml Intake Oral 960 ml IV Total 100 ml 100 ml 100 ml # Bowel Movements 2 Result Diagram: 10/30/16 0358 10/30/16 0358 Objective Remarks GENERAL: This is a well-nourished, well-developed patient, in no apparent distress. CARDIOVASCULAR: Normal rate and regular rhythm. 2/6 JAYNE murmur best heard in the tricuspid area. RESPIRATORY: Good respiratory efforts. Breath sounds equal and clear to auscultation bilaterally. GASTROINTESTINAL: Abdomen soft, non-tender, non-distended. Normal active bowel sounds MUSCULOSKELETAL: Extremities without cyanosis, or edema. NEURO: Alert & Oriented x4 to person, place, time, situation. Moves all ext x4 PSYCH: Appropriate mood and affect. A/P Problem List: (1) Sepsis ICD Code: A41.9 - Sepsis, unspecified organism Status: Acute (2) HIV (human immunodeficiency virus infection) ICD Code: Z21 - Human immunodeficiency virus (HIV) infection Status: Chronic (3) ESRD (end stage renal disease) on dialysis ICD Code: N18.6 - End stage renal disease; Z99.2 - Dependence on renal dialysis Status: Acute (4) Thrombocytopenia ICD Code: D69.6 - Thrombocytopenia, unspecified Status: Acute (5) HTN (hypertension) ICD Code: I10 - Essential (primary) hypertension Status: Acute Assessment and Plan 41-year-old female with a PMH of HTN, ESRD on HD M/W/F and HIV (CD4 35 on , HIV RNA undetectable) on HAART who presented to the ER w/ complaints of generalized malaise, fever and chills x3 days. Sepsis secondary to Catheter Associated Bacteremia with MRSA: Met sepsis criteria with Tmax 101.6, tachycardia HR 116, source-bacteremia. + Immunocompromised, h/o HIV on HAART. +Right Chest HD Cath. S/p IVFs. - Blood Cultures 10/12 positive for MRSA, Enterococcus Bacteremia. Review blood cultures from 10/16 also growing MRSA. - Successful vas catheter placement 10/14/16 - Catheter tip culture MRSA, as per ID specialist Persistent MRSA, Enterococcus Bacteremia Persistent despite cath removal, septic thrombophlebitis ? 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 Once negative at 72 hours, patient can have a permacath for dialysis and a Rodriguez tunneled catheter for the antibiotics. Plan will be for home IV ampicillin and vancomycin with dialysis. HIV: Undetectable. Currently on HAART, resume home medications. Continue outpatient f/up with ID. ESRD on HD: M/W/. Follows w/ Dr. Rangel. - Nephrology following for dialysis - AV fistula placed in August 2016. Second stage procedure with vascular surgery. Not yet ready for use. - Vancomycin with dialysis per ID. HTN: - Controlled. Anemia, macrocytic - Possibly related to chronic disease, end-stage renal disease. - Monitor trend - Epo as needed per nephrology. Constipation Improved. DVT Prophylaxis: Heparin sq Discharge Planning Case management for DC planning. Patient will need home IV antibiotics. Dru Wolfe MD Oct 30, 2016 12:47
--- NOTE | 2016-10-30 14:01 | HHI.NPPN ---
Subjective Renal Failure: Chronic, End Stage Renal Disease Interval History Afebrile. Blood cultures are negative to date. Due today for dialysis. (Vero Ocampo) Review of Systems Gastrointestinal Gastrointestinal: Constipation GI Remarks loss of appetite (Vero Ocampo) Psych Psych: Depression (Vero Ocampo) Objective Data Data Vital Signs Date Time Temp Pulse Resp B/P (MAP) Pulse Ox O2 Delivery O2 Flow Rate FiO2 10/30/16 12:11 98.5 75 18 121/68 (85) 100 10/30/16 10:16 Room Air 21 10/30/16 08:00 97.2 69 17 129/72 (91) 100 10/30/16 04:00 98.0 71 16 135/84 (101) 100 10/30/16 00:00 98.4 77 16 110/59 (76) 100 10/29/16 20:30 Room Air 10/29/16 20:00 72 10/29/16 20:00 98.5 73 16 95/54 (68) 100 10/29/16 16:00 98.2 74 18 104/59 (74) 100 (Vero Ocampo) -: 10/30/16 0358 10/30/16 0358 Tubes & Lines: Perma-Cath (Vero Ocampo) Physical Exam General Appearance: Well Developed, No Acute Distress, Comfortable, Malnourished (Vero Ocampo) Ears & Nose Ears & Nose Exam: Nasal Mucosa Parachute (Vero Ocampo) Throat Throat Exam: Oral Mucosa Parachute & Moist (Vero Ocampo) Neck Neck Exam: Neck Supple, Trachea Midline (Vero Ocampo) Pulmonary Resp Exam: Clear Bilaterally, Breath Sounds Equal, No Distress (Vero Ocampo) Cardiology CV Exam: Regular, Normal Sinus Rhythm (Vero Ocampo) Gastrointestinal/Abdomen GI Exam: Soft, Non-Tender, Bowel Sounds Present, Positive Bowel Movement (Vero Ocampo) Musculoskeletal MS Exam: Joints Intact, Normal Gait, Normal Tone, Good Strength (Vero Ocampo) Integumentary Skin Exam: Clear, Warm, Dry, Intact (Vero Ocampo) Extremeties Extremities Exam: No Edema, Pedal Pulses Palpable (Vero Ocampo) Neurologic Neuro Exam: Alert, Awake, Oriented, Speech Clear, Moving All Extremities (Vero Ocampo) Psychiatric Psych Exam: Appropriate Responses (Vero Ocampo) Assessment/Plan Discussed Condition With: Patient Assessment Summary: Anemia of CKD, Proteinuria, Hypertension, End Stage Renal Disease Problem List: (1) ESRD (end stage renal disease) on dialysis ICD Codes: N18.6 - End stage renal disease; Z99.2 - Dependence on renal dialysis Status: Acute Plan: continue dialysis support MWF she is due today Vascath for dialysis is in left IJ and it functions well. To have permcath exchanged tomorrow if blood cultures from 10/28 remain negative stable from renal perspective Avoid IVF. Gadolinium is contraindicated no dietary protein restriction required; on oral supplement continue Renvela , check phosphorus level intermittently Has had 1st stage left brachiobasilic AVF in left arm, will need eventual 2nd stage transposition with Dr. Barrios. (2) Sepsis ICD Codes: A41.9 - Sepsis, unspecified organism Status: Acute Plan: Catheter related sepsis; PermCath was removed on admission; also has TV endocarditis; ID and CTS have evaluated will need 6 weeks of antibiotics: vancomycin to be given with HD until 11/29 ; also on ampicillin BID until 11/29; repeat Echo after treatment most recent cultures from 10/28 are negative to date ID following, managing antibiotics okay for tunneled Rodriguez catheter placement for antibiotics; D/W ID , will defer order placement to Dr. Gayle when he approves .. (3) Anemia ICD Codes: D64.9 - Anemia Status: Acute Plan: continue epogen (4) HIV (human immunodeficiency virus infection) ICD Codes: Z21 - Human immunodeficiency virus (HIV) infection Status: Chronic Plan: Continue HAART therapy. on Megace for appetite stimulation (5) Hypertension ICD Codes: I10 - Hypertension Status: Chronic Plan: BP improved continue Antihypertensive as ordered (Vero Ocampo) Plan patient was seen and examined. Agree with above assessment and plan. (Diego Paige MD) Vero Ocampo Oct 30, 2016 14:01 Diego Paige MD Oct 30, 2016 20:29
[2016-10-30] MEDS: GENTAMICIN SULFATE (DIALYSIS USE ONLY) 20 MG/2 ML VIAL IV PRN (16:27)
[2016-10-30] MEDS: EPOETIN ALFA 10,000 UNITS/ML VIAL IV PRN (16:27)
[2016-10-30] MEDS: SODIUM CHLORIDE 0.9% FLUSH 10 ML FLUSH IV FLUSH PRN (16:29)
[2016-10-30] MEDS: RILPIVIRINE 25 MG TAB PO SCH (19:59)
[2016-10-30] MEDS: ATORVASTATIN 10 MG TAB PO SCH (19:59)
[2016-10-30] MEDS: DOLUTEGRAVIR SODIUM 50 MG TAB PO SCH (19:59)
[2016-10-31] VITALS (8 sets, daily range): BP systolic 102–144; BP diastolic 58–82; PULSE 72–87; RESP 16–20; TEMP 97.6–98.9; O2SAT 98–100
[2016-10-31] MEDS: AMPICILLIN INJ 2,000 MG in SODIUM CHLORIDE 0.9% INJ 100 ML IV SCH ×2 (05:12→17:23)
[2016-10-31] MEDS: SEVELAMER CARBONATE 800 MG TAB PO SCH ×3 (08:00→16:26)
[2016-10-31 08:53] LABS: HEMATOCRIT 27.3 % (35.0-46.0); MEAN CELL VOLUME 104.7 FL (80.0-100.0); MEAN CORPUSCULAR HEMOGLOBIN 34.7 PG (27.0-34.0); MEAN CORPUSCULAR HGB CONC 33.1 % (32.0-36.0); PLATELET COUNT 399 TH/MM3 (150-450); RED BLOOD COUNT 2.61 MIL/MM3 (4.00-5.30); RED CELL DISTRIBUTION WIDTH 18.1 % (11.6-17.2); REVIEW FLAG FINAL; WHITE BLOOD COUNT 8.7 TH/MM3 (4.0-11.0)
[2016-10-31 08:55] LABS: BICARBONATE 25.7 MEQ/L (21.0-32.0); POTASSIUM 4.7 MEQ/L (3.5-5.1)
[2016-10-31] MEDS: POLYETHYLENE GLYCOL 17 GM PKG PO SCH (09:00)
[2016-10-31] MEDS: DOCUSATE SODIUM 50 MG/SENNA 8.6 MG TAB PO SCH ×2 (09:00→20:10)
[2016-10-31] MEDS: HEPARIN SODIUM - SQ 10,000 UNITS/ML VIAL SQ SCH ×2 (09:00→20:11)
[2016-10-31] MEDS: LACTULOSE SYRUP 20 GM/30 ML CUP PO SCH (09:00)
[2016-10-31] MEDS: LABETALOL HCL 300 MG TAB PO SCH ×3 (09:19→17:23)
[2016-10-31] MEDS: ASPIRIN EC 81 MG TABEC PO SCH (09:19)
[2016-10-31] MEDS: LISINOPRIL 20 MG TAB PO SCH ×2 (09:19→20:15)
[2016-10-31] MEDS: VITAMIN B CMPLX/VITC/FOLIC AC CAP PO SCH (09:19)
[2016-10-31] MEDS: valACYclovir HCL 500 MG TAB PO SCH (09:19)
[2016-10-31] MEDS: MEGESTROL ACETATE 40 MG TAB PO SCH ×2 (09:19→20:09)
[2016-10-31] MEDS: SODIUM CHLORIDE 0.9% FLUSH 10 ML FLUSH IV FLUSH SCH ×2 (09:20→20:11)
[2016-10-31] MEDS: LACTIC ACID (AMMONIUM LACTATE) 12% LOTION 225 GM BTL TOPICAL SCH ×2 (09:21→20:15)
--- NOTE | 2016-10-31 12:36 | HHI.FF ---
Infusion Therapy Location of Infusion Therapy: [facility] IV Infusion Order Patient Information Patient Weight 48.1 kg Diagnosis: Coded Allergies: ferumoxytol (Unverified Allergy, Severe, IRON INJECTIONS, 10/22/16) PT STATES THEY HAVE NOW CHANGED BRANDS OF IRON & SHE IS ABLE TO TAKE THE NEW BRAND OF IRON *MDRO Multi-Drug Resistant Organism (Verified Adverse Reaction, Unknown, ) MRSA PCR 09/07/16 Positive [facility] - E. cloacae (peritoneal fluid) - 05/04/16 MRSA (blood) 10/12/16, (cath tip) 10/14/16 Administer Medication Ampicillin 12 grams IV Stop Treatment: Nov 29, 2016 Administer Medication Vancomycin q 48 hours w/Hemodialysis M,W,F Stop Treatment: Nov 29, 2016 Additional Information Venous access: Tunneled Catheter Additional Instructions [x] Peripheral flush and dressing changes per protocol [x] Implanted port and central line repairer: * Implanted port: 10 ml Normal Saline followed by 5 ml Heparin 100 units/ml Heparin flush after each use and monthly to maintain. [] May leave port accessed during therapy. [] May leave peripheral site accessed for duration of therapy. [x] If patient has SOB or respiratory distress, check oxygen saturation. If less than 90% or clinical signs of respiratory distress, administer oxygen at 2 L/min. via nasal cannula and notify physician. [x] Anaphylaxis/Reaction orders: * Stop infusion. * Keep IV line open with saline flush. * Notify physician. * Monitor vital signs every 15 minutes until symptoms resolve. * Check Oxygen saturation; Oxygen at 2 L/min. via nasal cannula if less than 90% or clinical signs of respiratory distress. * Administer diphenhydramine (Benadryl) 25 mg IV STAT, (unless patient has received as pre-med). May repeat once, if necessary. * Solu-Cortef 250 mg IVP over 30-60 seconds, use 100 mg vials for each dissolution. * Epinephrine (1mg/1 ml) 0.3 mg subcutaneously or IVP now with any signs of respiratory distress. * Check with physician for new additional pre-med orders if patient is re- challenged or re-treated. [x] May remove PICC line when treatment complete, after confirming with Physician. [x] If the patient is admitted to the hospital, the ED, or transferred via [facility] , complete transfer form including medication reconciliation order sheet. Red Gayle MD Oct 31, 2016 12:36
--- NOTE | 2016-10-31 12:46 | HHI.IDPN ---
Note Infectious Disease Note Patient feel okay. No complaints. No fever, sweats or chills. No SOB. States her body feels warm but the temp is normal. REN showed lesion on the tricuspid valve. 1.4cm x .5 cm. Mild regurg. Blood culture 10/28 - no growth. Blood culture 10/18 - no growth. Last positive Blood culture 10/16. PAST MEDICAL HISTORY: 1. End-stage renal disease. 2. HIV disease managed by the outpatient physician and the patient noted undetectable viral load. 3. Hypertension. 4. AV fistula for hemodialysis placed in August of 2016 (not yet ready for use). 5. Bilateral cataracts. ALLERGIES: IRON DEXTRAN. OBJECTIVE: Vital Signs Date Time Temp Pulse Resp B/P (MAP) Pulse Ox O2 Delivery O2 Flow Rate FiO2 10/31/16 12:00 98.4 72 16 109/66 (80) 100 10/31/16 09:16 Room Air 10/31/16 08:00 97.6 76 20 144/82 (102) 98 10/31/16 04:00 98.5 85 18 138/75 (96) 98 10/31/16 00:00 98.9 83 18 102/62 (75) 98 10/30/16 20:01 Room Air 10/30/16 20:00 99.0 81 16 107/61 (76) 98 10/30/16 18:00 98.1 94 18 114/76 (89) 98 PHYSICAL EXAMINATION: GENERAL: No acute distress. HEENT: Pupils reactive to light. No icterus. Oropharynx moist mucosa. No lesions. NECK: Supple without adenopathy. LUNGS: Clear breath sounds. HEART: Regular S1 and S2. No murmurs, rubs or gallops. ABDOMEN: Bowel sounds present, soft, no tenderness. EXTREMITIES: No clubbing, cyanosis or edema. No peripheral embolic phenomena. SKIN: No rash. Warm and dry. NEUROLOGIC: Nonfocal. PSYCHIATRIC: Calm and cooperative. IMPRESSION: 1. 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 Enterococcus. CV surgery recommend treatment with antibiotics. Then repeat ECHO. 2. Catheter-related sepsis. Catheter culture had MRSA and enterococcus. Dialysis catheter removed. 3. End-stage renal disease. 4. HIV disease, which appears stable on current HAART therapy. RECOMMENDATIONS: 1. Continue to give the vancomycin with dialysis 3 times week until 11/29/16. Infusion form filled out for outpatient. 2. Continue Ampicillin 2 gram IV Q12H until 11/29/16. Infusion form filled out for outpatient. 3. Permacath and tunnelled Rodriguez ordered for IV infusion and outpatient dialysis. Renal notes that patient cannot be sent home to be given outpatient dialysis via vas cath. 4. Repeat 2D ECHO after treatment is complete per CV surgery. Patient has been told about above plan. I have spoken to nephrology VETERINARY PHYSIOLOGIST, Dr Wolfe, radiology and case management about setting up antibiotics. She can be discharged from my standpoint once antibiotics are arranged. Red Gayle MD Oct 31, 2016 12:46
--- NOTE | 2016-10-31 14:53 | HHI.PR ---
Subjective Remarks Patient reports she is feeling okay. No chest pain or shortness of breath. Patient cleared to have permacath and Rodriguez catheter placed. Objective Vitals Vital Signs Date Time Temp Pulse Resp B/P (MAP) Pulse Ox O2 Delivery O2 Flow Rate FiO2 10/31/16 12:00 98.4 72 16 109/66 (80) 100 10/31/16 09:16 Room Air 10/31/16 09:16 76 10/31/16 08:00 97.6 76 20 144/82 (102) 98 10/31/16 04:00 98.5 85 18 138/75 (96) 98 10/31/16 00:00 98.9 83 18 102/62 (75) 98 10/30/16 20:01 Room Air 10/30/16 20:00 99.0 81 16 107/61 (76) 98 10/30/16 18:00 98.1 94 18 114/76 (89) 98 I/O 10/30/16 10/30/16 10/30/16 10/31/16 10/31/16 10/31/16 07:00 15:00 23:00 07:00 15:00 23:00 Intake Total 100 ml 100 ml 794 ml Output Total 3000 ml 0 ml Balance 100 ml -2900 ml 794 ml Intake Oral 480 ml IV Total 100 ml 100 ml 314 ml Output Urine Total 0 ml Hemodialysis 3000 ml # Bowel Movements 2 1 Result Diagram: 10/31/16 0710/31/16 0701 Objective Remarks GENERAL: This is a well-nourished, well-developed patient, in no apparent distress. CARDIOVASCULAR: Normal rate and regular rhythm. 2/6 JAYNE murmur best heard in the tricuspid area. RESPIRATORY: Good respiratory efforts. Breath sounds equal and clear to auscultation bilaterally. GASTROINTESTINAL: Abdomen soft, non-tender, non-distended. Normal active bowel sounds MUSCULOSKELETAL: Extremities without cyanosis, or edema. NEURO: Alert & Oriented x4 to person, place, time, situation. Moves all ext x4 PSYCH: Appropriate mood and affect. A/P Problem List: (1) Sepsis ICD Code: A41.9 - Sepsis, unspecified organism Status: Acute (2) HIV (human immunodeficiency virus infection) ICD Code: Z21 - Human immunodeficiency virus (HIV) infection Status: Chronic (3) ESRD (end stage renal disease) on dialysis ICD Code: N18.6 - End stage renal disease; Z99.2 - Dependence on renal dialysis Status: Acute (4) Thrombocytopenia ICD Code: D69.6 - Thrombocytopenia, unspecified Status: Acute (5) HTN (hypertension) ICD Code: I10 - Essential (primary) hypertension Status: Acute Assessment and Plan 41-year-old female with a PMH of HTN, ESRD on HD M/W/F and HIV (CD4 35 on , HIV RNA undetectable) on HAART who presented to the ER w/ complaints of generalized malaise, fever and chills x3 days. Sepsis secondary to Catheter Associated Bacteremia with MRSA: Met sepsis criteria with Tmax 101.6, tachycardia HR 116, source-bacteremia. + Immunocompromised, h/o HIV on HAART. +Right Chest HD Cath. S/p IVFs. - Blood Cultures 10/12 positive for MRSA, Enterococcus Bacteremia. Review blood cultures from 10/16 also growing MRSA. - Successful vas catheter placement 10/14/16 - Catheter tip culture MRSA, as per ID specialist Persistent MRSA, Enterococcus Bacteremia Persistent despite cath removal, septic thrombophlebitis ? 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 I discussed with infectious disease. She is cleared to have permacath and Rodriguez catheter placed. She can then be discharged on IV antibiotics. HIV: Undetectable. Currently on HAART, resume home medications. Continue outpatient f/up with ID. ESRD on HD: M/W/F. Follows w/ Dr. Rangel. - Nephrology following for dialysis - AV fistula placed in August 2016. Second stage procedure with vascular surgery. Not yet ready for use. - Vancomycin with dialysis per ID. HTN: - Controlled. Anemia, macrocytic - Possibly related to chronic disease, end-stage renal disease. - Monitor trend - Epo as needed per nephrology. Constipation Improved. DVT Prophylaxis: Heparin sq Discharge Planning Plan to discharge in a.m. once permacath and Rodriguez catheter has been placed and home IV antibiotics arranged. Discussed with case management and infectious disease Dr. Gayle. Dru Wolfe MD Oct 31, 2016 14:53
[2016-10-31] MEDS ORDERED: VANCOMYCIN INJ 1,000 MG in SODIUM CHLOR 0.9% 250 ML INJ 250 ML IV SCH (16:00)
[2016-10-31] MEDS ORDERED: ceFAZolin 2 GM PREMIX 50 ML IV SCH (16:00)
[2016-10-31] MEDS: RILPIVIRINE 25 MG TAB PO SCH (20:09)
[2016-10-31] MEDS: DOLUTEGRAVIR SODIUM 50 MG TAB PO SCH (20:09)
--- NOTE | 2016-10-31 22:14 | HHI.NPPN ---
Subjective Renal Failure: Chronic, End Stage Renal Disease Additional Remarks Patient is alert, feeling better, no SOB, remain afebrile. Review of Systems Gastrointestinal Gastrointestinal: Constipation GI Remarks loss of appetite Psych Psych: Depression Objective Data Data 10/31/16 11/01/16 19:00 07:00 Intake Total 880 ml Output Total 600 ml Balance 280 ml Intake Oral 480 ml IV Total 400 ml Output Urine Total 600 ml # Bowel Movements 1 Vital Signs Date Time Temp Pulse Resp B/P (MAP) Pulse Ox O2 Delivery O2 Flow Rate FiO2 10/31/16 20:15 Room Air 10/31/16 20:00 98.9 80 18 105/63 (77) 98 10/31/16 16:00 98.7 78 16 105/58 (74) 100 10/31/16 12:00 98.4 72 16 109/66 (80) 100 10/31/16 09:16 Room Air 10/31/16 09:16 76 10/31/16 08:00 97.6 76 20 144/82 (102) 98 10/31/16 04:00 98.5 85 18 138/75 (96) 98 10/31/16 00:00 98.9 83 18 102/62 (75) 98 -: 10/31/16 0701 10/31/16 0701 Tubes & Lines: Perma-Cath Physical Exam General Appearance: Well Developed, No Acute Distress, Comfortable, Malnourished Ears & Nose Ears & Nose Exam: Nasal Mucosa [place] Throat Throat Exam: Oral Mucosa [place] & Moist Neck Neck Exam: Neck Supple, Trachea Midline Pulmonary Resp Exam: Clear Bilaterally, Breath Sounds Equal, No Distress Cardiology CV Exam: Regular, Normal Sinus Rhythm Gastrointestinal/Abdomen GI Exam: Soft, Non-Tender, Bowel Sounds Present, Positive Bowel Movement Musculoskeletal MS Exam: Joints Intact, Normal Gait, Normal Tone, Good Strength Integumentary Skin Exam: Clear, Warm, Dry, Intact Extremeties Extremities Exam: No Edema, Pedal Pulses Palpable Neurologic Neuro Exam: Alert, Awake, Oriented, Speech Clear, Moving All Extremities Psychiatric Psych Exam: Appropriate Responses Assessment/Plan Discussed Condition With: Patient Assessment Summary: Anemia of CKD, Proteinuria, Hypertension, End Stage Renal Disease Problem List: (1) ESRD (end stage renal disease) on dialysis ICD Codes: N18.6 - End stage renal disease; Z99.2 - Dependence on renal dialysis Status: Acute Plan: continue dialysis support MWF Vascath for dialysis is in left IJ and it functions well. To have permcath exchanged tomorrow if blood cultures from 10/28 remain negative stable from renal perspective Avoid IVF. Gadolinium is contraindicated no dietary protein restriction required; on oral supplement continue Renvela , check phosphorus level intermittently Has had 1st stage left brachiobasilic AVF in left arm, will need eventual 2nd stage transposition with Dr. Barrios. HD tomorrow, remain afebrile, and last BC were negative. (2) Sepsis ICD Codes: A41.9 - Sepsis, unspecified organism Status: Acute Plan: Catheter related sepsis; PermCath was removed on admission; also has TV endocarditis; ID and CTS have evaluated will need 6 weeks of antibiotics: vancomycin to be given with HD until 11/29 ; also on ampicillin BID until 11/29; repeat Echo after treatment most recent cultures from 10/28 are negative to date ID following, managing antibiotics okay for tunneled Rodriguez catheter placement for antibiotics; D/W ID , will defer order placement to Dr. Gayle when he approves .. (3) Anemia ICD Codes: D64.9 - Anemia Status: Acute Plan: continue epogen (4) HIV (human immunodeficiency virus infection) ICD Codes: Z21 - Human immunodeficiency virus (HIV) infection Status: Chronic Plan: Continue HAART therapy. on Megace for appetite stimulation (5) Hypertension ICD Codes: I10 - Hypertension Status: Chronic Plan: BP improved continue Antihypertensive as ordered Christiano Denise MD Oct 31, 2016 22:14
[2016-11-01] VITALS (7 sets, daily range): BP systolic 103–124; BP diastolic 64–80; PULSE 67–85; RESP 16–20; TEMP 98–98.5; O2SAT 97–100
[2016-11-01] MEDS: AMPICILLIN INJ 2,000 MG in SODIUM CHLORIDE 0.9% INJ 100 ML IV SCH ×2 (05:15→17:35)
[2016-11-01] MEDS: SEVELAMER CARBONATE 800 MG TAB PO SCH ×3 (08:00→17:00)
[2016-11-01] MEDS: SODIUM CHLORIDE 0.9% FLUSH 10 ML FLUSH IV FLUSH SCH ×2 (09:00→21:00)
[2016-11-01] MEDS: LACTIC ACID (AMMONIUM LACTATE) 12% LOTION 225 GM BTL TOPICAL SCH ×2 (09:00→21:00)
--- NOTE | 2016-11-01 11:07 | HHI.FF ---
Infusion Therapy Location of Infusion Therapy: Home Health Care IV Infusion Order Patient Information Patient Weight 48.2 kg Diagnosis: (1) Endocarditis (2) Sepsis Coded Allergies: ferumoxytol (Unverified Allergy, Severe, IRON INJECTIONS, 10/22/16) PT STATES THEY HAVE NOW CHANGED BRANDS OF IRON & SHE IS ABLE TO TAKE THE NEW BRAND OF IRON *MDRO Multi-Drug Resistant Organism (Verified Adverse Reaction, Unknown, ) MRSA PCR 09/07/16 Positive [facility] - E. cloacae (peritoneal fluid) - 05/04/16 MRSA (blood) 10/12/16, (cath tip) 10/14/16 Administer Medication Ampicillin 2 grams IV q 12 hours Stop Treatment: Nov 29, 2016 Administer Medication Vancomycin 1 gram IV q 48 hours w/Hemodialysis M,W,F Stop Treatment: Nov 29, 2016 Additional Information Venous access: Implanted Port Additional Instructions [x] Peripheral flush and dressing changes per protocol [x] Implanted port and central line locator: * Implanted port: 10 ml Normal Saline followed by 5 ml Heparin 100 units/ml Heparin flush after each use and monthly to maintain. [] May leave port accessed during therapy. [] May leave peripheral site accessed for duration of therapy. [x] If patient has SOB or respiratory distress, check oxygen saturation. If less than 90% or clinical signs of respiratory distress, administer oxygen at 2 L/min. via nasal cannula and notify physician. [x] Anaphylaxis/Reaction orders: * Stop infusion. * Keep IV line open with saline flush. * Notify physician. * Monitor vital signs every 15 minutes until symptoms resolve. * Check Oxygen saturation; Oxygen at 2 L/min. via nasal cannula if less than 90% or clinical signs of respiratory distress. * Administer diphenhydramine (Benadryl) 25 mg IV STAT, (unless patient has received as pre-med). May repeat once, if necessary. * Solu-Cortef 250 mg IVP over 30-60 seconds, use 100 mg vials for each dissolution. * Epinephrine (1mg/1 ml) 0.3 mg subcutaneously or IVP now with any signs of respiratory distress. * Check with physician for new additional pre-med orders if patient is re- challenged or re-treated. [x] May remove PICC line when treatment complete, after confirming with Physician. [x] If the patient is admitted to the hospital, the ED, or transferred via [facility] , complete transfer form including medication reconciliation order sheet. Laboratory Tests Additional Information Follow up with ID Dr. Colon in 1 week. Red Gayle MD Nov 01, 2016 11:07
[2016-11-01] MEDS: LABETALOL HCL 300 MG TAB PO SCH ×3 (13:00→17:35)
[2016-11-01] MEDS: DOCUSATE SODIUM 50 MG/SENNA 8.6 MG TAB PO SCH ×2 (13:15→21:00)
[2016-11-01] MEDS: MEGESTROL ACETATE 40 MG TAB PO SCH ×2 (13:15→22:46)
[2016-11-01] MEDS: VITAMIN B CMPLX/VITC/FOLIC AC CAP PO SCH (13:15)
[2016-11-01] MEDS: ATORVASTATIN 10 MG TAB PO SCH (13:15)
[2016-11-01] MEDS: ASPIRIN EC 81 MG TABEC PO SCH (13:16)
[2016-11-01] MEDS: valACYclovir HCL 500 MG TAB PO SCH (13:16)
[2016-11-01] MEDS: LISINOPRIL 20 MG TAB PO SCH ×2 (13:16→22:45)
[2016-11-01] MEDS: POLYETHYLENE GLYCOL 17 GM PKG PO SCH (13:17)
[2016-11-01] MEDS: HEPARIN SODIUM - SQ 10,000 UNITS/ML VIAL SQ SCH ×2 (13:17→21:00)
[2016-11-01] MEDS: LACTULOSE SYRUP 20 GM/30 ML CUP PO SCH (13:17)
--- NOTE | 2016-11-01 13:29 | HHI.DS ---
Discharge Summary Admission Date Oct 12, 2016 at 19:10 Discharge Date: Nov 01, 2016 Admitting Diagnosis sepsis (1) Sepsis ICD Code: A41.9 - Sepsis, unspecified organism Status: Acute (2) HIV (human immunodeficiency virus infection) ICD Code: Z21 - Human immunodeficiency virus (HIV) infection Status: Chronic (3) ESRD (end stage renal disease) on dialysis ICD Code: N18.6 - End stage renal disease; Z99.2 - Dependence on renal dialysis Status: Acute (4) Thrombocytopenia ICD Code: D69.6 - Thrombocytopenia, unspecified Status: Acute (5) HTN (hypertension) ICD Code: I10 - Essential (primary) hypertension Status: Acute Procedures Permacath placement Brief History - From Admission This is a 41-year-old female with a PMH of HTN, ESRD on HD M/W/F and HIV (CD4 35 on 06/24/13, HIV RNA undetectable) on HAART who presented to the ER w/ complaints of generalized malaise, fever and chills x3 days. Denies cough, SOB , nausea, vomiting, diarrhea or sick contacts. +Right Chest Vas-Cath for HD, had HD on Friday w/ no complications. On arrival, BP 150/66, HR 116, O2 sat 98 % on RA, Temp 101.6. WBC 16.5. Platelets 116, previously 153 on 09/08/16, + bandemia. Creatinine 9.77, previously 6.48 on 09/08/16. Lactic Acid 1.2. CXR with no acute findings. S/p Blood Cultures, Vanc/Cefepime in ER. CBC/BMP: 10/31/16 0701 10/31/16 0701 Significant Findings Laboratory Tests Test 10/30/16 03:58 10/31/16 07:01 Red Blood Count 2.47 MIL/MM3 (4.00-5.30) 2.61 MIL/MM3 (4.00-5.30) Hemoglobin 8.6 GM/DL (11.6-15.3) 9.0 GM/DL (11.6-15.3) Hematocrit 25.9 % (35.0-46.0) 27.3 % (35.0-46.0) Mean Corpuscular Volume 105.0 FL (80.0-100.0) 104.7 FL (80.0-100.0) Mean Corpuscular Hemoglobin 34.7 PG (27.0-34.0) 34.7 PG (27.0-34.0) Red Cell Distribution Width 18.0 % (11.6-17.2) 18.1 % (11.6-17.2) Blood Urea Nitrogen 74 MG/DL (7-18) 43 MG/DL (7-18) Creatinine 10.48 MG/DL (0.50-1.00) 7.17 MG/DL (0.50-1.00) Calcium Level 8.0 MG/DL (8.5-10.1) 8.3 MG/DL (8.5-10.1) Sodium Level 134 MEQ/L (136-145) Potassium Level 5.4 MEQ/L (3.5-5.1) Chloride Level 92 MEQ/L (98-107) Anion Gap 18 MEQ/L (5-15) Estimat Glomerular Filtration Rate 5 ML/MIN (>89) 8 ML/MIN (>89) Imaging Last Impressions Upper Extremity Ultrasound 10/18/16 0000 Signed Impressions: Service Date/Time: Tuesday, October 18, 2016 16:53 - CONCLUSION: 1. No deep venous thrombosis identified. Left cephalic vein not clearly visualized. Fistula at the left between basilic vein and brachial artery. Doc Langley MD Catheter Placement X-Ray 10/14/16 1029 Signed Impressions: Service Date/Time: Friday, October 14, 2016 13:51 - CONCLUSION: Uncomplicated line placement as above. Mason Moore MD Central Venous Line 10/14/16 0000 Signed Impressions: Service Date/Time: Friday, October 14, 2016 00:00 - CONCLUSION: Uncomplicated Permcath removal. Mason Moore MD Chest X-Ray 10/12/16 1618 Signed Impressions: Service Date/Time: Wednesday, October 12, 2016 16:14 - CONCLUSION: No evidence of acute cardiopulmonary disease. Chet Pang MD PE at Discharge GENERAL: This is a well-nourished, well-developed patient, in no apparent distress. CARDIOVASCULAR: Normal rate and regular rhythm. 2/6 JAYNE murmur best heard in the tricuspid area. RESPIRATORY: Good respiratory efforts. Breath sounds equal and clear to auscultation bilaterally. GASTROINTESTINAL: Abdomen soft, non-tender, non-distended. Normal active bowel sounds MUSCULOSKELETAL: Extremities without cyanosis, or edema. NEURO: Alert & Oriented x4 to person, place, time, situation. Moves all ext x4 PSYCH: Appropriate mood and affect. Pt update on day of discharge Patient reports she is feeling okay. Awaiting to have permacath and Rodriguez catheter placement. Anxious to go home today. Has been cleared by infectious disease to be discharged on home IV antibiotics. Hospital Course 41-year-old female with a PMH of HTN, ESRD on HD M/W/F and HIV (CD4 35 on , HIV RNA undetectable) on HAART who presented to the ER w/ complaints of generalized malaise, fever and chills x3 days. The patient were found to have sepsis secondary to Catheter Associated Bacteremia with MRSA. The catheter tip culture grew MRSA. 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 Patient was followed by infectious disease. She was treated with vancomycin and ampicillin. Repeat blood cultures on 10/28/16 were negative at 4 days. She was cleared to have a permacath placed for hemodialysis and Rodriguez catheter placed for antibiotics. She is discharged with home health and IV antibiotics to continue treatment per infectious disease recommendations. HIV: Undetectable. Currently on HAART. Continue outpatient f/up with ID. ESRD on HD: M/W/F. Follows w/ Dr. Rangel. - Nephrology following for dialysis - AV fistula placed in August 2016. Second stage procedure with vascular surgery. Not yet ready for use. - Vancomycin with dialysis per ID. HTN: - Controlled. Anemia, macrocytic - Possibly related to chronic disease, end-stage renal disease. - Monitor trend - Epo as needed per nephrology. The patient can be discharged home today after permacath and Rodriguez catheters placed. She will have dialysis, then can go home. Pt Condition on Discharge: Good Discharge Disposition: Disch w/ Home Health Serv Discharge Time: > 30 minutes Discharge Instructions DIET: Follow Instructions for: Dialysis Diet Activities you can perform: Regular-No Restrictions Follow up Referrals: Infectious Disease - 1 Week Nephrology Continued Medications: Amlodipine (Amlodipine) 10 Mg Tab 10 MG PO DAILY for Blood Pressure Management, #30 TAB [address] (Aspirin Adult Low Strength) 81 Mg Tabdr 81 MG PO DAILY, TAB Atorvastatin (Lipitor) 10 Mg Tab 10 MG PO MOWEFR for Cholesterol Management, #30 TAB 0 Refills Take 1 tablet (10mg) at bedtime on Friday,Friday and Friday B-Complex W/ C & Folic Acid (Renal Vitamin) 1 Cap 1 CAP PO DAILY for Nutritional Supplement, #30 CAP 0 Refills If on dialysis, take after treatment. Cholecalciferol (Vitamin D3) 50,000 Unit Cap 31145 UNITS PO WEEKLY for Nutritional Supplement, #30 CAP 0 Refills Dolutegravir (Tivicay) 50 Mg Tab 50 MG PO DAILY for Mgmt Viral Infection, #30 TAB 0 Refills Labetalol (Labetalol) 300 Mg Tab 300 MG PO TID for Blood Pressure Management, TAB 0 Refills Lamivudine (Epivir) 150 Mg Tab 150 MG PO DAILY for Mgmt Viral Infection, #30 TAB 0 Refills Lisinopril (Lisinopril) 20 Mg Tab 20 MG PO BID, #30 TAB 0 Refills Ranitidine (Ranitidine) 150 Mg Tab 150 MG PO MOWEFR for Heartburn Management, #60 TAB 0 Refills Rilpivirine (Edurant) 25 Mg Tab 25 MG PO DAILY for Mgmt Viral Infection, #30 TAB 0 Refills Valacyclovir (Valacyclovir) 1 Gm Tab 1000 MG PO DAILY for Mgmt Viral Infection, #30 TAB 0 Refills Dru Wolfe MD Nov 01, 2016 13:29
--- NOTE | 2016-11-01 15:13 | HHI.FF ---
Face to Face Verification Diagnosis: (1) Sepsis (2) ESRD (end stage renal disease) on dialysis (3) Endocarditis (4) HIV (human immunodeficiency virus infection) Home Health Nursing Order: Medical education Signs/symptoms of disease process Nursing assessment with vital signs IV medication administration I have seen patient Alondra Wynn on 11/01/16. My clinical findings support the need for the requested home health care services because: Infection w/ risk of complications Injectable med education/admin I certify that my clinical findings support that this patient is homebound because: Need for psychosocial assistance Unable to use public transportation Dru Wolfe MD Nov 01, 2016 15:13
[2016-11-01 16:08] LABS: APTT (PATIENT) 30.8 SEC (24.3-30.1); PROTHROMBIN TIME - PATIENT 11.4 SEC (9.8-11.6)
--- NOTE | 2016-11-01 19:35 | HHI.NPPN ---
Subjective Renal Failure: Chronic, End Stage Renal Disease Additional Remarks Patient is alert, feeling better, no SOB, remain afebrile. Review of Systems Gastrointestinal Gastrointestinal: Constipation GI Remarks loss of appetite Psych Psych: Depression Objective Data Data 11/01/16 11/02/16 19:00 07:00 Intake Total 100 ml Balance 100 ml IV Total 100 ml Vital Signs Date Time Temp Pulse Resp B/P (MAP) Pulse Ox O2 Delivery O2 Flow Rate FiO2 11/01/16 12:00 98.0 73 18 122/69 (86) 100 11/01/16 09:00 78 11/01/16 08:30 Room Air 11/01/16 08:00 98.1 71 16 124/72 (89) 100 11/01/16 04:00 Room Air 11/01/16 04:00 98.3 67 20 110/80 (90) 97 11/01/16 00:00 98.4 85 16 103/64 (77) 100 11/01/16 00:00 Room Air 10/31/16 20:17 87 10/31/16 20:15 Room Air 10/31/16 20:00 98.9 80 18 105/63 (77) 98 -: 10/31/16 0701 10/31/16 0701 Microbiology 11/01/16 Aerobic Blood Culture, Received Pending 11/01/16 Anaerobic Blood Culture, Received Pending Tubes & Lines: Perma-Cath Physical Exam General Appearance: Well Developed, No Acute Distress, Comfortable, Malnourished Ears & Nose Ears & Nose Exam: Nasal Mucosa [place] Throat Throat Exam: Oral Mucosa [place] & Moist Neck Neck Exam: Neck Supple, Trachea Midline Pulmonary Resp Exam: Clear Bilaterally, Breath Sounds Equal, No Distress Cardiology CV Exam: Regular, Normal Sinus Rhythm Gastrointestinal/Abdomen GI Exam: Soft, Non-Tender, Bowel Sounds Present, Positive Bowel Movement Musculoskeletal MS Exam: Joints Intact, Normal Gait, Normal Tone, Good Strength Integumentary Skin Exam: Clear, Warm, Dry, Intact Extremeties Extremities Exam: No Edema, Pedal Pulses Palpable Neurologic Neuro Exam: Alert, Awake, Oriented, Speech Clear, Moving All Extremities Psychiatric Psych Exam: Appropriate Responses Assessment/Plan Discussed Condition With: Patient Assessment Summary: Anemia of CKD, Proteinuria, Hypertension, End Stage Renal Disease Problem List: (1) ESRD (end stage renal disease) on dialysis ICD Codes: N18.6 - End stage renal disease; Z99.2 - Dependence on renal dialysis Status: Acute Plan: continue dialysis support MWF Vascath for dialysis is in left IJ and it functions well. To have permcath exchanged tomorrow if blood cultures from 10/28 remain negative stable from renal perspective Avoid IVF. Gadolinium is contraindicated no dietary protein restriction required; on oral supplement continue Renvela , check phosphorus level intermittently Has had 1st stage left brachiobasilic AVF in left arm, will need eventual 2nd stage transposition with Dr. Barrios. HD tomorrow, remain afebrile, and last BC were negative. (2) Sepsis ICD Codes: A41.9 - Sepsis, unspecified organism Status: Acute Plan: Catheter related sepsis; PermCath was removed on admission; also has TV endocarditis; ID and CTS have evaluated will need 6 weeks of antibiotics: vancomycin to be given with HD until 11/29 ; also on ampicillin BID until 11/29; repeat Echo after treatment most recent cultures from 10/28 are negative to date ID following, managing antibiotics okay for tunneled Rodriguez catheter placement for antibiotics; D/W ID , will defer order placement to Dr. Gayle when he approves .. (3) Anemia ICD Codes: D64.9 - Anemia Status: Acute Plan: continue epogen (4) HIV (human immunodeficiency virus infection) ICD Codes: Z21 - Human immunodeficiency virus (HIV) infection Status: Chronic Plan: Continue HAART therapy. on Megace for appetite stimulation (5) Hypertension ICD Codes: I10 - Hypertension Status: Chronic Plan: BP improved continue Antihypertensive as ordered Christiano Denise MD Nov 01, 2016 19:35
[2016-11-01] MEDS: DOLUTEGRAVIR SODIUM 50 MG TAB PO SCH (22:46)
[2016-11-01] MEDS: RILPIVIRINE 25 MG TAB PO SCH (22:46)
[2016-11-02] VITALS (7 sets, daily range): BP systolic 102–148; BP diastolic 58–92; PULSE 76–86; RESP 18–20; TEMP 98.2–99.1; O2SAT 99–100
[2016-11-02] MEDS: AMPICILLIN INJ 2,000 MG in SODIUM CHLORIDE 0.9% INJ 100 ML IV SCH ×2 (06:02→16:52)
[2016-11-02] MEDS: LACTIC ACID (AMMONIUM LACTATE) 12% LOTION 225 GM BTL TOPICAL SCH ×2 (09:00→20:04)
[2016-11-02] MEDS: SODIUM CHLORIDE 0.9% FLUSH 10 ML FLUSH IV FLUSH SCH ×2 (09:00→20:03)
[2016-11-02] MEDS: LACTULOSE SYRUP 20 GM/30 ML CUP PO SCH (10:13)
[2016-11-02] MEDS: valACYclovir HCL 500 MG TAB PO SCH (10:13)
[2016-11-02] MEDS: SEVELAMER CARBONATE 800 MG TAB PO SCH ×3 (10:13→16:52)
[2016-11-02] MEDS: POLYETHYLENE GLYCOL 17 GM PKG PO SCH (10:13)
[2016-11-02] MEDS: DOCUSATE SODIUM 50 MG/SENNA 8.6 MG TAB PO SCH ×2 (10:14→20:03)
[2016-11-02] MEDS: MEGESTROL ACETATE 40 MG TAB PO SCH ×2 (10:14→20:02)
[2016-11-02] MEDS: VITAMIN B CMPLX/VITC/FOLIC AC CAP PO SCH (10:14)
[2016-11-02] MEDS: LISINOPRIL 20 MG TAB PO SCH ×2 (10:14→20:03)
[2016-11-02] MEDS: ASPIRIN EC 81 MG TABEC PO SCH (10:14)
[2016-11-02] MEDS: LABETALOL HCL 300 MG TAB PO SCH ×3 (10:14→16:53)
[2016-11-02] MEDS: HEPARIN SODIUM - SQ 10,000 UNITS/ML VIAL SQ SCH ×2 (10:15→20:03)
--- NOTE | 2016-11-02 14:38 | HHI.PR ---
Subjective Remarks IR was not able to place permacath or Rodriguez catheter due to conflicting timing with dialysis. She is scheduled for Friday. Patient has no new complaints. Objective Vitals Vital Signs Date Time Temp Pulse Resp B/P (MAP) Pulse Ox O2 Delivery O2 Flow Rate FiO2 11/02/16 08:30 Room Air 11/02/16 08:00 99.1 80 20 112/66 (81) 11/02/16 04:00 98.8 82 20 148/92 (110) 100 11/02/16 04:00 Room Air 11/02/16 00:00 98.8 82 20 117/66 (83) 100 11/02/16 00:00 Room Air 11/01/16 23:00 84 11/01/16 22:30 Room Air 11/01/16 16:00 98.5 68 18 116/68 (84) 100 I/O 11/01/16 11/01/16 11/01/16 11/02/16 11/02/16 11/02/16 07:00 15:00 23:00 07:00 15:00 23:00 Intake Total 580 ml 100 ml 240 ml Output Total 0 ml Balance 580 ml 100 ml 240 ml Intake Oral 480 ml 240 ml IV Total 100 ml 100 ml Output Urine Total 0 ml # Voids 0 # Bowel Movements 1 Result Diagram: 10/31/1670010/31/16700 Objective Remarks GENERAL: This is a well-nourished, well-developed patient, in no apparent distress. CARDIOVASCULAR: Normal rate and regular rhythm. 2/6 JAYNE murmur best heard in the tricuspid area. RESPIRATORY: Good respiratory efforts. Breath sounds equal and clear to auscultation bilaterally. GASTROINTESTINAL: Abdomen soft, non-tender, non-distended. Normal active bowel sounds MUSCULOSKELETAL: Extremities without cyanosis, or edema. NEURO: Alert & Oriented x4 to person, place, time, situation. Moves all ext x4 PSYCH: Appropriate mood and affect. Procedures Permacath placement A/P Problem List: (1) Sepsis ICD Code: A41.9 - Sepsis, unspecified organism Status: Acute (2) HIV (human immunodeficiency virus infection) ICD Code: Z21 - Human immunodeficiency virus (HIV) infection Status: Chronic (3) ESRD (end stage renal disease) on dialysis ICD Code: N18.6 - End stage renal disease; Z99.2 - Dependence on renal dialysis Status: Acute (4) Thrombocytopenia ICD Code: D69.6 - Thrombocytopenia, unspecified Status: Acute (5) HTN (hypertension) ICD Code: I10 - Essential (primary) hypertension Status: Acute Assessment and Plan 41-year-old female with a PMH of HTN, ESRD on HD M/W/F and HIV (CD4 35 on , HIV RNA undetectable) on HAART who presented to the ER w/ complaints of generalized malaise, fever and chills x3 days. The patient was found to have sepsis secondary to Catheter Associated Bacteremia with MRSA. The catheter tip culture grew MRSA. 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 Patient followed by infectious disease. On vancomycin and ampicillin. Repeat blood cultures on 10/28/16 were negative at 4 days. She was cleared to have a permacath placed for hemodialysis and Rodriguez catheter placed for antibiotics. Patient could not be discharged yesterday because IR could not place Permacath or Rodriguez. She is scheduled for Friday. She can be discharged on Friday after all arrangements are made. HIV: Undetectable. Currently on HAART, resume home medications. Continue outpatient f/up with ID. ESRD on HD: M/W/F. Follows w/ Dr. Rangel. - Nephrology following for dialysis - AV fistula placed in August 2016. Second stage procedure with vascular surgery. Not yet ready for use. - Vancomycin with dialysis per ID. HTN: - Controlled. Anemia, macrocytic - Possibly related to chronic disease, end-stage renal disease. - Monitor trend - Epo as needed per nephrology. Constipation Improved. DVT Prophylaxis: Heparin sq Discharge Planning Discharge once permacath and Rodriguez catheter has been placed and home IV antibiotics arranged. Dru Wolfe MD Nov 02, 2016 14:38
--- NOTE | 2016-11-02 16:01 | HHI.NPPN ---
Subjective Renal Failure: Chronic, End Stage Renal Disease Additional Remarks Patient is alert, feeling better, no SOB, remain afebrile. Review of Systems Gastrointestinal Gastrointestinal: Constipation GI Remarks loss of appetite Psych Psych: Depression Objective Data Data Vital Signs Date Time Temp Pulse Resp B/P (MAP) Pulse Ox O2 Delivery O2 Flow Rate FiO2 11/02/16 12:00 98.4 78 20 102/58 (73) 100 11/02/16 08:30 Room Air 11/02/16 08:00 99.1 80 20 112/66 (81) 11/02/16 04:00 98.8 82 20 148/92 (110) 100 11/02/16 04:00 Room Air 11/02/16 00:00 98.8 82 20 117/66 (83) 100 11/02/16 00:00 Room Air 11/01/16 23:00 84 11/01/16 22:30 Room Air -: 10/31/16 0701 10/31/16 0701 Tubes & Lines: Perma-Cath Physical Exam General Appearance: Well Developed, No Acute Distress, Comfortable, Malnourished Ears & Nose Ears & Nose Exam: Nasal Mucosa [place] Throat Throat Exam: Oral Mucosa [place] & Moist Neck Neck Exam: Neck Supple, Trachea Midline Pulmonary Resp Exam: Clear Bilaterally, Breath Sounds Equal, No Distress Cardiology CV Exam: Regular, Normal Sinus Rhythm Gastrointestinal/Abdomen GI Exam: Soft, Non-Tender, Bowel Sounds Present, Positive Bowel Movement Musculoskeletal MS Exam: Joints Intact, Normal Gait, Normal Tone, Good Strength Integumentary Skin Exam: Clear, Warm, Dry, Intact Extremeties Extremities Exam: No Edema, Pedal Pulses Palpable Neurologic Neuro Exam: Alert, Awake, Oriented, Speech Clear, Moving All Extremities Psychiatric Psych Exam: Appropriate Responses Assessment/Plan Discussed Condition With: Patient Assessment Summary: Anemia of CKD, Proteinuria, Hypertension, End Stage Renal Disease Problem List: (1) ESRD (end stage renal disease) on dialysis ICD Codes: N18.6 - End stage renal disease; Z99.2 - Dependence on renal dialysis Status: Acute Plan: continue dialysis support MWF Vascath for dialysis is in left IJ and it functions well. To have permcath exchanged if blood cultures from 10/28 remain negative stable from renal perspective Avoid IVF. Gadolinium is contraindicated no dietary protein restriction required; on oral supplement continue Renvela , check phosphorus level intermittently Has had 1st stage left brachiobasilic AVF in left arm, will need eventual 2nd stage transposition with Dr. Barrios. HD MWF (2) Sepsis ICD Codes: A41.9 - Sepsis, unspecified organism Status: Acute Plan: Catheter related sepsis; PermCath was removed on admission; also has TV endocarditis; ID and CTS have evaluated will need 6 weeks of antibiotics: vancomycin to be given with HD until 11/29 ; also on ampicillin BID until 11/29; repeat Echo after treatment (3) Anemia ICD Codes: D64.9 - Anemia Status: Acute Plan: continue epogen (4) HIV (human immunodeficiency virus infection) ICD Codes: Z21 - Human immunodeficiency virus (HIV) infection Status: Chronic Plan: Continue HAART therapy. on Megace for appetite stimulation (5) Hypertension ICD Codes: I10 - Hypertension Status: Chronic Plan: BP improved continue Antihypertensive as ordered Victor Manuel Castelan MD Nov 02, 2016 16:01
[2016-11-02] MEDS: DOLUTEGRAVIR SODIUM 50 MG TAB PO SCH (20:02)
[2016-11-02] MEDS: RILPIVIRINE 25 MG TAB PO SCH (20:02)
[2016-11-03] MEDS: AMPICILLIN INJ 2,000 MG in SODIUM CHLORIDE 0.9% INJ 100 ML IV SCH ×2 (05:37→17:59)
[2016-11-03 06:00] VITALS: BP 115/63; PULSE 75; RESP 18; TEMP 97.5; O2SAT 100
[2016-11-03 08:00] VITALS: BP 129/78; PULSE 78; RESP 20; TEMP 98.1; O2SAT 100
[2016-11-03] MEDS: SEVELAMER CARBONATE 800 MG TAB PO SCH ×4 (08:00→13:38)
[2016-11-03 09:00] VITALS: PULSE 72
[2016-11-03] MEDS: LACTULOSE SYRUP 20 GM/30 ML CUP PO SCH ×2 (09:00→09:54)
[2016-11-03] MEDS: LACTIC ACID (AMMONIUM LACTATE) 12% LOTION 225 GM BTL TOPICAL SCH ×2 (09:00→20:05)
[2016-11-03] MEDS: DOCUSATE SODIUM 50 MG/SENNA 8.6 MG TAB PO SCH ×3 (09:00→20:04)
[2016-11-03] MEDS: POLYETHYLENE GLYCOL 17 GM PKG PO SCH ×2 (09:00→09:54)
[2016-11-03] MEDS: SODIUM CHLORIDE 0.9% FLUSH 10 ML FLUSH IV FLUSH SCH ×2 (09:00→20:04)
[2016-11-03] MEDS: HEPARIN SODIUM - SQ 10,000 UNITS/ML VIAL SQ SCH ×3 (09:00→20:05)
[2016-11-03] MEDS: ASPIRIN EC 81 MG TABEC PO SCH (09:55)
[2016-11-03] MEDS: VITAMIN B CMPLX/VITC/FOLIC AC CAP PO SCH (09:55)
[2016-11-03] MEDS: LABETALOL HCL 300 MG TAB PO SCH ×3 (09:55→17:59)
[2016-11-03] MEDS: MEGESTROL ACETATE 40 MG TAB PO SCH ×2 (09:55→20:03)
[2016-11-03] MEDS: valACYclovir HCL 500 MG TAB PO SCH (09:55)
[2016-11-03] MEDS: LISINOPRIL 20 MG TAB PO SCH ×2 (09:56→20:04)
--- NOTE | 2016-11-03 10:05 | HHI.PR ---
Subjective Remarks Follow up for catheter associated bacteremia, ESRD on HD. The patient reports feeling well today. Denies any fevers/chills, chest pain, cough, shortness of breath. Bowel movements have been regular. She is tolerating oral intake. She understands plan for dialysis and permcath placement tomorrow, hopefully discharge after. Objective Vitals Vital Signs Date Time Temp Pulse Resp B/P (MAP) Pulse Ox O2 Delivery O2 Flow Rate FiO2 11/03/16 08:00 Room Air 11/03/16 06:00 97.5 75 18 115/63 (80) 100 11/03/16 04:00 Room Air 11/03/16 00:00 Room Air 11/02/16 20:00 98.2 84 18 108/66 (80) 100 11/02/16 20:00 Room Air 11/02/16 20:00 86 11/02/16 16:14 Room Air 11/02/16 16:00 98.6 83 20 136/84 (101) 99 11/02/16 12:00 98.4 78 20 102/58 (73) 100 I/O 11/02/16 11/02/16 11/02/16 11/03/16 11/03/16 11/03/16 07:00 15:00 23:00 07:00 15:00 23:00 Intake Total 240 ml 340 ml Balance 240 ml 340 ml Intake Oral 240 ml 240 ml IV Total 100 ml # Voids 0 0 # Bowel Movements 1 Result Diagram: 10/31/16 0701 10/31/16 0701 Imaging Last Impressions Upper Extremity Ultrasound 10/18/16 0000 Signed Impressions: Service Date/Time: Tuesday, October 18, 2016 16:53 - CONCLUSION: 1. No deep venous thrombosis identified. Left cephalic vein not clearly visualized. Fistula at the left between basilic vein and brachial artery. Doc Langley MD Catheter Placement X-Ray 10/14/16 1029 Signed Impressions: Service Date/Time: Friday, October 14, 2016 13:51 - CONCLUSION: Uncomplicated line placement as above. Mason Moore MD Central Venous Line 10/14/16 0000 Signed Impressions: Service Date/Time: Friday, October 14, 2016 00:00 - CONCLUSION: Uncomplicated Permcath removal. Mason Moore MD Chest X-Ray 10/12/16 1618 Signed Impressions: Service Date/Time: Wednesday, October 12, 2016 16:14 - CONCLUSION: No evidence of acute cardiopulmonary disease. Chet Pang MD Objective Remarks GENERAL: Well-nourished, well-developed pleasant middle aged female patient in [facility]. SKIN: Warm and dry. Diffuse dry eczematous skin throughout extremities. HEENT: Normocephalic. Atraumatic.Pupils equal and round. Mucous membranes pink and moist. CARDIOVASCULAR: Regular rate and rhythm. 2/6 systolic murmur noted. Vas cath at right upper chest. RESPIRATORY: No accessory muscle use. Clear to auscultation. Breath sounds equal bilaterally. GASTROINTESTINAL: Abdomen soft, non-tender, mildly distended. Normoactive bowel sounds x4. MUSCULOSKELETAL: No obvious deformities. Extremities without clubbing, cyanosis , or edema. NEUROLOGICAL: Awake and alert. No obvious cranial nerve deficits. Motor grossly within normal limits. Normal speech. PSYCHIATRIC: Appropriate mood and affect; insight and judgment normal. Procedures Vascath placement Medications and IVs Current Medications Medications (Trade) Dose Ordered Sig/Chinmay Route Start Time Stop Time Status Last Admin (NS Flush) 2 ml UNSCH PRN IV FLUSH 10/12/16 19:30 10/30/16 16:29 (NS Flush) 2 ml BID IV FLUSH 10/12/16 21:00 11/03/16 09:00 (Zofran Inj) 4 mg Q6H PRN IVP 10/12/16 19:30 10/12/16 23:31 (Heparin Inj) 5,000 units Q12H SQ 10/13/16 09:00 11/03/16 09:55 (Tylenol) 650 mg Q6H PRN PO 10/12/16 19:30 10/28/16 17:59 ([place] 5-325 Mg) 1 tab Q4H PRN PO 10/12/16 19:30 10/13/16 20:10 (Morphine Inj) 2 mg Q3H PRN IV 10/12/16 19:30 10/14/16 06:22 (Cass-Colace) 1 tab BID PO 10/12/16 21:00 11/02/16 10:14 (Milk Of Magnesia Liq) 30 ml Q12H PRN PO 10/12/16 19:30 10/14/16 21:08 (Senokot) 17.2 mg Q12H PRN PO 10/12/16 19:30 (Dulcolax Supp) 10 mg DAILY PRN RECTAL 10/12/16 19:30 (Lactulose Liq) 30 ml DAILY PRN PO 10/12/16 19:30 (Norvasc) 10 mg DAILY PO 10/13/16 09:00 Future hold 11/03/16 09:55 (Ecotrin Ec) 81 mg DAILY PO 10/13/16 09:00 11/03/16 09:55 (Lipitor) 10 mg MOWEFR PO 10/14/16 20:00 11/01/16 13:15 (Nephrocaps) 1 cap DAILY PO 10/13/16 09:00 11/03/16 09:55 (Trandate) 300 mg TID PO 10/13/16 09:00 Future hold 11/03/16 09:55 (Prinivil) 20 mg BID PO 10/12/16 21:00 Future hold 11/03/16 09:56 (Valtrex) 1,000 mg DAILY PO 10/13/16 09:00 11/03/16 09:55 (Heparin Inj) 8,000 units UNSCH PRN IVF 10/13/16 10:15 10/30/16 16:27 (Mannitol Inj) 12.5 gm UNSCH PRN IV 10/13/16 10:15 (Albumin 25% Inj) 25 gm UNSCH PRN IV 10/13/16 10:15 (NS Flush) 5 ml UNSCH PRN IV FLUSH 10/13/16 10:15 (Heparin Inj) UNSCH PRN .XX 10/13/16 10:15 10/25/16 08:32 (Gentamicin (Dialysis) Inj) 20 mg UNSCH PRN IV 10/13/16 10:15 10/30/16 16:27 (Zofran Inj) 4 mg UNSCH PRN IV 10/13/16 10:15 (Tylenol) 650 mg UNSCH PRN PO 10/13/16 10:15 10/18/16 16:13 (Benadryl) 25 mg UNSCH PRN PO 10/13/16 10:15 10/15/16 06:08 (Nitrostat Sl) 0.4 mg UNSCH PRN SL 10/13/16 10:15 (Catapres) 0.1 mg UNSCH PRN PO 10/13/16 10:15 (Gelfoam 12 Mm/7 Mm Top) 1 foam UNSCH PRN TOP 10/13/16 10:15 Vancomycin HCl 1000 mg/Sodium Chloride 250 ml @ 250 mls/hr WITH DIALYSIS IV 10/13/16 10:15 10/25/16 08:32 (Epivir) 150 mg HS PO 10/13/16 21:00 11/02/16 20:02 (Edurant) 25 mg HS PO 10/13/16 21:00 11/02/16 20:02 (Lac-Hydrin 12% Lotion) 1 applic BID TOPICAL 10/14/16 12:00 11/03/16 09:00 ([place] 10-325 Mg) 1 tab Q4H PRN PO 10/14/16 11:00 10/15/16 22:46 (NS Flush) UNSCH PRN IVF 10/14/16 14:15 (Heparin Inj) UNSCH PRN IV FLUSH 10/14/16 14:15 (Miralax) 17 gm DAILY PO 10/15/16 15:30 11/02/16 10:13 (Lactulose Liq) 30 ml DAILY PO 10/16/16 09:15 11/02/16 10:13 Ampicillin Sodium 2000 mg/Sodium Chloride 100 ml @ 400 mls/hr Q12H IV 10/17/16 18:00 11/03/16 05:37 (Epogen Inj) 10,000 units UNSCH PRN IV 10/21/16 09:15 10/30/16 16:27 (Renvela) 1,600 mg TIDAC PO 10/24/16 17:00 11/02/16 10:13 (Megace) 40 mg Q12HR PO 10/24/16 21:00 11/03/16 09:55 Vancomycin HCl 1000 mg/Sodium Chloride 250 ml @ 250 mls/hr [employer] IV 10/31/16 16:00 11/03/16 15:59 Cefazolin Sodium/ Dextrose 50 ml @ 100 mls/hr [employer] IV 10/31/16 16:00 11/03/16 15:59 A/P Problem List: (1) Sepsis ICD Code: A41.9 - Sepsis, unspecified organism Status: Acute (2) HIV (human immunodeficiency virus infection) ICD Code: Z21 - Human immunodeficiency virus (HIV) infection Status: Chronic (3) ESRD (end stage renal disease) on dialysis ICD Code: N18.6 - End stage renal disease; Z99.2 - Dependence on renal dialysis Status: Acute (4) Thrombocytopenia ICD Code: D69.6 - Thrombocytopenia, unspecified Status: Acute (5) HTN (hypertension) ICD Code: I10 - Essential (primary) hypertension Status: Acute Assessment and Plan 41-year-old female with a PMH of HTN, ESRD on HD M/W/F and HIV (CD4 35 on , HIV RNA undetectable) on HAART who presented to the ER w/ complaints of generalized malaise, fever and chills x3 days. The patient was found to have sepsis secondary to Catheter Associated Bacteremia with MRSA. The catheter tip culture grew MRSA. 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 Patient followed by infectious disease. On vancomycin and ampicillin. Repeat blood cultures on 10/28/16 were negative x5days. She was cleared to have a permacath placed for HD and Rodriguez catheter placed for antibiotics. Patient could not be discharged over the weekend because IR could not place Permacath or Rodriguez. She is now scheduled for Friday. She can be discharged on Friday after all arrangements are made. HIV: Undetectable. Currently on HAART, resume home medications. Continue outpatient f/up with ID. ESRD on HD: M/W/F. Follows w/ Dr. Rangel. - Nephrology following for dialysis - AV fistula placed in August 2016. Not yet ready for use. Second stage procedure with vascular surgeon Dr. Barrios, she has appt on 11/06. - Vancomycin with dialysis per ID. HTN: - Controlled. Anemia, macrocytic - Suspect related to chronic disease, end-stage renal disease. - Monitor trend - Epo as needed per nephrology. Constipation Improved. Having regular BMs DVT Prophylaxis: Heparin Discharge Planning Hopefully discharge tomorrow after dialysis and PermCath placement by IR. HHC and antibiotics already arranged per case management. Leigh Turner PA-C Nov 03, 2016 10:05 am
[2016-11-03 12:00] VITALS: BP 117/66; PULSE 78; RESP 20; TEMP 98.1; O2SAT 100
--- NOTE | 2016-11-03 14:35 | HHI.NPPN ---
Subjective Renal Failure: Chronic, End Stage Renal Disease Additional Remarks Patient is alert, feeling better, no SOB, remain afebrile. Review of Systems Gastrointestinal Gastrointestinal: Constipation GI Remarks loss of appetite Psych Psych: Depression Objective Data Data Vital Signs Date Time Temp Pulse Resp B/P (MAP) Pulse Ox O2 Delivery O2 Flow Rate FiO2 11/03/16 12:00 98.1 78 20 117/66 (83) 100 11/03/16 09:00 72 11/03/16 08:00 98.1 78 20 129/78 (95) 100 11/03/16 08:00 Room Air 11/03/16 06:00 97.5 75 18 115/63 (80) 100 11/03/16 04:00 Room Air 11/03/16 00:00 Room Air 11/02/16 20:00 98.2 84 18 108/66 (80) 100 11/02/16 20:00 Room Air 11/02/16 20:00 86 11/02/16 16:14 Room Air 11/02/16 16:00 98.6 83 20 136/84 (101) 99 -: 10/31/16 0701 10/31/16 0701 Tubes & Lines: Perma-Cath Physical Exam General Appearance: Well Developed, No Acute Distress, Comfortable, Malnourished Ears & Nose Ears & Nose Exam: Nasal Mucosa [place] Throat Throat Exam: Oral Mucosa [place] & Moist Neck Neck Exam: Neck Supple, Trachea Midline Pulmonary Resp Exam: Clear Bilaterally, Breath Sounds Equal, No Distress Cardiology CV Exam: Regular, Normal Sinus Rhythm Gastrointestinal/Abdomen GI Exam: Soft, Non-Tender, Bowel Sounds Present, Positive Bowel Movement Musculoskeletal MS Exam: Joints Intact, Normal Gait, Normal Tone, Good Strength Integumentary Skin Exam: Clear, Warm, Dry, Intact Extremeties Extremities Exam: No Edema, Pedal Pulses Palpable Neurologic Neuro Exam: Alert, Awake, Oriented, Speech Clear, Moving All Extremities Psychiatric Psych Exam: Appropriate Responses Assessment/Plan Discussed Condition With: Patient Assessment Summary: Anemia of CKD, Proteinuria, Hypertension, End Stage Renal Disease Problem List: (1) ESRD (end stage renal disease) on dialysis ICD Codes: N18.6 - End stage renal disease; Z99.2 - Dependence on renal dialysis Status: Acute Plan: continue dialysis support MWF Vascath for dialysis is in left IJ and it functions well. To have permcath exchanged if blood cultures from 10/28 remain negative stable from renal perspective Avoid IVF. Gadolinium is contraindicated no dietary protein restriction required; on oral supplement continue Renvela , check phosphorus level intermittently Has had 1st stage left brachiobasilic AVF in left arm, will need eventual 2nd stage transposition with Dr. Barrios. HD MWF Dr. Paige to follow (2) Sepsis ICD Codes: A41.9 - Sepsis, unspecified organism Status: Acute Plan: Catheter related sepsis; PermCath was removed on admission; also has TV endocarditis; ID and CTS have evaluated will need 6 weeks of antibiotics: vancomycin to be given with HD until 11/29 ; also on ampicillin BID until 11/29; repeat Echo after treatment (3) Anemia ICD Codes: D64.9 - Anemia Status: Acute Plan: continue epogen (4) HIV (human immunodeficiency virus infection) ICD Codes: Z21 - Human immunodeficiency virus (HIV) infection Status: Chronic Plan: Continue HAART therapy. on Megace for appetite stimulation (5) Hypertension ICD Codes: I10 - Hypertension Status: Chronic Plan: BP improved continue Antihypertensive as ordered Victor Manuel Castelan MD Nov 03, 2016 14:35
[2016-11-03 16:00] VITALS: BP 111/77; PULSE 75; RESP 20; TEMP 98.4; O2SAT 100
[2016-11-03 20:00] VITALS: BP 116/74; PULSE 79; PULSE 80; RESP 18; TEMP 98.1; O2SAT 100
[2016-11-03] MEDS: RILPIVIRINE 25 MG TAB PO SCH (20:03)
[2016-11-03] MEDS: DOLUTEGRAVIR SODIUM 50 MG TAB PO SCH (20:03)
[2016-11-04] VITALS: BP 119/76; PULSE 81; RESP 16; TEMP 98.2; O2SAT 100
[2016-11-04 04:00] VITALS: BP 117/52; PULSE 76; RESP 18; TEMP 98.2; O2SAT 99
[2016-11-04] MEDS: AMPICILLIN INJ 2,000 MG in SODIUM CHLORIDE 0.9% INJ 100 ML IV SCH ×2 (06:19→18:00)
[2016-11-04 08:00] VITALS: BP 120/72; PULSE 70; RESP 16; TEMP 97.8; O2SAT 100
[2016-11-04] MEDS: ASPIRIN EC 81 MG TABEC PO SCH (08:11)
[2016-11-04] MEDS: SODIUM CHLORIDE 0.9% FLUSH 10 ML FLUSH IV FLUSH SCH ×2 (08:11→20:49)
[2016-11-04] MEDS: SEVELAMER CARBONATE 800 MG TAB PO SCH ×3 (08:11→16:13)
[2016-11-04] MEDS: LACTULOSE SYRUP 20 GM/30 ML CUP PO SCH ×2 (08:11→09:00)
[2016-11-04] MEDS: LISINOPRIL 20 MG TAB PO SCH ×2 (08:12→20:49)
[2016-11-04] MEDS: MEGESTROL ACETATE 40 MG TAB PO SCH ×2 (08:12→20:48)
[2016-11-04] MEDS: POLYETHYLENE GLYCOL 17 GM PKG PO SCH ×2 (08:12→09:00)
[2016-11-04] MEDS: DOCUSATE SODIUM 50 MG/SENNA 8.6 MG TAB PO SCH ×3 (08:12→20:48)
[2016-11-04] MEDS: VITAMIN B CMPLX/VITC/FOLIC AC CAP PO SCH (08:12)
[2016-11-04] MEDS: valACYclovir HCL 500 MG TAB PO SCH (08:13)
[2016-11-04] MEDS: HEPARIN SODIUM - SQ 10,000 UNITS/ML VIAL SQ SCH ×3 (08:13→20:48)
[2016-11-04] MEDS: LACTIC ACID (AMMONIUM LACTATE) 12% LOTION 225 GM BTL TOPICAL SCH ×2 (08:13→20:54)
[2016-11-04] MEDS: LABETALOL HCL 300 MG TAB PO SCH ×3 (08:13→18:00)
--- NOTE | 2016-11-04 10:29 | HHI.NPPN ---
Subjective Renal Failure: Chronic, End Stage Renal Disease Additional Remarks No new concerns. Due today for HD and for Cervantes and PermCath placement. (Vero Ocampo) Review of Systems General General Remarks no complaints (Vero Ocampo) Psych Psych: Depression (Vero Ocampo) Objective Data Data Vital Signs Date Time Temp Pulse Resp B/P (MAP) Pulse Ox O2 Delivery O2 Flow Rate FiO2 11/04/16 08:00 97.8 70 16 120/72 (88) 100 11/04/16 04:00 Room Air 11/04/16 04:00 98.2 76 18 117/52 (73) 99 11/04/16 00:00 98.2 81 16 119/76 (90) 100 11/04/16 00:00 Room Air 11/03/16 20:00 98.1 80 18 116/74 (88) 100 11/03/16 20:00 Room Air 11/03/16 20:00 79 11/03/16 16:00 Room Air 11/03/16 16:00 98.4 75 20 111/77 (88) 100 11/03/16 12:00 98.1 78 20 117/66 (83) 100 11/03/16 12:00 Room Air (Vero Ocampo) -: 10/31/16 0701 10/31/16 0701 Tubes & Lines: Perma-Cath (Vero Ocampo) Physical Exam General Appearance: Well Developed, No Acute Distress, Comfortable, Malnourished (Vero Ocampo) Ears & Nose Ears & Nose Exam: Nasal Mucosa [place] (Vero Ocampo) Throat Throat Exam: Oral Mucosa [place] & Moist (Vero Ocampo) Neck Neck Exam: Neck Supple, Trachea Midline (Vero Ocampo) Pulmonary Resp Exam: Clear Bilaterally, Breath Sounds Equal, No Distress (Vero Ocampo) Cardiology CV Exam: Regular, Normal Sinus Rhythm (Vero Ocampo) Gastrointestinal/Abdomen GI Exam: Soft, Non-Tender, Bowel Sounds Present, Positive Bowel Movement (Vero Ocampo) Musculoskeletal MS Exam: Joints Intact, Normal Gait, Normal Tone, Good Strength (Vero Ocampo) Integumentary Skin Exam: Clear, Warm, Dry, Intact (Vero Ocampo) Extremeties Extremities Exam: No Edema, Pedal Pulses Palpable (Veor Ocampo) Neurologic Neuro Exam: Alert, Awake, Oriented, Speech Clear, Moving All Extremities (Vero Ocampo) Psychiatric Psych Exam: Appropriate Responses (Vero Ocampo) Assessment/Plan Discussed Condition With: Patient Assessment Summary: Anemia of CKD, Proteinuria, Hypertension, End Stage Renal Disease Problem List: (1) ESRD (end stage renal disease) on dialysis ICD Codes: N18.6 - End stage renal disease; Z99.2 - Dependence on renal dialysis Status: Acute Plan: continue dialysis support MWF, she is due today Vascath for dialysis is in left IJ and it functions well. To have permcath exchanged later today (around 3pm), D/W specials stable from renal perspective Avoid IVF. Gadolinium is contraindicated no dietary protein restriction required continue Yordan Has had 1st stage left brachiobasilic AVF in left arm, will need eventual 2nd stage transposition with Dr. Barrios. stable for discharge when lines have been placed (2) Sepsis ICD Codes: A41.9 - Sepsis, unspecified organism Status: Acute Plan: Catheter related sepsis; PermCath was removed on admission; also has TV endocarditis; ID and CTS have followed will need 6 weeks of antibiotics: vancomycin to be given with HD until 11/29 ; also on ampicillin BID until 11/29; repeat Echo after treatment to have tunneled cervantes placed today (3) Anemia ICD Codes: D64.9 - Anemia Status: Acute Plan: continue epogen (4) HIV (human immunodeficiency virus infection) ICD Codes: Z21 - Human immunodeficiency virus (HIV) infection Status: Chronic Plan: Continue HAART therapy. on Megace for appetite stimulation (5) Hypertension ICD Codes: I10 - Hypertension Status: Chronic Plan: BP is stable continue Antihypertensive as ordered (Vero Ocampo) Plan patient was seen and examined. Agree with above assessment and plan. Possible discharge today after placement of Cervantes, and PermCath. (Diego Paige MD) Vero Ocampo Nov 04, 2016 10:29 Diego Paige MD Nov 04, 2016 10:52
[2016-11-04 11:27] VITALS: PULSE 73
[2016-11-04] MEDS: VANCOMYCIN INJ 1,000 MG in SODIUM CHLOR 0.9% 250 ML INJ 250 ML IV SCH (12:01)
[2016-11-04] MEDS: EPOETIN ALFA 10,000 UNITS/ML VIAL IV PRN (12:02)
[2016-11-04] MEDS: HEPARIN SODIUM - IV 10,000 UNITS/10 ML VIAL PRN (12:02)
[2016-11-04] MEDS: GENTAMICIN SULFATE (DIALYSIS USE ONLY) 20 MG/2 ML VIAL IV PRN (12:02)
--- NOTE | 2016-11-04 13:08 | HHI.PR ---
Subjective Remarks Patient seen in dialysis. Reports she is feeling okay. Awaiting permacath and Rodriguez catheter placement today, then she can be discharged home. Objective Vitals Vital Signs Date Time Temp Pulse Resp B/P (MAP) Pulse Ox O2 Delivery O2 Flow Rate FiO2 11/04/16 11:27 73 11/04/16 10:53 100 Room Air 11/04/16 10:38 21 11/04/16 08:00 97.8 70 16 120/72 (88) 100 11/04/16 04:00 Room Air 11/04/16 04:00 98.2 76 18 117/52 (73) 99 11/04/16 00:00 98.2 81 16 119/76 (90) 100 11/04/16 00:00 Room Air 11/03/16 20:00 98.1 80 18 116/74 (88) 100 11/03/16 20:00 Room Air 11/03/16 20:00 79 11/03/16 16:00 Room Air 11/03/16 16:00 98.4 75 20 111/77 (88) 100 I/O 11/03/16 11/03/16 11/03/16 11/04/16 11/04/16 11/04/16 07:00 15:00 23:00 07:00 15:00 23:00 Intake Total 100 ml 820 ml 480 ml Output Total 0 ml Balance 100 ml 820 ml 480 ml Intake Oral 720 ml 480 ml IV Total 100 ml 100 ml Output Urine Total 0 ml # Voids 0 # Bowel Movements 1 1 Result Diagram: 10/31/1670010/31/16 07 Objective Remarks GENERAL: This is a well-nourished, well-developed patient, in no apparent distress. CARDIOVASCULAR: Normal rate and regular rhythm. 2/6 JAYNE murmur best heard in the tricuspid area. RESPIRATORY: Good respiratory efforts. Breath sounds equal and clear to auscultation bilaterally. GASTROINTESTINAL: Abdomen soft, non-tender, non-distended. Normal active bowel sounds MUSCULOSKELETAL: Extremities without cyanosis, or edema. NEURO: Alert & Oriented x4 to person, place, time, situation. Moves all ext x4 PSYCH: Appropriate mood and affect. Procedures Vascath placement A/P Problem List: (1) Sepsis ICD Code: A41.9 - Sepsis, unspecified organism Status: Acute (2) HIV (human immunodeficiency virus infection) ICD Code: Z21 - Human immunodeficiency virus (HIV) infection Status: Chronic (3) ESRD (end stage renal disease) on dialysis ICD Code: N18.6 - End stage renal disease; Z99.2 - Dependence on renal dialysis Status: Acute (4) Thrombocytopenia ICD Code: D69.6 - Thrombocytopenia, unspecified Status: Acute (5) HTN (hypertension) ICD Code: I10 - Essential (primary) hypertension Status: Acute Assessment and Plan 41-year-old female with a PMH of HTN, ESRD on HD M/W/F and HIV (CD4 35 on , HIV RNA undetectable) on HAART who presented to the ER w/ complaints of generalized malaise, fever and chills x3 days. The patient was found to have sepsis secondary to Catheter Associated Bacteremia with MRSA. The catheter tip culture grew MRSA. 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 Patient followed by infectious disease. On vancomycin and ampicillin. Repeat blood cultures on 10/28/16 were negative at 4 days. She was cleared to have a permacath placed for hemodialysis and Rodriguez catheter placed for antibiotics. Patient could not be discharged because IR could not place Permacath or Rodriguez. She is scheduled for today. She can be discharged on today after all arrangements are made. HIV: Undetectable. Currently on HAART, resume home medications. Continue outpatient f/up with ID. ESRD on HD: M/W/F. Follows w/ Dr. Rangel. - Nephrology following for dialysis - AV fistula placed in August 2016. Second stage procedure with vascular surgery. Not yet ready for use. - Vancomycin with dialysis per ID. HTN: - Controlled. Anemia, macrocytic - Possibly related to chronic disease, end-stage renal disease. - Monitor trend - Epo as needed per nephrology. Constipation Improved. DVT Prophylaxis: Heparin sq Discharge Planning Discharge once permacath and Rodriguez catheter has been placed and home IV antibiotics arranged. Dru Wolfe MD Nov 04, 2016 13:08
[2016-11-04 17:00] VITALS: BP 142/79; PULSE 82; RESP 20; TEMP 98.7; O2SAT 98
[2016-11-04] MEDS ORDERED: LIDOCAINE 2%/EPINEPHrine 1:100,000 20ML MDV ONE (17:19)
[2016-11-04] MEDS ORDERED: MIDAZOLAM HCL 2 MG/2 ML VIAL ONE ×2 (17:21→17:42)
[2016-11-04] MEDS ORDERED: GELATIN 12 MM/7 MM FOAM EXTERNAL ONE ×2 (18:25→18:55)
--- NOTE | 2016-11-04 18:26 | PD.RAD ---
Post Procedure Progress Note Pre Procedure Diagnosis: (1) Renal failure Post Procedure Diagnosis: (1) Renal failure Procedure Date: Nov 04, 2016 Supervising Radiologist: Donovan Guillory Proceduralist/Assist: Tamy Olson RT(R)(CV), RT Ana Rosa(R)() Anesthesia: Conscious Sedation Plan of Activity Patient to Unit: Nursing Unit Patient Condition: Fair See PACS Report for procedural detail/treatment Central Venous Access Device Procedure 1 Right Internal Jugular Hemodialysis Catheter Tunneled Placement dual lumen Procedure 2 Right Internal Jugular Tunneled Central Line Placement single lumen Donovan Guillory MD Nov 04, 2016 18:25
[2016-11-04] MEDS ORDERED: HEPARIN SODIUM - IV 2,000 UNITS/2 ML VIAL IV FLUSH PRN (18:30)
[2016-11-04] MEDS ORDERED: SODIUM CHLORIDE 0.9% FLUSH 10 ML FLUSH IVF PRN ×2 (18:30)
[2016-11-04] MEDS: DOLUTEGRAVIR SODIUM 50 MG TAB PO SCH (20:47)
[2016-11-04] MEDS: ACETAMINOPHEN/HYDROcodone 325 MG/10 MG TAB PO PRN (20:48)
[2016-11-04] MEDS: RILPIVIRINE 25 MG TAB PO SCH (20:48)
[2016-11-04] MEDS: ATORVASTATIN 10 MG TAB PO SCH (20:52)
[2016-11-04 21:36] VITALS: BP 135/75; PULSE 83; RESP 16; TEMP 98.2; O2SAT 97
[2016-11-05 00:58] VITALS: BP 134/72; PULSE 77; RESP 16; TEMP 97.7; O2SAT 100
[2016-11-05] MEDS: ACETAMINOPHEN/HYDROcodone 325 MG/10 MG TAB PO PRN ×2 (03:07→10:57)
[2016-11-05 06:05] VITALS: BP 109/65; PULSE 77; RESP 16; TEMP 97.9; O2SAT 99
[2016-11-05] MEDS: AMPICILLIN INJ 2,000 MG in SODIUM CHLORIDE 0.9% INJ 100 ML IV SCH (06:19)
[2016-11-05 08:00] VITALS: BP 117/69; PULSE 74; RESP 20; TEMP 98.1; O2SAT 100
[2016-11-05] MEDS: SEVELAMER CARBONATE 800 MG TAB PO SCH ×2 (08:52→12:00)
[2016-11-05] MEDS: valACYclovir HCL 500 MG TAB PO SCH (08:52)
[2016-11-05] MEDS: SODIUM CHLORIDE 0.9% FLUSH 10 ML FLUSH IV FLUSH SCH (08:52)
[2016-11-05] MEDS: ASPIRIN EC 81 MG TABEC PO SCH (08:52)
[2016-11-05] MEDS: LABETALOL HCL 300 MG TAB PO SCH ×2 (08:53→13:00)
[2016-11-05] MEDS: VITAMIN B CMPLX/VITC/FOLIC AC CAP PO SCH (08:53)
[2016-11-05] MEDS: LACTULOSE SYRUP 20 GM/30 ML CUP PO SCH (08:53)
[2016-11-05] MEDS: DOCUSATE SODIUM 50 MG/SENNA 8.6 MG TAB PO SCH (08:54)
[2016-11-05] MEDS: LISINOPRIL 20 MG TAB PO SCH (08:54)
[2016-11-05] MEDS: POLYETHYLENE GLYCOL 17 GM PKG PO SCH (08:54)
[2016-11-05] MEDS: HEPARIN SODIUM - SQ 10,000 UNITS/ML VIAL SQ SCH (08:54)
[2016-11-05] MEDS: LACTIC ACID (AMMONIUM LACTATE) 12% LOTION 225 GM BTL TOPICAL SCH (08:54)
[2016-11-05] MEDS: MEGESTROL ACETATE 40 MG TAB PO SCH (08:55)
[2016-11-05] MEDS ORDERED: SODIUM CHLORIDE 0.9% FLUSH 10 ML FLUSH IVF SCH (09:00)
[2016-11-05] MEDS ORDERED: THROMBIN (TOPICAL) 5,000 UNIT VIAL ONE (09:46)
--- NOTE | 2016-11-05 10:43 | RADRPT ---
EXAM DATE/TIME: 11/04/2016 18:14 [place] COMPARISON: No previous studies available for comparison. INDICATIONS : Patient with history of end stage renal disease in need of long tern IV access. MEDICAL HISTORY : HTN ESRD HIV SURGICAL HISTORY : Vas-Cath AV Fistula Bilateral Cataracts ENCOUNTER: Subsequent ACUITY: >1 year PAIN SCORE: 0/10 FLUORO TIME: 1.9 minutes IMAGE SERIES: 1 SEDATION TIME: 45 minutes ACCESS: Right internal jugular vein SEDATION: 1.) 3.5 mg midazolam (Versed) IV 2.) 175 mcg fentanyl (Sublimaze) IV Prophylactic antibiotics were administered with appropriate pre-procedure timing. Vancomycin within 2 hours of procedure, Ancef (or alternative) within 1 hour of procedure. DEVICE: 1. 6 Kinyarwanda single lumen Rodriguez catheter PROCEDURE : 1. Fluoroscopic guidance. 2. Rodriguez catheter placement 3. Conscious sedation with continuous EKG and oximetry monitoring. The risks, benefits and alternatives to the procedure were explained and verbal and written consent w as obtained. The site was prepped in sterile fashion. Full sterile technique was used, including ca p, mask, sterile gloves and gown and a large sterile sheet. Hand hygiene and 2% chlorhexidine and Be tadine was utilized per protocol for cutaneous antisepsis with appropriate dry time for site. The sk in and subcutaneous tissues were infiltrated with local anesthetic solution. With fluoroscopic guidance a dermatotomy was created in the supraclavicular region. A micropuncture set was used to access to the prescribed vein and serial dilatation was performed to accept a Rodriguez catheter. A subcutaneous tunnel was created and in antegrade fashion the catheter was pulled throug h the tunnel, cut to the appropriate length and place through the sheath. The catheter was locked wi th heparin and sutured in place. Conscious sedation was performed with the prescribed dosages and duration as above in the presence of an independent trained radiology nurse to assist in the monitoring of the patient. EKG and oximetry remained stable throughout the procedure. The patient tolerated the procedure well and there were no complications. The patient was sent to post anesthesia recovery in stable condition. CONCLUSION: Uncomplicated Rodriguez catheter placement as above. Donovan Guillory MD on November 05, 2016 at 10:41 Board Certified Radiologist. This report was verified electronically.
--- NOTE | 2016-11-05 11:45 | HHI.NPPN ---
Subjective Renal Failure: Chronic, End Stage Renal Disease Interval History Her lines were placed. She is cleared for discharge today. (Vero Ocampo) Review of Systems General General Remarks no complaints (Vero Ocampo) Psych Psych: Depression (Vero Ocampo) Objective Data Data Vital Signs Date Time Temp Pulse Resp B/P (MAP) Pulse Ox O2 Delivery O2 Flow Rate FiO2 11/05/16 08:00 98.1 74 20 117/69 (85) 100 11/05/16 06:05 97.9 77 16 109/65 (80) 99 11/05/16 00:58 97.7 77 16 134/72 (92) 100 11/04/16 21:36 98.2 83 16 135/75 (95) 97 11/04/16 21:16 Room Air 11/04/16 19:45 81 18 130/81 (97) 100 Room Air 11/04/16 19:35 82 18 147/87 (107) 100 Room Air 11/04/16 19:01 78 15 168/74 (105) 96 Room Air 11/04/16 18:53 98.6 78 15 144/75 (98) 96 Room Air 11/04/16 17:27 100 Room Air 11/04/16 17:00 98.7 82 20 142/79 (100) 98 (Vero Ocampo) Imaging Last Impressions Catheter Placement X-Ray 11/04/16 0000 Signed Impressions: Service Date/Time: Friday, November 04, 2016 18:14 - CONCLUSION: Uncomplicated Cervantes catheter placement as above. Donovan Guillory MD Upper Extremity Ultrasound 10/18/16 0000 Signed Impressions: Service Date/Time: Tuesday, October 18, 2016 16:53 - CONCLUSION: 1. No deep venous thrombosis identified. Left cephalic vein not clearly visualized. Fistula at the left between basilic vein and brachial artery. Doc Langley MD Central Venous Line 10/14/16 0000 Signed Impressions: Service Date/Time: Friday, October 14, 2016 00:00 - CONCLUSION: Uncomplicated Permcath removal. Mason Moore MD Chest X-Ray 10/12/16 1618 Signed Impressions: Service Date/Time: Saturday, October 12, 2016 16:14 - CONCLUSION: No evidence of acute cardiopulmonary disease. Chet Pang MD Tubes & Lines: Perma-Cath (Vero Ocampo B. [employer] SUPERVISOR) Physical Exam General Appearance: Well Developed, No Acute Distress, Comfortable, Malnourished (Vero Ocampo B. [employer] SUPERVISOR) Ears & Nose Ears & Nose Exam: Nasal Mucosa [place] (Hermann Ocampoon B. [employer] SUPERVISOR) Throat Throat Exam: Oral Mucosa [place] & Moist (Vero Ocampo B. [employer] SUPERVISOR) Neck Neck Exam: Neck Supple, Trachea Midline (TerrenceVero B. [employer] SUPERVISOR) Pulmonary Resp Exam: Clear Bilaterally, Breath Sounds Equal, No Distress (Vero Ocampo B. [employer] SUPERVISOR) Cardiology CV Exam: Regular, Normal Sinus Rhythm (Vero Ocampo B. [employer] SUPERVISOR) Gastrointestinal/Abdomen GI Exam: Soft, Non-Tender, Bowel Sounds Present, Positive Bowel Movement (Vero Ocampo B. [employer] SUPERVISOR) Musculoskeletal MS Exam: Joints Intact, Normal Gait, Normal Tone, Good Strength (Vero Ocampo B. [employer] SUPERVISOR) Integumentary Skin Exam: Clear, Warm, Dry, Intact (Vero Ocampo B. [employer] SUPERVISOR) Extremeties Extremities Exam: No Edema, Pedal Pulses Palpable (Vero Ocampo B. [employer] SUPERVISOR) Neurologic Neuro Exam: Alert, Awake, Oriented, Speech Clear, Moving All Extremities (Hermann Ocampoon B. [employer] SUPERVISOR) Psychiatric Psych Exam: Appropriate Responses (Vero Ocampo B. [employer] SUPERVISOR) Assessment/Plan Discussed Condition With: Patient Assessment Summary: Anemia of CKD, Proteinuria, Hypertension, End Stage Renal Disease Problem List: (1) ESRD (end stage renal disease) on dialysis ICD Codes: N18.6 - End stage renal disease; Z99.2 - Dependence on renal dialysis Status: Acute Plan: continue dialysis support MWF, 3L UF yesterday s/p permcath placement yesterday, slightl bleeding today but IR came and gave injection and reports she can be discharged later today stable from renal perspective no dietary protein restriction required continue [facility] dialysis clinic is aware of her impending discharge and ready for her treatment tomorrow (2) Sepsis ICD Codes: A41.9 - Sepsis, unspecified organism Status: Acute Plan: Catheter related sepsis; PermCath was removed on admission; also has TV endocarditis; ID and CTS have followed will need 6 weeks of antibiotics: vancomycin to be given with HD until 11/29 ; also on ampicillin BID until 11/29; repeat Echo after treatment s/p tunneled cervantes placement (3) Anemia ICD Codes: D64.9 - Anemia Status: Acute Plan: continue epogen (4) HIV (human immunodeficiency virus infection) ICD Codes: Z21 - Human immunodeficiency virus (HIV) infection Status: Chronic Plan: Continue HAART therapy. on Megace for appetite stimulation (5) Hypertension ICD Codes: I10 - Hypertension Status: Chronic Plan: BP is stable continue Antihypertensive as ordered Plan cleared for discharge (Vero Ocampo) Plan patient was seen and examined. Agree with above assessment and plan. Discharge was held up due to bleeding, but the bleeding has subsided. Cleared for discharge today. (Diego Paige MD) Vero Oacmpo Nov 05, 2016 11:45 Diego Paige MD Nov 05, 2016 13:19
[2016-11-05 12:00] VITALS: BP 100/59; PULSE 73; RESP 20; TEMP 98.7; O2SAT 100
--- NOTE | 2016-11-05 12:04 | HHI.PR ---
Subjective Remarks Discharge health yesterday because the patient had some bleeding at the site where the permacath was removed. This has been revised by IR this morning and bleeding stopped. Objective Vitals Vital Signs Date Time Temp Pulse Resp B/P (MAP) Pulse Ox O2 Delivery O2 Flow Rate FiO2 11/05/16 08:00 98.1 74 20 117/69 (85) 100 11/05/16 06:05 97.9 77 16 109/65 (80) 99 11/05/16 00:58 97.7 77 16 134/72 (92) 100 11/04/16 21:36 98.2 83 16 135/75 (95) 97 11/04/16 21:16 Room Air 11/04/16 19:45 81 18 130/81 (97) 100 Room Air 11/04/16 19:35 82 18 147/87 (107) 100 Room Air 11/04/16 19:01 78 15 168/74 (105) 96 Room Air 11/04/16 18:53 98.6 78 15 144/75 (98) 96 Room Air 11/04/16 17:27 100 Room Air 11/04/16 17:00 98.7 82 20 142/79 (100) 98 I/O 11/04/16 11/04/16 11/04/16 11/05/16 11/05/16 11/05/16 07:00 15:00 23:00 07:00 15:00 23:00 Intake Total 480 ml 580 ml Output Total 0 ml 3000 ml Balance 480 ml -3000 ml 580 ml Intake Oral 480 ml 480 ml IV Total 100 ml Output Urine Total 0 ml Hemodialysis 3000 ml # Voids 1 # Bowel Movements 1 Objective Remarks GENERAL: This is a well-nourished, well-developed patient, in no apparent distress. SKIN: Right upper chest dressing appear intact. CARDIOVASCULAR: Normal rate and regular rhythm. 2/6 JAYNE murmur best heard in the tricuspid area. RESPIRATORY: Good respiratory efforts. Breath sounds equal and clear to auscultation bilaterally. GASTROINTESTINAL: Abdomen soft, non-tender, non-distended. Normal active bowel sounds MUSCULOSKELETAL: Extremities without cyanosis, or edema. NEURO: Alert & Oriented x4 to person, place, time, situation. Moves all ext x4 PSYCH: Appropriate mood and affect. Procedures Vascath placement A/P Problem List: (1) Sepsis ICD Code: A41.9 - Sepsis, unspecified organism Status: Acute (2) HIV (human immunodeficiency virus infection) ICD Code: Z21 - Human immunodeficiency virus (HIV) infection Status: Chronic (3) ESRD (end stage renal disease) on dialysis ICD Code: N18.6 - End stage renal disease; Z99.2 - Dependence on renal dialysis Status: Acute (4) Thrombocytopenia ICD Code: D69.6 - Thrombocytopenia, unspecified Status: Acute (5) HTN (hypertension) ICD Code: I10 - Essential (primary) hypertension Status: Acute Assessment and Plan 41-year-old female with a PMH of HTN, ESRD on HD M/W/F and HIV (CD4 35 on , HIV RNA undetectable) on HAART who presented to the ER w/ complaints of generalized malaise, fever and chills x3 days. The patient was found to have sepsis secondary to Catheter Associated Bacteremia with MRSA. The catheter tip culture grew MRSA. 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 Patient followed by infectious disease. On vancomycin and ampicillin. Repeat blood cultures on 10/28/16 were negative at 4 days. She was cleared to have a permacath placed for hemodialysis and Rodriguez catheter placed for antibiotics. Patient could not be discharged because IR could not place Permacath or Rodriguez. She is status post placement of Permacath and Rodriguez on 11/04/16. She can be discharged today after all arrangements are made. Per IR if no further bleeding from the procedure site. She can be discharged in a couple of hours. HIV: Undetectable. Currently on HAART, resume home medications. Continue outpatient f/up with ID. ESRD on HD: M/W/F. Follows w/ Dr. Rangel. - Nephrology following for dialysis - AV fistula placed in August 2016. Second stage procedure with vascular surgery. Not yet ready for use. - Vancomycin with dialysis per ID. HTN: - Controlled. Anemia, macrocytic : Stable - Possibly related to chronic disease, end-stage renal disease. - Epo as needed per nephrology. Constipation Improved. Discharge Planning Discharge today Dru Wolfe MD Nov 05, 2016 12:04
[2016-11-05 13:47] VITALS: RESP 18
--- NOTE | 2016-11-12 16:00 | RADRPT ---
EXAM DATE/TIME: 11/04/2016 18:14 [facility] COMPARISON: No previous studies available for comparison. INDICATIONS : Patient with history of end stage renal disease in need of permcath for dialysis. MEDICAL HISTORY : HTN ESRD HIV SURGICAL HISTORY : Vas-Cath AV Fistula Bilateral Cataracts ENCOUNTER: Subsequent ACUITY: >1 year PAIN SCORE: 0/10 FLUORO TIME: 1.9 minutes IMAGE SERIES: 1 SEDATION TIME: 45 minutes ACCESS: Right internal jugular vein SEDATION: 1.) 3.5 mg midazolam (Versed) IV 2.) 175 mcg fentanyl (Sublimaze) IV Prophylactic antibiotics were administered with appropriate pre-procedure timing. Vancomycin within 2 hours of procedure, Ancef (or alternative) within 1 hour of procedure. DEVICE: 1. 15 [place] dual lumen 19 cm Morse II Plus catheter PROCEDURE : 1. Dialysis catheter placement. 2. Conscious sedation with continuous EKG and oximetry monitoring. The risks, benefits and alternatives to the procedure were explained and verbal and written consent w as obtained. The site was prepped in sterile fashion. Full sterile technique was used, including ca p, mask, sterile gloves and gown and a large sterile sheet. Hand hygiene and 2% chlorhexidine and/or betadine/alcohol prep was utilized per protocol for cutaneous antisepsis. The skin and subcutaneous tissues were infiltrated with local anesthetic solution. With fluoroscopic guidance a dermatotomy was created using the existing venous access. A subcutaneou s tunnel was created in a retrograde fashion the catheter was pulled through the tunnel. The cathete r was flushed and assembled and locked with heparin. The catheter was sutured in place. Conscious sedation was performed with the prescribed dosages and duration as above in the presence of an independent trained radiology nurse to assist in the monitoring of the patient. EKG and oximetry remained stable throughout the procedure. The patient tolerated the procedure well and there were n o complications. The patient was sent to post anesthesia recovery in stable condition. CONCLUSION: Uncomplicated Dialysis catheter placement as above. Donovan Guillory MD on November 12, 2016 at 15:58 Board Certified Radiologist. This report was verified electronically.
== END 2016-11-05 15:16 | disposition home health service (06) | DRG 314 ==
LOC: NEPE 15:57 → NEDA 19:10 → N04A 21:05
PROVIDERS: ADMIT Family Medicine; ATTEND Family Medicine
PROC: 5A1D60Z (ICD-10-PCS; principal; 2016-10-13)
PROC: 05HM33Z Insertion of Infusion Device into Right Internal Jugular Vein, Percutaneous Approach (ICD-10-PCS; 2016-10-14)
PROC: 02PYX3Z Removal of Infusion Device from Great Vessel, External Approach (ICD-10-PCS; 2016-10-14)
PROC: B246ZZ4 Ultrasonography of Right and Left Heart, Transesophageal (ICD-10-PCS; 2016-10-24)
PROC: 05HM33Z Insertion of Infusion Device into Right Internal Jugular Vein, Percutaneous Approach (ICD-10-PCS; 2016-11-04)
DX: T80.211A Bloodstream infection due to central venous catheter, initial encounter (principal); A41.02 Sepsis due to Methicillin resistant Staphylococcus aureus; A41.81 Sepsis due to Enterococcus; I33.0 Acute and subacute infective endocarditis; N18.6 End stage renal disease; R64 Cachexia; B20 Human immunodeficiency virus [HIV] disease; D69.6 Thrombocytopenia, unspecified; I12.0 Hypertensive chronic kidney disease with stage 5 chronic kidney disease or end stage renal disease; I97.620 Postprocedural hemorrhage of a circulatory system organ or structure following other procedure; Z99.2 Dependence on renal dialysis; Y84.8 Other medical procedures as the cause of abnormal reaction of the patient, or of later complication, without mention of misadventure at the time of the procedure; I07.9 Rheumatic tricuspid valve disease, unspecified; D53.9 Nutritional anemia, unspecified; D63.1 Anemia in chronic kidney disease; K59.00 Constipation, unspecified; R63.0 Anorexia; Y71.1 Therapeutic (nonsurgical) and rehabilitative cardiovascular devices associated with adverse incidents; Y92.239 Unspecified place in hospital as the place of occurrence of the external cause
CPT/HCPCS: 36556; 36558; 71010; 76937; 77001; 80048; 80053; 80069; 80202; 83605; 83735; 84100; 84484; 85007; 85025; 85027; 85610; 85730; 86403; 87040; 87071; 87077; 87186; 87205; 87804; 90935; 93306; 93312; 93320; 93325; 93970; 94150; 96365; 96374; 96375; 99152; 99153; 99285; C1750; C1751; C1752; C1769; J0290; J0692; J1580; J1642; J1644; J2250; J2270; J2405; J3010; J3370; J7030; J7050; Q4081

== ENCOUNTER 2016-11-14 12:56 | Day surgery (SDC) | payer MEDICARE, MEDICAID ==
[~2016-11-14 12:56] MED LIST changes: +ASPI1TAB91 PO; +CHOL1CAP34 PO; -FAMO1TAB30 PO; -HYDR-3516 PO; +RANI150T PO; +RENACAP2 PO; -RENATAB5 PO; -TUMS1000 CHEW; +VALA1TAB PO
[2016-11-14 13:19] VITALS: BP 145/97; PULSE 81; RESP 20; TEMP 98.9; O2SAT 98
--- NOTE | 2016-12-02 08:20 | RADRPT ---
EXAM DATE/TIME: 11/14/2016 00:00 [facility] COMPARISON : No previous studies available for comparison. INDICATIONS : Permcath exposed on right lateral neck requiring sutures. OBJECTIVE: Temperature: 98.9 Heart Rate: 81 Blood Pressure: 145/97 Respiratory: 20 Oximetry: 98 ASSESSMENT: The patient returned for aeration of the previously placed perm catheter. There was skin breakdown at the level of the venotomy and this was closed with 2-0 silk. Sterile dressing was applied. PLAN: The patient shape is to be discharged to home TIME SPENT: 15 minutes 8 Donovan Guillory MD on December 02, 2016 at 8:16 Board Certified Radiologist. This report was verified electronically.
== END 2016-11-14 15:00 | disposition home or self-care (01) ==
LOC: HROP 12:56 → HRIP 12:59 → HROP 15:00
PROVIDERS: ATTEND Internal Medicine Nephrology
DX: Z48.00 Encounter for change or removal of nonsurgical wound dressing (principal)
CPT/HCPCS: 99213; G0463

== ENCOUNTER 2016-11-26 08:06 | Day surgery (SDC) | payer MEDICARE, MEDICAID ==
[2016-11-26 08:22] VITALS: BP 133/84; PULSE 79; RESP 20; TEMP 98.5; O2SAT 100
[2016-11-26] MEDS ORDERED: SODIUM CHLOR 0.9% 1000 ML INJ 1,000 ML IV SCH (09:15)
--- NOTE | 2016-11-26 09:56 | RADRPT ---
EXAM DATE/TIME: 11/26/2016 00:00 [facility] COMPARISON : INDICATIONS : PATIENT HERE FOR EVALUATION OF SUTURES. OBJECTIVE: Temperature: 98.5 Heart Rate: 79 Blood Pressure: 133/84 Respiratory: 16 Oximetry: 100 PNEUMONIA VACCINE: YES HISTORY OF PRESENT ILLNESS: The patient underwent placement of a Rodriguez catheter and permacath 11/04/16. The patient presents tod ay secondary to open wound in the right upper neck along the tract of the dialysis catheter. PAST MEDICAL HISTORY : 1. Renal failure, chronic. PHYSICAL EXAMINATION: The right neck was evaluated. The scan has pulled apart from at the site of the insertion of the perm acath. The catheter itself was not visible. There is some subcutaneous fat. The patient denies fever, swelling, shaking chills or drainage from the site. ASSESSMENT: The insertion site above the jugular vein and the right neck has opened. The catheter itself is not v isualized. It may be possible to say the catheter however this is unlikely. The site was cleaned. Danny e Polysporin ointment was applied. A new bandage was placed PLAN: We will see the patient back in 4 days to assess for healing. If this is not begun to heal the cathet er will be removed and reinserted in a different location. TIME SPENT: 15 minutes. Sukumar Mejia MD on November 26, 2016 at 9:50 Board Certified Radiologist. This report was verified electronically.
== END 2016-11-26 08:45 | disposition home or self-care (01) ==
LOC: HROP 08:06 → HRIP 08:09 → HROP 08:45
PROVIDERS: ATTEND Internal Medicine Nephrology
DX: T81.31XA Disruption of external operation (surgical) wound, not elsewhere classified, initial encounter (principal); Y83.8 Other surgical procedures as the cause of abnormal reaction of the patient, or of later complication, without mention of misadventure at the time of the procedure; N18.6 End stage renal disease; Z99.2 Dependence on renal dialysis
CPT/HCPCS: 99213; G0463

== ENCOUNTER 2016-11-28 22:51 | Emergency (ER) | payer MEDICARE, MEDICAID ==
[~2016-11-28] VITALS: Ht 160 cm; Wt 55.0 kg
[2016-11-28 22:55] VITALS: BP 168/80; PULSE 85; RESP 18; TEMP 98.5; O2SAT 100
--- NOTE | 2016-11-28 23:17 | PD ---
HPI Chief Complaint: Wound/Suture/Staple Re-Check Time Seen by Provider: 23:14 Travel History International Travel<30 days: No Contact w/Intl Traveler<30days: No Traveled to known affect area: No History of Present Illness HPI 41 year-old female history of HIV, CD4 count undetectable, end-stage renal disease, presents to emergency department for evaluation of her catheter site. Patient has a right anterior chest permacath as well as Rodriguez catheter, placed November 04, 2016. She followed up with interventional radiology on the of this month for concern that the wound had dehisced. At that time the skin had opened however the catheter was not visualized. She has scheduled follow up again tomorrow.. She is concerned that one of the sites may be bleeding. She noticed some blood on the dressing. Denies any pain. No fever or chills. No trauma to the site. No other symptoms to report. History Past Medical Histgory Hx Cancer: No Hx Chemotherapy: No Hx Radiation Therapy: No Social History Alcohol Use: No Tobacco Use: No Allergies-Medications (Allergen,Severity, Reaction): Coded Allergies: ferumoxytol (Unverified Allergy, Severe, IRON INJECTIONS, 11/28/16) PT STATES THEY HAVE NOW CHANGED BRANDS OF IRON & SHE IS ABLE TO TAKE THE NEW BRAND OF IRON *MDRO Multi-Drug Resistant Organism (Verified Adverse Reaction, Unknown, ) MRSA PCR 09/07/16 Positive [facility] - E. cloacae (peritoneal fluid) - 05/04/16 MRSA (blood) 10/12/16, (cath tip) 10/14/16 Reported Meds & Prescriptions Reported Meds & Active Scripts Active Reported Renal Vitamin (B-Complex W/ C & Folic Acid) 1 Cap 1 Cap PO DAILY If on dialysis, take after treatment. Vitamin D3 (Cholecalciferol) 50,000 Unit Cap 50,000 Units PO WEEKLY Valacyclovir (Valacyclovir HCl) 1 Gm Tab 1,000 Mg PO DAILY Ranitidine (Ranitidine HCl) 150 Mg Tab 150 Mg PO MOWEFR Aspirin Adult Low Strength (Aspirin) 81 Mg Tabdr 81 Mg PO DAILY Lisinopril 20 Mg Tab 20 Mg PO BID Amlodipine (Amlodipine Besylate) 10 Mg Tab 10 Mg PO DAILY Labetalol (Labetalol HCl) 300 Mg Tab 300 Mg PO TID Lipitor (Atorvastatin Calcium) 10 Mg Tab 10 Mg PO MOWEFR Take 1 tablet (10mg) at bedtime on Friday,Friday and Friday Tivicay (Dolutegravir Sodium) 50 Mg Tab 50 Mg PO DAILY Epivir (Lamivudine) 150 Mg Tab 150 Mg PO DAILY Edurant (Rilpivirine) 25 Mg Tab 25 Mg PO DAILY Review of Systems Except as stated in HPI: all other systems reviewed are Neg Physical Exam Narrative GENERAL: Thin female patient, ambulatory no acute distress. SKIN: Focused skin assessment warm/dry. On the right anterior neck there are [address] One is completely dry and intact. There is another dressing or on the anterior lateral aspect of the neck that has a dried sanguinous drainage. I have removed this dressing and revealed a wound that appears to be healing. There is no active bleeding. No drainage from the site. There is no erythema. HEAD: Normocephalic. EYES: No scleral icterus. No injection or drainage. NECK: Supple, trachea midline. No JVD or lymphadenopathy. CARDIOVASCULAR: Regular rate and rhythm RESPIRATORY: Breath sounds equal bilaterally. No accessory muscle use. Data Data Last Documented VS Vital Signs Date Time Temp Pulse Resp B/P (MAP) Pulse Ox O2 Delivery O2 Flow Rate FiO2 11/28/16 22:55 98.5 85 18 168/80 (109) 100 Room Air [facility] Medical Screen Exam Complete: Yes Emergency Medical Condition: No Differential Diagnosis healing surgical site for catheter Narrative Course 41-year-old female presents to emergency department for reevaluation of a catheter site on her right anterior lateral neck. Upon assessment, the area appears without any signs or symptoms of infection. He does appear to be healing. Is not actively bleeding. A new dressing is applied. Patient has appointment for follow-up with interventional radiology tomorrow. I do not feel there is any emergent need for further intervention at this time. She is instructed to keep her appointment as already scheduled. A medical screening exam was performed: At the time of evaluation the presenting medical condition was determined not to be of an emergent nature. The patient was given the option of receiving additional care, but declined. Patient was given options for additional community resources from which to obtain care. The Patient Has Been advised to seek medical attention for their presenting complaint. The patient has been advised to return to the ER at any time if an emergent condition develops. Primary Impression: Encounter for medical screening examination Condition: Stable Angie Dsouza Nov 28, 2016 23:17
== END 2016-11-28 23:20 | disposition left against medical advice (07) ==
LOC: NEPK 22:51
DX: Z51.89 Encounter for other specified aftercare (principal); N18.6 End stage renal disease; Z21 Asymptomatic human immunodeficiency virus [HIV] infection status
CPT/HCPCS: 99281

== ENCOUNTER → 2016-12-03 | Outpatient (CLI) | payer MEDICARE, MEDICAID ==
[2016-12-03 15:32] LABS: AUTOMATED NEUTROPHIL # 3.1 TH/MM3 (1.8-7.7); BASOPHIL # 0.1 TH/MM3 (0-0.2); BASOPHIL % 1.1 % (0.0-2.0); EOSINOPHIL # 1.6 TH/MM3 (0-0.4); EOSINOPHIL % 26.1 % (0.0-4.0); HEMATOCRIT 29.5 % (35.0-46.0); HEMO FLAGS DIFF FINAL; LYMPHOCYTE # 0.9 TH/MM3 (1.0-4.8); MEAN CELL VOLUME 109.1 FL (80.0-100.0); MONO % 8.5 % (0.0-8.0); NEUT % 50.3 % (16.0-70.0); PLATELET COUNT 226 TH/MM3 (150-450); RED CELL DISTRIBUTION WIDTH 15.7 % (11.6-17.2); WHITE BLOOD COUNT 6.1 TH/MM3 (4.0-11.0)
[2016-12-03 15:53] LABS: ALT (GPT) 27 U/L (10-53); ANION GAP 9 MEQ/L (5-15); AST (GOT) 30 U/L (15-37); BICARBONATE 28.9 MEQ/L (21.0-32.0); BLOOD UREA NITROGEN 40 MG/DL (7-18); CHLORIDE 102 MEQ/L (98-107); GLOMERULAR FILTRATION RATE 7 ML/MIN (>89); GLUCOSE,FASTING 78 MG/DL (74-99); POTASSIUM 3.8 MEQ/L (3.5-5.1); SODIUM (NA) 140 MEQ/L (136-145)
[2016-12-03 15:55] LABS: ALKALINE PHOSPHATASE 150 U/L (45-117); TOTAL BILIRUBIN ADULT 0.7 MG/DL (0.2-1.0)
[2016-12-03 16:28] LABS: WESTERGREN SEDIMENTATION RATE GREATER THAN 140 mm/hr (0-20)
[2016-12-06 07:53] LABS: CD4/CD8 RATIO 1.4 (0.86-5.00)
[2016-12-06 15:52] LABS: HIV RNA COPIES LESS THAN 20.0 (<20); HIV RNA LOG COPIES LESS THAN 1.30 (<1.30)
== END ==
LOC: CLAB 14:32
PROVIDERS: ATTEND Specialist
DX: B20 Human immunodeficiency virus [HIV] disease (principal); I12.0 Hypertensive chronic kidney disease with stage 5 chronic kidney disease or end stage renal disease; N18.6 End stage renal disease; D63.1 Anemia in chronic kidney disease; R94.5 Abnormal results of liver function studies; R79.89 Other specified abnormal findings of blood chemistry; E55.9 Vitamin D deficiency, unspecified; R73.09 Other abnormal glucose; E78.2 Mixed hyperlipidemia; R63.4 Abnormal weight loss; I33.0 Acute and subacute infective endocarditis; Z02.83 Encounter for blood-alcohol and blood-drug test; Z79.899 Other long term (current) drug therapy
CPT/HCPCS: 36415; 80053; 85025; 85652; 86140; 86355; 86357; 86359; 86360; 87040; 87536

== ENCOUNTER 2016-12-17 13:02 | Day surgery (SDC) | payer MEDICARE, MEDICAID ==
[2016-12-17 13:26] VITALS: BP 128/84; PULSE 68; RESP 20; TEMP 98.5; O2SAT 96
[2016-12-17] MEDS ORDERED: THROMBIN (TOPICAL) 5,000 UNIT VIAL ONE (14:13)
[2016-12-17 14:30] VITALS: BP 120/74; PULSE 70; RESP 20; TEMP 98.7; O2SAT 99
--- NOTE | 2016-12-17 14:42 | RADRPT ---
EXAM DATE/TIME: 12/17/2016 00:00 [facility] COMPARISON: CENTRAL VENOUS CATHETER REMOVAL, TUNNELED RIGHT, October 14, 2016, 0:00. INDICATIONS : Patient presents with endstage renal disease in need of dialysis catheter removal for culture. MEDICAL HISTORY : Hx HIV Eczema CVA HTN GERD Hx GI bleed Hernia Asthma SURGICAL HISTORY : C section PD cath Hysterectomy Cataract sx Rodriguez cath AV fistula ENCOUNTER: Subsequent ACUITY: > 1 year PAIN SCORE: 0/10 LOCATION: N/A IMAGE SERIES: 0 MEDICATION(S): 1.) 5,000 units Thrombin IV TECH NOTE: Dailysis catheter removed and culture sent to lab without fluroscopy usage.ROXANNE ALVARADO MR#:[id number] Exam Dt/Desc: December 17, 2016CENTRAL VENOUS CATHETER REMOVAL, TUNNELED RIGHT PROCEDURE : 1. PermaCath removal. The risks, benefits and alternatives to the procedure were explained and verbal and written consent w as obtained. The site was prepped in sterile fashion. Full sterile technique was used, including ca p, mask, sterile gloves and gown and a large sterile sheet. Hand hygiene and 2% chlorhexidine and/or betadine/alcohol prep was utilized per protocol for cutaneous antisepsis. The skin and subcutaneous tissues were infiltrated with local anesthetic solution. The tract was anesthetized with 1% Lidocaine using. The Rodriguez catheter was dissected from the subc utaneous tissues and easily removed in one piece. Manual pressure was applied to the venotomy site u ntil hemostasis was obtained. Sterile dressing was applied. Thrombin was also applied to the skin adjacent to the PermCath The patient tolerated the procedure well and there were no complications. CONCLUSION: Uncomplicated Rodriguez catheter removal. Donovan Guillory MD on December 17, 2016 at 14:39 Board Certified Radiologist. This report was verified electronically.
--- NOTE | 2016-12-17 14:50 | PD.RAD ---
Post Procedure Progress Note Pre Procedure Diagnosis: (1) ESRD (end stage renal disease) on dialysis Post Procedure Diagnosis: (1) ESRD (end stage renal disease) on dialysis Procedure Date: Dec 17, 2016 Supervising Radiologist: Donovan Guillory Proceduralist/Assist: RT Joana(R)() Anesthesia: Local Plan of Activity Patient to Unit: ROPU Patient Condition: Good See PACS Report for procedural detail/treatment Central Venous Access Device Procedure 1 Right Internal Jugular Tunneled Central Line Removal single lumen Donovan Guillory MD Dec 17, 2016 14:50
== END 2016-12-17 15:30 | disposition home or self-care (01) ==
LOC: HROP 13:02 → HRIP 13:03 → HROP 15:30
PROVIDERS: ATTEND Internal Medicine Nephrology
DX: I12.0 Hypertensive chronic kidney disease with stage 5 chronic kidney disease or end stage renal disease (principal); N18.6 End stage renal disease; J45.909 Unspecified asthma, uncomplicated; K21.9 Gastro-esophageal reflux disease without esophagitis; E05.90 Thyrotoxicosis, unspecified without thyrotoxic crisis or storm; B20 Human immunodeficiency virus [HIV] disease; L30.9 Dermatitis, unspecified; Z86.73 Personal history of transient ischemic attack (TIA), and cerebral infarction without residual deficits; R79.89 Other specified abnormal findings of blood chemistry; E78.2 Mixed hyperlipidemia; D64.9 Anemia, unspecified; I33.0 Acute and subacute infective endocarditis; T82.848A Pain due to vascular prosthetic devices, implants and grafts, initial encounter
CPT/HCPCS: 36415; 36589; 85652; 86140; 86480; 87040; 87071; 87081

== ENCOUNTER → 2016-12-17 | Outpatient (CLI) | payer MEDICARE, MEDICAID ==
[2016-12-19 16:13] LABS: MITOGEN MINUS NIL RESULT >10.00 IU/mL; NIL RESULT 0.09 IU/mL; QUANTIFERON TB GOLD RESULT Negative (Negative)
== END ==
LOC: CLAB 12:10
PROVIDERS: ATTEND Specialist
DX: B20 Human immunodeficiency virus [HIV] disease (principal); N18.6 End stage renal disease; I10 Essential (primary) hypertension; R79.89 Other specified abnormal findings of blood chemistry; E78.2 Mixed hyperlipidemia; D64.9 Anemia, unspecified; I33.0 Acute and subacute infective endocarditis; T82.848A Pain due to vascular prosthetic devices, implants and grafts, initial encounter
CPT/HCPCS: 36415; 85652; 86140; 86480; 87040; 87081

== ENCOUNTER → 2017-02-11 | Outpatient (CLI) | payer MEDICARE, MEDICAID ==
[~2017-02-11] MED LIST changes: -ASPI1TAB91 PO; +ASPI81TA16 PO
== END ==
LOC: CLAB 12:04
PROVIDERS: ATTEND Specialist
DX: B20 Human immunodeficiency virus [HIV] disease (principal); I12.0 Hypertensive chronic kidney disease with stage 5 chronic kidney disease or end stage renal disease; N18.6 End stage renal disease; R79.89 Other specified abnormal findings of blood chemistry; B95.62 Methicillin resistant Staphylococcus aureus infection as the cause of diseases classified elsewhere; F39 Unspecified mood [affective] disorder; I39 Endocarditis and heart valve disorders in diseases classified elsewhere; Z79.899 Other long term (current) drug therapy; Z79.891 Long term (current) use of opiate analgesic
CPT/HCPCS: 36415; 86140

== ENCOUNTER 2017-05-08 13:12 | Day surgery (SDC) | payer MEDICARE, MEDICAID ==
[2017-05-08 13:43] VITALS: BP 134/91; PULSE 72; RESP 16; O2SAT 100
[2017-05-08] MEDS ORDERED: LIDOCAINE 1%/EPINEPHrine 1:100,000 SOLN 30 ML VIAL ONE (14:03)
--- NOTE | 2017-05-08 16:02 | RADRPT ---
EXAM DATE/TIME: 05/08/2017 13:20 [facility] COMPARISON: No previous studies available for comparison. INDICATIONS : Dialysis patient now has a working fistula. No longer needs permcath. MEDICAL HISTORY : 1. HTN 2. renal failure 3. HIV 4. cad 5. MRSA 6. GERD 7. GI bleed SURGICAL HISTORY : 1. Perm cath 2. cataract 3. hysterectomy 4. PD cath ENCOUNTER: Initial ACUITY: > 1 year PAIN SCORE: 0/10 IMAGE SERIES: 0 ACCESS: Right PROCEDURE : 1. PermaCath removal. The risks, benefits and alternatives to the procedure were explained and verbal and written consent w as obtained. The site was prepped in sterile fashion. Full sterile technique was used, including ca p, mask, sterile gloves and gown and a large sterile sheet. Hand hygiene and 2% chlorhexidine and/or betadine/alcohol prep was utilized per protocol for cutaneous antisepsis. The skin and subcutaneous tissues were infiltrated with local anesthetic solution. The tract was anesthetized with 1% Lidocaine using. Blunt dissection was utilized to free the retent ion cuff from the subcutaneous tissues. The cuff was found to be located quite deep within the subcut aneous tract. For this reason, a small dermatotomy was made in the supraclavicular region directly ov er the cuff location and blunt dissection was further utilized at this site. The cuff was freed. The Permcath was removed and the tip was sent for culture as requested. Manual pressure was applied to t he venotomy site until hemostasis was obtained. The dermatotomy was closed with interrupted 2-0 Prol darlin suture. Sterile dressing was applied. The patient tolerated the procedure well and there were no complications. CONCLUSION: Uncomplicated Permcath removal. Sutures in the supraclavicular region can be removed in 7 days Chet Chairez MD on May 08, 2017 at 15:58 Board Certified Radiologist. This report was verified electronically.
== END 2017-05-08 14:50 | disposition home or self-care (01) ==
LOC: HROP 13:12 → HRIP 13:15 → HROP 14:50
PROVIDERS: ATTEND Specialist
DX: Z45.2 Encounter for adjustment and management of vascular access device (principal); I12.0 Hypertensive chronic kidney disease with stage 5 chronic kidney disease or end stage renal disease; N18.6 End stage renal disease; B20 Human immunodeficiency virus [HIV] disease; Z99.2 Dependence on renal dialysis
CPT/HCPCS: 36589; 87071

== ENCOUNTER 2017-06-21 21:31 | Emergency (ER) | payer MEDICARE, MEDICAID ==
[~2017-06-21] VITALS: Ht 160 cm; Wt 55.0 kg
[2017-06-21 22:08] VITALS: BP 140/85; PULSE 76; RESP 18; TEMP 99.2; O2SAT 100
[2017-06-21] MEDS ORDERED: ACETAMINOPHEN/HYDROcodone 325 MG/5 MG TAB PO ONE (23:00)
--- NOTE | 2017-06-21 23:18 | PD ---
HPI Chief Complaint: Musculoskeletal Complaint Time Seen by Provider: 22:50 Travel History International Travel<30 days: No Contact w/Intl Traveler<30days: No Traveled to known affect area: No History of Present Illness HPI 41-year-old female complains of a pulled muscle in the region of the right gluteus. Duration is been 4 days. The onset occurred after the patient performed a workout routine doing lunges and squats. She reports the pain to be continuous and severe. She tried creams and told at home. No benefit. Timing constant. Pain is worse with palpation. No position of comfort. ESRD attended HD on Friday as per normal. PFSH Past Medical History Hx Anticoagulant Therapy: No Anemia: Yes Arthritis: No Asthma: Yes (as a child) Autoimmune Disease: Yes (HIV) Blood Disorders: No Anxiety: No Depression: No Heart Rhythm Problems: No Cancer: No Cardiovascular Problems: Yes High Cholesterol: No Chemotherapy: No Chest Pain: No Congestive Heart Failure: No COPD: No Cerebrovascular Accident: Yes Diabetes: No Dialysis: Yes (Fri ) Diminished Hearing: No Endocrine: No Gastrointestinal Disorders: Yes (HX GI BLEED) GERD: Yes Glaucoma: No Genitourinary: Yes Headaches: No Hepatitis: No Hiatal Hernia: Yes Hypertension: Yes Immune Disorder: No Kidney Stones: No Medical other: Yes (HIV+) Musculoskeletal: Yes (JOINTS ACHE - ESPECIALLY LOWER EXTREMITIES ) Neurologic: Yes (STROKE 2010 NO RESIDUAL EFFECTS) Psychiatric: No Reproductive: No Respiratory: No Immunizations Current: Yes Migraines: No Myocardial Infarction: No Radiation Therapy: No Renal Failure: Yes Seizures: No Sickle Cell Disease: No Sleep Apnea: No Thyroid Disease: Yes (PARATHYROID) Ulcer: No Tetanus Vaccination: < 5 Years Influenza Vaccination: Yes ?: Not LMP: 06/21/2017 : 1 Para: 1 Miscarriage: 0 : 0 Past Surgical History Abdominal Surgery: No AICD: No Appendectomy: No Body Medical Devices: TENCKHOFF TUBE FOR PERITONEAL DIALYSIS Cardiac Surgery: No Section: Yes Cholecystectomy: No Ear Surgery: No Endocrine Surgery: No Eye Surgery: Yes (CATARACTS OSCAR FROM BOTH EYES IN 1999) Genitourinary Surgery: Yes (TENKOFF CATHETER IN 2004 FOR PERITONEAL DIAYLSIS) Gynecologic Surgery: No Hysterectomy: Yes Joint Replacement: No Neurologic Surgery: No Oral Surgery: No Pacemaker: No Thoracic Surgery: No Other Surgery: Yes (left arm fistula, permacath cath placment and removal, parathyroid removal) Social History Alcohol Use: No Tobacco Use: No Substance Use: No Allergies-Medications (Allergen,Severity, Reaction): Coded Allergies: ferumoxytol (Unverified Allergy, Severe, IRON INJECTIONS, 06/21/17) PT STATES THEY HAVE NOW CHANGED BRANDS OF IRON & SHE IS ABLE TO TAKE THE NEW BRAND OF IRON *MDRO Multi-Drug Resistant Organism (Verified Adverse Reaction, Unknown, ) MRSA PCR 09/07/16 Positive [facility] - E. cloacae (peritoneal fluid) - 05/04/16 MRSA (blood) 10/12/16, (cath tip) 10/14/16 Reported Meds & Prescriptions Reported Meds & Active Scripts Active Tramadol (Tramadol HCl) 50 Mg Tab 100 Mg PO Q6H PRN Reported Renal Vitamin (B-Complex W/ C & Folic Acid) 1 Cap 1 Cap PO DAILY If on dialysis, take after treatment. Vitamin D3 (Cholecalciferol) 50,000 Unit Cap 50,000 Units PO WEEKLY Valacyclovir (Valacyclovir HCl) 1 Gm Tab 1,000 Mg PO DAILY Ranitidine (Ranitidine HCl) 150 Mg Tab 150 Mg PO MOWEFR Aspirin Adult Low Strength (Aspirin) 81 Mg Tabdr 81 Mg PO DAILY Lisinopril 20 Mg Tab 20 Mg PO BID Amlodipine (Amlodipine Besylate) 10 Mg Tab 10 Mg PO DAILY Labetalol (Labetalol HCl) 300 Mg Tab 300 Mg PO TID Lipitor (Atorvastatin Calcium) 10 Mg Tab 10 Mg PO MOWEFR Take 1 tablet (10mg) at bedtime on Friday,Friday and Friday Tivicay (Dolutegravir Sodium) 50 Mg Tab 50 Mg PO DAILY Epivir (Lamivudine) 150 Mg Tab 150 Mg PO DAILY Edurant (Rilpivirine) 25 Mg Tab 25 Mg PO DAILY Review of Systems General / Constitutional: No: Fever Eyes: No: Photophobia HENT: No: Sore Throat Physical Exam Narrative GENERAL: 41-year-old female pleasant well-nourished well Vital Signs Date Time Temp Pulse Resp B/P (MAP) Pulse Ox O2 Delivery O2 Flow Rate FiO2 06/21/17 22:08 99.2 76 18 140/85 (103) 100 SKIN: Warm and dry. CARDIOVASCULAR: Regular rate and rhythm without murmurs, gallops, or rubs. RESPIRATORY: Breath sounds equal bilaterally. No accessory muscle use. GASTROINTESTINAL: Abdomen soft, non-tender, nondistended. MUSCULOSKELETAL: No cyanosis, or edema. Tenderness palpation region of the right gluteus. No overlying deformity No change in skin. Range of motion normal. Patient ambulatory. BACK: Nontender without obvious deformity. No CVA tenderness. Data Data Last Documented VS Vital Signs Date Time Temp Pulse Resp B/P (MAP) Pulse Ox O2 Delivery O2 Flow Rate FiO2 06/21/17 22:08 99.2 76 18 140/85 (103) 100 Orders Orders Acetamin-Hydrocod 325-5 Mg ([place] 5-325 (06/21/17 23:00) Ed Discharge Order (06/21/17 23:18) MDM Medical Decision Making Medical Screen Exam Complete: Yes Emergency Medical Condition: Yes Differential Diagnosis hematoma, muscle strain, cellulitis Narrative Course patient with R gluteus strain pain controlled pt ready for discharge home Diagnosis Primary Impression: Muscle strain of gluteal region Qualified Codes: S76.011A - Strain of muscle, fascia and tendon of right hip, initial encounter Med/Other Pt SpecificInfo: Prescription(s) given Scripts Tramadol (Tramadol) 50 Mg Tab 100 MG PO Q6H Y for PAIN SCALE 6 TO 10, #10 TAB 0 Refills Prov: Sukumar Laughlin MD 06/21/17 Disposition: 01 DISCHARGE HOME Condition: Stable Sukumar Laughlin MD Jun 21, 2017 23:18
[2017-06-21] MEDS ORDERED: TRAM50TA PO (23:44)
== END 2017-06-22 00:16 | disposition home or self-care (01) ==
LOC: NEPC 21:31
DX: S76.011A Strain of muscle, fascia and tendon of right hip, initial encounter (principal); I12.0 Hypertensive chronic kidney disease with stage 5 chronic kidney disease or end stage renal disease; N18.6 End stage renal disease; X50.9XXA Other and unspecified overexertion or strenuous movements or postures, initial encounter; Y93.B9 Activity, other involving muscle strengthening exercises; Z99.2 Dependence on renal dialysis
CPT/HCPCS: 99283

== ENCOUNTER 2017-08-06 09:52 | Emergency (ER) | payer MEDICARE, MEDICAID ==
[~2017-08-06] VITALS: Ht 160 cm; Wt 58.0 kg
[~2017-08-06 09:52] MED LIST changes: +TRAM50TA PO
[2017-08-06 10:01] VITALS: BP 194/97; PULSE 65; RESP 20; TEMP 97.6; O2SAT 96
--- NOTE | 2017-08-06 11:26 | PD ---
HPI Chief Complaint: Abdominal Pain Time Seen by Provider: 10:53 Travel History International Travel<30 days: No Contact w/Intl Traveler<30days: No Traveled to known affect area: No History of Present Illness HPI The patient was seen and examined in the presence of the nurse. This patient complains of right flank pain. At this time is located in her right side. Symptoms are severe. She is very uncomfortable with pain. Duration is one day. She woke up this morning with the pain. no Alleviating factors. No exacerbating factors. She does not have any documented fever. She has nausea. She dialyzed yesterday as scheduled. She does not produce any urine. No PFSH Past Medical History Hx Anticoagulant Therapy: No Anemia: Yes Arthritis: No Asthma: Yes (as a child) Autoimmune Disease: Yes (HIV) Blood Disorders: No Anxiety: No Depression: No Heart Rhythm Problems: No Cancer: No Cardiovascular Problems: Yes High Cholesterol: No Chemotherapy: No Chest Pain: No Congestive Heart Failure: No COPD: No Cerebrovascular Accident: Yes Diabetes: No Dialysis: Yes () Diminished Hearing: No Endocrine: No Gastrointestinal Disorders: Yes (HX GI BLEED) GERD: Yes Glaucoma: No Genitourinary: Yes Headaches: No Hepatitis: No Hiatal Hernia: Yes Hypertension: Yes Immune Disorder: No Kidney Stones: No Medical other: Yes (HIV+) Musculoskeletal: Yes (JOINTS ACHE - ESPECIALLY LOWER EXTREMITIES ) Neurologic: Yes (STROKE 2010 NO RESIDUAL EFFECTS) Psychiatric: No Reproductive: No Respiratory: No Immunizations Current: Yes Migraines: No Myocardial Infarction: No Radiation Therapy: No Renal Failure: Yes Seizures: No Sickle Cell Disease: No Sleep Apnea: No Thyroid Disease: Yes (PARATHYROID) Ulcer: No Tetanus Vaccination: < 5 Years Influenza Vaccination: Yes ?: Not LMP: 07/05/17 : 1 Para: 1 Miscarriage: 0 : 0 Past Surgical History Abdominal Surgery: No AICD: No Appendectomy: No Body Medical Devices: TENCKHOFF TUBE FOR PERITONEAL DIALYSIS Cardiac Surgery: No Section: Yes Cholecystectomy: No Ear Surgery: No Endocrine Surgery: No Eye Surgery: Yes (CATARACTS OSCAR FROM BOTH EYES IN 1999) Genitourinary Surgery: Yes (TENKOFF CATHETER IN 2004 FOR PERITONEAL DIAYLSIS) Gynecologic Surgery: No Hysterectomy: Yes Joint Replacement: No Neurologic Surgery: No Oral Surgery: No Pacemaker: No Thoracic Surgery: No Other Surgery: Yes (left arm fistula, permacath cath placment and removal, parathyroid removal) Social History Alcohol Use: No Tobacco Use: No Substance Use: No Allergies-Medications (Allergen,Severity, Reaction): Coded Allergies: ferumoxytol (Unverified Allergy, Severe, IRON INJECTIONS, 08/06/17) PT STATES THEY HAVE NOW CHANGED BRANDS OF IRON & SHE IS ABLE TO TAKE THE NEW BRAND OF IRON *MDRO Multi-Drug Resistant Organism (Verified Adverse Reaction, Unknown, ) MRSA PCR 09/07/16 Positive [facility] - E. cloacae (peritoneal fluid) - 05/04/16 MRSA (blood) 10/12/16, (cath tip) 10/14/16 Reported Meds & Prescriptions Reported Meds & Active Scripts Active Tylenol-Codeine #3 (Acetaminophen-Codeine) 300-30 mg Tab 1 Tab PO Q6H PRN Reported Renal Vitamin (B-Complex W/ C & Folic Acid) 1 Cap 1 Cap PO DAILY If on dialysis, take after treatment. Vitamin D3 (Cholecalciferol) 50,000 Unit Cap 50,000 Units PO WEEKLY Valacyclovir (Valacyclovir HCl) 1 Gm Tab 1,000 Mg PO DAILY Ranitidine (Ranitidine HCl) 150 Mg Tab 150 Mg PO MOWEFR Aspirin Adult Low Strength (Aspirin) 81 Mg Tabdr 81 Mg PO DAILY Lisinopril 20 Mg Tab 20 Mg PO BID Amlodipine (Amlodipine Besylate) 10 Mg Tab 10 Mg PO DAILY Labetalol (Labetalol HCl) 300 Mg Tab 300 Mg PO TID Lipitor (Atorvastatin Calcium) 10 Mg Tab 10 Mg PO MOWEFR Take 1 tablet (10mg) at bedtime on Friday,Friday and Friday Tivicay (Dolutegravir Sodium) 50 Mg Tab 50 Mg PO DAILY Epivir (Lamivudine) 150 Mg Tab 150 Mg PO DAILY Edurant (Rilpivirine) 25 Mg Tab 25 Mg PO DAILY Review of Systems General / Constitutional: No: Fever Eyes: No: Visual changes HENT: No: Headaches Cardiovascular: No: Chest Pain or Discomfort Respiratory: No: Shortness of Breath Gastrointestinal: Positive: Nausea, Vomiting, No: Abdominal Pain Genitourinary: Positive: Flank Pain, No: Dysuria Musculoskeletal: No: Pain Skin: No Rash Neurologic: No: Weakness Psychiatric: No: Depression Endocrine: No: Polydipsia Hematologic/Lymphatic: No: Easy Bruising Physical Exam Narrative GENERAL: Well-nourished, well-developed patient with severe right flank pain . SKIN: Focused skin assessment reveals no rash and nodules. Skin is Warm and dry. HEAD: Atraumatic. Normocephalic. EYES: Pupils equal and round. No scleral icterus. No injection or drainage. ENT: No nasal bleeding or discharge. Mucous membranes pink and moist. NECK: Trachea midline. No JVD. CARDIOVASCULAR: Regular rate and rhythm. No murmur appreciated. RESPIRATORY: No accessory muscle use. Clear to auscultation. Breath sounds equal bilaterally. GASTROINTESTINAL: Abdomen soft, non-tender, nondistended. Hepatic and splenic margins not palpable. MUSCULOSKELETAL: No obvious deformities. No clubbing. No cyanosis. No edema. AV fistula in the left arm NEUROLOGICAL: Awake and alert. No obvious cranial nerve deficits. Motor grossly within normal limits. Normal speech. PSYCHIATRIC: Appropriate mood and affect; insight and judgment normal. Data Data Last Documented VS Vital Signs Date Time Temp Pulse Resp B/P (MAP) Pulse Ox O2 Delivery O2 Flow Rate FiO2 08/06/17 14:30 78 20 139/88 (105) 98 Room Air 08/06/17 10:01 97.6 Orders Orders Hydromorphone Pf Inj (Dilaudid Pf Inj) (08/06/17 11:30) Ondansetron Odt (Zofran Odt) (08/06/17 11:30) Complete Blood Count With Diff (08/06/17 11:19) Comprehensive Metabolic Panel (08/06/17 11:19) Ct Abd/Pel W/O Iv Contrast (08/06/17 ) Ecg Monitoring (08/06/17 12:11) Insulin Human Regular Inj (Novolin R Inj (08/06/17 12:30) Dextrose 50% In Timothy (Vial) Inj (D50w (Vi (08/06/17 12:15) Sodium Bicarbonate 8.4% Inj (Sodium Bica (08/06/17 12:15) Sodium Polysty Sulfate Liq (Kayexalate L (08/06/17 12:15) Beta Hcg (Quant/Titer) (08/06/17 14:20) Basic Metabolic Panel (Bmp) (08/06/17 14:20) Labetalol Inj (Trandate Inj) (08/06/17 14:30) Dextrose 50% In Timothy (Syr) Inj (D50w (Syr (08/06/17 15:30) Dextrose 50% In Timothy (Syr) Inj (D50w (Syr (08/06/17 15:23) Labs Laboratory Tests Test 08/06/17 11:20 08/06/17 14:30 White Blood Count 8.3 TH/MM3 Red Blood Count 3.87 MIL/MM3 Hemoglobin 13.2 GM/DL Hematocrit 40.7 % Mean Corpuscular Volume 105.1 FL Mean Corpuscular Hemoglobin 34.2 PG Mean Corpuscular Hemoglobin Concent 32.5 % Red Cell Distribution Width 12.9 % Platelet Count 223 TH/MM3 Mean Platelet Volume 9.6 FL Neutrophils (%) (Auto) 69.9 % Lymphocytes (%) (Auto) 16.7 % Monocytes (%) (Auto) 7.2 % Eosinophils (%) (Auto) 5.4 % Basophils (%) (Auto) 0.8 % Neutrophils # (Auto) 5.8 TH/MM3 Lymphocytes # (Auto) 1.4 TH/MM3 Monocytes # (Auto) 0.6 TH/MM3 Eosinophils # (Auto) 0.4 TH/MM3 Basophils # (Auto) 0.1 TH/MM3 CBC Comment DIFF FINAL Differential Comment Blood Urea Nitrogen 64 MG/DL 69 MG/DL Creatinine 10.12 MG/DL 10.63 MG/DL Random Glucose 85 MG/DL 38 MG/DL Total Protein 10.3 GM/DL Albumin 3.9 GM/DL Calcium Level 8.7 MG/DL 8.4 MG/DL Alkaline Phosphatase 170 U/L Aspartate Amino Transf (AST/SGOT) 31 U/L Alanine Aminotransferase (ALT/SGPT) 29 U/L Total Bilirubin 0.6 MG/DL Sodium Level 135 MEQ/L 140 MEQ/L Potassium Level 6.6 MEQ/L 5.3 MEQ/L Chloride Level 99 MEQ/L 102 MEQ/L Carbon Dioxide Level 20.6 MEQ/L 25.6 MEQ/L Anion Gap 15 MEQ/L 12 MEQ/L Estimat Glomerular Filtration Rate 5 ML/MIN 5 ML/MIN Human Chorionic Gonadotropin, Quant LESS THAN 1 MIU/ML MDM Medical Decision Making Medical Screen Exam Complete: Yes Emergency Medical Condition: Yes Medical Record Reviewed: Yes Differential Diagnosis Kidney stone, sciatica, cholecystitis Narrative Course I have reviewed the patient's electronic medical record. Patient is complex medical history. She has end-stage renal disease secondary to severe hypertension and is HIV positive, taking antivirals IV placed and labs sent I gave her IV Dilaudid and a dose of Zofran for symptom relief CT is ordered My initial suspicion is kidney stone based on her presentation. She does not have any abdominal tenderness but severe pain in her right side. She is restless and uncomfortable CBC normal Metabolic profile reveals hyperkalemia of 6.6 and creatinine of 10 She is due for dialysis tomorrow but 6.6 potassium is critical and needs to be emergently addressed I gave her IV glucose and IV insulin and IV bicarbonate and a dose of Kayexalate Later I redrew her labs and potassium is now at 5.3, much more reasonable CT scan results are reviewed with her. She does have a approximately 2 x 2 inch right lower quadrant ill-defined mass in the region of the right ovary. We discussed this and she will discuss it with her physician and likely further image it with ultrasounding but this does not need to emergently be done now. Her beta hCG is negative She will dialyze tomorrow as scheduled. I wrote her a dozen pain medication pills. She will follow-up with her physician. Critical Care Narrative Aggregate critical care time was 40 minutes. Time to perform other separately billable procedures was not included in the critical care time. My time did not include minutes spent treating any other patients simultaneously or on activities that did not directly contribute to the patient's treatment. The services I provided to this patient were to treat and/or prevent clinically significant deterioration that could result in: Cardiopulmonary arrest, cardiac arrhythmia I provided critical care services requiring my management, as noted below: Chart data review, documentation time, medication orders and management, vital sign assessments/reviewing monitor data, ordering and reviewing lab tests, ordering and interpreting/reviewing x-rays and diagnostic studies, care of the patient and discussion of the patient with the admitting physicians. Diagnosis Primary Impression: Right flank pain Additional Impressions: Abdominal pain Qualified Codes: R10.31 - Right lower quadrant pain End stage kidney disease Hyperkalemia Additional Instructions: The patient was advised to follow up with their physician and return if they worsen. Discuss your right lower quadrant ill-defined mass in the region of the right ovary with your physician Dialyze tomorrow as scheduled Med/Other Pt SpecificInfo: Prescription(s) given Scripts Acetaminophen-Codeine (Tylenol-Codeine #3) 300-30 mg Tab 1 TAB PO Q6H Y for PAIN, #12 TAB 0 Refills Prov: Efrain Medellin MD 08/06/17 Disposition: 01 DISCHARGE HOME Condition: Stable Efrain Medellin MD August 06, 2017 11:26
[2017-08-06] MEDS ORDERED: HYDROmorphone HCL PF 2 MG/ML VIAL IVS ONE (11:30)
[2017-08-06] MEDS ORDERED: ONDANSETRON ODT 4 MG TAB PO ONE (11:30)
[2017-08-06 11:32] LABS: AUTOMATED NEUTROPHIL # 5.8 TH/MM3 (1.8-7.7); BASOPHIL # 0.1 TH/MM3 (0-0.2); BASOPHIL % 0.8 % (0.0-2.0); EOSINOPHIL # 0.4 TH/MM3 (0-0.4); EOSINOPHIL % 5.4 % (0.0-4.0); HEMATOCRIT 40.7 % (35.0-46.0); HEMOGLOBIN 13.2 GM/DL (11.6-15.3); LYMPH % 16.7 % (9.0-44.0); LYMPHOCYTE # 1.4 TH/MM3 (1.0-4.8); MEAN CELL VOLUME 105.1 FL (80.0-100.0); MEAN CORPUSCULAR HEMOGLOBIN 34.2 PG (27.0-34.0); MEAN CORPUSCULAR HGB CONC 32.5 % (32.0-36.0); MEAN PLATELET VOLUME 9.6 FL (7.0-11.0); MONO % 7.2 % (0.0-8.0); MONOCYTE # 0.6 TH/MM3 (0-0.9); NEUT % 69.9 % (16.0-70.0); PLATELET COUNT 223 TH/MM3 (150-450); RED BLOOD COUNT 3.87 MIL/MM3 (4.00-5.30); RED CELL DISTRIBUTION WIDTH 12.9 % (11.6-17.2); WHITE BLOOD COUNT 8.3 TH/MM3 (4.0-11.0)
[2017-08-06 11:58] LABS: ALBUMIN 3.9 GM/DL (3.4-5.0); ALKALINE PHOSPHATASE 170 U/L (45-117); ALT (GPT) 29 U/L (10-53); AST (GOT) 31 U/L (15-37); BICARBONATE 20.6 MEQ/L (21.0-32.0); BLOOD UREA NITROGEN 64 MG/DL (7-18); CALCIUM 8.7 MG/DL (8.5-10.1); CHLORIDE 99 MEQ/L (98-107); GLOMERULAR FILTRATION RATE 5 ML/MIN (>89); GLUCOSE,RANDOM 85 MG/DL (74-106); SODIUM (NA) 135 MEQ/L (136-145); TOTAL BILIRUBIN ADULT 0.6 MG/DL (0.2-1.0); TOTAL PROTEIN 10.3 GM/DL (6.4-8.2)
[2017-08-06 12:07] LABS: CREATININE 10.12 MG/DL (0.50-1.00)
[2017-08-06 12:15] VITALS: BP 184/95; PULSE 63; RESP 17; O2SAT 96
[2017-08-06] MEDS ORDERED: DEXTROSE 50% IN WATER 50 ML VIAL(D50) IV PUSH ONE (12:15)
[2017-08-06] MEDS ORDERED: SODIUM BICARBONATE 8.4% SOLN 50 MEQ/50 ML VIAL SLOW IVP ONE (12:15)
[2017-08-06] MEDS ORDERED: SODIUM POLYSTYRENE SULFONATE SUSP 15 GM/60 ML CUP PO ONE (12:15)
[2017-08-06] MEDS ORDERED: INSULIN HUMAN REGULAR 1,000 UNITS/10 ML VIAL IV PUSH ONE (12:30)
--- NOTE | 2017-08-06 14:11 | RADRPT ---
EXAM DATE: 08/06/2017 1:50 PM EDT AGE/SEX: 41 years / Female INDICATIONS: Right flank pain. CLINICAL DATA: This is the patient's initial encounter. Patient reports that signs and symptoms have been present for 1 day and indicates a pain score of 5/10. MEDICAL/SURGICAL HISTORY: Hypertension. Hysterectomy. RADIATION DOSE: 6.71 CTDI (mGy) COMPARISON: [facility] – [place] ABDOMEN & PELVIS W/O CONTRAST, 04/29/2016. . TECHNIQUE: Multiple contiguous axial images were obtained through the abdomen. Images were obtained using multiple row detector helical technique. Using dose reduction techniques, radiation dose was ke pt as low as reasonably achievable to obtain optimal diagnostic quality images. FINDINGS: Lower Lungs: The visualized lower lungs are clear. Liver: The liver has a homogeneous density without space-occupying lesion. There is no dilation of th e biliary tree. Spleen: Homogeneous density without enlargement. Pancreas: Unremarkable without mass or calcification. Kidneys: Kidneys again noted to be small and atrophic in appearance with multiple vascular nonobstru cting calcifications. There is a stable ringlike calcification with low density in the right lateral mid kidney. There is no obstruction. Adrenal Glands: Unremarkable. Aorta: The aorta and proximal iliac vessels are grossly unremarkable without aneurysmal dilation. Bowel/Mesentery: No oral contrast was given limiting the sensitivity. The bowel loops are grossly unr emarkable. The cecum and sigmoid colon have a normal configuration. Abdominal Wall: Intact. Retroperitoneum: No evidence of adenopathy in the retrocrural, para-aortic, or deep pelvic regions. Bladder: Contours are smooth. Reproductive Organs: Benign uterine calcifications are again noted. There is a subtle ill-defined ma sslike area in the right adnexal region measuring up to approximately 4.5 x 4.1 x 3.2 cm in diameter. Inguinal: The inguinal region is unremarkable without evidence of adenopathy. Bony Structures: Unremarkable. CONCLUSION: 1. The kidneys remain small and atrophic with multiple nonobstructing calcifications. There is no hy dronephrosis and the ureters are unremarkable. 2. Ill-defined masslike area in the right adnexal region measuring up to 4.5 x 4.1 x 3.2 cm is nonsp ecific with may represent a prominent right ovary. This could be further evaluated with pelvic ultras ound. 3. Interval of previously noted dialysis catheter. Electronically signed by: Cristóbal Conde MD 08/06/2017 2:10 PM EDT
[2017-08-06 14:30] VITALS: BP 139/88; PULSE 78; RESP 20; O2SAT 98
[2017-08-06] MEDS ORDERED: LABETALOL HCL 100 MG/20 ML VIAL IV PUSH ONE (14:30)
[2017-08-06 15:14] LABS: BICARBONATE 25.6 MEQ/L (21.0-32.0); BLOOD UREA NITROGEN 69 MG/DL (7-18); CALCIUM 8.4 MG/DL (8.5-10.1); CHLORIDE 102 MEQ/L (98-107); GLOMERULAR FILTRATION RATE 5 ML/MIN (>89); SODIUM (NA) 140 MEQ/L (136-145)
[2017-08-06 15:20] LABS: CREATININE 10.63 MG/DL (0.50-1.00); GLUCOSE,RANDOM 38 MG/DL (74-106)
[2017-08-06] MEDS ORDERED: DEXTROSE 50% IN WATER 50 ML SYRINGE ONE (15:23)
[2017-08-06] MEDS ORDERED: DEXTROSE 50% IN WATER 50 ML SYRINGE IV PUSH ONE (15:30)
[2017-08-06] MEDS ORDERED: TYLETAB34 PO (16:40)
== END 2017-08-06 18:30 | disposition home or self-care (01) ==
LOC: NEPD 09:52
DX: R10.31 Right lower quadrant pain (principal); I12.0 Hypertensive chronic kidney disease with stage 5 chronic kidney disease or end stage renal disease; N18.6 End stage renal disease; E87.5 Hyperkalemia; R11.2 Nausea with vomiting, unspecified; E07.9 Disorder of thyroid, unspecified; Z21 Asymptomatic human immunodeficiency virus [HIV] infection status; Z99.2 Dependence on renal dialysis; Z86.73 Personal history of transient ischemic attack (TIA), and cerebral infarction without residual deficits; Z88.8 Allergy status to other drugs, medicaments and biological substances; Z79.899 Other long term (current) drug therapy
CPT/HCPCS: 74176; 80053; 84702; 85025; 96374; 96375; 96376; 99291; J1170; J1815; 80048

== ENCOUNTER 2017-09-01 15:44 | Emergency (ER) | payer MEDICARE, MEDICAID ==
[~2017-09-01] VITALS: Ht 160 cm; Wt 56.5 kg
[~2017-09-01 15:44] MED LIST changes: -TRAM50TA PO; +TYLETAB34 PO
[2017-09-01 15:48] VITALS: BP 134/78; PULSE 70; RESP 14; TEMP 97.6; O2SAT 98
--- NOTE | 2017-09-01 16:05 | PD ---
HPI Chief Complaint: ENT Complaint Time Seen by Provider: 16:03 Travel History International Travel<30 days: No Contact w/Intl Traveler<30days: No Traveled to known affect area: No History of Present Illness HPI 41-year-old female with history of end-stage renal disease presents emergency department for evaluation of muffled hearing in her left ear 2 weeks. Patient states she has been using Q-tips and it has only been getting worse. She denies any pain. Denies any trauma. She has no other symptoms to report. PFSH Past Medical History Hx Anticoagulant Therapy: No Anemia: Yes Arthritis: No Asthma: Yes (as a child) Autoimmune Disease: Yes (HIV) Blood Disorders: No Anxiety: No Depression: No Heart Rhythm Problems: No Cancer: No Cardiovascular Problems: Yes High Cholesterol: No Chemotherapy: No Chest Pain: No Congestive Heart Failure: No COPD: No Cerebrovascular Accident: Yes Diabetes: No Dialysis: Yes () Diminished Hearing: No Endocrine: No Gastrointestinal Disorders: Yes (HX GI BLEED) GERD: Yes Glaucoma: No Genitourinary: Yes Headaches: No Hepatitis: No Hiatal Hernia: Yes Hypertension: Yes Immune Disorder: No Kidney Stones: No Musculoskeletal: Yes (JOINTS ACHE - ESPECIALLY LOWER EXTREMITIES ) Neurologic: Yes (STROKE 2010 NO RESIDUAL EFFECTS) Psychiatric: No Reproductive: No Respiratory: No Immunizations Current: Yes Migraines: No Myocardial Infarction: No Radiation Therapy: No Renal Failure: Yes Seizures: No Sickle Cell Disease: No Sleep Apnea: No Thyroid Disease: Yes (PARATHYROID) Ulcer: No ?: Not : 1 Para: 1 Miscarriage: 0 : 0 Past Surgical History Abdominal Surgery: No AICD: No Appendectomy: No Body Medical Devices: TENCKHOFF TUBE FOR PERITONEAL DIALYSIS Cardiac Surgery: No Section: Yes Cholecystectomy: No Ear Surgery: No Endocrine Surgery: No Eye Surgery: Yes (CATARACTS OSCAR FROM BOTH EYES IN 1999) Genitourinary Surgery: Yes (TENKOFF CATHETER IN 2004 FOR PERITONEAL DIAYLSIS) Gynecologic Surgery: No Hysterectomy: Yes Joint Replacement: No Neurologic Surgery: No Oral Surgery: No Pacemaker: No Thoracic Surgery: No Other Surgery: Yes (left arm fistula, permacath cath placment and removal, parathyroid removal) Social History Alcohol Use: No Tobacco Use: No Substance Use: No Allergies-Medications (Allergen,Severity, Reaction): Coded Allergies: ferumoxytol (Unverified Allergy, Severe, IRON INJECTIONS, 09/01/17) PT STATES THEY HAVE NOW CHANGED BRANDS OF IRON & SHE IS ABLE TO TAKE THE NEW BRAND OF IRON *MDRO Multi-Drug Resistant Organism (Verified Adverse Reaction, Unknown, ) MRSA PCR 09/07/16 Positive [facility] - E. cloacae (peritoneal fluid) - 05/04/16 MRSA (blood) 10/12/16, (cath tip) 10/14/16 Reported Meds & Prescriptions Reported Meds & Active Scripts Active Tylenol-Codeine #3 (Acetaminophen-Codeine) 300-30 mg Tab 1 Tab PO Q6H PRN Reported Renal Vitamin (B-Complex W/ C & Folic Acid) 1 Cap 1 Cap PO DAILY If on dialysis, take after treatment. Vitamin D3 (Cholecalciferol) 50,000 Unit Cap 50,000 Units PO WEEKLY Valacyclovir (Valacyclovir HCl) 1 Gm Tab 1,000 Mg PO DAILY Ranitidine (Ranitidine HCl) 150 Mg Tab 150 Mg PO MOWEFR Aspirin Adult Low Strength (Aspirin) 81 Mg Tabdr 81 Mg PO DAILY Lisinopril 20 Mg Tab 20 Mg PO BID Amlodipine (Amlodipine Besylate) 10 Mg Tab 10 Mg PO DAILY Labetalol (Labetalol HCl) 300 Mg Tab 300 Mg PO TID Lipitor (Atorvastatin Calcium) 10 Mg Tab 10 Mg PO MOWEFR Take 1 tablet (10mg) at bedtime on Friday,Friday and Friday Tivicay (Dolutegravir Sodium) 50 Mg Tab 50 Mg PO DAILY Epivir (Lamivudine) 150 Mg Tab 150 Mg PO DAILY Edurant (Rilpivirine) 25 Mg Tab 25 Mg PO DAILY Review of Systems Except as stated in HPI: all other systems reviewed are Neg Physical Exam Narrative GENERAL: Well-nourished, well-developed female patient in no acute distress SKIN: Focused skin assessment warm/dry. HEAD: Normocephalic. No mastoid tenderness EARS: Bilateral pinnae and external canals appear within normal limits. After cerumen is is removed from the left canal bilateral tympanic membranes without erythema, dullness or perforation. EYES: No scleral icterus. No injection or drainage. NECK: Supple, trachea midline. No JVD or lymphadenopathy. CARDIOVASCULAR: Regular rate and rhythm without murmurs, gallops, or rubs. RESPIRATORY: Breath sounds equal bilaterally. No accessory muscle use. Data Data Last Documented VS Vital Signs Date Time Temp Pulse Resp B/P (MAP) Pulse Ox O2 Delivery O2 Flow Rate FiO2 09/01/17 16:52 09/01/17 15:48 97.6 70 14 98 Orders Orders Ed Discharge Order (09/01/17 16:25) MDM Medical Decision Making Medical Screen Exam Complete: Yes Emergency Medical Condition: Yes Medical Record Reviewed: Yes Differential Diagnosis Cerumen impaction versus otitis media versus otitis externa Narrative Course 41-year-old female presents emergency department for evaluation of muscle tear in her left ear. Patient does have cerumen impaction. Cerumen is removed using a curette without difficulty. Patient tolerated this well. Following removal of cerumen, patient states that her hearing is no longer muffled. The membrane remains intact. Patient is counseled on care and encouraged follow-up with primary care provider. She agrees to return immediately with acute worsening symptoms. Procedures Procedure Narrative Consent is obtained prior to procedure. A curette is inserted into the left external canal. A large amount of soft brown wax is removed without difficulty. Tympanic membrane remained intact. Patient tolerated this well. Diagnosis Primary Impression: Impacted cerumen of left ear Referrals: Primary Care Physician Patient Instructions: Cerumen Impaction (ED), General Instructions Additional Instructions: Avoid Q-tip use Follow-up with a primary care provider Return immediately with acute worsening symptoms Med/Other Pt SpecificInfo: No Change to Meds Disposition: 01 DISCHARGE HOME Condition: Stable Angie Dsouza Sep 01, 2017 16:05
== END 2017-09-01 16:53 | disposition home or self-care (01) ==
LOC: NEPK 15:44
DX: H61.22 Impacted cerumen, left ear (principal); I12.0 Hypertensive chronic kidney disease with stage 5 chronic kidney disease or end stage renal disease; N18.6 End stage renal disease; Z99.2 Dependence on renal dialysis
CPT/HCPCS: 69210